=== PATIENT | female | born 1940 | race Caucasian/White ===

== ENCOUNTER 2019-10-16 07:45 | Inpatient (IN) | payer MEDICARE, BC ==
--- NOTE | 2019-10-16 08:03 | EDM.PDOC ---
ED HPI GENERAL MEDICAL PROBLEM - General Chief Complaint: Gastrointestinal Problem Stated Complaint: NAUSEA,VOMITING Time Seen by Provider: 10/16/19 07:58 Source of Information: Reports: Patient History Limitations: Reports: No Limitations - History of Present Illness INITIAL COMMENTS - FREE TEXT/NARRATIVE: 79-year-old female who had a hysterectomy and [facility] [place] on 2019 and he was discharged on 10/14/2019. She had by report an uneventful surgery with no problems but has been having fairly significant nausea all in the postoperative period. She was having nausea when she was discharged on Thursday and this is something that she has had following all of her previous surgeries and she reports that the nausea does is not being kept under control with the Zofran that she has been taking every 4 hours. She also had some constipation issues around her surgery and was given medication to help with this and has had diarrhea for the past 2-3 days with 6-7 loose stools yesterday. She has had some dry heaving and small amounts of emesis but mostly with just profound nausea. She has been taking some liquids but decreased amounts and she has not been eating. She tells me that she feels bad all over but she really has minimal pain in her abdomen that is diffuse and soreness that she would rated as mild. She has had no chest pains or arm or neck pain. She did have some low O2 saturations postoperatively and had workup which included a CT of her chest which showed no evidence of PE but she was discharged on oxygen at 1-2 L/m via nasal cannula. No fevers or chills. No dysuria. No cough. She does feel somewhat weak and is somewhat dizzy when standing. She is on Lasix adaily for peripheral edema and also usually on Zaroxolyn but has not been on Zaroxolyn for the past 3 days. There are no other associated signs or symptoms. There are no other modifying factors. 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(s) (Zofran) post op Pain Score (Numeric/FACES): 4 - Related Data Allergies Allergy/AdvReac Type Severity Reaction Status Date / Time cephalexin [From Keflex] Allergy Hives Verified 10/16/19 07:54 Home Meds: Home Meds Acetaminophen [Tylenol Arthritis] 650 mg PO Q8H PRN 10/16/19 [History] Amoxicillin 500 mg PO DAILY PRN 10/16/19 [History] Cholecalciferol (Vitamin D3) [Vitamin D3] 2,000 unit PO DAILY 10/16/19 [History] Enoxaparin [Lovenox] 40 mg SQ BID 10/16/19 [History] Furosemide 60 mg PO BID 10/16/19 [History] Multivit-Min/Iron/Folic/Lutein [Centrum Silver Women Tablet] 1 tab PO DAILY [History] Ondansetron [Ondansetron ODT] 4 mg PO Q4H PRN 10/16/19 [History] Potassium Chloride [Klor-Con M20] 60 meq PO BID 10/16/19 [History] Propylene Glycol/PEG 400/Pf [Systane 0.3-0.4% Eye Drops] 1 each OP Q4H PRN 10/16 [History] Simvastatin 40 mg PO BEDTIME 10/16/19 [History] Tapentadol [Nucynta] 50 mg PO Q12HR PRN 10/16/19 [History] allopurinoL [Zyloprim] 300 mg PO DAILY 10/16/19 [History] metFORMIN [Glucophage] 500 mg PO BIDMEALS 10/16/19 [History] metOLazone [Metolazone] 2.5 mg PO MOWEFR 10/16/19 [History] polyethylene glycoL 3350 [MiraLAX] 17 gm PO DAILY 10/16/19 [History] Past Medical History Cardiovascular History: Reports: High Cholesterol 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 Breast lumpectomy for breast cancer) Endocrine Surgical History: Reports: Thyroidectomy Musculoskeletal Surgical History: Reports: Knee Replacement (Bilateral total knee replacements) Social & Family History - Tobacco Use Smoking Status *Q: Unknown Ever Smoked (Nonsmoker) - Alcohol Use Alcohol Use History: No - Living Situation & Occupation Occupation: Retired Social History Comment: She is here with her daughter. ED ROS GENERAL - Review of Systems Review Of Systems: See Below Constitutional: Reports: Malaise, Weakness HEENT: Reports: Other (Dry mouth) Respiratory: Reports: No Symptoms (However, she is on supplemental oxygen secondary to intermittent low O2 saturations in the postoperative period) Cardiovascular: Reports: No Symptoms GI/Abdominal: Reports: Abdominal Pain (Mild), Diarrhea, Nausea, Vomiting (Dry heaving) : Reports: No Symptoms Musculoskeletal: Reports: Other (Bilateral leg swelling which is chronic.) Skin: Reports: No Symptoms Neurological: Reports: Dizziness, Weakness Hematologic/Lymphatic: Reports: No Symptoms Immunologic: Reports: No Symptoms ED EXAM, GENERAL - Physical Exam Exam: See Below Exam Limited By: No Limitations General Appearance: Alert, Moderate Distress (Appears uncomfortable. No respiratory distress. Nontoxic appearing.), Obese Eye Exam: Bilateral Eye: EOMI, Normal Inspection, PERRL Ears: Hearing Grossly Normal Ear Exam: Bilateral Ear: Auricle Normal Nose: Normal Inspection, Normal Mucosa, No Blood Throat/Mouth: Normal Voice, No Airway Compromise, Other (Driving his membranes) Head: Atraumatic, Normocephalic Neck: Normal Inspection, Supple, Non-Tender, Full Range of Motion Respiratory/Chest: No Respiratory Distress, Lungs Clear, Normal Breath Sounds, No Accessory Muscle Use, Chest Non-Tender Cardiovascular: Normal Peripheral Pulses, Regular Rate, Rhythm, No Murmur Peripheral Pulses: 2+: Radial (L), Radial (R) GI/Abdominal: Normal Bowel Sounds, Soft, No Mass, Tender (Mildly tender diffusely but no rebound or guarding.) Back Exam: Normal Inspection Extremities: Non-Tender, Normal Capillary Refill, Pedal Edema Neurological: Alert, Oriented, CN II-XII Intact, Normal Cognition, No Motor/ Sensory Deficits Skin Exam: Warm, Dry, Intact, Normal Color, No Rash EKG INTERPRETATION EKG Date: 10/16/19 Time: 09:27 Rhythm: NSR Rate (Beats/Min): 86 [place]: LAD-Left [place] Deviation P-Wave: Present QRS: Wide ST-T: Other (LVH with repolarization abnormality) QT: Prolonged (QTc) Comparison: NA - No Prior EKG Course - Vital Signs Last Recorded V/S: Last Vital Signs Temp 37.0 C 10/16/19 07:51 Pulse 84 10/16/19 09:45 Resp 16 10/16/19 09:45 BP 148/43 H 10/16/19 09:45 Pulse Ox 93 L 10/16/19 09:45 - Orders/Labs/Meds Orders: Active Orders 24 hr Category Date Time Status EKG Documentation Completion [RC] ASDIRECTED Care 10/16/19 08:20 Active CBC WITH AUTO DIFF [HEME] Stat Lab 10/16/19 08:37 Received CULTURE URINE [RM] Stat Lab 10/16/19 08:44 Received OCCULT BLOOD SCREEN [OP] Stat Lab 10/16/19 10:12 Ordered Pantoprazole [ProTONIX IV] Med 10/16/19 10:21 Once 80 mg IVPUSH .BOLUS ONE Sodium Chloride 0.9% [Normal Saline] 1,000 ml Med 10/16/19 08:30 Active IV ASDIRECTED Sodium Chloride 0.9% [Saline Flush] Med 10/16/19 08:17 Active 10 ml FLUSH ASDIRECTED PRN Peripheral IV Insertion Adult [OM.PC] Routine Oth 10/16/19 08:17 Ordered EKG 12 Lead [EK] Routine Ther 10/16/19 08:17 Ordered Medication Orders Sodium Chloride (Normal Saline) 1,000 mls @ 125 mls/hr IV ASDIRECTED GABBY Sodium Chloride (Saline Flush) 10 ml FLUSH ASDIRECTED PRN PRN Reason: Keep Vein Open Last Admin: 10/16/19 08:50 Dose: 10 ml Labs: Laboratory Tests 10/16/19 10/16/19 10/16/19 Range/Units 08:37 08:37 08:40 Sodium 143 (135-145) mmol/L Potassium 3.6 (3.5-5.3) mmol/L Chloride 102 (100-110) mmol/L Carbon Dioxide 35 H (21-32) mmol/L BUN 19 H (7-18) mg/dL Creatinine 0.9 (0.55-1.02) mg/dL Est Cr Clr Drug Dosing TNP Estimated GFR (MDRD) > 60 (>60) BUN/Creatinine Ratio 21.1 H (9-20) Glucose 151 H (80-116) mg/dL Calcium 8.9 (8.6-10.2) mg/dL Magnesium 1.2 L* (1.8-2.5) mg/dL Total Bilirubin 1.3 (0.1-1.3) mg/dL AST 26 H (5-25) IU/L ALT 19 (12-36) U/L Alkaline Phosphatase 84 (56-112) IU/L Troponin I 20.5 (4.0-60.3) pg/mL Total Protein 6.5 (6.0-8.0) g/dL Albumin 2.8 L (3.2-4.6) g/dL Globulin 3.7 g/dL Albumin/Globulin Ratio 0.8 Urine Color Yellow (YELLOW) Urine Appearance Clear (CLEAR) Urine pH 5.0 (5.0-6.5) Ur Specific [place] 1.010 (1.010-1.025) Urine Protein Negative (NEGATIVE) mg/dL Urine Glucose (UA) Normal (NORMAL) mg/dL Urine Ketones Negative (NEGATIVE) mg/dL Urine Occult Blood Negative (NEGATIVE) Urine Nitrite Negative (NEGATIVE) Urine Bilirubin Negative (NEGATIVE) Urine Urobilinogen Normal (NEGATIVE) mg/dL Ur Leukocyte Esterase Negative (NEGATIVE) Urine RBC 0-5 (0-5) Urine WBC 0-5 (0-5) Ur Squamous Epith Cells Many H (NS,R,O) Urine Bacteria Few H (NS) Meds: Medications Generic Name Dose Route Start Last Admin Trade Name Freq PRN Reason Stop Dose Admin Sodium Chloride 1,000 mls @ 125 mls/hr 10/16/19 08:30 Normal Saline IV ASDIRECTED GABBY Sodium Chloride 10 ml 10/16/19 08:17 10/16/19 08:50 Saline Flush FLUSH 10 ml ASDIRECTED PRN Administration Keep Vein Open Discontinued Medications Generic Name Dose Route Start Last Admin Trade Name Freq PRN Reason Stop Dose Admin Sodium Chloride 500 mls @ 999 mls/hr 10/16/19 08:21 10/16/19 09:20 Normal Saline IV 10/16/19 08:51 Infused .BOLUS ONE Infusion Magnesium Sulfate 2 gm/ Premix 50 mls @ 150 mls/hr 10/16/19 09:08 10/16/19 09 :22 IV 10/16/19 09:27 150 mls/hr ONETIME ONE Administration Magnesium Sulfate Confirm 10/16/19 09:12 10/16/19 09:29 Magnesium Sulfate In Water Premix Administered 10/16/19 09:13 Not Given Dose 50 mls @ as directed .ROUTE .STK-MED ONE Metoclopramide HCl 10 mg 10/16/19 08:21 10/16/19 08:53 Reglan IVPUSH 10/16/19 08:22 10 mg ONETIME ONE Administration Ondansetron HCl 4 mg 10/16/19 08:21 10/16/19 08:50 Zofran IVPUSH 10/16/19 08:22 4 mg ONETIME ONE Administration - Re-Assessments/Exams Free Text/Narrative Re-Assessment/Exam: 10/16/19 10:10: Patient is resting more comfortably. Nausea is decreased but still has some nausea. Her hemoglobin was 8 and her hematocrit was 21. Daughter reports that the patient's hemoglobin was 12 prior to surgery and 9 post surgery. I did do a rectal exam at this point and I sent for Hemoccult testing. I will, in addition, give the patient Protonix 80 mg IV. The patient has protracted nausea, vomiting and diarrhea with dehydration and with anemia. She also has hypomagnesemia. She will need admission for IV fluids, electrolyte correction, control of nausea/vomiting/diarrhea and for further assessment of this anemia with possible need for blood transfusion. This plan of care could not be accomplished at home or in any other setting at this point. She will need a greater then 2 midnight hospital stay to accomplish this plan of care. I have preliminarily discussed the patient's case with Dr. Yost and he has agreed to admit the patient. The patient and her family are in agreement with plans for admission. Departure - Departure Time of Disposition: 10:30 Disposition: Admitted As Inpatient 65 Condition: Fair (Stable) Clinical Impression: Nausea vomiting and diarrhea, Dehydration, moderate, Hypomagnesemia Anemia Qualifiers: Anemia type: unspecified type Qualified Code(s): D64.9 - Anemia, unspecified - Discharge Information Referrals: Lg Duenas MD [Primary Care Provider] - Forms: ED Department Discharge Sepsis Event Note - Evaluation Sepsis Screening Result: No Definite Risk - Focused Exam Vital Signs: Vital Signs Temp Pulse Resp BP Pulse Ox 10/16/19 09:45 84 16 148/43 H 93 L 10/16/19 07:51 37.0 C 84 16 111/27 L 94 L Date Exam was Performed: 10/16/19 Time Exam was Performed: 10:22 - My Orders Last 24 Hours: My Active Orders 10/16/19 08:17 Sodium Chloride 0.9% [Saline Flush] 10 ml FLUSH ASDIRECTED PRN Peripheral IV Insertion Adult [OM.PC] Routine EKG 12 Lead [EK] Routine 10/16/19 08:20 EKG Documentation Completion [RC] ASDIRECTED 10/16/19 08:30 Sodium Chloride 0.9% [Normal Saline] 1,000 ml IV ASDIRECTED 10/16/19 08:37 CBC WITH AUTO DIFF [HEME] Stat 10/16/19 08:44 CULTURE URINE [RM] Stat 10/16/19 10:12 OCCULT BLOOD SCREEN [OP] Stat 10/16/19 10:21 Pantoprazole [ProTONIX IV] 80 mg IVPUSH .BOLUS ONE - Assessment/Plan Last 24 Hours: My Active Orders 10/16/19 08:17 Sodium Chloride 0.9% [Saline Flush] 10 ml FLUSH ASDIRECTED PRN Peripheral IV Insertion Adult [OM.PC] Routine EKG 12 Lead [EK] Routine 10/16/19 08:20 EKG Documentation Completion [RC] ASDIRECTED 10/16/19 08:30 Sodium Chloride 0.9% [Normal Saline] 1,000 ml IV ASDIRECTED 10/16/19 08:37 CBC WITH AUTO DIFF [HEME] Stat 10/16/19 08:44 CULTURE URINE [RM] Stat 10/16/19 10:12 OCCULT BLOOD SCREEN [OP] Stat 10/16/19 10:21 Pantoprazole [ProTONIX IV] 80 mg IVPUSH .BOLUS ONE
[2019-10-16] MEDS ORDERED: Ondansetron 4 MG/2 ML SDV IVPUSH ONE (08:21)
[2019-10-16] MEDS ORDERED: Metoclopramide 10 MG/2 ML SDV IVPUSH ONE (08:21)
[2019-10-16] MEDS ORDERED: Sodium Chloride 0.9% 500 ML IV ONE (08:21)
[2019-10-16] MEDS ORDERED: Sodium Chloride 0.9% 1,000 ML IV SCH (08:30)
[2019-10-16] MEDS: Sodium Chloride 0.9% 10 ML Syringe FLUSH PRN (08:50)
[2019-10-16] MEDS ORDERED: Magnesium Sulfate/Water 2 GM in Premix Bag 1 BAG IV ONE (09:08)
[2019-10-16] MEDS ORDERED: Magnesium Sulfate/Water 50 ML ONE (09:12)
[2019-10-16] MEDS ORDERED: Pantoprazole 40 MG Vial IVPUSH ONE (10:21)
[2019-10-16] MEDS ORDERED: hydrOXYzine HCl 50 MG/ML SDV IM ONE (11:52)
[2019-10-16] MEDS ORDERED: Alum Hydroxide/Mag Hydroxide 15 ML, Lidocaine 2% 15 ML PO ONE ×2 (12:08)
--- NOTE | 2019-10-16 17:18 | PCM.HP.2 ---
H&P History of Present Illness - General Date of Service: 10/16/19 Admit Problem/Dx: Admission Diagnosis/Problem Admission Diagnosis/Problem Vomiting and diarrhea Source of Information: Patient History Limitations: Reports: No Limitations - History of Present Illness Initial Comments - Free Text/Narative: Tali is an 79-year-old female brought in because of intractable nausea vomiting postoperatively. She had the hysterectomy in 10/11/2019 and has had this struggle with nausea/vomiting and is not due to depending down. She denies any abdominal pain but has also had some loose stools associated with it. No fever chills no chest pain or shortness of breath. She did have postoperative anemia with hemoglobin down to 9 before she was discharged. She is previously healthy with exception of obesity, lymphedema that is well controlled. She further has type 2 diabetes, mild chronic kidney disease and hyperlipidemia stable post op Pain Score (Numeric/FACES): 4 - Related Data Allergies/Adverse Reactions: Allergies Allergy/AdvReac Type Severity Reaction Status Date / Time cephalexin [From Keflex] Allergy Hives Verified 10/16/19 12:54 oxycodone [From Tylox] Allergy Other Verified 10/16/19 12:54 Home Medications: Home Meds Acetaminophen [Tylenol Arthritis] 650 mg PO Q8H PRN 10/16/19 [History] Amoxicillin 500 mg PO DAILY PRN 10/16/19 [History] Cholecalciferol (Vitamin D3) [Vitamin D3] 2,000 unit PO DAILY 10/16/19 [History] Enoxaparin [Lovenox] 40 mg SQ BID 10/16/19 [History] Furosemide 60 mg PO BID 10/16/19 [History] Multivit-Min/Iron/Folic/Lutein [Centrum Silver Women Tablet] 1 tab PO DAILY [History] Ondansetron [Ondansetron ODT] 4 mg PO Q4H PRN 10/16/19 [History] Potassium Chloride [Klor-Con M20] 60 meq PO BID 10/16/19 [History] Propylene Glycol/PEG 400/Pf [Systane 0.3-0.4% Eye Drops] 1 each OP Q4H PRN 10/16 [History] Simvastatin 40 mg PO BEDTIME 10/16/19 [History] Tapentadol [Nucynta] 50 mg PO Q12HR PRN 10/16/19 [History] allopurinoL [Zyloprim] 300 mg PO DAILY 10/16/19 [History] metFORMIN [Glucophage] 500 mg PO BIDMEALS 10/16/19 [History] metOLazone [Metolazone] 2.5 mg PO MOWEFR 10/16/19 [History] polyethylene glycoL 3350 [MiraLAX] 17 gm PO DAILY 10/16/19 [History] Past Medical History Cardiovascular History: Reports: High Cholesterol 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 Musculoskeletal History: Reports: Gout, Other (See Below) Other Musculoskeletal History: peripheral edema Endocrine/Metabolic History: Reports: Diabetes, Type II, Hypothyroidism Oncologic (Cancer) History: Reports: Breast, Colon, Uterine - Past Surgical History HEENT Surgical History: Reports: Tonsillectomy GI Surgical History: Reports: Colon, Colonoscopy Female Surgical History: Reports: Hysterectomy, Other (See Below) Endocrine Surgical History: Reports: Thyroidectomy Musculoskeletal Surgical History: Reports: Knee Replacement Social & Family History - Tobacco Use Smoking Status *Q: Never Smoker Second Hand Smoke Exposure: No - Caffeine Use Caffeine Use: Reports: Coffee, Soda - Recreational Drug Use Recreational Drug Use: No - Living Situation & Occupation Occupation: Retired H&P Review of Systems - Review of Systems: Review Of Systems: Comprehensive ROS is negative, except as noted in HPI. Exam - Exam Exam: See Below - Vital Signs Vital Signs: Last Vital Signs Temp 97.7 F 10/16/19 10:50 Pulse 81 10/16/19 10:50 Resp 18 10/16/19 10:50 BP 109/50 L 10/16/19 10:50 Pulse Ox 96 10/16/19 10:50 Weight: 137.03 kg - Exam Quality Assessment: Supplemental Oxygen General: Alert, Oriented HEENT: PERRLA Neck: Supple, Trachea Midline, 2 Lungs: Clear to Auscultation Cardiovascular: Regular Rate, Regular Rhythm GI/Abdominal Exam: Normal Bowel Sounds, Soft, Non-Tender, No Organomegaly, No Distention, No Abnormal Bruit, No Mass, Pelvis Stable (Female) Exam: Deferred Rectal (Female) Exam: Deferred Back Exam: Normal Inspection, Full Range of Motion, NT Extremities: Pedal Edema Skin: Warm, Dry, Intact Neurological: Cranial Nerves Intact, Reflexes Equal Bilateral Neuro Extensive - Mental Status: Alert, Oriented x3, Normal Mood/Affect, Normal Cognition Neuro Extensive - Motor, Sensory, Reflexes: CN II-XII Intact, Normal Gait, Normal Reflexes Psychiatric: Alert, Normal Affect, Normal Mood - Patient Data Lab Results Last 24 hrs: Laboratory Results - last 24 hr 10/16/19 10/16/19 10/16/19 Range/Units 08:37 08:37 08:37 WBC 12.4 H (4.5-12.0) X10-3/uL RBC 2.37 L (3.23-5.20) x10(6)uL Hgb 7.6 L (11.5-15.5) g/dL Hct 22.8 L (30.0-51.3) % MCV 96.2 H (80-96) fL MCH 32.1 (27.7-33.6) pg MCHC 33.3 (32.2-35.4) g/dL RDW 15.4 (11.5-15.5) % Plt Count 254 (125-369) X10(3)uL MPV 11.7 H (7.4-10.4) fL Neut % (Auto) 81.3 (46-82) % Lymph % (Auto) 9.3 L (13-37) % [place] % (Auto) 6.4 (4-12) % Eos % (Auto) 1 (1.0-5.0) % Baso % (Auto) 0 (0-2) % Neut # (Auto) 10.1 H (1.6-8.3) # Lymph # (Auto) 1.2 (0.6-5.0) # [place] # (Auto) 0.8 (0.0-1.3) # Eos # (Auto) 0.2 (0.0-0.8) # Baso # (Auto) 0.0 (0.0-0.2) # Sodium 143 (135-145) mmol/L Potassium 3.6 (3.5-5.3) mmol/L Chloride 102 (100-110) mmol/L Carbon Dioxide 35 H (21-32) mmol/L BUN 19 H (7-18) mg/dL Creatinine 0.9 (0.55-1.02) mg/dL Est Cr Clr Drug Dosing TNP Estimated GFR (MDRD) > 60 (>60) BUN/Creatinine Ratio 21.1 H (9-20) Glucose 151 H (80-116) mg/dL Calcium 8.9 (8.6-10.2) mg/dL Magnesium 1.2 L* (1.8-2.5) mg/dL Total Bilirubin 1.3 (0.1-1.3) mg/dL AST 26 H (5-25) IU/L ALT 19 (12-36) U/L Alkaline Phosphatase 84 (56-112) IU/L Troponin I 20.5 (4.0-60.3) pg/mL Total Protein 6.5 (6.0-8.0) g/dL Albumin 2.8 L (3.2-4.6) g/dL Globulin 3.7 g/dL Albumin/Globulin Ratio 0.8 Urine Color (YELLOW) Urine Appearance (CLEAR) Urine pH (5.0-6.5) Ur Specific [place] (1.010-1.025) Urine Protein (NEGATIVE) mg/dL Urine Glucose (UA) (NORMAL) mg/dL Urine Ketones (NEGATIVE) mg/dL Urine Occult Blood (NEGATIVE) Urine Nitrite (NEGATIVE) Urine Bilirubin (NEGATIVE) Urine Urobilinogen (NEGATIVE) mg/dL Ur Leukocyte Esterase (NEGATIVE) Urine RBC (0-5) Urine WBC (0-5) Ur Squamous Epith Cells (NS,R,O) Urine Bacteria (NS) 10/16/19 Range/Units 08:40 WBC (4.5-12.0) X10-3/uL RBC (3.23-5.20) x10(6)uL Hgb (11.5-15.5) g/dL Hct (30.0-51.3) % MCV (80-96) fL MCH (27.7-33.6) pg MCHC (32.2-35.4) g/dL RDW (11.5-15.5) % Plt Count (125-369) X10(3)uL MPV (7.4-10.4) fL Neut % (Auto) (46-82) % Lymph % (Auto) (13-37) % [place] % (Auto) (4-12) % Eos % (Auto) (1.0-5.0) % Baso % (Auto) (0-2) % Neut # (Auto) (1.6-8.3) # Lymph # (Auto) (0.6-5.0) # [place] # (Auto) (0.0-1.3) # Eos # (Auto) (0.0-0.8) # Baso # (Auto) (0.0-0.2) # Sodium (135-145) mmol/L Potassium (3.5-5.3) mmol/L Chloride (100-110) mmol/L Carbon Dioxide (21-32) mmol/L BUN (7-18) mg/dL Creatinine (0.55-1.02) mg/dL Est Cr Clr Drug Dosing Estimated GFR (MDRD) (>60) BUN/Creatinine Ratio (9-20) Glucose (80-116) mg/dL Calcium (8.6-10.2) mg/dL Magnesium (1.8-2.5) mg/dL Total Bilirubin (0.1-1.3) mg/dL AST (5-25) IU/L ALT (12-36) U/L Alkaline Phosphatase (56-112) IU/L Troponin I (4.0-60.3) pg/mL Total Protein (6.0-8.0) g/dL Albumin (3.2-4.6) g/dL Globulin g/dL Albumin/Globulin Ratio Urine Color Yellow (YELLOW) Urine Appearance Clear (CLEAR) Urine pH 5.0 (5.0-6.5) Ur Specific [place] 1.010 (1.010-1.025) Urine Protein Negative (NEGATIVE) mg/dL Urine Glucose (UA) Normal (NORMAL) mg/dL Urine Ketones Negative (NEGATIVE) mg/dL Urine Occult Blood Negative (NEGATIVE) Urine Nitrite Negative (NEGATIVE) Urine Bilirubin Negative (NEGATIVE) Urine Urobilinogen Normal (NEGATIVE) mg/dL Ur Leukocyte Esterase Negative (NEGATIVE) Urine RBC 0-5 (0-5) Urine WBC 0-5 (0-5) Ur Squamous Epith Cells Many H (NS,R,O) Urine Bacteria Few H (NS) Result Diagrams: 10/16/19 08:37 10/16/19 08:37 Ar Results Last 24 hrs: Microbiology 10/16/19 10:12 Occult Blood - Final Stool / Feces Sepsis Event Note - Evaluation Sepsis Screening Result: No Definite Risk - Focused Exam Vital Signs: Vital Signs Temp Pulse Resp BP Pulse Ox 10/16/19 10:50 97.7 F 81 18 109/50 L 96 10/16/19 10:40 82 16 139/36 L 94 L 10/16/19 09:45 84 16 148/43 H 93 L 10/16/19 07:51 98.6 F 84 16 111/27 L 94 L Date Exam was Performed: 10/16/19 Time Exam was Performed: 17:14 - Problem List (1) Anemia SNOMED Code(s): 583423058 ICD Code: D64.9 - ANEMIA, UNSPECIFIED Status: Acute Current Visit: Yes Qualifiers: Anemia type: unspecified type Qualified Code(s): D64.9 - Anemia, unspecified (2) Postoperative state SNOMED Code(s): 97290606 ICD Code: Z98.890 - OTHER SPECIFIED POSTPROCEDURAL STATES Status: Acute Current Visit: Yes (3) Diabetes type 2, controlled SNOMED Code(s): 28747059, 573661333 ICD Code: E11.9 - TYPE 2 DIABETES MELLITUS WITHOUT COMPLICATIONS Status: Acute Current Visit: Yes (4) HLD (hyperlipidemia) SNOMED Code(s): 27263947 ICD Code: E78.5 - HYPERLIPIDEMIA, UNSPECIFIED Status: Acute Current Visit : Yes (5) Obesity SNOMED Code(s): 741195343, 012121847 ICD Code: E66.9 - OBESITY, UNSPECIFIED Status: Acute Current Visit: Yes (6) Dehydration, moderate SNOMED Code(s): 8165215638927 ICD Code: E86.0 - DEHYDRATION Status: Acute Current Visit: Yes (7) Hypomagnesemia SNOMED Code(s): 659521527 ICD Code: E83.42 - HYPOMAGNESEMIA Status: Acute Current Visit: Yes (8) Nausea vomiting and diarrhea SNOMED Code(s): 8627935 ICD Code: R11.2 - NAUSEA WITH VOMITING, UNSPECIFIED; R19.7 - DIARRHEA, UNSPECIFIED Status: Acute Current Visit: Yes Problem List Initiated/Reviewed/Updated: Yes Orders Last 24hrs: Active Orders 24 hr Category Date Time Status Admission Status [Patient Status] [ADT] Routine ADT 10/16/19 10:23 Active Cardiac Monitoring [RC] .As Directed Care 10/16/19 10:23 Active CULTURE URINE [RM] Stat Lab 10/16/19 08:44 Received Sodium Chloride 0.9% [Normal Saline] 1,000 ml Med 10/16/19 08:30 Active IV ASDIRECTED Sodium Chloride 0.9% [Saline Flush] Med 10/16/19 08:17 Active 10 ml FLUSH ASDIRECTED PRN Peripheral IV Insertion Adult [OM.PC] Routine Oth 10/16/19 08:17 Ordered EKG 12 Lead [EK] Routine Ther 10/16/19 08:17 Ordered EKG 12 Lead [EK] Routine Ther 10/16/19 12:07 Ordered Medication Orders Sodium Chloride (Normal Saline) 1,000 mls @ 125 mls/hr IV ASDIRECTED GABBY Last Admin: 10/16/19 13:46 Dose: 125 mls/hr Sodium Chloride (Saline Flush) 10 ml FLUSH ASDIRECTED PRN PRN Reason: Keep Vein Open Last Admin: 10/16/19 08:50 Dose: 10 ml Assessment/Plan Comment:: Admit for Transfusion,and IV fluid replacement. Use Vistaril PRN.Consult PT/OT
[2019-10-16] MEDS ORDERED: Furosemide 20 MG/2 ML VIAL IVPUSH ONE (17:19)
[2019-10-16] MEDS ORDERED: TAPENTADOL 50 MG PO PRN (17:20)
[2019-10-16] MEDS ORDERED: hydrOXYzine HCl 50 MG/ML SDV IM PRN (17:20)
[2019-10-16] MEDS ORDERED: Sodium Chloride 0.9% 250 ML IV SCH (17:30)
[2019-10-16] MEDS: Potassium Chloride 20 MEQ Tab.ER PO SCH (21:35)
[2019-10-16] MEDS: Enoxaparin 40 MG/0.4 ML Syringe SUBCUT SCH (21:35)
[2019-10-17] MEDS ORDERED: Furosemide 20 MG/2 ML VIAL ONE (01:43)
[2019-10-17] MEDS: Sodium Chloride 0.9% 10 ML Syringe FLUSH PRN (02:04)
[2019-10-17] MEDS: Multivitamin Tab PO SCH (08:38)
[2019-10-17] MEDS: Furosemide 20 MG Tab PO SCH ×2 (08:38→13:57)
[2019-10-17] MEDS: Metolazone 2.5 MG Tab PO SCH (08:38)
[2019-10-17] MEDS: Enoxaparin 40 MG/0.4 ML Syringe SUBCUT SCH ×2 (08:38→20:28)
[2019-10-17] MEDS: Potassium Chloride 20 MEQ Tab.ER PO SCH ×2 (08:39→20:29)
[2019-10-17] MEDS: Allopurinol 300 MG Tab PO SCH (08:39)
--- NOTE | 2019-10-17 08:44 | PCM.PN ---
- General Info Date of Service: 10/17/19 Subjective Update: Still feels weak, but appetite is improved and her nausea and vomiting has also improved. Functional Status: Reports: Pain Controlled, Tolerating Diet - Review of Systems General: Reports: Weakness HEENT: Reports: No Symptoms Pulmonary: Reports: No Symptoms Cardiovascular: Reports: No Symptoms Gastrointestinal: Reports: No Symptoms - Patient Data Vitals - Most Recent: Last Vital Signs Temp 98.3 F 10/17/19 01:30 Pulse 84 10/17/19 01:30 Resp 17 10/17/19 01:30 BP 103/45 L 10/17/19 01:30 Pulse Ox 94 L 10/17/19 00:00 Weight - Most Recent: 137.03 kg I&O - Last 24 Hours: Intake & Output 10/16/19 10/17/19 10/17/19 22:59 06:59 14:59 Intake Total 1131 510 Balance 1131 510 Lab Results Last 24 Hours: Laboratory Results - last 24 hr 10/16/19 10/16/19 10/16/19 Range/Units 08:36 08:37 08:37 WBC 12.4 H (4.5-12.0) X10-3/uL RBC 2.37 L (3.23-5.20) x10(6)uL Hgb 7.6 L (11.5-15.5) g/dL Hct 22.8 L (30.0-51.3) % MCV 96.2 H (80-96) fL MCH 32.1 (27.7-33.6) pg MCHC 33.3 (32.2-35.4) g/dL RDW 15.4 (11.5-15.5) % Plt Count 254 (125-369) X10(3)uL MPV 11.7 H (7.4-10.4) fL Neut % (Auto) 81.3 (46-82) % Lymph % (Auto) 9.3 L (13-37) % Terrell % (Auto) 6.4 (4-12) % Eos % (Auto) 1 (1.0-5.0) % Baso % (Auto) 0 (0-2) % Neut # (Auto) 10.1 H (1.6-8.3) # Lymph # (Auto) 1.2 (0.6-5.0) # Terrell # (Auto) 0.8 (0.0-1.3) # Eos # (Auto) 0.2 (0.0-0.8) # Baso # (Auto) 0.0 (0.0-0.2) # Sodium 143 (135-145) mmol/L Potassium 3.6 (3.5-5.3) mmol/L Chloride 102 (100-110) mmol/L Carbon Dioxide 35 H (21-32) mmol/L BUN 19 H (7-18) mg/dL Creatinine 0.9 (0.55-1.02) mg/dL Est Cr Clr Drug Dosing TNP Estimated GFR (MDRD) > 60 (>60) BUN/Creatinine Ratio 21.1 H (9-20) Glucose 151 H (80-116) mg/dL Calcium 8.9 (8.6-10.2) mg/dL Magnesium 1.2 L* (1.8-2.5) mg/dL Total Bilirubin 1.3 (0.1-1.3) mg/dL AST 26 H (5-25) IU/L ALT 19 (12-36) U/L Alkaline Phosphatase 84 (56-112) IU/L Troponin I (4.0-60.3) pg/mL Total Protein 6.5 (6.0-8.0) g/dL Albumin 2.8 L (3.2-4.6) g/dL Globulin 3.7 g/dL Albumin/Globulin Ratio 0.8 Urine Color (YELLOW) Urine Appearance (CLEAR) Urine pH (5.0-6.5) Ur Specific [place] (1.010-1.025) Urine Protein (NEGATIVE) mg/dL Urine Glucose (UA) (NORMAL) mg/dL Urine Ketones (NEGATIVE) mg/dL Urine Occult Blood (NEGATIVE) Urine Nitrite (NEGATIVE) Urine Bilirubin (NEGATIVE) Urine Urobilinogen (NEGATIVE) mg/dL Ur Leukocyte Esterase (NEGATIVE) Urine RBC (0-5) Urine WBC (0-5) Ur Squamous Epith Cells (NS,R,O) Urine Bacteria (NS) Blood Type O POSITIVE Gel Antibody Screen Negative Crossmatch See Detail 10/16/19 10/16/19 10/17/19 Range/Units 08:37 08:40 06:50 WBC (4.5-12.0) X10-3/uL RBC (3.23-5.20) x10(6)uL Hgb (11.5-15.5) g/dL Hct (30.0-51.3) % MCV (80-96) fL MCH (27.7-33.6) pg MCHC (32.2-35.4) g/dL RDW (11.5-15.5) % Plt Count (125-369) X10(3)uL MPV (7.4-10.4) fL Neut % (Auto) (46-82) % Lymph % (Auto) (13-37) % Terrell % (Auto) (4-12) % Eos % (Auto) (1.0-5.0) % Baso % (Auto) (0-2) % Neut # (Auto) (1.6-8.3) # Lymph # (Auto) (0.6-5.0) # Terrell # (Auto) (0.0-1.3) # Eos # (Auto) (0.0-0.8) # Baso # (Auto) (0.0-0.2) # Sodium 143 (135-145) mmol/L Potassium 3.5 (3.5-5.3) mmol/L Chloride 104 (100-110) mmol/L Carbon Dioxide 33 H (21-32) mmol/L BUN 16 (7-18) mg/dL Creatinine 0.8 (0.55-1.02) mg/dL Est Cr Clr Drug Dosing 52.50 Estimated GFR (MDRD) > 60 (>60) BUN/Creatinine Ratio 20.0 (9-20) Glucose 119 H (80-116) mg/dL Calcium 8.8 (8.6-10.2) mg/dL Magnesium (1.8-2.5) mg/dL Total Bilirubin (0.1-1.3) mg/dL AST (5-25) IU/L ALT (12-36) U/L Alkaline Phosphatase (56-112) IU/L Troponin I 20.5 (4.0-60.3) pg/mL Total Protein (6.0-8.0) g/dL Albumin (3.2-4.6) g/dL Globulin g/dL Albumin/Globulin Ratio Urine Color Yellow (YELLOW) Urine Appearance Clear (CLEAR) Urine pH 5.0 (5.0-6.5) Ur Specific [place] 1.010 (1.010-1.025) Urine Protein Negative (NEGATIVE) mg/dL Urine Glucose (UA) Normal (NORMAL) mg/dL Urine Ketones Negative (NEGATIVE) mg/dL Urine Occult Blood Negative (NEGATIVE) Urine Nitrite Negative (NEGATIVE) Urine Bilirubin Negative (NEGATIVE) Urine Urobilinogen Normal (NEGATIVE) mg/dL Ur Leukocyte Esterase Negative (NEGATIVE) Urine RBC 0-5 (0-5) Urine WBC 0-5 (0-5) Ur Squamous Epith Cells Many H (NS,R,O) Urine Bacteria Few H (NS) Blood Type Gel Antibody Screen Crossmatch Ar Results Last 24 Hours: Microbiology 10/16/19 08:44 Urine Culture - Preliminary Urine, Clean Catch 10/16/19 10:12 Occult Blood - Final Stool / Feces Med Orders - Current: Current Medications Acetaminophen (Tylenol Arthritis Pain) 650 mg PO Q8H PRN PRN Reason: Pain Allopurinol (Zyloprim) 300 mg PO DAILY [facility] Last Admin: 10/17/19 08:39 Dose: 300 mg Enoxaparin Sodium (Lovenox) 40 mg SUBCUT BID [facility] Last Admin: 10/17/19 08:38 Dose: 40 mg Furosemide (Lasix) 60 mg PO BIDDIURETIC [facility] Last Admin: 10/17/19 08:38 Dose: 60 mg Hydroxyzine HCl (Vistaril) 50 mg IM Q6H PRN PRN Reason: Nausea Sodium Chloride (Normal Saline) 250 mls @ 100 mls/hr IV ASDIRECTED [facility] Last Admin: 10/16/19 23:00 Dose: 100 mls/hr Metformin HCl (Glucophage) 500 mg PO BIDMEALS [facility] Metolazone (Zaroxolyn) 2.5 mg PO [id number]@[id number] [facility] Last Admin: 10/17/19 08:38 Dose: 2.5 mg Multivitamins/Minerals/Vitamin C (Tab-A-Deb) 1 tab PO DAILY [facility] Last Admin: 10/17/19 08:38 Dose: 1 tab Non-Formulary Medication (Propylene Glycol/Peg 400/Pf [Systane 0.3-0.4% Eye Drop ]) 1 each OP Q4H PRN PRN Reason: Dry Eyes Non-Formulary Medication (Tapentadol [Nucynta]) 50 mg PO Q12HR PRN PRN Reason: Pain Non-Formulary Medication (Cholecalciferol (Vitamin D3) [Vitamin D3]) 2,000 unit PO DAILY [facility] Potassium Chloride (Klor-Con M20) 60 meq PO BID [facility] Last Admin: 10/17/19 08:39 Dose: 60 meq Sodium Chloride (Saline Flush) 10 ml FLUSH ASDIRECTED PRN PRN Reason: Keep Vein Open Last Admin: 10/17/19 02:04 Dose: 10 ml Discontinued Medications Al Hydroxide/Mg Hydroxide 15 (ml/ Lidocaine HCl 15 ml) 0 ml PO ONETIME ONE Stop: 10/16/19 12:09 Last Admin: 10/16/19 12:18 Dose: 30 ml Furosemide (Lasix) 20 mg IVPUSH ONETIME ONE Stop: 10/16/19 17:20 Last Admin: 10/17/19 01:58 Dose: 20 mg Furosemide (Lasix) Confirm Administered Dose 20 mg .ROUTE .STK-MED ONE Stop: 10/17/19 01:44 Last Admin: 10/17/19 04:46 Dose: Not Given Hydroxyzine HCl (Vistaril) 100 mg IM ONETIME ONE Stop: 10/16/19 11:53 Last Admin: 10/16/19 12:13 Dose: 100 mg Sodium Chloride (Normal Saline) 500 mls @ 999 mls/hr IV .BOLUS ONE Stop: 10/16/19 08:51 Last Infusion: 10/16/19 09:20 Dose: Infused Sodium Chloride (Normal Saline) 1,000 mls @ 125 mls/hr IV ASDIRECTED [facility] Last Admin: 10/16/19 13:46 Dose: 125 mls/hr Magnesium Sulfate 2 gm/ Premix 50 mls @ 150 mls/hr IV ONETIME ONE Stop: 10/16/19 09:27 Last Admin: 10/16/19 09:22 Dose: 150 mls/hr Magnesium Sulfate (Magnesium Sulfate In Water Premix) Confirm Administered Dose 50 mls @ as directed .ROUTE .STK-MED ONE Stop: 10/16/19 09:13 Last Admin: 10/16/19 09:29 Dose: Not Given Metoclopramide HCl (Reglan) 10 mg IVPUSH ONETIME ONE Stop: 10/16/19 08:22 Last Admin: 10/16/19 08:53 Dose: 10 mg Ondansetron HCl (Zofran) 4 mg IVPUSH ONETIME ONE Stop: 10/16/19 08:22 Last Admin: 10/16/19 08:50 Dose: 4 mg Pantoprazole Sodium (Protonix Iv) 80 mg IVPUSH .BOLUS ONE Stop: 10/16/19 10:22 Last Admin: 10/16/19 11:15 Dose: 80 mg - Exam Quality Assessment: Supplemental Oxygen General: Alert, Oriented, Cooperative HEENT: Pupils Equal Neck: Supple Lungs: Decreased Breath Sounds, Rales Cardiovascular: Regular Rate Sepsis Event Note - Evaluation Sepsis Screening Result: No Definite Risk - Focused Exam Vital Signs: Vital Signs Temp Temp Pulse Resp BP Pulse Ox 10/17/19 01:30 98.3 F 84 17 103/45 L 10/17/19 00:00 97.7 F 70 18 116/56 L 94 L 10/16/19 23:21 98.5 F 80 16 118/52 L 96 10/16/19 23:07 98.6 F 80 16 123/56 L 97 Date Exam was Performed: 10/17/19 Time Exam was Performed: 08:42 - Problem List & Annotations (1) Nausea vomiting and diarrhea SNOMED Code(s): 9336354 Code(s): R11.2 - NAUSEA WITH VOMITING, UNSPECIFIED; R19.7 - DIARRHEA, UNSPECIFIED Status: Acute Current Visit: Yes (2) Anemia SNOMED Code(s): 358452096 Code(s): D64.9 - ANEMIA, UNSPECIFIED Status: Acute Current Visit: Yes Qualifiers: Anemia type: unspecified type Qualified Code(s): D64.9 - Anemia, unspecified (3) Postoperative state SNOMED Code(s): 42179103 Code(s): Z98.890 - OTHER SPECIFIED POSTPROCEDURAL STATES Status: Acute Current Visit: Yes (4) Diabetes type 2, controlled SNOMED Code(s): 19777428, 508700565 Code(s): E11.9 - TYPE 2 DIABETES MELLITUS WITHOUT COMPLICATIONS Status: Acute Current Visit: Yes (5) HLD (hyperlipidemia) SNOMED Code(s): 48915599 Code(s): E78.5 - HYPERLIPIDEMIA, UNSPECIFIED Status: Acute Current Visit : Yes (6) Obesity SNOMED Code(s): 543550655, 642853830 Code(s): E66.9 - OBESITY, UNSPECIFIED Status: Acute Current Visit: Yes (7) Dehydration, moderate SNOMED Code(s): 2110627142786 Code(s): E86.0 - DEHYDRATION Status: Acute Current Visit: Yes (8) Hypomagnesemia SNOMED Code(s): 295447904 Code(s): E83.42 - HYPOMAGNESEMIA Status: Acute Current Visit: Yes - Problem List Review Problem List Initiated/Reviewed/Updated: Yes - My Orders Last 24 Hours: My Active Orders 10/16/19 12:07 EKG 12 Lead [EK] Routine 10/16/19 17:19 Transfuse Red Blood Cells [COMM] Urgent 10/16/19 17:20 Acetaminophen [Tylenol Arthritis Pain] 650 mg PO Q8H PRN Propylene Glycol/PEG 400/Pf [Systane 0.3-0.4% Eye Drop] 1 each OP Q4H PRN Tapentadol [Nucynta] 50 mg PO Q12HR PRN hydrOXYzine HCL [Vistaril] 50 mg IM Q6H PRN 10/16/19 17:30 Sodium Chloride 0.9% [Normal Saline] 250 ml IV ASDIRECTED 10/16/19 19:31 Code Status [Resuscitation Status] Routine 10/16/19 21:00 Enoxaparin [Lovenox] 40 mg SUBCUT BID Potassium Chloride [Klor-Con M20] 60 meq PO BID 10/17/19 06:50 CBC WITH AUTO DIFF [HEME] Routine 10/17/19 08:00 metOLazone [Zaroxolyn] 2.5 mg PO MoWeFr@0730 10/17/19 08:40 Blood Glucose Check, Bedside [RC] TIDMEALS 10/17/19 08:41 CXR [Chest 2V] [CR] Routine 10/17/19 09:00 Cholecalciferol (Vitamin D3) [Vitamin D3] 2,000 unit PO DAILY Furosemide [Lasix] 60 mg PO BIDDIURETIC Multivitamins [Tab-A-Deb] 1 tab PO DAILY allopurinoL [Zyloprim] 300 mg PO DAILY 10/17/19 18:00 metFORMIN [Glucophage] 500 mg PO BIDMEALS 02/17/20 Breakfast Consistent Carbohydrate Diet [DIET] 10/18/19 05:11 CBC WITH AUTO DIFF [HEME] AM COMPREHENSIVE METABOLIC PN,CMP [CHEM] AM - Plan Plan:: There is some improvement. Will repeat CBC in AM,CXR today. Restart Metformin. Check glucose with meals. PT/OT/RT
[2019-10-17] MEDS ORDERED: traMADol 50 MG Tab PO PRN (09:38)
[2019-10-17] MEDS ORDERED: PEG 400/Propylene Glycol Ophth Soln 15 ML Bottle EYEBOTH PRN (10:15)
[2019-10-17] MEDS: Cholecalciferol (Vitamin D3) 25 MCG Tab PO SCH (11:03)
[2019-10-17] MEDS: metFORMIN 500 MG Tab PO SCH (17:17)
[2019-10-17] MEDS: Acetaminophen 650 MG Tab.ER PO PRN (20:27)
[2019-10-18] MEDS: Furosemide 20 MG Tab PO SCH ×2 (08:36→14:33)
[2019-10-18] MEDS: metFORMIN 500 MG Tab PO SCH (08:36)
[2019-10-18] MEDS: Potassium Chloride 20 MEQ Tab.ER PO SCH ×2 (08:37→20:36)
[2019-10-18] MEDS: Enoxaparin 40 MG/0.4 ML Syringe SUBCUT SCH ×2 (08:38→20:36)
[2019-10-18] MEDS: Multivitamin Tab PO SCH (08:38)
[2019-10-18] MEDS: Allopurinol 300 MG Tab PO SCH (08:39)
[2019-10-18] MEDS: Cholecalciferol (Vitamin D3) 25 MCG Tab PO SCH (08:39)
[2019-10-18] MEDS ORDERED: Sodium Chloride 0.9% 250 ML IV SCH (09:15)
[2019-10-18] MEDS ORDERED: Promethazine 25 MG/ML SDV IM ONE (09:18)
--- NOTE | 2019-10-18 09:21 | PCM.PN ---
- General Info Date of Service: 10/18/19 Subjective Update: Tali complains of nausea,and weakness this morning. No SOB. Hgb still at 7.6 despite 1 unit of blood. Functional Status: Reports: Pain Controlled - Review of Systems General: Reports: Weakness HEENT: Reports: No Symptoms Pulmonary: Reports: No Symptoms Cardiovascular: Reports: No Symptoms Gastrointestinal: Reports: Nausea. Denies: Constipation, Diarrhea Genitourinary: Reports: No Symptoms Musculoskeletal: Reports: No Symptoms - Patient Data Vitals - Most Recent: Last Vital Signs Temp 98 F 10/18/19 08:00 Pulse 73 10/18/19 08:00 Resp 18 10/18/19 08:00 BP 98/51 L 10/18/19 08:00 Pulse Ox 94 L 10/18/19 08:00 Weight - Most Recent: 136.305 kg Lab Results Last 24 Hours: Laboratory Results - last 24 hr 10/16/19 10/17/19 10/17/19 Range/Units 08:36 06:50 11:33 WBC 9.8 (4.5-12.0) X10-3/uL RBC 2.43 L (3.23-5.20) x10(6)uL Hgb 7.6 L (11.5-15.5) g/dL Hct 23.9 L (30.0-51.3) % MCV 98.4 H (80-96) fL MCH 31.3 (27.7-33.6) pg MCHC 31.8 L (32.2-35.4) g/dL RDW 16.3 H (11.5-15.5) % Plt Count 267 (125-369) X10(3)uL MPV 10.8 H (7.4-10.4) fL Add Manual Diff Yes Neutrophils % (Manual) 74 (46-82) % Band Neutrophils % 6 (0-6) % Lymphocytes % (Manual) 10 L (13-37) % Monocytes % (Manual) 7 (4-12) % Eosinophils % (Manual) 3 (0-5) % Nucleated RBCs 1 H (0-0) /100WBC Differential Comment See note Polychromasia Few Poikilocytosis Rare Anisocytosis Moderate H Macrocytosis Rare Sodium (135-145) mmol/L Potassium (3.5-5.3) mmol/L Chloride (100-110) mmol/L Carbon Dioxide (21-32) mmol/L BUN (7-18) mg/dL Creatinine (0.55-1.02) mg/dL Est Cr Clr Drug Dosing mL/min Estimated GFR (MDRD) (>60) BUN/Creatinine Ratio (9-20) Glucose (80-116) mg/dL POC Glucose 128 H (80-116) mg/dL Calcium (8.6-10.2) mg/dL Total Bilirubin (0.1-1.3) mg/dL AST (5-25) IU/L ALT (12-36) U/L Alkaline Phosphatase (56-112) IU/L Total Protein (6.0-8.0) g/dL Albumin (3.2-4.6) g/dL Globulin g/dL Albumin/Globulin Ratio Crossmatch See Detail 10/17/19 10/18/19 Range/Units 17:10 06:40 WBC (4.5-12.0) X10-3/uL RBC (3.23-5.20) x10(6)uL Hgb (11.5-15.5) g/dL Hct (30.0-51.3) % MCV (80-96) fL MCH (27.7-33.6) pg MCHC (32.2-35.4) g/dL RDW (11.5-15.5) % Plt Count (125-369) X10(3)uL MPV (7.4-10.4) fL Add Manual Diff Neutrophils % (Manual) (46-82) % Band Neutrophils % (0-6) % Lymphocytes % (Manual) (13-37) % Monocytes % (Manual) (4-12) % Eosinophils % (Manual) (0-5) % Nucleated RBCs (0-0) /100WBC Differential Comment Polychromasia Poikilocytosis Anisocytosis Macrocytosis Sodium 144 (135-145) mmol/L Potassium 3.2 L (3.5-5.3) mmol/L Chloride 100 (100-110) mmol/L Carbon Dioxide 36 H (21-32) mmol/L BUN 16 (7-18) mg/dL Creatinine 0.8 (0.55-1.02) mg/dL Est Cr Clr Drug Dosing 52.50 mL/min Estimated GFR (MDRD) > 60 (>60) BUN/Creatinine Ratio 20.0 (9-20) Glucose 107 (80-116) mg/dL POC Glucose 136 H (80-116) mg/dL Calcium 8.3 L (8.6-10.2) mg/dL Total Bilirubin 1.5 H (0.1-1.3) mg/dL AST 28 H (5-25) IU/L ALT 17 D (12-36) U/L Alkaline Phosphatase 73 (56-112) IU/L Total Protein 5.8 L (6.0-8.0) g/dL Albumin 2.5 L (3.2-4.6) g/dL Globulin 3.3 g/dL Albumin/Globulin Ratio 0.8 Crossmatch Ar Results Last 24 Hours: Microbiology 10/16/19 08:44 Urine Culture - Final Urine, Clean Catch Med Orders - Current: Current Medications Acetaminophen (Tylenol Arthritis Pain) 650 mg PO Q8H PRN PRN Reason: Pain Last Admin: 10/17/19 20:27 Dose: 650 mg Allopurinol (Zyloprim) 300 mg PO DAILY [facility] Last Admin: 10/18/19 08:39 Dose: 300 mg Cholecalciferol (Vitamin D3) 50 mcg PO DAILY [facility] Last Admin: 10/18/19 08:39 Dose: 50 mcg Enoxaparin Sodium (Lovenox) 40 mg SUBCUT BID [facility] Last Admin: 10/18/19 08:38 Dose: 40 mg Furosemide (Lasix) 60 mg PO BIDDIURETIC [facility] Last Admin: 10/18/19 08:36 Dose: 60 mg Glipizide (Glucotrol Xl) 5 mg PO DAILY [facility] Hydroxyzine HCl (Vistaril) 50 mg IM Q6H PRN PRN Reason: Nausea Sodium Chloride (Normal Saline) 250 mls @ 100 mls/hr IV ASDIRECTED [facility] Last Admin: 10/16/19 23:00 Dose: 100 mls/hr Sodium Chloride (Normal Saline) 250 mls @ 100 mls/hr IV ASDIRECTED [facility] Metolazone (Zaroxolyn) 2.5 mg PO MoWeFr@[id number] [facility] Last Admin: 10/17/19 08:38 Dose: 2.5 mg Multivitamins/Minerals/Vitamin C (Tab-A-Deb) 1 tab PO DAILY [facility] Last Admin: 10/18/19 08:38 Dose: 1 tab Potassium Chloride (Klor-Con M20) 60 meq PO BID [facility] Last Admin: 10/18/19 08:37 Dose: 60 meq Propylene Glycol (Systane Lubricant) 0 ml EYEBOTH Q4H PRN PRN Reason: DRY EYES Sodium Chloride (Saline Flush) 10 ml FLUSH ASDIRECTED PRN PRN Reason: Keep Vein Open Last Admin: 10/17/19 02:04 Dose: 10 ml Tramadol HCl (Ultram) 50 mg PO Q4H PRN PRN Reason: MODERATE PAIN Discontinued Medications Al Hydroxide/Mg Hydroxide 15 (ml/ Lidocaine HCl 15 ml) 0 ml PO ONETIME ONE Stop: 10/16/19 12:09 Last Admin: 10/16/19 12:18 Dose: 30 ml Furosemide (Lasix) 20 mg IVPUSH ONETIME ONE Stop: 10/16/19 17:20 Last Admin: 10/17/19 01:58 Dose: 20 mg Furosemide (Lasix) Confirm Administered Dose 20 mg .ROUTE .STK-MED ONE Stop: 10/17/19 01:44 Last Admin: 10/17/19 04:46 Dose: Not Given Hydroxyzine HCl (Vistaril) 100 mg IM ONETIME ONE Stop: 10/16/19 11:53 Last Admin: 10/16/19 12:13 Dose: 100 mg Sodium Chloride (Normal Saline) 500 mls @ 999 mls/hr IV .BOLUS ONE Stop: 10/16/19 08:51 Last Infusion: 10/16/19 09:20 Dose: Infused Sodium Chloride (Normal Saline) 1,000 mls @ 125 mls/hr IV ASDIRECTED [facility] Last Admin: 10/16/19 13:46 Dose: 125 mls/hr Magnesium Sulfate 2 gm/ Premix 50 mls @ 150 mls/hr IV ONETIME ONE Stop: 10/16/19 09:27 Last Admin: 10/16/19 09:22 Dose: 150 mls/hr Magnesium Sulfate (Magnesium Sulfate In Water Premix) Confirm Administered Dose 50 mls @ as directed .ROUTE .STK-MED ONE Stop: 10/16/19 09:13 Last Admin: 10/16/19 09:29 Dose: Not Given [facility] Last Admin: 10/18/19 08:36 Dose: 500 mg Metoclopramide HCl (Reglan) 10 mg IVPUSH ONETIME ONE Stop: 10/16/19 08:22 Last Admin: 10/16/19 08:53 Dose: 10 mg Non-Formulary Medication (Tapentadol [Nucynta]) 50 mg PO Q12HR PRN PRN Reason: Pain Ondansetron HCl (Zofran) 4 mg IVPUSH ONETIME ONE Stop: 10/16/19 08:22 Last Admin: 10/16/19 08:50 Dose: 4 mg Pantoprazole Sodium (Protonix Iv) 80 mg IVPUSH .BOLUS ONE Stop: 10/16/19 10:22 Last Admin: 10/16/19 11:15 Dose: 80 mg - Exam General: Alert, Oriented Neck: Supple Lungs: Clear to Auscultation Cardiovascular: Regular Rate Sepsis Event Note - Evaluation Sepsis Screening Result: No Definite Risk - Focused Exam Vital Signs: Vital Signs Temp Pulse Resp BP Pulse Ox Pulse Ox 10/18/19 08:00 98 F 73 18 98/51 L 94 L 10/18/19 02:00 98.3 F 84 20 104/50 L 92 L 92 L Date Exam was Performed: 10/18/19 Time Exam was Performed: 09:18 - Problem List & Annotations (1) Nausea vomiting and diarrhea SNOMED Code(s): 9279637 Code(s): R11.2 - NAUSEA WITH VOMITING, UNSPECIFIED; R19.7 - DIARRHEA, UNSPECIFIED Status: Acute Current Visit: Yes (2) Anemia SNOMED Code(s): 673962265 Code(s): D64.9 - ANEMIA, UNSPECIFIED Status: Acute Current Visit: Yes Qualifiers: Anemia type: unspecified type Qualified Code(s): D64.9 - Anemia, unspecified (3) Postoperative state SNOMED Code(s): 97507564 Code(s): Z98.890 - OTHER SPECIFIED POSTPROCEDURAL STATES Status: Acute Current Visit: Yes (4) Diabetes type 2, controlled SNOMED Code(s): 17814317, 090791283 Code(s): E11.9 - TYPE 2 DIABETES MELLITUS WITHOUT COMPLICATIONS Status: Acute Current Visit: Yes (5) HLD (hyperlipidemia) SNOMED Code(s): 83786274 Code(s): E78.5 - HYPERLIPIDEMIA, UNSPECIFIED Status: Acute Current Visit : Yes (6) Obesity SNOMED Code(s): 341866178, 744425262 Code(s): E66.9 - OBESITY, UNSPECIFIED Status: Acute Current Visit: Yes (7) Dehydration, moderate SNOMED Code(s): 5698302434000 Code(s): E86.0 - DEHYDRATION Status: Acute Current Visit: Yes (8) Hypomagnesemia SNOMED Code(s): 820439419 Code(s): E83.42 - HYPOMAGNESEMIA Status: Acute Current Visit: Yes - Problem List Review Problem List Initiated/Reviewed/Updated: Yes - My Orders Last 24 Hours: My Active Orders 10/17/19 08:40 Blood Glucose Check, Bedside [RC] TIDMEALS 10/17/19 08:41 CXR [Chest 2V] [CR] Routine 10/17/19 09:00 Cholecalciferol (Vitamin D3) [Vitamin D3] 50 mcg PO DAILY Furosemide [Lasix] 60 mg PO BIDDIURETIC Multivitamins [Tab-A-Deb] 1 tab PO DAILY allopurinoL [Zyloprim] 300 mg PO DAILY 10/17/19 09:38 traMADol [Ultram] 50 mg PO Q4H PRN 10/17/19 10:15 PEG 400/Propylene Glycol [Systane Lubricant] 0 ml EYEBOTH Q4H PRN 10/18/19 06:40 CBC WITH AUTO DIFF [HEME] AM 10/18/19 09:15 Sodium Chloride 0.9% [Normal Saline] 250 ml IV ASDIRECTED Transfuse PRBC [Transfuse Red Blood Cells] [COMM] Urgent 10/18/19 09:18 Promethazine [Phenergan] 25 mg IM ONETIME ONE 10/19/19 05:11 BASIC METABOLIC PANEL,BMP [CHEM] AM MAGNESIUM [CHEM] AM 10/19/19 09:00 glipiZIDE [Glucotrol XL] 5 mg PO DAILY - Plan Plan:: I will stop metformin because this can contribute to nausea. In place I will start glipizide. I've also ordered one more unit of PRBCs, and promethazine 25 1 dose for nausea.Vistaril PRN. Continue physical therapy and the rest of her current prescriptions.
[2019-10-18] MEDS: glipiZIDE 5 MG Tab.ER PO SCH (10:27)
[2019-10-18] MEDS: Pantoprazole 40 MG Tab.CR PO SCH (10:27)
[2019-10-18] MEDS: Acetaminophen 650 MG Tab.ER PO PRN (23:02)
[2019-10-19] MEDS: Pantoprazole 40 MG Tab.CR PO SCH (06:17)
--- NOTE | 2019-10-19 08:52 | PCM.PN ---
- General Info Date of Service: 10/19/19 Subjective Update: Tali complains of NO nausea or weakness this morning. No SOB. Hgb still pending. Functional Status: Reports: Pain Controlled - Review of Systems General: Reports: Weakness HEENT: Reports: No Symptoms Pulmonary: Reports: No Symptoms Cardiovascular: Reports: No Symptoms Gastrointestinal: Reports: No Symptoms Genitourinary: Reports: No Symptoms - Patient Data Vitals - Most Recent: Last Vital Signs Temp 98 F 10/18/19 23:18 Pulse 79 10/18/19 23:18 Resp 18 10/18/19 23:18 BP 112/52 L 10/18/19 23:18 Pulse Ox 94 L 10/18/19 23:18 Weight - Most Recent: 136.305 kg I&O - Last 24 Hours: Intake & Output 10/18/19 10/19/19 10/19/19 22:59 06:59 14:59 Intake Total 404 Balance 404 Lab Results Last 24 Hours: Laboratory Results - last 24 hr 10/16/19 10/18/19 10/18/19 Range/Units 08:36 06:40 12:12 WBC 8.5 (4.5-12.0) X10-3/uL RBC 2.45 L (3.23-5.20) x10(6)uL Hgb 7.5 L (11.5-15.5) g/dL Hct 23.4 L (30.0-51.3) % MCV 95.5 (80-96) fL MCH 30.6 (27.7-33.6) pg MCHC 32.1 L (32.2-35.4) g/dL RDW 15.9 H (11.5-15.5) % Plt Count 254 (125-369) X10(3)uL MPV 10.9 H (7.4-10.4) fL Neut % (Auto) 72.3 (46-82) % Lymph % (Auto) 12.6 L (13-37) % [place] % (Auto) 6.5 (4-12) % Eos % (Auto) 6 H (1.0-5.0) % Baso % (Auto) 0 (0-2) % Neut # (Auto) 6.1 (1.6-8.3) # Lymph # (Auto) 1.1 (0.6-5.0) # [place] # (Auto) 0.6 (0.0-1.3) # Eos # (Auto) 0.5 (0.0-0.8) # Baso # (Auto) 0.0 (0.0-0.2) # Sodium (135-145) mmol/L Potassium (3.5-5.3) mmol/L Chloride (100-110) mmol/L Carbon Dioxide (21-32) mmol/L BUN (7-18) mg/dL Creatinine (0.55-1.02) mg/dL Est Cr Clr Drug Dosing mL/min Estimated GFR (MDRD) (>60) BUN/Creatinine Ratio (9-20) Glucose (80-116) mg/dL POC Glucose 118 H (80-116) mg/dL Calcium (8.6-10.2) mg/dL Magnesium (1.8-2.5) mg/dL Urine Color (YELLOW) Urine Appearance (CLEAR) Urine pH (5.0-6.5) Ur Specific [place] (1.010-1.025) Urine Protein (NEGATIVE) mg/dL Urine Glucose (UA) (NORMAL) mg/dL Urine Ketones (NEGATIVE) mg/dL Urine Occult Blood (NEGATIVE) Urine Nitrite (NEGATIVE) Urine Bilirubin (NEGATIVE) Urine Urobilinogen (NEGATIVE) mg/dL Ur Leukocyte Esterase (NEGATIVE) Urine RBC (0-5) Urine WBC (0-5) Ur Squamous Epith Cells (NS,R,O) Urine Bacteria (NS) Blood Type O POSITIVE Gel Antibody Screen Negative Crossmatch See Detail 10/18/19 10/18/19 10/19/19 Range/Units 15:50 17:00 06:40 WBC (4.5-12.0) X10-3/uL RBC (3.23-5.20) x10(6)uL Hgb (11.5-15.5) g/dL Hct (30.0-51.3) % MCV (80-96) fL MCH (27.7-33.6) pg MCHC (32.2-35.4) g/dL RDW (11.5-15.5) % Plt Count (125-369) X10(3)uL MPV (7.4-10.4) fL Neut % (Auto) (46-82) % Lymph % (Auto) (13-37) % [place] % (Auto) (4-12) % Eos % (Auto) (1.0-5.0) % Baso % (Auto) (0-2) % Neut # (Auto) (1.6-8.3) # Lymph # (Auto) (0.6-5.0) # [place] # (Auto) (0.0-1.3) # Eos # (Auto) (0.0-0.8) # Baso # (Auto) (0.0-0.2) # Sodium 142 (135-145) mmol/L Potassium 3.1 L (3.5-5.3) mmol/L Chloride 100 (100-110) mmol/L Carbon Dioxide 36 H (21-32) mmol/L BUN 17 (7-18) mg/dL Creatinine 0.9 (0.55-1.02) mg/dL Est Cr Clr Drug Dosing 46.67 mL/min Estimated GFR (MDRD) > 60 (>60) BUN/Creatinine Ratio 18.9 (9-20) Glucose 91 (80-116) mg/dL POC Glucose 97 (80-116) mg/dL Calcium 8.7 (8.6-10.2) mg/dL Magnesium 1.0 L* (1.8-2.5) mg/dL Urine Color Yellow (YELLOW) Urine Appearance Clear (CLEAR) Urine pH 6.5 (5.0-6.5) Ur Specific [place] 1.000 L (1.010-1.025) Urine Protein Negative (NEGATIVE) mg/dL Urine Glucose (UA) Normal (NORMAL) mg/dL Urine Ketones Negative (NEGATIVE) mg/dL Urine Occult Blood Negative (NEGATIVE) Urine Nitrite Negative (NEGATIVE) Urine Bilirubin Negative (NEGATIVE) Urine Urobilinogen Normal (NEGATIVE) mg/dL Ur Leukocyte Esterase Negative (NEGATIVE) Urine RBC 0-5 (0-5) Urine WBC 0-5 (0-5) Ur Squamous Epith Cells Few H (NS,R,O) Urine Bacteria Few H (NS) Blood Type Gel Antibody Screen Crossmatch Ar Results Last 24 Hours: Microbiology 10/16/19 08:44 Urine Culture - Final Urine, Clean Catch Med Orders - Current: Current Medications Acetaminophen (Tylenol Arthritis Pain) 650 mg PO Q8H PRN PRN Reason: Pain Last Admin: 10/18/19 23:02 Dose: 650 mg Allopurinol (Zyloprim) 300 mg PO DAILY [facility] Last Admin: 10/18/19 08:39 Dose: 300 mg Cholecalciferol (Vitamin D3) 50 mcg PO DAILY [facility] Last Admin: 10/18/19 08:39 Dose: 50 mcg Enoxaparin Sodium (Lovenox) 40 mg SUBCUT BID [facility] Last Admin: 10/18/19 20:36 Dose: 40 mg Ferrous Sulfate (Ferrous Sulfate) 325 mg PO DAILY [facility] Furosemide (Lasix) 60 mg PO BIDDIURETIC [facility] Last Admin: 10/18/19 14:33 Dose: Not Given Glipizide (Glucotrol Xl) 5 mg PO DAILY [facility] Last Admin: 10/18/19 10:27 Dose: 5 mg Hydroxyzine HCl (Vistaril) 50 mg IM Q6H PRN PRN Reason: Nausea Last Admin: 10/18/19 12:45 Dose: 50 mg Sodium Chloride (Normal Saline) 250 mls @ 100 mls/hr IV ASDIRECTED [facility] Last Admin: 10/16/19 23:00 Dose: 100 mls/hr Sodium Chloride (Normal Saline) 250 mls @ 100 mls/hr IV ASDIRECTED [facility] Magnesium Oxide (Magnesium Oxide) 400 mg PO TID [facility] Metolazone (Zaroxolyn) 2.5 mg PO MoWeFr@0730 [facility] Last Admin: 10/17/19 08:38 Dose: 2.5 mg Multivitamins/Minerals/Vitamin C (Tab-A-Deb) 1 tab PO DAILY [facility] Last Admin: 10/18/19 08:38 Dose: 1 tab Pantoprazole Sodium (Protonix) 40 mg PO DAILY@0600 [facility] Last Admin: 10/19/19 06:17 Dose: 40 mg Potassium Chloride (Klor-Con M20) 40 meq PO TID [facility] Propylene Glycol (Systane Lubricant) 0 ml EYEBOTH Q4H PRN PRN Reason: DRY EYES Sodium Chloride (Saline Flush) 10 ml FLUSH ASDIRECTED PRN PRN Reason: Keep Vein Open Last Admin: 10/17/19 02:04 Dose: 10 ml Tramadol HCl (Ultram) 50 mg PO Q4H PRN PRN Reason: MODERATE PAIN Discontinued Medications Al Hydroxide/Mg Hydroxide 15 (ml/ Lidocaine HCl 15 ml) 0 ml PO ONETIME ONE Stop: 10/16/19 12:09 Last Admin: 10/16/19 12:18 Dose: 30 ml Furosemide (Lasix) 20 mg IVPUSH ONETIME ONE Stop: 10/16/19 17:20 Last Admin: 10/17/19 01:58 Dose: 20 mg Furosemide (Lasix) Confirm Administered Dose 20 mg .ROUTE .STK-MED ONE Stop: 10/17/19 01:44 Last Admin: 10/17/19 04:46 Dose: Not Given Hydroxyzine HCl (Vistaril) 100 mg IM ONETIME ONE Stop: 10/16/19 11:53 Last Admin: 10/16/19 12:13 Dose: 100 mg Sodium Chloride (Normal Saline) 500 mls @ 999 mls/hr IV .BOLUS ONE Stop: 10/16/19 08:51 Last Infusion: 10/16/19 09:20 Dose: Infused Sodium Chloride (Normal Saline) 1,000 mls @ 125 [facility] Last Admin: 10/16/19 13:46 Dose: 125 mls/hr Magnesium Sulfate 2 gm/ Premix 50 mls @ 150 mls/hr IV ONETIME ONE Stop: 10/16/19 09:27 Last Admin: 10/16/19 09:22 Dose: 150 mls/hr Magnesium Sulfate (Magnesium Sulfate In Water Premix) Confirm Administered Dose 50 mls @ as directed .ROUTE .STK-MED ONE Stop: 10/16/19 09:13 Last Admin: 10/16/19 09:29 Dose: Not Given [facility] Last Admin: 10/18/19 08:36 Dose: 500 mg Metoclopramide HCl (Reglan) 10 mg IVPUSH ONETIME ONE Stop: 10/16/19 08:22 Last Admin: 10/16/19 08:53 Dose: 10 mg Non-Formulary Medication (Tapentadol [Nucynta]) 50 mg PO Q12HR PRN PRN Reason: Pain Ondansetron HCl (Zofran) 4 mg IVPUSH ONETIME ONE Stop: 10/16/19 08:22 Last Admin: 10/16/19 08:50 Dose: 4 mg Pantoprazole Sodium (Protonix Iv) 80 mg IVPUSH .BOLUS ONE Stop: 10/16/19 10:22 Last Admin: 10/16/19 11:15 Dose: 80 mg Potassium Chloride (Klor-Con M20) 60 meq PO BID [facility] Last Admin: 10/18/19 20:36 Dose: 60 meq Promethazine HCl (Phenergan) 25 mg IM ONETIME ONE Stop: 10/18/19 09:19 Last Admin: 10/18/19 10:26 Dose: 25 mg - Exam General: Alert, Oriented Neck: Supple Lungs: Clear to Auscultation Cardiovascular: Regular Rate Sepsis Event Note - Evaluation Sepsis Screening Result: No Definite Risk - Focused Exam Vital Signs: Vital Signs Temp Pulse Resp BP Pulse Ox 10/18/19 23:18 98 F 79 18 112/52 L 94 L Date Exam was Performed: 10/19/19 Time Exam was Performed: 08:49 - Problem List & Annotations (1) Nausea vomiting and diarrhea SNOMED Code(s): 8049664 Code(s): R11.2 - NAUSEA WITH VOMITING, UNSPECIFIED; R19.7 - DIARRHEA, UNSPECIFIED Status: Acute Current Visit: Yes (2) Anemia SNOMED Code(s): 549923381 Code(s): D64.9 - ANEMIA, UNSPECIFIED Status: Acute Current Visit: Yes Qualifiers: Anemia type: unspecified type Qualified Code(s): D64.9 - Anemia, unspecified (3) Postoperative state SNOMED Code(s): 10029148 Code(s): Z98.890 - OTHER SPECIFIED POSTPROCEDURAL STATES Status: Acute Current Visit: Yes (4) Diabetes type 2, controlled SNOMED Code(s): 56158228, 738785838 Code(s): E11.9 - TYPE 2 DIABETES MELLITUS WITHOUT COMPLICATIONS Status: Acute Current Visit: Yes (5) HLD (hyperlipidemia) SNOMED Code(s): 56798156 Code(s): E78.5 - HYPERLIPIDEMIA, UNSPECIFIED Status: Acute Current Visit : Yes (6) Obesity SNOMED Code(s): 125460482, 351399383 Code(s): E66.9 - OBESITY, UNSPECIFIED Status: Acute Current Visit: Yes (7) Dehydration, moderate SNOMED Code(s): 5742638777491 Code(s): E86.0 - DEHYDRATION Status: Acute Current Visit: Yes (8) Hypomagnesemia SNOMED Code(s): 867046867 Code(s): E83.42 - HYPOMAGNESEMIA Status: Acute Current Visit: Yes (9) Occult blood in stools SNOMED Code(s): 56908704 Code(s): R19.5 - OTHER FECAL ABNORMALITIES Status: Acute Current Visit: Yes (10) Hypokalemia SNOMED Code(s): 89089563 Code(s): E87.6 - HYPOKALEMIA Status: Acute Current Visit: Yes - Problem List Review Problem List Initiated/Reviewed/Updated: Yes - My Orders Last 24 Hours: My Active Orders 10/18/19 09:15 Sodium Chloride 0.9% [Normal Saline] 250 ml IV ASDIRECTED Transfuse PRBC [Transfuse Red Blood Cells] [COMM] Urgent 10/18/19 10:00 Pantoprazole [ProTONIX] 40 mg PO DAILY@0600 glipiZIDE [Glucotrol XL] 5 mg PO DAILY 10/19/19 07:39 CBC WITH AUTO DIFF [HEME] Stat 10/19/19 09:00 Ferrous Sulfate 325 mg PO DAILY Magnesium Oxide 400 mg PO TID Potassium Chloride [Klor-Con M20] 40 meq PO TID 10/20/19 05:11 BASIC METABOLIC PANEL,BMP [CHEM] AM CBC WITH AUTO DIFF [HEME] AM - Plan Plan:: I am still waiting for the hemoglobin from this morning. But she has improved clinically. The POSITIVE STOOLS ARE LIKELY DUE TO IRON SUPPLEMENTATION HOWEVER WE'LL KEEP AN EYE,POSSIBLY REPEAT AT a later STAGE. I will will replace magnesium, and increase the potassium supplementation to 40 mg 3 times a day, perhaps to qid if potassium is low tomorrow.
[2019-10-19] MEDS: Metolazone 2.5 MG Tab PO SCH (09:05)
[2019-10-19] MEDS: Ferrous Sulfate 325 MG Tab PO SCH (09:08)
[2019-10-19] MEDS: glipiZIDE 5 MG Tab.ER PO SCH (09:09)
[2019-10-19] MEDS: Potassium Chloride 20 MEQ Tab.ER PO SCH ×3 (09:10→20:04)
[2019-10-19] MEDS: Enoxaparin 40 MG/0.4 ML Syringe SUBCUT SCH ×2 (09:10→20:04)
[2019-10-19] MEDS: Magnesium Oxide 400 MG Tab PO SCH ×3 (09:10→20:05)
[2019-10-19] MEDS: Multivitamin Tab PO SCH (09:10)
[2019-10-19] MEDS: Allopurinol 300 MG Tab PO SCH (09:11)
[2019-10-19] MEDS: Cholecalciferol (Vitamin D3) 25 MCG Tab PO SCH (09:11)
[2019-10-19] MEDS: Furosemide 20 MG Tab PO SCH ×2 (10:17→13:54)
[2019-10-19] MEDS: Acetaminophen 650 MG Tab.ER PO PRN (22:51)
[2019-10-20] MEDS: Pantoprazole 40 MG Tab.CR PO SCH (06:18)
[2019-10-20] MEDS: Ferrous Sulfate 325 MG Tab PO SCH (08:38)
[2019-10-20] MEDS: Furosemide 20 MG Tab PO SCH (08:38)
[2019-10-20] MEDS: Potassium Chloride 20 MEQ Tab.ER PO SCH (08:39)
[2019-10-20] MEDS: Enoxaparin 40 MG/0.4 ML Syringe SUBCUT SCH (08:39)
[2019-10-20] MEDS: glipiZIDE 5 MG Tab.ER PO SCH (08:39)
[2019-10-20] MEDS: Multivitamin Tab PO SCH (08:40)
[2019-10-20] MEDS: Magnesium Oxide 400 MG Tab PO SCH (08:40)
[2019-10-20] MEDS: Cholecalciferol (Vitamin D3) 25 MCG Tab PO SCH (08:41)
[2019-10-20] MEDS: Allopurinol 300 MG Tab PO SCH (08:41)
--- NOTE | 2019-10-20 12:35 | DISCH ---
DISCHARGE DATE: 10/20/2019 REASON FOR VISIT: 1. Nausea and vomiting. 2. Anemia. 3. Shortness of breath. 4. Status post laparoscopic uterine surgery. 5. Obesity. 6. Hypertension. 7. Type 2 diabetes. BRIEF HISTORY: An 79-year-old female who had a laparoscopic surgery in [place] on the and was home for 2 days, but came in because of intractable nausea, vomiting, and weakness. Hemoglobin was 7.6 on admission and magnesium was also found to be low. IV fluids were given initially. Two units of blood was also given during the hospital stay. Hemoglobin came up to 9.1. I did during the hospital stay stop metformin because of nausea and vomiting. She feels ready to go home today. She will go home on her usual prescriptions that she was taking prior to admission. I added magnesium 400 mg t.i.d. She has a followup appointment on Thursday, the 24 of October, with Dr. Duenas. She will continue home health with physical therapy, occupational therapy, and nursing care. I spent more than 35 minutes in the discharge of the patient. /[id number] SABAS/DILCIA
== END 2019-10-20 10:10 | disposition home health service (06) | DRG 812 ==
LOC: FB.ED 07:45 → FB.MS 10:23
PROVIDERS: ADMIT Family Medicine; ATTEND Family Medicine
PROC: 30233N1 Transfusion of Nonautologous Red Blood Cells into Peripheral Vein, Percutaneous Approach (ICD-10-PCS; principal; 2019-10-18)
DX: D64.9 Anemia, unspecified (principal); Z68.42 Body mass index [BMI] 45.0-49.9, adult; R11.2 Nausea with vomiting, unspecified; E66.9 Obesity, unspecified; E11.9 Type 2 diabetes mellitus without complications; I10 Essential (primary) hypertension; Z79.01 Long term (current) use of anticoagulants; E78.5 Hyperlipidemia, unspecified; E86.0 Dehydration; E83.42 Hypomagnesemia; M10.9 Gout, unspecified; R19.7 Diarrhea, unspecified; E87.6 Hypokalemia; Z85.038 Personal history of other malignant neoplasm of large intestine; R19.5 Other fecal abnormalities; Z90.49 Acquired absence of other specified parts of digestive tract; E78.00 Pure hypercholesterolemia, unspecified; E89.89 Other postprocedural endocrine and metabolic complications and disorders; E89.0 Postprocedural hypothyroidism; Z96.653 Presence of artificial knee joint, bilateral; Z96.659 Presence of unspecified artificial knee joint; Z85.42 Personal history of malignant neoplasm of other parts of uterus; Z98.890 Other specified postprocedural states; Z85.3 Personal history of malignant neoplasm of breast; Z90.710 Acquired absence of both cervix and uterus; Z79.84 Long term (current) use of oral hypoglycemic drugs; Z79.899 Other long term (current) drug therapy; Z88.1 Allergy status to other antibiotic agents; Z88.0 Allergy status to penicillin
CPT/HCPCS: 36415; 36430; 71046; 80048; 80053; 81001; 82270; 82962; 83735; 84484; 85025; 86850; 86900; 86901; 86920; 86922; 87086; 93005; 93010; 99284; A9270-GY; C9113; J1650; J1940; J2405; J2550; J2765; J3410; J3475; J7030; J7040; J7050; P9016

== ENCOUNTER 2020-07-29 12:56 | Emergency (ER) | payer MEDICARE, BC ==
[2020-07-29] MEDS ORDERED: LORazepam 0.5 MG Tab PO ONE (12:57)
--- NOTE | 2020-07-29 13:25 | EDM.PDOC ---
ED HPI GENERAL MEDICAL PROBLEM - General Chief Complaint: General Stated Complaint: WEAKNESS Time Seen by Provider: 07/29/20 13:20 Source of Information: Reports: Patient History Limitations: Reports: No Limitations - History of Present Illness INITIAL COMMENTS - FREE TEXT/NARRATIVE: 80-year-old female with Covid 19 infection was admitted to this hospital from 07/20 through 07/25/2020 for severe weakness, hypoxia and dehydration. She improved and was no longer requiring oxygen upon discharge and has reported that she has not really been sleeping well since she has been home. She states that she will go to sleep and then wake up feeling short of breath she is very anxious about this. She states for the past 4 nights she has really not been able to get any rest. She was seen at the walk-in clinic yesterday and was felt to have a urinary tract infection and was placed on antibiotics for this. She denies any fever. She has had no nausea or vomiting. And her diarrhea has cleared up as well. She has been able to get around the house okay and she has had no more weak spells or near syncopal episodes. She currently denies any pain at present. She rates her pain as a 0/10 but she does look quite anxious and tells me "I can't just go through another night like that where I can't sleep". She still reports that she feels weak. Her fever has been resolved since before her discharge from the hospital. She still has a mild cough. There are no other associated signs or symptoms. There are no other modifying factors. Onset: Other (4 nights ago) Duration: Constant Location: Reports: Other (No pain.) Quality: Reports: Other (Not applicable) Improves with: Reports: None Worsens with: Reports: None Context: Reports: Other Associated Symptoms: Reports: Cough, Shortness of Breath, Weakness Treatments BEAUTY ADVISOR: Reports: Other Medication(s) (Bactrim DS) - Related Data Allergies Allergy/AdvReac Type Severity Reaction Status Date / Time cephalexin [From Keflex] Allergy Hives Verified 07/29/20 13:09 oxycodone [From Tylox] Allergy Other Verified 07/29/20 13:09 Home Meds: Home Meds Cholecalciferol (Vitamin D3) [Vitamin D3] 2,000 unit PO DAILY 10/16/19 [History] Multivit-Min/Iron/Folic/Lutein [Centrum Silver Women Tablet] 1 tab PO DAILY 10/16/19 [History] Potassium Chloride [Klor-Con M20] 60 meq PO BID 10/16/19 [History] Propylene Glycol/PEG 400/Pf [Systane 0.3-0.4% Eye Drop] 1 each OP Q4H PRN 10/16/19 [History] Simvastatin 40 mg PO BEDTIME 10/16/19 [History] allopurinoL [Zyloprim] 300 mg PO DAILY 10/16/19 [History] metFORMIN [Glucophage] 500 mg PO BIDMEALS 10/16/19 [History] metOLazone [Metolazone] 2.5 mg PO MOWEFR 10/16/19 [History] polyethylene glycoL 3350 [MiraLAX] 17 gm PO DAILY PRN 10/16/19 [History] Ferrous Sulfate 325 mg PO DAILY 10/17/19 [History] Acetaminophen [Tylenol Arthritis] 650 mg PO BID PRN 07/23/20 [History] Furosemide 80 mg PO DAILY 07/23/20 [History] Acetaminophen [Tylenol Arthritis Pain] 650 mg PO BID tab.er 07/25/20 [Rx] Acetaminophen [Tylenol] 650 mg PO Q4H PRN tablet 07/25/20 [Rx] LORazepam [Ativan] 1 mg PO BEDTIME PRN #4 tab 07/29/20 [Rx] Magnesium Oxide 400 mg PO BID 5 Days #10 tablet 07/29/20 [Rx] Past Medical History Cardiovascular History: Reports: High Cholesterol Genitourinary History: Reports: Urinary Incontinence 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: Musculoskeletal History: Reports: Arthritis, Gout, Other (See Below) Other Musculoskeletal History: Lymphedema Neurological History: Reports: Neuropathy, Diabetic, Neuropathy, Peripheral Endocrine/Metabolic History: Reports: Diabetes, Type II, Hypothyroidism, Obesity/BMI 30+ Hematologic History: Reports: Blood Transfusion(s), Iron Deficiency Oncologic (Cancer) History: Reports: Breast, Colon, Uterine - Infectious Disease History Infectious Disease History: Reports: Chicken Pox, Measles, Mumps - Past Surgical History HEENT Surgical History: Reports: Tonsillectomy Other HEENT Surgeries/Procedures: bilat cataract GI Surgical History: Reports: Colon, Colonoscopy Female Surgical History: Reports: Hysterectomy Other Female Surgeries/Procedures: ovarian cyst Endocrine Surgical History: Reports: Thyroidectomy Musculoskeletal Surgical History: Reports: Knee Replacement Other Musculoskeletal Surgeries/Procedures:: bilat knee replacement Oncologic Surgical History: Reports: Other (See Below) Other Oncologic Surgeries/Procedures: colon resection, bilat mastectomy Social & Family History - Tobacco Use Tobacco Use Status *Q: Unknown Ever Used Tobacco (Nonsmoker) - Caffeine Use Caffeine Use: Reports: Soda - Alcohol Use Alcohol Use History: No - Living Situation & Occupation Living situation: Reports: Occupation: Retired ED ROS GENERAL - Review of Systems Review Of Systems: See Below Constitutional: Reports: Malaise, Weakness, Fatigue HEENT: Reports: No Symptoms Respiratory: Reports: Shortness of Breath, Cough Cardiovascular: Reports: No Symptoms Endocrine: Reports: Fatigue GI/Abdominal: Reports: No Symptoms : Reports: No Symptoms (She is however on Bactrim DS for UTI) Musculoskeletal: Reports: No Symptoms Skin: Reports: No Symptoms Neurological: Reports: No Symptoms Psychiatric: Reports: Anxiety Hematologic/Lymphatic: Reports: No Symptoms Immunologic: Reports: No Symptoms ED EXAM, GENERAL - Physical Exam Exam: See Below Exam Limited By: No Limitations General Appearance: Alert, WD/WN, No Apparent Distress (No respiratory distress. No increased work of breathing.), Anxious Eye Exam: Bilateral Eye: EOMI, Normal Inspection, PERRL Ears: Normal External Exam, Hearing Grossly Normal Ear Exam: Bilateral Ear: Auricle Normal Nose: Normal Inspection, Normal Mucosa, No Blood Throat/Mouth: Normal Inspection, Normal Oropharynx, Normal Voice, No Airway Compromise Head: Atraumatic, Normocephalic Neck: Normal Inspection, Supple, Non-Tender, Full Range of Motion Respiratory/Chest: No Respiratory Distress, No Accessory Muscle Use, Chest Non- Tender, Rhonchi (Scattered rhonchi.) Cardiovascular: Normal Peripheral Pulses, Regular Rate, Rhythm, No Murmur Peripheral Pulses: 2+: Radial (L), Radial (R) GI/Abdominal: Normal Bowel Sounds, Soft, Non-Tender Back Exam: Normal Inspection Extremities: Normal Range of Motion, Normal Capillary Refill, Pedal Edema (Bilateral lower extremity lymphedema) Neurological: Alert, Oriented, CN II-XII Intact, Normal Cognition, No Motor/Sensory Deficits Psychiatric: Anxious Skin Exam: Warm, Dry, Intact, Normal Color, No Rash Course - Vital Signs Last Recorded V/S: Last Vital Signs Temp 36.9 C 07/29/20 13:00 Pulse 105 H 07/29/20 13:00 Resp 17 07/29/20 13:00 BP 120/77 07/29/20 13:00 Pulse Ox 94 L 07/29/20 13:00 - Orders/Labs/Meds Labs: Laboratory Tests 07/29/20 07/29/20 Range/Units 14:00 14:00 WBC 4.1 (3.0-10.3) x10-3/uL RBC 3.49 L (3.60-5.20) x10(6)uL Hgb 12.9 (11.4-15.5) g/dL Hct 34.5 (34.2-48.2) % MCV 98.8 (76.7-100.5) fL MCH 36.9 H (23.9-33.9) pg MCHC 37.4 H (31.9-34.8) g/dL RDW 15.2 (12.3-16.5) % Plt Count 220 (151-488) x10(3)uL MPV 10.0 (7.1-12.4) fL Neut % (Auto) 71.8 (30.8-76.2) % Lymph % (Auto) 12.1 L (18.4-52.1) % [place] % (Auto) 9.6 (4.4-15.7) % Eos % (Auto) 5.6 (0.6-8.1) % Baso % (Auto) 0.9 (0.2-1.5) % Neut # (Auto) 2.9 (1.5-6.3) x10-3/uL Lymph # (Auto) 0.5 L (1.0-4.4) x10-3/uL [place] # (Auto) 0.4 (0.3-1.0) x10-3/uL Eos # (Auto) 0.2 (0.0-0.8) x10-3/uL Baso # (Auto) 0.0 (0.0-0.1) x10-3/uL Sodium 141 (135-145) mmol/L Potassium 3.9 (3.5-5.3) mmol/L Chloride 102 (100-110) mmol/L Carbon Dioxide 28 (21-32) mmol/L BUN 13 (7-18) mg/dL Creatinine 1.0 (0.55-1.02) mg/dL Est Cr Clr Drug Dosing TNP Estimated GFR (MDRD) 53 L (>60) BUN/Creatinine Ratio 13.0 (9-20) Glucose 116 (80-116) mg/dL Calcium 9.0 (8.6-10.2) mg/dL Magnesium 1.4 L (1.8-2.5) mg/dL Total Bilirubin 0.8 (0.1-1.3) mg/dL AST 26 H D (5-25) IU/L ALT 31 (12-36) U/L Alkaline Phosphatase 86 (56-112) IU/L Total Protein 7.3 (6.0-8.0) g/dL Albumin 2.9 L (3.2-4.6) g/dL Globulin 4.4 g/dL Albumin/Globulin Ratio 0.7 Meds: Medications Discontinued Medications Generic Name Dose Route Start Last Admin Trade Name Freq PRN Reason Stop Dose Admin Lorazepam 0.5 mg 07/29/20 13:38 07/29/20 13:52 Ativan PO 07/29/20 13:39 0.5 mg ONETIME ONE Administration Lorazepam 0.5 mg 07/29/20 14:48 07/29/20 14:57 Ativan PO 07/29/20 14:49 0.5 mg ONETIME ONE Administration Magnesium Oxide 800 mg 07/29/20 14:43 07/29/20 14:58 Magnesium Oxide PO 07/29/20 14:44 800 mg ONETIME ONE Administration - Re-Assessments/Exams Free Text/Narrative Re-Assessment/Exam: 07/29/20 15:15: The patient has been able to sleep some. She has remained vitally stable with normal O2 saturations. Her magnesium was a little low and I have given her additional magnesium here in the emergency department. The remainder of her lab tests were reassuringly normal. I will plan on discharging the patient with Ativan 1 mg to be taken on an as-needed basis for sleep and I am also going to place her on magnesium oxide 400 mg twice daily for the next 5 days. She is to continue self cares and symptomatic treatment at home. Departure - Departure Time of Disposition: 15:30 Disposition: Home, Self-Care 01 Condition: Good (Stable) Clinical Impression: Anxiety, Hypomagnesemia, COVID-19 virus infection Insomnia Qualifiers: Insomnia type: adjustment Qualified Code(s): F51.02 - Adjustment insomnia - Discharge Information Prescriptions: LORazepam [Ativan] 1 mg PO BEDTIME PRN #4 tab PRN Reason: insomonia Magnesium Oxide 400 mg PO BID 5 Days #10 tablet Instructions: Lorazepam tablets, Hypomagnesemia, Insomnia Referrals: PCP,None [Primary Care Provider] - Forms: ED Department Discharge Additional Instructions: Your exam was reassuring. Your O2 saturations remained greater than 93-94% throughout your emergency department stay. Your blood tests were all reassuring except for a mildly low magnesium level. I am going to give you a prescription for magnesium to take for the next 5 days to replace this. I am also going to give you a prescription for Ativan that you can take on an as-needed basis for sleep at night. Continue to drink plenty of fluids. Continue to get rest. Continue to self quarantine. Back to the emergency department for unrelenting vomiting, severe weakness or any other concerning sign or symptom. Sepsis Event Note (ED) - Evaluation Sepsis Screening Result: No Definite Risk - Focused Exam Vital Signs: Vital Signs Temp Pulse Resp BP Pulse Ox 07/29/20 13:00 36.9 C 105 H 17 120/77 94 L
[2020-07-29] MEDS: LORazepam 0.5 MG Tab PO ONE ×2 (13:52→14:57)
[2020-07-29] MEDS: Magnesium Oxide 400 MG Tab PO ONE (14:58)
== END 2020-07-29 16:00 | disposition home or self-care (01) ==
LOC: FB.ED 12:56
DX: U07.1 COVID-19 (principal); F51.02 Adjustment insomnia; F41.9 Anxiety disorder, unspecified; E83.42 Hypomagnesemia; E78.00 Pure hypercholesterolemia, unspecified; M10.9 Gout, unspecified; E11.42 Type 2 diabetes mellitus with diabetic polyneuropathy; E03.9 Hypothyroidism, unspecified; E66.9 Obesity, unspecified; Z68.42 Body mass index [BMI] 45.0-49.9, adult; Z88.1 Allergy status to other antibiotic agents; Z88.5 Allergy status to narcotic agent; Z79.899 Other long term (current) drug therapy; Z79.84 Long term (current) use of oral hypoglycemic drugs
CPT/HCPCS: 36415; 80053; 83735; 85025; 99284; A9270

== ENCOUNTER 2020-12-19 20:08 | Emergency (ER) | payer MEDICARE, BC ==
[2020-12-19] MEDS ORDERED: Acetaminophen/HYDROcodone 325-5 MG Tab PO ONE (20:09)
[2020-12-19] MEDS ORDERED: HYDROmorphone 2 MG/ML SDV IM ONE (20:49)
[2020-12-19] MEDS ORDERED: hydrOXYzine HCl 50 MG/ML SDV IM ONE (20:50)
--- NOTE | 2020-12-19 20:58 | EDM.PDOC ---
ED HPI GENERAL MEDICAL PROBLEM - General Chief Complaint: Back Pain or Injury Time Seen by Provider: 12/19/20 20:55 Source of Information: Reports: Patient History Limitations: Reports: No Limitations - History of Present Illness INITIAL COMMENTS - FREE TEXT/NARRATIVE: 80 yo female with acute back pain for 2 weeks. I saw her in the clinic setting and ordered an ambulatory CT lumbar spine. According to Radiology,it shows degenerative changes. Her pain is not controlled by Celebrex. It is associated with leg pain. Lower Back Pain Score (Numeric/FACES): 10 - Related Data Allergies Allergy/AdvReac Type Severity Reaction Status Date / Time cephalexin [From Keflex] Allergy Hives Verified 12/20/20 10:02 oxycodone [From Tylox] Allergy Shortness Verified 12/20/20 10:02 of Breath Home Meds: Home Meds Cholecalciferol (Vitamin D3) [Vitamin D3] 2,000 unit PO DAILY 10/16/19 [History] Multivit-Min/Iron/Folic/Lutein [Centrum Silver Women Tablet] 1 tab PO DAILY 10/16/19 [History] Potassium Chloride [Klor-Con M20] 60 meq PO TID 10/16/19 [History] Propylene Glycol/PEG 400/Pf [Systane 0.3-0.4% Eye Drop] 1 each OP Q4H PRN 10/16/19 [History] Simvastatin 40 mg PO DAILY 10/16/19 [History] allopurinoL [Zyloprim] 300 mg PO DAILY 10/16/19 [History] metFORMIN [Glucophage] 500 mg PO BIDMEALS 10/16/19 [History] metOLazone [Metolazone] 2.5 mg PO MOWEFR 10/16/19 [History] polyethylene glycoL 3350 [MiraLAX] 17 gm PO DAILY PRN 10/16/19 [History] Ferrous Sulfate 325 mg PO DAILY 10/17/19 [History] Acetaminophen [Tylenol Arthritis] 650 mg PO BID PRN 07/23/20 [History] Furosemide 80 mg PO DAILY 07/23/20 [History] Acetaminophen [Tylenol Arthritis Pain] 650 mg PO BID tab.er 07/25/20 [Rx] LORazepam [Ativan] 1 mg PO BEDTIME PRN #4 tab 07/29/20 [Rx] Magnesium Oxide 400 mg PO BID 5 Days #10 tablet 07/29/20 [Rx] Acetaminophen [Tylenol] 650 mg PO Q8HR PRN 12/20/20 [History] Amoxicillin 500 mg PO ASDIRECTED 12/20/20 [History] Aspirin [Halfprin] 81 mg PO BEDTIME 12/20/20 [History] Celecoxib [CeleBREX] 200 mg PO BID 12/20/20 [History] Cholecalciferol (Vitamin D3) [Vitamin D3] 2,000 unit PO DAILY 12/20/20 [History] Nystatin [Nystatin Crm] 1 applic TOP TID 12/20/20 [History] metFORMIN [Glucophage] 500 mg PO BID 12/20/20 [History] Past Medical History Cardiovascular History: Reports: High Cholesterol Genitourinary History: Reports: Urinary Incontinence 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 Neurological History: Reports: Neuropathy, Diabetic, Neuropathy, Peripheral Endocrine/Metabolic History: Reports: Diabetes, Type II, Hypothyroidism, Obesity/BMI 30+ Hematologic History: Reports: Blood Transfusion(s), Iron Deficiency Oncologic (Cancer) History: Reports: Breast, Colon, Uterine - Infectious Disease History Infectious Disease History: Reports: Chicken Pox, Measles, Mumps, Shingles - Past Surgical History HEENT Surgical History: Reports: Tonsillectomy Other HEENT Surgeries/Procedures: bilat cataract GI Surgical History: Reports: Colon, Colonoscopy Female Surgical History: Reports: Hysterectomy Other Female Surgeries/Procedures: ovarian cyst Endocrine Surgical History: Reports: Thyroidectomy Musculoskeletal Surgical History: Reports: Knee Replacement Other Musculoskeletal Surgeries/Procedures:: bilat knee replacement Oncologic Surgical History: Reports: Other (See Below) Other Oncologic Surgeries/Procedures: colon resection, bilat mastectomy Social & Family History - Family History Family Medical History: No Pertinent Family History - Tobacco Use Tobacco Use Status *Q: Unknown Ever Used Tobacco - Caffeine Use Caffeine Use: Reports: Coffee, Soda - Recreational Drug Use Recreational Drug Use: No - Living Situation & Occupation Living situation: Reports: Occupation: Retired ED ROS GENERAL - Review of Systems Review Of Systems: Comprehensive ROS is negative, except as noted in HPI. ED EXAM,LOWER BACK PAIN/INJURY - Physical Exam Exam: See Below Exam Limited By: No Limitations General Appearance: Alert, WD/WN Respiratory/Chest: No Respiratory Distress Extremities: Normal Inspection Neurological: Alert Course - Vital Signs Last Recorded V/S: Last Vital Signs Temp 98.2 F 12/19/20 20:19 Pulse 72 12/19/20 20:19 Resp 16 12/19/20 20:19 BP 153/70 H 12/19/20 20:19 Pulse Ox 99 12/19/20 20:19 - Orders/Labs/Meds Meds: Medications Discontinued Medications Generic Name Dose Route Start Last Admin Trade Name Izzy PRN Reason Stop Dose Admin Hydromorphone HCl 1 mg 12/19/20 20:49 12/19/20 20:57 Hydromorphone 2 Mg/Ml Sdv IM 12/19/20 20:50 1 mg ONETIME ONE Administration Hydroxyzine HCl 50 mg 12/19/20 20:50 12/19/20 20:56 Hydroxyzine Hcl 50 Mg/Ml Sdv IM 12/19/20 20:51 50 mg ONETIME ONE Administration Departure - Departure Time of Disposition: 11:07 Disposition: Home, Self-Care 01 Condition: Good Clinical Impression: Acute low back pain Qualifiers: Back pain laterality: right Sciatica presence: without sciatica Qualified Code(s): M54.5 - Low back pain - Discharge Information Instructions: Acute Back Pain, Adult Referrals: Lg Duenas MD [Primary Care Provider] - Forms: ED Department Discharge Additional Instructions: Read instructions on Acute Back Pain. Continue with physical therapy. See primary care provider as needed if pain continues or worsens. Call clinic for more pain medications if needed. Sepsis Event Note (ED) - Evaluation Sepsis Screening Result: No Definite Risk - Problem List & Annotations (1) Acute low back pain SNOMED Code(s): 391099310 Code(s): M54.5 - LOW BACK PAIN Status: Acute Qualifiers: Back pain laterality: right Sciatica presence: without sciatica Qualified Code(s): M54.5 - Low back pain - Problem List Review Problem List Initiated/Reviewed/Updated: Yes - Assessment/Plan Plan: Dilaudid 1 mg IM and Vistaril 50 mg IM. Take Home [place] for pain. Outpatient PT
== END 2020-12-19 22:13 | disposition home or self-care (01) ==
LOC: FB.ED 20:08
DX: M54.5 Low back pain (principal); E78.00 Pure hypercholesterolemia, unspecified; E11.40 Type 2 diabetes mellitus with diabetic neuropathy, unspecified; E03.9 Hypothyroidism, unspecified; E66.9 Obesity, unspecified; Z79.82 Long term (current) use of aspirin; Z79.84 Long term (current) use of oral hypoglycemic drugs; Z68.42 Body mass index [BMI] 45.0-49.9, adult
CPT/HCPCS: 96372; 99283; A9270; J1170; J3410

== ENCOUNTER 2020-12-20 09:55 | Observation (INO) | payer MEDICARE, BC ==
[2020-12-20] MEDS ORDERED: Cyclobenzaprine 10 MG Tab PO STA (10:14)
[2020-12-20] MEDS ORDERED: predniSONE 20 MG Tab PO STA (11:36)
[2020-12-20] MEDS ORDERED: traMADol 50 MG Tab PO STA (11:36)
[2020-12-20] MEDS ORDERED: HYDROmorphone 2 MG/ML SDV IVPUSH ONE (12:37)
--- NOTE | 2020-12-20 13:52 | EDM.PDOC ---
ED HPI GENERAL MEDICAL PROBLEM - General Chief Complaint: Back Pain or Injury Stated Complaint: BACK PAIN Time Seen by Provider: 12/20/20 10:10 Source of Information: Reports: Patient History Limitations: Reports: No Limitations - History of Present Illness INITIAL COMMENTS - FREE TEXT/NARRATIVE: Patient presented to the ED from [facility] due to severe low back pain. The pain started 2 weeks ago and is progressively getting worse. The pain is sharp,10/10 at worse, radiating to the RLE. She fell on her buttock while she was having an US on December 10.. There is no associated fever, chills, bowel incontinence but has urine incontinence which is old. She was seen at [facility] per Dr Yost and started on Celebrex which didn't help. Yesterday she was seen in the ED and was given 1 mg of Dilaudid I.M and was discharged back to [facility] with percocet. She took the percocet last nigh and this morning but pain didn't improve and can't walk or move because of the pain. Lower Back Pain Score (Numeric/FACES): 5 - Related Data Allergies Allergy/AdvReac Type Severity Reaction Status Date / Time cephalexin [From Keflex] Allergy Hives Verified 12/20/20 10:02 oxycodone [From Tylox] Allergy Shortness Verified 12/20/20 10:02 of Breath Home Meds: Home Meds Multivit-Min/Iron/Folic/Lutein [Centrum Silver Women Tablet] 1 tab PO DAILY 10/16/19 [History] Potassium Chloride [Klor-Con M20] 60 meq PO BID 10/16/19 [History] Simvastatin 40 mg PO BEDTIME 10/16/19 [History] allopurinoL [Zyloprim] 300 mg PO DAILY 10/16/19 [History] metOLazone [Metolazone] 2.5 mg PO MOWEFR 10/16/19 [History] polyethylene glycoL 3350 [MiraLAX] 17 gm PO DAILY PRN 10/16/19 [History] Ferrous Sulfate 325 mg PO DAILY 10/17/19 [History] Furosemide 80 mg PO DAILY 07/23/20 [History] Acetaminophen [Tylenol Arthritis] 1,300 mg PO Q8H PRN 12/20/20 [History] Amoxicillin 1,000 mg PO ASDIRECTED PRN 12/20/20 [History] Aspirin [Halfprin] 81 mg PO BEDTIME 12/20/20 [History] Celecoxib [CeleBREX] 200 mg PO BID 12/20/20 [History] Cholecalciferol (Vitamin D3) [Vitamin D3] 2,000 unit PO DAILY 12/20/20 [History] Nystatin [Nystatin Crm] 1 applic TOP TID PRN 12/20/20 [History] PEG 400/Propylene Glycol [Systane Lubricant] 1 drop EYEBOTH Q4H PRN 12/20/20 [History] metFORMIN [Glucophage] 500 mg PO BIDMEALS 12/20/20 [History] Past Medical History Cardiovascular History: Reports: High Cholesterol Genitourinary History: Reports: Urinary Incontinence 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 Neurological History: Reports: Neuropathy, Diabetic, Neuropathy, Peripheral Endocrine/Metabolic History: Reports: Diabetes, Type II, Hypothyroidism, Obesity/BMI 30+ Hematologic History: Reports: Blood Transfusion(s), Iron Deficiency Oncologic (Cancer) History: Reports: Breast, Colon, Uterine - Infectious Disease History Infectious Disease History: Reports: Chicken Pox, Measles, Mumps, Shingles - Past Surgical History HEENT Surgical History: Reports: Tonsillectomy Other HEENT Surgeries/Procedures: bilat cataract GI Surgical History: Reports: Colon, Colonoscopy Female Surgical History: Reports: Hysterectomy Other Female Surgeries/Procedures: ovarian cyst Endocrine Surgical History: Reports: Thyroidectomy Musculoskeletal Surgical History: Reports: Knee Replacement Other Musculoskeletal Surgeries/Procedures:: bilat knee replacement Oncologic Surgical History: Reports: Other (See Below) Other Oncologic Surgeries/Procedures: colon resection, bilat mastectomy Social & Family History - Family History Family Medical History: No Pertinent Family History - Tobacco Use Tobacco Use Status *Q: Never Tobacco User Second Hand Smoke Exposure: No - Caffeine Use Caffeine Use: Reports: Coffee, Soda Caffeine Use Comment: 2 cups of each per day - Recreational Drug Use Recreational Drug Use: No - Living Situation & Occupation Living situation: Reports: Occupation: Retired ED ROS GENERAL - Review of Systems Review Of Systems: See Below Constitutional: Reports: No Symptoms HEENT: Reports: No Symptoms Respiratory: Reports: No Symptoms Cardiovascular: Reports: No Symptoms Endocrine: Reports: No Symptoms GI/Abdominal: Reports: No Symptoms : Reports: No Symptoms Musculoskeletal: Reports: Back Pain, Muscle Stiffness Skin: Reports: No Symptoms Neurological: Reports: No Symptoms Psychiatric: Reports: No Symptoms ED EXAM,LOWER BACK PAIN/INJURY - Physical Exam Exam: See Below Exam Limited By: No Limitations General Appearance: Alert, No Apparent Distress Eye Exam: Bilateral Eye: PERRL Ears: Normal External Exam, Normal Canal Nose: Normal Inspection, Normal Mucosa, No Blood Throat/Mouth: Normal Inspection, Normal Lips, Normal Teeth Head: Atraumatic, Normocephalic Neck: Normal Inspection, Supple, Non-Tender, Full Range of Motion Respiratory/Chest: No Respiratory Distress, Lungs Clear, Normal Breath Sounds Cardiovascular: Normal Peripheral Pulses, Regular Rate, Rhythm, No Edema, No Gallop GI/Abdominal: Normal Bowel Sounds, Soft, Non-Tender, No Organomegaly Back Exam: Normal Inspection, Decreased Range of Motion, Muscle Spasm, Vertebral Tenderness Course - Vital Signs Text/Narrative:: Labs-see result Toradol 30 mg IM x1 Flexeril 10 mg PO x1 Prednisone 20 mg PO x1 Tramadol 100 mg PO x1 Dilaudid 1 mg IV x1 Neurosurgery consult was done with Dr Arceo who recommended conservative management for now. Code Status: Full Code Covid Test-Neg Last Recorded V/S: Last Vital Signs Temp 36.8 C 12/20/20 15:27 Pulse 72 12/20/20 15:27 Resp 16 12/20/20 15:27 BP 131/67 12/20/20 15:27 Pulse Ox 93 L 12/20/20 15:30 - Orders/Labs/Meds Orders: Medication Orders Acetaminophen (Acetaminophen 650 Mg Tab.Er) 650 mg PO Q8H [facility] Last Admin: 12/20/20 17:20 Dose: 650 mg Documented by: AISHA Hydrocodone Bitart/Acetaminophen (Acetaminophen/Hydrocodone 325-5 Mg Tab) 1 tab PO Q6H PRN PRN Reason: SEVERE PAIN Allopurinol (Allopurinol 300 Mg Tab *Ptom) 300 mg PO DAILY [facility] Aspirin (Aspirin 81 Mg Tab.Ec *Ptom) 81 mg PO BEDTIME [facility] Dextrose/Water (50% Dextrose In Water 50 Ml Syringe) 50 ml IVPUSH ASDIRECTED PRN PRN Reason: Hypoglycemia Enoxaparin Sodium (Enoxaparin 40 Mg/0.4 Ml Syringe) 40 mg SUBCUT Q24H [facility] Last Admin: 12/20/20 17:32 Dose: 40 mg Documented by: AISHA Ferrous Sulfate (Ferrous Sulfate 325 Mg Tab *Ptom) 325 mg PO DAILY [facility] Furosemide (Furosemide 80 Mg Tab *Ptom) 80 mg PO DAILY [facility] Glucagon (Glucagon,Human Recombinant 1 Mg Vial) 1 mg IM ASDIRECTED PRN PRN Reason: Hypoglycemia Promethazine HCl 12.5 mg/ (Sodium Chloride) 50.5 mls @ 200 mls/hr IV Q6H PRN PRN Reason: Nausea/Vomiting Ketorolac Tromethamine (Ketorolac 15 Mg/Ml Sdv) 15 mg IVPUSH Q6H [facility] Last Admin: 12/20/20 17:21 Dose: 15 mg Documented by: AISHA Metformin HCl (Metformin 500 Mg Tab *Ptom) 500 mg PO BIDMEALS [facility] Last Admin: 12/20/20 17:36 Dose: 500 mg Documented by: AISHA Metolazone (Metolazone 2.5 Mg Tab) 2.5 mg PO MOWEFR [facility] Morphine Sulfate (Morphine 2 Mg/Ml Syringe) 2 mg IVPUSH Q2H PRN PRN Reason: Pain (severe 7-10) Multivitamins/Minerals/Vitamin C (Multivitamin Tab *Ptom) 1 tab PO DAILY [facility] (Cholecalciferol ( Vitamin D3) [Vitamin D3] 2,000 Unit Cap) *Ptom 2,000 unit PO DAILY [facility] Ondansetron HCl (Ondansetron 4 Mg Tab.Dis) 4 mg PO Q6H PRN PRN Reason: nausea, able to take PO Potassium Chloride (Potassium Chloride 20 Meq Tab.Er *Ptom) 60 meq PO BID [facility] Senna/Docusate Sodium (Docusate Sodium/Sennosides 50-8.6 Mg Tab) 1 tab PO BID [facility] Simvastatin (Simvastatin 40 Mg Tab *Ptom) 40 mg PO BEDTIME [facility] Sodium Chloride (Sodium Chloride 0.9% 10 Ml Syringe) 10 ml FLUSH ASDIRECTED PRN PRN Reason: saline lock flush as needed Last Admin: 12/20/20 17:23 Dose: 10 ml Documented by: AISHA Labs: Laboratory Tests 12/20/20 12/20/20 12/20/20 Range/Units 13:30 14:00 14:00 WBC 7.1 (3.0-10.3) x10-3/uL RBC 3.10 L (3.60-5.20) x10(6)uL Hgb 11.3 L (11.4-15.5) g/dL Hct 31.1 L (34.2-48.2) % MCV 100.6 H (76.7-100.5) fL MCH 36.4 H (23.9-33.9) pg MCHC 36.2 H (31.9-34.8) g/dL RDW 14.5 (12.3-16.5) % Plt Count 228 (151-488) x10(3)uL MPV 9.5 (7.1-12.4) fL Neut % (Auto) 79.0 H (30.8-76.2) % Lymph % (Auto) 11.1 L (18.4-52.1) % [place] % (Auto) 5.5 (4.4-15.7) % Eos % (Auto) 3.7 (0.6-8.1) % Baso % (Auto) 0.7 (0.2-1.5) % Neut # (Auto) 5.6 (1.5-6.3) x10-3/uL Lymph # (Auto) 0.8 L (1.0-4.4) x10-3/uL [place] # (Auto) 0.4 (0.3-1.0) x10-3/uL Eos # (Auto) 0.3 (0.0-0.8) x10-3/uL Baso # (Auto) 0.1 (0.0-0.1) x10-3/uL Sodium 143 (135-145) mmol/L Potassium 3.8 (3.5-5.3) mmol/L Chloride 104 (100-110) mmol/L Carbon Dioxide 32 (21-32) mmol/L BUN 21 H (7-18) mg/dL Creatinine 0.8 (0.55-1.02) mg/dL Est Cr Clr Drug Dosing 51.63 mL/min Estimated GFR (MDRD) > 60 (>60) BUN/Creatinine Ratio 26.3 H (9-20) Glucose 106 (80-116) mg/dL Calcium 9.3 (8.6-10.2) mg/dL Total Bilirubin 0.4 (0.1-1.3) mg/dL AST 26 H (5-25) IU/L ALT 20 D (12-36) U/L Alkaline Phosphatase 114 H (56-112) IU/L Total Protein 7.3 (6.0-8.0) g/dL Albumin 3.2 (3.2-4.6) g/dL Globulin 4.1 g/dL Albumin/Globulin Ratio 0.8 Urine Color (YELLOW) Urine Appearance (CLEAR) Urine pH (5.0-6.5) Ur Specific [place] (1.010-1.025) Urine Protein (NEGATIVE) mg/dL Urine Glucose (UA) (NORMAL) mg/dL Urine Ketones (NEGATIVE) mg/dL Urine Occult Blood (NEGATIVE) Urine Nitrite (NEGATIVE) Urine Bilirubin (NEGATIVE) Urine Urobilinogen (NEGATIVE) mg/dL Ur Leukocyte Esterase (NEGATIVE) Urine RBC (0-5) Urine WBC (0-5) Ur Squamous Epith Cells (NS,R,O) Urine Bacteria (NS) SARS-CoV-2 RNA (LAXMI) Negative (NEGATIVE) 12/20/20 Range/Units 14:10 WBC (3.0-10.3) x10-3/uL RBC (3.60-5.20) x10(6)uL Hgb (11.4-15.5) g/dL Hct (34.2-48.2) % MCV (76.7-100.5) fL MCH (23.9-33.9) pg MCHC (31.9-34.8) g/dL RDW (12.3-16.5) % Plt Count (151-488) x10(3)uL MPV (7.1-12.4) fL Neut % (Auto) (30.8-76.2) % Lymph % (Auto) (18.4-52.1) % [place] % (Auto) (4.4-15.7) % Eos % (Auto) (0.6-8.1) % Baso % (Auto) (0.2-1.5) % Neut # (Auto) (1.5-6.3) x10-3/uL Lymph # (Auto) (1.0-4.4) x10-3/uL [place] # (Auto) (0.3-1.0) x10-3/uL Eos # (Auto) (0.0-0.8) x10-3/uL Baso # (Auto) (0.0-0.1) x10-3/uL Sodium (135-145) mmol/L Potassium (3.5-5.3) mmol/L Chloride (100-110) mmol/L Carbon Dioxide (21-32) mmol/L BUN (7-18) mg/dL Creatinine (0.55-1.02) mg/dL Est Cr Clr Drug Dosing mL/min Estimated GFR (MDRD) (>60) BUN/Creatinine Ratio (9-20) Glucose (80-116) mg/dL Calcium (8.6-10.2) mg/dL Total Bilirubin (0.1-1.3) mg/dL AST (5-25) IU/L ALT (12-36) U/L Alkaline Phosphatase (56-112) IU/L Total Protein (6.0-8.0) g/dL Albumin (3.2-4.6) g/dL Globulin g/dL Albumin/Globulin Ratio Urine Color Yellow (YELLOW) Urine Appearance Clear (CLEAR) Urine pH 6.5 (5.0-6.5) Ur Specific [place] 1.010 (1.010-1.025) Urine Protein Negative (NEGATIVE) mg/dL Urine Glucose (UA) Normal (NORMAL) mg/dL Urine Ketones Negative (NEGATIVE) mg/dL Urine Occult Blood Negative (NEGATIVE) Urine Nitrite Negative (NEGATIVE) Urine Bilirubin Negative (NEGATIVE) Urine Urobilinogen Normal (NEGATIVE) mg/dL Ur Leukocyte Esterase Negative (NEGATIVE) Urine RBC Not seen (0-5) Urine WBC 0-5 (0-5) Ur Squamous Epith Cells Rare (NS,R,O) Urine Bacteria Rare H (NS) SARS-CoV-2 RNA (LAXMI) (NEGATIVE) Meds: Medications Generic Name Dose Route Start Last Admin Trade Name Freq PRN Reason Stop Dose Admin Acetaminophen 650 mg 12/20/20 16:00 12/20/20 17:20 Acetaminophen 650 Mg Tab.Er PO 650 mg Q8H [facility] Administration Hydrocodone Bitart/Acetaminophen 1 tab 12/20/20 16:15 Acetaminophen/Hydrocodone 325-5 Mg Tab PO Q6H PRN SEVERE PAIN Allopurinol 300 mg 12/21/20 09:00 Allopurinol 300 Mg Tab *Ptom PO DAILY [facility] Aspirin 81 mg 12/20/20 21:00 Aspirin 81 Mg Tab.Ec *Ptom PO BEDTIME [facility] Dextrose/Water 50 ml 12/20/20 15:38 50% Dextrose In Water 50 Ml Syringe IVPUSH ASDIRECTED PRN Hypoglycemia Enoxaparin Sodium 40 mg 12/20/20 18:00 12/20/20 17:32 Enoxaparin 40 Mg/0.4 Ml Syringe SUBCUT 40 mg Q24H [facility] Administration Ferrous Sulfate 325 mg 12/21/20 09:00 Ferrous Sulfate 325 Mg Tab *Ptom PO DAILY [facility] Furosemide 80 mg 12/21/20 09:00 Furosemide 80 Mg Tab *Ptom PO DAILY [facility] Glucagon 1 mg 12/20/20 15:38 Glucagon,Human Recombinant 1 Mg Vial IM ASDIRECTED PRN Hypoglycemia Promethazine HCl 12.5 mg/ 50.5 mls @ 200 mls/hr 12/20/20 15:30 Sodium Chloride IV Q6H PRN Nausea/Vomiting Ketorolac Tromethamine 15 mg 12/20/20 17:00 12/20/20 17:21 Ketorolac 15 Mg/Ml Sdv IVPUSH 15 mg Q6H [facility] Administration Metformin HCl 500 mg 12/20/20 18:00 12/20/20 17:36 Metformin 500 Mg Tab *Ptom PO 500 mg BIDMEALS [facility] Administration Metolazone 2.5 mg 12/21/20 08:00 Metolazone 2.5 Mg Tab PO MOWEFR [facility] Morphine Sulfate 2 mg 12/20/20 15:36 Morphine 2 Mg/Ml Syringe IVPUSH Q2H PRN Pain (severe 7-10) Multivitamins/Minerals/Vitamin C 1 tab 12/21/20 09:00 Multivitamin Tab *Ptom PO DAILY [facility] (Cholecalciferol ( 2,000 unit 12/21/20 09:00 Vitamin D3) [Vitamin PO D3] 2,000 Unit Cap) DAILY [facility] *Ptom Ondansetron HCl 4 mg 12/20/20 15:30 Ondansetron 4 Mg Tab.Dis PO Q6H PRN nausea, able to take PO Potassium Chloride 60 meq 12/20/20 21:00 Potassium Chloride 20 Meq Tab.Er *Ptom PO BID [facility] Senna/Docusate Sodium 1 tab 12/20/20 21:00 Docusate Sodium/Sennosides 50-8.6 Mg Tab PO BID [facility] Simvastatin 40 mg 12/20/20 21:00 Simvastatin 40 Mg Tab *Ptom PO BEDTIME [facility] Sodium Chloride 10 ml 12/20/20 17:13 12/20/20 17:23 Sodium Chloride 0.9% 10 Ml Syringe FLUSH 10 ml ASDIRECTED PRN Administration saline lock flush as needed Discontinued Medications Generic Name Dose Route Start Last Admin Trade Name Freq PRN Reason Stop Dose Admin Cyclobenzaprine HCl 10 mg 12/20/20 10:14 12/20/20 10:21 Cyclobenzaprine 10 Mg Tab PO 12/20/20 10:15 10 mg NOW STA Administration Hydromorphone HCl 1 mg 12/20/20 12:37 12/20/20 13:00 Hydromorphone 2 Mg/Ml Sdv IVPUSH 12/20/20 12:38 1 mg ONETIME ONE Administration Ketorolac Tromethamine 15 mg 12/20/20 16:20 Ketorolac 15 Mg/Ml Sdv IVPUSH Q6H PRN Pain (moderate 4-6) Prednisone 20 mg 12/20/20 11:36 12/20/20 11:40 Prednisone 20 Mg Tab PO 12/20/20 11:37 20 mg NOW STA Administration Tramadol HCl 100 mg 12/20/20 11:36 12/20/20 11:40 Tramadol 50 Mg Tab PO 12/20/20 11:37 100 mg NOW STA Administration Departure - Departure Time of Disposition: 13:00 Disposition: Refer to Observation Condition: Good Clinical Impression: Low back pain, Spinal stenosis, DDD (degenerative disc disease), Bulging disc - Discharge Information Sepsis Event Note (ED) - Evaluation Sepsis Screening Result: No Definite Risk - Focused Exam Vital Signs: Vital Signs Temp Pulse Pulse Resp BP Pulse Ox 12/20/20 14:30 36.6 C 66 93 18 134/66 12/20/20 10:00 36.9 C 70 18 149/70 H 95
[2020-12-20] MEDS ORDERED: Ondansetron 4 MG Tab.DIS PO PRN (15:30)
[2020-12-20] MEDS ORDERED: Promethazine 12.5 MG in Sodium Chloride 0.9% 50 ML IV PRN (15:30)
[2020-12-20] MEDS ORDERED: Morphine 2 MG/ML SYRINGE IVPUSH PRN (15:36)
[2020-12-20] MEDS ORDERED: oxyCODONE 5 MG Tab PO PRN (15:36)
[2020-12-20] MEDS ORDERED: 50% Dextrose in Water 50 ML Syringe IVPUSH PRN (15:38)
[2020-12-20] MEDS ORDERED: Glucagon,Human Recombinant 1 MG Vial IM PRN (15:38)
[2020-12-20] MEDS ORDERED: Acetaminophen/HYDROcodone 325-5 MG Tab PO PRN (16:15)
[2020-12-20] MEDS ORDERED: Ketorolac 15 MG/ML SDV IVPUSH PRN (16:20)
--- NOTE | 2020-12-20 16:28 | PCM.HP.2 ---
H&P History of Present Illness - General Date of Service: 12/20/20 Admit Problem/Dx: Admission Diagnosis/Problem Admission Diagnosis/Problem Low back pain Source of Information: Patient, Provider - History of Present Illness Initial Comments - Free Text/Narative: Tali presented to ER yesterday for worsening low back pain, had CT lumbar spine showed degenerative disk disease, herniated bulging disk at L5-S1, moderate spinal stenosis. She was given Dilaudid 1 mg x 1 and Hydroxyzine 50 mg x 1 and sent home with Hydrocodone-APAP as needed for pain. She fell after getting ultrasound on 12/10, had been changing back into her street clothes, states not sure if she slipped on something or what happened, landing on her buttocks. [facility] called for assistance to get her back up, she was not evalua mariama in ER at the time. She states the pain got worse a week after the fall which was , started Celebrex 200 mg bid by her primary doctor. She presented again to ER today for intractable back pain, has not taken her medications this morning. She did not take Celebrex last night or this morning. In ER received Cyclobenzaprine 10 mg x 1, Tramadol 100 mg x 1, Prednisone 40 mg x 1, pain still severe then received Dilaudid 1 mg x [address] Anderson spoke with Neurosurgery in regards to herniated disk, would not do any interventions at this time. So will admit for observation for pain control. Denies any nausea or vomiting, states that pain was so bad that staff at [facility] got her to ER, states didn't attempt any oral medications at home. She states she has urine incontinence but denies bowel incontinence. Urine incontinence is worse since her fall. She also has neuropathy in her feet since chemotherapy for colon cancer(1992). Denies any fever, chills, shortness of breath, chest pain, constipation, diarrhea, dysuria, frequency. She does have urgency, states this is chronic. History of DM, breast cancer, uterine cancer(2019) s/p total hysterectomy(2019). Rash under her pannus, usually uses Nystatin. Lower Back Pain Score (Numeric/FACES): 4 - Related Data Allergies/Adverse Reactions: Allergies Allergy/AdvReac Type Severity Reaction Status Date / Time cephalexin [From Keflex] Allergy Hives Verified 12/20/20 10:02 oxycodone [From Tylox] Allergy Shortness Verified 12/20/20 10:02 of Breath Home Medications: Home Meds Multivit-Min/Iron/Folic/Lutein [Centrum Silver Women Tablet] 1 tab PO DAILY 10/16/19 [History] Potassium Chloride [Klor-Con M20] 60 meq PO BID 10/16/19 [History] Simvastatin 40 mg PO BEDTIME 10/16/19 [History] allopurinoL [Zyloprim] 300 mg PO DAILY 10/16/19 [History] metOLazone [Metolazone] 2.5 mg PO MOWEFR 10/16/19 [History] polyethylene glycoL 3350 [MiraLAX] 17 gm PO DAILY PRN 10/16/19 [History] Ferrous Sulfate 325 mg PO DAILY 10/17/19 [History] Furosemide 80 mg PO DAILY 07/23/20 [History] Acetaminophen [Tylenol Arthritis] 1,300 mg PO Q8H PRN 12/20/20 [History] Amoxicillin 1,000 mg PO ASDIRECTED PRN 12/20/20 [History] Aspirin [Halfprin] 81 mg PO BEDTIME 12/20/20 [History] Celecoxib [CeleBREX] 200 mg PO BID 12/20/20 [History] Cholecalciferol (Vitamin D3) [Vitamin D3] 2,000 unit PO DAILY 12/20/20 [History] Nystatin [Nystatin Crm] 1 applic TOP TID PRN 12/20/20 [History] PEG 400/Propylene Glycol [Systane Lubricant] 1 drop EYEBOTH Q4H PRN 12/20/20 [History] metFORMIN [Glucophage] 500 mg PO BIDMEALS 12/20/20 [History] Past Medical History Cardiovascular History: Reports: Heart Murmur, High Cholesterol, Other (See Below) Other Cardiovascular History: cardiolyte stress test positive but angiogram that followed was negative. Genitourinary History: Reports: Urinary Incontinence [employer]ING [employer] History: Reports: Dysfunctional Uterine Bleeding, Other OB/BYN History: Musculoskeletal History: Reports: Arthritis, Fracture, Gout, Other (See Below) Other Musculoskeletal History: Lymphedema, back compression fracture. Neurological History: Reports: Neuropathy, Diabetic, Neuropathy, Peripheral Endocrine/Metabolic History: Reports: Diabetes, Type II, Hypothyroidism, Obesity/BMI 30+ Hematologic History: Reports: Blood Transfusion(s), Iron Deficiency Oncologic (Cancer) History: Reports: Breast, Colon, Uterine - Infectious Disease History Infectious Disease History: Reports: Chicken Pox, Measles, Mumps, Shingles - Past Surgical History HEENT Surgical History: Reports: Eye Surgery, Tonsillectomy Other HEENT Surgeries/Procedures: bilat cataract, thyroidectomy. Sees best with left eye. Other Cardiovascular Surgeries/Procedures: angiogram OK 10-15yrs ago GI Surgical History: Reports: Colon, Colonoscopy Female Surgical History: Reports: Hysterectomy Other Female Surgeries/Procedures: ovarian cyst Endocrine Surgical History: Reports: Thyroidectomy Musculoskeletal Surgical History: Reports: Knee Replacement Other Musculoskeletal Surgeries/Procedures:: bilat knee replacement Oncologic Surgical History: Reports: Other (See Below) Other Oncologic Surgeries/Procedures: colon resection, bilat mastectomy, hysterectomy for uterine cancer Social & Family History - Family History Family Medical History: No Pertinent Family History - Tobacco Use Tobacco Use Status *Q: Never Tobacco User Second Hand Smoke Exposure: No - Caffeine Use Caffeine Use: Reports: Coffee, Soda Caffeine Use Comment: 2 cups of each per day - Recreational Drug Use Recreational Drug Use: No - Living Situation & Occupation Living situation: Reports: Occupation: Retired H&P Review of Systems - Review of Systems: Review Of Systems: Comprehensive ROS is negative, except as noted in HPI. Exam - Exam Exam: See Below - Vital Signs Vital Signs: Last Vital Signs Temp 98 F 12/20/20 14:30 Pulse 72 12/20/20 15:27 Resp 16 12/20/20 15:27 BP 131/67 12/20/20 15:27 Pulse Ox 92 L 12/20/20 15:27 Weight: 284 lb - Exam General: Alert, Oriented, Cooperative. No: Mild Distress HEENT: PERRLA, Conjunctiva Clear, EOMI, Hearing Intact, Mucosa Moist & [place] Neck: Trachea Midline Lungs: Clear to Auscultation, Normal Respiratory Effort Cardiovascular: Regular Rate, Regular Rhythm GI/Abdominal Exam: Normal Bowel Sounds, Soft, Non-Tender, No Distention Extremities: No Pedal Edema Peripheral Pulses: 2+: Radial (L), Radial (R) Skin: Rash (erythematous macular rash under pannus-midline to left hip, consistent with candidasis) Neurological: Normal Speech, Other (moves all extremities). No: Sensation Intact (decreased in both feet & calves, states it is not new) Psychiatric: Normal Affect, Normal Mood - Patient Data Lab Results Last 24 hrs: Laboratory Results - last 24 hr 12/20/20 12/20/20 12/20/20 Range/Units 13:30 14:00 14:00 WBC 7.1 (3.0-10.3) x10-3/uL RBC 3.10 L (3.60-5.20) x10(6)uL Hgb 11.3 L (11.4-15.5) g/dL Hct 31.1 L (34.2-48.2) % MCV 100.6 H (76.7-100.5) fL MCH 36.4 H (23.9-33.9) pg MCHC 36.2 H (31.9-34.8) g/dL RDW 14.5 (12.3-16.5) % Plt Count 228 (151-488) x10(3)uL MPV 9.5 (7.1-12.4) fL Neut % (Auto) 79.0 H (30.8-76.2) % Lymph % (Auto) 11.1 L (18.4-52.1) % Sharkey % (Auto) 5.5 (4.4-15.7) % Eos % (Auto) 3.7 (0.6-8.1) % Baso % (Auto) 0.7 (0.2-1.5) % Neut # (Auto) 5.6 (1.5-6.3) x10-3/uL Lymph # (Auto) 0.8 L (1.0-4.4) x10-3/uL Sharkey # (Auto) 0.4 (0.3-1.0) x10-3/uL Eos # (Auto) 0.3 (0.0-0.8) x10-3/uL Baso # (Auto) 0.1 (0.0-0.1) x10-3/uL Sodium 143 (135-145) mmol/L Potassium 3.8 (3.5-5.3) mmol/L Chloride 104 (100-110) mmol/L Carbon Dioxide 32 (21-32) mmol/L BUN 21 H (7-18) mg/dL Creatinine 0.8 (0.55-1.02) mg/dL Est Cr Clr Drug Dosing 51.63 mL/min Estimated GFR (MDRD) > 60 (>60) BUN/Creatinine Ratio 26.3 H (9-20) Glucose 106 (80-116) mg/dL Calcium 9.3 (8.6-10.2) mg/dL Total Bilirubin 0.4 (0.1-1.3) mg/dL AST 26 H (5-25) IU/L ALT 20 D (12-36) U/L Alkaline Phosphatase 114 H (56-112) IU/L Total Protein 7.3 (6.0-8.0) g/dL Albumin 3.2 (3.2-4.6) g/dL Globulin 4.1 g/dL Albumin/Globulin Ratio 0.8 Urine Color (YELLOW) Urine Appearance (CLEAR) Urine pH (5.0-6.5) Ur Specific [place] (1.010-1.025) Urine Protein (NEGATIVE) mg/dL Urine Glucose (UA) (NORMAL) mg/dL Urine Ketones (NEGATIVE) mg/dL Urine Occult Blood (NEGATIVE) Urine Nitrite (NEGATIVE) Urine Bilirubin (NEGATIVE) Urine Urobilinogen (NEGATIVE) mg/dL Ur Leukocyte Esterase (NEGATIVE) Urine RBC (0-5) Urine WBC (0-5) Ur Squamous Epith Cells (NS,R,O) Urine Bacteria (NS) SARS-CoV-2 RNA (LAXMI) Negative (NEGATIVE) 12/20/20 Range/Units 14:10 WBC (3.0-10.3) x10-3/uL RBC (3.60-5.20) x10(6)uL Hgb (11.4-15.5) g/dL Hct (34.2-48.2) % MCV (76.7-100.5) fL MCH (23.9-33.9) pg MCHC (31.9-34.8) g/dL RDW (12.3-16.5) % Plt Count (151-488) x10(3)uL MPV (7.1-12.4) fL Neut % (Auto) (30.8-76.2) % Lymph % (Auto) (18.4-52.1) % Sharkey % (Auto) (4.4-15.7) % Eos % (Auto) (0.6-8.1) % Baso % (Auto) (0.2-1.5) % Neut # (Auto) (1.5-6.3) x10-3/uL Lymph # (Auto) (1.0-4.4) x10-3/uL Sharkey # (Auto) (0.3-1.0) x10-3/uL Eos # (Auto) (0.0-0.8) x10-3/uL Baso # (Auto) (0.0-0.1) x10-3/uL Sodium (135-145) mmol/L Potassium (3.5-5.3) mmol/L Chloride (100-110) mmol/L Carbon Dioxide (21-32) mmol/L BUN (7-18) mg/dL Creatinine (0.55-1.02) mg/dL Est Cr Clr Drug Dosing mL/min Estimated GFR (MDRD) (>60) BUN/Creatinine Ratio (9-20) Glucose (80-116) mg/dL Calcium (8.6-10.2) mg/dL Total Bilirubin (0.1-1.3) mg/dL AST (5-25) IU/L ALT (12-36) U/L Alkaline Phosphatase (56-112) IU/L Total Protein (6.0-8.0) g/dL Albumin (3.2-4.6) g/dL Globulin g/dL Albumin/Globulin Ratio Urine Color Yellow (YELLOW) Urine Appearance Clear (CLEAR) Urine pH 6.5 (5.0-6.5) Ur Specific [place] 1.010 (1.010-1.025) Urine Protein Negative (NEGATIVE) mg/dL Urine Glucose (UA) Normal (NORMAL) mg/dL Urine Ketones Negative (NEGATIVE) mg/dL Urine Occult Blood Negative (NEGATIVE) Urine Nitrite Negative (NEGATIVE) Urine Bilirubin Negative (NEGATIVE) Urine Urobilinogen Normal (NEGATIVE) mg/dL Ur Leukocyte Esterase Negative (NEGATIVE) Urine RBC Not seen (0-5) Urine WBC 0-5 (0-5) Ur Squamous Epith Cells Rare (NS,R,O) Urine Bacteria Rare H (NS) SARS-CoV-2 RNA (LAXMI) (NEGATIVE) Result Diagrams: 12/20/20 14:00 12/20/20 14:00 Sepsis Event Note - Evaluation Sepsis Screening Result: No Definite Risk - Focused Exam Vital Signs: Vital Signs Temp Pulse Pulse Resp BP BP Pulse Ox 12/20/20 15:27 72 16 131/67 92 L 12/20/20 14:30 98 F 66 93 18 134/66 12/20/20 10:00 98.4 F 70 18 149/70 H 95 *Q Meaningful Use (ADM) - VTE *Q VTE Mechanical Contraindications *Q: At Risk for Falls - VTE Risk Assess *Q Each Risk Factor Represents 1 Point: Obesity ( BMI > 25 kg/m2) Total Score 1 Point Risk Factors: 1 Each Risk Factor Represents 2 Points: None Total Score 2 Point Risk Factors: 0 Each Risk Factor Represents 3 Points: Age 75 Years or Greater Total Score 3 Point Risk Factors: 3 Each Risk Factor Represents 5 Points: None Total Score 5 Point Risk Factors: 0 Venous Thromboembolism Risk Factor Score *Q: 4 - Problem List (1) Acute low back pain SNOMED Code(s): 972933284 ICD Code: M54.5 - LOW BACK PAIN Status: Acute Current Visit: No Onset Date: ~12/10/20 Qualifiers: Back pain laterality: right Sciatica presence: without sciatica Qualified Code(s): M54.5 - Low back pain (2) Fall SNOMED Code(s): 7060988, 104815932 ICD Code: W19.XXXA - UNSPECIFIED FALL, INITIAL ENCOUNTER Status: Acute Current Visit: Yes Onset Date: ~12/10/20 (3) Bulging disc SNOMED Code(s): 87920799 ICD Code: [id number] - Status: Acute Current Visit: Yes Problem Details: L5/S1 (4) Spinal stenosis SNOMED Code(s): 36158616 ICD Code: M48.00 - SPINAL STENOSIS, SITE UNSPECIFIED Status: Chronic Current Visit: Yes (5) History of colon cancer SNOMED Code(s): 723491192 ICD Code: Z85.038 - PERSONAL HISTORY OF MALIGNANT NEOPLASM OF LARGE INTESTINE Status: Acute Current Visit: Yes (6) Peripheral neuropathy due to chemotherapy SNOMED Code(s): 893780312 ICD Code: G62.0 - DRUG-INDUCED POLYNEUROPATHY; T45.1X5A - ADVERSE EFFECT OF ANTINEOPLASTIC AND IMMUNOSUP DRUGS, INIT Status: Chronic Current Visit: Yes (7) History of breast cancer SNOMED Code(s): 677156043 ICD Code: Z85.3 - PERSONAL HISTORY OF MALIGNANT NEOPLASM OF BREAST Status: Chronic Current Visit: Yes (8) DDD (degenerative disc disease) SNOMED Code(s): 43297894 ICD Code: DQA1466 - Status: Chronic Current Visit: Yes (9) History of uterine cancer SNOMED Code(s): 843145936 ICD Code: Z85.42 - PERSONAL HISTORY OF MALIGNANT NEOPLASM OF OTH PRT UTERUS Status: Chronic Current Visit: Yes (10) Diabetes type 2, controlled SNOMED Code(s): 56023953, 632547078 ICD Code: E11.9 - TYPE 2 DIABETES MELLITUS WITHOUT COMPLICATIONS Status: Chronic Current Visit: No (11) HLD (hyperlipidemia) SNOMED Code(s): 87486282 ICD Code: E78.5 - HYPERLIPIDEMIA, UNSPECIFIED Status: Chronic Current Visit: No (12) Obesity SNOMED Code(s): 845795724, 297830452 ICD Code: E66.9 - OBESITY, UNSPECIFIED Status: Chronic Current Visit: No Qualifiers: Body mass index: BMI 45.0-49.9 Problem List Initiated/Reviewed/Updated: Yes Orders Last 24hrs: Active Orders 24 hr Category Date Time Status Patient Status [ADT] Routine ADT 12/20/20 15:30 Active Blood Glucose Check, Bedside [RC] WITHMEALSANDBED Care 12/20/20 15:30 Active Oxygen Therapy [RC] PRN Care 12/20/20 15:30 Active Up With Assistance [RC] ASDIRECTED Care 12/20/20 15:30 Active Up to Chair [RC] ASDIRECTED Care 12/20/20 15:30 Active VTE/DVT Education [RC] Per Unit Routine Care 12/20/20 15:30 Active Vital Signs [RC] Q4H Care 12/20/20 15:30 Active OT Evaluation and Treatment [CONS] Routine Cons 12/20/20 15:30 Active PT Evaluation and Treatment [CONS] Routine Cons 12/20/20 15:30 Active Consistent Carbohydrate Diet [DIET] Diet 12/20/20 Dinner Active BASIC METABOLIC PANEL,BMP [CHEM] Routine Lab 12/21/20 06:00 Ordered Acetaminophen [Tylenol Arthritis Pain] Med 12/20/20 15:45 Ordered 1,300 mg PO Q8H Acetaminophen/HYDROcodone [[place] 325-5 MG] Med 12/20/20 16:15 Active 1 tab PO Q6H PRN Aspirin [Halfprin] Med 12/20/20 21:00 Ordered 81 mg PO BEDTIME Cholecalciferol (Vitamin D3) [Vitamin D3] Med 12/21/20 09:00 Ordered 2,000 unit PO DAILY Dextrose 50% in Water Med 12/20/20 15:38 Ordered 50 ml IVPUSH ASDIRECTED PRN Docusate Sodium/Sennosides [Senna Plus] Med 12/20/20 21:00 Ordered 1 tab PO BID Ferrous Sulfate Med 12/21/20 09:00 Ordered 325 mg PO DAILY Furosemide [Lasix] Med 12/21/20 09:00 Ordered 80 mg PO DAILY Glucagon,Human Recombinant [GlucaGen] Med 12/20/20 15:38 Ordered 1 mg IM ASDIRECTED PRN Insulin Lispro [HumaLOG] Med 12/20/20 18:00 Ordered See Protocol SUBCUT TIDMEALS Ketorolac [Toradol] Med 12/20/20 15:30 Ordered 15 mg IVPUSH Q6H PRN Morphine Med 12/20/20 15:36 Ordered 2 mg IVPUSH Q2H PRN Multivit-Min/Iron/Folic/Lutein [Centrum Silver Women Med 12/21/20 09:00 Ordered Tablet] 1 tab PO DAILY Ondansetron [Zofran ODT] Med 12/20/20 15:30 Ordered 4 mg PO Q6H PRN Potassium Chloride [Klor-Con M20] Med 12/20/20 21:00 Ordered 60 meq PO BID Promethazine [Phenergan] 12.5 mg Med 12/20/20 15:30 Ordered Sodium Chloride 0.9% [Normal Saline] 50 ml IV Q6H Simvastatin [Zocor] Med 12/20/20 21:00 Ordered 40 mg PO BEDTIME allopurinoL [Zyloprim] Med 12/21/20 09:00 Ordered 300 mg PO DAILY metFORMIN [Glucophage] Med 12/20/20 18:00 Ordered 500 mg PO BIDMEALS metOLazone [Zaroxolyn] Med 12/21/20 15:33 Ordered 2.5 mg PO MOWEFR polyethylene glycoL 3350 [MiraLAX] Med 12/21/20 09:00 Ordered 17 gm PO DAILY Antiembolic Hose [OM.PC] Per Unit Routine Oth 12/20/20 15:31 Ordered Code Status [Resuscitation Status] Routine Resus Stat 12/20/20 16:12 Ordered Medication Orders Acetaminophen (Acetaminophen 650 Mg Tab.Er) 650 mg PO Q8H GABBY Hydrocodone Bitart/Acetaminophen (Acetaminophen/Hydrocodone 325-5 Mg Tab) 1 tab PO Q6H PRN PRN Reason: SEVERE PAIN Allopurinol (Allopurinol 300 Mg Tab) 300 mg PO DAILY [facility] Aspirin (Aspirin 81 Mg Tab.Ec) 81 mg PO BEDTIME [facility] Dextrose/Water (50% Dextrose In Water 50 Ml Syringe) 50 ml IVPUSH ASDIRECTED PRN PRN Reason: Hypoglycemia Ferrous Sulfate (Ferrous Sulfate 325 Mg Tab) 325 mg PO DAILY [facility] Furosemide (Furosemide 80 Mg Tab) 80 mg PO DAILY [facility] Glucagon (Glucagon,Human Recombinant 1 Mg Vial) 1 mg IM ASDIRECTED PRN PRN Reason: Hypoglycemia Promethazine HCl 12.5 mg/ (Sodium Chloride) 50.5 mls @ 200 mls/hr IV Q6H PRN PRN Reason: Nausea/Vomiting Insulin Human Lispro (Insulin Lispro 100 Unit/Ml 3 Ml Kwikpen) 0 unit SUBCUT TIDMEALS [facility]; Protocol Ketorolac Tromethamine (Ketorolac 30 Mg/Ml Sdv) 15 mg IVPUSH Q6H PRN PRN Reason: Pain (moderate 4-6) Metformin HCl (Metformin 500 Mg Tab) 500 mg PO BIDMEALS [facility] Metolazone (Metolazone 2.5 Mg Tab) 2.5 mg PO MOWEFR [facility] Morphine Sulfate (Morphine 2 Mg/Ml Syringe) 2 mg IVPUSH Q2H PRN PRN Reason: Pain (severe 7-10) Non-Formulary Medication (Cholecalciferol (Vitamin D3) [Vitamin D3]) 2,000 unit PO DAILY [facility] Non-Formulary Medication (Multivit-Min/Iron/Folic/Lutein [Centrum Silver Women Tablet]) 1 tab PO DAILY [facility] Ondansetron HCl (Ondansetron 4 Mg Tab.Dis) 4 mg PO Q6H PRN PRN Reason: nausea, able to take PO Polyethylene Glycol (Polyethylene Glycol 3350 Powder 17 Gm Packet) 17 gm PO DAILY [facility] Potassium Chloride (Potassium Chloride 20 Meq Tab.Er) 60 meq PO BID [facility] Senna/Docusate Sodium (Docusate Sodium/Sennosides 50-8.6 Mg Tab) 1 tab PO BID [facility] Simvastatin (Simvastatin 40 Mg Tab) 40 mg PO BEDTIME [facility] Assessment/Plan Comment:: 1. Admit for observation for intractable lumbar back pain, herniated disk L5/S1, Spinal stenosis, moderate. 2. Pain control: Tylenol arthritis 1 tab every 8 hours scheduled, Toradol 15 mg IV q6h scheduled, Hydrocodone/APAP 5/325 mg po q6h as needed, Morphine 2 mg IV q2h as needed. Hold Celebrex. PT/OT evaluate & treat. May need set up for SHERON injection with her primary as anesthesia does NOT do them here. 3. DM: continue home dose of Metformin 500 mg bid, received Prednisone 40 mg x 1 in ER, will do accuchecks qidac&hs to monitor. If needed will start Humalog sliding scale. 4. Diet: Consistent carb diet. 5. Activity: up to chair tid, up with assistance. Uses front wheel walker when out shopping. 6. DVT prophylaxis: TEDs BLE. 7. CODE STATUS: FULL. 8. Discharge planning: anticipate 24-48 hours to get pain controlled, and on oral medications will discharge back to [facility], lives there with her . Her has home health through [facility] and she would want to have same home health nurse if possible. - Mortality Measure Prognosis:: Good
[2020-12-20] MEDS: Acetaminophen 650 MG Tab.ER PO SCH ×2 (17:20→23:01)
[2020-12-20] MEDS: Ketorolac 15 MG/ML SDV IVPUSH SCH ×2 (17:21→22:11)
[2020-12-20] MEDS: Sodium Chloride 0.9% 10 ML Syringe FLUSH PRN ×2 (17:23→22:12)
[2020-12-20] MEDS: metFORMIN 500 MG Tab *PTOM PO SCH (17:36)
[2020-12-20] MEDS ORDERED: Insulin Lispro 100 Unit/ML 3 ML KwikPen SUBCUT SCH (18:00)
[2020-12-20] MEDS ORDERED: Enoxaparin 40 MG/0.4 ML Syringe SUBCUT SCH (18:00)
[2020-12-20] MEDS: Potassium Chloride 20 MEQ Tab.ER *PTOM PO SCH (20:22)
[2020-12-20] MEDS ORDERED: Simvastatin 40 MG Tab *PTOM PO SCH (21:00)
[2020-12-20] MEDS ORDERED: Aspirin 81 MG Tab.EC *PTOM PO SCH (21:00)
[2020-12-21] MEDS: Ketorolac 15 MG/ML SDV IVPUSH SCH ×2 (05:04→10:55)
[2020-12-21] MEDS: Sodium Chloride 0.9% 10 ML Syringe FLUSH PRN ×2 (05:07→10:55)
[2020-12-21] MEDS ORDERED: Metolazone 2.5 MG Tab PO SCH (08:00)
[2020-12-21] MEDS: Acetaminophen 650 MG Tab.ER PO SCH (08:30)
[2020-12-21] MEDS: Potassium Chloride 20 MEQ Tab.ER *PTOM PO SCH (08:30)
[2020-12-21] MEDS: metFORMIN 500 MG Tab *PTOM PO SCH (08:30)
[2020-12-21] MEDS ORDERED: Furosemide 80 MG Tab *PTOM PO SCH (09:00)
[2020-12-21] MEDS ORDERED: Allopurinol 300 MG Tab *PTOM PO SCH (09:00)
[2020-12-21] MEDS ORDERED: CHOLECALCIFEROL 2000 UNIT PO SCH (09:00)
[2020-12-21] MEDS ORDERED: Ferrous Sulfate 325 MG Tab *PTOM PO SCH (09:00)
[2020-12-21] MEDS ORDERED: Multivitamin Tab *PTOM PO SCH (09:00)
[2020-12-21] MEDS ORDERED: Polyethylene Glycol 3350 Powder 17 GM Packet PO SCH (09:00)
--- NOTE | 2020-12-21 15:28 | PCM.DCSUM1 ---
Discharge Summary - Hospital Course HPI Initial Comments: Tali presented to ER yesterday for worsening low back pain, had CT lumbar spine showed degenerative disk disease, herniated bulging disk at L5-S1, moderate spinal stenosis. She was given Dilaudid 1 mg x 1 and Hydroxyzine 50 mg x 1 and sent home with Hydrocodone-APAP as needed for pain. She fell after getting ultrasound on 12/10, had been changing back into her street clothes, states not sure if she slipped on something or what happened, landing on her b uttocks. [employer] called for assistance to get her back up, she was not evaluated in ER at the time. She states the pain got worse a week after the fall which was , started Celebrex 200 mg bid by her primary doctor. She presented again to ER today for intractable back pain, has not taken her medications this morning. She did not take Celebrex last night or this morning. In ER received Cyclobenzaprine 10 mg x 1, Tramadol 100 mg x 1, Prednisone 40 mg x 1, pain still severe then received Dilaudid 1 mg x [address] Anderson spoke with Neurosurgery in regards to herniated disk, would not do any interventions at this time. So will admit for observation for pain control. Denies any nausea or vomiting, states that pain was so bad that staff at [facility] got her to ER, states didn't attempt any oral medications at home. She states she has urine incontinence but denies bowel incontinence. Urine incontinence is worse since her fall. She also has neuropathy in her feet since chemotherapy for colon cancer(1992). Denies any fever, chills, shortness of breath, chest pain, constipation, diarrhea, dysuria, frequency. She does have urgency, states this is chronic. History of DM, breast cancer, uterine cancer(2019) s/p total hysterectomy(2019). Rash under her pannus, usually uses Nystatin. Diagnosis: Stroke: No - Discharge Data Discharge Date: 12/21/20 ([facility]) Discharge Disposition: Home, W Home Health Agency 06 Preliminary Cause of *Q: Multi System Organ Failure Condition: Good - Referral to Home Health Date of Face to Face Encounter: 12/21/20 Reason for Homebound Status: [facility] Primary Care Physician: Lg Duenas MD Skilled Need: PT/OT - Discharge Diagnosis/Problem(s) (1) Acute low back pain SNOMED Code(s): 844954462 ICD Code: M54.5 - LOW BACK PAIN Status: Acute Onset Date: ~12/10/20 Qualifiers: Back pain laterality: right Sciatica presence: without sciatica Qualified Code(s): M54.5 - Low back pain (2) Fall SNOMED Code(s): 9445797, 793471290 ICD Code: W19.XXXA - UNSPECIFIED FALL, INITIAL ENCOUNTER Status: Acute Onset Date: ~12/10/20 (3) Bulging disc SNOMED Code(s): 26932828 ICD Code: [id number] - Status: Acute Problem Details: L5/S1 (4) Spinal stenosis SNOMED Code(s): 03766315 ICD Code: M48.00 - SPINAL STENOSIS, SITE UNSPECIFIED Status: Chronic (5) History of colon cancer SNOMED Code(s): 732486911 ICD Code: Z85.038 - PERSONAL HISTORY OF MALIGNANT NEOPLASM OF LARGE INTESTINE Status: Acute (6) Peripheral neuropathy due to chemotherapy SNOMED Code(s): 032562692 ICD Code: G62.0 - DRUG-INDUCED POLYNEUROPATHY; T45.1X5A - ADVERSE EFFECT OF ANTINEOPLASTIC AND IMMUNOSUP DRUGS, INIT Status: Chronic (7) History of breast cancer SNOMED Code(s): 354612350 ICD Code: Z85.3 - PERSONAL HISTORY OF MALIGNANT NEOPLASM OF BREAST Status: Chronic (8) DDD (degenerative disc disease) SNOMED Code(s): 49717446 ICD Code: UCG8302 - Status: Chronic (9) History of uterine cancer SNOMED Code(s): 523149784 ICD Code: Z85.42 - PERSONAL HISTORY OF MALIGNANT NEOPLASM OF OTH PRT UTERUS Status: Chronic (10) Diabetes type 2, controlled SNOMED Code(s): 43985284, 318893547 ICD Code: E11.9 - TYPE 2 DIABETES MELLITUS WITHOUT COMPLICATIONS Status: Chronic (11) HLD (hyperlipidemia) SNOMED Code(s): 02944119 ICD Code: E78.5 - HYPERLIPIDEMIA, UNSPECIFIED Status: Chronic (12) Obesity SNOMED Code(s): 976920958, 861920481 ICD Code: E66.9 - OBESITY, UNSPECIFIED Status: Chronic Qualifiers: Body mass index: BMI 45.0-49.9 - Patient Summary/Data Consults: Consultations 12/20/20 15:30 OT Evaluation and Treatment [CONS] Routine Please Evaluate and Treat. OT Reason for Consult: ADL's This query below is only for informational purposes and is not editable. Admission Diagnosis/Problem: Low back pain PT Evaluation and Treatment [CONS] Routine Please Evaluate and Treat. PT Reason for Consult: Ambulation This query below is only for informational purposes and is not editable. Admission Diagnosis/Problem: Low back pain Hospital Course: Tali received Dilaudid 1 mg in ER before arriving to the floor, Scheduled Tylenol ER 650 q8h and Toradol 15 mg IV q6h, with Morphine & Hydrocodone/APAP as needed for severe/breakthrough pain. She did not require any narcotics. States her pain is tolerable, had worsening with PT/OT assessment but was still controlled. Stated Ibuprofen works better than the Celebrex so will discontinue on discharge and have her take Ibuprofen 200 mg every 4 hours scheduled as outpatient for two weeks then change to as needed. 3 day script for hydrocodone/apap 5/325 mg sent for breakthrough pain. If she is not requiring Hydrocodone she could increase her Tylenol arthritis back to 2 tablets q8h for the next 2 weeks then change to as needed. Follow up with Dr Yost on ThursdayDecember 24 for referral to neurosurgery/pain management for SHERON injection. Home health referral made for PT/OT. - Patient Instructions Diet: Diabetic Diet Activity: As Tolerated Driving: Do Not Drive Showering/Bathing: May Shower Notify Provider of: Fever, Increased Pain Other/Special Instructions: Follow up with Dr Yost on ThursdayDecember 24 to get set up for low back steroid injection. - Discharge Plan *PRESCRIPTION DRUG MONITORING PROGRAM REVIEWED*: Not Applicable *COPY OF PRESCRIPTION DRUG MONITORING REPORT IN PATIENT TYRONE: Not Applicable Prescriptions/Med Rec: Ibuprofen 200 mg PO Q4H 14 Days #84 tablet Acetaminophen/HYDROcodone [Mullen 325-5 MG] 1 tab PO Q6H PRN 3 Days #12 tablet PRN Reason: SEVERE PAIN Home Medications: Home Meds Multivit-Min/Iron/Folic/Lutein [Centrum Silver Women Tablet] 1 tab PO DAILY 10/16/19 [History] Potassium Chloride [Klor-Con M20] 60 meq PO BID 10/16/19 [History] Simvastatin 40 mg PO BEDTIME 10/16/19 [History] allopurinoL [Zyloprim] 300 mg PO DAILY 10/16/19 [History] metOLazone [Metolazone] 2.5 mg PO MOWEFR 10/16/19 [History] polyethylene glycoL 3350 [MiraLAX] 17 gm PO DAILY PRN 10/16/19 [History] Ferrous Sulfate 325 mg PO DAILY 10/17/19 [History] Furosemide 80 mg PO DAILY 07/23/20 [History] Amoxicillin 1,000 mg PO ASDIRECTED PRN 12/20/20 [History] Aspirin [Halfprin] 81 mg PO BEDTIME 12/20/20 [History] Cholecalciferol (Vitamin D3) [Vitamin D3] 2,000 unit PO DAILY 12/20/20 [History] Nystatin [Nystatin Crm] 1 applic TOP TID PRN 12/20/20 [History] PEG 400/Propylene Glycol [Systane Lubricant] 1 drop EYEBOTH Q4H PRN 12/20/20 [History] metFORMIN [Glucophage] 500 mg PO BIDMEALS 12/20/20 [History] Acetaminophen [Tylenol Arthritis Pain] 650 mg PO Q8H #0 tab.er 12/21/20 [Rx] Acetaminophen/HYDROcodone [Mullen 325-5 MG] 1 tab PO Q6H PRN 3 Days #12 tablet 12/21/20 [Rx] Ibuprofen 200 mg PO Q4H 14 Days #84 tablet 12/21/20 [Rx] Oxygen Therapy Mode: Room Air Forms: ED Department Discharge Referrals: Eugene Yost MD [ED Physician] - - Discharge Summary/Plan Comment DC Time >30 min.: No - General Info Date of Service: 12/21/20 Subjective Update: Tali states her pain is tolerable, she has not required any hydrocodone or Dilaudid since admission to floor, last dose of Dilaudid was yesterday in the ER. Had bowel movement, soft & formed today. Denies any other complaints. States she had SHERON injection in her neck for bulging disc in 2008, helped, has not had to have another injection or surgery for it. She would be interested in getting SHERON for her lumbar spine. Functional Status: Reports: Pain Controlled, Tolerating Diet, Ambulating, Urinating - Patient Data Vitals - Most Recent: Last Vital Signs Temp 97.9 F 12/21/20 07:25 Pulse 61 12/21/20 07:25 Resp 93 H 12/21/20 07:25 BP 120/64 12/21/20 07:25 Pulse Ox 94 L 12/21/20 04:00 Weight - Most Recent: 280 lb 4.8 oz Lab Results - Last 24 hrs: Laboratory Results - last 24 hr 12/20/20 12/20/20 12/21/20 Range/Units 17:35 20:19 06:05 Sodium 142 (135-145) mmol/L Potassium 4.5 (3.5-5.3) mmol/L Chloride 105 (100-110) mmol/L Carbon Dioxide 31 (21-32) mmol/L BUN 31 H D (7-18) mg/dL Creatinine 1.0 (0.55-1.02) mg/dL Est Cr Clr Drug Dosing 41.30 mL/min Estimated GFR (MDRD) 53 L (>60) BUN/Creatinine Ratio 31.0 H (9-20) Glucose 123 H (80-116) mg/dL POC Glucose 179 H 175 H (80-116) mg/dL Calcium 8.9 (8.6-10.2) mg/dL 12/21/20 Range/Units 11:01 Sodium (135-145) mmol/L Potassium (3.5-5.3) mmol/L Chloride (100-110) mmol/L Carbon Dioxide (21-32) mmol/L BUN (7-18) mg/dL Creatinine (0.55-1.02) mg/dL Est Cr Clr Drug Dosing mL/min Estimated GFR (MDRD) (>60) BUN/Creatinine Ratio (9-20) Glucose (80-116) mg/dL POC Glucose 99 (80-116) mg/dL Calcium (8.6-10.2) mg/dL Med Orders - Current: Current Medications Discontinued Medications Acetaminophen (Acetaminophen 650 Mg Tab.Er) 650 mg PO Q8H [facility] Last Admin: 12/21/20 08:30 Dose: 650 mg Documented by: Hydrocodone Bitart/Acetaminophen (Acetaminophen/Hydrocodone 325-5 Mg Tab) 1 tab PO Q6H PRN PRN Reason: SEVERE PAIN Allopurinol (Allopurinol 300 Mg Tab *Ptom) 300 mg PO DAILY [facility] Last Admin: 12/21/20 08:30 Dose: 300 mg Documented by: Aspirin (Aspirin 81 Mg Tab.Ec *Ptom) 81 mg PO BEDTIME [facility] Last Admin: 12/20/20 20:21 Dose: 81 mg Documented by: Cyclobenzaprine HCl (Cyclobenzaprine 10 Mg Tab) 10 mg PO NOW STA Stop: 12/20/20 10:15 Last Admin: 12/20/20 10:21 Dose: 10 mg Documented by: Dextrose/Water (50% Dextrose In Water 50 Ml Syringe) 50 ml IVPUSH ASDIRECTED PRN PRN Reason: Hypoglycemia Enoxaparin Sodium (Enoxaparin 40 Mg/0.4 Ml Syringe) 40 mg SUBCUT Q24H [facility] Last Admin: 12/20/20 17:32 Dose: 40 mg Documented by: Ferrous Sulfate (Ferrous Sulfate 325 Mg Tab *Ptom) 325 mg PO DAILY [facility] Last Admin: 12/21/20 08:30 Dose: 325 mg Documented by: Furosemide (Furosemide 80 Mg Tab *Ptom) 80 mg PO DAILY [facility] Last Admin: 12/21/20 08:30 Dose: 80 mg Documented by: Glucagon (Glucagon,Human Recombinant 1 Mg Vial) 1 mg IM ASDIRECTED PRN PRN Reason: Hypoglycemia Hydromorphone HCl (Hydromorphone 2 Mg/Ml Sdv) 1 mg IVPUSH ONETIME ONE Stop: 12/20/20 12:38 Last Admin: 12/20/20 13:00 Dose: 1 mg Documented by: Promethazine HCl 12.5 mg/ (Sodium Chloride) 50.5 mls @ 200 mls/hr IV Q6H PRN PRN Reason: Nausea/Vomiting Ketorolac Tromethamine (Ketorolac 15 Mg/Ml Sdv) 15 mg IVPUSH Q6H PRN PRN Reason: Pain (moderate 4-6) Ketorolac Tromethamine (Ketorolac 15 Mg/Ml Sdv) 15 mg IVPUSH Q6H [facility] Last Admin: 12/21/20 10:55 Dose: 15 mg Documented by: Metformin HCl (Metformin 500 Mg Tab *Ptom) 500 mg PO BIDMEALS [facility] Last Admin: 12/21/20 08:30 Dose: 500 mg Documented by: Metolazone (Metolazone 2.5 Mg Tab) 2.5 mg PO MOWEFR [facility] Last Admin: 12/21/20 08:30 Dose: 2.5 mg Documented by: Morphine Sulfate (Morphine 2 Mg/Ml Syringe) 2 mg IVPUSH Q2H PRN PRN Reason: Pain (severe 7-10) Multivitamins/Minerals/Vitamin C (Multivitamin Tab *Ptom) 1 tab PO DAILY [facility] Last Admin: 12/21/20 08:30 Dose: 1 tab Documented by: (Cholecalciferol ( Vitamin D3) [Vitamin D3] 2,000 Unit Cap) *Ptom 2,000 unit PO DAILY [facility] Last Admin: 12/21/20 08:30 Dose: 2,000 unit Documented by: Ondansetron HCl (Ondansetron 4 Mg Tab.Dis) 4 mg PO Q6H PRN PRN Reason: nausea, able to take PO Potassium Chloride (Potassium Chloride 20 Meq Tab.Er *Ptom) 60 meq PO BID [facility] Last Admin: 12/21/20 08:30 Dose: 60 meq Documented by: Prednisone (Prednisone 20 Mg Tab) 20 mg PO NOW STA Stop: 12/20/20 11:37 Last Admin: 12/20/20 11:40 Dose: 20 mg Documented by: Senna/Docusate Sodium (Docusate Sodium/Sennosides 50-8.6 Mg Tab) 1 tab PO BID [facility] Last Admin: 12/21/20 08:30 Dose: 1 tab Documented by: Simvastatin (Simvastatin 40 Mg Tab *Ptom) 40 mg PO BEDTIME [facility] Last Admin: 12/20/20 20:22 Dose: 40 mg Documented by: Sodium Chloride (Sodium Chloride 0.9% 10 Ml Syringe) 10 ml FLUSH ASDIRECTED PRN PRN Reason: saline lock flush as needed Last Admin: 12/21/20 10:55 Dose: 10 ml Documented by: Tramadol HCl (Tramadol 50 Mg Tab) 100 mg PO NOW STA Stop: 12/20/20 11:37 Last Admin: 12/20/20 11:40 Dose: 100 mg Documented by: - Exam General: Reports: Alert, Oriented, Cooperative, No Acute Distress Lungs: Reports: Clear to Auscultation, Normal Respiratory Effort Cardiovascular: Reports: Regular Rate, Regular Rhythm GI/Abdominal Exam: Normal Bowel Sounds, Soft, Non-Tender, No Distention Extremities: No Pedal Edema, Leg Pain, Other (Bench test: Negative, bilateral) *Q Meaningful Use (DIS) - VTE *Q VTE Mechanical Contraindications *Q: At Risk for Falls
== END 2020-12-21 13:45 | disposition home health service (06) ==
LOC: FB.ED 09:55 → UNDOADMOB 15:14 → FB.MS 15:14
PROVIDERS: ADMIT Family Medicine; ATTEND Family Medicine
DX: M54.5 Low back pain (principal); M51.37 Other intervertebral disc degeneration, lumbosacral region; M48.061 Spinal stenosis, lumbar region without neurogenic claudication; N39.0 Urinary tract infection, site not specified; E11.40 Type 2 diabetes mellitus with diabetic neuropathy, unspecified; E78.5 Hyperlipidemia, unspecified; G62.0 Drug-induced polyneuropathy; T45.1X5A Adverse effect of antineoplastic and immunosuppressive drugs, initial encounter; E78.00 Pure hypercholesterolemia, unspecified; E03.9 Hypothyroidism, unspecified; E66.9 Obesity, unspecified; Z68.42 Body mass index [BMI] 45.0-49.9, adult; Z20.822 Contact with and (suspected) exposure to COVID-19; Z85.3 Personal history of malignant neoplasm of breast; Z85.42 Personal history of malignant neoplasm of other parts of uterus; Z85.038 Personal history of other malignant neoplasm of large intestine; W19.XXXA Unspecified fall, initial encounter; Z88.8 Allergy status to other drugs, medicaments and biological substances; Z79.82 Long term (current) use of aspirin; Z79.84 Long term (current) use of oral hypoglycemic drugs; Z79.899 Other long term (current) drug therapy
CPT/HCPCS: 36415; 80048; 80053; 81001; 82947; 85025; 94760; 96372; 96374; 96375; 96376; 97110-GP; 97162-GP; 97165-GO; 99285-25; A9270-GY; G0378; J1170; J1650; J1885; J7512; U0002

== ENCOUNTER 2020-12-24 22:52 | Observation (INO) | payer MEDICARE, BC ==
[2020-12-24] MEDS ORDERED: HYDROmorphone 2 MG/ML SDV IVPUSH STA (23:11)
[2020-12-24] MEDS ORDERED: tiZANidine 4 MG Tab PO STA (23:11)
[2020-12-24] MEDS ORDERED: Ketorolac 30 MG/ML SDV IVPUSH ONE (23:11)
[2020-12-25] MEDS ORDERED: Magnesium Hydroxide 400 MG/5 ML Susp 30 ML Cup PO PRN (01:08)
[2020-12-25] MEDS ORDERED: HYDROmorphone 2 MG/ML SDV IVPUSH PRN (01:18)
[2020-12-25] MEDS ORDERED: tiZANidine 4 MG Tab PO PRN (01:18)
[2020-12-25] MEDS ORDERED: Acetaminophen/HYDROcodone 325-5 MG Tab PO PRN (01:19)
[2020-12-25] MEDS ORDERED: Non-Formulary Medication 1 Each (Amoxicillin [Amoxicillin] 500 MG Capsule) PO PRN (01:19)
--- NOTE | 2020-12-25 01:36 | EDM.PDOC ---
ED HPI GENERAL MEDICAL PROBLEM - General Chief Complaint: Back Pain or Injury Stated Complaint: BACK PAIN Time Seen by Provider: 12/24/20 23:00 Source of Information: Reports: Patient History Limitations: Reports: No Limitations - History of Present Illness INITIAL COMMENTS - FREE TEXT/NARRATIVE: Patient is an 80 yo WF fro [employer] who presented to the ED because of severe low back pain. The pain is over the lumbar area 06/09 and is ot able to get up from bed. She was bed bound since she was discharged on 12/21/20 with [facility]. Today she called Dr Yost who prescribed her oral dilaudid. lowback Pain Score (Numeric/FACES): 10 - Related Data Allergies Allergy/AdvReac Type Severity Reaction Status Date / Time cephalexin [From Keflex] Allergy Hives Verified 12/25/20 03:39 oxycodone [From Tylox] Allergy Shortness Verified 12/25/20 03:39 of Breath Home Meds: Home Meds Multivit-Min/Iron/Folic/Lutein [Centrum Silver Women Tablet] 1 tab PO DAILY 10/16/19 [History] Potassium Chloride [Klor-Con M20] 60 meq PO BID 10/16/19 [History] Simvastatin 40 mg PO BEDTIME 10/16/19 [History] allopurinoL [Zyloprim] 300 mg PO DAILY 10/16/19 [History] metOLazone [Metolazone] 2.5 mg PO MOWEFR 10/16/19 [History] polyethylene glycoL 3350 [MiraLAX] 17 gm PO DAILY PRN 10/16/19 [History] Ferrous Sulfate 325 mg PO DAILY 10/17/19 [History] Furosemide 80 mg PO DAILY 07/23/20 [History] Amoxicillin 1,000 mg PO ASDIRECTED PRN 12/20/20 [History] Aspirin [Halfprin] 81 mg PO BEDTIME 12/20/20 [History] Cholecalciferol (Vitamin D3) [Vitamin D3] 2,000 unit PO DAILY 12/20/20 [History] Nystatin [Nystatin Crm] 1 applic TOP TID PRN 12/20/20 [History] PEG 400/Propylene Glycol [Systane Lubricant] 1 drop EYEBOTH Q4H PRN 12/20/20 [History] metFORMIN [Glucophage] 500 mg PO BIDMEALS 12/20/20 [History] Acetaminophen [Tylenol Arthritis Pain] 650 mg PO Q8H #0 tab.er 12/21/20 [Rx] Acetaminophen/HYDROcodone [[facility] 325-5 MG] 1 tab PO Q6H PRN 3 Days #12 tablet 12/21/20 [Rx] Ibuprofen 200 mg PO Q4H 14 Days #84 tablet 12/21/20 [Rx] Past Medical History Cardiovascular History: Reports: Heart Murmur, High Cholesterol, Other (See Below) Other Cardiovascular History: cardiolyte stress test positive but angiogram that followed was negative. Genitourinary History: Reports: Urinary Incontinence COMPOSITION PROFESSOR History: Reports: Dysfunctional Uterine Bleeding, Other COMPOSITION PROFESSOR History: Musculoskeletal History: Reports: Arthritis, Fracture, Gout, Other (See Below) Other Musculoskeletal History: Lymphedema, back compression fracture. Neurological History: Reports: Neuropathy, Diabetic, Neuropathy, Peripheral Endocrine/Metabolic History: Reports: Diabetes, Type II, Hypothyroidism, Obesity/BMI 30+ Hematologic History: Reports: Blood Transfusion(s), Iron Deficiency Oncologic (Cancer) History: Reports: Breast, Colon, Uterine - Infectious Disease History Infectious Disease History: Reports: Chicken Pox, Measles, Mumps, Shingles - Past Surgical History HEENT Surgical History: Reports: Eye Surgery, Tonsillectomy Other HEENT Surgeries/Procedures: bilat cataract, thyroidectomy. Sees best with left eye. Other Cardiovascular Surgeries/Procedures: angiogram [place] 10-15yrs ago GI Surgical History: Reports: Colon, Colonoscopy Female Surgical History: Reports: Hysterectomy Other Female Surgeries/Procedures: ovarian cyst Endocrine Surgical History: Reports: Thyroidectomy Musculoskeletal Surgical History: Reports: Knee Replacement Other Musculoskeletal Surgeries/Procedures:: bilat knee replacement Oncologic Surgical History: Reports: Other (See Below) Other Oncologic Surgeries/Procedures: colon resection, bilat mastectomy, hysterectomy for uterine cancer Social & Family History - Family History Family Medical History: No Pertinent Family History - Caffeine Use Caffeine Use: Reports: Coffee, Soda Caffeine Use Comment: 2 cups of each per day - Living Situation & Occupation Living situation: Reports: Occupation: Retired ED ROS GENERAL - Review of Systems Review Of Systems: See Below Constitutional: Reports: No Symptoms HEENT: Reports: No Symptoms Respiratory: Reports: No Symptoms Cardiovascular: Reports: No Symptoms Endocrine: Reports: No Symptoms GI/Abdominal: Reports: No Symptoms : Reports: No Symptoms Musculoskeletal: Reports: Back Pain, Muscle Stiffness Skin: Reports: No Symptoms Neurological: Reports: No Symptoms Psychiatric: Reports: No Symptoms ED EXAM,LOWER BACK PAIN/INJURY - Physical Exam Exam: See Below Exam Limited By: No Limitations General Appearance: Alert, No Apparent Distress Ears: Normal External Exam, Normal Canal Nose: Normal Inspection, Normal Mucosa Throat/Mouth: Normal Inspection Head: Atraumatic, Normocephalic Neck: Normal Inspection, Supple, Non-Tender, Full Range of Motion Respiratory/Chest: No Respiratory Distress, Lungs Clear, Normal Breath Sounds, No Accessory Muscle Use Cardiovascular: Normal Peripheral Pulses, Regular Rate, Rhythm, No Edema, No Gallop, No JVD, No Murmur, No Rub GI/Abdominal: Normal Bowel Sounds, Soft, Non-Tender Back Exam: Normal Inspection, Muscle Spasm, Vertebral Tenderness Extremities: Normal Inspection, Normal Range of Motion Neurological: Alert Course - Vital Signs Text/Narrative:: Toradol 15 mg IV Dialudid 2 mg IV x1 Tizanidine 4 mg po x1 Last Recorded V/S: Last Vital Signs Temp 36.6 C 12/25/20 07:00 Pulse 71 12/25/20 07:00 Resp 18 12/25/20 07:00 BP 114/60 12/25/20 07:00 Pulse Ox 93 L 12/25/20 07:00 - Orders/Labs/Meds Orders: Medication Orders Acetaminophen (Acetaminophen 650 Mg Tab.Er) 650 mg PO Q8H [facility] Last Admin: 12/25/20 02:51 Dose: Not Given Documented by: MERCEDES Hydrocodone Bitart/Acetaminophen (Acetaminophen/Hydrocodone 325-5 Mg Tab) 1 tab PO Q6H PRN PRN Reason: SEVERE PAIN Allopurinol (Allopurinol 300 Mg Tab) 300 mg PO DAILY [facility] Aspirin (Aspirin 81 Mg Tab.Ec) 81 mg PO BEDTIME [facility] Bisacodyl (Bisacodyl 5 Mg Tab) 5 mg PO DAILY PRN PRN Reason: Constipation Enoxaparin Sodium (Enoxaparin 40 Mg/0.4 Ml Syringe) 40 mg SUBCUT Q24H [facility] Ferrous Sulfate (Ferrous Sulfate 325 Mg Tab) 325 mg PO DAILY [facility] Furosemide (Furosemide 80 Mg Tab) 80 mg PO DAILY [facility] Hydromorphone HCl (Hydromorphone 2 Mg/Ml Sdv) 2 mg IVPUSH Q4H PRN PRN Reason: Pain Last Admin: 12/25/20 02:13 Dose: 2 mg Documented by: MERCEDES Ketorolac Tromethamine (Ketorolac 30 Mg/Ml Sdv) 15 mg IVPUSH Q6H PRN PRN Reason: Pain (moderate 4-6) Stop: 12/30/20 07:43 Magnesium Hydroxide (Magnesium Hydroxide 400 Mg/5 Ml Susp 30 Ml Cup) 30 ml PO BID PRN PRN Reason: Constipation Metformin HCl (Metformin 500 Mg Tab) 500 mg PO BIDMEALS [facility] Metolazone (Metolazone 2.5 Mg Tab) 2.5 mg PO MOWEFR [facility] Non-Formulary Medication (Cholecalciferol (Vitamin D3) [Vitamin D3]) 2,000 unit PO DAILY [facility] Non-Formulary Medication (Multivit-Min/Iron/Folic/Lutein [Centrum Silver Women Tablet]) 1 tab PO DAILY [facility] Polyethylene Glycol (Polyethylene Glycol 3350 Powder 17 Gm Packet) 17 gm PO DAILY [facility] Senna/Docusate Sodium (Docusate Sodium/Sennosides 50-8.6 Mg Tab) 1 tab PO BID [facility] Tizanidine HCl (Tizanidine 4 Mg Tab) 4 mg PO Q6H PRN PRN Reason: Spasms Meds: Medications Generic Name Dose Route Start Last Admin Trade Name Freq PRN Reason Stop Dose Admin Acetaminophen 650 mg 12/25/20 01:30 12/25/20 02:51 Acetaminophen 650 Mg Tab.Er PO Not Given Q8H [facility] Hydrocodone Bitart/Acetaminophen 1 tab 12/25/20 01:19 Acetaminophen/Hydrocodone 325-5 Mg Tab PO Q6H PRN SEVERE PAIN Allopurinol 300 mg 12/25/20 09:00 Allopurinol 300 Mg Tab PO DAILY [facility] Aspirin 81 mg 12/25/20 21:00 Aspirin 81 Mg Tab.Ec PO BEDTIME [facility] Bisacodyl 5 mg 12/25/20 07:50 Bisacodyl 5 Mg Tab PO DAILY PRN Constipation Enoxaparin Sodium 40 mg 12/25/20 09:00 Enoxaparin 40 Mg/0.4 Ml Syringe SUBCUT Q24H [facility] Ferrous Sulfate 325 mg 12/25/20 09:00 Ferrous Sulfate 325 Mg Tab PO DAILY [facility] Furosemide 80 mg 12/25/20 09:00 Furosemide 80 Mg Tab PO DAILY [facility] Hydromorphone HCl 2 mg 12/25/20 01:18 12/25/20 02:13 Hydromorphone 2 Mg/Ml Sdv IVPUSH 2 mg Q4H PRN Administration Pain Ketorolac Tromethamine 15 mg 12/25/20 07:43 Ketorolac 30 Mg/Ml Sdv IVPUSH 12/30/20 07:43 Q6H PRN Pain (moderate 4-6) Magnesium Hydroxide 30 ml 12/25/20 01:08 Magnesium Hydroxide 400 Mg/5 Ml Susp 30 Ml Cup PO BID PRN Constipation Metformin HCl 500 mg 12/25/20 08:00 Metformin 500 Mg Tab PO BIDMEALS [facility] Metolazone 2.5 mg 12/26/20 01:19 Metolazone 2.5 Mg Tab PO MOWEFR [facility] Non-Formulary Medication 2,000 unit 12/25/20 09:00 Cholecalciferol (Vitamin D3) [Vitamin D3] PO DAILY [facility] Non-Formulary Medication 1 tab 12/25/20 09:00 Multivit-Min/Iron/Folic/Lutein [Centrum Silver Women Tablet] PO DAILY [facility] Polyethylene Glycol 17 gm 12/25/20 01:30 Polyethylene Glycol 3350 Powder 17 Gm Packet PO DAILY [facility] Senna/Docusate Sodium 1 tab 12/25/20 09:00 Docusate Sodium/Sennosides 50-8.6 Mg Tab PO BID [facility] Tizanidine HCl 4 mg 12/25/20 01:18 Tizanidine 4 Mg Tab PO Q6H PRN Spasms Discontinued Medications Generic Name Dose Route Start Last Admin Trade Name Freq PRN Reason Stop Dose Admin Enoxaparin Sodium 40 mg 12/25/20 04:00 12/25/20 06:28 Enoxaparin 40 Mg/0.4 Ml Syringe SUBCUT Not Given Q24H [facility] Hydromorphone HCl 1 mg 12/24/20 23:11 12/24/20 23:40 Hydromorphone 2 Mg/Ml Sdv IVPUSH 12/24/20 23:12 1 mg NOW STA Administration Ibuprofen 200 mg 12/25/20 01:30 12/25/20 02:11 Ibuprofen 200 Mg Tab PO Not Given Q4H [facility] Ketorolac Tromethamine 15 mg 12/24/20 23:11 12/24/20 23:41 Ketorolac 30 Mg/Ml Sdv IVPUSH 12/24/20 23:12 15 mg ONETIME ONE Administration Non-Formulary Medication 1,000 mg 12/25/20 01:19 Amoxicillin [Amoxicillin] PO ASDIRECTED PRN DENTAL APPT Senna/Docusate Sodium 2 tab 12/25/20 01:08 Docusate Sodium/Sennosides 50-8.6 Mg Tab PO DAILY PRN Constipation Tizanidine HCl 4 mg 12/24/20 23:11 12/25/20 00:18 Tizanidine 4 Mg Tab PO 12/24/20 23:12 4 mg NOW STA Administration Departure - Departure Time of Disposition: 00:30 Disposition: Refer to Observation Condition: Good Clinical Impression: Low back pain, DDD (degenerative disc disease), Spinal stenosis - Discharge Information Sepsis Event Note (ED) - Focused Exam Vital Signs: Vital Signs Temp Pulse Resp BP Pulse Ox 12/25/20 00:00 62 16 132/79 95 12/24/20 22:57 36.6 C 85 18 162/67 H 94 L
[2020-12-25] MEDS: Ibuprofen 200 MG Tab PO SCH ×2 (02:11→13:39)
[2020-12-25] MEDS: Acetaminophen 650 MG Tab.ER PO SCH ×2 (02:51→13:39)
[2020-12-25] MEDS ORDERED: Enoxaparin 40 MG/0.4 ML Syringe SUBCUT SCH ×2 (04:00→09:00)
[2020-12-25] MEDS ORDERED: Ketorolac 30 MG/ML SDV IVPUSH PRN (07:43)
[2020-12-25] MEDS ORDERED: Bisacodyl 5 MG Tab PO PRN (07:50)
[2020-12-25] MEDS ORDERED: Diazepam 5 MG Tab PO ONE (08:58)
[2020-12-25] MEDS ORDERED: CHOLECALCIFEROL 2000 UNIT PO SCH (09:00)
[2020-12-25] MEDS ORDERED: Acetaminophen 650 MG Tab.ER PO SCH (10:00)
[2020-12-25] MEDS ORDERED: MULTIVITAMIN WITH MINERALS PO SCH (10:30)
[2020-12-25] MEDS ORDERED: Furosemide 80 MG Tab *PTOM PO SCH (10:30)
[2020-12-25] MEDS ORDERED: Polyethylene Glycol 3350 Powder 17 GM Packet PO SCH (10:30)
[2020-12-25] MEDS ORDERED: Allopurinol 300 MG Tab *PTOM PO SCH (10:30)
[2020-12-25] MEDS ORDERED: metFORMIN 500 MG Tab *PTOM PO SCH (10:30)
[2020-12-25] MEDS ORDERED: Dexamethasone 4 MG Tab PO ONE (13:30)
--- NOTE | 2020-12-25 14:00 | PCM.HP.2 ---
H&P History of Present Illness - General Date of Service: 12/25/20 Admit Problem/Dx: Admission Diagnosis/Problem Admission Diagnosis/Problem Low back pain Source of Information: Patient, EMS Notes Reviewed, Old Records - History of Present Illness Initial Comments - Free Text/Narative: Tali presented last night with worsening back pain with radicular pain down both legs not present on discharge from observation on Thursday 12/21. She had been taking her medications over the weekend and had progressive worsening of pain, difficult to sit in chair or toilet. Radiates to her calves but not to her toes. Denies any night sweats, fevers or chills. Has had intentional weight loss over the past year was over 300 lbs last year. Positive history of breast cancer, had lumpectomy, colon cancer and uterine cancer 2020. She had history of cervical herniated disc, responded to SHERON in 2008, did not require surgery. Treated with only on SHERON injection. Denies any bowel or bladder incontinence. She had sustained fall on 12/10, did not have pain at the time, declined evaluation that day. Saw Dr Yost the following Thursday, started on Celebrex and continued her Tylenol ER, Hydrocodone/APAP, pain worsened, seen in ER on 12/[address] showed degenerative changes of lumbar spine & spinal st enosis, no fractures noted. Discharged home with pain medications. Returned to ER on 12/20 admitted for observation for pain control: received Dilaudid in ER but did not require any Morphine or Hydrocodone during hospitalization. Pain controlled with IV Toradol & Tylenol. Received Prednisone 40 mg in ER. Discharged home on 12/21 with home health with PT/OT services. Tylenol & Ibuprofen scheduled with Hydrocodone/APAP as needed. Pain worsened over the weekend, patient was taking her medications. Followed up with Dr Yost yesterday, prescribed Dilaudid script sent, picked up. Presented to ER last night around 1 am due to intractable pain. lowback Pain Score (Numeric/FACES): 0 - Related Data Allergies/Adverse Reactions: Allergies Allergy/AdvReac Type Severity Reaction Status Date / Time cephalexin [From Keflex] Allergy Hives Verified 12/25/20 03:39 oxycodone [From Tylox] Allergy Shortness Verified 12/25/20 03:39 of Breath Home Medications: Home Meds Multivit-Min/Iron/Folic/Lutein [Centrum Silver Women Tablet] 1 tab PO DAILY 10/16/19 [History] Potassium Chloride [Klor-Con M20] 60 meq PO BID 10/16/19 [History] Simvastatin 40 mg PO BEDTIME 10/16/19 [History] allopurinoL [Zyloprim] 300 mg PO DAILY 10/16/19 [History] metOLazone [Metolazone] 2.5 mg PO MOWEFR 10/16/19 [History] polyethylene glycoL 3350 [MiraLAX] 17 gm PO DAILY PRN 10/16/19 [History] Ferrous Sulfate 325 mg PO DAILY 10/17/19 [History] Furosemide 80 mg PO DAILY 07/23/20 [History] Amoxicillin 1,000 mg PO ASDIRECTED PRN 12/20/20 [History] Aspirin [Halfprin] 81 mg PO BEDTIME 12/20/20 [History] Cholecalciferol (Vitamin D3) [Vitamin D3] 2,000 unit PO DAILY 12/20/20 [History] Nystatin [Nystatin Crm] 1 applic TOP TID PRN 12/20/20 [History] PEG 400/Propylene Glycol [Systane Lubricant] 1 drop EYEBOTH Q4H PRN 12/20/20 [History] metFORMIN [Glucophage] 500 mg PO BIDMEALS 12/20/20 [History] Acetaminophen [Tylenol Arthritis Pain] 650 mg PO Q8H #0 tab.er 12/21/20 [Rx] Acetaminophen/HYDROcodone [[place] 325-5 MG] 1 tab PO Q6H PRN 3 Days #12 tablet 12/21/20 [Rx] Ibuprofen 200 mg PO Q4H 14 Days #84 tablet 12/21/20 [Rx] Past Medical History Cardiovascular History: Reports: Heart Murmur, High Cholesterol, Other (See Below) Other Cardiovascular History: cardiolyte stress test positive but angiogram that followed was negative. Genitourinary History: Reports: Urinary Incontinence [employer]ENTICE History: Reports: Dysfunctional Uterine Bleeding, Other OB/BYN History: Musculoskeletal History: Reports: Arthritis, Fracture, Gout, Other (See Below) Other Musculoskeletal History: Lymphedema, back compression fracture. Neurological History: Reports: Neuropathy, Diabetic, Neuropathy, Peripheral Endocrine/Metabolic History: Reports: Diabetes, Type II, Hypothyroidism, Obesity/BMI 30+ Hematologic History: Reports: Blood Transfusion(s), Iron Deficiency Oncologic (Cancer) History: Reports: Breast, Colon, Uterine - Infectious Disease History Infectious Disease History: Reports: Chicken Pox, Measles, Mumps, Shingles - Past Surgical History HEENT Surgical History: Reports: Eye Surgery, Tonsillectomy Other HEENT Surgeries/Procedures: bilat cataract, thyroidectomy. Sees best with left eye. Other Cardiovascular Surgeries/Procedures: angiogram [place] 10-15yrs ago GI Surgical History: Reports: Colon, Colonoscopy Female Surgical History: Reports: Hysterectomy Other Female Surgeries/Procedures: ovarian cyst Endocrine Surgical History: Reports: Thyroidectomy Musculoskeletal Surgical History: Reports: Knee Replacement Other Musculoskeletal Surgeries/Procedures:: bilat knee replacement Oncologic Surgical History: Reports: Other (See Below) Other Oncologic Surgeries/Procedures: colon resection, bilat mastectomy, hysterectomy for uterine cancer Social & Family History - Family History Family Medical History: No Pertinent Family History - Tobacco Use Tobacco Use Status *Q: Never Tobacco User Second Hand Smoke Exposure: No - Caffeine Use Caffeine Use: Reports: Coffee, Soda Caffeine Use Comment: 2 cups of each per day - Recreational Drug Use Recreational Drug Use: No - Living Situation & Occupation Living situation: Reports: Occupation: Retired H&P Review of Systems - Review of Systems: Review Of Systems: See Below General: Reports: Weight Loss. Denies: Fever, Chills, Night Sweats HEENT: Reports: No Symptoms Pulmonary: Reports: No Symptoms Cardiovascular: Reports: No Symptoms Gastrointestinal: Reports: No Symptoms Genitourinary: Denies: Dysuria, Frequency, Urgency, Incontinence, Retention Musculoskeletal: Reports: Back Pain, Leg Pain (radiates down both legs) Skin: Reports: No Symptoms Psychiatric: Reports: No Symptoms Neurological: Reports: No Symptoms Hematologic/Lymphatic: Reports: No Symptoms Exam - Exam Exam: See Below - Vital Signs Vital Signs: Last Vital Signs Temp 97.7 F 12/25/20 11:00 Pulse 71 12/25/20 11:00 Resp 18 12/25/20 11:00 BP 111/48 L 12/25/20 11:00 Pulse Ox 96 12/25/20 11:00 Weight: 283 lb - Exam General: Alert, Oriented, Cooperative, Mild Distress HEENT: PERRLA, Conjunctiva Clear, EOMI, Hearing Intact, Mucosa Moist & [place] Neck: Trachea Midline Lungs: Clear to Auscultation, Normal Respiratory Effort Cardiovascular: Regular Rate, Regular Rhythm GI/Abdominal Exam: Normal Bowel Sounds, Soft, Non-Tender, Distended (obese) (Female) Exam: Deferred Rectal (Female) Exam: Deferred Back Exam: Normal Inspection Extremities: No Pedal Edema, Leg Pain (Straight leg positive on right, negative on left) Peripheral Pulses: 2+: Radial (L), Radial (R) Skin: Warm, Dry, Intact Neurological: Cranial Nerves Intact, Normal Speech, Normal Tone, Sensation Intact - Patient Data Lab Results Last 24 hrs: Laboratory Results - last 24 hr 12/25/20 12/25/20 12/25/20 Range/Units 01:22 06:20 06:20 WBC 5.5 (3.0-10.3) x10-3/uL RBC 3.19 L (3.60-5.20) x10(6)uL Hgb 11.2 L (11.4-15.5) g/dL Hct 31.6 L (34.2-48.2) % MCV 99.0 (76.7-100.5) fL MCH 35.1 H (23.9-33.9) pg MCHC 35.4 H (31.9-34.8) g/dL RDW 15.0 (12.3-16.5) % Plt Count 252 (151-488) x10(3)uL MPV 9.3 (7.1-12.4) fL Neut % (Auto) 68.8 (30.8-76.2) % Lymph % (Auto) 15.8 L (18.4-52.1) % [place] % (Auto) 8.5 (4.4-15.7) % Eos % (Auto) 5.6 (0.6-8.1) % Baso % (Auto) 1.3 (0.2-1.5) % Neut # (Auto) 3.8 (1.5-6.3) x10-3/uL Lymph # (Auto) 0.9 L (1.0-4.4) x10-3/uL [place] # (Auto) 0.5 (0.3-1.0) x10-3/uL Eos # (Auto) 0.3 (0.0-0.8) x10-3/uL Baso # (Auto) 0.1 (0.0-0.1) x10-3/uL Sodium 142 (135-145) mmol/L Potassium 4.2 (3.5-5.3) mmol/L Chloride 103 (100-110) mmol/L Carbon Dioxide 33 H (21-32) mmol/L BUN 16 D (7-18) mg/dL Creatinine 0.9 (0.55-1.02) mg/dL Est Cr Clr Drug Dosing 45.89 mL/min Estimated GFR (MDRD) > 60 (>60) BUN/Creatinine Ratio 17.8 (9-20) Glucose 120 H (80-116) mg/dL Calcium 8.8 (8.6-10.2) mg/dL SARS-CoV-2 RNA (LAXMI) Negative (NEGATIVE) Result Diagrams: 12/25/20 06:20 12/25/20 06:20 Imaging Impressions Last 24 hrs: MRI Lumbar without contrast: Aggressive appearing lesion involving the S1 & S2 segments with ventral epidural soft tissue component causing sever canal & right subarticular recess stenosis. Differential includes metastatic disease & primary neoplasm such as sarcoma. Hematology oncology consultation recommended. Sepsis Event Note - Evaluation Sepsis Screening Result: No Definite Risk - Focused Exam Vital Signs: Vital Signs Temp Pulse Resp BP Pulse Ox 12/25/20 11:00 97.7 F 71 18 111/48 L 96 12/25/20 07:00 97.9 F 71 18 114/60 93 L 12/25/20 03:00 97.8 F 71 17 106/53 L 94 L 12/25/20 02:35 68 15 87/44 L 95 *Q Meaningful Use (ADM) - VTE *Q VTE Mechanical Contraindications *Q: At Risk for Falls - VTE Risk Assess *Q Each Risk Factor Represents 1 Point: Obesity ( BMI > 25 kg/m2) Total Score 1 Point Risk Factors: 1 Each Risk Factor Represents 2 Points: Malignancy (present or previous) Total Score 2 Point Risk Factors: 2 Each Risk Factor Represents 3 Points: Age 75 Years or Greater Total Score 3 Point Risk Factors: 3 Each Risk Factor Represents 5 Points: None Total Score 5 Point Risk Factors: 0 Venous Thromboembolism Risk Factor Score *Q: 6 - Problem List (1) Pathological fracture of sacral vertebra SNOMED Code(s): 23717306484056014 ICD Code: M84.48XA - PATHOLOGICAL FRACTURE, OTHER SITE, INIT ENCNTR FOR FRACTURE Status: Acute Current Visit: Yes Problem Details: MRI Lumbar without contrast: Aggressive appearing lesion involving the S1 & S2 segments with ventral epidural soft tissue component causing sever canal & right subarticular recess stenosis. Differential includes metastatic disease & primary neoplasm such as sarcoma. Hematology oncology consultation recommended. (2) Sacral lesion SNOMED Code(s): 62172408 ICD Code: M53.3 - SACROCOCCYGEAL DISORDERS, NOT ELSEWHERE CLASSIFIED Status: Acute Current Visit: Yes (3) Spinal stenosis SNOMED Code(s): 63898211 ICD Code: M48.00 - SPINAL STENOSIS, SITE UNSPECIFIED Status: Chronic Current Visit: Yes (4) Acute low back pain SNOMED Code(s): 368151323 ICD Code: M54.5 - LOW BACK PAIN Status: Acute Current Visit: No Onset Date: ~12/10/20 Qualifiers: Back pain laterality: right Sciatica presence: without sciatica Qualified Code(s): M54.5 - Low back pain (5) History of breast cancer SNOMED Code(s): 736073445 ICD Code: Z85.3 - PERSONAL HISTORY OF MALIGNANT NEOPLASM OF BREAST Status: Chronic Current Visit: No (6) History of colon cancer SNOMED Code(s): 003577682 ICD Code: Z85.038 - PERSONAL HISTORY OF MALIGNANT NEOPLASM OF LARGE INTESTINE Status: Acute Current Visit: No (7) HLD (hyperlipidemia) SNOMED Code(s): 15681170 ICD Code: E78.5 - HYPERLIPIDEMIA, UNSPECIFIED Status: Chronic Current Visit: No (8) History of uterine cancer SNOMED Code(s): 368981144 ICD Code: Z85.42 - PERSONAL HISTORY OF MALIGNANT NEOPLASM OF OTH PRT UTERUS Status: Chronic Current Visit: No (9) Diabetes type 2, controlled SNOMED Code(s): 13865622, 262166144 ICD Code: E11.9 - TYPE 2 DIABETES MELLITUS WITHOUT COMPLICATIONS Status: Chronic Current Visit: No (10) Obesity SNOMED Code(s): 582418680, 365746264 ICD Code: E66.9 - OBESITY, UNSPECIFIED Status: Chronic Current Visit: No Qualifiers: Body mass index: BMI 45.0-49.9 (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 SNOMED Code(s): 548835607 ICD Code: G62.0 - DRUG-INDUCED POLYNEUROPATHY; T45.1X5A - ADVERSE EFFECT OF ANTINEOPLASTIC AND IMMUNOSUP DRUGS, INIT Status: Chronic Current Visit: No Problem List Initiated/Reviewed/Updated: Yes Orders Last 24hrs: Active Orders 24 hr Category Date Time Status Patient Status [ADT] Routine ADT 12/25/20 01:08 Active Antiembolic Devices [RC] .Routine Care 12/25/20 01:09 Active Oxygen Therapy [RC] PRN Care 12/25/20 01:12 Active Pulse Oximetry [RC] PRN Care 12/25/20 01:08 Active Up With Assistance [RC] ASDIRECTED Care 12/25/20 01:08 Active VTE/DVT Education [RC] Click to Edit Care 12/25/20 01:09 Active Vital Signs [RC] Q4H Care 12/25/20 01:08 Active OT Evaluation and Treatment [CONS] Routine Cons 12/25/20 07:45 Active PT Evaluation and Treatment [CONS] Routine Cons 12/25/20 07:44 Active Heart Healthy Diet [DIET] Diet 12/25/20 Breakfast Ordered Lumbar Spine Comp wo Cont [MR] Routine Exams 12/25/20 08:59 Taken Acetaminophen [Tylenol Arthritis Pain] Med 12/25/20 10:00 Active 650 mg PO Q8H Acetaminophen/HYDROcodone [[place] 325-5 MG] Med 12/25/20 01:19 Active 1 tab PO Q6H PRN Aspirin [Halfprin] Med 12/25/20 21:00 Active 81 mg PO BEDTIME Cholecalciferol (Vitamin D3) [Vitamin D3] Med 12/25/20 09:00 Active 2,000 unit PO DAILY Docusate Sodium/Sennosides [Senna Plus] Med 12/25/20 09:00 Active 1 tab PO BID Enoxaparin [Lovenox] Med 12/25/20 09:00 Active 40 mg SUBCUT Q24H Ferrous Sulfate Med 12/25/20 10:30 Active 325 mg PO DAILY Furosemide [Lasix] Med 12/25/20 10:30 Active 80 mg PO DAILY HYDROmorphone [Dilaudid] Med 12/25/20 01:18 Active 2 mg IVPUSH Q4H PRN Ketorolac [Toradol] Med 12/25/20 07:43 Active 15 mg IVPUSH Q6H PRN Magnesium Hydroxide [Milk of Magnesia] Med 12/25/20 01:08 Active 30 ml PO BID PRN Multivitamins w-Iron/Ca/FA/Min [Thera M Plus] Med 12/25/20 10:30 Active 1 tab PO DAILY allopurinoL [Zyloprim] Med 12/25/20 10:30 Active 300 mg PO DAILY bisacodyL [Dulcolax] Med 12/25/20 07:50 Active 5 mg PO DAILY PRN metFORMIN [Glucophage] Med 12/25/20 10:30 Active 500 mg PO BIDMEALS metOLazone [Zaroxolyn] Med 12/26/20 08:00 Active 2.5 mg PO MoWeFr@0800 polyethylene glycoL 3350 [MiraLAX] Med 12/25/20 10:30 Active 17 gm PO DAILY tiZANidine [Zanaflex] Med 12/25/20 01:18 Active 4 mg PO Q6H PRN DVT/VTE Prophylaxis Reflex [OM.PC] Per Unit Routine Oth 12/25/20 01:08 Ordered Sequential Compression Device [OM.PC] Stat Oth 12/25/20 01:08 Ordered Resuscitation Status Routine Resus Stat 12/25/20 01:08 Ordered Medication Orders Acetaminophen (Acetaminophen 650 Mg Tab.Er) 650 mg PO Q8H [facility] Last Admin: 12/25/20 13:32 Dose: 650 mg Documented by: ANDRES Hydrocodone Bitart/Acetaminophen (Acetaminophen/Hydrocodone 325-5 Mg Tab) 1 tab PO Q6H PRN PRN Reason: MODERATE PAIN Last Admin: 12/25/20 10:40 Dose: 1 tab Documented by: NKECHI Allopurinol (Allopurinol 300 Mg Tab *Ptom) 300 mg PO DAILY [facility] Last Admin: 12/25/20 13:34 Dose: 300 mg Documented by: ANDRES Aspirin (Aspirin 81 Mg Tab.Ec *Ptom) 81 mg PO BEDTIME [facility] Bisacodyl (Bisacodyl 5 Mg Tab) 5 mg PO DAILY PRN PRN Reason: Constipation Enoxaparin Sodium (Enoxaparin 40 Mg/0.4 Ml Syringe) 40 mg SUBCUT Q24H [facility] Last Admin: 12/25/20 09:05 Dose: 40 mg Documented by: ANDRES Ferrous Sulfate (Ferrous Sulfate 325 Mg Tab *Ptom) 325 mg PO DAILY [facility] Last Admin: 12/25/20 13:32 Dose: 325 mg Documented by: ANDRES Furosemide (Furosemide 80 Mg Tab *Ptom) 80 mg PO DAILY [facility] Last Admin: 12/25/20 13:33 Dose: 80 mg Documented by: ANDRES Hydromorphone HCl (Hydromorphone 2 Mg/Ml Sdv) 2 mg IVPUSH Q4H PRN PRN Reason: SEVERE Pain Last Admin: 12/25/20 02:13 Dose: 2 mg Documented by: MERCEDES Ketorolac Tromethamine (Ketorolac 30 Mg/Ml Sdv) 15 mg IVPUSH Q6H PRN PRN Reason: Pain (moderate 4-6) Stop: 12/30/20 07:43 Magnesium Hydroxide (Magnesium Hydroxide 400 Mg/5 Ml Susp 30 Ml Cup) 30 ml PO BID PRN PRN Reason: Constipation Metformin HCl (Metformin 500 Mg Tab *Ptom) 500 mg PO BIDMEALS [facility] Last Admin: 12/25/20 13:36 Dose: 500 mg Documented by: ANDRES Metolazone (Metolazone 2.5 Mg Tab *Ptom) 2.5 mg PO MoWeFr@0800 [facility] Multivitamins/Minerals (Multivitamin With Minerals *Ptom) 1 tab PO DAILY [facility] Last Admin: 12/25/20 13:33 Dose: 1 tab Documented by: ANDRES (Cholecalciferol ( Vitamin D3) [Vitamin D3] 2,000 Unit Cap) *Ptom 2,000 unit PO DAILY [facility] Last Admin: 12/25/20 13:30 Dose: 2,000 unit Documented by: ANDRES Polyethylene Glycol (Polyethylene Glycol 3350 Powder 17 Gm Packet) 17 gm PO DAILY [facility] Last Admin: 12/25/20 13:33 Dose: 17 gm Documented by: ANDRES Senna/Docusate Sodium (Docusate Sodium/Sennosides 50-8.6 Mg Tab) 1 tab PO BID [facility] Last Admin: 12/25/20 13:31 Dose: 1 tab Documented by: ANDRES Tizanidine HCl (Tizanidine 4 Mg Tab) 4 mg PO Q6H PRN PRN Reason: Spasms Assessment/Plan Comment:: 1. Admitted for observation for intractable back pain, progressively worsening. 2. Acute low back pain: MRI lumbar spine ordered today premedicated with Valium 5 mg 1 hour prior to procedure. Toradol 15 mg IV q6h, Tylenol and Dilaudid IV 2 mg as needed severe pain, Hydrocodone/APAP 5/325 mg po q4h as needed moderate pain. MiraLax, Senna, Dulcolax for bowel regiment. 3. DM: Continue Metformin 500 mg bid. 4. Diet: Heart Healthy Diet. 5. Activity: up with assistance. 6. DVT prophylaxis: Lovenox daily 7. CODE STATUS: FULL. 8. This note also serves as DISCHARGE SUMMARY. MRI lumbar spine without contrast showed: Aggressive appearing lesion involving the S1 & S2 segments with ventral epidural soft tissue component causing sever canal & right subarticular recess stenosis. Differential includes metastatic disease & primary neoplasm such as sarcoma. Hematology oncology consultation recommended. Spoke with her oncologist: Dr Miranda at [place], he accepted Tali as direct admission to [facility]. Dexamethasone 4 mg x 1 given. Will give pain medication prior to transport. Will go by ground ambulance. COVID negative 12/25 0122. Tali is in agreement with transfer for higher level of care: heme/onco services. - Mortality Measure Prognosis:: Poor
[2020-12-25] MEDS ORDERED: Aspirin 81 MG Tab.EC *PTOM PO SCH (21:00)
[2020-12-26] MEDS ORDERED: Metolazone 2.5 MG Tab *PTOM PO SCH (08:00)
== END 2020-12-25 15:00 ==
LOC: FB.ED 22:52 → FB.MS 12-25 01:08
PROVIDERS: ADMIT Emergency Medicine; ATTEND Family Medicine
DX: M53.3 Sacrococcygeal disorders, not elsewhere classified (principal); M48.00 Spinal stenosis, site unspecified; E78.5 Hyperlipidemia, unspecified; E11.9 Type 2 diabetes mellitus without complications; E66.9 Obesity, unspecified; G62.0 Drug-induced polyneuropathy; Z20.822 Contact with and (suspected) exposure to COVID-19; Z98.890 Other specified postprocedural states; Z85.038 Personal history of other malignant neoplasm of large intestine; Z85.42 Personal history of malignant neoplasm of other parts of uterus; Z68.42 Body mass index [BMI] 45.0-49.9, adult; T45.1X5A Adverse effect of antineoplastic and immunosuppressive drugs, initial encounter; Z79.84 Long term (current) use of oral hypoglycemic drugs; Z79.899 Other long term (current) drug therapy
CPT/HCPCS: 36415; 72148; 80048; 85025; 96372; 96374; 96375; 96376; 99284; 99285-25; A9270-GY; G0378; J1170; J1650; J1885; J8540; U0002

== ENCOUNTER 2021-01-08 08:09 | Inpatient (IN) | payer MEDICARE, BC ==
[2021-01-08] MEDS ORDERED: Nystatin Crm 30 GM Tube TOP PRN (16:13)
[2021-01-08] MEDS ORDERED: traZODone 50 MG Tab PO PRN (16:13)
[2021-01-08] MEDS ORDERED: Polyethylene Glycol 3350 Powder 17 GM Packet PO PRN (16:13)
[2021-01-08] MEDS ORDERED: PEG 400/Propylene Glycol Ophth Soln 15 ML Bottle EYEBOTH PRN (16:13)
[2021-01-08] MEDS ORDERED: Acetaminophen 650 MG Tab.ER PO PRN (16:13)
[2021-01-08] MEDS ORDERED: Naloxone 0.4 MG/ML SDV IV PRN (16:45)
[2021-01-08] MEDS: metFORMIN 500 MG Tab PO SCH (17:59)
[2021-01-08] MEDS: Potassium Chloride 20 MEQ Packet PO SCH ×2 (17:59→21:20)
[2021-01-08] MEDS: Megestrol Susp 40 MG/ML ML (240 ML Bottle) PO SCH ×2 (17:59→21:21)
[2021-01-08] MEDS: Insulin Lispro 100 Unit/ML 3 ML KwikPen SUBCUT SCH (18:00)
--- NOTE | 2021-01-08 18:19 | PCM.HP.2 ---
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, pain, bilateral lower extremity weakness Onset of Symptoms: Reports: Gradual Left Hip Pain Score (Numeric/FACES): 3 - Related Data Allergies/Adverse Reactions: Allergies Allergy/AdvReac Type Severity Reaction Status Date / Time cephalexin [From Keflex] Allergy Hives Verified 01/08/21 16:06 oxycodone [From Tylox] Allergy Shortness Verified 01/08/21 16:06 of Breath Home Medications: Home Meds Multivit-Min/Iron/Folic/Lutein [Centrum Silver Women Tablet] 1 tab PO DAILY 10/16/19 [History] Simvastatin 40 mg PO BEDTIME 10/16/19 [History] allopurinoL [Zyloprim] 300 mg PO DAILY 10/16/19 [History] metOLazone [Metolazone] 2.5 mg PO MOWEFR@0800 10/16/19 [History] polyethylene glycoL 3350 [MiraLAX] 17 gm PO DAILY PRN 10/16/19 [History] Ferrous Sulfate 325 mg PO DAILY 10/17/19 [History] Furosemide 80 mg PO DAILY 07/23/20 [History] Aspirin [Halfprin] 81 mg PO BEDTIME 12/20/20 [History] Cholecalciferol (Vitamin D3) [Vitamin D3] 2,000 unit PO DAILY 12/20/20 [History] Nystatin [Nystatin Crm] 1 applic TOP TID PRN 12/20/20 [History] PEG 400/Propylene Glycol [Systane Lubricant] 1 drop EYEBOTH Q4H PRN 12/20/20 [History] metFORMIN [Glucophage] 500 mg PO BIDMEALS 12/20/20 [History] Enoxaparin [Lovenox] 40 mg SUBCUT Q24H syringe 12/25/20 [Rx] Acetaminophen [Tylenol Arthritis Pain] 650 mg PO Q8H PRN 01/08/21 [History] Celecoxib [CeleBREX] 200 mg PO BID 01/08/21 [History] HYDROmorphone [Dilaudid] 2 mg PO TID PRN 01/08/21 [History] Insulin Aspart [NovoLOG] 2 - 8 unit SQ WITHMEALSANDBED 01/08/21 [History] Magnesium Chloride [Mag Delay] 64 mg PO DAILY 01/08/21 [History] Megestrol [Megace] 80 mg PO QID 01/08/21 [History] Naloxone HCl [Narcan] 4 mg NS ASDIRECTED 01/08/21 [History] Potassium Chloride 40 meq PO QID 01/08/21 [History] fentaNYL [Fentanyl] 25 mcg TD Q72H 01/08/21 [History] traZODone 50 mg PO BEDTIME PRN 01/08/21 [History] Past Medical History Cardiovascular History: Reports: Heart Murmur, High Cholesterol, Other (See Below) Other Cardiovascular History: cardiolyte stress test positive but angiogram that followed was negative. 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 Neurological History: Reports: Neuropathy, Diabetic, Neuropathy, Peripheral Endocrine/Metabolic History: Reports: Diabetes, Type II, Hypothyroidism, O besity/BMI 30+ Hematologic History: Reports: Blood Transfusion(s), Iron Deficiency Oncologic (Cancer) History: Reports: Breast, Colon, Uterine - Infectious Disease History Infectious Disease History: Reports: Chicken Pox, Measles, Mumps, Shingles - Past Surgical History HEENT Surgical History: Reports: Eye Surgery, Tonsillectomy Other HEENT Surgeries/Procedures: bilat cataract, thyroidectomy. Sees best with left eye. Other Cardiovascular Surgeries/Procedures: angiogram [place] 10-15yrs ago GI Surgical History: Reports: Colon, Colonoscopy Female Surgical History: Reports: Hysterectomy Other Female Surgeries/Procedures: ovarian cyst Endocrine Surgical History: Reports: Thyroidectomy Musculoskeletal Surgical History: Reports: Knee Replacement Other Musculoskeletal Surgeries/Procedures:: bilat knee replacement Oncologic Surgical History: Reports: Other (See Below) Other Oncologic Surgeries/Procedures: colon resection, bilat mastectomy, hysterectomy for uterine cancer Social & Family History - Family History Family Medical History: No Pertinent Family History - Tobacco Use Tobacco Use Status *Q: Never Tobacco User Second Hand Smoke Exposure: No - Caffeine Use Caffeine Use: Reports: Coffee, Soda Caffeine Use Comment: 2 cups of each per day - Recreational Drug Use Recreational Drug Use: No - Living Situation & Occupation Living situation: Reports: Occupation: Retired H&P Review of Systems - Review of Systems: Review Of Systems: See Below General: Reports: Malaise, Weakness, Fatigue HEENT: Reports: No Symptoms Pulmonary: Reports: No Symptoms Cardiovascular: Reports: No Symptoms Gastrointestinal: Reports: No Symptoms Genitourinary: Reports: No Symptoms Musculoskeletal: Reports: Back Pain, Leg Pain Skin: Reports: No Symptoms Psychiatric: Reports: No Symptoms Neurological: Reports: No Symptoms Hematologic/Lymphatic: Reports: No Symptoms Immunologic: Reports: No Symptoms Exam - Exam Exam: See Below - Vital Signs Weight: 121.835 kg - Exam Quality Assessment: Supplemental Oxygen, DVT Prophylaxis, Skin Breakdown General: Alert, Oriented, Cooperative HEENT: EOMI Lungs: Crackles Cardiovascular: Regular Rate, Regular Rhythm GI/Abdominal Exam: Normal Bowel Sounds Back Exam: Vertebral Tenderness Extremities: Pedal Edema Peripheral Pulses: 2+: Radial (L), Radial (R) Skin: Warm, Dry, Intact Neuro Extensive - Mental Status: Alert, Oriented x3, Normal Mood/Affect Neuro Extensive - Motor, Sensory, Reflexes: Abnormal Gait Psychiatric: Alert, Normal Affect, Normal Mood - Patient Data Lab Results Last 24 hrs: Laboratory Results - last 24 hr 01/08/21 Range/Units 17:31 POC Glucose 132 H (80-116) mg/dL Sepsis Event Note - Evaluation Sepsis Screening Result: No Definite Risk - Problem List (1) Weakness SNOMED Code(s): 60085927 ICD Code: R53.1 - WEAKNESS Status: Acute Current Visit: Yes (2) Constipation due to opioid therapy SNOMED Code(s): 134253298738343 ICD Code: K59.03 - DRUG INDUCED CONSTIPATION; T40.2X5A - ADVERSE EFFECT OF OTHER OPIOIDS, INITIAL ENCOUNTER Status: Acute Current Visit: Yes (3) Palliative care encounter SNOMED Code(s): 263087081, 087538201 ICD Code: Z51.5 - ENCOUNTER FOR PALLIATIVE CARE Status: Acute Current Visit: Yes (4) Acute low back pain SNOMED Code(s): 458844193 ICD Code: M54.5 - LOW BACK PAIN Status: Acute Current Visit: No Onset Date: ~12/10/20 Qualifiers: Back pain laterality: right Sciatica presence: without sciatica Qualified Code(s): M54.5 - Low back pain (5) History of colon cancer SNOMED Code(s): 042292728 ICD Code: Z85.038 - PERSONAL HISTORY OF MALIGNANT NEOPLASM OF LARGE INTESTINE Status: Chronic Current Visit: No (6) Pathological fracture of sacral vertebra SNOMED Code(s): 39540728295680802 ICD Code: M84.48XA - PATHOLOGICAL FRACTURE, OTHER SITE, INIT ENCNTR FOR FRACTURE Status: Acute Current Visit: No Problem Details: MRI Lumbar without contrast: Aggressive appearing lesion involving the S1 & S2 segments with ventral epidural soft tissue component causing sever canal & right subarticular recess stenosis. Differential includes metastatic disease & primary neoplasm such as sarcoma. Hematology oncology consultation recommended. (7) Diabetes type 2, controlled SNOMED Code(s): 49432043, 259990258 ICD Code: E11.9 - TYPE 2 DIABETES MELLITUS WITHOUT COMPLICATIONS Status: Chronic Current Visit: No (8) History of breast cancer SNOMED Code(s): 445212969 ICD Code: Z85.3 - PERSONAL HISTORY OF MALIGNANT NEOPLASM OF BREAST Status: Chronic Current Visit: No (9) History of uterine cancer SNOMED Code(s): 876589733 ICD Code: Z85.42 - PERSONAL HISTORY OF MALIGNANT NEOPLASM OF OTH PRT UTERUS Status: Chronic Current Visit: No (10) Obesity SNOMED Code(s): 493498376, 024670583 ICD Code: E66.9 - OBESITY, UNSPECIFIED Status: Chronic Current Visit: No Qualifiers: Body mass index: BMI 45.0-49.9 (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 SNOMED Code(s): 632554735 ICD Code: G62.0 - DRUG-INDUCED POLYNEUROPATHY; T45.1X5A - ADVERSE EFFECT OF ANTINEOPLASTIC AND IMMUNOSUP DRUGS, INIT Status: Chronic Current Visit: No (12) Gout SNOMED Code(s): 56240664 ICD Code: M10.9 - GOUT, UNSPECIFIED Status: Acute Current Visit: Yes Problem List Initiated/Reviewed/Updated: Yes Orders Last 24hrs: Active Orders 24 hr Category Date Time Status Patient Status [ADT] Routine ADT 01/08/21 16:04 Active Accu Check [Blood Glucose Check, Bedside] [] TIDMEALS Care 01/08/21 17:43 Active Daily Weight [Height and Weight] [] DAILY Care 01/09/21 06:00 Active Pulse Oximetry [] PRN Care 01/08/21 16:04 Active VTE/DVT Education [] Click to Edit Care 01/08/21 16:09 Active Vital Signs [] DAILY Care 01/08/21 16:04 Active Regular Diet [DIET] Diet 01/08/21 Dinner Active Acetaminophen [Tylenol Arthritis Pain] Med 01/08/21 16:13 Active 650 mg PO Q8H PRN Aspirin [Halfprin] Med 01/08/21 21:00 Active 81 mg PO BEDTIME Celecoxib [CeleBREX] Med 01/08/21 21:00 Active 200 mg PO BID Cholecalciferol (Vitamin D3) [Vitamin D3] Med 01/09/21 09:00 Active 50 mcg PO DAILY Enoxaparin [Lovenox] Med 01/08/21 21:00 Active 40 mg SUBCUT Q24H Ferrous Sulfate Med 01/09/21 09:00 Active 325 mg PO DAILY Furosemide [Lasix] Med 01/09/21 09:00 Active 80 mg PO DAILY HYDROmorphone [Dilaudid] Med 01/08/21 16:13 Active 2 mg PO TID PRN Insulin Lispro [HumaLOG] Med 01/08/21 18:00 Active 2 - 8 unit SUBCUT TIDMEALS Magnesium Chloride [Mag-64] Med 01/09/21 09:00 Active 64 mg PO DAILY Megestrol [Megace 40 MG/ML Susp] Med 01/08/21 17:00 Active 80 mg PO QID Multivitamins w-Iron/Ca/FA/Min [Thera M Plus] Med 01/09/21 09:00 Active 1 tab PO DAILY Naloxone [Narcan] Med 01/08/21 16:45 Active 0.4 mg IV ASDIRECTED PRN Nystatin [Nystatin Crm] Med 01/08/21 16:13 Active 0 gm TOP TID PRN PEG 400/Propylene Glycol [Systane Lubricant] Med 01/08/21 16:13 Active 0 ml EYEBOTH Q4H PRN Potassium Chloride [Klor-Con] Med 01/08/21 17:00 Active 40 meq PO QID Simvastatin [Zocor] Med 01/08/21 21:00 Active 40 mg PO BEDTIME allopurinoL [Zyloprim] Med 01/09/21 09:00 Active 300 mg PO DAILY fentaNYL [Duragesic] Med 01/09/21 17:00 Active 25 mcg TRDERM Q72H metFORMIN [Glucophage] Med 01/08/21 18:00 Active 500 mg PO BIDMEALS metOLazone [Zaroxolyn] Med 01/09/21 08:00 Active 2.5 mg PO MOWEFR@0800 polyethylene glycoL 3350 [MiraLAX] Med 01/08/21 16:13 Active 17 gm PO DAILY PRN traZODone Med 01/08/21 16:13 Active 50 mg PO BEDTIME PRN DVT/VTE Prophylaxis Reflex [OM.PC] Per Unit Routine Oth 01/08/21 16:04 Ordered Resuscitation Status Routine Resus Stat 01/08/21 16:04 Ordered Medication Orders Acetaminophen (Acetaminophen 650 Mg Tab.Er) 650 mg PO Q8H PRN PRN Reason: Pain (mild 1-3) Allopurinol (Allopurinol 300 Mg Tab) 300 mg PO DAILY [facility] Aspirin (Aspirin 81 Mg Tab.Ec) 81 mg PO BEDTIME GABBY Celecoxib (Celecoxib 200 Mg Cap) 200 mg PO BID [facility] Cholecalciferol (Cholecalciferol (Vitamin D3) 25 Mcg Tab) 50 mcg PO DAILY [facility] Enoxaparin Sodium (Enoxaparin 40 Mg/0.4 Ml Syringe) 40 mg SUBCUT Q24H [facility] Fentanyl (Fentanyl 25 Mcg/Hr Transdermal Patch) 25 mcg TRDERM Q72H [facility] Ferrous Sulfate (Ferrous Sulfate 325 Mg Tab) 325 mg PO DAILY [facility] Furosemide (Furosemide 80 Mg Tab) 80 mg PO DAILY [facility] Hydromorphone HCl (Hydromorphone 2 Mg Tab) 2 mg PO TID PRN PRN Reason: Pain (severe 7-10) Insulin Human Lispro (Insulin Lispro 100 Unit/Ml 3 Ml Kwikpen) 2 - 8 unit SUBCUT TIDMEALS [facility]; Protocol Last Admin: 01/08/21 18:00 Dose: Not Given Documented by: AISHA Magnesium Chloride (Magnesium Chloride 64 Mg Tab.Er) 64 mg PO DAILY [facility] Megestrol Acetate (Megestrol Susp 40 Mg/Ml Ml (240 Ml Bottle)) 80 mg PO QID [facility] Last Admin: 01/08/21 17:59 Dose: 80 mg Documented by: AISHA Metformin HCl (Metformin 500 Mg Tab) 500 mg PO BIDMEALS [facility] Last Admin: 01/08/21 17:59 Dose: 500 mg Documented by: AISHA Metolazone (Metolazone 2.5 Mg Tab) 2.5 mg PO MOWEFR@0800 [facility] Multivitamins/Minerals (Multivitamins With Iron/Calcium/Folic Acid/Minerals Tab) 1 tab PO DAILY [facility] Naloxone HCl (Naloxone 0.4 Mg/Ml Sdv) 0.4 mg IV ASDIRECTED PRN PRN Reason: RESPIRATORY DEPRESSION Nystatin (Nystatin Crm 30 Gm Tube) 0 gm TOP TID PRN PRN Reason: Rash Polyethylene Glycol (Polyethylene Glycol 3350 Powder 17 Gm Packet) 17 gm PO DAILY PRN PRN Reason: Constipation Potassium Chloride (Potassium Chloride 20 Meq Packet) 40 meq PO QID [facility] Last Admin: 01/08/21 17:59 Dose: 40 meq Documented by: AISHA Propylene Glycol (Peg 400/Propylene Glycol Ophth Soln 15 Ml Bottle) 0 ml EYEBOTH Q4H PRN PRN Reason: Dry Eyes Simvastatin (Simvastatin 40 Mg Tab) 40 mg PO BEDTIME [facility]AB[facility] Trazodone HCl (Trazodone 50 Mg Tab) 50 mg PO BEDTIME PRN PRN Reason: Insomnia Assessment/Plan Comment:: Patient has acute history of pathologic fracture of the sacrum secondary to metastatic cancer. Patient will be admitted for occupational physical therapy until she regains enough strength to be able to go home. She will start chemotherapy in approximately 1 month. Patient elected for regular diet. She states that her oncologist encourages her to eat. Sliding scale insulin. Continue medical treatment as above for other chronic conditions Enoxaparin 40 mg subcu for DVT prophylaxis
[2021-01-08] MEDS: Celecoxib 200 MG Cap PO SCH (21:20)
[2021-01-08] MEDS: Aspirin 81 MG Tab.EC PO SCH (21:20)
[2021-01-08] MEDS: Enoxaparin 40 MG/0.4 ML Syringe SUBCUT SCH (21:21)
[2021-01-08] MEDS: Simvastatin 40 MG Tab PO SCH (21:22)
[2021-01-08] MEDS: HYDROmorphone 2 MG Tab PO PRN (21:22)
[2021-01-09] MEDS: HYDROmorphone 2 MG Tab PO PRN ×3 (07:02→22:03)
[2021-01-09] MEDS: metFORMIN 500 MG Tab PO SCH ×2 (09:34→17:33)
[2021-01-09] MEDS: Metolazone 2.5 MG Tab PO SCH (09:35)
[2021-01-09] MEDS: Potassium Chloride 20 MEQ Packet PO SCH ×4 (09:35→20:29)
[2021-01-09] MEDS: Insulin Lispro 100 Unit/ML 3 ML KwikPen SUBCUT SCH ×3 (09:35→17:34)
[2021-01-09] MEDS: Ferrous Sulfate 325 MG Tab PO SCH (09:35)
[2021-01-09] MEDS: Megestrol Susp 40 MG/ML ML (240 ML Bottle) PO SCH ×4 (09:36→20:30)
[2021-01-09] MEDS: Cholecalciferol (Vitamin D3) 25 MCG Tab PO SCH (09:36)
[2021-01-09] MEDS: Magnesium Chloride 64 MG Tab.ER PO SCH (09:36)
[2021-01-09] MEDS: Multivitamins with Iron/Calcium/Folic Acid/Minerals Tab PO SCH (09:36)
[2021-01-09] MEDS: Allopurinol 300 MG Tab PO SCH (09:37)
[2021-01-09] MEDS: Celecoxib 200 MG Cap PO SCH ×2 (09:38→20:29)
[2021-01-09] MEDS: Furosemide 80 MG Tab PO SCH (10:16)
--- OUTSIDE RECORDS SUMMARY | 2021-01-09 16:11 | XMSREPORT ---
:1940 Author Organization [facility] and [facility] s Address [address] [place] [address] [address] [place] [address] Care Team Providers Name Role Phone Montserrat Duenas MD Primary Care Provider Montserrat Duenas MD Attributed Provider Giacomo Gayle MD Unavailable MD Yary Unavailable Quentin Henderson MD Unavailable MD Krystle Unavailable Reason for Referral FCC Prior Auth (Routine) Status Reason Specialty Diagnoses / Referred By Referred To Procedures Contact Contact Authorized Continuity of Diagnoses Controlled type 2 diabetes mellitus without complication, without long-term current use of insulin (HCC) Lymphedema of both lower extremities 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) Intractable pain Guille Miranda Class 3 severe o besity due to excess calories with serious comorbidity and body mass index (BMI) of 45.0 to 49.9 in adult (HCC) Bone metastasis (HCC) MD Trina Procedures PETCT SKULL TO THIGH [address] [place] [address] Reason for Visit Reason Comments Auth/Cert Status Reason Specialty Diagnoses / Procedures Referred By C ontact Referred To Contact Encounter Details Date Type Department Care Team Description 12/25/2020 - Hospital Encounter [facility] [place], Intrac table pain 01/08/2021 Center Iam Nunez MD [address] [place] [address] MARIN, ISAÍAS [phone] [id number] [phone] Allergies Active Allergy Reactions Severity Noted Date Comments Cephalexin Hives (High), Rash High 02/02/2012 Oxycodone-Acetaminophen Wheezing/Bronchospasm (High) High 0 02/02/2012 documented as of this encounter (statuses as of 01/08/2021) Medications Medication Sig Dispensed Refills Start End Status Date Date polyethylene glycol Take 1 capful by 0 Active (MIRALAX) powder mouth 1 time a day as needed for constipation acetaminophen (TYLENOL Take 650 mg by 0 Active ARTHRITIS) 650 mg CR mouth Every 8 tablet hours as needed for mild pain or other (Specify) (headache) aspirin 81 mg enteric Take 81 mg by 0 Active coated tablet mouth every night at bedtime Multiple Take 1 tablet by 0 Act bryan Vitamins-Minerals mouth 1 time a (CENTRUM SILVER day in the 50+WOMEN) TABS morning vitamin D3, Take 2,000 Units 0 A ctive cholecalciferol, 2000 by mouth 1 time unit capsule a day in the morning polyethyl glycol-propyl Place 1 drop 0 Active glycol (SYSTANE) into both eyes 0.4-0.3 % SOLN Every 4 hours as needed for dry eyes Accu-Chek Softclix USE TO TEST 100 each 3 Active lancetsIndications: BLOOD SUGAR ONCE 020 Controlled type 2 DAILY DX E11.9 diabetes mellitus without complication, with long-term current use of insulin ([facility]) nystatin (NILSTAT) Apply topically 60 g 0 Active creamIndications: Nevus 3 times a day as 020 needed for rash Accu-Chek Radha Plus USE TO TEST 100 each 11 Active test stripIndications: BLOOD SUGAR ONCE 020 Controlled type 2 DAILY E11.9 diabetes mellitus without complication, with long-term current use of insulin ([facility]) simvastatin (ZOCOR) 40 Take 1 tablet 90 tablet 3 Active mg tabletIndications: (40 mg) by mouth 021 Pure 1 time per day hypercholesterolemia metOLazone (ZAROXOLYN) TAKE 1 TABLET BY 39 tablet 1 Active 2.5 mg MOUTH ON 021 tabletIndications: MONDAYS, Wednesdays, AND FRIDAYS metFORMIN (GLUCOPHAGE) TAKE 1 TABLET BY 180 tablet 1 Active 500 MG MOUTH TWICE A 021 tabletIndications: DAY WITH MEALS Controlled type 2 diabetes mellitus without complication, with long-term current use of insulin ([facility]) furosemide (LASIX) 80 Take 1 tablet 90 tablet 0 Active mg tabletIndications: (80 mg) by mouth 021 Controlled type 2 1 time per day diabetes mellitus without complication, with long-term current use of insulin ([facility]) ferrous sulfate (65 MG Take 1 tablet 30 tablet 0 Active FE PER 325 MG TABLET) (325 mg) by 021 325 mg mouth 1 time a tabletIndications: day in the Chronic kidney disease, morning stage III (moderate) ([facility]) allopurinol (ZYLOPRIM) TAKE 1 TABLET BY 90 tablet 2 Active 300 mg MOUTH ONCE DAILY tabletIndications: Pure hypercholesterolemia celecoxib (CELEBREX) Take 1 capsule 60 capsule 12 2 / Active 200 mg (200 mg) by 2021 capsuleIndications: mouth 2 times a Chronic radicular low day back pain HYDROmorphone Take 1 tablet (2 15 tablet 0 2 01/11/ Active (DILAUDID) 2 mg mg) by mouth 3 2020 tabletIndications: times a day as Spinal stenosis of needed for lumbar region with severe pain for neurogenic claudication up to 3 days enoxaparin (LOVENOX) 40 Inject 40 mg 0 Active mg syringe (100 mg/mL) subcutaneously 021 subcutaneous injection Every 24 hours solutionIndications: Controlled type 2 diabetes mellitus without complication, without long-term current use of insulin ([facility]), Lymphedema of both lower extremities, Endometrial cancer ([facility]), Metastasis to spinal column ([facility]), Intractable pain, Class 3 severe obesity due to excess calories with serious comorbidity and body mass index (BMI) of 45.0 to 49.9 in adult ([facility]) traZODone (DESYREL) 50 Take 1 tablet 0 01/08/2 / Active mg tabletIndications: (50 mg) by mouth 2 Controlled type 2 at bedtime as diabetes mellitus needed for other without complication, (Specify) without long-term (insomnia) current use of insulin (HCC), Lymphedema of both lower extremities, Endometrial cancer (HCC), 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), Intractable pain, Class 3 severe obesity due to excess calories with serious comorbidity and body mass index (BMI) of 45.0 to 49.9 in adult ([facility]) dextrose 4-6 GM-MG CHEW Take 4 tablets 0 2 0 01/08/ chewable (16 g) by mouth 021 2020 tabletIndications: 1 time for 1 Controlled type 2 dose diabetes mellitus without complication, without long-term current use of insulin ([facility]), Lymphedema of both lower extremities, Endometrial cancer (HCC), 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), Intractable pain, Class 3 severe obesity due to excess calories with serious comorbidity and body mass index (BMI) of 45.0 to 49.9 in adult ([facility]) megestrol acetate Take 2 mL (80 0 Active (MEGACE) 40 mg/mL oral mg) by mouth suspensionIndications: times a day Controlled type 2 diabetes mellitus without complication, without long-term current use of insulin ([facility]), Lymphedema of both lower extremities, Endometrial cancer (HCC), 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), Intractable pain, Class 3 severe obesity due to excess calories with serious comorbidity and body mass index (BMI) of 45.0 to 49.9 in adult ([facility]) magnesium chloride Take 1 tablet 0 Active (MAG64) 64 mg enteric (64 mg) by mouth 021 coated 1 time per day tabletIndications: Controlled type 2 diabetes mellitus without complication, without long-term current use of insulin ([facility]), Lymphedema of both lower extremities, Endometrial cancer (HCC), 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), Intractable pain, Class 3 severe obesity due to excess calories with serious comorbidity and body mass index (BMI) of 45.0 to 49.9 in adult ([facility]) potassium chloride Take 2 packets 90 packet 3 Active (K-MARIAJOSE) 20 MEQ (40 mEq) by 021 packetIndications: mouth 4 times a Controlled type 2 day Dissolve in diabetes mellitus 4 to 8 ounces of without complication, water or juice. without long-term current use of insulin ([facility]), Lymphedema of both lower extremities, Endometrial cancer (HCC), 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), Intractable pain, Class 3 severe obesity due to excess calories with serious comorbidity and body mass index (BMI) of 45.0 to 49.9 in adult ([facility]) fentaNYL (DURAGESIC) 25 Apply 1 patch to 10 patch 0 Active mcg/hr the skin Every patchIndications: 72 hours Remove Controlled type 2 old patch prior diabetes mellitus to placing new without complication, patch. Rotate without long-term sites where current use of insulin patches are ([facility]), Lymphedema of placed. both lower extremities, Endometrial cancer (HCC), Metastasis to spinal column ([facility]), Intractable pain, Class 3 severe obesity due to excess calories with serious comorbidity and body mass index (BMI) of 45.0 to 49.9 in adult ([facility]) nalOXone (NARCAN) 4 [place] 1 spray (4 0.2 mL 0 01/08/2 / Active MG/0.1ML nasal mg) into one 2021 sprayIndications: nostril 1 time; Controlled type 2 may repeat in diabetes mellitus opposite nostril without complication, in 2 to 3 without long-term minutes if current use of insulin person does not ([facility]), Lymphedema of respond. both lower extremities, Endometrial cancer (HCC), Metastasis to spinal column ([facility]), Intractable pain, Class 3 severe obesity due to excess calories with serious comorbidity and body mass index (BMI) of 45.0 to 49.9 in adult ([facility]) insulin aspart Inject 2-8 Units 0 Active (NOVOLOG) SQ correction subcutaneously 3 021 scale times a day (Adult)Indications: Premeal Blood Controlled type 2 Glucose = diabetes mellitus Insulin Dose without complication, 150-199 2 units without long-term 200-249 3 units current use of insulin 250-299 5 units ([facility]), Lymphedema of 300-349 7 units both lower extremities, Over 349 8 units Endometrial cancer (HCC), Metastasis to spinal column ([facility]), Intractable pain, Class 3 severe obesity due to excess calories with serious comorbidity and body mass index (BMI) of 45.0 to 49.9 in adult ([facility]) amoxicillin (AMOXIL) Take 1,000 mg by 0 / Discontinued 500 mg capsule mouth 1 time a 2020 (Stop Taking day as needed at Dis charge) for other (Specify) (1 hour prior to dental appointment) potassium chloride TAKE 2 TABLETS 540 tablet 1 09/03/2 05/11 / Discontinued (KLOR-CON M20) 20 MEQ BY MOUTH THREE (Stop Taking CR tabletIndications: TIMES DAILY --DO at Discharge) Chronic kidney disease, NOT CRUSH-- stage III (moderate) ([facility]) HYDROmorphone Take 1 tablet (2 15 tablet 0 Discontinued (DILAUDID) 2 mg mg) by mouth 2020 tabletIndications: times a day as Spinal stenosis of needed for lumbar region with severe pain for neurogenic claudication up to 3 days HYDROmorphone Administer 0.5 0 D iscontinued (DILAUDID) 0.5 mg/0.5 mL (0.5 mg) 2020 (Stop Taking mL SOLN injection intravenously at Discharge) solution (conc: 0.5 Every hour as mg/0.5mL)Indications: needed for Controlled type 2 moderate pain diabetes mellitus without complication, without long-term current use of insulin ([facility]), Lymphedema of both lower extremities, Endometrial cancer (HCC), Metastasis to spinal column ([facility]), Intractable pain, Class 3 severe obesity due to excess calories with serious comorbidity and body mass index (BMI) of 45.0 to 49.9 in adult ([facility]) insulin aspart Inject 2-8 Units 0 (NOVOLOG) SQ correction subcutaneously 2020 scale times a day (Adult)Indications: Controlled type 2 diabetes mellitus without complication, without long-term current use of insulin ([facility]), Lymphedema of both lower extremities, Endometrial cancer (HCC), 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), Intractable pain, Class 3 severe obesity due to excess calories with serious comorbidity and body mass index (BMI) of 45.0 to 49.9 in adult ([facility]) sodium chloride 0.9% Administer 10 mL 0 Discontinued SOLNIndications: intravenously 2 2020 (Stop Taking Controlled type 2 times a day and at Discharge) diabetes mellitus as needed without complication, without long-term current use of insulin ([facility]), Lymphedema of both lower extremities, Endometrial cancer (HCC), 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), Intractable pain, Class 3 severe obesity due to excess calories with serious comorbidity and body mass index (BMI) of 45.0 to 49.9 in adult ([facility]) enoxaparin (LOVENOX) 40 Inject 40 mg 0 01/08/2 / Discontinued mg syringe (100 mg/mL) subcutaneously 2020 (Stop Taking subcutaneous injection time per day at Discharge) solutionIndications: Order duration: Controlled type 2 90 days. diabetes mellitus Indication:proph without complication, ylactic measure without long-term for in-patient. current use of insulin (HCC), Lymphedema of both lower extremities, 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), Intractable pain, Class 3 severe obesity due to excess calories with serious comorbidity and body mass index (BMI) of 45.0 to 49.9 in adult (HCC), Bone metastasis (HCC) documented as of this encounter (statuses as of 01/08/2021) Active Problems Problem Noted Date Bone metastasis 12/25/2020 Metastasis to spinal column 12/25/2020 Intractable pain 12/25/2020 Endometrial cancer 10/21/2019 Cancer Staging: Clinical: Unsigned Pathologic: FIGO Stage IA - Signed by Be kimi, Lizzy Saavedra MD on 10/25/2019 Endometrial hyperplasia 10/12/2019 Complex atypical endometrial hyperplasia 09/26/2019 Overview: Squamous cell carcinoma in situ 10/15/2017 Meningioma 08/03/2017 Pseudophakia 06/12/2017 Macrocytosis 11/18/2016 Posterior vitreous detachment 11/12/2016 Blepharitis of upper and lower eyelids of both eyes Hyperopia 11/12/2016 Presbyopia - Both 11/12/2016 Osteopenia 11/11/2015 Fatigue 11/08/2015 Full thickness macular hole 09/14/2015 Seborrheic keratoses 07/18/2014 Overview: right forehead x 2 Lymphedema of lower extremity 05/18/2014 Breast cancer of upper-inner quadrant of left female b reast 04/23/2014 Edema leg 02/22/2014 Abnormal CXR 11/03/2013 Sialadenitis 06/21/2013 S/P total knee arthroplasty 12/17/2012 Arthritis of knee 11/10/2012 Gout 10/13/2011 Hereditary and idiopathic peripheral neuropathy 2011 Swelling, mass, or lump in head and neck 05/22/2011 Anatomical narrow angle borderline glaucoma 04/23/2011 Overview: PI both eyes Chronic kidney disease, stage III (moderate) 1 Malignant neoplasm of female breast 06/24/2005 Goiter 10/23/2004 Obesity 10/23/2004 Pure hypercholesterolemia 10/23/2004 Primary localized osteoarthrosis, lower leg 10/23/2004 Malignant neoplasm of colon 10/23/2004 Malignant neoplasm of skin Fluid overload Controlled type 2 diabetes mellitus without complicati on documented as of this encounter (statuses as of 01/08/2021) Resolved Problems Problem Noted Date Resolved Date Chills (without fever) 09/12/2009 06/04/2015 Urinary tract infection, site not specified 09/12/2009 06/04/2015 Hypopotassemia 11/13/2008 06/04/2015 Other malaise and fatigue 10/31/2008 06/04/2015 Osteoporosis 04/21/2006 02/14/2016 Senile cataract 06/12/2017 documented as of this encounter (statuses as of 01/08/2021) Immunizations Name Administration Dates Next Due FLU VACCINE HIGH DOSE 65YR+(Fluzone) 06/07/2020, 06/15/2019, 06/03/2018, 06/24/2017, 06/16/2016, 07/05/2015, 05/18/2014, 06/08/2013, 07/06/2012, 07/29/2011 Influenza Vaccine 06/26/2010, 05/17/2009, 06/16/2007, 06/23/2006, 07/09/2005 Moderna COVID-19 Vaccine 10/11/2020, 09/13/2020 Pneumococcal Conj PCV13 07/05/2015 Pneumococcal Polysaccharide PPSV23 07/16/2007 TDAP 02/18/2016 Zoster Recombinant (Shingrix) 08/11/2020, 06/07/2020, 2018 documented as of this encounter Social History Tobacco Use Types Packs/Day Years Used Date Never Smoker Smokeless Tobacco: Never Used Alcohol Use Drinks/Week oz/Week Comments No Rare Sex Assigned at Date Recorded Female 01/25/2019 7:48 PM CDT documented as of this encounter Last Filed Vital Signs Vital Sign Reading Time Taken Comments Blood Pressure 115/61 01/08/2021 8:37 AM CDT Pulse 70 01/08/2021 8:37 AM CDT Temperature 36.8 C (98.2 F) 01/08/2021 8:37 AM CDT Respiratory Rate 18 01/08/2021 8:37 AM CDT Oxygen Saturation 97% 01/08/2021 8:37 AM CDT Inhaled Oxygen Concentration - - Weight 121.6 kg (268 lb) 01/08/2021 2:00 AM CDT Height 167.6 cm (5' 6") 12/25/2020 4:42 PM CDT Body Mass Index 43.26 12/25/2020 4:42 PM CDT documented in this encounter Functional Status Functional Status Response Date of Assessment Is the person deaf or does he/she have serious difficulty No 10/05/2019 hearing? Is this person blind or does he/she have difficulty No 10/05/2019 seeing even when wearing glasses? Do you have difficulty with walking, balance, climbing No 12/26/2020 stairs, or had a fall in the last 3 months? Does the patient have difficulty dressing or bathing? No 10/05/2019 Because of a physical, mental, or emotional condition; No 10/05/2019 does this person have difficulty doing errands alone such as visiting a doctor's office or shopping? Cognitive Status Response Date of Assessment Because of a physical, mental, or emotional condition; No 10/05/2019 does this person have serious difficulty concentrating, remembering, or making decisions? documented as of this encounter Discharge Summaries Not on filedocumented in this encounter Discharge Instructions Vale Jo RN - [facility] to draw labs on February [address] Miranda at [phone] orders faxed to [facility] and in packet. PET Scan will be on February 04, 2021 at 11:00 am. documented in this encounter Medications at Time of Discharge Medication Sig Dispensed Refills Start Date End Date HYDROmorphone (DILAUDID) 2 Take 1 tablet (2 mg) 15 tablet 0 01/08/2021 mg tabletIndications: by mouth 3 times a 1 Spinal stenosis of lumbar day as needed for region with neurogenic severe pain for up claudication to 3 days enoxaparin (LOVENOX) 40 mg Inject 40 mg 0 021 syringe (100 mg/mL) subcutaneously Every subcutaneous injection 24 hours solutionIndications: Controlled type 2 diabetes mellitus without complication, without long-term current use of insulin (HCC), Lymphedema of both lower extremities, Endometrial cancer (HCC), 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), Intractable pain, Class 3 severe obesity due to excess calories with serious comorbidity and body mass index (BMI) of 45.0 to 49.9 in adult ([facility]) traZODone (DESYREL) 50 mg Take 1 tablet (50 0 07/2021 tabletIndications: mg) by mouth at 2 Controlled type 2 diabetes bedtime as needed mellitus without for other (Specify) complication, without (insomnia) long-term current use of insulin ([facility]), Lymphedema of both lower extremities, Endometrial cancer (HCC), 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), Intractable pain, Class 3 severe obesity due to excess calories with serious comorbidity and body mass index (BMI) of 45.0 to 49.9 in adult ([facility]) dextrose 4-6 GM-MG CHEW Take 4 tablets (16 0 12/29 chewable g) by mouth 1 time 1 tabletIndications: for 1 dose Controlled type 2 diabetes mellitus without complication, without long-term current use of insulin ([facility]), Lymphedema of both lower extremities, Endometrial cancer (HCC), 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), Intractable pain, Class 3 severe obesity due to excess calories with serious comorbidity and body mass index (BMI) of 45.0 to 49.9 in adult ([facility]) megestrol acetate (MEGACE) Take 2 mL (80 mg) by 0 01/08/2021 40 mg/mL oral mouth 4 times a day suspensionIndications: Controlled type 2 diabetes mellitus without complication, without long-term current use of insulin ([facility]), Lymphedema of both lower extremities, Endometrial cancer (HCC), 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), Intractable pain, Class 3 severe obesity due to excess calories with serious comorbidity and body mass index (BMI) of 45.0 to 49.9 in adult ([facility]) magnesium chloride (MAG64) Take 1 tablet (64 0 64 mg enteric coated mg) by mouth 1 time tabletIndications: per day Controlled type 2 diabetes mellitus without complication, without long-term current use of insulin ([facility]), Lymphedema of both lower extremities, Endometrial cancer (HCC), 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), Intractable pain, Class 3 severe obesity due to excess calories with serious comorbidity and body mass index (BMI) of 45.0 to 49.9 in adult ([facility]) potassium chloride (K-MARIAJOSE) Take 2 packets (40 90 packet 3 0 01/08/2021 20 MEQ packetIndications: mEq) by mouth 4 Controlled type 2 diabetes times a day Dissolve mellitus without in 4 to 8 ounces of complication, without water or juice. long-term current use of insulin ([facility]), Lymphedema of both lower extremities, Endometrial cancer ([facility]), Metastasis to spinal column ([facility]), Intractable pain, Class 3 severe obesity due to excess calories with serious comorbidity and body mass index (BMI) of 45.0 to 49.9 in adult ([facility]) fentaNYL (DURAGESIC) 25 Apply 1 patch to the 10 patch 0 mcg/hr patchIndications: skin Every 72 hours Controlled type 2 diabetes Remove old patch mellitus without prior to placing new complication, without patch. Rotate sites long-term current use of where patches are insulin ([facility]), Lymphedema placed. of both lower extremities, Endometrial cancer ([facility]), Metastasis to spinal column ([facility]), Intractable pain, Class 3 severe obesity due to excess calories with serious comorbidity and body mass index (BMI) of 45.0 to 49.9 in adult ([facility]) insulin aspart (NOVOLOG) Inject 2-8 Units 0 01/08 SQ correction scale subcutaneously 3 (Adult)Indications: times a day Premeal Controlled type 2 diabetes Blood Glucose = mellitus without Insulin Dose 150-199 complication, without 2 units 200-249 3 long-term current use of units 250-299 5 insulin ([facility]), Lymphedema units 300-349 7 of both lower extremities, units Over 349 8 Endometrial cancer ([facility]), units Metastasis to spinal column ([facility]), Intractable pain, Class 3 severe obesity due to excess calories with serious comorbidity and body mass index (BMI) of 45.0 to 49.9 in adult ([facility]) celecoxib (CELEBREX) 200 Take 1 capsule (200 60 capsule 12 mg capsuleIndications: mg) by mouth 2 times 2 Chronic radicular low back a day pain allopurinol (ZYLOPRIM) 300 TAKE 1 TABLET BY 90 tablet 2 05/2021 mg tabletIndications: Pure MOUTH ONCE DAILY hypercholesterolemia simvastatin (ZOCOR) 40 mg Take 1 tablet (40 90 tablet 3 11/2020 tabletIndications: Pure mg) by mouth 1 time hypercholesterolemia per day metOLazone (ZAROXOLYN) 2.5 TAKE 1 TABLET BY 39 tablet 1 11/2020 mg tabletIndications: MOUTH ON MONDAYS, Edema wednesdays, AND FRIDAYS metFORMIN (GLUCOPHAGE) 500 TAKE 1 TABLET BY 180 tablet 1 11/2020 MG tabletIndications: MOUTH TWICE A DAY Controlled type 2 diabetes WITH MEALS mellitus without complication, with long-term current use of insulin ([facility]) furosemide (LASIX) 80 mg Take 1 tablet (80 90 tablet 0 11/2020 tabletIndications: mg) by mouth 1 time Controlled type 2 diabetes per day mellitus without complication, with long-term current use of insulin ([facility]) ferrous sulfate (65 MG FE Take 1 tablet (325 30 tablet 0 PER 325 MG TABLET) 325 mg mg) by mouth 1 time tabletIndications: Chronic a day in the morning kidney disease, stage III (moderate) ([facility]) nystatin (NILSTAT) Apply topically 3 60 g 0 04/02/2020 creamIndications: Nevus times a day as needed for rash acetaminophen (TYLENOL Take 650 mg by mouth 0 ARTHRITIS) 650 mg CR Every 8 hours as tablet needed for mild pain or other (Specify) (headache) aspirin 81 mg enteric Take 81 mg by mouth 0 coated tablet every night at bedtime Multiple Vitamins-Minerals Take 1 tablet by 0 (CENTRUM SILVER 50+WOMEN) mouth 1 time a day TABS in the morning vitamin D3, Take 2,000 Units by 0 cholecalciferol, 2000 unit mouth 1 time a day capsule in the morning polyethyl glycol-propyl Place 1 drop into 0 glycol (SYSTANE) 0.4-0.3 % both eyes Every 4 SOLN hours as needed for dry eyes polyethylene glycol Take 1 capful by 0 (MIRALAX) powder mouth 1 time a day as needed for constipation nalOXone (NARCAN) 4 [place] 1 spray (4 mg) 0.2 mL 0 2020 MG/0.1ML nasal into one nostril 1 2 sprayIndications: time; may repeat in Controlled type 2 diabetes opposite nostril in mellitus without 2 to 3 minutes if complication, without person does not long-term current use of respond. insulin ([facility]), Lymphedema of both lower extremities, Endometrial cancer (HCC), 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), Intractable pain, Class 3 severe obesity due to excess calories with serious comorbidity and body mass index (BMI) of 45.0 to 49.9 in adult (HCC) Accu-Chek Radha Plus test USE TO TEST BLOOD 100 each 11 11/2019 stripIndications: SUGAR ONCE DAILY Controlled type 2 diabetes E11.9 mellitus without complication, with long-term current use of insulin (HCC) Accu-Chek Softclix USE TO TEST BLOOD 100 each 3 03/16/2020 lancetsIndications: SUGAR ONCE DAILY DX Controlled type 2 diabetes E11.9 mellitus without complication, with long-term current use of insulin (HCC) documented as of this encounter Progress Notes Trina Miranda MD - 01/07/2021 6:53 PM CDT Hematology/Oncology Daily Progress Note Tali Fink is a 81yr old female admitted on 12/25/2020. 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 * Plan: Last RT fraction on 01/08/21. Transfer to a swing bed at [facility] in [place] on 01/08/21. Continue Fentanyl patch 25 mcg/h and oral Dilaudid for breakthrough pain. Continue Megace 80 mg PO qid. PET scan in 3 weeks. See me in 4 weeks to initiate chemo or immuno if a candidate. HPI / History / ROS HPI Mrs. Fink is an 80-year-old white female patient who I have been following for 3 types of cancer. She initially had colon cancer over 20 years ago, then breast cancer, then cancer of the endometrium. So far, all of her cancers have been detected at an early stage and she never had any recurrent cancer. Since about 12/01/2020, she started having pain, initially in the right lower extremity, then left lower extremity and eventually severe lower back pain to the point that ambulation became difficult. She had x-rays and CT scans, which were unrevealing. She then had an MRI scan on 12/25/2020 showing alarge lytic lesion at S1 and S2. She was admitted for pain control. Her exam today was unchanged. She is overweight. Chest is clear. Heart sounds were irregular. Her lab work today shows a white count of 6200, hemoglobin 12, platelet count 319,000. Differential count is normal. Chemistries, glucose 124, potassium 3.2 (it was replaced by oral potassium), creatinine 0.77, magnesium 1.7 (replaced by oral magnesium). Serum protein electrophoresis is pending, CA-125 was 21, CA 15-3 was 18.6, CA 19-9 was 13, CEA was 2.7. B12 level 826, IgA 436, IgG 918, IgM 35. I did request a biopsy of the sacral mass. Dr. Bustillo from interventional radiology wanted to obtain a CT scan of the chest, abdomen and pelvis before proceeding to make sure that she did not have another lesion which would be easier to biopsy. The CT scan of the chest, abdomen and pelvis did not show any other lesions. In view of that, on 12/26/2020, the patient had a CT-guided needle aspiration of the sacral mass by Dr. Bustillo. The patient needs to stay in the hospital for IV pain medication. She cannot ambulate. On 12/27/20 she was seen by Dr Dalton. He'll do the simulation on 12/28/20. He also thinks that we should wait till the biopsy result is available to initiate treatment. On 12/27/20 I saw Mrs Fink in her hospital room. She was lying in bed. She did sit in the chairfor about 1 and 1/2 h. She continued to have severe pain when up. She did work with OT and PT. They felt that she should go to a TCU on discharge before going back home. I tended to agree. I do not hink that she would be able to come back and forth from [place] where she lives for a her daily RT. Veronica also need good pain control with oral medications before going. She continued to eat well. For now we'll continue with the IV pain medications. I think she should be kept till a final diagnosis isavailable so we can design her treatment. Probably try to switch her to oral analgesics next week. Since she is building fluids, she agreed to resume her diuretics. She gained 3 kg in 1 day. She noticed more LE edema. Her lab work showed a mild anemia at 11.3 g/dL; BUN 23 mg/dL.Albumin 3.4 g/dL. Othervalues were Nl.She was continued on oral potassium and mag replacement. I did D/C the IV fluids which I ordered for the CT scan. I re-ordered her diuretics.(Lasix 80 mg PO daily and Metolazone 2.5 mg 3days a week). On 12/28/20 Mrs Fink was seen in her hospital room. Her daughter was on speaker phone. She appeared quite comfortable. She seemed to have achieved adequate pain control with her current regimen. She had a BM. The urine was collected with a female collecting system. She did work with OT and PT. Her appetite remained good. She did notice some decreased in the feet edema and had an excellent diuresis with the oral Lasix and Metolazone. Her exam was basically unchanged except for a decrease in her LE edema. Her lab work showed a WBC of 7.3 with an ANC of 4.3; Hgb 11.2 g/dL; Plt 283,000. Glucose 121 mg/dL; albumin 3.3 g/dL. Other chemistries were WNL. I did review her case with the pathologist. Nereida we know that it is an adenocarcinoma that is ER + and NC +. We need to differentiate between breast cancer and endometrial cancer. Further special stains have been ordered and should be back by Thursday. I explained to her the importance to know the difference since her systemic therapy would be different. She seemed to understand. I did answer multiple questions and told her that we'll make final plans on Thursday when the final path report will be available. RT will start ИРИНА. I am not prescribing steroids due to her DM. If neuro deficits become a problem she might benefit from a short course of dexamethasone. Her path report came back on 12/31/20 and reads: FINAL DIAGNOSIS A. BONE, SACRAL MASS, NEEDLE CORE BIOPSY: - Metastatic adenocarcinoma, favor gynecologic primary, see comment. at 1053 DIAGNOSIS COMMENT Properly controlled PAX8, estrogen receptor, and progesterone receptor are positive, and CK7 is focally positive. Stains for GATA3, CDX2, CK20, and P63 are negative, making a breast, colon, or squamouscell primary less likely. This is favored to represent a gynecologic metastasis, given the patient'srecent endometrioid adenocarcinoma. Clinical correlation is recommended. On 12/31/20 Mrs Fink was seen in her hospital room. She remained comfortable. No pain when in bed but getting up was quite painful. She was comfortable with the current pain meds. Her exam was unchanged. Her LE edema remained under control with the oral diuretics. Her mag was low at 1.7 mg/dL and replaced IV. Her CBC was unremarkable. Glucose was 141 mg/dL. CO2: 32 mEq/L. Mag 1.7 mg/dL. Other values were WNL. I did hope that RT would start soon. Unfortunately the Pt was told that RT would start 01/09/21. I'll have to check with Dr Dalton. For now, we can start her on Megestrol acetate 80 mg PO qid. Ultimately, I would like to give her 6 cycles of Carboplatin/Taxol. I also would like to check her tumor for mutations. Perhaps she would be a candidate for immunotherapy. On 01/01/21 Mrs Fnik was seen in her hospital room. She was feeling quite well. Her pain was well controlled. She continued to eat well. She had her 1st RT today. She was told that she would receive a total of 6 treatments. She seems to tolerate Megace quite well. She did work with OT and PT. Her exam was unchanged. Still having LE lymphedema. Her lab work showed a WBC of 8.4 with an ANC of 5.8; Hgb 12.9 g/dL and Plt 286,000. Glucose 138 mg/dL; potassium 2.7 mEq/L. CO2: 31 mEq/L. BUN 29 mg/dL; other values were Nl. I did review her treatment plan. Continue Megace,perhaps indefinitely pending side-effects. About 1 month post RT initiate chemo with Taxol/Carboplatin. Send the tumor to [facility] for genomics. If she is a candidate for immunotherapy,I would go that route. I also recommended genetic counseling in view of a heavy family history of cancers. On 01/03/21 Mrs Fink was seen in her hospital room. She continued to feel well. Good appetite. Pain control excellent when in bad. Still has severe pain when she sits or stands. Walking remains quite difficult. The RT is going well. She tolerates the Megace well. Her exam was unchanged. Some LE edema. Otherwise stable. Her lab work showed a WBC of 8.2 with an ANC of 6.0. Hgb 12.9 g/dL; Plt 289,000. Glucose 134 mg/dL; potassium 3.1 mEq/L; CO2: 30 mEq/L. BUN 37 mg/dL;other values were WNL. We talked about her transfer to a swing bed in [facility]. The plan is to discharge her on 01/08/21. She'll continue to take Megace 80 mg qid. I am awaiting genomics on her tumor. When available, I'll decide which would be the best for her. If nothing targetable, I would give her 6 cycles of Taxol/Carbo. Probably give her 3 weeks rest after RT is completed. On 01/04/21 I saw Mrs Fink in her hospital room. She was very happy. She noticed a great improvement in the lower back pain. She was able to walk half the hallway. Her exam was unchanged. Her lab work showed a WBC of 6.6 with an ANC of 4.8; Hgb 12.6 g/dL; Plt 277,000. Glucose 117 mg/dL; potassium 3.1 mEq/L.BUN 34 mg/dL. Alk phos 169 U/L. The plan was to continue the same pain meds. Continue RT. Continue OT and PT. Transfer to [place] swing bed on 01/08/21. On 01/07/21 I saw Mrs Fink in her hspital room. She continued to improve. Less pain. Doing wellwith Fentanyl patch 25 mcg/h and oral Dilaudid. She will receive her last RT fraction on 01/08/21. Then the plan is to transfer her to a swing bed at [facility] in [place]. Her exam was unchanged. Her feet remained somewhat edematous, but unchanged. Her exam was unchanged. Her WBC was 6.3with an ANC of 4.3; Hgb 11.7 g/dL; Plt 267,000. Glucose 134 mg/dL;BUN 26 mg/dL; creatinine 0.73 mg/dL. Albumin 3.4 g/dL. She will continue Megace 80 mg PO bid to control the growth of her cancer till we can start chemotherapy. Review of Systems Constitutional: Positive for fatigue. Negative for appetite change, chills, diaphoresis, fever and unexpected weight change. HENT: Negative. Eyes: Negative. Respiratory: Negative. Cardiovascular: Positive for leg swelling. Negative for chest pain and palpitations. Gastrointestinal: Negative. Endocrine: Negative. Genitourinary: Negative. Musculoskeletal: Positive for back pain (Her back pain has significantly improved.). Skin: Negative. Neurological: Positive for extremity weakness. Hematological: Negative. Psychiatric/Behavioral: Negative. Physical / Results Current Vital Signs Temp: 97.9 F (36.6 C) BP: 130/58 Weight: 122 kg (269 lb) SpO2: 97 % Resp: 18 Pulse: 68 Current BMI (>50 = increased risk): (!) 45.89 O2 Device: Room Air O2 Flow Rate (L/min): 2 l/min Pain Ratin Maximum Temperatures (last 24 hours) Temperature Maximum Max Temp 97.9 F (36.6 C) Intake and Output: 01/06 0700 - 01/07 0659 In: - Out: 1550 [Urine:1550] Physical Exam Constitutional: General: She is not in acute distress. Appearance: She is obese. She is not ill-appearing, toxic-appearing or diaphoretic. HENT: Head: Normocephalic. Nose: Nose normal. Mouth/Throat: Mouth: Mucous membranes are moist. Pharynx: Oropharynx is clear. No oropharyngeal exudate. Eyes: General: No scleral icterus. Conjunctiva/sclera: Conjunctivae normal. Pupils: Pupils are equal, round, and reactive to light. Neck: Musculoskeletal: Normal range of motion. Cardiovascular: Rate and Rhythm: Normal rate and regular rhythm. Heart sounds: No murmur. Pulmonary: Effort: Pulmonary effort is normal. Breath sounds: Normal breath sounds. Abdominal: General: Abdomen is flat. Bowel sounds are normal. Palpations: Abdomen is soft. Musculoskeletal: Normal range of motion. General: Swelling present. Right lower leg: Edema present. Left lower leg: Edema present. Lymphadenopathy: Cervical: No cervical adenopathy. Skin: General: Skin is warm and dry. Coloration: Skin is not pale. Findings: No erythema. Neurological: General: No focal deficit present. Mental Status: She is alert. Psychiatric: Mood and Affect: Mood normal. Results for TALI FINK ( ) as of 01/07/2021 18:59 Ref. Range 01/07/2021 05:56 WBC Latest Ref Range: 4.0 - 11.0 K/uL 6.3 RBC Latest Ref Range: 3.80 - 5.30 M/uL 3.28 (L) Hemoglobin Latest Ref Range: 11.5 - 15.8 g/dL 11.7 Hematocrit Latest Ref Range: 35.0 - 45.0 % 32.9 (L) MCV Latest Ref Range: 80.0 - 98.0 fL 100.3 (H) MCH Latest Ref Range: 25.5 - 34.0 pg 35.7 (H) MCHC Latest Ref Range: 31.5 - 36.5 g/dL 35.6 RDW-CV Latest Ref Range: 11.5 - 15.5 % 17.3 (H) RDW-SD Latest Ref Range: 35.5 - 50.0 fl 47.1 Platelet Count Latest Ref Range: 140 - 400 K/uL 267 MPV Latest Ref Range: 8.5 - 12.0 fL 10.8 Seg Neut Absolute Latest Ref Range: 1.8 - 8.0 K/uL 4.3 Lymphocytes Absolute Latest Ref Range: 0.8 - 4.1 K/uL 0.9 Monocytes Absolute Latest Ref Range: 0.0 - 1.0 K/uL 0.4 Eosinophils Absolute Latest Ref Range: 0.0 - 0.7 K/uL 0.7 Basophil Absolute Latest Ref Range: 0.0 - 0.2 K/uL 0.0 Immature Granulocyte Absolute Latest Ref Range: 0.00 - 0.06 K/uL 0.01 Neutrophils Percent Latest Units: % 67.2 Neutrophils Abs. (Segs and Bands) Latest Units: /uL 4,300 Lymphocytes Percent Latest Units: % 14.2 Monocytes Percent Latest Units: % 6.3 Immature Granulocyte Percent Latest Units: % 0.2 Eosinophils Percent Latest Units: % 11.5 Basophil Percent Latest Units: % 0.6 Nucleated RBC Latest Units: /100 WBC's 0 Glucose Latest Ref Range: 70 - 100 mg/dL 134 (H) Sodium Latest Ref Range: 135 - 145 meq/L 139 Potassium Latest Ref Range: 3.5 - 5.3 meq/L 3.9 Chloride Latest Ref Range: 99 - 110 meq/L 104 CO2 Latest Ref Range: 20 - 29 meq/L 27 Anion Gap with K Latest Ref Range: 6 - 20 meq/L 12 BUN Latest Ref Range: 6 - 22 mg/dL 26 (H) Creatinine Latest Ref Range: 0.60 - 1.10 mg/dL 0.73 BUN/Creatinine Ratio Latest Ref Range: 10.0 - 25.0 35.6 (H) Calcium Latest Ref Range: 8.5 - 10.5 mg/dL 9.4 Corrected Calcium Latest Ref Range: 8.5 - 10.5 mg/dL 9.9 Phosphorus Latest Ref Range: 2.5 - 4.5 mg/dL 2.9 Magnesium Latest Ref Range: 1.8 - 2.4 mg/dL 1.9 Albumin Latest Ref Range: 3.5 - 5.0 g/dL 3.4 (L) eGFR Latest Ref Range: >=60 mL/min/1.73m2 >90 eGFR Non- Latest Ref Range: >=60 mL/min/1.73m2 76 Hernan Ferrari MD - 2021 10:39 AM CDT HEMATOLOGY ONCOLOGY INPATIENT PROGRESS NOTE 2021 NAME: Tali Fink is a 80yr old female admitted to hospital 12/25/2020 4:07 PM Interval History 80 y/o female with biopsy proven metastatic endometrial cancer involving sacrum now undergoing XRT along with institution of Megace Rx. More comfortable today; No fevers; some edema. Potassium improved. Medications Current Facility-Administered Medications Medication Dose Route Frequency Provider Last Rate Last Admin potassium chloride (K-MARIAJOSE) packet 40 mEq 40 mEq Oral 4 times a day Trina Miranda MD 40 mEq at 01/06/21 0826 fentaNYL patch (DURAGESIC) 25 mcg/hr 25 mcg Transdermal Every 72 hours Trina Miranda MD 25 mcg at 01/03/21 1824 HYDROmorphone (DILAUDID) tablet 2 mg 2 mg Oral Every 4 hours prn Trina Miranda MD 2 mg at01/06/21 0254 nalOXone (NARCAN) injection solution (vial) 0.4 mg 0.4 mg Injection Every 2 minutes prn Tirna Miranda MD nalOXone (NARCAN) injection solution (vial) 0.2 mg 0.2 mg Injection Every 2 minutes prn Trina Miranda MD megestrol acetate (MEGACE) oral suspension (40 mg/mL) 80 mg 80 mg Oral 4 times a day Trina Miranda MD 80 mg at 01/06/21825 polyethylene glycol (MIRALAX) packet 1 packet 1 packet Oral Daily Darrin Archibald MD 1 packet at 01/06/21825 enoxaparin (LOVENOX) subcutaneous injection solution 40 mg 40 mg Subcutaneous Every 24 hours Trina Miranda MD 40 mg at 01/05/212235 furosemide (LASIX) tablet 80 mg 80 mg Oral Daily Trina Miranda MD 80 mg at 01/06/21825 metOLazone (ZAROXOLYN) tablet 2.5 mg 2.5 mg Oral 1 time a day Thu Trina Miranda MD 2.5 mg at 01/04/21804 magnesium chloride (MAG64) 64 mg enteric coated tablet 64 mg 64 mg Oral Daily Trina Miranda MD 64 mg at 01/06/21825 acetaminophen (TYLENOL) tablet 1,000 mg 1,000 mg Oral Every 6 hours prn Marco Bustillo MD allopurinol (ZYLOPRIM) tablet 300 mg 300 mg Oral daily Trina Miranda MD 300 mg at 01/06/21824 aspirin enteric coated tablet 81 mg 81 mg Oral at bedtime Trina Miranda MD 81 mg at 01/05/212234 celecoxib (celeBREX) capsule 200 mg 200 mg Oral 2 times a day Trina Miranda MD 200 mg at 01/06/21824 ferrous sulfate (65 mg FE per 325 mg tablet) tablet 325 mg 325 mg Oral Every morning Trina Miranda MD 325 mg at 01/06/21824 nystatin (NILSTAT) cream Apply externally 3 times a day prn Trina Miranda MD Given at 12/25/202122 polyethyl glycol-propyl glycol (SYSTANE) ophthalmic solution 1 drop 1 drop Both eyes Every 4 hours prn Trina Miranda MD simvastatin (ZOCOR) tablet 40 mg 40 mg Oral at bedtime Trina Miranda MD 40 mg at vitamin D3 (cholecalciferol) tablet 2,000 Units 2,000 Units Oral Every morning Trina Miranda MD 2,000 Units at 01/06/21 0826 acetaminophen (TYLENOL) tablet 650 mg 650 mg Oral Every 4 hours prn Trina Miranda MD 650 mg at 12/27/20 2227 senna-docusate sodium (SENOKOT-S;PERICOLACE) tablet 1 tablet 1 tablet Oral 2 times a day prn Trina Miranda MD bisacodyl (DULCOLAX) suppository 10 mg 10 mg Rectal 1 time a day prn Trina Miranda MD ondansetron (ZOFRAN) injection solution 4 mg 4 mg IV Every 4 hours prn Trina Miranda MD prochlorperazine (COMPAZINE) 10 mg/2 mL injection solution 5 mg 5 mg IV Every 6 hours prn Trina Miranda MD sodium chloride 0.9% flush (adult) 10 mL 10 mL IV 2 times a day and prn Trina Miranda MD 10 mL at 01/06/21 0829 HYDROmorphone (DILAUDID) injection solution (conc: 0.5 mg/0.5mL) 0.5 mg 0.5 mg IV Every 1 hour prn Trina Miranda MD 0.5 mg at 01/03/21 0805 HYDROmorphone (DILAUDID) injection solution (conc: 1 mg/mL) 1 mg 1 mg IV Every 1 hour prn Trina Miranda MD 1 mg at 01/03/21 1340 traZODone (DESYREL) tablet 50 mg 50 mg Oral Bedtime prn Trina Miranda MD 50 mg at 12/31/20 2333 multivitamin therapeutic with minerals (THERA-M) tablet 1 tablet 1 tablet Oral Daily Trina Miranda MD 1 tablet at 01/06/21 0826 dextrose 50% IV solution 50 mL 25 g IV PRN per parameter Trina Miranda MD glucagon for injection 1 mg vial 1 mg 1 mg Intramuscular PRN per parameter Trina Miranda MD dextrose chewable tablet 16 g 4 tablet Oral PRN per parameter Trina Miranda MD Or carbohydrate 15 g 15 g Oral PRN per parameter Trina Miranda MD insulin aspart (NovoLOG) SQ correction scale (Adult) 2-8 Units Subcutaneous 3 times a day Trina Miranda MD 2 Units at 01/05/21 1719 fentaNYL patch: VERIFY THAT PATCH IS IN PLACE 1 patch 1 patch Transdermal 2 times a day Trina Miranda MD Allergies Allergies Allergen Reactions Keflex [Cephalexin] Hives (High) and Rash Tylox [Oxycodone-Acetaminophen] Wheezing/Bronchospasm (High) ROS: 12 system ROS obtained. Pertinent positives as noted in HPI above. Physical Exam: Current Vital Signs Temp: 97.7 F (36.5 C) BP: 94/56 Pulse: 77 O2 Device: Room Air O2 Flow Rate (L/min): 2 l/min Resp: 18 Pain Ratin (out of 10) Weight: 120 kg (264 lb 9.6 oz) SpO2: 96 % Maximum Temperatures (last 24 hours) Temperature Maximum Max Temp 98.4 F (36.9 C) Wt Readings from Last 3 Encounters: 01/06/21 120 kg (264 lb 9.6 oz) 12/17/20 129.1 kg (284 lb 9.6 oz) 10/30/20 127.6 kg (281 lb 6.4 oz) General Appearance: Comfortable, alert, in no obvious distress, in bed. Respiratory: Effort normal. Lungs clear to auscultation. No rales, rhonchi, or wheezes. No dullnessto percussion. Cardiovascular: Heart of regular rate and rhythm. No murmurs or extra heart sounds. Abdomen: Soft, non tender, non distended. No hepatomegaly, no splenomegaly, no shifting dullness to percussion Extremities: Edema noted Psych: Judgement and insight intact. Oriented to time, place, and person. Mood and affect appropriate. Labs/Imaging Lab Results Component Value Date WBC 6.7 2021 NUCRBC 0 2021 RBC 3.24 (L) 2021 HEMOGLOBIN 11.7 2021 HEMATOCRIT 32.3 (L) 2021 MCV 99.7 (H) 2021 MCH 36.1 (H) 2021 MCHC 36.2 2021 RDW 14.1 06/22/2013 PLTCOUNT 278 2021 NEUTROPCT 71.0 2021 LYMPHSPCT 13.5 2021 MONOSPCT 6.3 2021 EOSPCT 8.7 2021 BASOPHILPCT 0.4 2021 Lab Results Component Value Date GLUCOSE 128 (H) 2021 BUN 31 (H) 2021 CREATSERUM 0.78 2021 BCRATIO 39.7 (H) 2021 NA 138 2021 POTASSIUM 3.5 2021 CL 103 2021 CO2 26 2021 CA 9.3 2021 PROTEINTOTAL 7.3 01/04/2021 ALBUMIN 3.4 (L) 2021 ALKPHOS 169 (H) 01/04/2021 AST 18 01/04/2021 ALT 11 01/04/2021 BILITOTAL 0.6 01/04/2021 I have reviewed the laboratory studies myself. 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 Meningioma (HCC) Pseudophakia Macrocytosis Posterior vitreous detachment Blepharitis of upper and lower eyelids of both eyes Hyperopia Presbyopia - Both Osteopenia Fatigue Full thickness macular hole Seborrheic keratoses right forehead x 2 Lymphedema of lower extremity 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) Edema leg Abnormal CXR Sialadenitis S/P total knee arthroplasty Arthritis of knee Gout Hereditary and idiopathic peripheral neuropathy Swelling, mass, or lump in head and neck 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 Miranda Several questions posed and answered to the patient's satisfaction regarding test results and their meaning, prognosis, and outcomes. Hernan Antonio MD Total time of service / Floor Time: 25 minutes Time spent with patient and counseling/coordination of care: 15 minutes Hernan anderson MD - 01/05/2021 10:13 AM CDT HEMATOLOGY ONCOLOGY INPATIENT PROGRESS NOTE 01/05/2021 NAME: Tali Fink is a 80yr old female admitted to hospital 12/25/2020 4:07 PM Interval History 80 y/o female with biopsy proven metastatic endometrial cancer involving sacrum now undergoing XRT along with institution of Megace Rx. More comfortable today; No fevers; some edema. Medications Current Facility-Administered Medications Medication Dose Route Frequency Provider Last Rate Last Admin potassium chloride (K-MARIAJOSE) packet 40 mEq 40 mEq Oral 4 times a day Trina Miranda MD 40 mEq at 01/05/21 0800 fentaNYL patch (DURAGESIC) 25 mcg/hr 25 mcg Transdermal Every 72 hours Trina Miranda MD 25 mcg at 01/03/21 1824 HYDROmorphone (DILAUDID) tablet 2 mg 2 mg Oral Every 4 hours prn Trina Miranda MD 2 mg at01/05/21 0931 nalOXone (NARCAN) injection solution (vial) 0.4 mg 0.4 mg Injection Every 2 minutes prn Trina Miranda MD nalOXone (NARCAN) injection solution (vial) 0.2 mg 0.2 mg Injection Every 2 minutes prn Trina Miranda MD megestrol acetate (MEGACE) oral suspension (40 mg/mL) 80 mg 80 mg Oral 4 times a day Trina Miranda MD 80 mg at 01/05/21 08 polyethylene glycol (MIRALAX) packet 1 packet 1 packet Oral Daily Darrin Archibald MD 1 packet at 01/05/21799 enoxaparin (LOVENOX) subcutaneous injection solution 40 mg 40 mg Subcutaneous Every 24 hours Trina Miranda MD 40 mg at 01/04/212042 furosemide (LASIX) tablet 80 mg 80 mg Oral Daily Trina Mirnada MD 80 mg at 01/05/21 0800 metOLazone (ZAROXOLYN) tablet 2.5 mg 2.5 mg Oral 1 time a day Thu Trina Miranda MD 2.5 mg at 01/04/21 0805 magnesium chloride (MAG64) 64 mg enteric coated tablet 64 mg 64 mg Oral Daily Trina Miranda MD 64 mg at 01/05/21758 acetaminophen (TYLENOL) tablet 1,000 mg 1,000 mg Oral Every 6 hours prn Marco Bustillo MD allopurinol (ZYLOPRIM) tablet 300 mg 300 mg Oral daily Trina Miranda MD 300 mg at 01/05/21758 aspirin enteric coated tablet 81 mg 81 mg Oral at bedtime Trina Miranda MD 81 mg at 01/04/212042 celecoxib (celeBREX) capsule 200 mg 200 mg Oral 2 times a day Trina Miranda MD 200 mg at 01/05/21758 ferrous sulfate (65 mg FE per 325 mg tablet) tablet 325 mg 325 mg Oral Every morning Trina Miranda MD 325 mg at 01/05/21758 nystatin (NILSTAT) cream Apply externally 3 times a day prn Trina Miranda MD Given at 12/25/202122 polyethyl glycol-propyl glycol (SYSTANE) ophthalmic solution 1 drop 1 drop Both eyes Every 4 hours prn Trina Miranda MD simvastatin (ZOCOR) tablet 40 mg 40 mg Oral at bedtime Trina Miranda MD 40 mg at vitamin D3 (cholecalciferol) tablet 2,000 Units 2,000 Units Oral Every morning Trina Miranda MD 2,000 Units at 01/05/21758 acetaminophen (TYLENOL) tablet 650 mg 650 mg Oral Every 4 hours prn Trina Miranda MD 650 mg at 12/27/20 2227 senna-docusate sodium (SENOKOT-S;PERICOLACE) tablet 1 tablet 1 tablet Oral 2 times a day prn Trina Miranda MD bisacodyl (DULCOLAX) suppository 10 mg 10 mg Rectal 1 time a day prn Trina Miranda MD ondansetron (ZOFRAN) injection solution 4 mg 4 mg IV Every 4 hours prn Trina Miranda MD prochlorperazine (COMPAZINE) 10 mg/2 mL injection solution 5 mg 5 mg IV Every 6 hours prn Trina Miranda MD sodium chloride 0.9% flush (adult) 10 mL 10 mL IV 2 times a day and prn Trina Miranda MD 10 mL at 01/05/21 0939 HYDROmorphone (DILAUDID) injection solution (conc: 0.5 mg/0.5mL) 0.5 mg 0.5 mg IV Every 1 hour prn Trina Miranda MD 0.5 mg at 01/03/21 0805 HYDROmorphone (DILAUDID) injection solution (conc: 1 mg/mL) 1 mg 1 mg IV Every 1 hour prn Trina Miranda MD 1 mg at 01/03/21 1340 traZODone (DESYREL) tablet 50 mg 50 mg Oral Bedtime prn Trina Miranda MD 50 mg at 12/31/20 2333 multivitamin therapeutic with minerals (THERA-M) tablet 1 tablet 1 tablet Oral Daily Trina Miranda MD 1 tablet at 01/05/21 0759 dextrose 50% IV solution 50 mL 25 g IV PRN per parameter Trina Miranda MD glucagon for injection 1 mg vial 1 mg 1 mg Intramuscular PRN per parameter Trina Miranda MD dextrose chewable tablet 16 g 4 tablet Oral PRN per parameter Trina Miranda MD Or carbohydrate 15 g 15 g Oral PRN per parameter Trina Miranda MD insulin aspart (NovoLOG) SQ correction scale (Adult) 2-8 Units Subcutaneous 3 times a day Trina Miranda MD 2 Units at 01/04/21 1658 fentaNYL patch: VERIFY THAT PATCH IS IN PLACE 1 patch 1 patch Transdermal 2 times a day Trina Miranda MD Allergies Allergies Allergen Reactions Keflex [Cephalexin] Hives (High) and Rash Tylox [Oxycodone-Acetaminophen] Wheezing/Bronchospasm (High) ROS: 12 system ROS obtained. Pertinent positives as noted in HPI above. Physical Exam: Current Vital Signs Temp: 97.7 F (36.5 C) BP: 103/56 Pulse: 63 O2 Device: Room Air O2 Flow Rate (L/min): 2 l/min Resp: 16 Pain Ratin (out of 10) Weight: 124.4 kg (274 lb 4.8 oz) SpO2: 96 % Maximum Temperatures (last 24 hours) Temperature Maximum Max Temp 98 F (36.7 C) Wt Readings from Last 3 Encounters: 01/05/21 124.4 kg (274 lb 4.8 oz) 12/17/20 129.1 kg (284 lb 9.6 oz) 10/30/20 127.6 kg (281 lb 6.4 oz) General Appearance: Comfortable, alert, in no obvious distress, in bed. Respiratory: Effort normal. Lungs clear to auscultation. No rales, rhonchi, or wheezes. No dullnessto percussion. Cardiovascular: Heart of regular rate and rhythm. No murmurs or extra heart sounds. Abdomen: Soft, non tender, non distended. No hepatomegaly, no splenomegaly, no shifting dullness to percussion Extremities: Edema noted Psych: Judgement and insight intact. Oriented to time, place, and person. Mood and affect appropriate. Labs/Imaging Lab Results Component Value Date WBC 7.0 01/05/2021 NUCRBC 0 01/05/2021 RBC 3.99 01/05/2021 HEMOGLOBIN 12.3 01/05/2021 HEMATOCRIT 37.3 01/05/2021 MCV 93.5 01/05/2021 MCH 30.8 01/05/2021 MCHC 33.0 01/05/2021 RDW 14.1 06/22/2013 PLTCOUNT 248 01/05/2021 NEUTROPCT 73.0 01/05/2021 LYMPHSPCT 13.8 01/05/2021 MONOSPCT 8.0 01/05/2021 EOSPCT 4.9 01/05/2021 BASOPHILPCT 0.3 01/05/2021 Lab Results Component Value Date GLUCOSE 135 (H) 01/05/2021 BUN 36 (H) 01/05/2021 CREATSERUM 0.79 01/05/2021 BCRATIO 45.6 (H) 01/05/2021 NA 139 01/05/2021 POTASSIUM 3.4 (L) 01/05/2021 CL 104 01/05/2021 CO2 25 01/05/2021 CA 9.5 01/05/2021 PROTEINTOTAL 7.3 01/04/2021 ALBUMIN 3.5 01/05/2021 ALKPHOS 169 (H) 01/04/2021 AST 18 01/04/2021 ALT 11 01/04/2021 BILITOTAL 0.6 01/04/2021 I have reviewed the laboratory studies myself. 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 Meningioma (HCC) Pseudophakia Macrocytosis Posterior vitreous detachment Blepharitis of upper and lower eyelids of both eyes Hyperopia Presbyopia - Both Osteopenia Fatigue Full thickness macular hole Seborrheic keratoses right forehead x 2 Lymphedema of lower extremity 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) Edema leg Abnormal CXR Sialadenitis S/P total knee arthroplasty Arthritis of knee Gout Hereditary and idiopathic peripheral neuropathy Swelling, mass, or lump in head and neck 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 Hernan Antonio MD Total time of service / Floor Time: 25 minutes Time spent with patient and counseling/coordination of care: 15 minutes Trina Rosado MD - 01/04/2021 6:55 PM CDT Hematology/Oncology Daily Progress Note Tali Fink is a 80yr old female admitted on 12/25/2020. 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 * Plan: Continue current pain meds. Continue RT. Continue OT and PT. Estimated Discharge Date: 01/08/21 HPI / History / ROS HPI Mrs. Fink is an 80-year-old white female patient who I have been following for 3 types of cancer. She initially had colon cancer over 20 years ago, then breast cancer, then cancer of the endometrium. So far, all of her cancers have been detected at an early stage and she never had any recurrent cancer. Since about 12/01/2020, she started having pain, initially in the right lower extremity, then left lower extremity and eventually severe lower back pain to the point that ambulation became difficult. She had x-rays and CT scans, which were unrevealing. She then had an MRI scan on 12/25/2020 showing alarge lytic lesion at S1 and S2. She was admitted for pain control. Her exam today was unchanged. She is overweight. Chest is clear. Heart sounds were irregular. Her lab work today shows a white count of 6200, hemoglobin 12, platelet count 319,000. Differential count is normal. Chemistries, glucose 124, potassium 3.2 (it was replaced by oral potassium), creatinine 0.77, magnesium 1.7 (replaced by oral magnesium). Serum protein electrophoresis is pending, CA-125 was 21, CA 15-3 was 18.6, CA 19-9 was 13, CEA was 2.7. B12 level 826, IgA 436, IgG 918, IgM 35. I did request a biopsy of the sacral mass. Dr. Bustillo from interventional radiology wanted to obtain a CT scan of the chest, abdomen and pelvis before proceeding to make sure that she did not have another lesion which would be easier to biopsy. The CT scan of the chest, abdomen and pelvis did not show any other lesions. In view of that, on 12/26/2020, the patient had a CT-guided needle aspiration of the sacral mass by Dr. Bustillo. The patient needs to stay in the hospital for IV pain medication. She cannot ambulate. On 12/27/20 she was seen by Dr Dalton. He'll do the simulation on 12/28/20. He also thinks that we should wait till the biopsy result is available to initiate treatment. On 12/27/20 I saw Mrs Fink in her hospital room. She was lying in bed. She did sit in the chairfor about 1 and 1/2 h. She continued to have severe pain when up. She did work with OT and PT. They felt that she should go to a TCU on discharge before going back home. I tended to agree. I do not hink that she would be able to come back and forth from [place] where she lives for a her daily RT. Veronica also need good pain control with oral medications before going. She continued to eat well. For now we'll continue with the IV pain medications. I think she should be kept till a final diagnosis isavailable so we can design her treatment. Probably try to switch her to oral analgesics next week. Since she is building fluids, she agreed to resume her diuretics. She gained 3 kg in 1 day. She noticed more LE edema. Her lab work showed a mild anemia at 11.3 g/dL; BUN 23 mg/dL.Albumin 3.4 g/dL. Othervalues were Nl.She was continued on oral potassium and mag replacement. I did D/C the IV fluids which I ordered for the CT scan. I re-ordered her diuretics.(Lasix 80 mg PO daily and Metolazone 2.5 mg 3days a week). On 12/28/20 Mrs Fink was seen in her hospital room. Her daughter was on speaker phone. She appeared quite comfortable. She seemed to have achieved adequate pain control with her current regimen. She had a BM. The urine was collected with a female collecting system. She did work with OT and PT. Her appetite remained good. She did notice some decreased in the feet edema and had an excellent diuresis with the oral Lasix and Metolazone. Her exam was basically unchanged except for a decrease in her LE edema. Her lab work showed a WBC of 7.3 with an ANC of 4.3; Hgb 11.2 g/dL; Plt 283,000. Glucose 121 mg/dL; albumin 3.3 g/dL. Other chemistries were WNL. I did review her case with the pathologist. Nereida we know that it is an adenocarcinoma that is ER + and NC +. We need to differentiate between breast cancer and endometrial cancer. Further special stains have been ordered and should be back by Thursday. I explained to her the importance to know the difference since her systemic therapy would be different. She seemed to understand. I did answer multiple questions and told her that we'll make final plans on Thursday when the final path report will be available. RT will start ИРИНА. I am not prescribing steroids due to her DM. If neuro deficits become a problem she might benefit from a short course of dexamethasone. Her path report came back on 12/31/20 and reads: FINAL DIAGNOSIS A. BONE, SACRAL MASS, NEEDLE CORE BIOPSY: - Metastatic adenocarcinoma, favor gynecologic primary, see comment. at 1053 DIAGNOSIS COMMENT Properly controlled PAX8, estrogen receptor, and progesterone receptor are positive, and CK7 is focally positive. Stains for GATA3, CDX2, CK20, and P63 are negative, making a breast, colon, or squamouscell primary less likely. This is favored to represent a gynecologic metastasis, given the patient'srecent endometrioid adenocarcinoma. Clinical correlation is recommended. On 12/31/20 Mrs Fink was seen in her hospital room. She remained comfortable. No pain when in bed but getting up was quite painful. She was comfortable with the current pain meds. Her exam was unchanged. Her LE edema remained under control with the oral diuretics. Her mag was low at 1.7 mg/dL and replaced IV. Her CBC was unremarkable. Glucose was 141 mg/dL. CO2: 32 mEq/L. Mag 1.7 mg/dL. Other values were WNL. I did hope that RT would start soon. Unfortunately the Pt was told that RT would start 01/09/21. I'll have to check with Dr Dalton. For now, we can start her on Megestrol acetate 80 mg PO qid. Ultimately, I would like to give her 6 cycles of Carboplatin/Taxol. I also would like to check her tumor for mutations. Perhaps she would be a candidate for immunotherapy. On 01/01/21 Mrs Fink was seen in her hospital room. She was feeling quite well. Her pain was well controlled. She continued to eat well. She had her 1st RT today. She was told that she would receive a total of 6 treatments. She seems to tolerate Megace quite well. She did work with OT and PT. Her exam was unchanged. Still having LE lymphedema. Her lab work showed a WBC of 8.4 with an ANC of 5.8; Hgb 12.9 g/dL and Plt 286,000. Glucose 138 mg/dL; potassium 2.7 mEq/L. CO2: 31 mEq/L. BUN 29 mg/dL; other values were Nl. I did review her treatment plan. Continue Megace,perhaps indefinitely pending side-effects. About 1 month post RT initiate chemo with Taxol/Carboplatin. Send the tumor to [facility] for genomics. If she is a candidate for immunotherapy,I would go that route. I also recommended genetic counseling in view of a heavy family history of cancers. On 01/03/21 Mrs Fink was seen in her hospital room. She continued to feel well. Good appetite. Pain control excellent when in bad. Still has severe pain when she sits or stands. Walking remains quite difficult. The RT is going well. She tolerates the Megace well. Her exam was unchanged. Some LE edema. Otherwise stable. Her lab work showed a WBC of 8.2 with an ANC of 6.0. Hgb 12.9 g/dL; Plt 289,000. Glucose 134 mg/dL; potassium 3.1 mEq/L; CO2: 30 mEq/L. BUN 37 mg/dL;other values were WNL. We talked about her transfer to a swing bed in [facility]. The plan is to discharge her on 01/08/21. She'll continue to take Megace 80 mg qid. I am awaiting genomics on her tumor. When available, I'll decide which would be the best for her. If nothing targetable, I would give her 6 cycles of Taxol/Carbo. Probably give her 3 weeks rest after RT is completed. On 01/04/21 I saw Mrs Fink in her hospital room. She was very happy. She noticed a great improvement in the lower back pain. She was able to walk half the hallway. Her exam was unchanged. Her lab work showed a WBC of 6.6 with an ANC of 4.8; Hgb 12.6 g/dL; Plt 277,000. Glucose 117 mg/dL; potassium 3.1 mEq/L.BUN 34 mg/dL. Alk phos 169 U/L. The plan was to continue the same pain meds. Continue RT. Continue OT and PT. Transfer to [facility] on 01/08/21. Review of Systems Constitutional: Positive for fatigue. Negative for appetite change, chills, diaphoresis, fever and unexpected weight change. HENT: Negative. Eyes: Negative. Respiratory: Negative. Cardiovascular: Positive for leg swelling. Negative for chest pain and palpitations. Gastrointestinal: Negative. Endocrine: Negative. Genitourinary: Negative. Musculoskeletal: Positive for back pain (Her back pain is improving.). Negative for myalgias. Skin: Negative. Neurological: Positive for extremity weakness. Hematological: Negative. Psychiatric/Behavioral: Negative. Physical / Results Current Vital Signs Temp: 98 F (36.7 C) BP: 122/63 Weight: 122 kg (268 lb 15.4 oz) SpO2: 96 % Resp: 18 Pulse: 78 Current BMI (>50 = increased risk): (!) 45.89 O2 Device: Room Air O2 Flow Rate (L/min): 2 l/min Pain Ratin Maximum Temperatures (last 24 hours) Temperature Maximum Max Temp 98 F (36.7 C) Intake and Output: 01/03 0700 - 01/04 0659 In: 1080 [Oral:1080] Out: 1100 [Urine:1100] Physical Exam Constitutional: General: She is not in acute distress. Appearance: She is obese. She is not ill-appearing, toxic-appearing or diaphoretic. HENT: Head: Normocephalic. Nose: Nose normal. Mouth/Throat: Mouth: Mucous membranes are moist. Pharynx: Oropharynx is clear. No oropharyngeal exudate. Eyes: General: No scleral icterus. Conjunctiva/sclera: Conjunctivae normal. Pupils: Pupils are equal, round, and reactive to light. Neck: Musculoskeletal: Normal range of motion. Cardiovascular: Rate and Rhythm: Normal rate and regular rhythm. Heart sounds: No murmur. Pulmonary: Effort: Pulmonary effort is normal. No respiratory distress. Breath sounds: Normal breath sounds. No stridor. No wheezing, rhonchi or rales. Chest: Chest wall: No tenderness. Abdominal: General: Abdomen is flat. Bowel sounds are normal. Palpations: Abdomen is soft. Musculoskeletal: Normal range of motion. General: Swelling present. Right lower leg: Edema present. Left lower leg: Edema present. Skin: General: Skin is warm and dry. Coloration: Skin is not jaundiced or pale. Neurological: General: No focal deficit present. Mental Status: She is alert. Psychiatric: Mood and Affect: Mood normal. Results for TALI FINK ( ) as of 01/04/2021 19:15 Ref. Range 01/04/2021 07:49 WBC Latest Ref Range: 4.0 - 11.0 K/uL 6.6 RBC Latest Ref Range: 3.80 - 5.30 M/uL 3.76 (L) Hemoglobin Latest Ref Range: 11.5 - 15.8 g/dL 12.6 Hematocrit Latest Ref Range: 35.0 - 45.0 % 36.5 MCV Latest Ref Range: 80.0 - 98.0 fL 97.1 MCH Latest Ref Range: 25.5 - 34.0 pg 33.5 MCHC Latest Ref Range: 31.5 - 36.5 g/dL 34.5 RDW-CV Latest Ref Range: 11.5 - 15.5 % 16.1 (H) RDW-SD Latest Ref Range: 35.5 - 50.0 fl 47.4 Platelet Count Latest Ref Range: 140 - 400 K/uL 277 MPV Latest Ref Range: 8.5 - 12.0 fL 11.0 Seg Neut Absolute Latest Ref Range: 1.8 - 8.0 K/uL 4.8 Lymphocytes Absolute Latest Ref Range: 0.8 - 4.1 K/uL 1.0 Monocytes Absolute Latest Ref Range: 0.0 - 1.0 K/uL 0.5 Eosinophils Absolute Latest Ref Range: 0.0 - 0.7 K/uL 0.3 Basophil Absolute Latest Ref Range: 0.0 - 0.2 K/uL 0.0 Immature Granulocyte Absolute Latest Ref Range: 0.00 - 0.06 K/uL 0.01 Neutrophils Percent Latest Units: % 72.5 Neutrophils Abs. (Segs and Bands) Latest Units: /uL 4,800 Lymphocytes Percent Latest Units: % 14.4 Monocytes Percent Latest Units: % 7.9 Immature Granulocyte Percent Latest Units: % 0.2 Eosinophils Percent Latest Units: % 4.5 Basophil Percent Latest Units: % 0.5 Nucleated RBC Latest Units: /100 WBC's 0 Glucose Latest Ref Range: 70 - 100 mg/dL 117 (H) Sodium Latest Ref Range: 135 - 145 meq/L 141 Potassium Latest Ref Range: 3.5 - 5.3 meq/L 3.1 (L) Chloride Latest Ref Range: 99 - 110 meq/L 101 CO2 Latest Ref Range: 20 - 29 meq/L 30 (H) Anion Gap with K Latest Ref Range: 6 - 20 meq/L 13 BUN Latest Ref Range: 6 - 22 mg/dL 34 (H) Creatinine Latest Ref Range: 0.60 - 1.10 mg/dL 0.88 BUN/Creatinine Ratio Latest Ref Range: 10.0 - 25.0 38.6 (H) Calcium Latest Ref Range: 8.5 - 10.5 mg/dL 9.9 Corrected Calcium Latest Ref Range: 8.5 - 10.5 mg/dL 10.2 Phosphorus Latest Ref Range: 2.5 - 4.5 mg/dL 3.3 Magnesium Latest Ref Range: 1.8 - 2.4 mg/dL 2.0 Bilirubin Total Latest Ref Range: 0.2 - 1.2 mg/dL 0.6 Bilirubin Direct Latest Ref Range: 0.0 - 0.4 mg/dL 0.3 Bilirubin Indirect Latest Ref Range: 0.0 - 0.8 mg/dL 0.3 Alkaline Phosphatase Latest Ref Range: 30 - 150 U/L 169 (H) ALT - SGPT Latest Ref Range: 0 - 55 U/L 11 AST - SGOT Latest Ref Range: 0 - 35 U/L 18 Protein Total Latest Ref Range: 6.0 - 8.2 g/dL 7.3 Albumin Latest Ref Range: 3.5 - 5.0 g/dL 3.6 eGFR Latest Ref Range: >=60 mL/min/1.73m2 75 eGFR Non- Latest Ref Range: >=60 mL/min/1.73m2 62 Trina Miranda MD - 01/03/2021 7:51 PM CDT Hematology/Oncology Daily Progress Note Tali Fink is a 80yr old female admitted on 12/25/2020. 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 * Plan: Increase Fentanyl to 25 mcg/h. Try oral Dilaudid for break-through pain. Contiue OT and PT. Transfer to [facility] bed in [place] on 01/08/21after her last RT. Continue Megace 80 mg PO qid. Increase the potassium supplements. HPI / History / ROS HPI Mrs. Fink is an 80-year-old white female patient who I have been following for 3 types of cancer. She initially had colon cancer over 20 years ago, then breast cancer, then cancer of the endometrium. So far, all of her cancers have been detected at an early stage and she never had any recurrent cancer. Since about 12/01/2020, she started having pain, initially in the right lower extremity, then left lower extremity and eventually severe lower back pain to the point that ambulation became difficult. She had x-rays and CT scans, which were unrevealing. She then had an MRI scan on 12/25/2020 showing alarge lytic lesion at S1 and S2. She was admitted for pain control. Her exam today was unchanged. She is overweight. Chest is clear. Heart sounds were irregular. Her lab work today shows a white count of 6200, hemoglobin 12, platelet count 319,000. Differential count is normal. Chemistries, glucose 124, potassium 3.2 (it was replaced by oral potassium), creatinine 0.77, magnesium 1.7 (replaced by oral magnesium). Serum protein electrophoresis is pending, CA-125 was 21, CA 15-3 was 18.6, CA 19-9 was 13, CEA was 2.7. B12 level 826, IgA 436, IgG 918, IgM 35. I did request a biopsy of the sacral mass. Dr. Bustillo from interventional radiology wanted to obtain a CT scan of the chest, abdomen and pelvis before proceeding to make sure that she did not have another lesion which would be easier to biopsy. The CT scan of the chest, abdomen and pelvis did not show any other lesions. In view of that, on 12/26/2020, the patient had a CT-guided needle aspiration of the sacral mass by Dr. Bustillo. The patient needs to stay in the hospital for IV pain medication. She cannot ambulate. On 12/27/20 she was seen by Dr Dalton. He'll do the simulation on 12/28/20. He also thinks that we should wait till the biopsy result is available to initiate treatment. On 12/27/20 I saw Mrs Fink in her hospital room. She was lying in bed. She did sit in the chairfor about 1 and 1/2 h. She continued to have severe pain when up. She did work with OT and PT. They felt that she should go to a TCU on discharge before going back home. I tended to agree. I do not hink that she would be able to come back and forth from [place] where she lives for a her daily RT. Veronica also need good pain control with oral medications before going. She continued to eat well. For now we'll continue with the IV pain medications. I think she should be kept till a final diagnosis isavailable so we can design her treatment. Probably try to switch her to oral analgesics next week. Since she is building fluids, she agreed to resume her diuretics. She gained 3 kg in 1 day. She noticed more LE edema. Her lab work showed a mild anemia at 11.3 g/dL; BUN 23 mg/dL.Albumin 3.4 g/dL. Othervalues were Nl.She was continued on oral potassium and mag replacement. I did D/C the IV fluids which I ordered for the CT scan. I re-ordered her diuretics.(Lasix 80 mg PO daily and Metolazone 2.5 mg 3days a week). On 12/28/20 Mrs Fink was seen in her hospital room. Her daughter was on speaker phone. She appeared quite comfortable. She seemed to have achieved adequate pain control with her current regimen. She had a BM. The urine was collected with a female collecting system. She did work with OT and PT. Her appetite remained good. She did notice some decreased in the feet edema and had an excellent diuresis with the oral Lasix and Metolazone. Her exam was basically unchanged except for a decrease in her LE edema. Her lab work showed a WBC of 7.3 with an ANC of 4.3; Hgb 11.2 g/dL; Plt 283,000. Glucose 121 mg/dL; albumin 3.3 g/dL. Other chemistries were WNL. I did review her case with the pathologist. Nirurosa maria we know that it is an adenocarcinoma that is ER + and NC +. We need to differentiate between breast cancer and endometrial cancer. Further special stains have been ordered and should be back by Thursday. I explained to her the importance to know the difference since her systemic therapy would be different. She seemed to understand. I did answer multiple questions and told her that we'll make final plans on Thursday when the final path report will be available. RT will start ИРИНА. I am not prescribing steroids due to her DM. If neuro deficits become a problem she might benefit from a short course of dexamethasone. Her path report came back on 12/31/20 and reads: FINAL DIAGNOSIS A. BONE, SACRAL MASS, NEEDLE CORE BIOPSY: - Metastatic adenocarcinoma, favor gynecologic primary, see comment. at 1053 DIAGNOSIS COMMENT Properly controlled PAX8, estrogen receptor, and progesterone receptor are positive, and CK7 is focally positive. Stains for GATA3, CDX2, CK20, and P63 are negative, making a breast, colon, or squamouscell primary less likely. This is favored to represent a gynecologic metastasis, given the patient'srecent endometrioid adenocarcinoma. Clinical correlation is recommended. On 12/31/20 Mrs Fink was seen in her hospital room. She remained comfortable. No pain when in bed but getting up was quite painful. She was comfortable with the current pain meds. Her exam was unchanged. Her LE edema remained under control with the oral diuretics. Her mag was low at 1.7 mg/dL and replaced IV. Her CBC was unremarkable. Glucose was 141 mg/dL. CO2: 32 mEq/L. Mag 1.7 mg/dL. Other values were WNL. I did hope that RT would start soon. Unfortunately the Pt was told that RT would start 01/09/21. I'll have to check with Dr Dalton. For now, we can start her on Megestrol acetate 80 mg PO qid. Ultimately, I would like to give her 6 cycles of Carboplatin/Taxol. I also would like to check her tumor for mutations. Perhaps she would be a candidate for immunotherapy. On 01/01/21 Mrs Fink was seen in her hospital room. She was feeling quite well. Her pain was well controlled. She continued to eat well. She had her 1st RT today. She was told that she would receive a total of 6 treatments. She seems to tolerate Megace quite well. She did work with OT and PT. Her exam was unchanged. Still having LE lymphedema. Her lab work showed a WBC of 8.4 with an ANC of 5.8; Hgb 12.9 g/dL and Plt 286,000. Glucose 138 mg/dL; potassium 2.7 mEq/L. CO2: 31 mEq/L. BUN 29 mg/dL; other values were Nl. I did review her treatment plan. Continue Megace,perhaps indefinitely pending side-effects. About 1 month post RT initiate chemo with Taxol/Carboplatin. Send the tumor to [facility] for genomics. If she is a candidate for immunotherapy,I would go that route. I also recommended genetic counseling in view of a heavy family history of cancers. On 01/03/21 Mrs Fink was seen in her hospital room. She continued to feel well. Good appetite. Pain control excellent when in bad. Still has severe pain when she sits or stands. Walking remains quite difficult. The RT is going well. She tolerates the Megace well. Her exam was unchanged. Some LE edema. Otherwise stable. Her lab work showed a WBC of 8.2 with an ANC of 6.0. Hgb 12.9 g/dL; Plt 289,000. Glucose 134 mg/dL; potassium 3.1 mEq/L; CO2: 30 mEq/L. BUN 37 mg/dL;other values were WNL. We talked about her transfer to a swing bed in [facility]. The plan is to discharge her on 01/08/21. She'll continue to take Megace 80 mg qid. I am awaiting genomics on her tumor. When available, I'll decide which would be the best for her. If nothing targetable, I would give her 4 cycles of Taxol/Carbo. Probably give her 3 weeks rest after RT is completed. Review of Systems Constitutional: Positive for fatigue. Negative for appetite change, chills, diaphoresis, fever and unexpected weight change. HENT: Negative. Eyes: Negative. Respiratory: Negative. Cardiovascular: Positive for leg swelling. Negative for chest pain and palpitations. Gastrointestinal: Negative. Endocrine: Negative. Genitourinary: Negative. Musculoskeletal: Positive for back pain and gait problem. Skin: Negative. Neurological: Positive for extremity weakness and gait problem. Hematological: Negative. Psychiatric/Behavioral: Negative. Physical / Results Current Vital Signs Temp: 97.4 F (36.3 C) BP: 122/27 Weight: 120 kg (264 lb 8.8 oz) SpO2: 98 % Resp: 20 Pulse: 77 Current BMI (>50 = increased risk): (!) 45.89 O2 Device: Room Air O2 Flow Rate (L/min): 2 l/min Pain Ratin Maximum Temperatures (last 24 hours) Temperature Maximum Max Temp 97.9 F (36.6 C) Intake and Output: 01/02 0700 - 01/03 0659 In: 929 [Oral:480] Out: 1175 [Urine:1175] Physical Exam Constitutional: General: She is not in acute distress. Appearance: She is obese. She is not ill-appearing, toxic-appearing or diaphoretic. HENT: Head: Normocephalic. Nose: Nose normal. Mouth/Throat: Mouth: Mucous membranes are moist. Pharynx: Oropharynx is clear. No oropharyngeal exudate. Eyes: General: No scleral icterus. Conjunctiva/sclera: Conjunctivae normal. Pupils: Pupils are equal, round, and reactive to light. Neck: Musculoskeletal: Normal range of motion. Cardiovascular: Rate and Rhythm: Normal rate and regular rhythm. Heart sounds: No murmur. Pulmonary: Effort: Pulmonary effort is normal. Breath sounds: Normal breath sounds. Abdominal: General: Abdomen is flat. Bowel sounds are normal. Palpations: Abdomen is soft. Musculoskeletal: Normal range of motion. General: Swelling present. Right lower leg: Edema present. Left lower leg: Edema present. Skin: General: Skin is warm and dry. Coloration: Skin is not jaundiced. Findings: No bruising, erythema or rash. Neurological: General: No focal deficit present. Mental Status: She is alert. Psychiatric: Mood and Affect: Mood normal. Results for TALI FINK ( ) as of 01/04/2021 07:33 Ref. Range 01/03/2021 06:27 WBC Latest Ref Range: 4.0 - 11.0 K/uL 8.2 RBC Latest Ref Range: 3.80 - 5.30 M/uL 3.75 (L) Hemoglobin Latest Ref Range: 11.5 - 15.8 g/dL 12.9 Hematocrit Latest Ref Range: 35.0 - 45.0 % 36.9 MCV Latest Ref Range: 80.0 - 98.0 fL 98.4 (H) MCH Latest Ref Range: 25.5 - 34.0 pg 34.4 (H) MCHC Latest Ref Range: 31.5 - 36.5 g/dL 35.0 RDW-CV Latest Ref Range: 11.5 - 15.5 % 16.2 (H) RDW-SD Latest Ref Range: 35.5 - 50.0 fl 47.7 Platelet Count Latest Ref Range: 140 - 400 K/uL 289 MPV Latest Ref Range: 8.5 - 12.0 fL 11.1 Seg Neut Absolute Latest Ref Range: 1.8 - 8.0 K/uL 6.0 Lymphocytes Absolute Latest Ref Range: 0.8 - 4.1 K/uL 1.2 Monocytes Absolute Latest Ref Range: 0.0 - 1.0 K/uL 0.7 Eosinophils Absolute Latest Ref Range: 0.0 - 0.7 K/uL 0.3 Basophil Absolute Latest Ref Range: 0.0 - 0.2 K/uL 0.0 Immature Granulocyte Absolute Latest Ref Range: 0.00 - 0.06 K/uL 0.01 Neutrophils Percent Latest Units: % 73.1 Neutrophils Abs. (Segs and Bands) Latest Units: /uL 6,000 Lymphocytes Percent Latest Units: % 14.0 Monocytes Percent Latest Units: % 8.3 Immature Granulocyte Percent Latest Units: % 0.1 Eosinophils Percent Latest Units: % 4.1 Basophil Percent Latest Units: % 0.4 Nucleated RBC Latest Units: /100 WBC's 0 Glucose Latest Ref Range: 70 - 100 mg/dL 134 (H) Sodium Latest Ref Range: 135 - 145 meq/L 139 Potassium Latest Ref Range: 3.5 - 5.3 meq/L 3.1 (L) Chloride Latest Ref Range: 99 - 110 meq/L 99 CO2 Latest Ref Range: 20 - 29 meq/L 30 (H) Anion Gap with K Latest Ref Range: 6 - 20 meq/L 13 BUN Latest Ref Range: 6 - 22 mg/dL 37 (H) Creatinine Latest Ref Range: 0.60 - 1.10 mg/dL 0.92 BUN/Creatinine Ratio Latest Ref Range: 10.0 - 25.0 40.2 (H) Calcium Latest Ref Range: 8.5 - 10.5 mg/dL 9.8 Corrected Calcium Latest Ref Range: 8.5 - 10.5 mg/dL 10.0 Phosphorus Latest Ref Range: 2.5 - 4.5 mg/dL 4.3 Magnesium Latest Ref Range: 1.8 - 2.4 mg/dL 2.1 Albumin Latest Ref Range: 3.5 - 5.0 g/dL 3.7 eGFR Latest Ref Range: >=60 mL/min/1.73m2 71 eGFR Non- Latest Ref Range: >=60 mL/min/1.73m2 59 (L) Hernan Ferrari MD - 01/02/2021 9:28 PM CDT HEMATOLOGY ONCOLOGY INPATIENT PROGRESS NOTE 01/02/2021 NAME: Tali Fink is a 80yr old female admitted to hospital 12/25/2020 4:07 PM Interval History 80 y/o female with biopsy proven metastatic endometrial cancer involving sacrum now undergoing XRT along with institution of Megace Rx. More comfortable; playing cards with relatives. No fevers; some edema. Medications Current Facility-Administered Medications Medication Dose Route Frequency Provider Last Rate Last Admin potassium chloride (K-MARIAJOSE) packet 40 mEq 40 mEq Oral 3 times a day with meals Trina Miranda MD 40 mEq at 01/02/21 1804 megestrol acetate (MEGACE) oral suspension (40 mg/mL) 80 mg 80 mg Oral 4 times a day Trina Miranda MD 80 mg at 01/02/212104 polyethylene glycol (MIRALAX) packet 1 packet 1 packet Oral Daily Darrin Archibald MD 1 packet at 12/31/20 0841 enoxaparin (LOVENOX) subcutaneous injection solution 40 mg 40 mg Subcutaneous Every 24 hours Trina Miranda MD 40 mg at 01/02/21 210 furosemide (LASIX) tablet 80 mg 80 mg Oral Daily Trina Miranda MD 80 mg at 01/02/21 1222 metOLazone (ZAROXOLYN) tablet 2.5 mg 2.5 mg Oral 1 time a day Thu Trina Miranda MD 2.5 mg at 01/02/21 1027 magnesium chloride (MAG64) 64 mg enteric coated tablet 64 mg 64 mg Oral Daily Trina Miranda MD 64 mg at 01/02/21 1026 acetaminophen (TYLENOL) tablet 1,000 mg 1,000 mg Oral Every 6 hours prn Marco Bustillo MD allopurinol (ZYLOPRIM) tablet 300 mg 300 mg Oral daily Trina Miranda MD 300 mg at 01/02/21 122 aspirin enteric coated tablet 81 mg 81 mg Oral at bedtime Trina Miranda MD 81 mg at 01/02/212104 celecoxib (celeBREX) capsule 200 mg 200 mg Oral 2 times a day Trina Miranda MD 200 mg at 01/02/21 1027 ferrous sulfate (65 mg FE per 325 mg tablet) tablet 325 mg 325 mg Oral Every morning Trina Miranda MD 325 mg at 01/02/21 1223 nystatin (NILSTAT) cream Apply externally 3 times a day prn Trina Miranda MD Given at 12/25/202122 polyethyl glycol-propyl glycol (SYSTANE) ophthalmic solution 1 drop 1 drop Both eyes Every 4 hours prn Trina Miranda MD simvastatin (ZOCOR) tablet 40 mg 40 mg Oral at bedtime Trina Miranda MD 40 mg at 105 vitamin D3 (cholecalciferol) tablet 2,000 Units 2,000 Units Oral Every morning Trina Miranda MD 2,000 Units at 01/02/21 1027 acetaminophen (TYLENOL) tablet 650 mg 650 mg Oral Every 4 hours prn Trina Miranda MD 650 mg at 12/27/20 2227 senna-docusate sodium (SENOKOT-S;PERICOLACE) tablet 1 tablet 1 tablet Oral 2 times a day prn Trina Miranda MD bisacodyl (DULCOLAX) suppository 10 mg 10 mg Rectal 1 time a day prn Trina Miranda MD ondansetron (ZOFRAN) injection solution 4 mg 4 mg IV Every 4 hours prn Trina Miranda MD prochlorperazine (COMPAZINE) 10 mg/2 mL injection solution 5 mg 5 mg IV Every 6 hours prn Trina Miranda MD sodium chloride 0.9% flush (adult) 10 mL 10 mL IV 2 times a day and prn Trina Miranda MD 10 mL at 12/31/202103 HYDROmorphone (DILAUDID) injection solution (conc: 0.5 mg/0.5mL) 0.5 mg 0.5 mg IV Every 1 hour prn Trina Miranda MD 0.5 mg at 01/02/21 210 HYDROmorphone (DILAUDID) injection solution (conc: 1 mg/mL) 1 mg 1 mg IV Every 1 hour prn Trina Miranda MD 1 mg at 12/30/20 0843 traZODone (DESYREL) tablet 50 mg 50 mg Oral Bedtime prn Trina Miranda MD 50 mg at 12/31/20 2333 multivitamin therapeutic with minerals (THERA-M) tablet 1 tablet 1 tablet Oral Daily Trina Miranda MD 1 tablet at 01/02/21 1026 dextrose 50% IV solution 50 mL 25 g IV PRN per parameter Trina Miranda MD glucagon for injection 1 mg vial 1 mg 1 mg Intramuscular PRN per parameter Trina Miranda MD dextrose chewable tablet 16 g 4 tablet Oral PRN per parameter Trina Miranda MD Or carbohydrate 15 g 15 g Oral PRN per parameter Trina Miranda MD insulin aspart (NovoLOG) SQ correction scale (Adult) 2-8 Units Subcutaneous 3 times a day Trina Miranda MD 2 Units at 01/01/21 1117 fentaNYL patch: VERIFY THAT PATCH IS IN PLACE 1 patch 1 patch Transdermal 2 times a day Trina Miranda MD fentaNYL patch (DURAGESIC) 12 mcg/hr 12 mcg Transdermal Every 72 hours Trina Miranda MD 12 mcg at 12/31/20 8403 Allergies Allergies Allergen Reactions Keflex [Cephalexin] Hives (High) and Rash Tylox [Oxycodone-Acetaminophen] Wheezing/Bronchospasm (High) ROS: 12 system ROS obtained. Pertinent positives as noted in HPI above. Physical Exam: Current Vital Signs Temp: 97.5 F (36.4 C) BP: 107/81 Pulse: 78 O2 Device: Room Air O2 Flow Rate (L/min): 2 l/min Resp: 16 Pain Ratin (out of 10) Weight: 120.2 kg (265 lb) SpO2: 92 % Maximum Temperatures (last 24 hours) Temperature Maximum Max Temp 97.5 F (36.4 C) Wt Readings from Last 3 Encounters: 01/02/21 120.2 kg (265 lb) 12/17/20 129.1 kg (284 lb 9.6 oz) 10/30/20 127.6 kg (281 lb 6.4 oz) General Appearance: Comfortable, alert, in no obvious distress, in bed. Respiratory: Effort normal. Lungs clear to auscultation. No rales, rhonchi, or wheezes. No dullnessto percussion. Cardiovascular: Heart of regular rate and rhythm. No murmurs or extra heart sounds. Abdomen: Soft, non tender, non distended. No hepatomegaly, no splenomegaly, no shifting dullness to percussion Extremities: Edema noted Psych: Judgement and insight intact. Oriented to time, place, and person. Mood and affect appropriate. Labs/Imaging Lab Results Component Value Date WBC 8.5 01/02/2021 NUCRBC 0 01/02/2021 RBC 3.88 01/02/2021 HEMOGLOBIN 13.2 01/02/2021 HEMATOCRIT 38.7 01/02/2021 MCV 99.7 (H) 01/02/2021 MCH 34.0 01/02/2021 MCHC 34.1 01/02/2021 RDW 14.1 06/22/2013 PLTCOUNT 272 01/02/2021 NEUTROPCT 71.6 01/02/2021 LYMPHSPCT 16.2 01/02/2021 MONOSPCT 7.3 01/02/2021 EOSPCT 4.2 01/02/2021 BASOPHILPCT 0.5 01/02/2021 Lab Results Component Value Date GLUCOSE 204 (H) 01/02/2021 BUN 36 (H) 01/02/2021 CREATSERUM 0.93 01/02/2021 BCRATIO 38.7 (H) 01/02/2021 NA 139 01/02/2021 POTASSIUM 3.7 01/02/2021 CL 99 01/02/2021 CO2 31 (H) 01/02/2021 CA 10.1 01/02/2021 PROTEINTOTAL 6.5 12/26/2020 ALBUMIN 3.7 01/02/2021 ALKPHOS 133 12/25/2020 AST 21 12/25/2020 ALT 14 12/25/2020 BILITOTAL 0.5 12/25/2020 I have reviewed the laboratory studies myself. 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 Meningioma (HCC) Pseudophakia Macrocytosis Posterior vitreous detachment Blepharitis of upper and lower eyelids of both eyes Hyperopia Presbyopia - Both Osteopenia Fatigue Full thickness macular hole Seborrheic keratoses right forehead x 2 Lymphedema of lower extremity 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) Edema leg Abnormal CXR Sialadenitis S/P total knee arthroplasty Arthritis of knee Gout Hereditary and idiopathic peripheral neuropathy Swelling, mass, or lump in head and neck 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 Hernan Antonio MD Total time of service / Floor Time: 25 minutes Time spent with patient and counseling/coordination of care: 15 minutes LLETGTrina ramsay MD - 01/01/2021 7:31 PM CDT Hematology/Oncology Daily Progress Note Tali Fink is a 80yr old female admitted on 12/25/2020. 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 * Plan: Continue Megace 80 mg PO qid. Continue RT. Transfer to a TCU,probably when RT is completed. HPI / History / ROS HPI Mrs. Fink is an 80-year-old white female patient who I have been following for 3 types of cancer. She initially had colon cancer over 20 years ago, then breast cancer, then cancer of the endometrium. So far, all of her cancers have been detected at an early stage and she never had any recurrent cancer. Since about 12/01/2020, she started having pain, initially in the right lower extremity, then left lower extremity and eventually severe lower back pain to the point that ambulation became difficult. She had x-rays and CT scans, which were unrevealing. She then had an MRI scan on 12/25/2020 showing alarge lytic lesion at S1 and S2. She was admitted for pain control. Her exam today was unchanged. She is overweight. Chest is clear. Heart sounds were irregular. Her lab work today shows a white count of 6200, hemoglobin 12, platelet count 319,000. Differential count is normal. Chemistries, glucose 124, potassium 3.2 (it was replaced by oral potassium), creatinine 0.77, magnesium 1.7 (replaced by oral magnesium). Serum protein electrophoresis is pending, CA-125 was 21, CA 15-3 was 18.6, CA 19-9 was 13, CEA was 2.7. B12 level 826, IgA 436, IgG 918, IgM 35. I did request a biopsy of the sacral mass. Dr. Bustillo from interventional radiology wanted to obtain a CT scan of the chest, abdomen and pelvis before proceeding to make sure that she did not have another lesion which would be easier to biopsy. The CT scan of the chest, abdomen and pelvis did not show any other lesions. In view of that, on 12/26/2020, the patient had a CT-guided needle aspiration of the sacral mass by Dr. Bustillo. The patient needs to stay in the hospital for IV pain medication. She cannot ambulate. On 12/27/20 she was seen by Dr Dalton. He'll do the simulation on 12/28/20. He also thinks that we should wait till the biopsy result is available to initiate treatment. On 12/27/20 I saw Mrs Fink in her hospital room. She was lying in bed. She did sit in the chairfor about 1 and 1/2 h. She continued to have severe pain when up. She did work with OT and PT. They felt that she should go to a TCU on discharge before going back home. I tended to agree. I do not hink that she would be able to come back and forth from [place] where she lives for a her daily RT. Veronica also need good pain control with oral medications before going. She continued to eat well. For now we'll continue with the IV pain medications. I think she should be kept till a final diagnosis isavailable so we can design her treatment. Probably try to switch her to oral analgesics next week. Since she is building fluids, she agreed to resume her diuretics. She gained 3 kg in 1 day. She noticed more LE edema. Her lab work showed a mild anemia at 11.3 g/dL; BUN 23 mg/dL.Albumin 3.4 g/dL. Othervalues were Nl.She was continued on oral potassium and mag replacement. I did D/C the IV fluids which I ordered for the CT scan. I re-ordered her diuretics.(Lasix 80 mg PO daily and Metolazone 2.5 mg 3days a week). On 12/28/20 Mrs Fink was seen in her hospital room. Her daughter was on speaker phone. She appeared quite comfortable. She seemed to have achieved adequate pain control with her current regimen. She had a BM. The urine was collected with a female collecting system. She did work with OT and PT. Her appetite remained good. She did notice some decreased in the feet edema and had an excellent diuresis with the oral Lasix and Metolazone. Her exam was basically unchanged except for a decrease in her LE edema. Her lab work showed a WBC of 7.3 with an ANC of 4.3; Hgb 11.2 g/dL; Plt 283,000. Glucose 121 mg/dL; albumin 3.3 g/dL. Other chemistries were WNL. I did review her case with the pathologist. Nereida we know that it is an adenocarcinoma that is ER + and NC +. We need to differentiate between breast cancer and endometrial cancer. Further special stains have been ordered and should be back by Thursday. I explained to her the importance to know the difference since her systemic therapy would be different. She seemed to understand. I did answer multiple questions and told her that we'll make final plans on Thursday when the final path report will be available. RT will start ИРИНА. I am not prescribing steroids due to her DM. If neuro deficits become a problem she might benefit from a short course of dexamethasone. Her path report came back on 12/31/20 and reads: FINAL DIAGNOSIS A. BONE, SACRAL MASS, NEEDLE CORE BIOPSY: - Metastatic adenocarcinoma, favor gynecologic primary, see comment. at 1053 DIAGNOSIS COMMENT Properly controlled PAX8, estrogen receptor, and progesterone receptor are positive, and CK7 is focally positive. Stains for GATA3, CDX2, CK20, and P63 are negative, making a breast, colon, or squamouscell primary less likely. This is favored to represent a gynecologic metastasis, given the patient'srecent endometrioid adenocarcinoma. Clinical correlation is recommended. On 12/31/20 Mrs Fink was seen in her hospital room. She remained comfortable. No pain when in bed but getting up was quite painful. She was comfortable with the current pain meds. Her exam was unchanged. Her LE edema remained under control with the oral diuretics. Her mag was low at 1.7 mg/dL and replaced IV. Her CBC was unremarkable. Glucose was 141 mg/dL. CO2: 32 mEq/L. Mag 1.7 mg/dL. Other values were WNL. I did hope that RT would start soon. Unfortunately the Pt was told that RT would start 01/09/21. I'll have to check with Dr Dalton. For now, we can start her on Megestrol acetate 80 mg PO qid. Ultimately, I would like to give her 6 cycles of Carboplatin/Taxol. I also would like to check her tumor for mutations. Perhaps she would be a candidate for immunotherapy. On 01/01/21 Mrs Fink was seen in her hospital room. She was feeling quite well. Her pain was well controlled. She continued to eat well. She had her 1st RT today. She was told that she would receive a total of 6 treatments. She seems to tolerate Megace quite well. She did work with OT and PT. Her exam was unchanged. Still having LE lymphedema. Her lab work showed a WBC of 8.4 with an ANC of 5.8; Hgb 12.9 g/dL and Plt 286,000. Glucose 138 mg/dL; potassium 2.7 mEq/L. CO2: 31 mEq/L. BUN 29 mg/dL; other values were Nl. I did review her treatment plan. Continue Megace,perhaps indefinitely pending side-effects. About 1 month post RT initiate chemo with Taxol/Carboplatin. Send the tumor to [facility] for genomics. If she is a candidate for immunotherapy,I would go that route. I also recommended genetic counseling in view of a heavy family history of cancers. Review of Systems Constitutional: Positive for fatigue. Negative for appetite change, chills, diaphoresis, fever and unexpected weight change. HENT: Positive for hearing loss. Negative for mouth sores, sore throat and trouble swallowing. Eyes: Negative. Respiratory: Negative. Cardiovascular: Negative. Gastrointestinal: Negative. Endocrine: Negative. Genitourinary: Negative. Musculoskeletal: Positive for back pain and gait problem. Skin: Negative. Neurological: Positive for extremity weakness and gait problem. Hematological: Negative. Psychiatric/Behavioral: Negative. Physical / Results Current Vital Signs Temp: 97.8 F (36.6 C) BP: 127/70 Weight: 123.6 kg (272 lb 7.8 oz) SpO2: 94 % Resp: 18 Pulse: 84 Current BMI (>50 = increased risk): (!) 45.89 O2 Device: Room Air O2 Flow Rate (L/min): 2 l/min Pain Ratin Maximum Temperatures (last 24 hours) Temperature Maximum Max Temp 97.9 F (36.6 C) Intake and Output: 12/31 0700 - 01/01 0659 In: 360 [Oral:360] Out: 2600 [Urine:2600] Physical Exam Constitutional: General: She is not in acute distress. Appearance: She is obese. She is not ill-appearing, toxic-appearing or diaphoretic. HENT: Head: Normocephalic. Nose: Nose normal. Mouth/Throat: Mouth: Mucous membranes are moist. Pharynx: Oropharynx is clear. No oropharyngeal exudate. Eyes: General: No scleral icterus. Conjunctiva/sclera: Conjunctivae normal. Pupils: Pupils are equal, round, and reactive to light. Neck: Musculoskeletal: Normal range of motion. Cardiovascular: Rate and Rhythm: Normal rate and regular rhythm. Heart sounds: No murmur. Pulmonary: Effort: Pulmonary effort is normal. Breath sounds: Normal breath sounds. Abdominal: General: Abdomen is flat. Bowel sounds are normal. Palpations: Abdomen is soft. Musculoskeletal: Normal range of motion. General: Swelling present. Right lower leg: Edema present. Left lower leg: Edema present. Skin: General: Skin is warm and dry. Coloration: Skin is not jaundiced or pale. Neurological: General: No focal deficit present. Mental Status: She is alert. Psychiatric: Mood and Affect: Mood normal. Results for TALI FINK ( ) as of 01/01/2021 19:36 Ref. Range 01/01/2021 07:12 WBC Latest Ref Range: 4.0 - 11.0 K/uL 8.4 RBC Latest Ref Range: 3.80 - 5.30 M/uL 4.04 Hemoglobin Latest Ref Range: 11.5 - 15.8 g/dL 12.9 Hematocrit Latest Ref Range: 35.0 - 45.0 % 39.7 MCV Latest Ref Range: 80.0 - 98.0 fL 98.3 (H) MCH Latest Ref Range: 25.5 - 34.0 pg 31.9 MCHC Latest Ref Range: 31.5 - 36.5 g/dL 32.5 RDW-CV Latest Ref Range: 11.5 - 15.5 % 14.8 RDW-SD Latest Ref Range: 35.5 - 50.0 fl 48.8 Platelet Count Latest Ref Range: 140 - 400 K/uL 286 MPV Latest Ref Range: 8.5 - 12.0 fL 11.2 Seg Neut Absolute Latest Ref Range: 1.8 - 8.0 K/uL 5.8 Lymphocytes Absolute Latest Ref Range: 0.8 - 4.1 K/uL 1.4 Monocytes Absolute Latest Ref Range: 0.0 - 1.0 K/uL 0.6 Eosinophils Absolute Latest Ref Range: 0.0 - 0.7 K/uL 0.5 Basophil Absolute Latest Ref Range: 0.0 - 0.2 K/uL 0.0 Immature Granulocyte Absolute Latest Ref Range: 0.00 - 0.06 K/uL 0.01 Neutrophils Percent Latest Units: % 69.1 Neutrophils Abs. (Segs and Bands) Latest Units: /uL 5,800 Lymphocytes Percent Latest Units: % 16.6 Monocytes Percent Latest Units: % 7.4 Immature Granulocyte Percent Latest Units: % 0.1 Eosinophils Percent Latest Units: % 6.3 Basophil Percent Latest Units: % 0.5 Nucleated RBC Latest Units: /100 WBC's 0 Glucose Latest Ref Range: 70 - 100 mg/dL 138 (H) Sodium Latest Ref Range: 135 - 145 meq/L 139 Potassium Latest Ref Range: 3.5 - 5.3 meq/L 2.7 (L) Chloride Latest Ref Range: 99 - 110 meq/L 98 (L) CO2 Latest Ref Range: 20 - 29 meq/L 31 (H) Anion Gap with K Latest Ref Range: 6 - 20 meq/L 13 BUN Latest Ref Range: 6 - 22 mg/dL 29 (H) Creatinine Latest Ref Range: 0.60 - 1.10 mg/dL 0.84 BUN/Creatinine Ratio Latest Ref Range: 10.0 - 25.0 34.5 (H) Calcium Latest Ref Range: 8.5 - 10.5 mg/dL 10.2 Corrected Calcium Latest Ref Range: 8.5 - 10.5 mg/dL 10.4 Phosphorus Latest Ref Range: 2.5 - 4.5 mg/dL 3.3 Magnesium Latest Ref Range: 1.8 - 2.4 mg/dL 2.0 Albumin Latest Ref Range: 3.5 - 5.0 g/dL 3.7 eGFR Latest Ref Range: >=60 mL/min/1.73m2 79 eGFR Non- Latest Ref Range: >=60 mL/min/1.73m2 65 Trina Miranda MD - 12/31/2020 7:10 PM CDT Hematology/Oncology Daily Progress Note Tali Fink is a 80yr old female admitted on 12/25/2020. 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 * Plan: Megestrol acetate 80 mg PO qid. RT ИРИНА. Add Zometa after RT. Consider Taxol/Carboplatin. Replace magnesium IV. HPI / History / ROS HPI Mrs. Fink is an 80-year-old white female patient who I have been following for 3 types of cancer. She initially had colon cancer over 20 years ago, then breast cancer, then cancer of the endometrium. So far, all of her cancers have been detected at an early stage and she never had any recurrent cancer. Since about 12/01/2020, she started having pain, initially in the right lower extremity, then left lower extremity and eventually severe lower back pain to the point that ambulation became difficult. She had x-rays and CT scans, which were unrevealing. She then had an MRI scan on 12/25/2020 showing alarge lytic lesion at S1 and S2. She was admitted for pain control. Her exam today was unchanged. She is overweight. Chest is clear. Heart sounds were irregular. Her lab work today shows a white count of 6200, hemoglobin 12, platelet count 319,000. Differential count is normal. Chemistries, glucose 124, potassium 3.2 (it was replaced by oral potassium), creatinine 0.77, magnesium 1.7 (replaced by oral magnesium). Serum protein electrophoresis is pending, CA-125 was 21, CA 15-3 was 18.6, CA 19-9 was 13, CEA was 2.7. B12 level 826, IgA 436, IgG 918, IgM 35. I did request a biopsy of the sacral mass. Dr. Bustillo from interventional radiology wanted to obtain a CT scan of the chest, abdomen and pelvis before proceeding to make sure that she did not have another lesion which would be easier to biopsy. The CT scan of the chest, abdomen and pelvis did not show any other lesions. In view of that, on 12/26/2020, the patient had a CT-guided needle aspiration of the sacral mass by Dr. Bustillo. The patient needs to stay in the hospital for IV pain medication. She cannot ambulate. On 12/27/20 she was seen by Dr Dalton. He'll do the simulation on 12/28/20. He also thinks that we should wait till the biopsy result is available to initiate treatment. On 12/27/20 I saw Mrs Fink in her hospital room. She was lying in bed. She did sit in the chairfor about 1 and 1/2 h. She continued to have severe pain when up. She did work with OT and PT. They felt that she should go to a TCU on discharge before going back home. I tended to agree. I do not hink that she would be able to come back and forth from [place] where she lives for a her daily RT. Veronica also need good pain control with oral medications before going. She continued to eat well. For now we'll continue with the IV pain medications. I think she should be kept till a final diagnosis isavailable so we can design her treatment. Probably try to switch her to oral analgesics next week. Since she is building fluids, she agreed to resume her diuretics. She gained 3 kg in 1 day. She noticed more LE edema. Her lab work showed a mild anemia at 11.3 g/dL; BUN 23 mg/dL.Albumin 3.4 g/dL. Othervalues were Nl.She was continued on oral potassium and mag replacement. I did D/C the IV fluids which I ordered for the CT scan. I re-ordered her diuretics.(Lasix 80 mg PO daily and Metolazone 2.5 mg 3days a week). On 12/28/20 Mrs Fink was seen in her hospital room. Her daughter was on speaker phone. She appeared quite comfortable. She seemed to have achieved adequate pain control with her current regimen. She had a BM. The urine was collected with a female collecting system. She did work with OT and PT. Her appetite remained good. She did notice some decreased in the feet edema and had an excellent diuresis with the oral Lasix and Metolazone. Her exam was basically unchanged except for a decrease in her LE edema. Her lab work showed a WBC of 7.3 with an ANC of 4.3; Hgb 11.2 g/dL; Plt 283,000. Glucose 121 mg/dL; albumin 3.3 g/dL. Other chemistries were WNL. I did review her case with the pathologist. Nereida we know that it is an adenocarcinoma that is ER + and NC +. We need to differentiate between breast cancer and endometrial cancer. Further special stains have been ordered and should be back by Thursday. I explained to her the importance to know the difference since her systemic therapy would be different. She seemed to understand. I did answer multiple questions and told her that we'll make final plans on Thursday when the final path report will be available. RT will start ИРИНА. I am not prescribing steroids due to her DM. If neuro deficits become a problem she might benefit from a short course of dexamethasone. Her path report came back on 12/31/20 and reads: FINAL DIAGNOSIS A. BONE, SACRAL MASS, NEEDLE CORE BIOPSY: - Metastatic adenocarcinoma, favor gynecologic primary, see comment. at 1053 DIAGNOSIS COMMENT Properly controlled PAX8, estrogen receptor, and progesterone receptor are positive, and CK7 is focally positive. Stains for GATA3, CDX2, CK20, and P63 are negative, making a breast, colon, or squamouscell primary less likely. This is favored to represent a gynecologic metastasis, given the patient'srecent endometrioid adenocarcinoma. Clinical correlation is recommended. On 12/31/20 Mrs Fink was seen in her hospital room. She remained comfortable. No pain when in bed but getting up was quite painful. She was comfortable with the current pain meds. Her exam was unchanged. Her LE edema remained under control with the oral diuretics. Her mag was low at 1.7 mg/dL and replaced IV. Her CBC was unremarkable. Glucose was 141 mg/dL. CO2: 32 mEq/L. Mag 1.7 mg/dL. Other values were WNL. I did hope that RT would start soon. Unfortunately the Pt was told that RT would start 01/09/21. I'll have to check with Dr Dalton. For now, we can start her on Megestrol acetate 80 mg PO qid. Ultimately, I would like to give her 6 cycles of Carboplatin/Taxol. I also would like to check her tumor for mutations. Perhaps she would be a candidate for immunotherapy. Review of Systems Constitutional: Positive for fatigue. Negative for appetite change, chills, diaphoresis, fever and unexpected weight change. HENT: Negative. Eyes: Negative. Respiratory: Negative. Cardiovascular: Positive for leg swelling. Negative for chest pain and palpitations. Gastrointestinal: Negative. Endocrine: Negative. Genitourinary: Negative. Musculoskeletal: Positive for back pain. Skin: Negative. Neurological: Positive for extremity weakness. Hematological: Negative. Psychiatric/Behavioral: Negative. Physical / Results Current Vital Signs Temp: 97.9 F (36.6 C) BP: 120/58 Weight: 123.6 kg (272 lb 7.8 oz) SpO2: 92 % Resp: 18 Pulse: 79 Current BMI (>50 = increased risk): (!) 45.89 O2 Device: Room Air O2 Flow Rate (L/min): 2 l/min Pain Ratin Maximum Temperatures (last 24 hours) Temperature Maximum Max Temp 97.9 F (36.6 C) Intake and Output: 12/30 0700 - 12/31 0659 In: - Out: 450 [Urine:450] Physical Exam Constitutional: General: She is not in acute distress. Appearance: She is obese. She is not ill-appearing, toxic-appearing or diaphoretic. HENT: Head: Normocephalic. Nose: Nose normal. Mouth/Throat: Mouth: Mucous membranes are moist. Pharynx: Oropharynx is clear. No oropharyngeal exudate. Eyes: General: No scleral icterus. Conjunctiva/sclera: Conjunctivae normal. Pupils: Pupils are equal, round, and reactive to light. Neck: Musculoskeletal: Normal range of motion. Cardiovascular: Rate and Rhythm: Normal rate and regular rhythm. Heart sounds: No murmur. Pulmonary: Effort: Pulmonary effort is normal. Breath sounds: Normal breath sounds. Abdominal: General: Abdomen is flat. Bowel sounds are normal. Palpations: Abdomen is soft. Musculoskeletal: Normal range of motion. General: Swelling present. Right lower leg: Edema present. Left lower leg: Edema present. Skin: General: Skin is warm and dry. Coloration: Skin is pale. Skin is not jaundiced. Findings: No lesion or rash. Neurological: General: No focal deficit present. Mental Status: She is alert. Psychiatric: Mood and Affect: Mood normal. Results for TALI FINK ( ) as of 12/31/2020 19:16 Ref. Range 12/31/2020 05:02 WBC Latest Ref Range: 4.0 - 11.0 K/uL 7.9 RBC Latest Ref Range: 3.80 - 5.30 M/uL 3.47 (L) Hemoglobin Latest Ref Range: 11.5 - 15.8 g/dL 12.7 Hematocrit Latest Ref Range: 35.0 - 45.0 % 35.6 MCV Latest Ref Range: 80.0 - 98.0 fL 102.6 (H) MCH Latest Ref Range: 25.5 - 34.0 pg 36.6 (H) MCHC Latest Ref Range: 31.5 - 36.5 g/dL 35.7 RDW-CV Latest Ref Range: 11.5 - 15.5 % 17.2 (H) RDW-SD Latest Ref Range: 35.5 - 50.0 fl 51.1 (H) Platelet Count Latest Ref Range: 140 - 400 K/uL 286 MPV Latest Ref Range: 8.5 - 12.0 fL 11.2 Seg Neut Absolute Latest Ref Range: 1.8 - 8.0 K/uL 5.4 Lymphocytes Absolute Latest Ref Range: 0.8 - 4.1 K/uL 1.4 Monocytes Absolute Latest Ref Range: 0.0 - 1.0 K/uL 0.7 Eosinophils Absolute Latest Ref Range: 0.0 - 0.7 K/uL 0.4 Basophil Absolute Latest Ref Range: 0.0 - 0.2 K/uL 0.1 Immature Granulocyte Absolute Latest Ref Range: 0.00 - 0.06 K/uL 0.02 Neutrophils Percent Latest Units: % 68.1 Neutrophils Abs. (Segs and Bands) Latest Units: /uL 5,400 Lymphocytes Percent Latest Units: % 17.6 Monocytes Percent Latest Units: % 8.2 Immature Granulocyte Percent Latest Units: % 0.3 Eosinophils Percent Latest Units: % 5.2 Basophil Percent Latest Units: % 0.6 Nucleated RBC Latest Units: /100 WBC's 0 Glucose Latest Ref Range: 70 - 100 mg/dL 141 (H) Sodium Latest Ref Range: 135 - 145 meq/L 141 Potassium Latest Ref Range: 3.5 - 5.3 meq/L 3.8 Chloride Latest Ref Range: 99 - 110 meq/L 99 CO2 Latest Ref Range: 20 - 29 meq/L 32 (H) Anion Gap with K Latest Ref Range: 6 - 20 meq/L 14 BUN Latest Ref Range: 6 - 22 mg/dL 24 (H) Creatinine Latest Ref Range: 0.60 - 1.10 mg/dL 0.82 BUN/Creatinine Ratio Latest Ref Range: 10.0 - 25.0 29.3 (H) Calcium Latest Ref Range: 8.5 - 10.5 mg/dL 10.1 Corrected Calcium Latest Ref Range: 8.5 - 10.5 mg/dL 10.3 Phosphorus Latest Ref Range: 2.5 - 4.5 mg/dL 3.6 Magnesium Latest Ref Range: 1.8 - 2.4 mg/dL 1.7 (L) Albumin Latest Ref Range: 3.5 - 5.0 g/dL 3.7 eGFR Latest Ref Range: >=60 mL/min/1.73m2 81 eGFR Non- Latest Ref Range: >=60 mL/min/1.73m2 67 Darrin Luong MD - 12/30/2020 9:02 AM CDTNAME: Taliadan [place] Aleks : 1940 AGE: 80yr ADMISSION DATE: 12/25/2020. 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 * Tali's pain is currently well controlled with the fentanyl patch and the as needed IV Dilaudid. She used a total of 2 mg IV Dilaudid yesterday. Per Dr Miranda will wait until next week to start transitioning off IV pain medication once her radiation treatment has started. She had one bowel movement yesterday. We'll continue with daily MiraLAX to prevent constipation while on the narcotics. Continue her home diuretics with Lasix 80 mg daily and metolazone 2.5 mg 3 days a week. We'll monitor her weight daily. Potassium low today at 3.2. Magnesium normal at 1.8. We'll increase her potassium supplement to 40mEq twice a day. Continue magnesium supplement at current dose. Check labs daily due to her diuretics. Correction scale insulin as needed for her glucose. She only required 2 units of insulin yesterday. HPI / History / ROS INTERVAL HISTORY Tali Fink reports feeling about the same as yesterday other than not sleeping well overnight. She did have one good bowel movement yesterday. Pain continues to be well controlled as long she is in bed with infrequent doses of IV Dilantin. She did get up out of the bed once into the chair and this was very painful. Continues to drink well without any nausea or vomiting. Physical / Results PHYSICAL EXAM Current Vital Signs BP 113/51 Pulse 72 Temp 97.6 F (36.4 C) Resp 18 Ht 1.676 m (5' 6") Wt 123.5 kg (272 lb 4.8 oz) SpO2 95% BMI 43.95 kg/m2 Body mass index is 43.95 kg/m. Body surface area is 2.4 meters squared. General: 80yr old female in no acute distress, answering questions appropriately Psych: Appropriate mood and affect Eyes: Sclera anicteric Mouth: No oral lesions or thrush appreciated CV: RRR, no murmurs/rubs/gallops appreciated Respiratory: Clear to auscultation bilaterally, breathing comfortably GI: abdomen soft, non-tender, non-distended Extremities: Significant lymphedema in lower extremity bilaterally LABS/IMAGING I have personally reviewed the pertinent laboratory studies A total of 20 minutes was spent with the patient and on the floor today, greater than 50% of which was spent in medical decision making, counseling, and coordination of care. Signed by: Darrin Archibald MD 12/30/2020 9:02 AM CDT [facility] Darrin lovelace MD - 12/29/2020 8:37 AM CDTNAME: Tali Fink : 1940 AGE: 80yr ADMISSION DATE: 12/25/2020. 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 * Tali's pain is currently well controlled with the fentanyl patch and as needed IV Dilaudid 0.5 mgto 1 mg. She used 3.5 mg total yesterday. Per Dr Miranda will wait until next week to start transitioning off IV pain medication once her radiation has started. No BM yesterday, she reports taking MiraLAX daily at home. I will order for daily MiraLAX. If no bowel movement by later today I instructed her nurse to give her Senokot as well. Her home diuretics were restarted yesterday with good diuresis, not -3.7 L. We'll continue her homediuretics of Lasix 80 mg daily and metolazone 2.5 mg 3 days a week. We'll monitor her weight and ins and outs daily. Potassium normal 3.5. Magnesium normal 1.8. Will continue potassium supplement 20 mEq twice a day and continue magnesium supplement. Check labs daily due to diuresis. Glucose has remained well controlled between 88 and 143 without needing any insulin. HPI / History / ROS INTERVAL HISTORY Tali Fink reports overall feeling the same as yesterday. Her pain is well-controlled with the as needed IV hydromorphone. She used a total of 3.5 mg over past 24 hours. No bowel movement yesterday. She had 1 bowel movement 2 days ago. Typically she has a bowel movement daily or every other day. She uses MiraLAX once daily at home. She has not received anything for her bowels yet here in the hospital. Her home diuretics restarted yesterday and she diuresed well. She is eatingwell. No nausea or vomiting. She was only able to get up to the chair once yesterday as it was quite painful getting in and out of the bed. Physical / Results PHYSICAL EXAM Current Vital Signs BP 111/59 Pulse 71 Temp 97.7 F (36.5 C) Resp 18 Ht 1.676 m (5' 6") Wt 125 kg (275 lb 9.2 oz) SpO2 92% BMI 44.48 kg/m2 Body mass index is 44.48 kg/m. Body surface area is 2.41 meters squared. General: 80yr old female lying in bed in no acute distress, answering questions appropriately Psych: Appropriate mood and affect Eyes: Sclera anicteric Mouth: No oral lesions or thrush appreciated CV: RRR, no murmurs/rubs/gallops appreciated Respiratory: Clear to auscultation bilaterally, breathing comfortably on room air GI: abdomen soft, non-tender, non-distended Extremities: Significant lymphedema in bilateral lower extremities LABS/IMAGING I have personally reviewed the pertinent laboratory studies. A total of 29 minutes was spent with the patient and on the floor today, greater than 50% of which was spent in medical decision making, counseling, and coordination of care. Signed by: Darrin Archibald MD 12/29/2020 8:37 AM CDT [facility] Trina Rosado MD - 12/28/2020 5:04 PM CDT Hematology/Oncology Daily Progress Note Tali Fink is a 80yr old female admitted on 12/25/2020. 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 * Plan: Start RT ИРИНА. Find a local TCU during RT. Systemic treatment will depend on the nature of the cancer. HPI / History / ROS HPI Mrs. Fink is an 80-year-old white female patient who I have been following for 3 types of cancer. She initially had colon cancer over 20 years ago, then breast cancer, then cancer of the endometrium. So far, all of her cancers have been detected at an early stage and she never had any recurrent cancer. Since about 12/01/2020, she started having pain, initially in the right lower extremity, then left lower extremity and eventually severe lower back pain to the point that ambulation became difficult. She had x-rays and CT scans, which were unrevealing. She then had an MRI scan on 12/25/2020 showing alarge lytic lesion at S1 and S2. She was admitted for pain control. Her exam today was unchanged. She is overweight. Chest is clear. Heart sounds were irregular. Her lab work today shows a white count of 6200, hemoglobin 12, platelet count 319,000. Differential count is normal. Chemistries, glucose 124, potassium 3.2 (it was replaced by oral potassium), creatinine 0.77, magnesium 1.7 (replaced by oral magnesium). Serum protein electrophoresis is pending, CA-125 was 21, CA 15-3 was 18.6, CA 19-9 was 13, CEA was 2.7. B12 level 826, IgA 436, IgG 918, IgM 35. I did request a biopsy of the sacral mass. Dr. Bustillo from interventional radiology wanted to obtain a CT scan of the chest, abdomen and pelvis before proceeding to make sure that she did not have another lesion which would be easier to biopsy. The CT scan of the chest, abdomen and pelvis did not show any other lesions. In view of that, on 12/26/2020, the patient had a CT-guided needle aspiration of the sacral mass by Dr. Bustillo. The patient needs to stay in the hospital for IV pain medication. She cannot ambulate. On 12/27/20 she was seen by Dr Dalton. He'll do the simulation on 12/28/20. He also thinks that we should wait till the biopsy result is available to initiate treatment. On 12/27/20 I saw Mrs Fink in her hospital room. She was lying in bed. She did sit in the chairfor about 1 and 1/2 h. She continued to have severe pain when up. She did work with OT and PT. They felt that she should go to a TCU on discharge before going back home. I tended to agree. I do not hink that she would be able to come back and forth from [place] where she lives for a her daily RT. Veronica also need good pain control with oral medications before going. She continued to eat well. For now we'll continue with the IV pain medications. I think she should be kept till a final diagnosis isavailable so we can design her treatment. Probably try to switch her to oral analgesics next week. Since she is building fluids, she agreed to resume her diuretics. She gained 3 kg in 1 day. She noticed more LE edema. Her lab work showed a mild anemia at 11.3 g/dL; BUN 23 mg/dL.Albumin 3.4 g/dL. Othervalues were Nl.She was continued on oral potassium and mag replacement. I did D/C the IV fluids which I ordered for the CT scan. I re-ordered her diuretics.(Lasix 80 mg PO daily and Metolazone 2.5 mg 3days a week). On 12/28/20 Mrs Fink was seen in her hospital room. Her daughter was on speaker phone. She appeared quite comfortable. She seemed to have achieved adequate pain control with her current regimen. She had a BM. The urine was collected with a female collecting system. She did work with OT and PT. Her appetite remained good. She did notice some decreased in the feet edema and had an excellent diuresis with the oral Lasix and Metolazone. Her exam was basically unchanged except for a decrease in her LE edema. Her lab work showed a WBC of 7.3 with an ANC of 4.3; Hgb 11.2 g/dL; Plt 283,000. Glucose 121 mg/dL; albumin 3.3 g/dL. Other chemistries were WNL. I did review her case with the pathologist. Nereida we know that it is an adenocarcinoma that is ER + and NC +. We need to differentiate between breast cancer and endometrial cancer. Further special stains have been ordered and should be back by Thursday. I explained to her the importance to know the difference since her systemic therapy would be different. She seemed to understand. I did answer multiple questions and told her that we'll make final plans on Thursday when the final path report will be available. RT will start ИРИНА. I am not prescribing steroids due to her DM. If neuro deficits become a problem she might benefit from a short course of dexamethasone. Her prognosis is guarded at this time. All will depend on the nature of the malignancy affecting her sacrum. Review of Systems Constitutional: Positive for fatigue and unexpected weight change. Negative for chills, diaphoresis and fever. HENT: Negative. Eyes: Negative. Respiratory: Negative. Cardiovascular: Positive for leg swelling. Negative for chest pain and palpitations. Gastrointestinal: Negative. Endocrine: Negative. Genitourinary: Negative. Musculoskeletal: Positive for back pain and gait problem. Negative for arthralgias and neck pain. Skin: Negative. Neurological: Positive for extremity weakness and gait problem. Hematological: Negative. Psychiatric/Behavioral: Negative. Physical / Results Current Vital Signs Temp: 97.1 F (36.2 C) BP: 122/63 Weight: 127.3 kg (280 lb 11.2 oz) SpO2: 94 % Resp: 18 Pulse: 67 Current BMI (>50 = increased risk): (!) 45.89 O2 Device: Room Air O2 Flow Rate (L/min): 2 l/min Pain Ratin Maximum Temperatures (last 24 hours) Temperature Maximum Max Temp 97.1 F (36.2 C) Intake and Output: 12/27 0700 - 12/28 0659 In: 1772 [Oral:1280] Out: 600 [Urine:600] Physical Exam Constitutional: General: She is not in acute distress. Appearance: She is obese. She is not ill-appearing, toxic-appearing or diaphoretic. HENT: Head: Normocephalic. Nose: Nose normal. Mouth/Throat: Mouth: Mucous membranes are moist. Pharynx: Oropharynx is clear. No oropharyngeal exudate. Eyes: General: No scleral icterus. Conjunctiva/sclera: Conjunctivae normal. Pupils: Pupils are equal, round, and reactive to light. Neck: Musculoskeletal: Normal range of motion. No neck rigidity. Cardiovascular: Rate and Rhythm: Normal rate and regular rhythm. Heart sounds: No murmur. Pulmonary: Effort: Pulmonary effort is normal. Breath sounds: Normal breath sounds. Abdominal: General: Abdomen is flat. Bowel sounds are normal. Palpations: Abdomen is soft. Musculoskeletal: Normal range of motion. General: Swelling present. Right lower leg: Edema present. Left lower leg: Edema present. Skin: General: Skin is warm and dry. Coloration: Skin is pale. Skin is not jaundiced. Findings: No bruising, erythema or rash. Neurological: General: No focal deficit present. Mental Status: She is alert. Psychiatric: Mood and Affect: Mood normal. Results for TALI FINK ( ) as of 12/29/2020 08:14 Ref. Range 12/28/2020 05:47 WBC Latest Ref Range: 4.0 - 11.0 K/uL 7.3 RBC Latest Ref Range: 3.80 - 5.30 M/uL 3.46 (L) Hemoglobin Latest Ref Range: 11.5 - 15.8 g/dL 11.2 (L) Hematocrit Latest Ref Range: 35.0 - 45.0 % 34.4 (L) MCV Latest Ref Range: 80.0 - 98.0 fL 99.4 (H) MCH Latest Ref Range: 25.5 - 34.0 pg 32.4 MCHC Latest Ref Range: 31.5 - 36.5 g/dL 32.6 RDW-CV Latest Ref Range: 11.5 - 15.5 % 14.8 RDW-SD Latest Ref Range: 35.5 - 50.0 fl 50.2 (H) Platelet Count Latest Ref Range: 140 - 400 K/uL 283 MPV Latest Ref Range: 8.5 - 12.0 fL 10.6 Seg Neut Absolute Latest Ref Range: 1.8 - 8.0 K/uL 4.3 Lymphocytes Absolute Latest Ref Range: 0.8 - 4.1 K/uL 1.7 Monocytes Absolute Latest Ref Range: 0.0 - 1.0 K/uL 0.7 Eosinophils Absolute Latest Ref Range: 0.0 - 0.7 K/uL 0.5 Basophil Absolute Latest Ref Range: 0.0 - 0.2 K/uL 0.1 Immature Granulocyte Absolute Latest Ref Range: 0.00 - 0.06 K/uL 0.01 Neutrophils Percent Latest Units: % 58.9 Neutrophils Abs. (Segs and Bands) Latest Units: /uL 4,300 Lymphocytes Percent Latest Units: % 23.0 Monocytes Percent Latest Units: % 9.5 Immature Granulocyte Percent Latest Units: % 0.1 Eosinophils Percent Latest Units: % 7.3 Basophil Percent Latest Units: % 1.2 Nucleated RBC Latest Units: /100 WBC's 0 Glucose Latest Ref Range: 70 - 100 mg/dL 121 (H) Sodium Latest Ref Range: 135 - 145 meq/L 140 Potassium Latest Ref Range: 3.5 - 5.3 meq/L 3.9 Chloride Latest Ref Range: 99 - 110 meq/L 108 CO2 Latest Ref Range: 20 - 29 meq/L 27 Anion Gap with K Latest Ref Range: 6 - 20 meq/L 9 BUN Latest Ref Range: 6 - 22 mg/dL 21 Creatinine Latest Ref Range: 0.60 - 1.10 mg/dL 0.72 BUN/Creatinine Ratio Latest Ref Range: 10.0 - 25.0 29.2 (H) Calcium Latest Ref Range: 8.5 - 10.5 mg/dL 9.3 Corrected Calcium Latest Ref Range: 8.5 - 10.5 mg/dL 9.9 Phosphorus Latest Ref Range: 2.5 - 4.5 mg/dL 3.8 Magnesium Latest Ref Range: 1.8 - 2.4 mg/dL 2.0 Albumin Latest Ref Range: 3.5 - 5.0 g/dL 3.3 (L) eGFR Latest Ref Range: >=60 mL/min/1.73m2 >90 eGFR Non- Latest Ref Range: >=60 mL/min/1.73m2 78 I spent a total of 45 minutes on the patient's care today including preparing for the visit, the visit, documentation, and follow-up care. This does not include any procedure time. Trina Miranda MD - 12/27/2020 7:05 PM CDT Hematology/Oncology Daily Progress Note Tali Fink is a 80yr old female admitted on 12/25/2020. 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 * Plan: OT and PT. Await biopsy result to initiate treatment. May need to go to a TCU in [place] during RT. HPI / History / ROS HPI Mrs. Fink is an 80-year-old white female patient who I have been following for 3 types of cancer. She initially had colon cancer over 20 years ago, then breast cancer, then cancer of the endometrium. So far, all of her cancers have been detected at an early stage and she never had any recurrent cancer. Since about 12/01/2020, she started having pain, initially in the right lower extremity, then left lower extremity and eventually severe lower back pain to the point that ambulation became difficult. She had x-rays and CT scans, which were unrevealing. She then had an MRI scan on 12/25/2020 showing a large lytic lesion at S1 and S2. She was admitted for pain control. Her exam today was unchanged. She is overweight. Chest is clear. Heart sounds were irregular. Her lab work today shows a white count of 6200, hemoglobin 12, platelet count 319,000. Differential count is normal. Chemistries, glucose 124, potassium 3.2 (it was replaced by oral potassium), creatinine 0.77, magnesium 1.7 (replaced by oral magnesium). Serum protein electrophoresis is pending, CA-125 was 21, CA 15-3 was 18.6, CA 19-9 was 13, CEA was 2.7. B12 level 826, IgA 436, IgG 918, IgM 35. I did request a biopsy of the sacral mass. Dr. Bustillo from interventional radiology wanted to obtain a CT scan of the chest, abdomen and pelvis before proceeding to make sure that she did not have another lesion which would be easier to biopsy. The CT scan of the chest, abdomen and pelvis did not show any other lesions. In view of that, on 12/26/2020, the patient had a CT-guided needle aspiration of the sacral mass by Dr. Bustillo. The patient needs to stay in the hospital for IV pain medication. She cannot ambulate. On 12/27/20 she was seen by Dr Dalton. He'll do the simulation on 12/28/20. He also thinks that we should wait till the biopsy result is available to initiate treatment. On 12/27/20 I saw Mrs Fink in her hospital room. She was lying in bed. She did sit in the chairfor about 1 and 1/2 h. She continued to have severe pain when up. She did work with OT and PT. They felt that she should go to a TCU on discharge before going back home. I tended to agree. I do not hink that she would be able to come back and forth from [place] where she lives for a her daily RT. Veronica also need good pain control with oral medications before going. She continued to eat well. For now we'll continue with the IV pain medications. I think she should be kept till a final diagnosis isavailable so we can design her treatment. Probably try to switch her to oral analgesics next week. Since she is building fluids, she agreed to resume her diuretics. She gained 3 kg in 1 day. She noticed more LE edema. Her lab work showed a mild anemia at 11.3 g/dL; BUN 23 mg/dL.Albumin 3.4 g/dL. Othervalues were Nl.She was continued on oral potassium and mag replacement. I did D/C the IV fluids which I ordered for the CT scan. I re-ordered her diuretics.(Lasix 80 mg PO daily and Metolazone 2.5 mg 3days a week). Her prognosis is guarded at this time. All will depend on the nature of the malignancy affecting her sacrum. Review of Systems Constitutional: Positive for fatigue. Negative for appetite change, chills, diaphoresis, fever and unexpected weight change. HENT: Negative. Eyes: Negative. Respiratory: Negative. Cardiovascular: Positive for leg swelling. Negative for chest pain and palpitations. Gastrointestinal: Negative. Endocrine: Negative. Genitourinary: Negative. Musculoskeletal: Positive for back pain. Skin: Negative. Neurological: Positive for extremity weakness. Hematological: Negative. Psychiatric/Behavioral: Negative. Physical / Results Current Vital Signs Temp: 97.9 F (36.6 C) BP: 104/51 Weight: 127.3 kg (280 lb 11.2 oz) SpO2: 93 % Resp: 18 Pulse: 73 Current BMI (>50 = increased risk): (!) 45.89 O2 Device: Room Air O2 Flow Rate (L/min): 2 l/min Pain Ratin Maximum Temperatures (last 24 hours) Temperature Maximum Max Temp 98 F (36.7 C) Intake and Output: 12/26 0700 - 12/27 0659 In: 919 Out: 800 [Urine:800] Physical Exam Constitutional: General: She is not in acute distress. Appearance: She is obese. She is not ill-appearing, toxic-appearing or diaphoretic. HENT: Head: Normocephalic. Nose: Nose normal. Mouth/Throat: Mouth: Mucous membranes are moist. Pharynx: Oropharynx is clear. No oropharyngeal exudate. Eyes: General: No scleral icterus. Conjunctiva/sclera: Conjunctivae normal. Pupils: Pupils are equal, round, and reactive to light. Neck: Musculoskeletal: Normal range of motion. Cardiovascular: Rate and Rhythm: Normal rate and regular rhythm. Heart sounds: No murmur. Pulmonary: Effort: Pulmonary effort is normal. Breath sounds: Normal breath sounds. Abdominal: General: Abdomen is flat. Bowel sounds are normal. Palpations: Abdomen is soft. Musculoskeletal: Normal range of motion. General: Swelling present. Right lower leg: Edema present. Left lower leg: Edema present. Skin: General: Skin is warm. Coloration: Skin is pale. Skin is not jaundiced. Findings: No bruising, erythema, lesion or rash. Neurological: General: No focal deficit present. Mental Status: She is alert. Psychiatric: Mood and Affect: Mood normal. Results for TALI FINK ( ) as of 12/28/2020 07:58 Ref. Range 12/27/2020 07:38 WBC Latest Ref Range: 4.0 - 11.0 K/uL 6.4 RBC Latest Ref Range: 3.80 - 5.30 M/uL 3.55 (L) Hemoglobin Latest Ref Range: 11.5 - 15.8 g/dL 11.3 (L) Hematocrit Latest Ref Range: 35.0 - 45.0 % 35.1 MCV Latest Ref Range: 80.0 - 98.0 fL 98.9 (H) MCH Latest Ref Range: 25.5 - 34.0 pg 31.8 MCHC Latest Ref Range: 31.5 - 36.5 g/dL 32.2 RDW-CV Latest Ref Range: 11.5 - 15.5 % 15.6 (H) RDW-SD Latest Ref Range: 35.5 - 50.0 fl 49.8 Platelet Count Latest Ref Range: 140 - 400 K/uL 299 MPV Latest Ref Range: 8.5 - 12.0 fL 10.7 Seg Neut Absolute Latest Ref Range: 1.8 - 8.0 K/uL 4.1 Lymphocytes Absolute Latest Ref Range: 0.8 - 4.1 K/uL 1.3 Monocytes Absolute Latest Ref Range: 0.0 - 1.0 K/uL 0.6 Eosinophils Absolute Latest Ref Range: 0.0 - 0.7 K/uL 0.3 Basophil Absolute Latest Ref Range: 0.0 - 0.2 K/uL 0.1 Immature Granulocyte Absolute Latest Ref Range: 0.00 - 0.06 K/uL 0.02 Neutrophils Percent Latest Units: % 64.0 Neutrophils Abs. (Segs and Bands) Latest Units: /uL 4,100 Lymphocytes Percent Latest Units: % 20.9 Monocytes Percent Latest Units: % 8.8 Immature Granulocyte Percent Latest Units: % 0.3 Eosinophils Percent Latest Units: % 5.2 Basophil Percent Latest Units: % 0.8 Nucleated RBC Latest Units: /100 WBC's 0 Glucose Latest Ref Range: 70 - 100 mg/dL 96 Sodium Latest Ref Range: 135 - 145 meq/L 141 Potassium Latest Ref Range: 3.5 - 5.3 meq/L 3.7 Chloride Latest Ref Range: 99 - 110 meq/L 106 CO2 Latest Ref Range: 20 - 29 meq/L 26 Anion Gap with K Latest Ref Range: 6 - 20 meq/L 13 BUN Latest Ref Range: 6 - 22 mg/dL 23 (H) Creatinine Latest Ref Range: 0.60 - 1.10 mg/dL 0.83 BUN/Creatinine Ratio Latest Ref Range: 10.0 - 25.0 27.7 (H) Calcium Latest Ref Range: 8.5 - 10.5 mg/dL 9.2 Corrected Calcium Latest Ref Range: 8.5 - 10.5 mg/dL 9.7 Phosphorus Latest Ref Range: 2.5 - 4.5 mg/dL 3.6 Magnesium Latest Ref Range: 1.8 - 2.4 mg/dL 1.8 Albumin Latest Ref Range: 3.5 - 5.0 g/dL 3.4 (L) eGFR Latest Ref Range: >=60 mL/min/1.73m2 80 eGFR Non- Latest Ref Range: >=60 mL/min/1.73m2 66 Trina Miranda MD - 12/26/2020 6:09 PM CDT Hematology/Oncology Daily Progress Note Tali Fink is a 80yr old female admitted on 12/25/2020. 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 * Plan: Await result of the biopsy. Continue IV pain meds. HPI / History / ROS HPI Mrs. Fink is an 80-year-old white female patient who I have been following for 3 types of cancer. She initially had colon cancer over 20 years ago, then breast cancer, then cancer of the endometrium. So far, all of her cancers have been detected at an early stage and she never had any recurrent cancer. Since about 12/01/2020, she started having pain, initially in the right lower extremity, then left lower extremity and eventually severe lower back pain to the point that ambulation became difficult. She had x-rays and CT scans, which were unrevealing. She then had an MRI scan on 12/25/2020 showing a large lytic lesion at S1 and S2. She was admitted for pain control. Her exam today was unchanged. She is overweight. Chest is clear. Heart sounds were irregular. Her lab work today shows a white count of 6200, hemoglobin 12, platelet count 319,000. Differential count is normal. Chemistries, glucose 124, potassium 3.2 (it was replaced by oral potassium), creatinine 0.77, magnesium 1.7 (replaced by oral magnesium). Serum protein electrophoresis is pending, CA-125 was 21, CA 15-3 was 18.6, CA 19-9 was 13, CEA was 2.7. B12 level 826, IgA 436, IgG 918, IgM 35. I did request a biopsy of the sacral mass. Dr. Bustillo from interventional radiology wanted to obtain a CT scan of the chest, abdomen and pelvis before proceeding to make sure that she did not have another lesion which would be easier to biopsy. The CT scan of the chest, abdomen and pelvis did not show any other lesions. In view of that, on 12/26/2020, the patient had a CT-guided needle aspiration of the sacral mass by Dr. Bustillo. The patient needs to stay in the hospital for IV pain medication. She cannot ambulate. Her prognosis is guarded at this time. All will depend on the nature of the malignancy affecting her sacrum. 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 Negative for appetite change, chills, diaphoresis, fever and unexpected weight change. HENT: Negative. Eyes: Negative. Respiratory: Negative. Cardiovascular: Negative. Gastrointestinal: Negative. Endocrine: Negative. Genitourinary: Positive for bladder incontinence and difficulty urinating. Musculoskeletal: Positive for back pain and gait problem. Skin: Negative. Neurological: Positive for extremity weakness and gait problem. Hematological: Negative. Psychiatric/Behavioral: Negative. Physical / Results Current Vital Signs Temp: 98.3 F (36.8 C) BP: 139/62 Weight: 124.3 kg (274 lb) SpO2: 92 % Resp: 20 Pulse: 67 Current BMI (>50 = increased risk): (!) 45.89 O2 Device: Room Air O2 Flow Rate (L/min): 2 l/min Pain Ratin Maximum Temperatures (last 24 hours) Temperature Maximum Max Temp 98.3 F (36.8 C) Intake and Output: 12/25 0700 - 12/26 0659 In: - Out: 300 [Urine:300] Physical Exam Constitutional: Appearance: She is obese. She is not toxic-appearing or diaphoretic. HENT: Head: Normocephalic and atraumatic. Nose: Nose normal. Mouth/Throat: Mouth: Mucous membranes are moist. Pharynx: Oropharynx is clear. No oropharyngeal exudate. Eyes: General: No scleral icterus. Conjunctiva/sclera: Conjunctivae normal. Pupils: Pupils are equal, round, and reactive to light. Neck: Musculoskeletal: Normal range of motion. Cardiovascular: Rate and Rhythm: Normal rate and regular rhythm. Heart sounds: No murmur. Pulmonary: Effort: Pulmonary effort is normal. No respiratory distress. Breath sounds: No stridor. No wheezing, rhonchi or rales. Chest: Chest wall: No tenderness. Abdominal: General: Abdomen is flat. Bowel sounds are normal. Palpations: Abdomen is soft. Musculoskeletal: Normal range of motion. General: No swelling or tenderness. Skin: General: Skin is warm and dry. Neurological: General: No focal deficit present. Mental Status: She is alert. Psychiatric: Mood and Affect: Mood normal. Results for TALI FINK ( ) as of 12/26/2020 18:12 Ref. Range 12/26/2020 07:11 WBC Latest Ref Range: 4.0 - 11.0 K/uL 6.2 RBC Latest Ref Range: 3.80 - 5.30 M/uL 3.30 (L) Hemoglobin Latest Ref Range: 11.5 - 15.8 g/dL 12.0 Hematocrit Latest Ref Range: 35.0 - 45.0 % 34.0 (L) MCV Latest Ref Range: 80.0 - 98.0 fL 103.0 (H) MCH Latest Ref Range: 25.5 - 34.0 pg 36.4 (H) MCHC Latest Ref Range: 31.5 - 36.5 g/dL 35.3 RDW-CV Latest Ref Range: 11.5 - 15.5 % 17.9 (H) RDW-SD Latest Ref Range: 35.5 - 50.0 fl 49.0 Platelet Count Latest Ref Range: 140 - 400 K/uL 319 MPV Latest Ref Range: 8.5 - 12.0 fL 10.8 Seg Neut Absolute Latest Ref Range: 1.8 - 8.0 K/uL 4.8 Lymphocytes Absolute Latest Ref Range: 0.8 - 4.1 K/uL 0.9 Monocytes Absolute Latest Ref Range: 0.0 - 1.0 K/uL 0.4 Eosinophils Absolute Latest Ref Range: 0.0 - 0.7 K/uL 0.0 Basophil Absolute Latest Ref Range: 0.0 - 0.2 K/uL 0.0 Immature Granulocyte Absolute Latest Ref Range: 0.00 - 0.06 K/uL 0.02 Neutrophils Percent Latest Units: % 77.5 Neutrophils Abs. (Segs and Bands) Latest Units: /uL 4,800 Lymphocytes Percent Latest Units: % 15.2 Monocytes Percent Latest Units: % 6.6 Immature Granulocyte Percent Latest Units: % 0.3 Eosinophils Percent Latest Units: % 0.2 Basophil Percent Latest Units: % 0.2 Nucleated RBC Latest Units: /100 WBC's 0 Glucose Latest Ref Range: 70 - 100 mg/dL 124 (H) Sodium Latest Ref Range: 135 - 145 meq/L 141 Potassium Latest Ref Range: 3.5 - 5.3 meq/L 3.2 (L) Chloride Latest Ref Range: 99 - 110 meq/L 101 CO2 Latest Ref Range: 20 - 29 meq/L 29 Anion Gap with K Latest Ref Range: 6 - 20 meq/L 14 BUN Latest Ref Range: 6 - 22 mg/dL 20 Creatinine Latest Ref Range: 0.60 - 1.10 mg/dL 0.77 BUN/Creatinine Ratio Latest Ref Range: 10.0 - 25.0 26.0 (H) Calcium Latest Ref Range: 8.5 - 10.5 mg/dL 9.8 Corrected Calcium Latest Ref Range: 8.5 - 10.5 mg/dL 10.1 Phosphorus Latest Ref Range: 2.5 - 4.5 mg/dL 3.9 Magnesium Latest Ref Range: 1.8 - 2.4 mg/dL 1.7 (L) Protein Total Latest Ref Range: 6.0 - 8.2 g/dL 6.5 Albumin Latest Ref Range: 3.5 - 5.0 g/dL 3.6 eGFR Latest Ref Range: >=60 mL/min/1.73m2 87 eGFR Non- Latest Ref Range: >=60 mL/min/1.73m2 72 PROTEIN SERUM ELECTROPHORESIS, REFLEX TO IMMUNOFIX Unknown Rpt LAB ONLY - ELECTROPHORESIS, SERUM REFLEX IMMUNOFIX Unknown Rpt LAB ONLY - TOTAL PROTEIN EPP Unknown Rpt CA 125 . Latest Ref Range: 0 - 35 U/mL 21 CA 15-3 Latest Ref Range: 0.0 - 31.0 U/mL 18.6 CA 19-9 Latest Ref Range: 0 - 37 U/mL 13 CEA Latest Ref Range: 0.0 - 3.0 ng/mL 2.7 Vitamin B12 Latest Ref Range: 200-1,000 pg/mL 826 IgA Latest Ref Range: 70 - 400 mg/dL 436 (H) IgG Latest Ref Range: 700-1,600 mg/dL 938 IgM Latest Ref Range: 40 - 230 mg/dL 35 (L) EXAM: CT ABDOMEN PELVIS WITH CONTRAST, CT CHEST WITH CONTRAST INDICATION:Cancer of unknown primary, staging, Metastatic cancer. COMPARISON(S): MRI from 12/25/2020. TECHNIQUE: Axial ct imaging was performed through the chest, abdomen and pelvis following IV contrast. Sagittal and coronal reformats were performed. FINDINGS: CHEST: Postsurgical changes with axillary clips and clips along the posterior left breast. Cardiac size is stable. No pericardial fluid. No pleural fluid. No evidence for any enlarged thoracic adenopathy. Tracheobronchial tree is patent. Overall heterogeneous appearance of the thyroid gland with multiple hypodense nodules on the left. Relative atrophy of the right thyroid lobe relative to the left. Evaluation under lung windows reveals some scattered scarring. There are some mild basilar atelectasis. Lungs are otherwise clear. No evidence for any suspicious nodules or masses. Stable 4 mm right upper lobe posterior located nodule image 15 severe degenerative change of the left glenohumeral joint. Healing anterior lateral right fifth rib fracture. ABDOMEN: Liver stable appearance including a hypodense/cystic lesion within the right hepatic lobe, image 121. Gallbladder surgically absent. Slight intrahepatic ductal prominence stable. Spleen, pancreas and adrenal glands are within normal limits. Kidneys enhance symmetrically. Bilateral renal cysts noted. No hydronephrotic changes or perinephric fluid. No dilated small bowel loops. Small hiatal hernia. No evidence for any enlarged abdominal or retroperitoneal lymph nodes. Fat-containing periumbilical hernia. PELVIS: Urinary bladder is unremarkable. Uterus is surgically absent. There is moderate presacral stranding noted. No evidence for any abnormal pelvic adenopathy. No colonic wall thickening. Recent imaging of the lumbar spine has identified destructive osseous changes involving S1 and S2 with posterior soft tissue. This is best appreciated sagittal imaging on today's exam with destructive changes. There is a fracture through the superior endplate of S1 which appears new compared to the recent CT. Fracture through the left sacral ala is also new from the recent CT but was present on the MRI. No additional suspicious or destructive osseous changes confirmed on today's exam. IMPRESSION: 1. Redemonstrated destructive osseous changes involving S1 and S2 with some soft tissue extending posteriorly into the spinal canal. New fracture line is evident through the superior aspect of S1 extending to th and there is a redemonstrated left-sided sacral ala fracture. 2. No evidence for any additional confirmed osseous abnormality or destructive change. Marked degenerative changes throughout the thoracic and lumbar spine with heterogeneous osseous appearance. 3. Overall stable CT examination of the chest including postsurgical changes from left-sided lumpectomy with multiple surgical clips including axillary clips. 4. Stable right upper lobe pulmonary nodule. Scattered scarring noted. No additional/enlarging nodules or evidence for any adenopathy. 5. Stable CT examination of the abdomen/pelvis otherwise. Note that the uterus is surgically absent. documented in this encounter H&P Notes Marco Bustillo MD - 12/26/2020 4:32 PM CDTH&P Update ASA Class: ASA-2: Patient with mild systemic disease Airway Assessment Classification: II Exam Resp - CTA CV - RRR no murmur Neuro -A&Ox3 Sedation Plan: Moderate Sedation PART I: COMPLETED BY PHYSICIAN PRIOR TO PROCEDURE H&P Updates and Indication for Care/Procedure: I have examined the patient, reviewed the H&P and no changes to the patient's condition. I have explained the risks, including risk of COVID-19 exposure, benefits, indications, and alternatives for the procedure, answered questions and obtained the appropriate consent to proceed. Code Status discussed with the patient and/or family and they desire code level 1 for procedure. 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 Radiation therapy consultation, hopefully on 12/26/20. UA. Tumor markers. PET scan on discharge. HPI / History / ROS HPI Mrs. Fink is an 80 year-old white female patient who had a routine mammogram on June 04, 2005. This showed a new 1-cm lump at 3 o'clock in the left breast. 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 Estrogen receptor was 4+ positive and progesterone receptor was 4+ positive. A decision was made to do a lumpectomy. This was performed by on 06/24/05.The pathology showed:Breast, left, lumpectomy: - Tumor Type: Infiltrating ductal carcinoma. - Tumor Grade [place]: Moderately differentiated. a. Nuclear Grade: 3, b. Mitotic Grade: 1, c. Tubular Grade: 2. d. Total [place] Score: 6 (of 9). - Tumor Size: 1.8 cm. - In-situ Component: There is adjacent high-grade ductal carcinoma, cribriform, solid, and comedo types, with focal intraductal microcalcifications. - Surgical Margins: the inferior surgical margin is the closest margin; it is less than 0.1 cm from ductal carcinoma in situ and from invasive carcinoma. The remaining margins are greater than 1 cm from tumor. - Microcalcifications: None identified. - Angiolymphatic Invasion: None identified. - Other Findings: There is previous biopsy site adjacent to the tumor. The skin shows no intraepithelial involvement and no dermal angiolymphatic involvement. ER:+ NC:+ HER-2/iggy:Not amplified by FISH (Done at the [facility]). commented on the close margin.Since this is the margin at the pectoralis muscle there is no way to improve the margin. In view of the invasive nature of the cancer,she had a sentinel LN biopsy on 06/30/05.It was benign. She had a seroma that needed to be drained a few times.No other problems. The Pt.wants maximum therapy for her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 HYSTERECTOMY ROBOTIC N/A 10/11/2019 Procedure: DaVinci assisted total laparoscopic hysterectomy;; Surgeon: Lizzy Henderson MD LAP NODE DISSECTION ROBOTIC Bilateral 10/11/2019 Procedure: bilateral pelvic sentinel lymph node excision, cystoscopy;; Surgeon: Lizzy Henderson MD LAP SALPINGOOPHORECTOMY ROBOT Bilateral 10/11/2019 Procedure: bilateral salpingo oophorectomy, extensive lysis of adhesions;; Surgeon: Lizzy Henderson MD OVARIAN CYSTECTOMY UNILAT BILAT 1972 PARTIAL THYROID LOBECTOMY UNILAT WWO ISTHMUSECTOMY 20120108 RADIATION THER TRMT PLAN Left 2005 TOTAL KNEE 11/30/2012 LEFT TOTAL KNEE ARTHROPLASTY ; Surgeon: Benito Restrepo MD TOTAL KNEE Right 2004 UPPER ENDOSCOPY 12/29/2014 Procedure: UPPER ENDOSCOPY;; Surgeon: Omkar Verdin MD YAG LASER LPI YAG OU DR ESPINOZA Family History Problem Relation Age of Onset Heart Attack Father Alcohol Abuse Father Stomach Cancer Mother Cataracts Sister Breast Cancer Sister Breast Cancer Sister 70 Cataracts Sister Lung Cancer Brother Dementia Brother Lung Cancer Half brother Breast Cancer Niece 63 Heart Attack Brother Breast Cancer Niece Breast Cancer Niece Breast Cancer Niece Glaucoma Neg Hx Macular Degeneration Neg Hx Blindness Neg Hx Amblyopia Neg Hx Social History Socioeconomic History Marital status: Spouse name: Not on file Number of children: 3 Years of education: 16 Highest education level: Not on file 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 HENT: Negative. Eyes: Negative. Respiratory: Negative. Cardiovascular: Negative. Gastrointestinal: Positive for constipation. Negative for nausea and vomiting. Endocrine: Negative. Genitourinary: Positive for frequency. Musculoskeletal: Positive for back pain. Skin: Negative. Neurological: Positive for extremity weakness and numbness. Hematological: Negative. Psychiatric/Behavioral: Negative. Physical / Results Current Vital Signs Temp: 98.3 F (36.8 C) BP: 141/61 Weight: 128.9 kg (284 lb 3.2 oz) SpO2: 91 % Resp: 18 Pulse: 70 Current BMI (>50 = increased risk): (!) 45.89 O2 Device: Room Air Pain Ratin Physical Exam Constitutional: General: She is not in acute distress. Appearance: She is obese. She is not ill-appearing, toxic-appearing or diaphoretic. HENT: Head: Normocephalic. Nose: Nose normal. Mouth/Throat: Mouth: Mucous membranes are moist. Pharynx: Oropharynx is clear. No oropharyngeal exudate. Eyes: General: No scleral icterus. Conjunctiva/sclera: Conjunctivae normal. Pupils: Pupils are equal, round, and reactive to light. Neck: Musculoskeletal: Normal range of motion. Cardiovascular: Rate and Rhythm: Normal rate and regular rhythm. Heart sounds: No murmur. Pulmonary: Effort: Pulmonary effort is normal. Breath sounds: Normal breath sounds. Abdominal: General: Abdomen is flat. Bowel sounds are normal. Palpations: Abdomen is soft. Musculoskeletal: Normal range of motion. General: No swelling or tenderness. Right lower leg: No edema. Left lower leg: No edema. Skin: General: Skin is warm and dry. Coloration: Skin is not jaundiced or pale. Neurological: General: No focal deficit present. Mental Status: She is alert and oriented to person, place, and time. Cranial Nerves: No cranial nerve deficit. Motor: Weakness present. Gait: Gait abnormal. Psychiatric: Mood and Affect: Mood normal. Results for TALI FINK ( ) as of 12/25/2020 19:34 Ref. Range 12/25/2020 18:31 WBC Latest Ref Range: 4.0 - 11.0 K/uL 9.4 RBC Latest Ref Range: 3.80 - 5.30 M/uL 3.38 (L) Hemoglobin Latest Ref Range: 11.5 - 15.8 g/dL 12.3 Hematocrit Latest Ref Range: 35.0 - 45.0 % 34.4 (L) MCV Latest Ref Range: 80.0 - 98.0 fL 101.8 (H) MCH Latest Ref Range: 25.5 - 34.0 pg 36.4 (H) MCHC Latest Ref Range: 31.5 - 36.5 g/dL 35.8 RDW-CV Latest Ref Range: 11.5 - 15.5 % 17.5 (H) RDW-SD Latest Ref Range: 35.5 - 50.0 fl 48.7 Platelet Count Latest Ref Range: 140 - 400 K/uL 278 MPV Latest Ref Range: 8.5 - 12.0 fL 10.6 Seg Neut Absolute Latest Ref Range: 1.8 - 8.0 K/uL 8.5 (H) Lymphocytes Absolute Latest Ref Range: 0.8 - 4.1 K/uL 0.7 (L) Monocytes Absolute Latest Ref Range: 0.0 - 1.0 K/uL 0.1 Eosinophils Absolute Latest Ref Range: 0.0 - 0.7 K/uL 0.0 Basophil Absolute Latest Ref Range: 0.0 - 0.2 K/uL 0.0 Immature Granulocyte Absolute Latest Ref Range: 0.00 - 0.06 K/uL 0.05 Neutrophils Percent Latest Units: % 90.3 Neutrophils Abs. (Segs and Bands) Latest Units: /uL 8,500 Lymphocytes Percent Latest Units: % 7.4 Monocytes Percent Latest Units: % 1.3 Immature Granulocyte Percent Latest Units: % 0.5 Eosinophils Percent Latest Units: % 0.3 Basophil Percent Latest Units: % 0.2 Nucleated RBC Latest Units: /100 WBC's 0 Glucose Latest Ref Range: 70 - 100 mg/dL 155 (H) Sodium Latest Ref Range: 135 - 145 meq/L 140 Potassium Latest Ref Range: 3.5 - 5.3 meq/L 4.0 Chloride Latest Ref Range: 99 - 110 meq/L 102 CO2 Latest Ref Range: 20 - 29 meq/L 26 Anion Gap with K Latest Ref Range: 6 - 20 meq/L 16 BUN Latest Ref Range: 6 - 22 mg/dL 19 Creatinine Latest Ref Range: 0.60 - 1.10 mg/dL 0.82 BUN/Creatinine Ratio Latest Ref Range: 10.0 - 25.0 23.2 Calcium Latest Ref Range: 8.5 - 10.5 mg/dL 10.2 Corrected Calcium Latest Ref Range: 8.5 - 10.5 mg/dL 10.4 Magnesium Latest Ref Range: 1.8 - 2.4 mg/dL 1.9 Bilirubin Total Latest Ref Range: 0.2 - 1.2 mg/dL 0.5 Alkaline Phosphatase Latest Ref Range: 30 - 150 U/L 133 ALT - SGPT Latest Ref Range: 0 - 55 U/L 14 AST - SGOT Latest Ref Range: 0 - 35 U/L 21 Protein Total Latest Ref Range: 6.0 - 8.2 g/dL 7.6 Albumin Latest Ref Range: 3.5 - 5.0 g/dL 3.8 Uric Acid Latest Ref Range: 2.5 - 6.2 mg/dL 4.5 eGFR Latest Ref Range: >=60 mL/min/1.73m2 81 eGFR Non- Latest Ref Range: >=60 mL/min/1.73m2 67 EXAM: MRI SPINE LUMBAR WITHOUT CONTRAST INDICATION: ICD-10 M51.26 Lumbar herniated disc ICD-10 M54.16 Pain, radicular, lumbar HERNIATED DISC TECHNIQUE: MRI of the lumbar spine performed without contrast. COMPARISON(S): None Available FINDINGS: Numbering assumes 5 lumbar type vertebral bodies. Conus terminates at a normal level. No evidence ofarachnoiditis or abnormal cord signal. There is an aggressive lesion seen involving the S1 and S2 segments with a ventral epidural soft tissue component contributing to severe right subarticular recess stenosis and spinal canal stenosis at this level. There is likely a superimposed nondisplaced right sacral alar fracture. Moderate foraminal narrowing on the right and left at L5-S1. Neural foramen are otherwise patent. No canal stenosis atthe remaining levels. IMPRESSION: Aggressive appearing lesion involving the S1 and S2 segments with ventral epidural soft tissue component causing severe canal and right subarticular recess stenosis. Differential includes metastatic disease and primary neoplasm such as sarcoma. Hematology oncology consultation recommended. Superimposed nondisplaced right sacral alar fracture. 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 She does have a lytic mass involving the upper sacrum. This undoubtedly is causing the pain that she is nowexperiencing. She has had a biopsy of this site and the results are pending at the time of dictation. We did discuss a palliative course of radiotherapy to this site in the sacrum with the goal of pain relief as well as neurological improvement. The process of radiotherapy, goals, risks and side effects were reviewed with her. These include but are not limited to the risk of skin irritation, muscle soreness and nausea. She appears to understand, is willing to proceed. We will schedule her for treatment planning. May hold beginning her radiotherapy until we have a final pathology back. All questions are answered. She wishes to proceed. Thanks for allowing us to see this pleasant lady. Receipt: [id number] Trans ID: [id number] INVESTMENT OFFICER INVESTMENT OFFICER Reason for Consult Lytic mass at S1-2 causing pain HPI / History / ROS HPI ECOG STATUS: 3 DIAGNOSIS: Suspected carcinoma involving the upper sacrum, causing pain and weakness. CHIEF COMPLAINT: Pain in low back. PRESENT HISTORY: This is an 80-year-old female who I have seen in the past for adenocarcinoma of the breast. She was treated with a lumpectomy and postoperative radiotherapy to the left breast in 2004. She did well post treatment. She did present with vaginal bleeding in 08/2019. She had a robotica lly assisted hysterectomy in 10/2019. Tumor was noted to be a Stage IA, and she was offered observation. Postop she again did well; however, about 2 months ago, she began to note some pain in her low back. This initially was intermittent, but then became progressively worse. CT scan and later an MRI scan of the lumbosacral area does show a mass at the S1-S2 vertebral bodies, with compression of the cauda equina. She had a biopsy of this mass on 12/26/2020. Pathology is pending at the time of dictation. At the time of exam today, she continues to complain of some pain in the posterior low pelvis. Thisis better with rest and somewhat worse with sitting up. She does note some mild weakness of both lower extremities. She reports she still has good control of her urine and bowels. She notes no nausea or vomiting. Her weight and appetite have been relatively stable. She notes no new lumps or masses anywhere. She notes no headaches, vision changes, or difficulty swallowing or speaking. She stillcan wiggle her toes on both legs. Receipt: [id number] Trans ID: [id number] INVESTMENT OFFICER INVESTMENT OFFICER History Patient Active Problem List Diagnosis Goiter Obesity Pure hypercholesterolemia Primary localized osteoarthrosis, lower leg Malignant neoplasm of colon (HCC) Malignant neoplasm of skin Fluid overload Malignant neoplasm of female breast (HCC) Controlled type 2 diabetes mellitus without complication (HCC) Chronic kidney disease, stage III (moderate) (HCC) Anatomical narrow angle borderline glaucoma Swelling, mass, or lump in head and neck Gout Hereditary and idiopathic peripheral neuropathy Arthritis of knee S/P total knee arthroplasty Sialadenitis Abnormal CXR Edema leg 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) Lymphedema of lower extremity Seborrheic keratoses Full thickness macular hole Fatigue Osteopenia Posterior vitreous detachment Blepharitis of upper and lower eyelids of both eyes Hyperopia Presbyopia - Both Macrocytosis Pseudophakia Meningioma (HCC) 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 Endometrial hyperplasia Endometrial cancer (HCC) Bone metastasis (HCC) 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) Intractable pain Current Facility-Administered Medications Medication Dose Route Frequency potassium chloride (K-MARIAJOSE) packet 40 mEq 40 mEq Oral 2 times a day with meals polyethylene glycol (MIRALAX) packet 1 packet 1 packet Oral Daily enoxaparin (LOVENOX) subcutaneous injection solution 40 mg 40 mg Subcutaneous Every 24 hours furosemide (LASIX) tablet 80 mg 80 mg Oral Daily metOLazone (ZAROXOLYN) tablet 2.5 mg 2.5 mg Oral 1 time a day Thu magnesium chloride (MAG64) 64 mg enteric coated tablet 64 mg 64 mg Oral Daily acetaminophen (TYLENOL) tablet 1,000 mg 1,000 mg Oral Every 6 hours prn allopurinol (ZYLOPRIM) tablet 300 mg 300 mg Oral daily aspirin enteric coated tablet 81 mg 81 mg Oral at bedtime celecoxib (celeBREX) capsule 200 mg 200 mg Oral 2 times a day ferrous sulfate (65 mg FE per 325 mg tablet) tablet 325 mg 325 mg Oral Every morning nystatin (NILSTAT) cream Apply externally 3 times a day prn polyethyl glycol-propyl glycol (SYSTANE) ophthalmic solution 1 drop 1 drop Both eyes Every 4 hours prn simvastatin (ZOCOR) tablet 40 mg 40 mg Oral at bedtime vitamin D3 (cholecalciferol) tablet 2,000 Units 2,000 Units Oral Every morning acetaminophen (TYLENOL) tablet 650 mg 650 mg Oral Every 4 hours prn senna-docusate sodium (SENOKOT-S;PERICOLACE) tablet 1 tablet 1 tablet Oral 2 times a day prn bisacodyl (DULCOLAX) suppository 10 mg 10 mg Rectal 1 time a day prn ondansetron (ZOFRAN) injection solution 4 mg 4 mg IV Every 4 hours prn prochlorperazine (COMPAZINE) 10 mg/2 mL injection solution 5 mg 5 mg IV Every 6 hours prn sodium chloride 0.9% flush (adult) 10 mL 10 mL IV 2 times a day and prn HYDROmorphone (DILAUDID) injection solution (conc: 0.5 mg/0.5mL) 0.5 mg 0.5 mg IV Every 1 hour prn HYDROmorphone (DILAUDID) injection solution (conc: 1 mg/mL) 1 mg 1 mg IV Every 1 hour prn traZODone (DESYREL) tablet 50 mg 50 mg Oral Bedtime prn multivitamin therapeutic with minerals (THERA-M) tablet 1 tablet 1 tablet Oral Daily dextrose 50% IV solution 50 mL 25 g IV PRN per parameter glucagon for injection 1 mg vial 1 mg 1 mg Intramuscular PRN per parameter dextrose chewable tablet 16 g 4 tablet Oral PRN per parameter Or carbohydrate 15 g 15 g Oral PRN per parameter insulin aspart (NovoLOG) SQ correction scale (Adult) 2-8 Units Subcutaneous 3 times a day fentaNYL patch: VERIFY THAT PATCH IS IN PLACE 1 patch 1 patch Transdermal 2 times a day fentaNYL patch (DURAGESIC) 12 mcg/hr 12 mcg Transdermal Every 72 hours Allergies Allergen Reactions Keflex [Cephalexin] Hives (High) and Rash Tylox [Oxycodone-Acetaminophen] Wheezing/Bronchospasm (High) Past Medical History: Diagnosis Date Arthralgia Breast cancer (HCC) Cataract Colon cancer (HCC) Diabetes mellitus (HCC) Fluid overload Goiter Gout Hypercholesterolemia Hypopotassemia Kidney disease CKD stage III Lymphedema Malaise and fatigue Meningioma (HCC) 08/03/2017 Obesity Osteoarthrosis Osteoporosis Peripheral neuropathy Vitreous degeneration Past Surgical History: Procedure Laterality Date BREAST LUMPECTOMY Left 2004 malignant BX EXC LYMPH NODE(S) SUPERL 20120108 CATARACT EXTRACTION Left 05/14/2017 Dr Jefferson, left eye CATARACT EXTRACTION Right 06/03/2017 Dr Jefferson, right eye CHEMOTHERAPY UNSPECIFIED Left 2005 CHOLECYSTECTOMY 1992 COLECTOMY PARTIAL WANASTOMOSIS 1992 COLONOSCOPY 12/29/2014 Procedure: COLONOSCOPY;; Surgeon: Omkar Verdin MD COLONOSCOPY 06/06/2015 Procedure: COLONOSCOPY;; Surgeon: Omkar Verdin MD COLONOSCOPY N/A 07/08/2018 Procedure: COLONOSCOPY;; Surgeon: Obi Santizo MD COLONOSCPY FLEXIBLE PROXIMAL TO SPLENIC FLEXURE DX WWO SPECIMENS COLO 20120108 CORE NEEDLE BIOPSY Left 2004 malignant EXC BENIGN SKN LESN WMARG NO SKIN TAG SCLP NCK HND FT GEN LESLEE 0.5CM < [id number] LAP HYSTERECTOMY ROBOTIC N/A 10/11/2019 Procedure: DaVinci assisted total laparoscopic hysterectomy;; Surgeon: Lizzy Henderson MD LAP NODE DISSECTION ROBOTIC Bilateral 10/11/2019 Procedure: bilateral pelvic sentinel lymph node excision, cystoscopy;; Surgeon: Lizzy Henderson MD LAP SALPINGOOPHORECTOMY ROBOT Bilateral 10/11/2019 Procedure: bilateral salpingo oophorectomy, extensive lysis of adhesions;; Surgeon: Lizzy Henderson MD OVARIAN CYSTECTOMY UNILAT BILAT 1972 PARTIAL THYROID LOBECTOMY UNILAT WWO ISTHMUSECTOMY 20120108 RADIATION THER TRMT PLAN Left 2006 TOTAL KNEE 11/30/2012 LEFT TOTAL KNEE ARTHROPLASTY ; Surgeon: Benito Restrepo MD TOTAL KNEE Right 2005 UPPER ENDOSCOPY 12/29/2014 Procedure: UPPER ENDOSCOPY;; Surgeon: Omkar Verdin MD YAG LASER LPI YAG OU DR ESPINOZA Family History Problem Relation Age of Onset Heart Attack Father Alcohol Abuse Father Stomach Cancer Mother Cataracts Sister Breast Cancer Sister Breast Cancer Sister 70 Cataracts Sister Lung Cancer Brother Dementia Brother Lung Cancer Half brother Breast Cancer Niece 63 Heart Attack Brother Breast Cancer Niece Breast Cancer Niece Breast Cancer Niece Glaucoma Neg Hx Macular Degeneration Neg Hx Blindness Neg Hx Amblyopia Neg Hx Social History Socioeconomic History Marital status: Spouse name: Not on file Number of children: 3 Years of education: 16 Highest education level: Not on file Occupational 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 Negative for appetite change and unexpected weight change. Eyes: Negative for visual disturbance. Respiratory: Negative for cough and shortness of breath. Cardiovascular: Positive for leg swelling. Gastrointestinal: Negative for abdominal pain, blood in stool, constipation and rectal pain. Genitourinary: Negative for difficulty urinating. Musculoskeletal: Positive for back pain. Skin: Negative. Neurological: Positive for weakness (BLE). Negative for numbness and headaches. Physical / Results Current Vital Signs Temp: 97.7 F (36.5 C) BP: 122/53 Weight: 123.5 kg (272 lb 4.8 oz) SpO2: 93 % Resp: 18 Pulse: 80 Current BMI (>50 = increased risk): (!) 45.89 O2 Device: Room Air O2 Flow Rate (L/min): 2 l/min Pain Ratin Physical Exam Constitutional: General: She is not in acute distress. Appearance: She is obese. She is not ill-appearing. HENT: Head: Normocephalic. Eyes: Extraocular Movements: Extraocular movements intact. Pupils: Pupils are equal, round, and reactive to light. Abdominal: Palpations: Abdomen is soft. Tenderness: There is no abdominal tenderness. Musculoskeletal: Right ankle: She exhibits swelling (3+). Left ankle: She exhibits swelling (3+). Lymphadenopathy: Upper Body: Right upper body: No supraclavicular adenopathy. Left upper body: No supraclavicular adenopathy. Neurological: Mental Status: She is alert and oriented to person, place, and time. Sensory: Sensation is intact. Comments: Can wiggle toes both feet. Can raise legs bilaterally off bed. Psychiatric: Mood and Affect: Mood normal. Behavior: Behavior normal. Behavior is cooperative. documented in this encounter Miscellaneous Notes Clinical Team - Vale Peguero RN - 01/08/2021 11:45 AM CDTPatient discharging to swing bed today. Dr. Miranda notified regarding needing interagency discharge orders, and discharge meds needing update. Per Dr. Miranda, okay to remove duplicate lovenox, IVdilaudid-as pt has not been requiring in the last couple of days. novolog insulin scale added. He will place interagency orders. ccupational Therapy - Flower Mercado OTR/Joellen - 01/08/2021 9:28 AM CDTAttempted to see pt for OT however she was busy with another discipline. Nursing reports pt has radiation at 10:20 AM and then plan is to dc to swingbed today. OT will continue to follow acutely if ptremains hospitalized. EBRTO Rubin OTR/L Pager [phone] ase Mgmt - Loki Doresy LSW - 01/08/2021 9:23 AM CDTCASE MANAGEMENT / SOCIAL SERVICE FINAL TRANSITION PLAN TRANSITION DATE: 01/08/21 TRANSITION TIME: 1330 INTENDED PAYER SOURCE FOR AGENCY: Medicare TRANSITION DESTINATION: Swing Bed - [facility] [address] DOES ACCEPTING FACILITY REQUIRE COVID TESTING BEFORE DISCHARGE: Needs one negative test within 24-48 hours TRANSITION TRANSPORTATION: Family Car TRANSPORTATION PAYMENT: Not applicable TRANSITION CHOICES OFFERED: Assisted Facility Swing Bed Transitional Care DOES THE PATIENT HAVE A PRIMARY CARE PHYSICIAN? Yes Lg Duenas MD PATIENT / SUBSTITUTE DECISION MAKER GOAL UPON TRANSITION: First Choice: Swing Bed RESOURCE(S) PROVIDED: Discharge Planning DOES PATIENT HAVE CLOTHING TO WEAR AT DISCHARGE? Yes ANTICIPATED MODE OF TRANSPORT TO AND FROM FOLLOW UP APPOINTMENTS: Family Car VERIFIED CORRECT PHARMACY IS ENTERED FOR DISCHARGE: No METHOD OF PRESCRIBING MEDICATIONS: Reconcile medications as Patient Transfer ("65 button") TRANSITION ROUNDING COMPLETED WITH THE FOLLOWING: Patient / family Boat Deckhand Attending MD Bedside segmental paver installer RN COMMENTS / PATIENT AND FAMILY RESPONSE TO PLAN: CM met with patient at bedside. Patient informed of discharge updates. Patient's family will providetransportation upon discharge. Family and patient plan to leave for swing bed at 1330. [facility] ([facility]: [phone]). Isela informed of discharge updates. Patient will need interagency orders and reconcile medications. Patient had no questions or concerns regarding discharge planning. There were no further case management needs on this date. SPECIAL TRANSITION DAY INSTRUCTIONS TO NURSE / MD: [facility] [id number]: [phone] Fx: [phone] CURRENT READMISSION RISK SCORE / HANDOFF: Predictive Risk Score Risk of Unplanned Readmission: 22.1 Handoff given: Jackie endocrinologist ([id number]) Oncology [facility] Nursing Staff ([id number]) CASE MANAGEMENT REFERRAL EDUCATION Patient in need of the following services: Transitional Care / Assisted Facility / Swing Bed Discussion of this need and/or printed listing of available agencies has been provided to patient/substitute decision maker. Opportunities have been given for questions to be asked and answered. Patient/Substitute decision maker agency preferences for services (list in order of preference): 1. [facility] Referrals Made: Other: Profiled on [employer] to [place], [place] area Medicare Comparison Information: Medicare guidelines require referring agencies to provide information regarding agency quality ratings. [facility] may assist with questions about facilities but cannot make recommendations. Patients and their families/decision makers are able to compare ratings of facilities at the following website: h ttps://www.medicare.gov/hlihp-ydxa-wumdkherx/kfjy-ljnvgba-pldaftc-[facility] r-providers or you may call 1-800-MEDICARE Acceptance/Placement: [facility] shares necessary clinical information with potential agencies to allow them to screen patients for safe admission to their facilities. This information is shared via secure communication. Acceptance by a post-acute facility is dependent on many factors including space, care needs, staffing, and insurance coverage. Financial disclosure: Verification of ownership of any agency/facility is available in the above Medicare website. [facility] is affiliated with [facility]-owned home care, hospice, andskilled nursing facilities, including agencies with [facility] in the name and [facility]. Additional agencies may not have [facility] in their name. Medicare guidelines require [facility] to provide a written list of options for your desired care. Youwill be provided a copy if desired. A copy of this document will be given to patient/substitute decision maker as confirmation of conversation regarding referrals and placement options. SIGNED: SUSU Coleman Pt Sitter PH. [phone] are Planning - Eli Fernandez RN - 01/07/2021 10:50 PM CDT Problem: ACUTE PAIN Goal: CLIENT SATISFACTION: PAIN MANAGEMENT Description: DEFINITION: Extent of positive perception of nursing care to relieve pain. 1=Not at all satisfied, 2=Somewhat satisfied, 3=Moderately satisfied, 4=Very satisfied, 5=Completely satisfied. Outcome: NOC Rating 3 Flowsheets (Taken 01/07/2021 3141) Plan of care reviewed with: Patient Patient specific goal for the day: Pt will inform nursing if having increase in pain Patient specific goal for the stay: Pain managed with PO medications Achieve goal for stay: By discharge Patient Progress: Pt reports very little pain t/o shift. Reports her pain has decreased substantially. Has PRN medications available, see MAR. Has been ambulating without difficulty. Will continue to monitor. hysical Therapy - Inga Muro, PT - 01/07/2021 4:16 PM CDT Physical Therapy Acute Inpatient Treatment Note ASSESSMENT/RECOMMENDATIONS Patient able to ambulate greater distance today, reporting pain is better controlled this afternoon than previously. She demonstrates mild shortness of breath, min unsteadiness, and decreased endurance. Patient will benefit from low intensity rehab upon discharge. 6-Clicks Basic Mobility Score: 19 Activity Prescription with Nursing: With assist of 1 and 4WW, walk in piedra 3 times per day. At a minimum, up to chair for all meals or 3 times per day. Encourage patient to perform personal cares at sink when able. Encourage walking to bathroom rather than use commode or bedpan. Anticipated D/C Service needs: Low intensity setting SUBJECTIVE Patient reports mild pain in L hip/pelvis, moderate with resisted exercises. Agreeable to PT. OBJECTIVE Bed Mobility: Modified independent with use of bed rail and HOB raised Transfers: Sit to/from stand with CGA and cues for hand positioning Gait: Patient ambulated 200' x 2 with CGA to SBA and 4WW; step-to to step- through pattern, slower pace, mild path deviations. Heavier use of UEs on 4WW with increased distance, and with LE fatigue. Reported mild shortness of breath (SpO2 97%), min L hip discomfort. Therapeutic Exercises: Seated LAQ, ankle DF/PF, hip abd/add (with resistance on R), gluteal sets all x 15 actively; attempted hip flexion karissa with limited range, requiring trunk extension - tolerating3-4 reps each d/t discomfort and weakness Other: Patient returned to supine with HOB partially elevated, call light, phone, and water in reach. Education: POC, progression of mobility, increasing endurance as tolerated Response to Activity: Modified Aubree RPE: 6 Vitals: O2 brst01-61% on RA after activity Interdisciplinary Communication: Spoke with interdisciplinary team members regarding patient plan ofcare. PLAN Continue plan of care. Today's Treatment: Gait Trainin minutes Therapeutic Exercise: 11 minutes Therapeutic Activity: 19 minutes TOTAL TIMED CODES: 30 minutes TREATMENT TOTAL TIME: 30 minutes Inga Muro PT, DPT Pager #: [phone] ase Mgmt - Loki Dorsey, COIN ROLLING MACHINE OPERATOR - 01/07/2021 4:04 PM CDTCASE MANAGEMENT / SOCIAL SERVICE TRANSITION PLAN - PROGRESS NOTE PLAN: Awaiting Medical Doctor Recommendations for Transition Will Continue to Follow for Support and Progression Towards Final Transition Plan BARRIERS TO TRANSITION: Medical barriers: Medical Stability DOES ACCEPTING FACILITY REQUIRE COVID TESTING BEFORE DISCHARGE: Needs one negative test within 24-48 hours COMMENTS / PATIENT AND FAMILY RESPONSE TO PLAN: CM reviewed patient's electronic medical records and received updates from checker loader. CM met with patient at bedside. [facility] and due to no bed availability. [facility] declined patient due to treatment needs. [facility] a bed in a shared room. Patient declined [facility] bed offer. [facility] is considering patient. However, patient would like to be in [place] at this time. [facility] is able to offer patient a bed Thursday, 01/07. Patient accepted bed offer. Patient shared her daughter will provide transportation upon discharge. Patient will need to be to swingbed by 1500; Patient informed. [facility] CM completed [place] [facility] [employer] Screening. The confirmation number is [id number]. CM [place] fax screening [place] [facility]. Patient had no further questions or concerns regarding discharge planning. CM will continue to inform patient with discharge updates. There were no further case management needs on this date. CM will continue to follow. IS PATIENT'S ADMISSION ASSOCIATED WITH TIA, ISCHEMIC, OR HEMORRHAGIC STROKE?: No PATIENT / SUBSTITUTE DECISION MAKER GOAL UPON TRANSITION: First Choice: Swing Bed ANTICIPATED NEEDS UPON TRANSITION: Assisted Facility Swing Bed Transitional Care RESOURCE(S) PROVIDED: Discharge Planning ANTICIPATED MODE OF TRANSPORT UPON TRANSITION: Family Car ANTICIPATED MODE OF TRANSPORT TO AND FROM FOLLOW UP APPOINTMENTS: Family Car Other: Accepting Facility VERIFIED CORRECT PHARMACY IS ENTERED FOR DISCHARGE: No - Pending final destination TRANSITION ROUNDING COMPLETED WITH THE FOLLOWING: Patient / family Boat Deckhand Attending 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 [phone] are Planning - Nataly Muse RN - 01/07/2021 1:49 PM CDT Problem: ACUTE PAIN Goal: CLIENT SATISFACTION: PAIN MANAGEMENT Description: DEFINITION: Extent of positive perception of nursing care to relieve pain. 1=Not at all satisfied, 2=Somewhat satisfied, 3=Moderately satisfied, 4=Very satisfied, 5=Completely satisfied. Outcome: NOC Rating 4 Flowsheets (Taken 01/07/2021 9669) Patient specific goal for the day: Pt will request PRN meds as needed Patient specific goal for the stay: Pain managed with PO medications Patient Progress: Pt reports minimal pain t/o the shift, requests PO dialudid prior to xrt, tolerated well. Ambulating in room with miminal discomfort. Problem: SPIRITUAL DISTRESS Goal: SPIRITUAL HEALTH Description: DEFINITION: Connectedness with self, others, higher power, all life, nature, and the universe that transcends and empowers the self. 1=Severely compromised, 2= Substantially compromised, 3=Moderately compromised, 4=Mildly compromised, 5=Not compromised. Outcome: NOC Rating 4 Problem: RISK FOR FALLS Goal: FALL PREVENTION BEHAVIOR Description: DEFINITION: Personal or family customer care assistant actions to minimize risk factors that might precipitate falls in the personal environment. 1=Never demonstrated, 2=Rarely demonstrated, 3=Sometimes demonstrated, 4=Often demonstrated, 5=Consistently demonstrated. Outcome: NOC Rating 4 Flowsheets (Taken 01/07/2021 4577) Patient specific goal for the day: Pt will call appropriately Patient specific goal for the stay: No falls during the hospital stay Achieve goal for stay: By discharge Patient Progress: Pt uses call light appropriately, does not attempt to get oob without assistance, up with 1 and a walker. Family at bedside. are Planning - Kimberlee Obregon RN - 01/07/2021 6:36 AM CDT Problem: ACUTE PAIN Goal: CLIENT SATISFACTION: PAIN MANAGEMENT Description: DEFINITION: Extent of positive perception of nursing care to relieve pain. 1=Not at all satisfied, 2=Somewhat satisfied, 3=Moderately satisfied, 4=Very satisfied, 5=Completely satisfied. Outcome: NOC Rating 3 Flowsheets (Taken 01/07/2021 0796) Plan of care reviewed with: Patient Patient specific goal for the day: Have tolerable pain levels Patient specific goal for the stay: Pain managed with PO medications Achieve goal for stay: By discharge Patient Progress: Pain rated 0/10 upon reassessment after PRN dilaudid given by previous shift. No complaints of pain overnight, pt slept comfortably. VSS on RA. Will continue to monitor. are Planning - Soha Kim RN - 2021 3:55 PM CDT Problem: ACUTE PAIN Goal: CLIENT SATISFACTION: PAIN MANAGEMENT Description: DEFINITION: Extent of positive perception of nursing care to relieve pain. 1=Not at all satisfied, 2=Somewhat satisfied, 3=Moderately satisfied, 4=Very satisfied, 5=Completely satisfied. Outcome: NOC Rating 4 Flowsheets (Taken 2021 7152) Patient specific goal for the day: Patient will notify nurse if having pain of 5/10 or higher Patient Progress: Patient pain has been well controlled today. Patient has a Fentanyl patch applied to her upper left arm. Patient has PRN pain medications available if needed. Patient will continue arianna monitored. linical Team - Verónica Waterman RN - 2021 5:28 AM CDTPain has been controlled exhibited by pt declining pain meds offered with a pain rating of zero. Patient did request one dose of pain meds prior to ambulating to bathroom. 1 tab dilaudid 2mg given as requested. Fentanyl patch remains in place on left upper arm. Remains alert and oriented x 4, on roomair- saturations 97-98% Able to ambulate with 1 assist and walker and gait belt for short distance to the bathroom. Continent of bowel, external cath changed this am after taking pt to bathroom. Skin in perineum red, cleansed x 3 thru the night. Randi Parra - Verónica Waterman RN - 2021 4:03 AM CDT Problem: ACUTE PAIN Goal: CLIENT SATISFACTION: PAIN MANAGEMENT Description: DEFINITION: Extent of positive perception of nursing care to relieve pain. 1=Not at all satisfied, 2=Somewhat satisfied, 3=Moderately satisfied, 4=Very satisfied, 5=Completely satisfied. Outcome: NOC Rating 3 Flowsheets (Taken 2021 0400) Initial Score: 3 Target Score: 5 Plan of care reviewed with: Patient Patient specific goal for the day: Patient will notify nurse if having pain of 5/10 or higher Patient specific goal for the stay: Patient's pain will be managed with PO medications. Achieve goal for stay: By discharge Patient Progress: Patient reported pain of 5/10 once this shift and was given oral PRN pain medications. Patient reported relief of pain after medications were administered. Patient will continue to bemonitored. Problem: RISK FOR FALLS Goal: FALL PREVENTION BEHAVIOR Description: DEFINITION: Personal or family customer care assistant actions to minimize risk factors that might precipitate falls in the personal environment. 1=Never demonstrated, 2=Rarely demonstrated, 3=Sometimes demonstrated, 4=Often demonstrated, 5=Consistently demonstrated. Outcome: NOC Rating 3 Flowsheets (Taken 2021 0400) Target Score: 5 Plan of care reviewed with: Patient Patient specific goal for the day: Prevent falls Patient specific goal for the stay: No falls during the hospital stay Achieve goal for stay: By discharge Patient Progress: Patient used hher call light appropriately., fall precautions in placed, will monitor. Randi Parra - Soha Kim RN - 01/05/2021 4:46 PM CDT Problem: ACUTE PAIN Goal: CLIENT SATISFACTION: PAIN MANAGEMENT Description: DEFINITION: Extent of positive perception of nursing care to relieve pain. 1=Not at all satisfied, 2=Somewhat satisfied, 3=Moderately satisfied, 4=Very satisfied, 5=Completely satisfied. Outcome: NOC Rating 4 Flowsheets (Taken 01/05/2021 1644) Patient specific goal for the day: Patient will notify nurse if having pain of 5/10 or higher Patient Progress: Patient reported pain of 5/10 once this shift and was given oral PRN pain medications. Patient reported relief of pain after medications were administered. Patient will continue to bemonitored. are Fidel - Celestina Maharaj RN - 01/05/2021 3:42 AM CDT Problem: RISK FOR FALLS Goal: FALL PREVENTION BEHAVIOR Description: DEFINITION: Personal or family customer care assistant actions to minimize risk factors that might precipitate falls in the personal environment. 1=Never demonstrated, 2=Rarely demonstrated, 3=Sometimes demonstrated, 4=Often demonstrated, 5=Consistently demonstrated. Flowsheets (Taken 01/05/2021 2280) Patient specific goal for the day: Prevent falls Patient specific goal for the stay: No falls during the hospital stay Patient Progress: Patient used hher call light appropriately., fall precautions in placed, will monitor. are Planning - Soha Kim RN - 01/04/2021 6:21 PM CDT Problem: ACUTE PAIN Goal: CLIENT SATISFACTION: PAIN MANAGEMENT Description: DEFINITION: Extent of positive perception of nursing care to relieve pain. 1=Not at all satisfied, 2=Somewhat satisfied, 3=Moderately satisfied, 4=Very satisfied, 5=Completely satisfied. Outcome: NOC Rating 4 Flowsheets (Taken 01/04/2021 5493) Patient specific goal for the day: Patient will notify nursing staff of increased pain of 5/10 or greater Patient Progress: Patient's pain has been minimal most of this shift. Patient did have one report ofpain of 7/10 and was given PRN pain medication. Patient reported relief of pain to 2/10 after the medication was given. Remainder of the shift, the patient reported 0/10 pain. ase Ama - Loki Dorsey LSW - 01/04/2021 1:55 PM CDTCASE MANAGEMENT / SOCIAL SERVICE TRANSITION PLAN - PROGRESS NOTE PLAN: Awaiting Medical Doctor Recommendations for Transition Will Continue to Follow for Support and Progression Towards Final Transition Plan BARRIERS TO TRANSITION: Medical barriers: Medical Stability DOES ACCEPTING FACILITY REQUIRE COVID TESTING BEFORE DISCHARGE: Needs one negative test within 24-48 hours COMMENTS / PATIENT AND FAMILY RESPONSE TO PLAN: CM reviewed patient's electronic medical records and received updates from checker loader. CM met with patient at bedside. Patient continues to be profiled through [facility]. Patient was declined by [facility] at [facility] and due to no bed availability. [facility] declined patient due to treatment needs. [facility] patient a bed in a shared room. [facility] declined [facility] offer. [facility] is able to offer patient a bed Thursday or Thursday of next week. Patient will just need to be finished with radiation treatment prior to acceptance. Patient would like to go [facility] upon discharge. Patient had no further questions or concerns regarding discharge planning. CM will continue to inform patient with discharge updates. There were no further case management needs on this date. CM will continue to follow. IS PATIENT'S ADMISSION ASSOCIATED WITH TIA, ISCHEMIC, OR HEMORRHAGIC STROKE?: No PATIENT / SUBSTITUTE DECISION MAKER GOAL UPON TRANSITION: First Choice: Swing Bed ANTICIPATED NEEDS UPON TRANSITION: Assisted Facility Swing Bed Transitional Care RESOURCE(S) PROVIDED: Placement Profile ANTICIPATED MODE OF TRANSPORT UPON TRANSITION: Family Car Other: To be determined ANTICIPATED MODE OF TRANSPORT TO AND FROM FOLLOW UP APPOINTMENTS: Family Car Other: Accepting Facility VERIFIED CORRECT PHARMACY IS ENTERED FOR DISCHARGE: No - Pending final destination TRANSITION ROUNDING COMPLETED WITH THE FOLLOWING: Patient / family 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 [phone] hysical Therapy - Aziza Smith PT - 01/04/2021 1:10 PM CDT PHYSICAL THERAPY Acute Care Treatment Note RECOMMENDATIONS Assessment: Patient made good progress towards goals today, but Patient continues to present with weakness and decreased functional mobility compared to baseline. Patient continues to benefit from acute care PT and will therefere plan to continue 5x/wk. At this time, recommend ongoing PT in skilled setting upon medical stability. Will update as appropriate. 6-Clicks Basic Mobility Score: 18 Daily activity prescription: With assist of 1, walk in room and progressively increase to out in thehall 3 times per day. At a minimum, up to chair for all meals or 3 times per day. Encourage patient to perform personal cares at sink when able. Encourage walking to bathroom rather than use commode or bedpan. Anticipated D/C Service needs: Low intensity setting Anticipated Assistive Device needs: 4-WW SUBJECTIVE Patient agreeable to therapy session. Pain: At rest: Patient reports pain ( 0-10 scale) 02 With activity: Patient reports pain ( 0-10 scale) 5 OBJECTIVE Precautions: WBAT, fall risk, pressure ulcer risk Observation: resting in bed upon arrival of PT. Bed alarm on Gait belt donned for all out of bed activity Functional Mobility: Bed mobility: stand-by assistance Supine to Sit: modified independent with use of bed rail Sit to Supine: minimal assistance to get legs back into bed Sit to/from Stand: minimal assistance/Contact guard assist and up to 4-wheeled walker Stand Pivot: minimal assistance/Contact guard assist with 4-wheeled walker Gait: Ambulated 100 feet x 2 with minimal assistance/Contact guard assist and with use of 4-wheeled walker -- took 1 minute seated rest break between bouts. Gait is slow but steady -- patient reports increase in pain during ambulation. Stair Negotiation: Not tested Therapeutic Exercises: Patient performed 15 reps of bilateral LE exercises: seated marching, resisted hip abduction/adduction, resisted knee flexion/extension, ankle pumps Other: Patient resting in bed at end of session. Bedside table, call light, and phone in reach. Bed alarm on Patient Education: Patient was educated on POC today through explanation and demonstration. They accepted teaching and verbalized understanding and demonstrated understanding. Goals: ongoing PLAN Continue plan of care. Today's Treatment:: Gait Trainin minutes Therapeutic Exercise: 10 minutes Therapeutic Activity: 0 minutes TOTAL TIMED CODES: 25 minutes TREATMENT TOTAL TIME: 25 minutes Aziza Smith PT Alpha pager: [phone] are Planning - Les Turner CHAPLAIN - 01/04/2021 11:34 AM CDTChaplain contacted patient to inquire if they would like to receive communion. Patient stated they would like to receive and gave permission to contact [place]. Patient received communion on 01/04/21. Patient stated they would like to receive each day of this admission. 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 Pt has been ordering, consuming po and tolerating well. Plan to continue to monitor po intake adequacy during admission. If provider feels pt is at increased nutrition risk, please send Inpatient Dietitian consult. Anahi Nguyen RD, LRD Alpha Pager # [phone] Ext # [phone] are Planning - Eli Reza RN - 01/04/2021 1:07 AM CDT Problem: ACUTE PAIN Goal: CLIENT SATISFACTION: PAIN MANAGEMENT Description: DEFINITION: Extent of positive perception of nursing care to relieve pain. 1=Not at all satisfied, 2=Somewhat satisfied, 3=Moderately satisfied, 4=Very satisfied, 5=Completely satisfied. Outcome: NOC Rating 3 Flowsheets (Taken 01/04/2021 0104) Initial Score: 3 Target Score: 5 Plan of care reviewed with: Patient Patient specific goal for the day: Patient will notify nursing staff of increased pain needing intervention. Patient specific goal for the stay: Patient's pain will be managed with PO medications. Patient Progress: Pt is recieved PRN PO dilaudid see MAR Pt c/o pain to L and R LE see pain assessment. Pt states pain is well controled. Pt also was repositioned frequently. ccupational Therapy - Priyanka Carrizales OTR/L - 01/03/2021 4:28 PM CDTAttempted to see Pt x2 this date; however, Pt was busy with another discipline on both attempts. Will follow up tomorrow as able/appropriate per POC. AYDEE Turner Alpha Pager: [phone] are Planning - Karoline Richmond RN - 01/03/2021 4:20 PM CDT Problem: ACUTE PAIN Goal: CLIENT SATISFACTION: PAIN MANAGEMENT Description: DEFINITION: Extent of positive perception of nursing care to relieve pain. 1=Not at all satisfied, 2=Somewhat satisfied, 3=Moderately satisfied, 4=Very satisfied, 5=Completely satisfied. Outcome: NOC Rating 3 Flowsheets (Taken 01/03/2021 1613) Plan of care reviewed with: Patient Patient specific goal for the day: Patient will notify nursing staff of increased pain needing intervention. Patient specific goal for the stay: Patient's pain will be managed with PO medications. Achieve goal for stay: By discharge Patient Progress: Patient rated pain 4-7/10 so far this shift to her left leg. Right away this morning patient recieved prn IV dilaudid 0.5 - (see MAR). Upon reassessment patient stated relief and appeared to be resting in bed comfortably. This afternoon patient rated pain 7/10 and recieved IV dilaudid 1 mg- (see MAR). Upon reassessment patient rated her pain a 3 and stated the pain med helped a lot.Patient up in wheelchair and being pushed in the hallway by family. Will continue to monitor. ase Mgmt - Loki Dorsey LSW - 01/03/2021 3:28 PM CDTCASE MANAGEMENT / SOCIAL SERVICE TRANSITION PLAN - PROGRESS NOTE PLAN: Awaiting Medical Doctor Recommendations for Transition Will Continue to Follow for Support and Progression Towards Final Transition Plan BARRIERS TO TRANSITION: Awaiting Placement: Assisted/Swing Bed/TCU Medical barriers: Medical Stability DOES ACCEPTING FACILITY REQUIRE COVID TESTING BEFORE DISCHARGE: Needs one negative test within 24-48 hours COMMENTS / PATIENT AND FAMILY RESPONSE TO PLAN: CM reviewed patient's electronic medical records and received updates from checker loader. CM met with patient and daughters at bedside. Patient felt comfortable discussing discharge planning with daughterspresent. Patient continues to be profiled through [facility]. Patient was declined by [facility] at [facility] and due to no bed availability. [facility] declined patient due to treatment needs. [facility] offered [facility] a bed in a shared room. [facility] declined [facility] bed offer. [facility] is considering patient at this time. [facility] felt confident theywould be able to offer patient a bed once completed with radiation treatment. Patient would like to go to [facility] upon discharge. Patient had no further questions or concerns regarding discharge planning. CM will continue to inform patient with discharge updates. There were no further case management needs on this date. CM will continue to follow. IS PATIENT'S ADMISSION ASSOCIATED WITH TIA, ISCHEMIC, OR HEMORRHAGIC STROKE?: No PATIENT / SUBSTITUTE DECISION MAKER GOAL UPON TRANSITION: First Choice: Swing Bed ANTICIPATED NEEDS UPON TRANSITION: Assisted Facility Swing Bed Transitional Care RESOURCE(S) PROVIDED: Placement Profile ANTICIPATED MODE OF TRANSPORT UPON TRANSITION: Family Car Other: To be determined ANTICIPATED MODE OF TRANSPORT TO AND FROM FOLLOW UP APPOINTMENTS: Family Car Other: Accepting Facility VERIFIED CORRECT PHARMACY IS ENTERED FOR DISCHARGE: No - Pending final destination TRANSITION ROUNDING COMPLETED WITH THE FOLLOWING: Patient / family 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 [phone] are Planning - Cami Cazares RN - 01/03/2021 1:42 AM CDT Problem: ACUTE PAIN Goal: CLIENT SATISFACTION: PAIN MANAGEMENT Description: DEFINITION: Extent of positive perception of nursing care to relieve pain. 1=Not at all satisfied, 2=Somewhat satisfied, 3=Moderately satisfied, 4=Very satisfied, 5=Completely satisfied. Flowsheets (Taken 01/03/2021 0138) Initial Score: 3 Target Score: 5 Plan of care reviewed with: Patient Patient specific goal for the day: Pt will rate pain a 4/10 or less. Pain will be managed with PRN PO and IV medications. Pt will use call light appropriately to notify nursing staffing of increased pain. Patient specific goal for the stay: Pt's pain will be managed with PO medicaitons. Achieve goal for stay: By discharge Patient Progress: Pt is rating pain 5-7/10. Complaining of bilateral leg pain. PRN medications givenper MAR with relief. Problem: RISK FOR FALLS Goal: FALL PREVENTION BEHAVIOR Description: DEFINITION: Personal or family customer care assistant actions to minimize risk factors that might precipitate falls in the personal environment. 1=Never demonstrated, 2=Rarely demonstrated, 3=Sometimes demonstrated, 4=Often demonstrated, 5=Consistently demonstrated. Flowsheets (Taken 01/03/2021 0138) Initial Score: 4 Target Score: 5 Plan of care reviewed with: Patient Patient specific goal for the day: Pt will remain free from injuries and falls during this shift. Patient specific goal for the stay: Pt will remain free from injuries and falls throughout this hospital stay. Achieve goal for stay: By discharge Patient Progress: Pt remained free from injury and falls during the shift. Pt used call light appropriately to express needs. [place] fall precautions in place. Pt is tolerating Q2H turns. A&Ox4,RA, VSS. are Planning - Eli Fernandez RN - 01/02/2021 6:41 PM CDT Problem: ACUTE PAIN Goal: CLIENT SATISFACTION: PAIN MANAGEMENT Description: DEFINITION: Extent of positive perception of nursing care to relieve pain. 1=Not at all satisfied, 2=Somewhat satisfied, 3=Moderately satisfied, 4=Very satisfied, 5=Completely satisfied. Outcome: NOC Rating 3 Flowsheets (Taken 01/02/2021 1840) Plan of care reviewed with: Patient Patient specific goal for the day: Patient will notify nursing staff of any increased pain Patient specific goal for the stay: Pt will have pain controlled with PO medications Achieve goal for stay: By discharge Patient Progress: Pt continues to have c/o pain. PRN meciations available, see MAR. Will continue to monitor. ase Mgmt - Loki Dorsey LSW - 01/02/2021 4:24 PM CDTCASE MANAGEMENT / SOCIAL SERVICE TRANSITION PLAN - PROGRESS NOTE PLAN: Awaiting Medical Doctor Recommendations for Transition Will Continue to Follow for Support and Progression Towards Final Transition Plan BARRIERS TO TRANSITION: Awaiting Placement: Assisted/Swing Bed/TCU Medical barriers: Medical Stability DOES ACCEPTING FACILITY REQUIRE COVID TESTING BEFORE DISCHARGE: Other: To be determined COMMENTS / PATIENT AND FAMILY RESPONSE TO PLAN: CM reviewed patient's electronic medical records and received updates from checker loader. CM met with patient and daughters at bedside. Patient felt comfortable discussing discharge planning with daughterspresent. Patient [facility] to be [facility] through [facility]. [facility] and due to no bed availability. [facility] declined patient due to treatment needs. [facility] swingbed is considering patient at this time. [facility] offered patient a bed in a shared room. CM did inform patient with updates. Patient shared she needed some time to consider options. Patientis considering swingbed as chemo plan will be on hold for a month. CM will follow up with patient regarding final decision tomorrow. Patient had no further questions or concerns regarding discharge planning. CM will continue to inform patient with discharge updates. There were no further case management needs on this date. CM will continue to follow. IS PATIENT'S ADMISSION ASSOCIATED WITH TIA, ISCHEMIC, OR HEMORRHAGIC STROKE?: No PATIENT / SUBSTITUTE DECISION MAKER GOAL UPON TRANSITION: First Choice: Assisted Facility Swing Bed Transitional Care ANTICIPATED NEEDS UPON TRANSITION: Assisted Facility Swing Bed Transitional Care RESOURCE(S) PROVIDED: Placement Profile ANTICIPATED MODE OF TRANSPORT UPON TRANSITION: Family Car Other: To be determined ANTICIPATED MODE OF TRANSPORT TO AND FROM FOLLOW UP APPOINTMENTS: Family Car Other: Accepting Facility VERIFIED CORRECT PHARMACY IS ENTERED FOR DISCHARGE: No - Pending final destination TRANSITION ROUNDING COMPLETED WITH THE FOLLOWING: Patient / family 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 [phone] ccupational Therapy - Priyanka Carrizales OTR/L - 01/02/2021 3:33 PM CDT Occupational Therapy Acute Care Progress Note Impression/Recommendations Recommending that pt would benefit from a low intensity setting for continued therapy upon medicallystable d/c. Pt requires assist of 1 and to complete ADLs and previously assist of 1 using a 4WW with transfers due to decreased strength/endurance, continued pain, and decreased functional mobility.OOB activity not completed this date due to fatigue following radiation. Pt was agreeable to ADLs and UE ROM in supine. OT will follow acutely to address UE strengthening/coordination, functional mobility/transfers, functional endurance, cognition, AE needs, and to provide education as needed to maximizeindependence and safety with ADL/IADL performance. OT will update recommendations as able/appropriate. Objective Cognition: Pt presents alert/oriented x 4 this date. UE: Challenged patient to complete BUE exercises in all joints of motion while supine in bed to increase strength/endurance required to maximize independence with ADLs/IADLs. Patient demonstrated understanding by completing 15 reps x 1 set in all available planes of motion using a 1# weight. No weightused for LUE shoulder motions due to hx of of injury. Pt denies pain/discomfort with motions. SBA needed to track repetitions and pace self. Oxygen Level: On RA, VSS ADLs: Feeding: Independent with items within reach seated up in bed Dressing: Min A to gabbie/doff gown supine in bed due to IV placement Toileting: Max A to complete kee cares supine in bed following urine incontinence (Pt assisting by rolling R<>L) Transfers: Bed: Min/Mod A x1 to roll R<>L Patient positioned comfortably in bed with call light in reach and bed alarm activated. Education provided on use of call light and need for assist from staff prior to getting up to reduce fall risk/increase safety. Patient verbalized understanding. Pain: 6/10 Location: B LE Education Education/Training provided: Role of OT, plan of care, ADLs, UE ROM Safety, D/C recs Learners: Patient Readiness: Acceptance Method of Training: Verbal education, demonstration Response: Verbalized/demonstrated understanding, will benefit from continued reinfocement Adaptive Equipment Recommendations Adaptive Equipment Recommended: To further assess Plan to obtain adaptive equipment: To further assess. Goals Patient/Family Stated Goal for Session: None stated, agreeable to OT Short Term Goals: Patient will tolerate 15-30 minutes U/E exercise to further increase independence with ADL/IADLs (ongoing) Patient will complete grooming task safely standing at the sink withSBA using adaptive equipment as needed. (ongoing) Patient will complete LB dressing safely withSBAusing adaptive equipment as needed. (ongoing) Patient will complete toileting safely withSBAusing adaptive equipment as needed. Patient will complete functional transfers safely withSBA using adaptive equipment as needed. (ongoing) Patient will further participate with cognitive assessment to increase safety with functional tasks. Patient will have AE in place to increase safety with ADLs by discharge. (ongoing) Patient making progress towards goals. Charges Treatment/Minutes: Today's Evaluation/Treatment Self care/home management: 10 minutes Therapeutic exercise: 15 minutes Total Treatment Time: 25 minutes Treatment Session 12/03 Weekly Assessment/Plan (): Continue OT POC Therapist [facility] Pager Number [phone] Physical Therapy - Aziza Smith, PT - 01/02/2021 1:00 PM CDT PHYSICAL THERAPY Acute Care Treatment Note RECOMMENDATIONS Assessment: Patient is progressing towards goals, but Patient continues to present with weakness anddecreased functional mobility compared to baseline. Patient continues to benefit from acute care PTand will therefere plan to continue 5x/wk. At this time, recommend ongoing PT in skilled setting upon medical stability. Will update as appropriate. 6-Clicks Basic Mobility Score: 16 Daily activity prescription: With assist of 1, walk in room and progressively increase to out in thehall 3 times per day. At a minimum, up to chair for all meals or 3 times per day. Encourage patient to perform personal cares at sink when able. Encourage walking to bathroom rather than use commode or bedpan. Anticipated D/C Service needs: Low intensity setting Anticipated Assistive Device needs: 4-WW SUBJECTIVE Patient agreeable to therapy session. Pain: At rest: Patient reports pain ( 0-10 scale) 3 With activity: Patient reports pain ( 0-10 scale) 8 OBJECTIVE Precautions: WBAT, fall risk, pressure ulcer risk Observation: resting in bed upon arrival of PT. Bed alarm on Gait belt donned for all out of bed activity Functional Mobility: Bed mobility: Contact guard assist Supine to Sit: Contact guard assist -- with use of bed rail Sit to Supine: minimal assistance to get legs back into bed Sit to/from Stand: minimal assistance and up to 4-wheeled walker Stand Pivot: minimal assistance with 4-wheeled walker Gait: Ambulated 30 feet x 2 with minimal assistance and with use of 4-wheeled walker -- took 1 minute seated rest break between bouts. Gait is very slow and labored -- patient reports significant increase in pain during ambulation. Stair Negotiation: Not tested Therapeutic Exercises: Patient performed 15 reps of bilateral LE exercises: seated marching, resisted hip abduction/adduction, resisted knee flexion/extension, ankle pumps Other: Patient had some incontinence of urine on her second walk so assisted patient with getting cleaned up after walking and before getting back to bed. New socks provided. Patient resting in bed at end of session. Bedside table, call light, and phone in reach. Bed alarm on Patient Education: Patient was educated on POC today through explanation and demonstration. They accepted teaching and verbalized understanding and demonstrated understanding. Goals: ongoing PLAN Continue plan of care. Today's Treatment:: Gait Trainin minutes Therapeutic Exercise: 10 minutes Therapeutic Activity: 30 minutes TOTAL TIMED CODES: 40 minutes TREATMENT TOTAL TIME: 40 minutes Aziza Smith PT [facility] pager: [phone] are Planning - Shannan Morelos RN - 01/02/2021 4:12 AM CDT Problem: ACUTE PAIN Goal: CLIENT SATISFACTION: PAIN MANAGEMENT Description: DEFINITION: Extent of positive perception of nursing care to relieve pain. 1=Not at all satisfied, 2=Somewhat satisfied, 3=Moderately satisfied, 4=Very satisfied, 5=Completely satisfied. Outcome: NOC Rating 3 Flowsheets (Taken 01/02/2021 2742) Plan of care reviewed with: Patient Patient specific goal for the day: Patient will notify nursing staff of any increased pain Patient specific goal for the stay: Patient will have pain at a score of 4/10 or less. Achieve goal for stay: By discharge Patient Progress: Patient c/o pain this shift. PRN IV Dilaudid given x2 (See MAR). Will continue tomonitor are Planning - Nikki Covarrubias RN - 01/01/2021 6:10 PM CDT Problem: ACUTE PAIN Goal: CLIENT SATISFACTION: PAIN MANAGEMENT Description: DEFINITION: Extent of positive perception of nursing care to relieve pain. 1=Not at all satisfied, 2=Somewhat satisfied, 3=Moderately satisfied, 4=Very satisfied, 5=Completely satisfied. Outcome: NOC Rating 3 Flowsheets (Taken 01/01/2021 1809) Plan of care reviewed with: Patient Patient specific goal for the day: Patient will notify nursing staff of any increased pain Patient Progress: Patient c/o pain 04/09 this shift. PRN IV Dilaudid given x2 (See MAR). Had first radiation treatment today. Will continue to monitor ase Mgmt - Loki Dorsey LSW - 01/01/2021 3:53 PM CDTCASE MANAGEMENT / SOCIAL SERVICE TRANSITION PLAN - PROGRESS NOTE PLAN: Awaiting Medical Doctor Recommendations for Transition Will Continue to Follow for Support and Progression Towards Final Transition Plan BARRIERS TO TRANSITION: Awaiting Placement: Assisted/Swing Bed/TCU Medical barriers: Medical Stability DOES ACCEPTING FACILITY REQUIRE COVID TESTING BEFORE DISCHARGE: Other: To be determined COMMENTS / PATIENT AND FAMILY RESPONSE TO PLAN: CM reviewed patient's electronic medical records and received updates from checker loader. CM met with patient at bedside. CM and patient discussed discharge planning. Patient continues to be profiled through [facility]. [facility]/ is considering patient at this time. [facility] and due to no bed availability. [facility] declined patient due to treatment needs. [facility] is considering patient pending nurse evaluation. Updated notes sent to profiled SNFs. Patient did share her first pick would be [facility]. CM contacted [facility]isc[facility], via phone (ph: [phone]). There was no response; voicemail left. Awaiting response from further profiled SNFs. Patient had no further questions or concerns regarding discharge planning. CM will continue to inform patient with discharge updates. There were no further case management needs on this date. CM will continue to follow. IS PATIENT'S ADMISSION ASSOCIATED WITH TIA, ISCHEMIC, OR HEMORRHAGIC STROKE?: No PATIENT / SUBSTITUTE DECISION MAKER GOAL UPON TRANSITION: First Choice: Assisted Facility Transitional Care ANTICIPATED NEEDS UPON TRANSITION: Assisted Facility Transitional Care RESOURCE(S) PROVIDED: Placement Profile ANTICIPATED MODE OF TRANSPORT UPON TRANSITION: Family Car Other: To be determined ANTICIPATED MODE OF TRANSPORT TO AND FROM FOLLOW UP APPOINTMENTS: Family Car Other: Accepting Facility VERIFIED CORRECT PHARMACY IS ENTERED FOR DISCHARGE: No - Pending final destination TRANSITION ROUNDING COMPLETED WITH THE FOLLOWING: Patient / family 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 [phone] ccupational Therapy - Priyanka Carrizales OTR/Joellen - 01/01/2021 3:39 PM CDT Occupational Therapy Acute Care Progress Note Impression/Recommendations Recommending that pt would benefit from a low intensity setting for continued therapy upon medicallystable d/c. Pt requires assist of 1 and to complete ADLs/ transfers with FWW due to decreased strength/endurance, continued pain, and decreased functional mobility.OT will follow acutely to address UE strengthening/coordination, functional mobility/transfers, functional endurance, cognition, AE needs, and to provide education as needed to maximize independence and safety with ADL/IADL performance. OT will update recommendations as able/appropriate. Objective Cognition: Pt presents alert/oriented x 4 this date. Oxygen Level: On RA, VSS ADLs: Feeding: Independent with items within reach Grooming: SBA/Set-up to wash face/hands and comb hair seated at sink on 4WW Dressing: Total A to gabbie/doff socks supine in bed, Min A to doff robe seated EOB Toileting: Max A to complete kee cares supine in bed (Pt assisting by rolling R<>L) Transfers: Bed: Min A supine<>sit, Min A sit<>stand with 4WW 4WW: Min A sit<>stand from 4WW seat with brakes locked and use of sink Ambulated bed<>sink with CGA/Min A x1 and 4WW. Gait belt and gripper socks donned in patient'sroom to increase patient safety and decrease fall risk. Patient positioned comfortably in bed with call light in reach and bed alarm activated. Education provided on use of call light and need for assist from staff prior to getting up to reduce fall risk/increase safety. Patient verbalized understanding. Pain: 6/10 Location: B LE Education Education/Training provided: Role of OT, plan of care, ADLs, Transfers, Safety, D/C recs Learners: Patient Readiness: Acceptance Method of Training: Verbal education, demonstration Response: Verbalized/demonstrated understanding, will benefit from continued reinfocement Adaptive Equipment Recommendations Adaptive Equipment Recommended: To further assess Plan to obtain adaptive equipment: To further assess. Goals Patient/Family Stated Goal for Session: None stated, agreeable to OT Short Term Goals: Patient will tolerate 15-30 minutes U/E exercise to further increase independence with ADL/IADLs (ongoing) Patient will complete grooming task safely standing at the sink withSBA using adaptive equipment as needed. (ongoing) Patient will complete LB dressing safely withSBAusing adaptive equipment as needed. (ongoing) Patient will complete toileting safely withSBAusing adaptive equipment as needed. Patient will complete functional transfers safely withSBA using adaptive equipment as needed. (ongoing) Patient will further participate with cognitive assessment to increase safety with functional tasks. Patient will have AE in place to increase safety with ADLs by discharge. (ongoing) Patient making progress towards goals. 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 Nutrition screening revealed no difficulty eating or significant unintentional weight loss prior to admission. Past medical history noted and is not currently placing pt atincreased nutrition risk. Height: 167.6 cm (5' 6") Weight: 123.6 kg (272 lb 7.8 oz) BMI: Body mass index is 43.98 kg/m. Nutrition (From admission, onward) Start Ordered 12/26/20 1725 Diet per attending physician ONCE 12/26/20 1720 12/26/20 1720 Diet - Diabetic Now Question: Modified Diets Answer: Diabetic 12/26/20 1719 Plan to monitor po intake adequacy during admission. If provider feels pt has nutritional concerns,please send Inpatient Dietitian consult with indication for referral. Anahi Nguyen RD, LRD [facility] Pager # [phone] Ext # [phone] are Planning - Benito Saavedra RN - 01/01/2021 4:48 AM CDTPatient comfortable this shift. Megace started. Patient did not request any pain medication this shift. Will continue with plan of care. Problem: ACUTE PAIN Goal: CLIENT SATISFACTION: PAIN MANAGEMENT Description: DEFINITION: Extent of positive perception of nursing care to relieve pain. 1=Not at all satisfied, 2=Somewhat satisfied, 3=Moderately satisfied, 4=Very satisfied, 5=Completely satisfied. Flowsheets (Taken 01/01/2021 9964) Target Score: 5 Plan of care reviewed with: Patient Patient specific goal for the day: Patient will notify nursing staff of any increased pain Patient specific goal for the stay: Patient will have pain at a score of 4/10 or less. Achieve goal for stay: By discharge Patient Progress: No PRN medication needed. are Fidel - Nikki Covarrubias RN - 12/31/2020 6:18 PM CDT Problem: ACUTE PAIN Goal: CLIENT SATISFACTION: PAIN MANAGEMENT Description: DEFINITION: Extent of positive perception of nursing care to relieve pain. 1=Not at all satisfied, 2=Somewhat satisfied, 3=Moderately satisfied, 4=Very satisfied, 5=Completely satisfied. Outcome: NOC Rating 3 Flowsheets (Taken 12/31/20201816) Plan of care reviewed with: Patient Patient specific goal for the day: Patient will notify nursing staff of any increased pain Patient Progress: Patient c/o pain this shift, PRN IV Dilaudid given x2(See MAR). Patient states relief on reassessment. Will continue to monitor ase Mgmt - Willian, TRACY Manjarrez - 12/31/2020 5:00 PM CDTCASE MANAGEMENT / SOCIAL SERVICE TRANSITION PLAN - PROGRESS NOTE PLAN: Awaiting Medical Doctor Recommendations for Transition Will Continue to Follow for Support and Progression Towards Final Transition Plan BARRIERS TO TRANSITION: Awaiting Placement: Assisted/Swing Bed/TCU Medical barriers: Medical Stability DOES ACCEPTING FACILITY REQUIRE COVID TESTING BEFORE DISCHARGE: Other: To be determined COMMENTS / PATIENT AND FAMILY RESPONSE TO PLAN: CM reviewed patient's electronic medical records and received updates from checker loader. Patient continues to be profiled through [facility]. Patient is profiled to [facility], along with area. Patient prefers area as closer for possible treatments. Updates notes sent to profiled SNFs. [facility] and [facility] SNF[facility] are both considering patient at this time. Patient was declined by Janie at [facility] and due to no bed availability. [facility] is considering patient pending nurse evaluation. Awaiting response from further profiled SNFs. Patient had no further questions or concerns regarding discharge planning. CM will continue to inform patient with discharge updates. There were no further case management needs on this date. CM will continue to follow. IS PATIENT'S ADMISSION ASSOCIATED WITH TIA, ISCHEMIC, OR HEMORRHAGIC STROKE?: No PATIENT / SUBSTITUTE DECISION MAKER GOAL UPON TRANSITION: First Choice: Assisted Facility Transitional Care ANTICIPATED NEEDS UPON TRANSITION: Assisted Facility Transitional Care RESOURCE(S) PROVIDED: Placement Profile ANTICIPATED MODE OF TRANSPORT UPON TRANSITION: Family Car Other: To be determined ANTICIPATED MODE OF TRANSPORT TO AND FROM FOLLOW UP APPOINTMENTS: Family Car Other: Accepting Facility VERIFIED CORRECT PHARMACY IS ENTERED FOR DISCHARGE: No - Pending final destination TRANSITION ROUNDING COMPLETED WITH THE FOLLOWING: Patient / family 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 [phone] Occupational Therapy - Priyanka Carrizales, CAILINR/Joellen - 12/31/2020 4:47 PM CDT Occupational Therapy Acute Care Progress Note Impression/Recommendations Recommending that pt would benefit from a low intensity setting for continued therapy upon medicallystable d/c. Pt previously required assist of 1 and to complete ADLs/ transfers with FWW. Pt limitedby pain in B LE and general deconditioning. OOB activity not completed secondary to pain/fatigue. Tolerated BUE AROM in supine. OT will follow acutely to address UE strengthening/coordination, functional mobility/transfers, functional endurance, cognition, AE needs, and to provide education as needed to maximize independence and safety with ADL/IADL performance. OT will update recommendations as able/ appropriate. Objective Cognition: Pt presents alert/oriented x 4 this date. U/E: Challenged patient to complete BUE exercises in all joints of motion while supine in bed to increase strength/endurance required to maximize independence with ADLs/IADLs. Patient demonstrated understanding by completing 15 reps x 1 set in all available planes of motion with a 1# weight. SBA to track repetitions. Pt denies pain with motions. No weight used for L shoulder due to hx of shoulder injury. Oxygen Level: On RA, VSS ADLs/Transfers: Pt declined OOB activity due to fatigue/pain. Patient positioned comfortably in bed with call light in reach and bed alarm activated. Education provided on use of call light and need for assist from staff prior to getting up to reduce fall risk/increase safety. Patient verbalized understanding. Pain: 7/10 Location: B LE Education Education/Training provided: Role of OT, plan of care, UE ROM Learners: Patient Readiness: Acceptance Method of Training: Verbal education, demonstration Response: Verbalized/demonstrated understanding, will benefit from continued reinfocement Adaptive Equipment Recommendations Adaptive Equipment Recommended: To further assess Plan to obtain adaptive equipment: To further assess. Goals Patient/Family Stated Goal for Session: None stated, pt agreeable to session. RN (Benito) ok'd session. Short Term Goals: Patient will tolerate 15-30 minutes U/E exercise to further increase independence with ADL/IADLs (ongoing) Patient will complete grooming task safely standing at the sink withSBA using adaptive equipment as needed. (ongoing) Patient will complete LB dressing safely withSBAusing adaptive equipment as needed. (ongoing) Patient will complete toileting safely withSBAusing adaptive equipment as needed. Patient will complete functional transfers safely withSBA using adaptive equipment as needed. (ongoing) Patient will further participate with cognitive assessment to increase safety with functional tasks. Patient will have AE in place to increase safety with ADLs by discharge. (ongoing) Patient making slow progress towards goals. Charges Treatment/Minutes: Today's Evaluation/Treatment Therapeutic exercise: 11 minutes Total Treatment Time: 11 minutes Treatment Session 10/05 Weekly Assessment/Plan (): Continue OT POC Therapist Alpha Pager Number [phone] Physical Therapy - Aziza Smith PT - 12/31/2020 1:51 PM CDT PHYSICAL THERAPY Acute Care Treatment Note RECOMMENDATIONS Assessment: Patient is progressing towards goals, but Patient continues to present with weakness anddecreased functional mobility compared to baseline. Patient continues to benefit from acute care PTand will therefere plan to continue 5x/wk. At this time, recommend ongoing PT in skilled setting upon medical stability. Will update as appropriate. 6-Clicks Basic Mobility Score: 16 Daily activity prescription: With assist of 1, walk in room and progressively increase to out in thehall 3 times per day. At a minimum, up to chair for all meals or 3 times per day. Encourage patient to perform personal cares at sink when able. Encourage walking to bathroom rather than use commode or bedpan. Anticipated D/C Service needs: Low intensity setting Anticipated Assistive Device needs: 4-WW SUBJECTIVE Patient agreeable to therapy session. Pain: At rest: Patient reports pain ( 0-10 scale) 3 With activity: Patient reports pain ( 0-10 scale) 8 OBJECTIVE Precautions: WBAT, fall risk, pressure ulcer risk Observation: resting in bed upon arrival of PT. Bed alarm on Gait belt donned for all out of bed activity Vitals: 12/31/20 0843 BP: Pulse: Resp: Temp: SpO2: 94% Lab Results Component Value Date HEMOGLOBIN 12.7 12/31/2020 Functional Mobility: Bed mobility: minimal assistance Supine to Sit: minimal assistance to get legs off of bed - patient able to pull self to sitting Sit to Supine: minimal assistance to get legs back into bed Sit to/from Stand: minimal assistance and up to 4-wheeled walker Stand Pivot: minimal assistance with 4-wheeled walker Gait: Ambulated 25 feet x 2 with minimal assistance and with use of 4-wheeled walker -- took 1 minute seated rest break between bouts. Stair Negotiation: Not tested Therapeutic Exercises: B LE AROM's x 15 reps with demo cues. Other: Patient resting in bed at end of session. Bedside table, call light, and phone in reach. Bed alarm on Patient Education: Patient was educated on POC today through explanation and demonstration. They accepted teaching and verbalized understanding and demonstrated understanding. Goals: ongoing PLAN Continue plan of care. Today's Treatment:: Gait Trainin minutes Therapeutic Exercise: 0 minutes Therapeutic Activity: 23 minutes TOTAL TIMED CODES: 23 minutes TREATMENT TOTAL TIME: 23 minutes Aziza Smith PT Alpha pager: [phone] are Planning - Graeme Arora CHAPLAIN - 12/31/2020 10:38 AM CDTThe pt receive [employer] [facility]. linical Team - Otto Mckeon CHAPLAIN - 12/31/2020 10:18 AM CDT Patient was screened by spiritual care services . Patient received communion and anointing from industrial eng the same day. are Planning - Jean Ruffin RN - 12/31/2020 6:12 AM CDT Problem: ACUTE PAIN Goal: CLIENT SATISFACTION: PAIN MANAGEMENT Description: DEFINITION: Extent of positive perception of nursing care to relieve pain. 1=Not at all satisfied, 2=Somewhat satisfied, 3=Moderately satisfied, 4=Very satisfied, 5=Completely satisfied. Outcome: NOC Rating 4 Flowsheets (Taken 12/31/2020 0611) Target Score: 5 Plan of care reviewed with: Patient Patient specific goal for the day: Patient will report increased pain to RN. Patient specific goal for the stay: Patient will have pain at a score of 4/10 or less. Achieve goal for stay: By discharge Patient Progress: Patient reported pain at in the evening, PRN medication given as ordered, see MAR.Patient states she will let RN know of increased pain. are Planning - Naz Lindsay RN - 12/30/2020 7:00 PM CDT Problem: ACUTE PAIN Goal: CLIENT SATISFACTION: PAIN MANAGEMENT Description: DEFINITION: Extent of positive perception of nursing care to relieve pain. 1=Not at all satisfied, 2=Somewhat satisfied, 3=Moderately satisfied, 4=Very satisfied, 5=Completely satisfied. Flowsheets (Taken 12/30/2020 8266) Plan of care reviewed with: Patient Patient specific goal for the day: Patient will report increased pain to RN. Patient specific goal for the stay: Patient will have pain at a score of 4/10 or less. Achieve goal for stay: By discharge Patient Progress: Pt reports pain in R leg 4/10. PRN IV dilaudid given x1 with reported relief (see MAR). Will cont to monitor are Fidel - Priyanka Rahman RN - 12/30/2020 2:59 PM CDT Problem: ACUTE PAIN Goal: CLIENT SATISFACTION: PAIN MANAGEMENT Description: DEFINITION: Extent of positive perception of nursing care to relieve pain. 1=Not at all satisfied, 2=Somewhat satisfied, 3=Moderately satisfied, 4=Very satisfied, 5=Completely satisfied. Flowsheets (Taken 12/30/2020 4241) Plan of care reviewed with: Patient Patient specific goal for the day: Patient will report increased pain to RN. Achieve goal for stay: By discharge Patient Progress: pt at rest denies pain. pt report pain with increased movement or repositioning inbed to leg. prn pain meds given x1 per shift with releif. are Planning - Padma Todd RN - 12/29/2020 5:48 PM CDT Problem: ACUTE PAIN Goal: CLIENT SATISFACTION: PAIN MANAGEMENT Description: DEFINITION: Extent of positive perception of nursing care to relieve pain. 1=Not at all satisfied, 2=Somewhat satisfied, 3=Moderately satisfied, 4=Very satisfied, 5=Completely satisfied. Flowsheets (Taken 12/29/2020 1370) Initial Score: 2 Target Score: 4 Plan of care reviewed with: Patient Patient specific goal for the day: Patient will report increased pain to RN. Patient specific goal for the stay: Patient will have pain at a score of 4/10 or less. Achieve goal for stay: By discharge Patient Progress: Patient rating pain low on the pain scale at this time. Medication given see mar. Pain management is in place and educated to patient nursing will continue to monitor. are Planning - Nataly Muse RN - 12/29/2020 3:30 PM CDT Problem: ACUTE PAIN Goal: CLIENT SATISFACTION: PAIN MANAGEMENT Description: DEFINITION: Extent of positive perception of nursing care to relieve pain. 1=Not at all satisfied, 2=Somewhat satisfied, 3=Moderately satisfied, 4=Very satisfied, 5=Completely satisfied. Flowsheets (Taken 12/29/2020 1751) Plan of care reviewed with: Patient Patient specific goal for the day: Patient will report increased pain to RN. Patient specific goal for the stay: Patient will have pain at a score of 4/10 or less. Patient Progress: Pain well managed this shift. Discussed PRN medication options to keep pain <4/10, IV dilaudid 0.5 mg administered x1 with good relief. Repositioning as needed for comfort. are Planning - Jean Ruffin RN - 12/29/2020 3:40 AM CDT Problem: ACUTE PAIN Goal: CLIENT SATISFACTION: PAIN MANAGEMENT Description: DEFINITION: Extent of positive perception of nursing care to relieve pain. 1=Not at all satisfied, 2=Somewhat satisfied, 3=Moderately satisfied, 4=Very satisfied, 5=Completely satisfied. Outcome: NOC Rating 4 Flowsheets (Taken 12/29/2020 0338) Target Score: 5 Plan of care reviewed with: Patient Patient specific goal for the day: Patient will report increased pain to RN. Patient specific goal for the stay: Patient will have pain at a score of 4/10 or less. Achieve goal for stay: By discharge Patient Progress: Patient c/o increased pain unmanaged by Fentanyl patch. Patient given PRN medications based on pain score (see MAR). Patient states she will let RN know of increased pain. are Planning - Benito Saavedra RN - 12/28/2020 8:24 PM CDTPatient comfortable this shift. Pain medication given before and after therapy session. Excellent urine output with external cath. Will continue with plan of care. Problem: ACUTE PAIN Goal: CLIENT SATISFACTION: PAIN MANAGEMENT Description: DEFINITION: Extent of positive perception of nursing care to relieve pain. 1=Not at all satisfied, 2=Somewhat satisfied, 3=Moderately satisfied, 4=Very satisfied, 5=Completely satisfied. Flowsheets (Taken 12/28/20202022) Target Score: 4 Plan of care reviewed with: Patient Patient specific goal for the day: Patient will report pain needing intervention to nursing staff. Patient specific goal for the stay: Patient will have pain controlled by oral medications. Achieve goal for stay: By discharge Patient Progress: PRN pain med given twice. Occupational Therapy - Priscilla Miles OTR/Joellen - 12/28/2020 2:59 PM CDT Occupational Therapy Acute Care Progress Note Impression/Recommendations Recommending that pt would benefit from a low intensity setting for continued therapy upon medicallystable d/c. Pt presents functioning below reported baseline, requires assist of 1 and to complete ADLs this date. Completes transfers with fww and assist of 1 during prior session. Pt currently limited by pain in B LE and general deconditioning. OT will follow acutely to address UE strengthening/coordination, functional mobility/transfers, functional endurance, cognition, AE needs, and to provide education as needed to maximize independence and safety with ADL/IADL performance. OT will update recommendations as able/appropriate. Objective Cognition: Pt presents alert/oriented x 4 this date U/E: WFL for session activities Oxygen Level: On RA, VSS ADLs: Feeding: Independent with items within reach Grooming: Set-up to wash face and comb hair this date Dressing: Not observed this date Toileting: Not observed this date, has external catheter Transfers: Comments: Pt reports just completed transfer to chair prior to start of session, declines further transfers this date To end session, pt resting comfortably in bedside chair with call light, phone, and tray table within reach lucas alarm activated. Pt educated to use call light to notify nurse of need for assistance or request of OOB activity, pt verbalized understanding. Pain: 12/08 Location: [facility] Education Education/Training provided: Role of OT, plan of care, ADLs Learners: Patient Readiness: Acceptance Method of Training: Verbal education, demonstration Response: Verbalized/demonstrated understanding, will benefit from continued reinfocement Adaptive Equipment Recommendations Adaptive Equipment Recommended: To further assess Plan to obtain adaptive equipment: To further assess. Goals Patient/Family Stated Goal for Session: None stated, pt agreeable to session. RN (Benito) ok'd session. Short Term Goals: Patient will tolerate 15-30 minutes U/E exercise to further increase independence with ADL/IADLs Patient will complete grooming task safely standing at the sink withSBA using adaptive equipment as needed. (ongoing) Patient will complete LB dressing safely withSBAusing adaptive equipment as needed. (ongoing) Patient will complete toileting safely withSBAusing adaptive equipment as needed. Patient will complete functional transfers safely withSBA using adaptive equipment as needed. (ongoing) Patient will further participate with cognitive assessment to increase safety with functional tasks. Patient will have AE in place to increase safety with ADLs by discharge. (ongoing) Patient making slow progress towards goals. Charges Treatment/Minutes: Today's Evaluation/Treatment Self care/home management: 13 minutes Total Treatment Time: 13 minutes Treatment Session 09/04 Weekly Assessment/Plan (): Continue OT POC Therapist Alpha Pager Number [phone] Physical Therapy - Angus Alberto, PT - 12/28/2020 2:54 PM CDT Physical Therapy Acute Inpatient Treatment Note ASSESSMENT/RECOMMENDATIONS Patient presents with decreased strength and functional mobility compared to baseline. Currently thepatient requires minimal assistance for transfers and ambulation with use of 4 wheeled walker (At Baseline - patient is independent with mobility with a 4-wheeled walker and lives with her in an assisted living facility). Patient will benefit from continued PT during his/her hospital stay. Plan to see patient 5x/wk. Based on current function, anticipate patient will need ongoing PT in a skilled setting upon medical stability. Will update as appropriate. 6-Clicks Basic Mobility Score: 16 Activity Prescription with Nursing: With assist of one, walk in room and progressively increase to out in the [place] 3 times per day. At a minimum, up to chair for all meals or 3 times per day. Encourage patient to perform personal cares at sink when able. Encourage walking to bathroom rather than use commode or bedpan. Anticipated D/C Service needs: Low intensity setting SUBJECTIVE 8-9/10 pain in her low back with ambulation. OBJECTIVE Bed Mobility: Supine to sit with minimal assistance of one Transfers: Sit to/from stand with minimal assistance of one in B4WW Gait: Patient ambulated 12 feet with B4WW and minimal assistance of one. Therapeutic Exercises: B LE AROM's x 15 reps with demo cues. Other: Patient seated in the chair after PT session with LE's elevated, call button in reach and tray table in front of patient. Education: PT provided demonstration, verbal and tactile cues with LE ROM/ strengthening exercises,bed mobility, transfers and ambulation with B4WW. Patient demonstrated understanding of the education provided during participation with activities this visit. Interdisciplinary Communication: Spoke with interdisciplinary team members regarding patient plan ofcare. PLAN Continue plan of care. Today's Treatment: Gait Trainin minutes Therapeutic Exercise: 12 minutes Therapeutic Activity: 13 minutes TOTAL TIMED CODES: 25 minutes TREATMENT TOTAL TIME: 25 minutes Angus Alberto PT Alpha Pager [phone] ase Mgmt - Loki Dorsey LSW - 12/28/2020 1:51 PM CDTCASE MANAGEMENT / SOCIAL SERVICE TRANSITION PLAN - PROGRESS NOTE PLAN: Awaiting Medical Doctor Recommendations for Transition Will Continue to Follow for Support and Progression Towards Final Transition Plan BARRIERS TO TRANSITION: Awaiting Placement: Assisted/Swing Bed/TCU Medical barriers: Medical Stability DOES ACCEPTING FACILITY REQUIRE COVID TESTING BEFORE DISCHARGE: Other: To be determined COMMENTS / PATIENT AND FAMILY RESPONSE TO PLAN: CM reviewed patient's electronic medical records and received updates from checker loader. CM met with patient and family member at bedside. Patient felt comfortable discussing discharge planning with family member present. CM and patient discussed discharge planning. Patient continues to be profiled through [employer]. [facility] and [facility] SNF[facility] are both considering patient at this time. Patient shared that she would like to be closer to the area for treatment purposes. CM profiled patient to area SNFs per request. Patient was declined by Jan[facility] at [facility] due to no bed availability. [facility] is considering patient pending nurse evaluation. Patient had no further questions or concerns regarding discharge planning. CM will continue to inform patient with discharge updates. There were no further case management needs on this date. CM will continue to follow. IS PATIENT'S ADMISSION ASSOCIATED WITH TIA, ISCHEMIC, OR HEMORRHAGIC STROKE?: No PATIENT / SUBSTITUTE DECISION MAKER GOAL UPON TRANSITION: First Choice: Assisted Facility Transitional Care ANTICIPATED NEEDS UPON TRANSITION: Assisted Facility Transitional Care RESOURCE(S) PROVIDED: Placement Profile ANTICIPATED MODE OF TRANSPORT UPON TRANSITION: Family Car Other: To be determined ANTICIPATED MODE OF TRANSPORT TO AND FROM FOLLOW UP APPOINTMENTS: Family Car Other: Accepting Facility VERIFIED CORRECT PHARMACY IS ENTERED FOR DISCHARGE: No - Pending final destination TRANSITION ROUNDING COMPLETED WITH THE FOLLOWING: Patient / family 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 [phone] are Planning - Nidhi Higgins RN - 12/28/2020 3:07 AM CDT Problem: ACUTE PAIN Goal: CLIENT SATISFACTION: PAIN MANAGEMENT Description: DEFINITION: Extent of positive perception of nursing care to relieve pain. 1=Not at all satisfied, 2=Somewhat satisfied, 3=Moderately satisfied, 4=Very satisfied, 5=Completely satisfied. Outcome: NOC Rating 2 Flowsheets (Taken 12/28/2020 0305) Patient specific goal for the day: Patient will report pain needing intervention to nursing staff. Patient Progress: Patient reports pain this shift. Mild pain to R leg - given tylenol. Pt rested fora couple hours after administration, but woke up to aching pain in the same spot - IV dilaudid given- see MAR. Pt repositioned as well, appears to be comfortable. ase Ama - Loki Dorsey LSW - 12/27/2020 2:08 PM CDTCASE MANAGEMENT / SOCIAL SERVICE TRANSITION PLAN - PROGRESS NOTE PLAN: Awaiting Medical Doctor Recommendations for Transition Will Continue to Follow for Support and Progression Towards Final Transition Plan BARRIERS TO TRANSITION: Awaiting Placement: Assisted/Swing Bed/TCU Medical barriers: Medical Stability DOES ACCEPTING FACILITY REQUIRE COVID TESTING BEFORE DISCHARGE: Other: To be determined COMMENTS / PATIENT AND FAMILY RESPONSE TO PLAN: CM reviewed patient's electronic medical records and received updates from checker loader. CM met with patient at bedside. CM and patient discussed discharge planning. Patient has been working with PT/OT; recommendations are low intensity setting. Patient agrees she does not feel safe to return home. Patient agreeable with placement. CM profile patient to [facility] SNFs through [facility]. Patient had no further questions or concerns regarding discharge planning. CM provided active listening skills and support. There were no further case management needs on this date. CM will inform patient with discharge updates. CM will continue to follow. IS PATIENT'S ADMISSION ASSOCIATED WITH TIA, ISCHEMIC, OR HEMORRHAGIC STROKE?: No PATIENT / SUBSTITUTE DECISION MAKER GOAL UPON TRANSITION: First Choice: Assisted Facility Transitional Care ANTICIPATED NEEDS UPON TRANSITION: Assisted Facility Transitional Care RESOURCE(S) PROVIDED: Placement Profile ANTICIPATED MODE OF TRANSPORT UPON TRANSITION: Family Car Other: To be determined ANTICIPATED MODE OF TRANSPORT TO AND FROM FOLLOW UP APPOINTMENTS: Family Car Other: Accepting Facility VERIFIED CORRECT PHARMACY IS ENTERED FOR DISCHARGE: No - Pending final destination TRANSITION ROUNDING COMPLETED WITH THE FOLLOWING: Patient / family 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 [phone] are Planning - Irlanda Serra RN - 12/27/2020 1:30 PM CDT Problem: ACUTE PAIN Goal: CLIENT SATISFACTION: PAIN MANAGEMENT Description: DEFINITION: Extent of positive perception of nursing care to relieve pain. 1=Not at all satisfied, 2=Somewhat satisfied, 3=Moderately satisfied, 4=Very satisfied, 5=Completely satisfied. Outcome: NOC Rating 3 Flowsheets (Taken 12/27/2020 0721) Patient specific goal for the day: Patient will report pain needing intervention to nursing staff. Patient specific goal for the stay: Patient will have pain controlled by oral medications. Achieve goal for stay: By discharge Patient Progress: Patient reports pain being 1-2/10 while laying in bed but increased pain with ambulation. Pt recieved 1mg of IV dilaudid prior to PT/OT working with pt and ambulation. Pt reported having much more ability to move without pain due to premedication. Will continue to monitor. hysical Therapy - Aziza Smith, PT - 12/27/2020 1:01 PM CDT PHYSICAL THERAPY ACUTE CARE INITIAL EVALUATION RECOMMENDATIONS Assessment: Patient presents with decreased strength and functional mobility compared to baseline. Currently requires minimal assistance/Contact guard assist for transfers and ambulation with use of Front-wheeled walker (At Baseline - patient is independent with mobility with use of 4-wheeled walkerand lives with her in an assisted living facility). Patient will benefit from continued PT during his/her hospital stay. Plan to see patient 5x/wk. Based on current function, anticipate patient will need ongoing PT in a skilled setting upon medical stability. Will update as appropriate. 6-Clicks Basic Mobility Score: 16 Daily activity prescription: With assist of 1, walk in room and progressively increase to out in thehall 3 times per day. At a minimum, up to chair for all meals or 3 times per day. Encourage patient to perform personal cares at sink when able. Encourage walking to bathroom rather than use commode or bedpan. Anticipated D/C Service needs: Low intensity setting Anticipated Assistive Device needs: FWW and 4-WW Diagnosis: No diagnosis found. Prescription: Eval and Treat Admit Date: 12/25/2020 Pertinent Medical / Surgical History: Patient has a past medical history of Arthralgia, Breast cancer (HCC), Cataract, Colon cancer (HCC), Diabetes mellitus (HCC), Fluid overload, Goiter, Gout, Hypercholesterolemia, Hypopotassemia, Kidneydisease, Lymphedema, Malaise and fatigue, Meningioma (HCC) (08/03/2017), Obesity, Osteoarthrosis, Oste oporosis, Peripheral neuropathy, and Vitreous degeneration. She also has no past medical history of Amblyopia, Asthma, Diabetic retinopathy (HCC), Hypertension, Macular degeneration, Retinal detachment, Strabismus, or Uveitis. Patient has a past surgical history that includes colectomy partial wanastomosis; cholecystectomy; ovarian cystectomy unilat bilat (1971); partial thyroid lobectomy unilat wwo isthmusectomy; bx exc lymph node(s) superl; colonoscpy flexible proximal to splenic flexure dx wwo specimens colo; exc benignskn lesn wmarg no skin tag sclp nck hnd ft gen leslee 0.5cm <; total knee (11/30/2012); yag laser (LPIYAG OU ); colonoscopy (12/29/2014); upper endoscopy (12/29/2014); colonoscopy (06/06/2015); core needle biopsy (Left, 2004); cataract extraction (Left, 05/14/2017); cataract extraction (Right, 06/03/2017); c olonoscopy (N/A, 07/08/2018); total knee (Right, 2004); lap hysterectomy robotic (N/A, 10/11/2019); lap salpingoophorectomy robot (Bilateral, 10/11/2019); lap node dissection robotic (Bilateral, 10/11/2019); breast lumpectomy (Left, 2005); radiation ther trmt plan (Left, 2006); and chemotherapy unspecified (Left, 2006). 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 Current Living Situation: Patient Lives: With spouse, in Assisted living -- Patient has been the primary caregiver for her Steps: no steps to enter Occupation: retired Functional Level Prior to Admit: Activity of Daily Living: independent - 1 meal is provided at the AL, cleaning service 1x/wk is provided, laundry service is provided Mobility: Independent, 4-WW History of falls: Yes (December 10) Home O2: No Driving: Yes Mobility Equipment Available: 4-WW Patient's Concerns: None OBJECTIVE Patient seen at bedside. Patient presents with IV Cognition: Alert and orientated x4 Direction Following: intact Pain: At rest: Patient reports pain ( 0-10 scale) 1-2 With activity; Patient reports pain ( 0-10 scale) 8 Posture: WFL Observation: resting in bed upon arrival of PT at bedside. Strength/ROM: Within Functional Limits Except As Indicated Right Left ROM WFL WFL Strength Weakness noted (greater than left) - difficult to move leg in bed needs assistance to get leg off of bed when performing supine to sit Weakness noted, but able to move leg through full motion while in bed UE screen: Refer to Occupational Therapy report for upper extremity range of motion and strength. Sensation: diminished Tone: Normal Coordination: intact Functional Mobility: Bed mobility: Supine to Sit: minimal assistance/Contact guard assist - needed a small amount of assist to move right leg off the edge of bed Sit to Supine: not assessed Transfers: Sit to/from Stand:minimal assistance/Contact guard assist and up to Front- wheeled walker Stand Pivot:contact guard assistance with Front-wheeled walker Balance: Sitting Balance: Static - good Dynamic - good Standing Balance: Static - fair Dynamic - fair Gait: 15 feet, minimal assistance/Contact guard assist using FWW Gait Quality gait slow - increase in pain noted with mobility - patient is used to using a 4-wheeledwalker - brought to room for trial at next session. Stair Negotiation: Not tested Education: Patient was educated on POC today through explanation and demonstration. They accepted teaching and verbalized understanding and demonstrated understanding.. Interdisciplinary Communication: Notified nurse of recommendation . ASSESSMENT SUMMARY/RECOMMENDATIONS Factors affecting function: Physical Impairments: right lower extremity weakness, left lower extremity weakness, sensation/proprioception, pain and fatigue Functional Limitations: bed mobility, transfers, standing balance, gait, functional endurance and at fall risk Goals: Patient/Family Goals: Get stronger, go home Related Clinical Goals: to be achieved by discharge. Bed Mobility: Patient will transfer sit to/from supine with independently. Patient will roll and/or reposition in bed with independently. Transfers: Patient will transfer from sit to stand with independently and equipment as needed to allow for safe household mobility. Ambulation: Patient will be able to ambulate at least 50 feet over even terrain using least restrictive assistive device independently to allow for safe functional mobility in the home. PLAN PT Frequency of therapy recommended: Daily M-F PT Plan of Care: balance training bed mobility training education equipment gait training home exercise instruction postural training therapeutic activity therapeutic exercise transfer training Evaluation, goals, and plan discussed with patient Today's Treatment: Evaluation = completed Gait Training = 0 minutes Therapeutic Exercise = 0 minutes Therapeutic Activity = 15 minutes TOTAL TIME-CODED MINUTES = 15 minutes TOTAL TREATMENT TIME: 35 minutes Treatment provided: Eval and therapeutic activity of transfers and short distance ambulation. Physical Therapist: Aziza Smith PT Alpha Pager: [phone] Occupational Therapy - Priscilla Miles OTR/Joellen - 12/27/2020 11:03 AM CDT Occupational Therapy Acute Care Evaluation Impression/Recommendations Recommending that pt would benefit from a low intensity setting for continued therapy upon medicallystable d/c. Pt presents functioning below reported baseline, requires assist of 1 and fww to complete ADLs/functional transfers this date. Pt currently limited by pain in B LE and general deconditioning. OT will follow acutely to address UE strengthening/coordination, functional mobility/transfers, functional endurance, cognition, AE needs, and to provide education as needed to maximize independence and safety with ADL/IADL performance. OT will update recommendations as able/appropriate. Admitting Diagnosis: Intractable Pain History of Present Illness: Refer to H&P for details Past Medical History: Past Medical History: Diagnosis Date Arthralgia Breast cancer (HCC) Cataract Colon cancer (HCC) Diabetes mellitus (HCC) Fluid overload Goiter Gout Hypercholesterolemia Hypopotassemia Kidney disease CKD stage III Lymphedema Malaise and fatigue Meningioma (HCC) 08/03/2017 Obesity Osteoarthrosis Osteoporosis Peripheral neuropathy Vitreous degeneration Activity Level: Activity as tolerated per MD Precautions: Pu, falls, alarms Infection Control: standard Patient History Social/Home Environment: Patient lives: lives in an assisted living facility, with spouse House: apartment Home Environment: Bed/Bath on main: Yes Bath Setup: Walk-In Shower with curtain Employment: retired Prior Level of Function Independent with: dressing, bathing, medication management, cooking, driving and money management Assistance needed with: cleaning and laundry Comments: Pt reports independence with functional mobility at baseline with 4ww. States receives 1meal per day from [facility] facility and that [facility] provides cleaning and laundry services. Pt reports her is 10 years older than she is, he receives services, and pt assists him as needed. 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 Reports one recent fall on 12/10/20. Adaptive Equipment Available: shower chair, grab bars tub/shower and 4 wheeled walker Present for Eval: Pt, PT Objective Activities of Daily Living: Feeding: To further assess Grooming: Set-up to comb hair from supine position in bed Upper Extremity Dressing: To further assess Lower Extremity Dressing: Total A to don socks this date Bathing: To further assess Toileting: To further assess, has external cath Homemaking: Receives assistance with 1 meal per day and cleaning/laundry at baseline Transfers: Bed: SBA for supine>sit EOB Chair: CGA with fww Toilet: To further assess Tub/Shower: To further assess Comments: Pt ambulates from EOB>approx 10' in room>bedside chair this date, reports high pain levels in B LE with ambulation, no LOB noted however. All out of bed activity completed with gait belt, non-skid footwear, and fww. To end session, pt resting comfortably in bedside chair with call light, phone, and tray table within reach lucas alarm activated. Pt educated to use call light to notify nurse of need for assistance or request of OOB activity, pt verbalized understanding. Pain: Pain at rest: 2/10 Pain during activity: 8/10 Location: B LE Upper Extremity Function: Range of Motion: Right:within functional limits Left: Shoulder flexion to approx 90 degrees otherwise WFL Strength: Right: within functional limits Left: within functional limits Endurance: limited Oxygen Level: On RA, VSS Coordination: intact Sensation: impaired, reports neuropathy mainly in feet but mildly in hands as well Edema: yes, B LE Dominant Hand: left Comments: Strength equal bilaterally Orientation: Cognition: alert Attention: intact Following Directions: intact Safety Awareness: intact Impulsivity: No impulsivity noted this date Comments: Pt presents alert/oriented x 4 this date, pleasant and conversational. Follows both simple and complex instructions well throughout session. Visual/Perception: Glasses: Yes Comments: Reports decreased visual acuity as of recently Education Education/Training provided: Role of OT, plan of care, ADLs, functional transfers, call light education, safety, discharge recommendations Learners: Patient Readiness: Acceptance Method of Training: Verbal education, demonstration Response: Verbalized/demonstrated understanding, will benefit from continued reinforcement Adaptive Equipment Recommendations Adaptive Equipment Recommended: To further assess Plan to obtain adaptive equipment: To further assess. Assessment/Plan Assessment: Patient demonstrates decreased physical conditioning, decreased independence with ADL/IADL tasks and decreased independence with functional mobility Patient showing a decrease in ADL/transfer performance and will benefit from continued OT. Plan: Patient to be seen 3-5 times a week to work toward goals Treatment plan will consist of Thursday thru Thursday sessions Goals Patient/Family Stated Goal for Session: None stated, pt agreeable to session. RN (Irlanda) ok'd session. Short Term Goals: Patient will tolerate 15-30 minutes U/E exercise to further increase independence with ADL/IADLs Patient will complete grooming task safely standing at the sink with SBA using adaptive equipment asneeded. Patient will complete LB dressing safely with SBA using adaptive equipment as needed. Patient will complete toileting safely with SBA using adaptive equipment as needed. Patient will complete functional transfers safely with SBA using adaptive equipment as needed. Patient will further participate with cognitive assessment to increase safety with functional tasks. Patient will have AE in place to increase safety with ADLs by discharge. Treatment Provided Evaluation complete, please see above for additional treatment provided Charges Treatment/Minutes: Today's Evaluation/Treatment Evaluation Total for time-based codes: 0 minutes Total treatment time: 37 minutes Evaluation Complexity PMH/Comorbidities that affect Occupational Performance: See PMH Occupational Profile/Medical and Therapy History: LOW - Brief history relating to presenting problem Patient Assessment: LOW - 1-3 performance deficits relating to physical, cognitive, psychosocial limitations/restrictions Clinical Decision Making: LOW - Low complexity, limited amount of treatment options, no assessment modification, no comorbidities Evaluation Complexity: Low Therapist Alpha Pager Number: [phone] LLETCruba Parra - Nidhi Higgins RN - 12/27/2020 3:21 AM CDT Problem: ACUTE PAIN Goal: CLIENT SATISFACTION: PAIN MANAGEMENT Description: DEFINITION: Extent of positive perception of nursing care to relieve pain. 1=Not at all satisfied, 2=Somewhat satisfied, 3=Moderately satisfied, 4=Very satisfied, 5=Completely satisfied. Outcome: NOC Rating 3 Flowsheets (Taken 12/27/2020 4929) Patient specific goal for the day: Patient will report pain needing intervention to nursing staff Patient Progress: Patient denies pain this shift, states that her pain subsided after IV dilaudid given previously. No tenderness to biopsy site. Will continue to reposition for comfort. are Planning - Dionne Frey RN - 12/26/2020 6:46 PM CDT Problem: ACUTE PAIN Goal: CLIENT SATISFACTION: PAIN MANAGEMENT Description: DEFINITION: Extent of positive perception of nursing care to relieve pain. 1=Not at all satisfied, 2=Somewhat satisfied, 3=Moderately satisfied, 4=Very satisfied, 5=Completely satisfied. Outcome: NOC Rating 3 Flowsheets (Taken 12/26/2020 2680) Plan of care reviewed with: Patient Patient specific goal for the day: Patient will report increased pain to staff Patient specific goal for the stay: Patient will have pain controlled by oral medications Achieve goal for stay: By discharge Patient Progress: Patient reported pain to her R leg, rating it a 6/10. IV dilaudid and po tylenol given during shift (see MAR). Sacral biopsy done today, patient is not reporting any pain at site. will continue to monitor. linical Team - Tamar Monaco RN - 12/26/2020 5:15 PM CDTPatient transferred to inpatient unit for continued care post biopsy in IR. Patient is alert and orie nted x 4. Glasses with patient at bedside. Family at bedside. Bedside report given to, RUTH Truong. Dressing to right buttock is assessed and is clean, dry, and intact. See flow sheets for further details. perative Note - Marco Bustillo MD - 12/26/2020 4:56 PM CDTPost Procedure Note Type of Anesthesia: Local and Moderate Sedation Pre-op Diagnosis: sacral lesion Post-op Diagnosis: Same Procedure: biopsy sacral lesion Procedure Findings: cores and aspirate obtained Physician: Marco Bustillo Judge: N/A EBL: none Specimens: core specimens and aspirate Drains: None Complications: None Sedation: The procedure was performed using moderate conscious sedation. The patient was monitored utilizing continuous pulse oximetry, continuous telemetry/bedside cardiac monitoring and intermittent blood pressure measurements throughout the procedure without notable aberration in vitals. Please seethe patient's procedure log for further information. Physician start time: 1648 Physician stop time: 1655 Physical Therapy - Aziza Smith PT - 12/26/2020 4:05 PM CDTPT consult received. Spoke to nurse who reported that patient was soon to be going to IR - will planto hold until tomorrow. Aziza Smith PT Alpha pager: [phone] ase Mgmt - Loki Dorsey LSW - 12/26/2020 1:45 PM CDTCASE MANAGEMENT / SOCIAL SERVICE TRANSITION PLAN - INITIAL ASSESSMENT TRANSITION PLAN: Awaiting Medical Doctor Recommendations for Transition Will Continue to Follow for Support and Progression Towards Final Transition Plan BARRIERS TO TRANSITION: Medical barriers: Medical Stability COMMENTS / PATIENT AND FAMILY RESPONSE TO PLAN: CM reviewed patient's electronic medical records and received updates from checker loader. CM met with patient and daughters, Teresa, at bedside. CM introduced self and explained case management role to patient and daughters. Patient felt comfortable discussing discharge planning with daughters present. Patient shared that she resides at [facility] with , Viral. Patient uses a cane and 4WW for gait assistance. Patient reports being independent in ADLs and manages own medications. Patient receives a noon meal through [facility]. Patient provides vehicle transportation for self and . CM contacted [facility], Lizeth, regarding discharge planning (ph: [phone]). There wasno response; voicemail left. CM will continue attempt to touch-base. Patient receives HH - PT/OT through [facility]. CM contacted [facility] regarding discharge planning (ph: [phone]). CM faxed patient's H&P, labs, and med list upon request (fx: [phone]). [facility] will need orders upon discharge. Patient and daughters had no questions or concerns regarding discharge planning at this time. There were no further case management needs on this date. CM will continue to follow. ADMISSION DX: sacral lesion; severe back pain PATIENT STATUS: Inpatient RELEASE OF INFORMATION: Yes -- verbal for: Discharge Planning SOURCES OF INFORMATION (See demographics for contact information): Home Health Medical Record Patient Assisted Living Facility CURRENT LIVING SITUATION / LEVEL OF ASSISTANCE: Lives in Facility - Name: [facility] Contact: Lizeth Fax: Pharmacy: [facility] [id number] [place] [address] [address] COMMUNITY SERVICES: Home Health [facility] Fx: [phone] HEALTHCARE DIRECTIVE: Yes-On File and reviewed POWER OF POULTRY KILLER: None FINANCIAL CONCERNS: No Concerns PRIMARY CARE PHYSICIAN: Yes Lg Duenas MD : No IS PATIENT'S ADMISSION ASSOCIATED WITH TIA, ISCHEMIC, OR HEMORRHAGIC STROKE?: No LANGUAGE / COMMUNICATION BARRIERS: No PATIENT / SUBSTITUTE DECISION MAKER GOAL UPON TRANSITION: First Choice: Home Health: Occupational Therapy and Physical Therapy Home: Family/Friend Support ANTICIPATED NEEDS, TRANSITION CHOICES OFFERED: Other: To be determined RESOURCE(S) PROVIDED: nothing needed at this time DOES PATIENT HAVE CLOTHING TO WEAR AT DISCHARGE? Yes ANTICIPATED MODE OF TRANSPORT UPON DISCHARGE: Family Car Other: To be determined VERIFIED CORRECT PHARMACY IS ENTERED FOR DISCHARGE: Yes - Pharmacy: [facility] [id number] [place] [phone] CURRENT READMISSION RISK SCORE Predictive Risk Score Risk of Unplanned Readmission: 12.4 Please refer to readmission risk assessment flowsheet for further details. SIGNED: SUSU Coleman Pt Sitter PH. [phone] are Planning - Graeme Arora CHAPLAIN - 12/26/2020 11:50 AM CDTWhile inquiring as to whether Tali, a 80 year old female, would like to receive communion, Tali began to open up about her medical struggles and to speak about her family. She spoke of her familyand her saida as being sources of strength for her. The assembler engine was not able to be present to Tali for a sufficient amount of time due to his need to complete the time sensitive [employer] list. Tali expressed that she desired a member ofthe spiritual care team follow up with her at a later time. The assembler engine assessed that Tali relied on her saida and family for support. A member of the spiritual care team will attempt to follow up with Tali at a later time. The spiritual care team is available PRN. Please page #[phone] for additional support. ccupational Therapy - Shaylee Fernandez OTR/Joellen - 12/26/2020 10:11 AM CDT OT referral received, chart reviewed and spoke with RN who indicated patient to have CT this morning, so will hold and re-check later in day or 12/27 as able/appropriate Isela Fernandez OTR/L Alpha pager [phone] linical Team - Simon Patrick, STUDENT - 12/26/2020 9:52 AM Shalini Circulation Supervisor Graeme contacted patient to inquire if they would like to receive communion. Patient stated they would like to receive and gave permission for assembler engine to contact [place] office. Patient received spiritual communion on 12/26/2020. Patient stated that [facility] are Planning - Henny Fernando RN - 12/25/2020 10:41 PM CDT Problem: ACUTE PAIN Goal: CLIENT SATISFACTION: PAIN MANAGEMENT Description: DEFINITION: Extent of positive perception of nursing care to relieve pain. 1=Not at all satisfied, 2=Somewhat satisfied, 3=Moderately satisfied, 4=Very satisfied, 5=Completely satisfied. Outcome: NOC Rating 3 Flowsheets (Taken 12/25/2020 9972) Plan of care reviewed with: Patient Patient specific goal for the day: Patient will report increased pain to staff Patient specific goal for the stay: Patient will have pain controlled by oral medications Achieve goal for stay: By discharge are Planning - Dnaae Sebastian RN - 12/25/2020 5:45 PM CDT Problem: ACUTE PAIN Goal: CLIENT SATISFACTION: PAIN MANAGEMENT Description: DEFINITION: Extent of positive perception of nursing care to relieve pain. 1=Not at all satisfied, 2=Somewhat satisfied, 3=Moderately satisfied, 4=Very satisfied, 5=Completely satisfied. Flowsheets (Taken 12/25/2020 9513) Initial Score: 2 Target Score: 4 Plan of care reviewed with: Patient Patient specific goal for the day: Patient will report increased pain to staff Patient specific goal for the stay: Patient will have pain controlled by oral medications Achieve goal for stay: By discharge Patient Progress: Patient admitted from [place] for back pain. Admitted to room 732 and oriented to room and call light. Patient reported pain when moving but no pain while at rest. PRN pain medication available. Will continue to monitor. linical Team - Danae Sebastian RN - 12/25/2020 5:31 PM CDT Upon Admission to , skin assessment completed with Laci Evans RN Upon skin assessment including pressure points findings include: excoriation under abd fold, scattered bruising, redness around perineum Plan/Intervention: Encourage turns and repositioning,decrease moisture in abd fold and perineum Arrived at accompanied by EMS. Admitted for pain in back. Currently complains of pain. Settled in room 732 and oriented to call light, bed/tv control. Refer to Patient Admission Education. notified of patients arrival. documented in this encounter Plan of Treatment Date Type Specialty Care Team Description 02/04/2021 Appointment Radiology Trina Miranda MD [address] [place], [place] [id number] 02/04/2021 Appointment Radiology Trina Miranda MD [address] [place] [address] [phone] 02/11/2021 Office Visit Oncology Trina Miranda MD [address] [place] [address] [phone] 03/06/2021 Orders Only Laboratory 03/06/2021 Office Visit Family Practice Lg Duenas MD [address] [place], [place] [address] [phone] 05/09/2021 Office Visit Internal Medicine Tonja Rea PA-C [address] [place], [place] [id number] Name Type Priority Associated Diagnoses Order S chedule COMPLETE BLOOD COUNT WITH Lab Routine Ea rly AM draw for labs DIFFERENTIAL until discontin ued starting 2020, 14 completed MAGNESIUM Lab Routine Early AM draw f or labs until discontin ued starting 2020, 14 completed RENAL FUNCTION PANEL Lab Routine Early A M draw for labs until discontin ued starting 2020, 14 completed COMPLETE BLOOD COUNT WITH Lab Routine Controlled type 2 Expected: 02/05/2021, DIFFERENTIAL diabetes mellitus Expires: 0 02/08/2022 without complication, without long-term current use of insulin (HCC) Lymphedema of both lower extremitie s 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) Intractable pain Class 3 severe obesity due to excess calories with serious comorbidity and body mass index (BMI) of 45.0 to 49.9 in adult (HCC) Bone metastasis (HCC) COMPREHENSIVE METABOLIC Lab Routine Controlled type 2 Expected: 02/05/2021, PANEL diabetes mellitus Expires: 0 02/08/2022 without complication, without long-term current use of insulin (HCC) Lymphedema of both lower extremitie s 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) Intractable pain Class 3 severe obesity due to excess calories with serious comorbidity and body mass index (BMI) of 45.0 to 49.9 in adult (HCC) Bone metastasis (HCC) LDH TOTAL Lab Routine Controlled type 2 Expected: 02/05/2021, diabetes mellitus Expires: 0 02/08/2022 without complication, without long-term current use of insulin (HCC) Lymphedema of both lower extremitie s 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) Intractable pain Class 3 severe obesity due to excess calories with serious comorbidity and body mass index (BMI) of 45.0 to 49.9 in adult (HCC) Bone metastasis (HCC) MAGNESIUM Lab Routine Controlled type 2 Expected: 02/05/2021, diabetes mellitus Expires: 0 02/08/2022 without complication, without long-term current use of insulin (HCC) Lymphedema of both lower extremitie s 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) Intractable pain Class 3 severe obesity due to excess calories with serious comorbidity and body mass index (BMI) of 45.0 to 49.9 in adult (HCC) Bone metastasis (HCC) PETCT SKULL TO THIGH FDG PETCT Routine Controlled type 2 Expected: 01/08/2021 diabetes mellitus (Approxima te), Expires: without complication, 2021 without long-term current use of insulin (HCC) Lymphedema of both lower extremitie s 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) Intractable pain Class 3 severe obesity due to excess calories with serious comorbidity and body mass index (BMI) of 45.0 to 49.9 in adult (HCC) Bone metastasis (HCC) documented as of this encounter Implants Implanted Type Area Network Professional Device Shelf Model / Identifier Expiration Serial / Date Lot Cmnt Simplex P W Tobramyacin N [id number] Bx10/Ea - Sn/A Ortho L eft: JOSE 01/30/2014 [id number] / Implanted: Qty: 1 on 11/30/2012 by Benito Aquino MD at [facility] Other KNEE N/A / [id number] Knee Fem Ps Cmnt Depu 4 N Ea - Sn/A Total Jt Left: [employer] 06/01/2022 / Implanted: Qty: 1 on 11/30/2012 by Benito Aquino MD at [facility] Knee KNEE N/A / [id number] Knee Tib Base Mod Depu 4 N [id number] Ea - Sn/A Total Jt Left: [employer] 09/01/202240-000 / Implanted: Qty: 1 on 11/30/2012 by Benito Aquino MD at [facility] Knee KNEE N/A / [id number] Knee Ptla Dome 3peg Depu 35mm N [id number] Ea - Sn/A Total Jt Left: [employer] 09/01/2017 [id number] / Implanted: Qty: 1 on 11/30/2012 by Benito Aquino MD at [facility] Knee KNEE N/A / [id number] Knee Insrt Stbl Depu 4 10mm N [id number] Ea - Sn/A Total Jt Left: [employer] 05/02/2017 [id number] / Implanted: Qty: 1 on 11/30/2012 by Benito Aquino MD at [facility] Knee KNEE N/A / [id number] documented as of this encounter Procedures Procedure Name Priority Date/Time Associated Comments Diagnosis GLUCOSE BY METER, POCT Routine 01/08/2021 12:10 R esults for this PM CDT procedure are i n the results section. LAB ONLY-COMPLETE BLOOD Routine 01/08/2021 5:10 Results for this COUNT WITH DIFFERENTIAL AM CDT proc edure are in the results section. LAB ONLY-COMPLETE BLOOD Routine 01/08/2021 5:10 Results for this COUNT WITH DIFFERENTIAL AM CDT proc edure are in the results section. GLUCOSE BY METER, POCT Routine 01/08/2021 5:09 R esults for this AM CDT procedure are i n the results section. MAGNESIUM Routine 01/08/2021 5:09 Results for this AM CDT procedure are i n the results section. RENAL FUNCTION PANEL Routine 01/08/2021 5:09 Res ults for this AM CDT procedure are i n the results section. GLUCOSE BY METER, POCT Routine 01/07/2021 8:54 R esults for this PM CDT procedure are i n the results section. SARS-COV-2, INFLUENZA STAT 01/07/2021 6:03 Re sults for this A+B, AND/OR RSV NUCLEIC PM CDT proc edure are in ACID TESTING PANEL the resul ts section. GLUCOSE BY METER, POCT Routine 01/07/2021 5:34 R esults for this PM CDT procedure are i n the results section. GLUCOSE BY METER, POCT Routine 01/07/2021 12:25 R esults for this PM CDT procedure are i n the results section. GLUCOSE BY METER, POCT Routine 01/07/2021 6:16 R esults for this AM CDT procedure are i n the results section. LAB ONLY-COMPLETE BLOOD Routine 01/07/2021 5:56 Results for this COUNT WITH DIFFERENTIAL AM CDT proc edure are in the results section. MAGNESIUM Routine 01/07/2021 5:56 Results for this AM CDT procedure are i n the results section. RENAL FUNCTION PANEL Routine 01/07/2021 5:56 Res ults for this AM CDT procedure are i n the results section. LAB ONLY-COMPLETE BLOOD Routine 01/07/2021 5:56 Results for this COUNT WITH DIFFERENTIAL AM CDT proc edure are in the results section. GLUCOSE BY METER, POCT Routine 2021 9:13 R esults for this PM CDT procedure are i n the results section. GLUCOSE BY METER, POCT Routine 2021 5:07 R esults for this PM CDT procedure are i n the results section. GLUCOSE BY METER, POCT Routine 2021 11:26 R esults for this AM CDT procedure are i n the results section. LAB ONLY-COMPLETE BLOOD Routine 2021 6:32 Results for this COUNT WITH DIFFERENTIAL AM CDT proc edure are in the results section. MAGNESIUM Routine 2021 6:32 Results for this AM CDT procedure are i n the results section. RENAL FUNCTION PANEL Routine 2021 6:32 Res ults for this AM CDT procedure are i n the results section. LAB ONLY-COMPLETE BLOOD Routine 2021 6:32 Results for this COUNT WITH DIFFERENTIAL AM CDT proc edure are in the results section. GLUCOSE BY METER, POCT Routine 2021 4:35 R esults for this AM CDT procedure are i n the results section. GLUCOSE BY METER, POCT Routine 01/05/2021 9:40 R esults for this PM CDT procedure are i n the results section. GLUCOSE BY METER, POCT Routine 01/05/2021 5:10 R esults for this PM CDT procedure are i n the results section. GLUCOSE BY METER, POCT Routine 01/05/2021 11:47 R esults for this AM CDT procedure are i n the results section. LAB ONLY-COMPLETE BLOOD Routine 01/05/2021 6:22 Results for this COUNT WITH DIFFERENTIAL AM CDT proc edure are in the results section. MAGNESIUM Routine 01/05/2021 6:22 Results for this AM CDT procedure are i n the results section. RENAL FUNCTION PANEL Routine 01/05/2021 6:22 Res ults for this AM CDT procedure are i n the results section. LAB ONLY-COMPLETE BLOOD Routine 01/05/2021 6:22 Results for this COUNT WITH DIFFERENTIAL AM CDT proc edure are in the results section. GLUCOSE BY METER, POCT Routine 01/05/2021 5:08 R esults for this AM CDT procedure are i n the results section. GLUCOSE BY METER, POCT Routine 01/04/2021 9:41 R esults for this PM CDT procedure are i n the results section. GLUCOSE BY METER, POCT Routine 01/04/2021 8:40 R esults for this PM CDT procedure are i n the results section. GLUCOSE BY METER, POCT Routine 01/04/2021 5:44 R esults for this PM CDT procedure are i n the results section. GLUCOSE BY METER, POCT Routine 01/04/2021 4:49 R esults for this PM CDT procedure are i n the results section. GLUCOSE BY METER, POCT Routine 01/04/2021 11:32 R esults for this AM CDT procedure are i n the results section. LAB ONLY-COMPLETE BLOOD Routine 01/04/2021 7:49 Results for this COUNT WITH DIFFERENTIAL AM CDT proc edure are in the results section. HEPATIC FUNCTION PANEL Routine 01/04/2021 7:49 R esults for this AM CDT procedure are i n the results section. MAGNESIUM Routine 01/04/2021 7:49 Results for this AM CDT procedure are i n the results section. RENAL FUNCTION PANEL Routine 01/04/2021 7:49 Res ults for this AM CDT procedure are i n the results section. LAB ONLY-COMPLETE BLOOD Routine 01/04/2021 7:49 Results for this COUNT WITH DIFFERENTIAL AM CDT proc edure are in the results section. GLUCOSE BY METER, POCT Routine 01/04/2021 5:21 R esults for this AM CDT procedure are i n the results section. GLUCOSE BY METER, POCT Routine 01/03/2021 9:00 R esults for this PM CDT procedure are i n the results section. GLUCOSE BY METER, POCT Routine 01/03/2021 5:27 R esults for this PM CDT procedure are i n the results section. GLUCOSE BY METER, POCT Routine 01/03/2021 11:43 R esults for this AM CDT procedure are i n the results section. LAB ONLY-COMPLETE BLOOD Routine 01/03/2021 6:27 Results for this COUNT WITH DIFFERENTIAL AM CDT proc edure are in the results section. MAGNESIUM Routine 01/03/2021 6:27 Results for this AM CDT procedure are i n the results section. RENAL FUNCTION PANEL Routine 01/03/2021 6:27 Res ults for this AM CDT procedure are i n the results section. LAB ONLY-COMPLETE BLOOD Routine 01/03/2021 6:27 Results for this COUNT WITH DIFFERENTIAL AM CDT proc edure are in the results section. GLUCOSE BY METER, POCT Routine 01/03/2021 5:09 R esults for this AM CDT procedure are i n the results section. GLUCOSE BY METER, POCT Routine 01/02/2021 8:51 R esults for this PM CDT procedure are i n the results section. GLUCOSE BY METER, POCT Routine 01/02/2021 5:09 R esults for this PM CDT procedure are i n the results section. GLUCOSE BY METER, POCT Routine 01/02/2021 11:23 R esults for this AM CDT procedure are i n the results section. LAB ONLY-COMPLETE BLOOD Routine 01/02/2021 6:00 Results for this COUNT WITH DIFFERENTIAL AM CDT proc edure are in the results section. MAGNESIUM Routine 01/02/2021 6:00 Results for this AM CDT procedure are i n the results section. RENAL FUNCTION PANEL Routine 01/02/2021 6:00 Res ults for this AM CDT procedure are i n the results section. LAB ONLY-COMPLETE BLOOD Routine 01/02/2021 6:00 Results for this COUNT WITH DIFFERENTIAL AM CDT proc edure are in the results section. GLUCOSE BY METER, POCT Routine 01/02/2021 5:45 R esults for this AM CDT procedure are i n the results section. GLUCOSE BY METER, POCT Routine 01/01/2021 9:18 R esults for this PM CDT procedure are i n the results section. GLUCOSE BY METER, POCT Routine 01/01/2021 5:00 R esults for this PM CDT procedure are i n the results section. GLUCOSE BY METER, POCT Routine 01/01/2021 11:06 R esults for this AM CDT procedure are i n the results section. LAB ONLY-COMPLETE BLOOD Routine 01/01/2021 7:12 Results for this COUNT WITH DIFFERENTIAL AM CDT proc edure are in the results section. MAGNESIUM Routine 01/01/2021 7:12 Results for this AM CDT procedure are i n the results section. RENAL FUNCTION PANEL Routine 01/01/2021 7:12 Res ults for this AM CDT procedure are i n the results section. LAB ONLY-COMPLETE BLOOD Routine 01/01/2021 7:12 Results for this COUNT WITH DIFFERENTIAL AM CDT proc edure are in the results section. GLUCOSE BY METER, POCT Routine 01/01/2021 6:08 R esults for this AM CDT procedure are i n the results section. GLUCOSE BY METER, POCT Routine 12/31/2020 9:13 R esults for this PM CDT procedure are i n the results section. GLUCOSE BY METER, POCT Routine 12/31/2020 5:14 R esults for this PM CDT procedure are i n the results section. GLUCOSE BY METER, POCT Routine 12/31/2020 11:49 R esults for this AM CDT procedure are i n the results section. GLUCOSE BY METER, POCT Routine 12/31/2020 5:21 R esults for this AM CDT procedure are i n the results section. LAB ONLY-COMPLETE BLOOD Routine 12/31/2020 5:02 Results for this COUNT WITH DIFFERENTIAL AM CDT proc edure are in the results section. MAGNESIUM Routine 12/31/2020 5:02 Results for this AM CDT procedure are i n the results section. RENAL FUNCTION PANEL Routine 12/31/2020 5:02 Res ults for this AM CDT procedure are i n the results section. LAB ONLY-COMPLETE BLOOD Routine 12/31/2020 5:02 Results for this COUNT WITH DIFFERENTIAL AM CDT proc edure are in the results section. GLUCOSE BY METER, POCT Routine 12/30/2020 8:45 R esults for this PM CDT procedure are i n the results section. GLUCOSE BY METER, POCT Routine 12/30/2020 5:18 R esults for this PM CDT procedure are i n the results section. GLUCOSE BY METER, POCT Routine 12/30/2020 11:48 R esults for this AM CDT procedure are i n the results section. LAB ONLY-COMPLETE BLOOD Routine 12/30/2020 6:30 Results for this COUNT WITH DIFFERENTIAL AM CDT proc edure are in the results section. MAGNESIUM Routine 12/30/2020 6:30 Results for this AM CDT procedure are i n the results section. RENAL FUNCTION PANEL Routine 12/30/2020 6:30 Res ults for this AM CDT procedure are i n the results section. LAB ONLY-COMPLETE BLOOD Routine 12/30/2020 6:30 Results for this COUNT WITH DIFFERENTIAL AM CDT proc edure are in the results section. GLUCOSE BY METER, POCT Routine 12/30/2020 5:13 R esults for this AM CDT procedure are i n the results section. GLUCOSE BY METER, POCT Routine 12/29/2020 8:57 R esults for this PM CDT procedure are i n the results section. GLUCOSE BY METER, POCT Routine 12/29/2020 5:20 R esults for this PM CDT procedure are i n the results section. GLUCOSE BY METER, POCT Routine 12/29/2020 11:17 R esults for this AM CDT procedure are i n the results section. LAB ONLY-COMPLETE BLOOD Routine 12/29/2020 6:56 Results for this COUNT WITH DIFFERENTIAL AM CDT proc edure are in the results section. MAGNESIUM Routine 12/29/2020 6:56 Results for this AM CDT procedure are i n the results section. RENAL FUNCTION PANEL Routine 12/29/2020 6:56 Res ults for this AM CDT procedure are i n the results section. LAB ONLY-COMPLETE BLOOD Routine 12/29/2020 6:56 Results for this COUNT WITH DIFFERENTIAL AM CDT proc edure are in the results section. GLUCOSE BY METER, POCT Routine 12/29/2020 5:12 R esults for this AM CDT procedure are i n the results section. GLUCOSE BY METER, POCT Routine 12/28/2020 9:13 R esults for this PM CDT procedure are i n the results section. GLUCOSE BY METER, POCT Routine 12/28/2020 5:23 R esults for this PM CDT procedure are i n the results section. GLUCOSE BY METER, POCT Routine 12/28/2020 11:42 R esults for this AM CDT procedure are i n the results section. LAB ONLY-COMPLETE BLOOD Routine 12/28/2020 5:47 Results for this COUNT WITH DIFFERENTIAL AM CDT proc edure are in the results section. MAGNESIUM Routine 12/28/2020 5:47 Results for this AM CDT procedure are i n the results section. RENAL FUNCTION PANEL Routine 12/28/2020 5:47 Res ults for this AM CDT procedure are i n the results section. LAB ONLY-COMPLETE BLOOD Routine 12/28/2020 5:47 Results for this COUNT WITH DIFFERENTIAL AM CDT proc edure are in the results section. GLUCOSE BY METER, POCT Routine 12/28/2020 5:23 R esults for this AM CDT procedure are i n the results section. GLUCOSE BY METER, POCT Routine 12/27/2020 8:36 R esults for this PM CDT procedure are i n the results section. GLUCOSE BY METER, POCT Routine 12/27/2020 5:25 R esults for this PM CDT procedure are i n the results section. GLUCOSE BY METER, POCT Routine 12/27/2020 11:22 R esults for this AM CDT procedure are i n the results section. LAB ONLY-COMPLETE BLOOD Routine 12/27/2020 7:38 Results for this COUNT WITH DIFFERENTIAL AM CDT proc edure are in the results section. MAGNESIUM Routine 12/27/2020 7:38 Results for this AM CDT procedure are i n the results section. RENAL FUNCTION PANEL Routine 12/27/2020 7:38 Res ults for this AM CDT procedure are i n the results section. LAB ONLY-COMPLETE BLOOD Routine 12/27/2020 7:38 Results for this COUNT WITH DIFFERENTIAL AM CDT proc edure are in the results section. GLUCOSE BY METER, POCT Routine 12/27/2020 5:50 R esults for this AM CDT procedure are i n the results section. GLUCOSE BY METER, POCT Routine 12/26/2020 9:16 R esults for this PM CDT procedure are i n the results section. GLUCOSE BY METER, POCT Routine 12/26/2020 5:43 R esults for this PM CDT procedure are i n the results section. TISSUE EXAM Routine 12/26/2020 4:56 Results for this PM CDT procedure are i n the results section. IR BIOPSY OR ASPIRATION Routine 12/26/2020 4:56 Results for this PM CDT procedure are i n the results section. PROTIME/INR STAT 12/26/2020 2:25 Results for this PM CDT procedure are i n the results section. GLUCOSE BY METER, POCT Routine 12/26/2020 12:35 R esults for this PM CDT procedure are i n the results section. CT ABDOMEN PELVIS WITH Routine 12/26/2020 12:08 R esults for this CONTRAST PM CDT procedure are i n the results section. CT CHEST WITH CONTRAST Routine 12/26/2020 12:06 R esults for this PM CDT procedure are i n the results section. LAB ONLY-COMPLETE BLOOD Routine 12/26/2020 7:11 Results for this COUNT WITH DIFFERENTIAL AM CDT proc edure are in the results section. LAB ONLY - Routine 12/26/2020 7:11 Results for this ELECTROPHORESIS, SERUM AM CDT proce dure are in REFLEX IMMUNOFIX the results section. LAB ONLY - Routine 12/26/2020 7:11 Results for this ELECTROPHORESIS, SERUM AM CDT proce dure are in REFLEX IMMUNOFIX the results section. LAB ONLY - TOTAL PROTEIN Routine 12/26/2020 7:11 Results for this EPP AM CDT procedure are i n the results section. IMMUNOGLOBULINS - IGA, Routine 12/26/2020 7:11 R esults for this IGG, IGM AM CDT procedure are i n the results section. CA 125 Routine 12/26/2020 7:11 Results for this AM CDT procedure are i n the results section. VITAMIN B12 Routine 12/26/2020 7:11 Results for this AM CDT procedure are i n the results section. CARCINOEMBRYONIC ANTIGEN Routine 12/26/2020 7:11 Results for this AM CDT procedure are i n the results section. MAGNESIUM Routine 12/26/2020 7:11 Results for this AM CDT procedure are i n the results section. RENAL FUNCTION PANEL Routine 12/26/2020 7:11 Res ults for this AM CDT procedure are i n the results section. CA 19-9 Routine 12/26/2020 7:11 Results for this AM CDT procedure are i n the results section. CA 15-3 Routine 12/26/2020 7:11 Results for this AM CDT procedure are i n the results section. LAB ONLY-COMPLETE BLOOD Routine 12/26/2020 7:11 Results for this COUNT WITH DIFFERENTIAL AM CDT proc edure are in the results section. GLUCOSE BY METER, POCT Routine 12/26/2020 5:31 R esults for this AM CDT procedure are i n the results section. GLUCOSE BY METER, POCT Routine 12/25/2020 9:37 R esults for this PM CDT procedure are i n the results section. LAB ONLY-URINE Routine 12/25/2020 9:29 Results f or this MICROSCOPIC REFLEX PM CDT procedure are in the results section. URINE DIP, REFLEX TO Routine 12/25/2020 9:29 Res ults for this MICROSCOPIC, REFLEX TO PM CDT proce dure are in CULTURE the results section. LAB ONLY-COMPLETE BLOOD ИРИНА 12/25/2020 6:31 Results for this COUNT WITH DIFFERENTIAL PM CDT proc edure are in the results section. GLYCATED HEMOGLOBIN ИРИНА 12/25/2020 6:31 Resu lts for this PM CDT procedure are i n the results section. URIC ACID Routine 12/25/2020 6:31 Results for this PM CDT procedure are i n the results section. MAGNESIUM ИРИНА 12/25/2020 6:31 Results for this PM CDT procedure are i n the results section. COMPREHENSIVE METABOLIC ИРИНА 12/25/2020 6:31 Results for this PANEL PM CDT procedure are i n the results section. LAB ONLY-COMPLETE BLOOD [facility] 12/25/2020 6:31 Results for this COUNT WITH DIFFERENTIAL PM CDT proc edure are in the results section. GLUCOSE BY METER, POCT Routine 12/25/2020 6:30 R esults for this PM CDT procedure are i n the results section. documented in this encounter Results GLUCOSE BY METER, POCT (01/08/2021 12:10 PM CDT) Pathologist [facility] Glucose POC 126 (H) 70 - 99 mg/dL [facility] Specimen Blood - Blood specimen (specimen) Performing Organization Address City/State/Zipcode Phone Number [address] [address] LAB ONLY-COMPLETE BLOOD COUNT WITH DIFFERENTIAL (01/08/2021 5:10 AM CDT) Pathologist [facility] WBC 6.4 4.0 - 11.0 K/uL [facility] RBC 3.40 (L) 3.80 - 5.30 [facility] M/uL CLINIC Hemoglobin 11.4 (L) 11.5 - 15.8 [facility] g/dL [facility] Hematocrit 33.0 (L) 35.0 - 45.0 % [facility] MCV 97.1 80.0 - 98.[address] [facility] MCH 33.5 25.5 - 34.[address] [facility] MCHC 34.5 31.5 - 36.5 [facility] g/dL [facility] RDW-CV 14.9 11.5 - 15.5 % [facility] RDW-SD 46.9 35.5 - 50.0 [facility] Platelet Count 279 140 - 400 K/uL [facility] MPV 11.2 8.5 - 12.0 [facility] Seg Neut Absolute 4.1 1.8 - 8.0 K/uL [facility] Lymphocytes Absolute 0.9 0.8 - 4.1 K/uL [facility] Monocytes Absolute 0.4 0.0 - 1.0 K/uL [facility] Eosinophils Absolute 0.9 (H) 0.0 - 0.7 K/uL [facility] Basophil Absolute 0.0 0.0 - 0.2 K/uL [facility] Immature Granulocyte 0.01 0.00 - 0.06 [facility] Absolute K/uL CLINIC Neutrophils Abs. 4,100 /uL [facility] (Segs and Bands) [facility] Neutrophils Percent 63.9 % [facility] Lymphocytes Percent 14.2 % [facility] Monocytes Percent 6.8 % [facility] Immature Granulocyte 0.2 % [facility] Percent CLINIC Eosinophils Percent 14.3 % [facility] Basophil Percent 0.6 % [facility] Nucleated RBC 0 /[address] [facility] Specimen Blood - Blood specimen (specimen) Performing Organization Address City/[facility] Phone Number [address] [address] [phone] GLUCOSE BY METER, POCT (01/08/2021 5:09 AM CDT) Pathologist [facility] Glucose POC 137 (H) 70 - 99 mg/dL [facility] Specimen Blood - Blood specimen (specimen) Performing Organization Address City/[facility] Phone Number [address] [address] [phone] RENAL FUNCTION PANEL (01/08/2021 5:09 AM CDT) Pathologist [facility] Glucose 147 (H) 70 - 100 mg/dL [facility] BUN 25 (H) 6 - 22 mg/dL [facility] Creatinine 0.75 0.60 - 1.10 [facility] mg/dL CLINIC BUN/Creatinine Ratio 33.3 (H) 10.0 - 25.[address] [facility] Sodium 139 135 - 145 meq/L [facility] Potassium 3.6 3.5 - 5.3 meq/L [facility] Chloride 103 99 - 110 meq/L [facility] CO2 27 20 - 29 meq/L [facility] Anion Gap with K 13 6 - 20 meq/L [facility] Calcium 9.4 8.5 - 10.5 [facility] mg/dL CLINIC Phosphorus 3.3 2.5 - 4.5 mg/dL [facility] Albumin 3.5 3.5 - 5.0 g/dL [facility] Corrected Calcium 9.8 8.5 - 10.5 [facility] mg/dL [facility] Age [address] [facility] eGFR Non- 74 >=60 [facility] [place] mL/min/1.73m2 [facility] eGFR 90 >=60 [facility] mL/min/1.73m2 CLINIC Specimen Blood - Blood specimen (specimen) Performing Organization Address [facility] Phone Number [address] [address] MAGNESIUM (01/08/2021 5:09 AM CDT) Pathologist [facility] Magnesium 1.9 1.8 - 2.4 mg/dL [facility] Specimen Blood - Blood specimen (specimen) Performing Organization Address [facility] Phone Number [address] [address] [phone] GLUCOSE BY METER, POCT (01/07/2021 8:54 PM CDT) Pathologist [facility] Glucose POC 174 (H) 70 - 99 mg/dL [facility] Specimen Blood - Blood specimen (specimen) Performing Organization Address [facility] Phone Number [address] [address] SARS-COV-2, INFLUENZA A+B, AND/OR RSV NUCLEIC ACID TESTING PANEL (01/07/2021 6:03 PM CDT) Pathologist [facility] SARS-CoV-2 Not Detected Not Detected [facility] Specimen Respiratory - Nasopharyngeal swab (speci men) Narrative Performed At Please read entire report. Results for Influenza A and B or [facility] RSV may also be available depending on which viruses y our provider selected for testing. Your Covid-19 test is negative: 1)Avoiding close contact is s till recommended. 2)Cover your coughs and snee zes. 3)Wash your hands often with soap and wate r for at least 20 seconds or use an alcohol-based sex crimes detective containing over 60% alcohol. Avoid touch ing your face. 4)Avoid sharing personal household items, including dishes, cups, utensils, towels, clothing, or bedding. These items should be cleaned thoroughly with soap and water after use. Clean all "high touch" surfaces i n your home daily. 5) Monitor your symptoms. Contact your provider if you are feeling worse. If you have shortness of breath or difficulty breathing, call [phone]. This assay is for in vitro diagnostic use under FDA Em ergency Use Authorization only. Optimal performance of this test requires appropriate specimen collection, storage, and transp ort to the test site. Detection of SARS-CoV-2 RNA may be affected by sample collection methods, patient factors (eg, presence of symptoms), and/or stage of infection. False-negative results may arise from degradation of v iral RNA during shipping/storage. Results should be interpreted by a trained professiona l in conjunction with the patient s history and clinical signs and symptoms, and epidemiological risk factors. Negative (Not Detected) results do not preclude infect ion with the SARS-CoV-2 virus and should not be the sole b asis of patient treatment/management or public health decision . Follow up testing should be performed according to the current CDC recommendations. This test was performed by polymerase chain reaction ( PCR) on the GeneXpert instrument. Performing Organization Address City/[facility]/Zipcode Phone Number [address] [address] GLUCOSE BY METER, POCT (01/07/2021 5:34 PM CDT) [facility] Glucose POC 208 (H) 70 - 99 mg/dL [facility] Specimen Blood - Blood specimen (specimen) Performing Organization Address [facility]/Zipcode Phone Number [address] [phone] GLUCOSE BY METER, POCT (01/07/2021 12:25 PM CDT) Pathologist [facility] Glucose POC 105 (H) 70 - 99 mg/dL [facility] Specimen Blood - Blood specimen (specimen) Performing Organization Address City/[facility]/Zipcode Phone Number [facility] [address] [place] [address] GLUCOSE BY METER, POCT (01/07/2021 6:16 AM CDT) Pathologist [facility] Glucose POC 138 (H) 70 - 99 mg/dL [facility] Specimen Blood - Blood specimen (specimen) Performing Organization Address City/[facility] Phone Number [address] [address] [phone] LAB ONLY-COMPLETE BLOOD COUNT WITH DIFFERENTIAL (01/07/2021 5:56 AM CDT) WBC 6.3 4.0 - 11.0 K/uL [facility] RBC 3.28 (L) 3.80 - 5.30 [facility] M/uL CLINIC Hemoglobin 11.7 11.5 - 15.8 [facility] g/dL [facility] Hematocrit 32.9 (L) 35.0 - 45.0 % [facility] MCV 100.3 (H) 80.0 - 98.[address] [facility] MCH 35.7 (H) 25.5 - 34.[address] [facility] MCHC 35.6 31.5 - 36.5 [facility] g/dL [facility] RDW-CV 17.3 (H) 11.5 - 15.5 % [facility] RDW-SD 47.1 35.5 - 50.[address] [facility] Platelet Count 267 140 - 400 K/uL [facility] MPV 10.8 8.5 - 12.[address] [facility] Seg Neut Absolute 4.3 1.8 - 8.0 K/uL [facility] Lymphocytes Absolute 0.9 0.8 - 4.1 K/uL [facility] Monocytes Absolute 0.4 0.0 - 1.0 K/uL [facility] Eosinophils Absolute 0.7 0.0 - 0.7 K/uL [facility] Basophil Absolute 0.0 0.0 - 0.2 K/uL [facility] Immature Granulocyte 0.01 0.00 - 0.06 [facility] Absolute K/uL [facility] Neutrophils Abs. 4,300 /uL [facility] (Segs and Bands) [facility] Neutrophils Percent 67.2 % [facility] Lymphocytes Percent 14.2 % [facility] Monocytes Percent 6.3 % [facility] Immature Granulocyte 0.2 % [facility] Percent CLINIC Eosinophils Percent 11.5 % [facility] Basophil Percent 0.6 % [facility] Nucleated RBC 0 /[address] [facility] Specimen Blood - Blood specimen (specimen) Performing Organization Address City/[facility] Phone Number [address] [phone] RENAL FUNCTION PANEL (01/07/2021 5:56 AM CDT) [facility]ologist [facility] Glucose 134 (H) 70 - 100 mg/dL [facility] BUN 26 (H) 6 - 22 mg/dL [facility] Creatinine 0.73 0.60 - 1.10 [facility] mg/dL [facility] BUN/Creatinine Ratio 35.6 (H) 10.0 - 25.[address] [facility] Sodium 139 135 - 145 meq/L [facility] Potassium 3.9 3.5 - 5.3 meq/L [facility] Chloride 104 99 - 110 meq/L [facility] CO2 27 20 - 29 meq/L [facility] Anion Gap with K 12 6 - 20 meq/L [facility] Calcium 9.4 8.5 - 10.5 [facility] mg/dL [facility] Phosphorus 2.9 2.5 - 4.5 mg/dL [facility] Albumin 3.4 (L) 3.5 - 5.0 g/dL [facility] Corrected Calcium 9.9 8.5 - 10.5 [facility] mg/dL [facility] Age [address] [facility] eGFR Non- 76 >=60 [facility] [place] mL/min/1.73m2 [facility] eGFR >90 >=60 [facility] mL/min/1.73m2 CLINIC Specimen Blood - Blood specimen (specimen) Performing Organization Address City/[facility] Phone Number [address] [phone] MAGNESIUM (01/07/2021 5:56 AM CDT) Pathologist Sig [facility] Magnesium 1.9 1.8 - 2.4 mg/dL [facility] Specimen Blood - Blood specimen (specimen) Performing Organization Address [facility] Phone Number [address] [address] GLUCOSE BY METER, POCT (2021 9:13 PM CDT) Pathologist Sig nature Glucose POC 229 (H) 70 - 99 mg/dL [facility] Specimen Blood - Blood specimen (specimen) Performing Organization Address [facility] Phone Number [address] [address] GLUCOSE BY METER, POCT (2021 5:07 PM CDT) Pathologist Sig nature Glucose POC 198 (H) 70 - 99 mg/dL [facility] Specimen Blood - Blood specimen (specimen) Performing Organization Address [facility] Phone Number [address] [address] [phone] GLUCOSE BY METER, POCT (2021 11:26 AM CDT) Pathologist Sig nature Glucose POC 129 (H) 70 - 99 mg/dL [facility] Specimen Blood - Blood specimen (specimen) Performing Organization Address [facility] Number [address] [address] LAB ONLY-COMPLETE BLOOD COUNT WITH DIFFERENTIAL (2021 6:32 AM CDT) Pathologist Sig [facility] WBC 6.7 4.0 - 11.0 K/uL [facility] RBC 3.24 (L) 3.80 - 5.30 [facility] M/uL CLINIC Hemoglobin 11.7 11.5 - 15.8 [facility] g/dL [facility] Hematocrit 32.3 (L) 35.0 - 45.0 % [facility] MCV 99.7 (H) 80.0 - 98.[address] [facility] MCH 36.1 (H) 25.5 - 34.[address] [facility] MCHC 36.2 31.5 - 36.5 [facility] g/dL [facility] RDW-CV 16.6 (H) 11.5 - 15.5 % [facility] RDW-SD 47.2 35.5 - 50.[address] [facility] Platelet Count 278 140 - 400 K/uL [facility] MPV 11.3 8.5 - 12.[address] [facility] Seg Neut Absolute 4.7 1.8 - 8.0 K/uL [facility] Lymphocytes Absolute 0.9 0.8 - 4.1 K/uL [facility] Monocytes Absolute 0.4 0.0 - 1.0 K/uL [facility] Eosinophils Absolute 0.6 0.0 - 0.7 K/uL [facility] Basophil Absolute 0.0 0.0 - 0.2 K/uL [facility] Immature Granulocyte 0.01 0.00 - 0.06 [facility] Absolute K/uL [facility] Neutrophils Abs. 4,700 /uL [facility] (Segs and Bands) [facility] Neutrophils Percent 71.0 % [facility] Lymphocytes Percent 13.5 % [facility] Monocytes Percent 6.3 % [facility] Immature Granulocyte 0.1 % [facility] Percent CLINIC Eosinophils Percent 8.7 % [facility] Basophil Percent 0.4 % [facility] Nucleated RBC 0 /[address] [facility] Specimen Blood - Blood specimen (specimen) Performing Organization Address City/State/Zipcode Phone Number [address] [address] [phone] RENAL FUNCTION PANEL (2021 6:32 AM CDT) Pathologist Sig nature Glucose 128 (H) 70 - 100 mg/dL [facility] BUN 31 (H) 6 - 22 mg/dL [facility] Creatinine 0.78 0.60 - 1.10 [facility] mg/dL [facility] BUN/Creatinine Ratio 39.7 (H) 10.0 - 25.[address] [facility] Sodium 138 135 - 145 meq/L [facility] Potassium 3.5 3.5 - 5.3 meq/L [facility] Chloride 103 99 - 110 meq/L [facility] CO2 26 20 - 29 meq/L [facility] Anion Gap with K 13 6 - 20 meq/L [facility] Calcium 9.3 8.5 - 10.5 [facility] mg/dL CLINIC Phosphorus 3.1 2.5 - 4.5 mg/dL [facility] Albumin 3.4 (L) 3.5 - 5.0 g/dL [facility] Corrected Calcium 9.8 8.5 - 10.5 [facility] mg/dL [facility] Age [address] [facility] eGFR Non- 71 >=60 [facility] [place] mL/min/1.73m2 [facility] eGFR 86 >=60 [facility] mL/min/1.73m2 CLINIC Specimen Blood - Blood specimen (specimen) Performing Organization Address [facility] Phone Number [address] [address] MAGNESIUM (2021 6:32 AM CDT) Pathologist Sig nature Magnesium 2.0 1.8 - 2.4 mg/dL [facility] Specimen Blood - Blood specimen (specimen) Performing Organization Address [facility] Phone Number [address] [address] GLUCOSE BY METER, POCT (2021 4:35 AM CDT) Pathologist Sig nature Glucose POC 140 (H) 70 - 99 mg/dL [facility] Specimen Blood - Blood specimen (specimen) Performing Organization Address [facility] Phone Number [address] [address] GLUCOSE BY METER, POCT (01/05/2021 9:40 PM CDT) Pathologist Sig nature Glucose POC 166 (H) 70 - 99 mg/dL [facility] Specimen Blood - Blood specimen (specimen) Performing Organization Address [facility] Phone Number [address] [address] GLUCOSE BY METER, POCT (01/05/2021 5:10 PM CDT) Pathologist Sig nature Glucose POC 160 (H) 70 - 99 mg/dL [facility] Specimen Blood - Blood specimen (specimen) Performing Organization Address City/[facility]/Zipcode Phone Number [facility] [address] [place] [address] GLUCOSE BY METER, POCT (01/05/2021 11:47 AM CDT) Pathologist Sig [facility] Glucose POC 138 (H) 70 - 99 mg/dL [facility] Specimen Blood - Blood specimen (specimen) Performing Organization Address City/[facility] Phone Number [facility] [address] [place] [address] LAB ONLY-COMPLETE BLOOD COUNT WITH DIFFERENTIAL (01/05/2021 6:22 AM CDT) Pathologist [facility] WBC 7.0 4.0 - 11.0 K/uL [facility] RBC 3.99 3.80 - 5.30 M/uL [facility] Hemoglobin 12.3 11.5 - 15.8 g/dL [facility] Hematocrit 37.3 35.0 - 45.0 % [facility] MCV 93.5 80.0 - 98.[address] [facility] MCH 30.8 25.5 - 34.[address] [facility] MCHC 33.0 31.5 - 36.5 g/dL [facility] RDW-CV 14.1 11.5 - 15.5 % [facility] RDW-SD 46.6 35.5 - 50.0 [facility] Platelet Count 248 140 - 400 K/uL [facility] MPV 11.5 8.5 - 12.0 [facility] Seg Neut Absolute 5.1 1.8 - 8.0 K/uL [facility] Lymphocytes Absolute 1.0 0.8 - 4.1 K/uL [facility] Monocytes Absolute 0.6 0.0 - 1.0 K/uL [facility] Eosinophils Absolute 0.3 0.0 - 0.7 K/uL [facility] Basophil Absolute 0.0 0.0 - 0.2 K/uL [facility] Immature Granulocyte 0.00 0.00 - 0.06 K/uL [facility] Absolute CLINIC Neutrophils Abs. (Segs 5,100 /uL [facility] and Bands) [facility] Neutrophils Percent 73.0 % [facility] Lymphocytes Percent 13.8 % [facility] Monocytes Percent 8.0 % [facility] Immature Granulocyte 0.0 % [facility] Percent CLINIC Eosinophils Percent 4.9 % [facility] Basophil Percent 0.3 % [facility] Nucleated RBC 0 /[address] [facility] Specimen Blood - Blood specimen (specimen) Performing Organization Address [facility] Phone Number [address] [address] RENAL FUNCTION PANEL (01/05/2021 6:22 AM CDT) Pathologist Sig nature Glucose 135 (H) 70 - 100 mg/dL [facility] BUN 36 (H) 6 - 22 mg/dL [facility] Creatinine 0.79 0.60 - 1.10 [facility] mg/dL [facility] BUN/Creatinine Ratio 45.6 (H) 10.0 - 25.[address] [facility] Sodium 139 135 - 145 meq/L [facility] Potassium 3.4 (L) 3.5 - 5.3 meq/L [facility] Chloride 104 99 - 110 meq/L [facility] CO2 25 20 - 29 meq/L [facility] Anion Gap with K 13 6 - 20 meq/L [facility] Calcium 9.5 8.5 - 10.5 [facility] mg/dL [facility] Phosphorus 3.3 2.5 - 4.5 mg/dL [facility] Albumin 3.5 3.5 - 5.0 g/dL [facility] Corrected Calcium 9.9 8.5 - 10.5 [facility] mg/dL [facility] Age [address] [facility] eGFR Non- 70 >=60 [facility] [place] mL/min/1.73m2 [facility] eGFR 85 >=60 [facility] mL/min/1.73m2 [facility] Specimen Blood - Blood specimen (specimen) Performing Organization Address [facility] Phone Number [address] [address] MAGNESIUM (01/05/2021 6:22 AM CDT) Pathologist Sig nature Magnesium 2.0 1.8 - 2.4 mg/dL [facility] Specimen Blood - Blood specimen (specimen) Performing Organization Address [facility] Phone Number [address] [phone] GLUCOSE BY METER, POCT (01/05/2021 5:08 AM CDT) Pathologist Sig nature Glucose POC 134 (H) 70 - 99 mg/dL [facility] Specimen Blood - Blood specimen (specimen) Performing Organization Address [facility] Phone Number [address] [address] GLUCOSE BY METER, POCT (01/04/2021 9:41 PM CDT) Pathologist Sig nature Glucose POC 217 (H) 70 - 99 mg/dL [facility] Specimen Blood - Blood specimen (specimen) Performing Organization Address [facility] Phone Number [address] [address] GLUCOSE BY METER, POCT (01/04/2021 8:40 PM CDT) Pathologist Sig nature Glucose POC 240 (H) 70 - 99 mg/dL [facility] Specimen Blood - Blood specimen (specimen) Performing Organization Address [facility] Number [address] [phone] GLUCOSE BY METER, POCT (01/04/2021 5:44 PM CDT) Pathologist Sig nature Glucose POC 120 (H) 70 - 99 mg/dL [facility] Specimen Blood - Blood specimen (specimen) Performing Organization Address [facility] Phone Number [address] [address] GLUCOSE BY METER, POCT (01/04/2021 4:49 PM CDT) Pathologist Sig nature Glucose POC 154 (H) 70 - 99 mg/dL [facility] Specimen Blood - Blood specimen (specimen) Performing Organization Address [facility] Phone Number [address] [place] [phone] GLUCOSE BY METER, POCT (01/04/2021 11:32 AM CDT) Pathologist Sig [facility] Glucose POC 167 (H) 70 - 99 mg/dL [facility] Specimen Blood - Blood specimen (specimen) Performing Organization Address [facility] Phone Number [address] [address] [phone] HEPATIC FUNCTION PANEL (01/04/2021 7:49 AM CDT) Pathologist Sig [facility] Alkaline Phosphatase 169 (H) 30 - 150 U/L [facility] AST - SGOT 18 0 - 35 U/L [facility] ALT - SGPT 11 0 - 55 U/L [facility] Bilirubin Total 0.6 0.2 - 1.2 mg/dL [facility] Bilirubin Indirect 0.3 0.0 - 0.8 mg/dL [facility] Bilirubin Direct 0.3 0.0 - 0.4 mg/dL [facility] Albumin 3.6 3.5 - 5.0 g/dL [facility] Protein Total 7.3 6.0 - 8.2 g/dL [facility] Specimen Blood - Blood specimen (specimen) Performing Organization Address [facility] Phone Number [address] [address] [phone] LAB ONLY-COMPLETE BLOOD COUNT WITH DIFFERENTIAL (01/04/2021 7:49 AM CDT) Pathologist Sig [facility] WBC 6.6 4.0 - 11.0 K/uL [facility] RBC 3.76 (L) 3.80 - 5.30 [facility] M/uL CLINIC Hemoglobin 12.6 11.5 - 15.8 [facility] g/dL [facility] Hematocrit 36.5 35.0 - 45.0 % [facility] MCV 97.1 80.0 - 98.[address] [facility] MCH 33.5 25.5 - 34.[address] [facility] MCHC 34.5 31.5 - 36.5 [facility] g/dL [facility] RDW-CV 16.1 (H) 11.5 - 15.5 % [facility] RDW-SD 47.4 35.5 - 50.[address] [facility] Platelet Count 277 140 - 400 K/uL [facility] MPV 11.0 8.5 - 12.[address] [facility] Seg Neut Absolute 4.8 1.8 - 8.0 K/uL [facility] Lymphocytes Absolute 1.0 0.8 - 4.1 K/uL [facility] Monocytes Absolute 0.5 0.0 - 1.0 K/uL [facility] Eosinophils Absolute 0.3 0.0 - 0.7 K/uL [facility] Basophil Absolute 0.0 0.0 - 0.2 K/uL [facility] Immature Granulocyte 0.01 0.00 - 0.06 [facility] Absolute K/uL [facility] Neutrophils Abs. 4,800 /uL [facility] (Segs and Bands) [facility] Neutrophils Percent 72.5 % [facility] Lymphocytes Percent 14.4 % [facility] Monocytes Percent 7.9 % [facility] Immature Granulocyte 0.2 % [facility] Percent CLINIC Eosinophils Percent 4.5 % [facility] Basophil Percent 0.5 % [facility] Nucleated RBC 0 /[address] [facility] Specimen Blood - Blood specimen (specimen) Performing Organization Address City/State/[place] [address] [phone] RENAL FUNCTION PANEL (01/04/2021 7:49 AM CDT) [facility] Glucose 117 (H) 70 - 100 mg/dL [facility] BUN 34 (H) 6 - 22 mg/dL [facility] Creatinine 0.88 0.60 - 1.10 [facility] mg/dL [facility] BUN/Creatinine Ratio 38.6 (H) 10.0 - 25.[address] [facility] Sodium 141 135 - 145 meq/L [facility] Potassium 3.1 (L) 3.5 - 5.3 meq/L [facility] Chloride 101 99 - 110 meq/L [facility] CO2 30 (H) 20 - 29 meq/L [facility] Anion Gap with K 13 6 - 20 meq/L [facility] Calcium 9.9 8.5 - 10.5 [facility] mg/dL CLINIC Phosphorus 3.3 2.5 - 4.5 mg/dL [facility] Albumin 3.6 3.5 - 5.0 g/dL [facility] Corrected Calcium 10.2 8.5 - 10.5 [facility] mg/dL [facility]IC Age [address] [facility] eGFR Non- 62 >=60 [facility] [place] mL/min/1.73m2 [facility]INIC eGFR 75 >=60 [facility] mL/min/1.73m2 [facility] Specimen Blood - Blood specimen (specimen) Performing Organization Address [facility] Phone Number [address] [address] [phone] MAGNESIUM (01/04/2021 7:49 AM CDT) Pathologist Sig nature Magnesium 2.0 1.8 - 2.4 mg/dL [facility] Specimen Blood - Blood specimen (specimen) Performing Organization Address [facility] Number [address] [address] GLUCOSE BY METER, POCT (01/04/2021 5:21 AM CDT) Pathologist Sig nature Glucose POC 131 (H) 70 - 99 mg/dL [facility] Specimen Blood - Blood specimen (specimen) Performing Organization Address [facility] Phone Number [address] [address] GLUCOSE BY METER, POCT (01/03/2021 9:00 PM CDT) Pathologist Sig nature Glucose POC 185 (H) 70 - 99 mg/dL [facility] Specimen Blood - Blood specimen (specimen) Performing Organization Address [facility] Phone Number [address] [address] [phone] GLUCOSE BY METER, POCT (01/03/2021 5:27 PM CDT) Pathologist Sig nature Glucose POC 125 (H) 70 - 99 mg/dL [facility] Specimen Blood - Blood specimen (specimen) Performing Organization Address [facility] Phone Number [address] [address] [phone] GLUCOSE BY METER, POCT (01/03/2021 11:43 AM CDT) Pathologist Sig nature Glucose POC 165 (H) 70 - 99 mg/dL [facility] Specimen Blood - Blood specimen (specimen) Performing Organization Address City/State/Zipcode Phone Number [facility] [address] [place] [address] [phone] LAB ONLY-COMPLETE BLOOD COUNT WITH DIFFERENTIAL (01/03/2021 6:27 AM CDT) Pathologist Sig nature WBC 8.2 4.0 - 11.0 K/uL [facility] RBC 3.75 (L) 3.80 - 5.30 [facility] M/uL CLINIC Hemoglobin 12.9 11.5 - 15.8 [facility] g/dL [facility] Hematocrit 36.9 35.0 - 45.0 % [facility] MCV 98.4 (H) 80.0 - 98.[address] [facility] MCH 34.4 (H) 25.5 - 34.[address] [facility] MCHC 35.0 31.5 - 36.5 [facility] g/dL [facility] RDW-CV 16.2 (H) 11.5 - 15.5 % [facility] RDW-SD 47.7 35.5 - 50.[address] [facility] Platelet Count 289 140 - 400 K/uL [facility] MPV 11.1 8.5 - 12.[address] [facility] Seg Neut Absolute 6.0 1.8 - 8.0 K/uL [facility] Lymphocytes Absolute 1.2 0.8 - 4.1 K/uL [facility] Monocytes Absolute 0.7 0.0 - 1.0 K/uL [facility] [facility] Eosinophils Absolute 0.3 0.0 - 0.7 K/uL [facility] Basophil Absolute 0.0 0.0 - 0.2 K/uL [facility] Immature Granulocyte 0.01 0.00 - 0.06 [facility] Absolute K/uL CLINIC Neutrophils Abs. 6,000 /uL [facility] (Segs and Bands) [facility] Neutrophils Percent 73.1 % [facility] Lymphocytes Percent 14.0 % [facility] Monocytes Percent 8.3 % [facility] Immature Granulocyte 0.1 % [facility] Percent CLINIC Eosinophils Percent 4.1 % [facility] Basophil Percent 0.4 % [facility] Nucleated RBC 0 /[address] [facility] Specimen Blood - Blood specimen (specimen) Performing Organization Address [facility] Phone Number [address] [address] [phone] RENAL FUNCTION PANEL (01/03/2021 6:27 AM CDT) Pathologist Sig nature Glucose 134 (H) 70 - 100 mg/dL [facility] BUN 37 (H) 6 - 22 mg/dL [facility] Creatinine 0.92 0.60 - 1.10 [facility] mg/dL [facility] BUN/Creatinine Ratio 40.2 (H) 10.0 - 25.[address] [facility] Sodium 139 135 - 145 meq/L [facility] Potassium 3.1 (L) 3.5 - 5.3 meq/L [facility] Chloride 99 99 - 110 meq/L [facility] CO2 30 (H) 20 - 29 meq/L [facility] Anion Gap with K 13 6 - 20 meq/L [facility] Calcium 9.8 8.5 - 10.5 [facility] mg/dL [facility] Phosphorus 4.3 2.5 - 4.5 mg/dL [facility] Albumin 3.7 3.5 - 5.0 g/dL [facility] Corrected Calcium 10.0 8.5 - 10.5 [facility] mg/dL [facility] Age [address] [facility] eGFR Non- 59 (L) >=60 [facility] [place] mL/min/1.73m2 [facility] eGFR 71 >=60 [facility] mL/min/1.73m2 [facility] Specimen Blood - Blood specimen (specimen) Performing Organization Address [facility] Phone Number [address] [address] MAGNESIUM (01/03/2021 6:27 AM CDT) Pathologist Sig nature Magnesium 2.1 1.8 - 2.4 mg/dL [facility] Specimen Blood - Blood specimen (specimen) Performing Organization Address [facility] Phone Number [address] [address] [phone] GLUCOSE BY METER, POCT (01/03/2021 5:09 AM CDT) Pathologist Sig nature Glucose POC 139 (H) 70 - 99 mg/dL [facility] Specimen Blood - Blood specimen (specimen) Performing Organization Address [facility] Phone Number [address] [address] GLUCOSE BY METER, POCT (01/02/2021 8:51 PM CDT) Pathologist Sig nature Glucose POC 204 (H) 70 - 99 mg/dL [facility] Specimen Blood - Blood specimen (specimen) Performing Organization Address [facility] Phone Number [address] [address] GLUCOSE BY METER, POCT (01/02/2021 5:09 PM CDT) Pathologist Sig nature Glucose POC 132 (H) 70 - 99 mg/dL [facility] Specimen Blood - Blood specimen (specimen) Performing Organization Address [facility] Phone Number [address] [address] GLUCOSE BY METER, POCT (01/02/2021 11:23 AM CDT) Pathologist Sig nature Glucose POC 115 (H) 70 - 99 mg/dL [facility] Specimen Blood - Blood specimen (specimen) Performing Organization Address [facility] Phone Number [address] [address] [phone] LAB ONLY-COMPLETE BLOOD COUNT WITH DIFFERENTIAL (01/02/2021 6:00 AM CDT) Pathologist Sig nature WBC 8.5 4.0 - 11.0 K/uL [facility] RBC 3.88 3.80 - 5.30 [facility] M/uL [facility] Hemoglobin 13.2 11.5 - 15.8 [facility] g/dL [facility] Hematocrit 38.7 35.0 - 45.0 % [facility] MCV 99.7 (H) 80.0 - 98.[address] [facility] MCH 34.0 25.5 - 34.[address] [facility] MCHC 34.1 31.5 - 36.5 [facility] g/dL [facility] RDW-CV 16.6 (H) 11.5 - 15.5 % [facility] RDW-SD 48.6 35.5 - 50.[address] [facility] Platelet Count 272 140 - 400 K/uL [facility] MPV 11.1 8.5 - 12.[address] [facility] Seg Neut Absolute 6.1 1.8 - 8.0 K/uL [facility] Lymphocytes Absolute 1.4 0.8 - 4.1 K/uL [facility] Monocytes Absolute 0.6 0.0 - 1.0 K/uL [facility] Eosinophils Absolute 0.4 0.0 - 0.7 K/uL [facility] Basophil Absolute 0.0 0.0 - 0.2 K/uL [facility] Immature Granulocyte 0.02 0.00 - 0.06 [facility] Absolute K/uL [facility] Neutrophils Abs. 6,100 /uL [facility] (Segs and Bands) [facility] Neutrophils Percent 71.6 % [facility] Lymphocytes Percent 16.2 % [facility] Monocytes Percent 7.3 % [facility] Immature Granulocyte 0.2 % [facility] Percent CLINIC Eosinophils Percent 4.2 % [facility] Basophil Percent 0.5 % [facility] Nucleated RBC 0 /[address] [facility] Specimen Blood - Blood specimen (specimen) Performing Organization Address City/State/Zipcode Phone Number [address] [address] RENAL FUNCTION PANEL (01/02/2021 6:00 AM CDT) Pathologist Sig nature Glucose 144 (H) 70 - 100 mg/dL [facility] BUN 36 (H) 6 - 22 mg/dL [facility] Creatinine 0.93 0.60 - 1.10 [facility] mg/dL [facility] BUN/Creatinine Ratio 38.7 (H) 10.0 - 25.[address] [facility] Sodium 139 135 - 145 meq/L [facility] Potassium 3.7 3.5 - 5.3 meq/L [facility] Chloride 99 99 - 110 meq/L [facility] CO2 31 (H) 20 - 29 meq/L [facility] Anion Gap with K 13 6 - 20 meq/L [facility] Calcium 10.1 8.5 - 10.5 [facility] mg/dL CLINIC Phosphorus 4.2 2.5 - 4.5 mg/dL [facility] Albumin 3.7 3.5 - 5.0 g/dL [facility] Corrected Calcium 10.3 8.5 - 10.5 [facility] mg/dL [facility] Age [address] [facility] eGFR Non- 58 (L) >=60 [facility] [place] mL/min/1.73m2 [facility] eGFR 70 >=60 [facility] mL/min/1.73m2 [facility]INIC Specimen Blood - Blood specimen (specimen) Performing Organization Address [facility] Phone Number [address] [address] [phone] MAGNESIUM (01/02/2021 6:00 AM CDT) Pathologist Sig nature Magnesium 2.1 1.8 - 2.4 mg/dL [facility] Specimen Blood - Blood specimen (specimen) Performing Organization Address [facility] Phone Number [address] [address] GLUCOSE BY METER, POCT (01/02/2021 5:45 AM CDT) Pathologist Sig nature Glucose POC 138 (H) 70 - 99 mg/dL [facility] Specimen Blood - Blood specimen (specimen) Performing Organization Address [facility] Phone Number [address] [phone] GLUCOSE BY METER, POCT (01/01/2021 9:18 PM CDT) Pathologist Sig nature Glucose POC 200 (H) 70 - 99 mg/dL [facility] Specimen Blood - Blood specimen (specimen) Performing Organization Address [facility] Phone Number [address] [address] GLUCOSE BY METER, POCT (01/01/2021 5:00 PM CDT) Pathologist Sig nature Glucose POC 134 (H) 70 - 99 mg/dL [facility] Specimen Blood - Blood specimen (specimen) Performing Organization Address City/[facility]/Zipcode Phone Number [facility] [address] [place] [address] [phone] GLUCOSE BY METER, POCT (01/01/2021 11:06 AM CDT) Pathologist Sig [facility] Glucose POC 160 (H) 70 - 99 mg/dL [facility] Specimen Blood - Blood specimen (specimen) Performing Organization Address City/[facility] Phone Number [facility] [address] [place] [address] [phone] LAB ONLY-COMPLETE BLOOD COUNT WITH DIFFERENTIAL (01/01/2021 7:12 AM CDT) Pathologist [facility] WBC 8.4 4.0 - 11.0 K/uL [facility] RBC 4.04 3.80 - 5.30 [facility] M/uL CLINIC Hemoglobin 12.9 11.5 - 15.8 [facility] g/dL CLINIC Hematocrit 39.7 35.0 - 45.0 % [facility] MCV 98.3 (H) 80.0 - 98.[address] [facility] MCH 31.9 25.5 - 34.[address] [facility] MCHC 32.5 31.5 - 36.5 [facility] g/dL [facility] RDW-CV 14.8 11.5 - 15.5 % [facility] RDW-SD 48.8 35.5 - 50.0 [facility] Platelet Count 286 140 - 400 K/uL [facility] MPV 11.2 8.5 - 12.[address] [facility] Seg Neut Absolute 5.8 1.8 - 8.0 K/uL [facility] Lymphocytes Absolute 1.4 0.8 - 4.1 K/uL [facility] Monocytes Absolute 0.6 0.0 - 1.0 K/uL [facility] Eosinophils Absolute 0.5 0.0 - 0.7 K/uL [facility] Basophil Absolute 0.0 0.0 - 0.2 K/uL [facility] Immature Granulocyte 0.01 0.00 - 0.06 [facility] Absolute K/uL CLINIC Neutrophils Abs. 5,800 /uL [facility] (Segs and Bands) [facility] Neutrophils Percent 69.1 % [facility] Lymphocytes Percent 16.6 % [facility] Monocytes Percent 7.4 % [facility] Immature Granulocyte 0.1 % [facility] Percent CLINIC Eosinophils Percent 6.3 % [facility] Basophil Percent 0.5 % [facility] Nucleated RBC 0 /[address] [facility] Specimen Blood - Blood specimen (specimen) Performing Organization Address City/[facility] Phone Number [address] [address] RENAL FUNCTION PANEL (01/01/2021 7:12 AM CDT) Pathologist Sig [facility] Glucose 138 (H) 70 - 100 mg/dL [facility] BUN 29 (H) 6 - 22 mg/dL [facility] Creatinine 0.84 0.60 - 1.10 [facility] mg/dL [facility] BUN/Creatinine Ratio 34.5 (H) 10.0 - 25.[address] [facility] Sodium 139 135 - 145 meq/L [facility] Potassium 2.7 (L) 3.5 - 5.3 meq/L [facility] Chloride 98 (L) 99 - 110 meq/L [facility] CO2 31 (H) 20 - 29 meq/L [facility] Anion Gap with K 13 6 - 20 meq/L [facility] Calcium 10.2 8.5 - 10.5 [facility] mg/dL [facility] Phosphorus 3.3 2.5 - 4.5 mg/dL [facility] Albumin 3.7 3.5 - 5.0 g/dL [facility] Corrected Calcium 10.4 8.5 - 10.5 [facility] mg/dL [facility] Age [address] [facility] eGFR Non- 65 >=60 [facility] [place] mL/min/1.73m2 [facility] eGFR 79 >=60 [facility] mL/min/1.73m2 [facility] Specimen Blood - Blood specimen (specimen) Performing Organization Address [facility] Phone Number [address] [address] MAGNESIUM (01/01/2021 7:12 AM CDT) Pathologist Sig nature Magnesium 2.0 1.8 - 2.4 mg/dL [facility] Specimen Blood - Blood specimen (specimen) Performing Organization Address [facility] Phone Number [address] [address] GLUCOSE BY METER, POCT (01/01/2021 6:08 AM CDT) Pathologist Sig nature Glucose POC 158 (H) 70 - 99 mg/dL [facility] Specimen Blood - Blood specimen (specimen) Performing Organization Address [facility] Phone Number [address] [address] GLUCOSE BY METER, POCT (12/31/2020 9:13 PM CDT) Pathologist Sig nature Glucose POC 169 (H) 70 - 99 mg/dL [facility] Specimen Blood - Blood specimen (specimen) Performing Organization Address [facility] Phone Number [address] [address] GLUCOSE BY METER, POCT (12/31/2020 5:14 PM CDT) Pathologist Sig nature Glucose POC 161 (H) 70 - 99 mg/dL [facility] Specimen Blood - Blood specimen (specimen) Performing Organization Address [facility] Phone Number [address] [address] GLUCOSE BY METER, POCT (12/31/2020 11:49 AM CDT) Pathologist Sig nature Glucose POC 159 (H) 70 - 99 mg/dL [facility] Specimen Blood - Blood specimen (specimen) Performing Organization Address [facility] Phone Number [address] [address] GLUCOSE BY METER, POCT (12/31/2020 5:21 AM CDT) Pathologist Sig nature Glucose POC 147 (H) 70 - 99 mg/dL [facility] Specimen Blood - Blood specimen (specimen) Performing Organization Address [facility] Phone Number [address] [address] LAB ONLY-COMPLETE BLOOD COUNT WITH DIFFERENTIAL (12/31/2020 5:02 AM CDT) WBC 7.9 4.0 - 11.0 K/uL [facility] RBC 3.47 (L) 3.80 - 5.30 [facility] M/uL CLINIC Hemoglobin 12.7 11.5 - 15.8 [facility] g/dL [facility] Hematocrit 35.6 35.0 - 45.0 % [facility] MCV 102.6 (H) 80.0 - 98.[address] [facility] MCH 36.6 (H) 25.5 - 34.[address] [facility] MCHC 35.7 31.5 - 36.5 [facility] g/dL [facility] RDW-CV 17.2 (H) 11.5 - 15.5 % [facility] RDW-SD 51.1 (H) 35.5 - 50.[address] [facility] Platelet Count 286 140 - 400 K/uL [facility] MPV 11.2 8.5 - 12.[address] [facility] Seg Neut Absolute 5.4 1.8 - 8.0 K/uL [facility] Lymphocytes Absolute 1.4 0.8 - 4.1 K/uL [facility] Monocytes Absolute 0.7 0.0 - 1.0 K/uL [facility] Eosinophils Absolute 0.4 0.0 - 0.7 K/uL [facility] Basophil Absolute 0.1 0.0 - 0.2 K/uL [facility] Immature Granulocyte 0.02 0.00 - 0.06 [facility] Absolute K/uL CLINIC Neutrophils Abs. 5,400 /uL [facility] (Segs and Bands) [facility] Neutrophils Percent 68.1 % [facility] Lymphocytes Percent 17.6 % [facility] Monocytes Percent 8.2 % [facility] Immature Granulocyte 0.3 % [facility] Percent CLINIC Eosinophils Percent 5.2 % [facility] Basophil Percent 0.6 % [facility] Nucleated RBC 0 /[address] [facility] Specimen Blood - Blood specimen (specimen) Performing Organization Address City/State/Zipcode Phone Number [address] [address] RENAL FUNCTION PANEL (12/31/2020 5:02 AM CDT) Pathologist Sig nature Glucose 141 (H) 70 - 100 mg/dL [facility] BUN 24 (H) 6 - 22 mg/dL [facility] Creatinine 0.82 0.60 - 1.10 [facility] mg/dL [facility] BUN/Creatinine Ratio 29.3 (H) 10.0 - 25.[address] [facility] Sodium 141 135 - 145 meq/L [facility] Potassium 3.8 3.5 - 5.3 meq/L [facility] Chloride 99 99 - 110 meq/L [facility] CO2 32 (H) 20 - 29 meq/L [facility] Anion Gap with K 14 6 - 20 meq/L [facility] Calcium 10.1 8.5 - 10.5 [facility] mg/dL CLINIC Phosphorus 3.6 2.5 - 4.5 mg/dL [facility] Albumin 3.7 3.5 - 5.0 g/dL [facility] Corrected Calcium 10.3 8.5 - 10.5 [facility] mg/dL [facility] Age [address] [facility] eGFR Non- 67 >=60 [facility] [place] mL/min/1.73m2 [facility]INIC eGFR 81 >=60 [facility] mL/min/1.73m2 [facility] Specimen Blood - Blood specimen (specimen) Performing Organization Address [facility] Phone Number [address] [address] [phone] MAGNESIUM (12/31/2020 5:02 AM CDT) Pathologist Sig nature Magnesium 1.7 (L) 1.8 - 2.4 mg/dL [facility] Specimen Blood - Blood specimen (specimen) Performing Organization Address [facility] Phone Number [address] [address] [phone] GLUCOSE BY METER, POCT (12/30/2020 8:45 PM CDT) Pathologist Sig nature Glucose POC 157 (H) 70 - 99 mg/dL [facility] Specimen Blood - Blood specimen (specimen) Performing Organization Address City/State/Zipcode Phone Number [address] [address] [phone] GLUCOSE BY METER, POCT (12/30/2020 5:18 PM CDT) Pathologist Sig nature Glucose POC 112 (H) 70 - 99 mg/dL [facility] Specimen Blood - Blood specimen (specimen) Performing Organization Address [facility] Phone Number [address] [address] GLUCOSE BY METER, POCT (12/30/2020 11:48 AM CDT) Pathologist Sig nature Glucose POC 144 (H) 70 - 99 mg/dL [facility] Specimen Blood - Blood specimen (specimen) Performing Organization Address [facility] Phone Number [address] [address] LAB ONLY-COMPLETE BLOOD COUNT WITH DIFFERENTIAL (12/30/2020 6:30 AM CDT) WBC 8.9 4.0 - 11.0 K/uL [facility] RBC 3.45 (L) 3.80 - 5.30 [facility] M/uL CLINIC Hemoglobin 12.4 11.5 - 15.8 [facility] g/dL [facility] Hematocrit 35.3 35.0 - 45.0 % [facility] MCV 102.3 (H) 80.0 - 98.[address] [facility] MCH 35.9 (H) 25.5 - 34.[address] [facility] MCHC 35.1 31.5 - 36.5 [facility] g/dL [facility] RDW-CV 18.0 (H) 11.5 - 15.5 % [facility] RDW-SD 50.2 (H) 35.5 - 50.[address] [facility] Platelet Count 262 140 - 400 K/uL [facility] MPV 10.9 8.5 - 12.[address] [facility] Seg Neut Absolute 6.6 1.8 - 8.0 K/uL [facility] Lymphocytes Absolute 1.2 0.8 - 4.1 K/uL [facility] Monocytes Absolute 0.7 0.0 - 1.0 K/uL [facility] Eosinophils Absolute 0.4 0.0 - 0.7 K/uL [facility] Basophil Absolute 0.0 0.0 - 0.2 K/uL [facility] Immature Granulocyte 0.02 0.00 - 0.06 [facility] Absolute K/uL [facility] Neutrophils Abs. 6,600 /uL [facility] (Segs and Bands) [facility] Neutrophils Percent 73.5 % [facility] Lymphocytes Percent 13.7 % [facility] Monocytes Percent 8.0 % [facility] Immature Granulocyte 0.2 % [facility] Percent CLINIC Eosinophils Percent 4.2 % [facility] Basophil Percent 0.4 % [facility] Nucleated RBC 0 /[address] [facility] Specimen Blood - Blood specimen (specimen) Performing Organization Address City/State/Zipcode Phone Number [facility] [address] [place] [address] RENAL FUNCTION PANEL (12/30/2020 6:30 AM CDT) Pathologist Sig nature Glucose 140 (H) 70 - 100 mg/dL [facility] BUN 22 6 - 22 mg/dL [facility] Creatinine 0.81 0.60 - 1.10 [facility] mg/dL [facility] BUN/Creatinine Ratio 27.2 (H) 10.0 - 25.[address] [facility] Sodium 135 135 - 145 meq/L [facility] Potassium 3.1 (L) 3.5 - 5.3 meq/L [facility] Chloride 97 (L) 99 - 110 meq/L [facility] CO2 30 (H) 20 - 29 meq/L [facility] Anion Gap with K 11 6 - 20 meq/L [facility] Calcium 9.8 8.5 - 10.5 [facility] mg/dL [facility] Phosphorus 3.8 2.5 - 4.5 mg/dL [facility] [facility] Albumin 3.5 3.5 - 5.0 g/dL [facility] Corrected Calcium 10.2 8.5 - 10.5 [facility] mg/dL [facility] Age [address] [facility] eGFR Non- 68 >=60 [facility] [place] mL/min/1.73m2 [facility] eGFR 82 >=60 [facility] mL/min/1.73m2 [facility] Specimen Blood - Blood specimen (specimen) Performing Organization Address [facility] Phone Number [address] [address] MAGNESIUM (12/30/2020 6:30 AM CDT) Pathologist Sig nature Magnesium 1.8 1.8 - 2.4 mg/dL [facility] Specimen Blood - Blood specimen (specimen) Performing Organization Address [facility] Number [address] [address] GLUCOSE BY METER, POCT (12/30/2020 5:13 AM CDT) Pathologist Sig nature Glucose POC 130 (H) 70 - 99 mg/dL [facility] Specimen Blood - Blood specimen (specimen) Performing Organization Address [facility] Number [address] [address] GLUCOSE BY METER, POCT (12/29/2020 8:57 PM CDT) Pathologist Sig nature Glucose POC 171 (H) 70 - 99 mg/dL [facility] Specimen Blood - Blood specimen (specimen) Performing Organization Address [facility] Number [address] [address] GLUCOSE BY METER, POCT (12/29/2020 5:20 PM CDT) Pathologist Sig nature Glucose POC 150 (H) 70 - 99 mg/dL [facility] Specimen Blood - Blood specimen (specimen) Performing Organization Address [facility] Number [address] [address] GLUCOSE BY METER, POCT (12/29/2020 11:17 AM CDT) Pathologist Sig nature Glucose POC 145 (H) 70 - 99 mg/dL [facility] Specimen Blood - Blood specimen (specimen) Performing Organization Address [facility] Phone Number [address] [address] [phone] LAB ONLY-COMPLETE BLOOD COUNT WITH DIFFERENTIAL (12/29/2020 6:56 AM CDT) Pathologist Sig nature WBC 6.9 4.0 - 11.0 K/uL [facility] RBC 3.88 3.80 - 5.30 [facility] M/uL CLINIC Hemoglobin 11.8 11.5 - 15.8 [facility] g/dL [facility] Hematocrit 37.9 35.0 - 45.0 % [facility] MCV 97.7 80.0 - 98.[address] [facility] MCH 30.4 25.5 - 34.[address] [facility] MCHC 31.1 (L) 31.5 - 36.5 [facility] g/dL [facility] RDW-CV 14.5 11.5 - 15.5 % [facility] RDW-SD 50.6 (H) 35.5 - 50.[address] [facility] Platelet Count 273 140 - 400 K/uL [facility] MPV 10.9 8.5 - 12.[address] [facility] Seg Neut Absolute 4.8 1.8 - 8.0 K/uL [facility] Lymphocytes Absolute 1.1 0.8 - 4.1 K/uL [facility] Monocytes Absolute 0.6 0.0 - 1.0 K/uL [facility] Eosinophils Absolute 0.4 0.0 - 0.7 K/uL [facility] Basophil Absolute 0.1 0.0 - 0.2 K/uL [facility] Immature Granulocyte 0.01 0.00 - 0.06 [facility] Absolute K/uL CLINIC Neutrophils Abs. 4,800 /uL [facility] (Segs and Bands) [facility] Neutrophils Percent 69.7 % [facility] Lymphocytes Percent 15.7 % [facility] Monocytes Percent 8.2 % [facility] Immature Granulocyte 0.1 % [facility] Percent CLINIC Eosinophils Percent 5.6 % [facility] Basophil Percent 0.7 % [facility] Nucleated RBC 0 /[address] [facility] Specimen Blood - Blood specimen (specimen) Performing Organization Address City/State/Zipcode Phone Number [address] [address] RENAL FUNCTION PANEL (12/29/2020 6:56 AM CDT) Pathologist Sig [facility] Glucose 125 (H) 70 - 100 mg/dL [facility] BUN 21 6 - 22 mg/dL [facility] Creatinine 0.75 0.60 - 1.10 [facility] mg/dL [facility] BUN/Creatinine Ratio 28.0 (H) 10.0 - 25.[address] [facility] Sodium 141 135 - 145 meq/L [facility] Potassium 3.5 3.5 - 5.3 meq/L [facility] Chloride 103 99 - 110 meq/L [facility] CO2 30 (H) 20 - 29 meq/L [facility] Anion Gap with K 12 6 - 20 meq/L [facility] Calcium 9.5 8.5 - 10.5 [facility] mg/dL [facility] Phosphorus 3.6 2.5 - 4.5 mg/dL [facility] Albumin 3.4 (L) 3.5 - 5.0 g/dL [facility] Corrected Calcium 10.0 8.5 - 10.5 [facility] mg/dL [facility] Age [address] [facility] eGFR Non- 74 >=60 [facility] [place] mL/min/1.73m2 [facility] eGFR 90 >=60 [facility] mL/min/1.73m2 [facility] Specimen Blood - Blood specimen (specimen) Performing Organization Address [facility] Phone Number [address] [address] MAGNESIUM (12/29/2020 6:56 AM CDT) Pathologist Sig [facility] Magnesium 1.8 1.8 - 2.4 mg/dL [facility] Specimen Blood - Blood specimen (specimen) Performing Organization Address [facility] Phone Number [address] [address] GLUCOSE BY METER, POCT (12/29/2020 5:12 AM CDT) Pathologist Sig [facility] Glucose POC 132 (H) 70 - 99 mg/dL [facility] Specimen Blood - Blood specimen (specimen) Performing Organization Address [facility] Phone Number [address] [address] [phone] GLUCOSE BY METER, POCT (12/28/2020 9:13 PM CDT) Pathologist Sig nature Glucose POC 123 (H) 70 - 99 mg/dL [facility] Specimen Blood - Blood specimen (specimen) Performing Organization Address [facility] Phone Number [address] [address] [phone] GLUCOSE BY METER, POCT (12/28/2020 5:23 PM CDT) Pathologist Sig nature Glucose POC 88 70 - 99 mg/dL [facility] Specimen Blood - Blood specimen (specimen) Performing Organization Address [facility] Phone Number [address] [address] GLUCOSE BY METER, POCT (12/28/2020 11:42 AM CDT) Pathologist Sig nature Glucose POC 143 (H) 70 - 99 mg/dL [facility] Specimen Blood - Blood specimen (specimen) Performing Organization Address [facility] Phone Number [address] [address] LAB ONLY-COMPLETE BLOOD COUNT WITH DIFFERENTIAL (12/28/2020 5:47 AM CDT) Pathologist Sig [facility] WBC 7.3 4.0 - 11.0 K/uL [facility] RBC 3.46 (L) 3.80 - 5.30 [facility] M/uL CLINIC Hemoglobin 11.2 (L) 11.5 - 15.8 [facility] g/dL [facility] Hematocrit 34.4 (L) 35.0 - 45.0 % [facility] MCV 99.4 (H) 80.0 - 98.[address] [facility] MCH 32.4 25.5 - 34.[address] [facility] MCHC 32.6 31.5 - 36.5 [facility] g/dL [facility] RDW-CV 14.8 11.5 - 15.5 % [facility] RDW-SD 50.2 (H) 35.5 - 50.[address] [facility] Platelet Count 283 140 - 400 K/uL [facility] MPV 10.6 8.5 - 12.[address] [facility] Seg Neut Absolute 4.3 1.8 - 8.0 K/uL [facility] Lymphocytes Absolute 1.7 0.8 - 4.1 K/uL [facility] Monocytes Absolute 0.7 0.0 - 1.0 K/uL [facility] Eosinophils Absolute 0.5 0.0 - 0.7 K/uL [facility] Basophil Absolute 0.1 0.0 - 0.2 K/uL [facility] Immature Granulocyte 0.01 0.00 - 0.06 [facility] Absolute K/uL CLINIC Neutrophils Abs. 4,300 /uL [facility] (Segs and Bands) [facility] Neutrophils Percent 58.9 % [facility] Lymphocytes Percent 23.0 % [facility] Monocytes Percent 9.5 % [facility] Immature Granulocyte 0.1 % [facility] Percent CLINIC Eosinophils Percent 7.3 % [facility] Basophil Percent 1.2 % [facility] Nucleated RBC 0 /[address] [facility] Specimen Blood - Blood specimen (specimen) Performing Organization Address City/State/Zipcode Phone Number [address] [address] [phone] RENAL FUNCTION PANEL (12/28/2020 5:47 AM CDT) Pathologist Sig nature Glucose 121 (H) 70 - 100 mg/dL [facility] BUN 21 6 - 22 mg/dL [facility] Creatinine 0.72 0.60 - 1.10 [facility] mg/dL [facility] BUN/Creatinine Ratio 29.2 (H) 10.0 - 25.[address] [facility] Sodium 140 135 - 145 meq/L [facility] Potassium 3.9 3.5 - 5.3 meq/L [facility] Chloride 108 99 - 110 meq/L [facility] CO2 27 20 - 29 meq/L [facility] Anion Gap with K 9 6 - 20 meq/L [facility] Calcium 9.3 8.5 - 10.5 [facility] mg/dL [facility] Phosphorus 3.8 2.5 - 4.5 mg/dL [facility] Albumin 3.3 (L) 3.5 - 5.0 g/dL [facility] Corrected Calcium 9.9 8.5 - 10.5 [facility] mg/dL CLINIC Age [address] [facility] eGFR Non- 78 >=60 [facility] [place] mL/min/1.73m2 [facility]INIC eGFR >90 >=60 [facility] mL/min/1.73m2 [facility] Specimen Blood - Blood specimen (specimen) Performing Organization Address [facility] Phone Number [address] [address] MAGNESIUM (12/28/2020 5:47 AM CDT) Pathologist Sig nature Magnesium 2.0 1.8 - 2.4 mg/dL [facility] Specimen Blood - Blood specimen (specimen) Performing Organization Address [facility] Number [address] [address] [phone] GLUCOSE BY METER, POCT (12/28/2020 5:23 AM CDT) Pathologist Sig nature Glucose POC 121 (H) 70 - 99 mg/dL [facility] Specimen Blood - Blood specimen (specimen) Performing Organization Address [facility] Phone Number [address] [address] GLUCOSE BY METER, POCT (12/27/2020 8:36 PM CDT) Pathologist Sig nature Glucose POC 153 (H) 70 - 99 mg/dL [facility] Specimen Blood - Blood specimen (specimen) Performing Organization Address [facility] Phone Number [address] [address] [phone] GLUCOSE BY METER, POCT (12/27/2020 5:25 PM CDT) Pathologist Sig nature Glucose POC 137 (H) 70 - 99 mg/dL [facility] Specimen Blood - Blood specimen (specimen) Performing Organization Address [facility] Phone Number [address] [address] [phone] GLUCOSE BY METER, POCT (12/27/2020 11:22 AM CDT) Pathologist Sig nature Glucose POC 140 (H) 70 - 99 mg/dL [facility] Specimen Blood - Blood specimen (specimen) Performing Organization Address City/State/Zipcode Phone Number [facility] [address] [place] [address] LAB ONLY-COMPLETE BLOOD COUNT WITH DIFFERENTIAL (12/27/2020 7:38 AM CDT) Pathologist [facility] nature WBC 6.4 4.0 - 11.0 K/uL [facility] RBC 3.55 (L) 3.80 - 5.30 [facility] M/uL CLINIC Hemoglobin 11.3 (L) 11.5 - 15.8 [facility] g/dL [facility] Hematocrit 35.1 35.0 - 45.0 % [facility] MCV 98.9 (H) 80.0 - 98.[address] [facility] MCH 31.8 25.5 - 34.[address] [facility] MCHC 32.2 31.5 - 36.5 [facility] g/dL [facility] RDW-CV 15.6 (H) 11.5 - 15.5 % [facility] RDW-SD 49.8 35.5 - 50.[address] [facility] Platelet Count 299 140 - 400 K/uL [facility] MPV 10.7 8.5 - 12.[address] [facility] Seg Neut Absolute 4.1 1.8 - 8.0 K/uL [facility] Lymphocytes Absolute 1.3 0.8 - 4.1 K/uL [facility] Monocytes Absolute 0.6 0.0 - 1.0 K/uL [facility] Eosinophils Absolute 0.3 0.0 - 0.7 K/uL [facility] Basophil Absolute 0.1 0.0 - 0.2 K/uL [facility] Immature Granulocyte 0.02 0.00 - 0.06 [facility] Absolute K/uL CLINIC Neutrophils Abs. 4,100 /uL [facility] (Segs and Bands) [facility] Neutrophils Percent 64.0 % [facility] Lymphocytes Percent 20.9 % [facility] Monocytes Percent 8.8 % [facility] Immature Granulocyte 0.3 % [facility] Percent CLINIC Eosinophils Percent 5.2 % [facility] Basophil Percent 0.8 % [facility] Nucleated RBC 0 /[address] [facility] Specimen Blood - Blood specimen (specimen) Performing Organization Address [facility] Phone Number [address] [address] [phone] RENAL FUNCTION PANEL (12/27/2020 7:38 AM CDT) Pathologist Sig nature Glucose 96 70 - 100 mg/dL [facility] BUN 23 (H) 6 - 22 mg/dL [facility] Creatinine 0.83 0.60 - 1.10 [facility] mg/dL [facility] BUN/Creatinine Ratio 27.7 (H) 10.0 - 25.[address] [facility] Sodium 141 135 - 145 meq/L [facility] Potassium 3.7 3.5 - 5.3 meq/L [facility] Chloride 106 99 - 110 meq/L [facility] CO2 26 20 - 29 meq/L [facility] Anion Gap with K 13 6 - 20 meq/L [facility] Calcium 9.2 8.5 - 10.5 [facility] mg/dL CLINIC Phosphorus 3.6 2.5 - 4.5 mg/dL [facility] Albumin 3.4 (L) 3.5 - 5.0 g/dL [facility] Corrected Calcium 9.7 8.5 - 10.5 [facility] mg/dL [facility] Age [address] [facility] eGFR Non- 66 >=60 [facility] [place] mL/min/1.73m2 [facility] eGFR 80 >=60 [facility] mL/min/1.73m2 CLINIC Specimen Blood - Blood specimen (specimen) Performing Organization Address [facility] Phone Number [address] [address] MAGNESIUM (12/27/2020 7:38 AM CDT) Pathologist Sig nature Magnesium 1.8 1.8 - 2.4 mg/dL [facility] Specimen Blood - Blood specimen (specimen) Performing Organization Address [facility] Phone Number [address] [address] GLUCOSE BY METER, POCT (12/27/2020 5:50 AM CDT) Pathologist Sig nature Glucose POC 109 (H) 70 - 99 mg/dL [facility] Specimen Blood - Blood specimen (specimen) Performing Organization Address City/[facility]/Zipcode Phone Number [address] [address] GLUCOSE BY METER, POCT (12/26/2020 9:16 PM CDT) Pathologist Sig nature Glucose POC 122 (H) 70 - 99 mg/dL [facility] Specimen Blood - Blood specimen (specimen) Performing Organization Address City/[facility]/Zipcode Phone Number [address] [address] GLUCOSE BY METER, POCT (12/26/2020 5:43 PM CDT) Pathologist Sig nature Glucose POC 86 70 - 99 mg/dL [facility] Specimen Blood - Blood specimen (specimen) Performing Organization Address [facility] Phone Number [address] [address] [phone] TISSUE EXAM (12/26/2020 4:56 PM CDT) FINAL DIAGNOSIS A. BONE, SACRAL MASS, NEEDLE CORE BIOPSY: DAVID WEAVER Electronically - Metastatic adenocarcinoma, favor gynecologic primary , see comment. [facility] signed by SELENE Dumont DO o n 12/31/2020 at 10: 53 AM DIAGNOSIS COMMENT Properly controlled PAX8, es trogen receptor, and progesterone receptor are positive, and CK7 is focally positive. Stains for GATA3, CDX2, CK20, and P63 are negative, making a breast, colon, or squamous SHAFER SUREKHA cell primary less likely. Th is is favored to represent a gynecologic metastasis, given the patient's recent endometrioid adenocarcinoma. Clinical correlation is recommended. [facility] Intradepartmental consultation was obtained. SL/FSH/AP/HP GROSS DESCRIPTION DAVID Aguero Received in formalin labe led "SACRAL MASS BIOPSY" is a 1.4 x 0.8 x 0.1 cm aggregate of mcrae soft tissue fragments admixed with blood clot. [facility] Specimen submitted entirely as follows (1 block): A1 Entire specimen, bagged MS:sl MICROSCOPIC Microscopic examination DAVID WEAVER DESCRIPTION performed. [facility] Clinical Multiple cancers. Need DAVID WEAVER Information type of cancer in the [facility] sacrum. LABORATORY CASE REPORT Surgical Pathology Report Case: [id number] SA LETICIA WEAVER Authorizing Provider: Trina Ni MD Collected: 12/26/[address] [place] [address] Ordering Location: [facility] 7S Received: 12/26/2020 1708 LABORATORY Pathologist: Asia Dumont DO Specimen: Bone, SACRAL MASS BIOPSY EMBEDDED IMAGES [facility] Specimen Tissue - Specimen from bone (specimen) Performing Organization Address City/State/Zipcode Phone Number [facility] [address] [place] [address] [address] IR BIOPSY OR ASPIRATION (12/26/2020 4:56 PM CDT) Specimen Narrative Performed At [facility] Patient Name: TALI FINK Date of : 1940 Procedure: IR BIOPSY OR ASPIRATION Date of Service: 12/26/2020 Procedure: CT-guided biopsy Primary furnace converter: Marco Bustillo MD Preoperative diagnosis: Sacral mass Postoperative diagnosis: Same Operations: Operation 1. CT-guided biopsy of sacra l lesion. Indications: Patient with lesion in the sacrum concer kaity for metastatic disease. Medications: See chart. Complications: None immediate. Procedure: The attending physician was present for the entire pro cedure. Written informed consent was obtained in a preprocedure confer ence with the patient. The patient was prepped and draped in the usual manner . The patient was positioned in the scanner in the prone position. Ini tial scans were obtained to confirm positioning. The skin was then n umbed using 1% lidocaine. A small incision was made. The guide ne edle was advanced under CT guidance to the margin of the lesion. Using a 18-gauge biopsy gun core specimens were obtained. The specimens were placed in formalin and sent to pathology. The needles were the n removed and a sterile dressing was applied. Findings: Successful biopsy of sacral lesion. Multiple core spec imens were obtained. Following the procedure ther e is no evidence of hematoma . Impression: 1. Successful biopsy of sacral lesion. Finalized by: Marco Bustillo on 12/31/2020 12:41 PM CDT Patient/Procedure Information: [facility] MRN/MARVA: [id number] Order Number: [id number] Accession Number: [id number] Ordering Provider: TRINA MIRANDA Authorizing Provider: TRINA MIRANDA Procedure Note Interface, Radiantres - 12/31/2020 12:43 PM CDT Patient Name: TALI FINK Date of : 1940 Procedure: IR BIOPSY OR ASPIRATION Date of Service: 12/26/2020 Procedure: CT-guided biopsy Primary furnace converter: Marco Bustillo MD Preoperative diagnosis: Sacral mass Postoperative diagnosis: Same Operations: Operation 1. CT-guided biopsy of sacral lesion. Indications: Patient with lesion in the sacrum concer kaity for metastatic disease. Medications: See chart. Complications: None immediate. Procedure: The attending physician was present for the entire procedure. Written informed consent was obtained in a preprocedure conference with the patient. The patient was prepped and draped in th e usual manner. The patient was positioned in the scanner in the prone position. Initial scans were obtained to confirm positioning. The skin was then numbed using 1% lidocaine. A small incision was made. The guide needle was advanced under CT guidance to the margin of the lesion. Using a 18-gauge biopsy gun core specimens were obtained. The specimens were placed in formalin and sent to pathology. The needles were then removed and a sterile dressing was applied. Findings: Successful biopsy of sacral lesion. Mult iple core specimens were obtained. Following the procedure there is no evidence of hematoma . Impression: 1. Successful biopsy of sacral lesion. Finalized by: Marco Bustillo on 12/31/2020 12:41 PM CDT Patient/Procedure Information: [facility] MRN/MARVA: [id number] Order Number: [id number] Accession Number: [id number] Ordering Provider: TRINA MIRANDA Authorizing Provider: TRINA MIRANDA Performing Organization Address City/State/Zipcode Phone Number [id number] PROTIME/INR (12/26/2020 2:25 PM CDT) Pathologist Sig lisette Protime 13.3 12.0 - 14.[address] [facility] INR 1.1 (L) 2.0 - 3.[address] [facility] Specimen Blood - Blood specimen (specimen) Narrative Performed At Normal INR reference range (patients not on oral [facility] anticoagulants) 0.9-1.1. INR Standard Intensity = (2.0 - 3.0) INR Higher Intensity = (2.5 - 3.5) Performing Organization Address City/State/Zipcode Phone Number [facility] [address] [place] [address] GLUCOSE BY METER, POCT (12/26/2020 12:35 PM CDT) Pathologist Ferdinand knox Glucose POC 90 70 - 99 mg/dL [facility] Specimen Blood - Blood specimen (specimen) Performing Organization Address [facility]/Zipcode Phone Number [facility] [address] [place] [address] [phone] CT ABDOMEN PELVIS WITH CONTRAST (12/26/2020 12:08 PM CDT) Specimen Narrative Performed At [facility] Patient Name: TALI FINK Date of : 1940 Procedure: CT ABDOMEN PELVIS WITH CONTR AST Date of Service: 12/26/2020 EXAM: CT ABDOMEN PELVIS WITH CONTRAST, C T CHEST WITH CONTRAST INDICATION:Cancer of unknown primary, st aging, Metastatic cancer. COMPARISON(S): MRI from 12/25/2020. TECHNIQUE: Axial ct imaging was performed through the chest, abdomen and pelvis following IV contrast. Sagittal and coronal ref ormats were performed. FINDINGS: CHEST: Postsurgical changes with axillary clips and clips francisco j ng the posterior left breast. Cardiac size is stable. No pericardial fl uid. No pleural fluid. No evidence for any enlarged thoracic adenopath y. Tracheobronchial tree is patent. Overall heterogeneous appearance of the thyroid gland with multiple hypodense nodules on the l eft. Relative atrophy of the right thyroid lobe relati ve to the left. Evaluation under lung windows reveals some scattered s carring. There are some mild basilar atelectasis. Lungs are otherwise roby ar. No evidence for any suspicious nodules or masses. Stable 4 mm righ t upper lobe posterior located nodule image 15 severe degenerative change of the left glenohumeral joint. Healing anterior lat eral right fifth rib fracture. ABDOMEN: Liver stable appearance including a hypodense/cystic l esion within the right hepatic lobe, image 121. Gallbladder surgically absent. Slight intrahepatic ductal prominence stable. Spleen, pancrea s and adrenal glands are within normal limits. Kidneys enhance symme trically. Bilateral renal cysts noted. No hydronephrotic changes or perinephric fluid. No dilated small bowel loops. Small hiatal willie ia. No evidence for any enlarged abdominal or retroperitoneal lymph no gloria. Fat-containing periumbilical hernia. PELVIS: Urinary bladder is unremarkable. Uterus is surgically absent. There is moderate presacral stranding noted. No evidence for an y abnormal pelvic adenopathy. No colonic wall thickening. Recent imaging of the lumbar spine has identified dest ructive osseous changes involving S1 and S2 with posterior soft tissue . This is best appreciated sagittal imaging on today's exam with dest ructive changes. There is a fracture through the superior endplate of S 1 which appears new compared to the recent CT. Fracture through the le ft sacral ala is also new from the recent CT but was present on the MRI . No additional suspicious or destructive osseous change s confirmed on today's exam. IMPRESSION: 1. Redemonstrated destructive osseous changes involvin g S1 and S2 with some soft tissue extending posteriorly into the spinal canal. New fracture line is evident through the superior aspect o f S1 extending to th and there is a redemonstrated left-si ded sacral ala fracture. 2. No evidence for any additional confirmed osseous ab normality or destructive change. Marked degenerative changes throug hout the thoracic and lumbar spine with heterogeneous osse ous appearance. 3. Overall stable CT examination of the chest includin g postsurgical changes from left-sided lumpectomy with multiple surgi neeraj clips including axillary clips. 4. Stable right upper lobe pulmonary nodule. Scattered scarring noted. No additional/enlarging nodules or evide nce for any adenopathy. 5. Stable CT examination of the abdomen/pelvis otherwi se. Note that the uterus is surgically absent. Finalized by: Chase Hidalgo MD on 021 4:44 PM CDT Patient/Procedure Information: [facility] MRN/MARVA: [id number] Order Number: [id number] Accession Number: [id number] Ordering Provider: TRINA MIRANDA Authorizing Provider: TRINA MIRANDA Procedure Note Interface, Radiantres - 12/26/2020 4:46 PM CDT Patient Name: TALI FINK Date of : 1940 Procedure: CT ABDOMEN PELVIS WITH CONTR AST Date of Service: 12/26/2020 EXAM: CT ABDOMEN PELVIS WITH CONTRAST, C T CHEST WITH CONTRAST INDICATION:Cancer of unknown primary, st aging, Metastatic cancer. COMPARISON(S): MRI from 12/25/2020. TECHNIQUE: Axial ct imaging was performe d through the chest, abdomen and pelvis following IV contrast. Sagittal and coronal reformats were performed. FINDINGS: CHEST: Postsurgical changes with axillary clips and clips along the posterior left breast. Cardiac size is stable. No pericardial fluid. No pleural fluid. No evidence for any enlarged thoracic adenopathy. Tracheobronchial tree is patent. Overall heterogeneous ap pearance of the thyroid gland with multiple hypodense nodules on the left. Relative atrophy of the right thyroid lobe relative to the left. Evaluation under lung windows reveals so me scattered scarring. There are some mild basilar atelectasis. Lungs are otherwise clear. No evidence for any suspicious nodules or masses. Stable 4 mm right upper lobe posterior located nodule image 15 severe degenerat bryan change of the left glenohumeral joint. Healing anterior lateral right fifth rib fracture. ABDOMEN: Liver stable appearance including a hypo dense/cystic lesion within the right hepatic lobe, image 121. Gallbladder surgically absent. Slight intrahepatic ductal prominence stable. Spleen, pancreas and adrenal glands are within normal limits. Kidneys enhanc e symmetrically. Bilateral renal cysts noted. No hydronephrotic changes or perinephric fluid. No dilated small bowel loops. Small hiatal hernia. No evidence for any enlarged abdominal or retroperitoneal lymph nodes . Fat-containing periumbilical hernia. PELVIS: Urinary bladder is unremarkable. Uterus is surgically absent. There is moderate presacral stranding noted. No evidence for any abnormal pelvic adenopathy. No colonic wall thickening. Recent imaging of the lumbar spine has i dentified destructive osseous changes involving S1 and S2 with posterior soft tissue. This is best appreciated sagittal imaging on today's exam with destructive changes. There is a fracture through the superior endplate of S1 which appears new compared to the recent CT. Fracture through the left sacral ala is also new from the recent CT but was present on the MRI. No additional suspicious or destructive osseous change s confirmed on today's exam. IMPRESSION: 1. Redemonstrated destructive osseous ch anges involving S1 and S2 with some soft tissue extending posteriorly into the spinal canal. New fracture line is evident through the superior aspect of S1 extending to th and there is a redemonstrated left-sided sac ral ala fracture. 2. No evidence for any additional confir med osseous abnormality or destructive change. Marked degenerative changes throughout the thoracic and lumbar spine with heterogeneous osseous appearance. 3. Overall stable CT examination of the chest including postsurgical changes from left-sided lumpectomy with multiple surgical clips including axillary clips. 4. Stable right upper lobe pulmonary nod ule. Scattered scarring noted. No additional/enlarging nodules or evidence for any adenopathy. 5. Stable CT examination of the abdomen/ pelvis otherwise. Note that the uterus is surgically absent. Finalized by: Chase Hidalgo MD on 021 4:44 PM CDT Patient/Procedure Information: [facility] MRN/MARVA: [id number] Order Number: [id number] Accession Number: [id number] Ordering Provider: TRINA MIRANDA Authorizing Provider: TRINA MIRANDA Performing Organization Address City/State/Zipcode Phone Number [id number] CT CHEST WITH CONTRAST (12/26/2020 12:06 PM CDT) Specimen Narrative Performed At [facility] Patient Name: TALI FINK Date of : 1940 Procedure: CT CHEST WITH CONTRAST Date of Service: 12/26/2020 EXAM: CT ABDOMEN PELVIS WITH CONTRAST, C T CHEST WITH CONTRAST INDICATION:Cancer of unknown primary, st aging, Metastatic cancer. COMPARISON(S): MRI from 12/25/2020. TECHNIQUE: Axial ct imaging was performed through the chest, abdomen and pelvis following IV contrast. Sagittal and coronal ref ormats were performed. FINDINGS: CHEST: Postsurgical changes with axillary clips and clips francisco j ng the posterior left breast. Cardiac size is stable. No pericardial fl uid. No pleural fluid. No evidence for any enlarged thoracic adenopath y. Tracheobronchial tree is patent. Overall heterogeneous appearance of the thyroid gland with multiple hypodense nodules on the l eft. Relative atrophy of the right thyroid lobe relati ve to the left. Evaluation under lung windows reveals some scattered s carring. There are some mild basilar atelectasis. Lungs are otherwise roby ar. No evidence for any suspicious nodules or masses. Stable 4 mm righ t upper lobe posterior located nodule image 15 severe degenerative change of the left glenohumeral joint. Healing anterior lat eral right fifth rib fracture. ABDOMEN: Liver stable appearance including a hypodense/cystic l esion within the right hepatic lobe, image 121. Gallbladder surgically absent. Slight intrahepatic ductal prominence stable. Spleen, pancrea s and adrenal glands are within normal limits. Kidneys enhance symme trically. Bilateral renal cysts noted. No hydronephrotic changes or perinephric fluid. No dilated small bowel loops. Small hiatal willie ia. No evidence for any enlarged abdominal or retroperitoneal lymph no gloria. Fat-containing periumbilical hernia. PELVIS: Urinary bladder is unremarkable. Uterus is surgically absent. There is moderate presacral stranding noted. No evidence for an y abnormal pelvic adenopathy. No colonic wall thickening. Recent imaging of the lumbar spine has identified dest ructive osseous changes involving S1 and S2 with posterior soft tissue . This is best appreciated sagittal imaging on today's exam with dest ructive changes. There is a fracture through the superior endplate of S 1 which appears new compared to the recent CT. Fracture through the le ft sacral ala is also new from the recent CT but was present on the MRI . No additional suspicious or destructive osseous change s confirmed on today's exam. IMPRESSION: 1. Redemonstrated destructive osseous changes involvin g S1 and S2 with some soft tissue extending posteriorly into the spinal canal. New fracture line is evident through the superior aspect o f S1 extending to th and there is a redemonstrated left-si ded sacral ala fracture. 2. No evidence for any additional confirmed osseous ab normality or destructive change. Marked degenerative changes throug hout the thoracic and lumbar spine with heterogeneous osse ous appearance. 3. Overall stable CT examination of the chest includin g postsurgical changes from left-sided lumpectomy with multiple surgi neeraj clips including axillary clips. 4. Stable right upper lobe pulmonary nodule. Scattered scarring noted. No additional/enlarging nodules or evide nce for any adenopathy. 5. Stable CT examination of the abdomen/pelvis otherwi se. Note that the uterus is surgically absent. Finalized by: Chase Hidalgo MD on 021 4:44 PM CDT Patient/Procedure Information: [facility] MRN/MARVA: [id number] Order Number: [id number] Accession Number: [id number] Ordering Provider: TRINA MIRANDA Authorizing Provider: TRINA MIRANDA Procedure Note Interface, Radiantres - 12/26/2020 4:46 PM CDT Patient Name: TALI FINK Date of : 1940 Procedure: CT CHEST WITH CONTRAST Date of Service: 12/26/2020 EXAM: CT ABDOMEN PELVIS WITH CONTRAST, C T CHEST WITH CONTRAST INDICATION:Cancer of unknown primary, st aging, Metastatic cancer. COMPARISON(S): MRI from 12/25/2020. TECHNIQUE: Axial ct imaging was performe d through the chest, abdomen and pelvis following IV contrast. Sagittal and coronal reformats were performed. FINDINGS: CHEST: Postsurgical changes with axillary clips and clips along the posterior left breast. Cardiac size is stable. No pericardial fluid. No pleural fluid. No evidence for any enlarged thoracic adenopathy. Tracheobronchial tree is patent. Overall heterogeneous ap pearance of the thyroid gland with multiple hypodense nodules on the left. Relative atrophy of the right thyroid lobe relative to the left. Evaluation under lung windows reveals so me scattered scarring. There are some mild basilar atelectasis. Lungs are otherwise clear. No evidence for any suspicious nodules or masses. Stable 4 mm right upper lobe posterior located nodule image 15 severe degenerat bryan change of the left glenohumeral joint. Healing anterior lateral right fifth rib fracture. ABDOMEN: Liver stable appearance including a hypo dense/cystic lesion within the right hepatic lobe, image 121. Gallbladder surgically absent. Slight intrahepatic ductal prominence stable. Spleen, pancreas and adrenal glands are within normal limits. Kidneys enhanc e symmetrically. Bilateral renal cysts noted. No hydronephrotic changes or perinephric fluid. No dilated small bowel loops. Small hiatal hernia. No evidence for any enlarged abdominal or retroperitoneal lymph nodes . Fat-containing periumbilical hernia. PELVIS: Urinary bladder is unremarkable. Uterus is surgically absent. There is moderate presacral stranding noted. No evidence for any abnormal pelvic adenopathy. No colonic wall thickening. Recent imaging of the lumbar spine has i dentified destructive osseous changes involving S1 and S2 with posterior soft tissue. This is best appreciated sagittal imaging on today's exam with destructive changes. There is a fracture through the superior endplate of S1 which appears new compared to the recent CT. Fracture through the left sacral ala is also new from the recent CT but was present on the MRI. No additional suspicious or destructive osseous change s confirmed on today's exam. IMPRESSION: 1. Redemonstrated destructive osseous ch anges involving S1 and S2 with some soft tissue extending posteriorly into the spinal canal. New fracture line is evident through the superior aspect of S1 extending to th and there is a redemonstrated left-sided sac ral ala fracture. 2. No evidence for any additional confir med osseous abnormality or destructive change. Marked degenerative changes throughout the thoracic and lumbar spine with heterogeneous osseous appearance. 3. Overall stable CT examination of the chest including postsurgical changes from left-sided lumpectomy with multiple surgical clips including axillary clips. 4. Stable right upper lobe pulmonary nod ule. Scattered scarring noted. No additional/enlarging nodules or evidence for any adenopathy. 5. Stable CT examination of the abdomen/ pelvis otherwise. Note that the uterus is surgically absent. Finalized by: Chase Hidalgo MD on 021 4:44 PM CDT Patient/Procedure Information: [facility] MRN/MARVA: [id number] Order Number: [id number] Accession Number: [id number] Ordering Provider: TRINA MIRANDA Authorizing Provider: TRINA MIRANDA Performing Organization Address City/State/Zipcode Phone Number [id number] LAB ONLY-COMPLETE BLOOD COUNT WITH DIFFERENTIAL (12/26/2020 7:11 AM CDT) WBC 6.2 4.0 - 11.0 K/uL [facility] RBC 3.30 (L) 3.80 - 5.30 [facility] M/uL CLINIC Hemoglobin 12.0 11.5 - 15.8 [facility] g/dL [facility] Hematocrit 34.0 (L) 35.0 - 45.0 % [facility] MCV 103.0 (H) 80.0 - 98.[address] [facility] MCH 36.4 (H) 25.5 - 34.[address] [facility] MCHC 35.3 31.5 - 36.5 [facility] g/dL CLINIC RDW-CV 17.9 (H) 11.5 - 15.5 % [facility] RDW-SD 49.0 35.5 - 50.[address] [facility] Platelet Count 319 140 - 400 K/uL [facility] MPV 10.8 8.5 - 12.[address] [facility] Seg Neut Absolute 4.8 1.8 - 8.0 K/uL [facility] Lymphocytes Absolute 0.9 0.8 - 4.1 K/uL [facility] Monocytes Absolute 0.4 0.0 - 1.0 K/uL [facility] Eosinophils Absolute 0.0 0.0 - 0.7 K/uL [facility] Basophil Absolute 0.0 0.0 - 0.2 K/uL [facility] Immature Granulocyte 0.02 0.00 - 0.06 [facility] Absolute K/uL CLINIC Neutrophils Abs. 4,800 /uL [facility] (Segs and Bands) [facility] Neutrophils Percent 77.5 % [facility] Lymphocytes Percent 15.2 % [facility] Monocytes Percent 6.6 % [facility] Immature Granulocyte 0.3 % [facility] Percent CLINIC Eosinophils Percent 0.2 % [facility] Basophil Percent 0.2 % [facility] Nucleated RBC 0 /[address] [facility] Specimen Blood - Blood specimen (specimen) Performing Organization Address City/[facility] Phone Number [address] [address] LAB ONLY - TOTAL PROTEIN EPP (12/26/2020 7:11 AM CDT) Pathologist Sig nature Protein Total 6.5 6.0 - 8.2 g/dL [facility] Specimen Blood - Blood specimen (specimen) Performing Organization Address [facility]oca Phone Number [address] [address] LAB ONLY - ELECTROPHORESIS, SERUM REFLEX IMMUNOFIX (12/26/2020 7:11 AM CDT) EPP Serum Comment: No SHAFER SUREKHA Interpretation 1 monoclonal [facility] gammopathy present. EPP Interp By DAVID Sanders M.D. [facility] Albumin SPEP 3.8 3.5 - 5.0 [facility] g/dL CLINIC Alpha 1 Globulin 0.2 0.1 - 0.4 [facility] g/dL [facility] Alpha 2 Globulin 0.9 0.6 - 1.0 [facility] g/dL CLINIC Beta Globulin 1.1 0.7 - 1.2 [facility] g/dL CLINIC Gamma Globulin 0.6 0.6 - 1.4 [facility] g/dL [facility]INIC Specimen Blood - Blood specimen (specimen) Narrative Performed At NOTE: [facility] Albumin fraction: prealbumin, albumin Alpha 1 fraction: Shlqs-1-vsigpoyhvum, alpha-lipoprotein, vdrhp-9-zmpd glycoprotein, qdcvo-0-qxxioduxran, zidmj-1-orqobmnqajjpeqgz, Gc-globin (vitamin D binding protein) Alpha 2 fraction: Kacya-9-pidqfhpyzhrmrbvp, Gc-globin, epiic-0-ffaalbsqtuqqv, haptoglobin, ceruloplasmin, beta-lipoprotein, fibronectin, C1r, C1s, IgA Beta fraction: Transferrin, C3, C4, C5, hemopexin, factor B, anti-thrombin III, IgA, IgG, IgM, IgD, I gE Gamma fraction: IgG, IgM, IgA, IgD, IgE, fibrinogen, C1q, plasminogen, C-reactive protein Performing Organization Address [facility] Phone Number [facility] [address] [place] [address] LAB[address] [address] VITAMIN B12 (12/26/2020 7:11 AM CDT) Pathologist [facility] Vitamin B12 826 200-1,000 pg/mL [facility] Specimen Blood - Blood specimen (specimen) Performing Organization Address [facility] Phone Number [address] [address] IMMUNOGLOBULINS - IGA, IGG, IGM (12/26/2020 7:11 AM CDT) Pathologist [facility] IgA 436 (H) 70 - 400 mg/dL [facility] IgG 938 700-1,600 mg/dL [facility] IgM 35 (L) 40 - 230 mg/dL [facility] Specimen Blood - Blood specimen (specimen) Performing Organization Address [facility] Phone Number [address] [address] [phone] CA-125 (12/26/2020 7:11 AM CDT) Pathologist [facility] CA 125 21 0 - 35 U/mL [facility] Specimen Blood - Blood specimen (specimen) Narrative Performed At CA125 was measured using the Arevalo method. Results [facility] measured using different testing methods cannot be dir ectly compared. Performing Organization Address [facility] Phone Number [address] [address] [phone] CA 19-9 (12/26/2020 7:11 AM CDT) Pathologist Sig nature CA 19-9 13 0 - 37 U/mL [facility] Specimen Blood - Blood specimen (specimen) Narrative Performed At CA19-9 was measured using the Arevalo method. Results [facility] measured using different testing methods cannot be dir ectly compared. Performing Organization Address [facility] Phone Number [address] [address] CA 15-3 (12/26/2020 7:11 AM CDT) Pathologist [facility] CA 15-3 18.6 0.0 - 31.0 U/mL [facility] Specimen Blood - Blood specimen (specimen) Narrative Performed At CA15-3 was measured using the Arevalo method. Results [facility] measured using different testing methods cannot be dir ectly compared. Performing Organization Address [facility] Phone Number [address] [address] [phone] CEA (12/26/2020 7:11 AM CDT) Pathologist [facility] CEA 2.7 0.0 - 3.0 ng/mL [facility] Specimen Blood - Blood specimen (specimen) Narrative Performed At Normal: 0-5 ng/mL Smoker [facility] CEA was measured using the Arevalo method. Results me asured using different testing methods cannot be directly com pared. Performing Organization Address [facility] Phone Number [address] [address] RENAL FUNCTION PANEL (12/26/2020 7:11 AM CDT) Pathologist Sig [facility] Glucose 124 (H) 70 - 100 mg/dL [facility] BUN 20 6 - 22 mg/dL [facility] Creatinine 0.77 0.60 - 1.10 [facility] mg/dL CLINIC BUN/Creatinine Ratio 26.0 (H) 10.0 - 25.[address] [facility] Sodium 141 135 - 145 meq/L [facility] Potassium 3.2 (L) 3.5 - 5.3 meq/L [facility] Chloride 101 99 - 110 meq/L [facility] CO2 29 20 - 29 meq/L [facility] Anion Gap with K 14 6 - 20 meq/L [facility] Calcium 9.8 8.5 - 10.5 [facility] mg/dL CLINIC Phosphorus 3.9 2.5 - 4.5 mg/dL [facility] Albumin 3.6 3.5 - 5.0 g/dL [facility] Corrected Calcium 10.1 8.5 - 10.5 [facility] mg/dL [facility] Age [address] [facility] eGFR Non- 72 >=60 [facility] [place] mL/min/1.73m2 [facility] eGFR 87 >=60 [facility] mL/min/1.73m2 CLINIC Specimen Blood - Blood specimen (specimen) Performing Organization Address [facility] Phone Number [address] [address] MAGNESIUM (12/26/2020 7:11 AM CDT) Pathologist Sig nature Magnesium 1.7 (L) 1.8 - 2.4 mg/dL [facility] Specimen Blood - Blood specimen (specimen) Performing Organization Address [facility] [place] Phone Number [address] [address] [phone] GLUCOSE BY METER, POCT (12/26/2020 5:31 AM CDT) Pathologist Sig nature Glucose POC 138 (H) 70 - 99 mg/dL [facility] Specimen Blood - Blood specimen (specimen) Performing Organization Address [facility] [place] Phone Number [address] [address] [phone] GLUCOSE BY METER, POCT (12/25/2020 9:37 PM CDT) Pathologist Sig nature Glucose POC 199 (H) 70 - 99 mg/dL [facility] Specimen Blood - Blood specimen (specimen) Performing Organization Address [facility] Phone Number [address] [address] [phone] LAB ONLY-URINE MICROSCOPIC REFLEX (12/25/2020 9:29 PM CDT) WBC Urine 0-5 /hpf Negative, 0-5 [facility] /hpf CLINIC RBC Urine 0-2 /hpf Negative, 0-2 [facility] /hpf CLINIC Squamous Few (11-20) /lpf Negative, Occ [facility] Epithelial Cells (0-10) /lpf, Few CLINIC (11-20) /lpf Bacteria Negative Negative [facility] Specimen Urine - Urine specimen obtained by clean catch procedure (specimen) Narrative Performed At Culture not performed - reflex criteria not met. [facility] Culture is only performed when the urine macroscopic c olor is reported as Bright [place], or whentwoor more of th e following criteria are met: Positive Nitrite, Positive Leukocyte Esterase, WBC's > 5 cells/hpf. Performing Organization Address [facility] [place] Phone Number [address] [address] [phone] URINE DIP, REFLEX TO MICROSCOPIC, REFLEX TO CULTURE (12/25/2020 9:29 PM CDT) Color Urine Straw Surekha, Dark [facility] Yellow, Straw, [facility] Yellow, Colorless Clarity Urine Clear Clear [facility] Glucose Urine Negative Negative [facility] Bilirubin Urine Negative Negative [facility] Ketones Urine Negative Negative, 5 [facility] mg/dL, 10 mg/dL [facility] Specific Mason 1.005 1.002 - 1.[address] [facility] Blood Urine Small (1+) (A) Negative [facility] PH Urine 5.0 5.0, 5.5, 6.0, [facility] 6.5, 7.0, 7.5, [facility] 8.0 Protein Urine Negative Negative [facility] Urobilinogen < 2 mg/dL < 2 mg/dL [facility] Nitrite Negative Negative [facility] Leukocyte Esterase Negative Negative [facility] Urine [facility] Specimen Urine - Urine specimen obtained by clean catch procedure (specimen) Narrative Performed At Microscopic Exam Reflexed [facility] Performing Organization Address City/State/Zipcode Phone Number [address] [address] [phone] LAB ONLY-COMPLETE BLOOD COUNT WITH DIFFERENTIAL (12/25/2020 6:31 PM CDT) WBC 9.4 4.0 - 11.0 K/uL [facility] RBC 3.38 (L) 3.80 - 5.30 [facility] M/uL CLINIC Hemoglobin 12.3 11.5 - 15.8 [facility] g/dL [facility] Hematocrit 34.4 (L) 35.0 - 45.0 % [facility] MCV 101.8 (H) 80.0 - 98.[address] [facility] MCH 36.4 (H) 25.5 - 34.[address] [facility] MCHC 35.8 31.5 - 36.5 [facility] g/dL [facility] RDW-CV 17.5 (H) 11.5 - 15.5 % [facility] RDW-SD 48.7 35.5 - 50.[address] [facility] Platelet Count 278 140 - 400 K/uL [facility] MPV 10.6 8.5 - 12.[address] [facility] Seg Neut Absolute 8.5 (H) 1.8 - 8.0 K/uL [facility] Lymphocytes Absolute 0.7 (L) 0.8 - 4.1 K/uL [facility] Monocytes Absolute 0.1 0.0 - 1.0 K/uL [facility] Eosinophils Absolute 0.0 0.0 - 0.7 K/uL [facility] Basophil Absolute 0.0 0.0 - 0.2 K/uL [facility] Immature Granulocyte 0.05 0.00 - 0.06 [facility] Absolute K/uL CLINIC Neutrophils Abs. 8,500 /uL [facility] (Segs and Bands) [facility] Neutrophils Percent 90.3 % [facility] Lymphocytes Percent 7.4 % [facility] Monocytes Percent 1.3 % [facility] Immature Granulocyte 0.5 % [facility] Percent CLINIC Eosinophils Percent 0.3 % [facility] Basophil Percent 0.2 % [facility] Nucleated RBC 0 /[address] [facility] Specimen Blood - Blood specimen (specimen) Performing Organization Address [facility] Phone Number [address] [address] GLYCATED HEMOGLOBIN (12/25/2020 6:31 PM CDT) Pathologist Sig nature Hgb A1C 5.9 (H) <5.7 % [facility] Estimated Average 123 mg/dL [facility] Specimen Blood - Blood specimen (specimen) Narrative Performed At ADA Interpretive Guidelines [facility] When Using HbA1c for Diagnosis Prediabetes 5.7 - 6.4% Diabetes >= 6.5% When Using HbA1c for Monitoring a Person Known to Have Diabetes, < 7% is a reasonable goal for many nonpregna nt adults, < 7.5% should be considered in children and adolescents (<19 years) with type 1 diab etes. ADA Standards of Medical Care in Diabete s - 2019 Performing Organization Address [facility] Phone Number [facility] [address] [place] [phone] URIC ACID (12/25/2020 6:31 PM CDT) Pathologist Sig nature Uric Acid 4.5 2.5 - 6.2 mg/dL [facility] Specimen Blood - Blood specimen (specimen) Performing Organization Address [facility] Phone Number [address] [address] [phone] MAGNESIUM (12/25/2020 6:31 PM CDT) Pathologist Sig nature Magnesium 1.9 1.8 - 2.4 mg/dL [facility] Specimen Blood - Blood specimen (specimen) Performing Organization Address [facility] Phone Number [address] [phone] COMPREHENSIVE METABOLIC PANEL (12/25/2020 6:31 PM CDT) Pathologist Sig nature Glucose 155 (H) 70 - 100 mg/dL [facility] BUN 19 6 - 22 mg/dL [facility] Creatinine 0.82 0.60 - 1.10 [facility] mg/dL [facility] BUN/Creatinine Ratio 23.2 10.0 - 25.[address] [facility] Sodium 140 135 - 145 meq/L [facility] Potassium 4.0 3.5 - 5.3 meq/L [facility] Chloride 102 99 - 110 meq/L [facility] CO2 26 20 - 29 meq/L [facility] Anion Gap with K 16 6 - 20 meq/L [facility] Calcium 10.2 8.5 - 10.5 [facility] mg/dL [facility] Protein Total 7.6 6.0 - 8.2 g/dL [facility] Albumin 3.8 3.5 - 5.0 g/dL [facility] Alkaline Phosphatase 133 30 - 150 U/L [facility] AST - SGOT 21 0 - 35 U/L [facility] ALT - SGPT 14 0 - 55 U/L [facility] Bilirubin Total 0.5 0.2 - 1.2 mg/dL [facility] Corrected Calcium 10.4 8.5 - 10.5 [facility] mg/dL [facility] Age [address] [facility] eGFR Non- 67 >=60 [facility] [place] mL/min/1.73m2 [facility] eGFR 81 >=60 [facility] mL/min/1.73m2 [facility] Specimen Blood - Blood specimen (specimen) Performing Organization Address City/[facility]/Zipcode Phone Number [address] [phone] GLUCOSE BY METER, POCT (12/25/2020 6:30 PM CDT) [facility] Glucose POC 158 (H) 70 - 99 mg/dL [facility] Specimen Blood - Blood specimen (specimen) Performing Organization Address City/[facility] Phone Number [address] [address] documented in this encounter Visit Diagnoses Diagnosis Intractable pain - Primary Other chronic pain Spinal stenosis of lumbar region with ne urogenic claudication Spinal stenosis, lumbar region, with iggy rogenic claudication Controlled type 2 diabetes mellitus with out complication, without long-term current use of insulin (HCC) Lymphedema of both lower extremities Endometrial cancer (HCC) Malignant neoplasm of corpus uteri, exce pt isthmus 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 Class 3 severe obesity due to excess neeraj ories with serious comorbidity and body mass index (BMI) of 45.0 to 49.9 in adult (HC C) Malignant neoplasm of endometrium (HCC) Malignant neoplasm of corpus uteri, exce pt isthmus Bone metastasis (HCC) 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) Lymphedema of lower extremity Other lymphedema Goiter Goiter, unspecified Gout Gout, unspecified Malignant neoplasm of colon (HCC) Malignant neoplasm of colon, unspecified site documented in this encounter Discharge Diagnoses Not on filedocumented in this encounter Administered Medications Medication Order MAR Action Action Date Dose Rate Site acetaminophen (TYLENOL) tablet 1,000 mg 1,000 mg, Oral, Every six hours prn, Starting 12/26 at 1720, Until Discontinued, mild pain, fever > (indica te temp), 100 degrees F or pain scale 3 or less, Post-Procedure (IR), Adult patients: Total dose of acetaminophen from all acetaminophen containing products should not exceed 4 grams (4000 mg) per day. Pediatric Patients 0 - 3 months: Maximu m of 60 mg/kg/24 hours of acetaminophen. Pediatric Patients older than 3 months: Maximum of 75 mg/kg/24 hours of acetaminophen (Never exceeding 4 grams/day). , acetaminophen (TYLENOL) tablet 650 mg Given 01/08/2021 3:01 AM CDT 650 mg 650 mg, Oral, Every four hours prn, Starting Thu12/25/20 at 1749, Until Discontinued, mild pain, fever, pain scale 3 or less, Pain stratification is defined as follows for either analog scale (0-10) or critical care pain observation tool (CPOT, 0-8). a. No pain (0) b. Mild pain level (1-3) c. Moderate pain level (4-6) d. Severe pain level (greater than or equal to 7) Adult patients: Total dose of acetaminophen from all acetaminophen containing products should not exceed 4 grams (4,000 mg) per day. Pediatric Patients 0 - 3 months: Maximum of 60 mg/kg/24 hours of acetaminophen. Pediatric Patients older than 3 months: Maximum of 75 mg/kg/24 hours of acetaminophen (Never exceeding 4 grams/day)., Given 12/27/2020 10:27 PM CDT 650 mg Given 12/27/2020 9:39 AM CDT 650 mg allopurinol (ZYLOPRIM) tablet 300 mg Given 01/08/2021 8:52 AM CDT 300 mg 300 mg, Oral, DAILY, First dose on Thu12/26/20 at 0900, Until Discontinued Given 01/07/2021 8:24 AM CDT 300 mg Given 2021 8:25 AM CDT 300 mg aspirin enteric coated tablet 81 mg Given 01/07/2021 9:34 PM CDT 81 mg 81 mg, Oral, Bedtime, First dose on Thu12/25/20 at 2100, Until Discontinued, Tablet should be swallowed whole and not be divided, crushed or chewed., Given 2021 9:38 PM CDT 81 mg Given 01/05/2021 10:35 PM CDT 81 mg bisacodyl (DULCOLAX) suppository 10 mg 10 mg, Rectal, One time a day prn, Starting Thu 1 at 1749, Until Discontinued, constipation, Use second for constipatio n. If patient cannot take oral medications, use first for constipation., carbohydrate 15 g 15 g, Oral, PRN per parameter, Starting Thu12/25/20 at 1756, Until Discontinued, low blood glucose, Give 15 grams of carb ohydrate if blood glucose is less than 70 mg/dL, patient is responsive and able to take food or oral meds. Recheck blood glucose in 15 minutes. Repeat 1 time and call MD. If recheck is greater than 70 mg/dL and able to take food or oral meds, give 15 gram carbohydrate if meal or snack due in more than an hour. Serve meal or snack if due in less than 1 hour. See hypoglycemia treatment on cardex. S ources of 15 grams carbohydrate: a. 4 oz of fruit juice (Do NOT give orange juice to dialysis p atients due to risk of hyperkalemia) or b. 4 oz of soda pop (NOT diet) or c . 1 tablespoon of honey, celecoxib (celeBREX) capsule 200 mg Given 01/08/2021 8:52 AM CDT 200 mg 200 mg, Oral, Two times a day, First dose on Thu12/25/20 at 2100, Until Discontinued Given 01/07/2021 9:34 PM CDT 200 mg Given 01/07/2021 8:24 AM CDT 200 mg dextrose 50% IV solution 50 mL 50 mL (25 g), IV, PRN per parameter, Starting 12/25 at 1756, Until Discontinued, low blood glucose, 50 mL, Give if blood glucose is less than 70 mg/dL, patient is unresponsive or NPO, a nd has IV access. Recheck blood glucose in 15 minutes and call MD. Repeat dose if r echeck less than 70 mg/dL and call MD. If recheck is greater than 70 mg/dL and abl e to take food or oral meds, give 15 gram carbohydrate if meal or snack due in mor e than an hour. Serve meal or snack if due in less than 1 hour. See hypoglycemia treatment on car dex., dextrose chewable tablet 16 g 16 g (4 tablet), Oral, PRN per parameter, Starting Thu12/25/20 at 1756, Until Discontinued, low blood glucose, Chew before swallowin g. Give 15 gram of carbohydrate if blood glucose is less th an 70 mg/dL, patient is responsive and able to take food or oral meds. Recheck blood glucose in 15 minutes. Repeat 15 gram carbohydrate if recheck is less than 70 mg/dL and call MD. If recheck is greater than 70 mg/dL and able to take food or o ral meds, give 15 gram carbohydrate if meal or snack due in more than an hour. Serve meal or snack if due in less than 1 hour. See hypoglycemia treatment on cardex. (S ources of 15 gram carbohydrate: 4 oz fruit juice or 4 oz soda pop (NOT diet) or 1 t ablespoonful honey or 4 glucose tablets.), enoxaparin (LOVENOX) subcutaneous injection Given 01/07/2021 9:33 PM CDT 40 mg solution 40 mg 40 mg, Subcutaneous, Every twenty four hours, First dose on Kym 12/27/20 at 2100, Until Discontinued, To avoid the loss of drug when using the 30 mg and 40 mg prefilled syringes, do not expel the air bubble from the syringe before the injection. For ADULT patients: Administration should be alternated between the left and right anterolateral and left and right posterolateral abdominal wall. The whole length of the needle should be introduced into a skin fold held between the thumb and forefinger; the skin fold should be held throughout the injection. To minimize bruising, do not rub the injection site after completion of the injection. For PEDIATRIC patients: Administration should be alternated between appropriate sites for patient age/weight (infants/small children = upper thigh; older children/adolescents = left and right anterolateral and left and right posterolateral abdominal wall). During administration to infants/smaller children sometimes the whole length of the needle is not "introduced" during the injection. Administer injection into a skin fold held between the thumb and forefinger; the skin fold should be held throughout the injection. To minimize bruising, do not rub the injection site after completion of the injection., Given 2021 9:39 PM CDT 40 mg Given 01/05/2021 10:36 PM CDT 40 mg Abdo men Right Lower TD fentaNYL patch (DURAGESIC) 25 Applied 2021 5:10 PM CDT 25 m cg Right Arm mcg/hr 25 mcg, Transdermal, Every seventy two hours, First dose on Thu01/03/21 at 1800, Until Discontinued, Administer over 72 Hours Applied 01/03/2021 6:24 PM CDT 25 mcg Arm Left Upper TD fentaNYL patch: VERIFY THAT PATCH IS IN PLACE 1 patch 1 patch, Transdermal, Two times a day, First dose on 12/25/20 at 2100, Until Discontinued, Total dose: 25 mcg/hr (1 patch), ferrous sulfate (65 mg FE per 325 mg tablet) Given 07/2021 8:52 AM CDT 325 mg tablet 325 mg 325 mg, Oral, Every morning, First dose on Thu12/26/20 at 0900, Until Discontinued Given 01/07/2021 8:24 AM CDT 325 mg Given 2021 8:25 AM CDT 325 mg furosemide (LASIX) tablet 80 mg Given 01/08/2021 8:52 AM CDT 80 mg 80 mg, Oral, Daily, First dose on Thu12/28/20 at 0900, Until Discontinued Given 01/07/2021 8:24 AM CDT 80 mg Given 2021 8:26 AM CDT 80 mg glucagon for injection 1 mg vial 1 mg 1 mg, Intramuscular, PRN per parameter, Starting Thu at 1756, Until Discontinued, low blood glucose, Give if blood glucose less than 70 mg/dL, patient is unresponsive or NPO, and has no IV ac cess. Establish IV access. Recheck blood glucose in 15 minutes and call MD. If r echeck is greater than 70 mg/dL and able to take food or oral meds, give 15 gram car bohydrate if meal or snack due in more than an hour. Serve meals or snack if due in less than 1 ho ur. See hypoglycemia treatment on cardex. Reconstitute vial with 1 mL of sterile water for injection for reconstitution for a final concentra tion of 1 mg/mL. Shake vial gently. Use immediately and discard unused portion. Reconstitute with 1 mL of sterile water for injection to yield 1 mg/mL. Shake vial gently. Use immediately and discard unused portion., HYDROmorphone (DILAUDID) injection solution Given 01/2021 8:05 AM CDT 0.5 mg (conc: 0.5 mg/0.5mL) 0.5 mg 0.5 mg, IV, Every one hour prn, Starting Thu12/25/20 at 1754, Until Discontinued, moderate pain, 0.5 mL, for pain Scale 4 to 6 or pain not relieved by medications for Pain Scale 1 - 3, Given 01/02/2021 9:06 PM CDT 0.5 mg Given 01/02/2021 10:58 AM CDT 0.5 mg HYDROmorphone (DILAUDID) injection solution Given 01/03/2021 1: 40 PM CDT 1 mg (conc: 1 mg/mL) 1 mg 1 mg, IV, Every one hour prn, Starting Thu12/25/20 at 1754, Until Discontinued, severe pain, 1 mL, for pain Scale 7 or greater or pain not relieved by medications for Pain Scale 4 to 6, Given 01/03/2021 1:07 AM CDT 1 mg Given 12/30/2020 8:43 AM CDT 1 mg HYDROmorphone (DILAUDID) tablet 2 mg Given 01/08/2021 12:20 PM CDT 2 mg 2 mg, Oral, Every four hours prn, Starting Thu01/03/21 at 1757, Until Discontinued, moderate pain, severe pain, Use first, Given 01/08/2021 8:52 AM CDT 2 mg Given 01/07/2021 9:54 AM CDT 2 mg insulin aspart (NovoLOG) SQ correction Given 01/07/2021 5:47 PM CDT 3 Units scale (Adult) 2-8 Units, Subcutaneous, Three times a day, First dose on Thu12/25/20 at 1800, Until Discontinued, 0.08 mL, Give this dose whether patient is eating or patient is NPO LOW DOSE insulin aspart (NovoLOG) subcutaneous correction scale Premeal Blood Glucose = Insulin Dose 150-199 2 units 200-249 3 units 250-299 5 units 300-349 7 units Over 349 8 units, Given 2021 5:13 PM CDT 2 Units Given 01/05/2021 5:19 PM CDT 2 Units magnesium chloride (MAG64) 64 mg enteric Given 01/08/2021 8:52 AM CDT 64 mg coated tablet 64 mg 64 mg, Oral, Daily, First dose on Thu12/26/20 at 0900, Until Discontinued, Tablet should not be crushed or chewed., Given 01/07/2021 8:24 AM CDT 64 mg Given 2021 8:26 AM CDT 64 mg megestrol acetate (MEGACE) oral suspension Given 01/08/2021 12:1 7 PM CDT 80 mg (40 mg/mL) 80 mg 80 mg, Oral, Four times a day, First dose on Thu12/31/20 at 2100, Until Discontinued, 2 mL, This medication is a high risk hazardous drug. Wear 2 pairs of chemo gloves for administration. If administering oral liquid or sublingual, also wear a chemo gown and face shield if there is a possibility of splashing. If unable to administer dose intact - contact pharmacy or reference policy for other administration options. Dispose of empty packages in the yellow hazardous container. Dispose of unused or partial packages in the black waste container and label must be marked as containing chemotherapy as outlined by the region. , Given 01/08/2021 8:52 AM CDT 80 mg Given 01/07/2021 9:34 PM CDT 80 mg metOLazone (ZAROXOLYN) tablet 2.5 mg Given 01/07/2021 8:25 AM CDT 2.5 mg 2.5 mg, Oral, One time a day Thu, First dose on Thu12/28/20 at 0830, Until Discontinued, If being given with furosemide or bumetanide, give metolazone 30 minutes prior to furosemide or bumetanide., Given 01/04/2021 8:05 AM CDT 2.5 mg Given 01/02/2021 10:27 AM CDT 2.5 mg multivitamin therapeutic with minerals Given 01/08/2021 8:52 AM CDT 1 tablet (THERA-M) tablet 1 tablet 1 tablet, Oral, Daily, First dose on Thu12/26/20 at 0900, Until Discontinued Given 01/07/2021 8:24 AM CDT 1 tablet Given 2021 8:26 AM CDT 1 tablet nalOXone (NARCAN) injection solution (vi al) 0.2 mg 0.2 mg, Injection, Every two minutes prn, Starting Thu01/03/21 at 1758, Until Discontinued, other (Specify), opioid induced respirat ory depression - PARTIAL reversal, 0.5 mL, PARTIAL REVERSAL/RESPI RATORY DEPRESSION If respiratory rate less than 8/minute - call rapid response and administer (un til respiratory rate increases to 10/minute). Give IV (preferred), IM or S UBQ, nalOXone (NARCAN) injection solution (vi al) 0.4 mg 0.4 mg, Injection, Every two minutes prn, Starting Kym 01/03/21 at 1758, Until Discontinued, other (Specify), opioid in duced respiratory arrest - FULL reversal, 1 mL, FULL REVERSAL/RESPIRATORY ARREST If patient is not breathing - call CODE BLUE and administer. Give IV (preferred), IM or SUBQ, nystatin (NILSTAT) cream Given 12/25/2020 9:23 PM CDT Apply externally, Three times a day prn, Starting Thu12/25/20 at 1746, Until Discontinued, other (Specify), Skin rash ondansetron (ZOFRAN) injection solution 4 mg 4 mg, IV, Every four hours prn, Starting Thu12/25/20 at 1749, Until Discontinued, nausea, vomiting, 2 mL, Use FIRST. If ineffective afte r 15 minutes use prochlorperazine (COMPAZINE). If preference is to furt her dilute for IV administration: First draw up patient-sp ecific dose, then dilute to 10 mL with 0.9% sodium chloride., polyethylene glycol (MIRALAX) packet 1 Given 01/08/2021 9:04 AM CDT 1 packet packet 1 packet, Oral, Daily, First dose on Thu12/29/20 at 0900, Until Discontinued, Dissolve in 8 ounces of water, juice, soda, coffee, tea Do NOT give if patient on thickened liquids. Contact provider for alternative if needed. , Given 2021 8:26 AM CDT 1 packet Given 01/05/2021 8:00 AM CDT 1 packet potassium chloride (K-MARIAJOSE) packet 40 mEq Given 01/08/2021 12:17 PM CDT 40 mEq 40 mEq, Oral, Four times a day, First dose (after last modification) on Thu01/04/21 at 0900, Until Discontinued, Mix or dissolve completely in 3 to 8 ounces of cold water, juice or other suitable beverage and drink slowly., Given 01/08/2021 8:41 AM CDT 40 mEq Given 01/07/2021 9:34 PM CDT 40 mEq prochlorperazine (COMPAZINE) 10 mg/2 mL injection solution 5 mg 5 mg, IV, Every six hours prn, Starting Thu12/25/20 at 1749, Until Discontinued, nausea, vomiting, 1 mL, Use SECOND. If ineffective and ondansetron used, call physician for alternative, senna-docusate sodium (SENOKOT-S;PERICOL AMINA) tablet 1 tablet 1 tablet, Oral, Two times a day prn, Starting 12/25 at 1749, Until Discontinued, constipation, Use first fo r constipation unless patient cannot take oral medications, simvastatin (ZOCOR) tablet 40 mg Given 01/07/2021 9:33 PM CDT 40 mg 40 mg, Oral, Bedtime, First dose on Thu12/25/20 at 2100, Until Discontinued Given 2021 9:38 PM CDT 40 mg Given 01/05/2021 10:44 PM CDT 40 mg sodium chloride 0.9% flush (adult) 10 mL Given 01/08/2021 9:04 AM CDT 10 mL 10 mL, IV, Two times a day and prn, First dose on Thu12/25/20 at 2100, Until Discontinued, 10 mL, Flush unused lumens as scheduled and as often as necessary before and after meds. Use a push/pause technique when flushing to create turbulence., Given 01/07/2021 9:36 PM CDT 10 mL Given 01/07/2021 8:25 AM CDT 10 mL traZODone (DESYREL) tablet 50 mg Given 12/31/2020 11:33 PM CDT 50 mg 50 mg, Oral, Bedtime prn, Starting Thu12/25/20 at 1754, Until Discontinued, other (Specify), insomnia Given 12/30/2020 2:25 AM CDT 50 mg Given 12/27/2020 10:28 PM CDT 50 mg vitamin D3 (cholecalciferol) tablet Given 01/08/2021 8:52 AM CD T 2,000 Units 2,000 Units 2,000 Units, Oral, Every morning, First dose on Thu12/26/20 at 0900, Until Discontinued Given 01/07/2021 8:24 AM CDT 2,000 Units Given 2021 8:26 AM CDT 2,000 Units Medication Order MAR Action Action Date Dose Rate Site fentaNYL 100 mcg/2 mL Given 12/26/2020 4:49 PM CDT 50 mcg preservative free injection solution 0-500 mcg 0-500 mcg, IV, One time prn, Starting Thu12/26/20 at 1655, Until Thu12/27/20 at 0054, other (Specify), sedation during IR procedure, 10 mL, Pre-Procedure (IR), procedural area to release, Suggested boluses of 25 mcg. Give under the direction of a provide privileged to perform sedation. Max total cumulative dose of 500 mcg for each procedure. Do not give on the floor., fentaNYL patch (DURAGESIC) Applied 12/31/2020 9:43 PM CDT 12 mcg Arm Right Right 12 mcg/hr Upper TD 12 mcg, Transdermal, Every seventy two hours, First dose on Thu12/25/20 at 2030, Until Discontinued, Administer over 72 Hours Applied 12/28/2020 9:05 PM CDT 12 mcg Left Shoulder TD Applied 12/25/2020 9:15 PM CDT 12 mcg Righ t Arm iohexol (OMNIPAQUE) 350 mg/mL solution 150 Given 12/26/2020 12:01 PM CDT 142 mL mL 150 mL, IV, Now imaging, 1 dose, Starting Thu12/26/20 at 1206, Until Thu12/26/20 at 1201, 150 mL iohexol (OMNIPAQUE) 9 MG/ML oral solution Given 12/26/2020 10:30 AM CDT 100 mL 100 mL 100 mL, Oral, One time, 1 dose, Thu12/26/20 at 1030, 500 mL, Dose #3 = 100 mL 10 minutes prior to scan, iohexol (OMNIPAQUE) 9 MG/ML oral solution Given 12/26/2020 10:09 AM CDT 200 mL 200 mL 200 mL, Oral, Every thirty minutes, 2 doses, First dose on Thu12/26/20 at 0930, Last dose on Thu12/26/20 at 1000, 500 mL, Dose #1 = 200 mL 70 minutes prior to scan Dose #2 = 200 mL 40 minutes prior to scan, Given 12/26/2020 9:39 AM CDT 200 mL magnesium sulfate 2 g/50 mL premixed IV Given 12/31/2020 6:48 P M CDT 2 g solution 2 g, IV, Now, 1 dose, Thu12/31/20 at 1800, 50 mL midazolam (VERSED) injection solution 2 mg Given 12/26/2020 4:43 PM CDT 2 mg 2 mg, IV, One time, 1 dose, Thu12/26/20 at 1645, 2 mL, For Anxiety: Administer in Interventional Radiology. Do not give on the floor., potassium chloride (K-MARIAJOSE) packet 20 mEq Given 12/29/2020 5:35 PM CDT 20 mEq 20 mEq, Oral, Two times a day with meals, First dose on Thu12/26/20 at 0855, Until Discontinued, Mix or dissolve completely in 3 to 8 ounces of cold water, juice or other suitable beverage and drink slowly., Given 12/29/2020 8:31 AM CDT 20 mEq Given 12/28/2020 6:00 PM CDT 20 mEq potassium chloride (K-MARIAJOSE) packet 40 mEq Given 01/01/2021 8:59 AM CDT 40 mEq 40 mEq, Oral, Two times a day with meals, First dose (after last modification) on Thu12/30/20 at 0800, Until Discontinued, Mix or dissolve completely in 3 to 8 ounces of cold water, juice or other suitable beverage and drink slowly., Given 12/31/2020 5:30 PM CDT 40 mEq Given 12/31/2020 7:53 AM CDT 40 mEq potassium chloride (K-MARIAJOSE) packet 40 mEq Given 01/03/2021 5:47 PM CDT 40 mEq 40 mEq, Oral, Three times a day with meals, First dose (after last modification) on Thu01/01/21 at 1130, Until Discontinued, Mix or dissolve completely in 3 to 8 ounces of cold water, juice or other suitable beverage and drink slowly., Given 01/03/2021 12:20 PM CDT 40 mEq Given 01/03/2021 8:04 AM CDT 40 mEq potassium chloride 20 mEq, lidocaine 10 mg Given 01/01/2021 11:17 AM CDT 20 mEq in dextrose 5% 250 mL 20 mEq, IV, One time, 1 dose, Thu01/01/21 at 1100, 250 mL, Infuse at 10 mEq per hour. May increase to 20 mEq per hour if patient is on telemetry., sodium chloride 0.9% IV solution New Bag 12/26/2020 9:21 AM CDT 50 mL/hr IV, at 50 mL/hr, Continuous, Starting 12/26/20 at 0945, Until Kym 12/27/20 at 1820, 1,000 mL documented in this encounter
[2021-01-09] MEDS: fentaNYL 25 MCG/HR Transdermal Patch TRDERM SCH (17:31)
[2021-01-09] MEDS: Aspirin 81 MG Tab.EC PO SCH (20:29)
[2021-01-09] MEDS: Enoxaparin 40 MG/0.4 ML Syringe SUBCUT SCH (20:30)
[2021-01-09] MEDS: Simvastatin 40 MG Tab PO SCH (20:32)
[2021-01-10] MEDS: HYDROmorphone 2 MG Tab PO PRN ×3 (07:27→19:29)
[2021-01-10] MEDS: Insulin Lispro 100 Unit/ML 3 ML KwikPen SUBCUT SCH ×3 (07:34→17:06)
[2021-01-10] MEDS: Furosemide 80 MG Tab PO SCH (08:27)
[2021-01-10] MEDS: Allopurinol 300 MG Tab PO SCH (08:27)
[2021-01-10] MEDS: Celecoxib 200 MG Cap PO SCH ×2 (08:27→21:10)
[2021-01-10] MEDS: Potassium Chloride 20 MEQ Packet PO SCH ×4 (08:27→21:11)
[2021-01-10] MEDS: Magnesium Chloride 64 MG Tab.ER PO SCH (08:27)
[2021-01-10] MEDS: Cholecalciferol (Vitamin D3) 25 MCG Tab PO SCH (08:27)
[2021-01-10] MEDS: Multivitamins with Iron/Calcium/Folic Acid/Minerals Tab PO SCH (08:27)
[2021-01-10] MEDS: Ferrous Sulfate 325 MG Tab PO SCH (08:28)
[2021-01-10] MEDS: Megestrol Susp 40 MG/ML ML (240 ML Bottle) PO SCH ×4 (08:28→21:10)
[2021-01-10] MEDS: metFORMIN 500 MG Tab PO SCH ×2 (08:28→17:05)
[2021-01-10] MEDS: Polyethylene Glycol 3350 Powder 17 GM Packet PO SCH (11:29)
[2021-01-10] MEDS: Gabapentin 300 MG Cap PO SCH (21:10)
[2021-01-10] MEDS: Dexamethasone 4 MG Tab PO SCH (21:10)
[2021-01-10] MEDS: Aspirin 81 MG Tab.EC PO SCH (21:10)
[2021-01-10] MEDS: Enoxaparin 40 MG/0.4 ML Syringe SUBCUT SCH (21:11)
[2021-01-11] MEDS: HYDROmorphone 2 MG Tab PO PRN ×2 (06:53→11:09)
[2021-01-11] MEDS: metFORMIN 500 MG Tab PO SCH ×2 (08:28→17:48)
[2021-01-11] MEDS: Cholecalciferol (Vitamin D3) 25 MCG Tab PO SCH (08:28)
[2021-01-11] MEDS: Celecoxib 200 MG Cap PO SCH ×2 (08:28→20:48)
[2021-01-11] MEDS: Polyethylene Glycol 3350 Powder 17 GM Packet PO SCH (08:28)
[2021-01-11] MEDS: Multivitamins with Iron/Calcium/Folic Acid/Minerals Tab PO SCH (08:28)
[2021-01-11] MEDS: Dexamethasone 4 MG Tab PO SCH ×3 (08:29→20:48)
[2021-01-11] MEDS: Megestrol Susp 40 MG/ML ML (240 ML Bottle) PO SCH ×4 (08:29→20:48)
[2021-01-11] MEDS: Potassium Chloride 20 MEQ Packet PO SCH ×2 (08:29→13:35)
[2021-01-11] MEDS: Ferrous Sulfate 325 MG Tab PO SCH (08:30)
[2021-01-11] MEDS: Magnesium Chloride 64 MG Tab.ER PO SCH (08:30)
[2021-01-11] MEDS ORDERED: Insulin Lispro 100 Unit/ML 3 ML KwikPen SUBCUT ONE (08:32)
[2021-01-11] MEDS: Insulin Lispro 100 Unit/ML 3 ML KwikPen SUBCUT SCH ×3 (08:33→17:48)
--- NOTE | 2021-01-11 09:19 | PCM.PN ---
- General Info Date of Service: 01/11/21 Admission Dx/Problem (Free Text): Patient states her buttocks or her sacral fractures has a lot of pain. When she sitting in certain positions and lying down the pain almost goes away. When she is walking it's like an 8/10. She is currently on a fentanyl patch and taken Dilaudid like 4 times a day on a when necessary basis. She denies any fevers, chills, shortness of breath or cough. - Patient Data Vitals - Most Recent: Last Vital Signs Temp 98.4 F 01/10/21 08:00 Pulse 70 01/10/21 08:00 Resp 18 01/10/21 08:00 BP 127/67 01/10/21 08:00 Pulse Ox 94 L 01/10/21 08:00 Weight - Most Recent: 266 lb Lab Results Last 24 Hours: Laboratory Results - last 24 hr 01/10/21 01/10/21 01/11/21 Range/Units 11:26 17:04 06:13 POC Glucose 135 H 123 H 170 H (80-116) mg/dL Med Orders - Current: Current Medications Acetaminophen (Acetaminophen 650 Mg Tab.Er) 650 mg PO Q8H PRN PRN Reason: Pain (mild 1-3) Allopurinol (Allopurinol 300 Mg Tab) 300 mg PO DAILY [facility] Last Admin: 01/10/21 08:27 Dose: 300 mg Documented by: Aspirin (Aspirin 81 Mg Tab.Ec) 81 mg PO BEDTIME [facility] Last Admin: 01/10/21 21:10 Dose: 81 mg Documented by: Celecoxib (Celecoxib 200 Mg Cap) 200 mg PO BID [facility] Last Admin: 01/11/21 08:28 Dose: 200 mg Documented by: Cholecalciferol (Cholecalciferol (Vitamin D3) 25 Mcg Tab) 50 mcg PO DAILY [facility] Last Admin: 01/11/21 08:28 Dose: 50 mcg Documented by: Dexamethasone (Dexamethasone 4 Mg Tab) 4 mg PO TID [facility] Last Admin: 01/11/21 08:29 Dose: 4 mg Documented by: Enoxaparin Sodium (Enoxaparin 40 Mg/0.4 Ml Syringe) 40 mg SUBCUT Q24H [facility] Last Admin: 01/10/21 21:11 Dose: 40 mg Documented by: Fentanyl (Fentanyl 25 Mcg/Hr Transdermal Patch) 25 mcg TRDERM Q72H [facility] Last Admin: 01/09/21 17:31 Dose: 25 mcg Documented by: Ferrous Sulfate (Ferrous Sulfate 325 Mg Tab) 325 mg PO DAILY [facility] Last Admin: 01/11/21 08:30 Dose: 325 mg Documented by: Furosemide (Furosemide 80 Mg Tab) 80 mg PO DAILY [facility] Last Admin: 01/10/21 08:27 Dose: 80 mg Documented by: Gabapentin (Gabapentin 300 Mg Cap) 300 mg PO BEDTIME [facility] Last Admin: 01/10/21 21:10 Dose: 300 mg Documented by: Hydromorphone HCl (Hydromorphone 2 Mg Tab) 2 mg PO Q4H PRN PRN Reason: Pain (severe 7-10) Last Admin: 01/11/21 06:53 Dose: 2 mg Documented by: Insulin Human Lispro (Insulin Lispro 100 Unit/Ml 3 Ml Kwikpen) 2 - 8 unit SUBCUT TIDMEALS [facility]; Protocol Last Admin: 01/11/21 08:33 Dose: 2 units Documented by: Magnesium Chloride (Magnesium Chloride 64 Mg Tab.Er) 64 mg PO DAILY [facility] Last Admin: 01/11/21 08:30 Dose: 64 mg Documented by: Megestrol Acetate (Megestrol Susp 40 Mg/Ml Ml (240 Ml Bottle)) 80 mg PO QID [facility] Last Admin: 01/11/21 08:29 Dose: 80 mg Documented by: Metformin HCl (Metformin 500 Mg Tab) 500 mg PO BIDMEALS [facility] Last Admin: 01/11/21 08:28 Dose: 500 mg Documented by: Metolazone (Metolazone 2.5 Mg Tab) 2.5 mg PO MOWEFR@0800 [facility] Last Admin: 01/09/21 09:35 Dose: 2.5 mg Documented by: Multivitamins/Minerals (Multivitamins With Iron/Calcium/Folic Acid/Minerals Tab) 1 tab PO DAILY [facility] Last Admin: 01/11/21 08:28 Dose: 1 tab Documented by: Naloxone HCl (Naloxone 0.4 Mg/Ml Sdv) 0.4 mg IV ASDIRECTED PRN PRN Reason: RESPIRATORY DEPRESSION Nystatin (Nystatin Crm 30 Gm Tube) 0 gm TOP TID PRN PRN Reason: Rash Polyethylene Glycol (Polyethylene Glycol 3350 Powder 17 Gm Packet) 17 gm PO DAILY [facility] Last Admin: 01/11/21 08:28 Dose: Not Given Documented by: Potassium Chloride (Potassium Chloride 20 Meq Packet) 40 meq PO QID [facility] Last Admin: 01/11/21 08:29 Dose: 40 meq Documented by: Propylene Glycol (Peg 400/Propylene Glycol Ophth Soln 15 Ml Bottle) 0 ml EYEBOTH Q4H PRN PRN Reason: Dry Eyes Senna/Docusate Sodium (Docusate Sodium/Sennosides 50-8.6 Mg Tab) 1 tab PO DAILY [facility] Last Admin: 01/11/21 08:28 Dose: Not Given Documented by: Trazodone HCl (Trazodone 50 Mg Tab) 50 mg PO BEDTIME PRN PRN Reason: Insomnia Discontinued Medications Hydromorphone HCl (Hydromorphone 2 Mg Tab) 2 mg PO TID PRN PRN Reason: Pain (severe 7-10) Last Admin: 01/10/21 07:27 Dose: 2 mg Documented by: Polyethylene Glycol (Polyethylene Glycol 3350 Powder 17 Gm Packet) 17 gm PO DAILY PRN PRN Reason: Constipation Simvastatin (Simvastatin 40 Mg Tab) 40 mg PO BEDTIME [facility] Last Admin: 01/09/21 20:32 Dose: 40 mg Documented by: - Exam General: Alert, Oriented Neck: Supple Lungs: Clear to Auscultation, Normal Respiratory Effort Cardiovascular: Regular Rate, Regular Rhythm, No Murmurs - Patient Data Lab Results Last 24 hrs: Laboratory Results - last 24 hr 01/10/21 01/10/21 01/11/21 Range/Units 11:26 17:04 06:13 POC Glucose 135 H 123 H 170 H (80-116) mg/dL Sepsis Event Note - Evaluation Sepsis Screening Result: No Definite Risk - Problem List & Annotations (1) Pathological fracture of sacral vertebra SNOMED Code(s): 30901171460693026 Code(s): M84.48XA - PATHOLOGICAL FRACTURE, OTHER SITE, INIT ENCNTR FOR FRACTURE Status: Acute Current Visit: No Annotation/Comment:: MRI Lumbar without contrast: Aggressive appearing lesion involving the S1 & S2 segments with ventral epidural soft tissue component causing sever canal & right subarticular recess stenosis. Differential includes metastatic disease & primary neoplasm such as sarcoma. Hematology oncology consultation recommended. (2) Sacral lesion SNOMED Code(s): 07479346 Code(s): M53.3 - SACROCOCCYGEAL DISORDERS, NOT ELSEWHERE CLASSIFIED Status: Acute Current Visit: No (3) Diabetes type 2, controlled SNOMED Code(s): 58573962, 978843887 Code(s): E11.9 - TYPE 2 DIABETES MELLITUS WITHOUT COMPLICATIONS Status: Chronic Current Visit: No (4) History of breast cancer SNOMED Code(s): 641215261 Code(s): Z85.3 - PERSONAL HISTORY OF MALIGNANT NEOPLASM OF BREAST Status: Chronic Current Visit: No (5) History of colon cancer SNOMED Code(s): 998409361 Code(s): Z85.038 - PERSONAL HISTORY OF MALIGNANT NEOPLASM OF LARGE INTESTINE Status: Chronic Current Visit: No (6) History of uterine cancer SNOMED Code(s): 912925535 Code(s): Z85.42 - PERSONAL HISTORY OF MALIGNANT NEOPLASM OF OTH PRT UTERUS Status: Chronic Current Visit: No (7) Obesity SNOMED Code(s): 632988333, 196429195 Code(s): E66.9 - OBESITY, UNSPECIFIED Status: Chronic Current Visit: No Qualifiers: Body mass index: BMI 45.0-49.9 - Problem List Review Problem List Initiated/Reviewed/Updated: Yes - Plan Plan:: 1. Lidocaine patch to the sacrum to see if that can help him some pain. 2. Is not getting better consider increasing the dose of fentanyl patch. 3. continue current care.
[2021-01-11] MEDS: Metolazone 2.5 MG Tab PO SCH (10:04)
[2021-01-11] MEDS: Allopurinol 300 MG Tab PO SCH (10:05)
[2021-01-11] MEDS: Furosemide 80 MG Tab PO SCH (10:05)
[2021-01-11] MEDS: Lidocaine 4% 1 each Patch TOP SCH (11:10)
[2021-01-11] MEDS: Aspirin 81 MG Tab.EC PO SCH (20:48)
[2021-01-11] MEDS: Enoxaparin 40 MG/0.4 ML Syringe SUBCUT SCH (20:49)
[2021-01-11] MEDS: Gabapentin 300 MG Cap PO SCH (21:00)
[2021-01-12] MEDS: HYDROmorphone 2 MG Tab PO PRN ×4 (02:30→21:13)
[2021-01-12] MEDS: metFORMIN 500 MG Tab PO SCH ×2 (07:58→17:55)
[2021-01-12] MEDS: Dexamethasone 4 MG Tab PO SCH ×3 (07:59→21:09)
[2021-01-12] MEDS: Celecoxib 200 MG Cap PO SCH ×2 (07:59→21:08)
[2021-01-12] MEDS: Ferrous Sulfate 325 MG Tab PO SCH (08:00)
[2021-01-12] MEDS: Potassium Chloride 20 MEQ Packet PO SCH (08:01)
[2021-01-12] MEDS: Furosemide 80 MG Tab PO SCH (08:02)
[2021-01-12] MEDS: Magnesium Chloride 64 MG Tab.ER PO SCH (08:03)
[2021-01-12] MEDS: Megestrol Susp 40 MG/ML ML (240 ML Bottle) PO SCH ×4 (08:03→21:17)
[2021-01-12] MEDS: Multivitamins with Iron/Calcium/Folic Acid/Minerals Tab PO SCH (08:04)
[2021-01-12] MEDS: Polyethylene Glycol 3350 Powder 17 GM Packet PO SCH (08:04)
[2021-01-12] MEDS: Insulin Lispro 100 Unit/ML 3 ML KwikPen SUBCUT SCH ×3 (08:05→17:54)
[2021-01-12] MEDS: Cholecalciferol (Vitamin D3) 25 MCG Tab PO SCH (08:05)
[2021-01-12] MEDS: Allopurinol 300 MG Tab PO SCH (08:05)
[2021-01-12] MEDS: Lidocaine 4% 1 each Patch TOP SCH (08:07)
[2021-01-12] MEDS: fentaNYL 25 MCG/HR Transdermal Patch TRDERM SCH (17:58)
[2021-01-12] MEDS: Aspirin 81 MG Tab.EC PO SCH (21:09)
[2021-01-12] MEDS: Enoxaparin 40 MG/0.4 ML Syringe SUBCUT SCH (21:09)
[2021-01-12] MEDS: Gabapentin 300 MG Cap PO SCH (21:11)
[2021-01-13] MEDS: metFORMIN 500 MG Tab PO SCH ×2 (08:14→17:22)
[2021-01-13] MEDS: Celecoxib 200 MG Cap PO SCH ×2 (08:14→21:19)
[2021-01-13] MEDS: Insulin Lispro 100 Unit/ML 3 ML KwikPen SUBCUT SCH ×3 (08:14→17:22)
[2021-01-13] MEDS: HYDROmorphone 2 MG Tab PO PRN ×3 (08:14→21:25)
[2021-01-13] MEDS: Lidocaine 4% 1 each Patch TOP SCH (08:15)
[2021-01-13] MEDS: Megestrol Susp 40 MG/ML ML (240 ML Bottle) PO SCH ×4 (08:15→21:21)
[2021-01-13] MEDS: Ferrous Sulfate 325 MG Tab PO SCH (08:16)
[2021-01-13] MEDS: Multivitamins with Iron/Calcium/Folic Acid/Minerals Tab PO SCH (08:16)
[2021-01-13] MEDS: Dexamethasone 4 MG Tab PO SCH ×3 (08:16→21:19)
[2021-01-13] MEDS: Polyethylene Glycol 3350 Powder 17 GM Packet PO SCH (08:16)
[2021-01-13] MEDS: Magnesium Chloride 64 MG Tab.ER PO SCH (08:16)
[2021-01-13] MEDS: Cholecalciferol (Vitamin D3) 25 MCG Tab PO SCH (08:16)
--- NOTE | 2021-01-13 08:16 | PCM.PN ---
- General Info Date of Service: 01/13/21 Admission Dx/Problem (Free Text): Patient states the dexamethasone she thinks has helped considerably. She doesn't know if the lidocaine patches helping. Still has the buttocks pain that's better sitting and lying or standing. But it's improved. She has no chest pain, shortness breath or cough. She has a little rash on her legs that she's had since the fall after she had COVID. - Patient Data Vitals - Most Recent: Last Vital Signs Temp 98.0 F 01/12/21 08:50 Pulse 98 01/12/21 08:50 Resp 18 01/12/21 08:50 BP 126/64 01/12/21 08:50 Pulse Ox 99 01/12/21 08:50 Weight - Most Recent: 269 lb 1.6 oz Lab Results Last 24 Hours: Laboratory Results - last 24 hr 01/12/21 01/12/21 01/13/21 Range/Units 11:45 17:26 06:59 POC Glucose 265 H D 201 H 194 H (80-116) mg/dL Med Orders - Current: Current Medications Acetaminophen (Acetaminophen 650 Mg Tab.Er) 650 mg PO Q8H PRN PRN Reason: Pain (mild 1-3) Allopurinol (Allopurinol 300 Mg Tab) 300 mg PO DAILY [facility] Last Admin: 01/12/21 08:05 Dose: 300 mg Documented by: Aspirin (Aspirin 81 Mg Tab.Ec) 81 mg PO BEDTIME [facility] Last Admin: 01/12/21 21:09 Dose: 81 mg Documented by: Celecoxib (Celecoxib 200 Mg Cap) 200 mg PO BID [facility] Last Admin: 01/12/21 21:08 Dose: 200 mg Documented by: Cholecalciferol (Cholecalciferol (Vitamin D3) 25 Mcg Tab) 50 mcg PO DAILY [facility] Last Admin: 01/12/21 08:05 Dose: 50 mcg Documented by: Dexamethasone (Dexamethasone 4 Mg Tab) 4 mg PO TID [facility] Last Admin: 01/12/21 21:09 Dose: 4 mg Documented by: Enoxaparin Sodium (Enoxaparin 40 Mg/0.4 Ml Syringe) 40 mg SUBCUT Q24H [facility] Last Admin: 01/12/21 21:09 Dose: 40 mg Documented by: Fentanyl (Fentanyl 25 Mcg/Hr Transdermal Patch) 25 mcg TRDERM Q72H [facility] Last Admin: 01/12/21 17:58 Dose: 25 mcg Documented by: Ferrous Sulfate (Ferrous Sulfate 325 Mg Tab) 325 mg PO DAILY [facility] Last Admin: 01/12/21 08:00 Dose: 325 mg Documented by: Furosemide (Furosemide 80 Mg Tab) 80 mg PO Q48H [facility] Last Admin: 01/12/21 08:02 Dose: 80 mg Documented by: Gabapentin (Gabapentin 300 Mg Cap) 300 mg PO BEDTIME [facility] Last Admin: 01/12/21 21:11 Dose: 300 mg Documented by: Hydromorphone HCl (Hydromorphone 2 Mg Tab) 2 mg PO Q4H PRN PRN Reason: Pain (severe 7-10) Last Admin: 01/12/21 21:13 Dose: 2 mg Documented by: Insulin Human Lispro (Insulin Lispro 100 Unit/Ml 3 Ml Kwikpen) 2 - 8 unit SUBCUT TIDMEALS [facility]; Protocol Last Admin: 01/12/21 17:54 Dose: 3 units Documented by: Magnesium Chloride (Magnesium Chloride 64 Mg Tab.Er) 64 mg PO DAILY [facility] Last Admin: 01/12/21 08:03 Dose: 64 mg Documented by: Megestrol Acetate (Megestrol Susp 40 Mg/Ml Ml (240 Ml Bottle)) 80 mg PO QID [facility] Last Admin: 01/12/21 21:17 Dose: 80 mg Documented by: Metformin HCl (Metformin 500 Mg Tab) 500 mg PO BIDMEALS [facility] Last Admin: 01/12/21 17:55 Dose: 500 mg Documented by: Metolazone (Metolazone 2.5 Mg Tab) 2.5 mg PO MOWEFR@0800 [facility] Last Admin: 01/11/21 10:04 Dose: Not Given Documented by: Miscellaneous Information (Remove Patch) 1 ea TRDERM BEDTIME [facility] Last Admin: 01/12/21 21:12 Dose: 1 ea Documented by: Multivitamins/Minerals (Multivitamins With Iron/Calcium/Folic Acid/Minerals Tab) 1 tab PO DAILY [facility] Last Admin: 01/12/21 08:04 Dose: 1 tab Documented by: Naloxone HCl (Naloxone 0.4 Mg/Ml Sdv) 0.4 mg IV ASDIRECTED PRN PRN Reason: RESPIRATORY DEPRESSION Nystatin (Nystatin Crm 30 Gm Tube) 0 gm TOP TID PRN PRN Reason: Rash Polyethylene Glycol (Polyethylene Glycol 3350 Powder 17 Gm Packet) 17 gm PO DAILY [facility] Last Admin: 01/12/21 08:04 Dose: Not Given Documented by: Potassium Chloride (Potassium Chloride 20 Meq Packet) 40 meq PO DAILY [facility] Last Admin: 01/12/21 08:01 Dose: 40 meq Documented by: Propylene Glycol (Peg 400/Propylene Glycol Ophth Soln 15 Ml Bottle) 0 ml EYEBOTH Q4H PRN PRN Reason: Dry Eyes Senna/Docusate Sodium (Docusate Sodium/Sennosides 50-8.6 Mg Tab) 1 tab PO DAILY [facility] Last Admin: 01/12/21 08:04 Dose: Not Given Documented by: Trazodone HCl (Trazodone 50 Mg Tab) 50 mg PO BEDTIME PRN PRN Reason: Insomnia Discontinued Medications Furosemide (Furosemide 80 Mg Tab) 80 mg PO DAILY [facility] Last Admin: 01/11/21 10:05 Dose: Not Given Documented by: Hydromorphone HCl (Hydromorphone 2 Mg Tab) 2 mg PO TID PRN PRN Reason: Pain (severe 7-10) Last Admin: 01/10/21 07:27 Dose: 2 mg Documented by: Lidocaine (Lidocaine 4% 1 Each Patch) 1 each TOP Q24H [facility] Last Admin: 01/12/21 08:07 Dose: 1 each Documented by: Polyethylene Glycol (Polyethylene Glycol 3350 Powder 17 Gm Packet) 17 gm PO DAILY PRN PRN Reason: Constipation Potassium Chloride (Potassium Chloride 20 Meq Packet) 40 meq PO QID [facility] Last Admin: 01/11/21 13:35 Dose: 40 meq Documented by: Simvastatin (Simvastatin 40 Mg Tab) 40 mg PO BEDTIME [facility] Last Admin: 01/09/21 20:32 Dose: 40 mg Documented by: - Exam General: Alert, Oriented, Cooperative Lungs: Clear to Auscultation, Normal Respiratory Effort Cardiovascular: Regular Rate, Regular Rhythm, No Murmurs Extremities: No Pedal Edema Skin: Rash (Legs. Other and faint) - Patient Data Lab Results Last 24 hrs: Laboratory Results - last 24 hr 01/12/21 01/12/21 01/13/21 Range/Units 11:45 17:26 06:59 POC Glucose 265 H D 201 H 194 H (80-116) mg/dL Sepsis Event Note - Evaluation Sepsis Screening Result: No Definite Risk - Problem List & Annotations (1) Pathological fracture of sacral vertebra SNOMED Code(s): 90515855153747431 Code(s): M84.48XA - PATHOLOGICAL FRACTURE, OTHER SITE, INIT ENCNTR FOR FRACTURE Status: Acute Current Visit: No Annotation/Comment:: MRI Lumbar without contrast: Aggressive appearing lesion involving the S1 & S2 segments with ventral epidural soft tissue component causing sever canal & right subarticular recess stenosis. Differential includes metastatic disease & primary neoplasm such as sarcoma. Hematology oncology consultation recommended. (2) Sacral lesion SNOMED Code(s): 05165825 Code(s): M53.3 - SACROCOCCYGEAL DISORDERS, NOT ELSEWHERE CLASSIFIED Status: Acute Current Visit: No (3) Diabetes type 2, controlled SNOMED Code(s): 44803561, 975463270 Code(s): E11.9 - TYPE 2 DIABETES MELLITUS WITHOUT COMPLICATIONS Status: Chronic Current Visit: No (4) History of breast cancer SNOMED Code(s): 827476898 Code(s): Z85.3 - PERSONAL HISTORY OF MALIGNANT NEOPLASM OF BREAST Status: Chronic Current Visit: No (5) History of colon cancer SNOMED Code(s): 642645864 Code(s): Z85.038 - PERSONAL HISTORY OF MALIGNANT NEOPLASM OF LARGE INTESTINE Status: Chronic Current Visit: No (6) History of uterine cancer SNOMED Code(s): 628964299 Code(s): Z85.42 - PERSONAL HISTORY OF MALIGNANT NEOPLASM OF OTH PRT UTERUS Status: Chronic Current Visit: No (7) Obesity SNOMED Code(s): 207532272, 365987307 Code(s): E66.9 - OBESITY, UNSPECIFIED Status: Chronic Current Visit: No Qualifiers: Body mass index: BMI 45.0-49.9 (8) Rash SNOMED Code(s): 348750137, 285782422 Code(s): R21 - RASH AND OTHER NONSPECIFIC SKIN ERUPTION Status: Acute Current Visit: Yes - Problem List Review Problem List Initiated/Reviewed/Updated: Yes - My Orders Last 24 Hours: My Active Orders 01/12/21 09:00 Furosemide [Lasix] 80 mg PO Q48H Potassium Chloride [Klor-Con] 40 meq PO DAILY 01/15/21 06:00 BASIC METABOLIC PANEL,BMP [CHEM] Routine - Plan Plan:: 1. DC the lidocaine patch. If the patient notices that it did help will restarted. 2. For the rash is very faint and looks benign. No treatment at this time. 3. Patient has PET scan tomorrow [place].
[2021-01-13] MEDS: Allopurinol 300 MG Tab PO SCH (08:17)
[2021-01-13] MEDS: Potassium Chloride 20 MEQ Packet PO SCH (08:20)
[2021-01-13] MEDS: Enoxaparin 40 MG/0.4 ML Syringe SUBCUT SCH (21:20)
[2021-01-13] MEDS: Aspirin 81 MG Tab.EC PO SCH (21:20)
[2021-01-13] MEDS: Gabapentin 300 MG Cap PO SCH (21:22)
[2021-01-14] MEDS: Celecoxib 200 MG Cap PO SCH ×3 (03:22→20:16)
[2021-01-14] MEDS: HYDROmorphone 2 MG Tab PO PRN ×3 (05:32→20:15)
[2021-01-14] MEDS: Dexamethasone 4 MG Tab PO SCH ×4 (05:32→20:16)
[2021-01-14] MEDS: Insulin Lispro 100 Unit/ML 3 ML KwikPen SUBCUT SCH ×3 (11:01→17:29)
[2021-01-14] MEDS: Megestrol Susp 40 MG/ML ML (240 ML Bottle) PO SCH ×4 (11:01→21:38)
[2021-01-14] MEDS: metFORMIN 500 MG Tab PO SCH ×2 (11:04→17:29)
[2021-01-14] MEDS: Metolazone 2.5 MG Tab PO SCH (11:21)
[2021-01-14] MEDS: Ferrous Sulfate 325 MG Tab PO SCH (11:21)
[2021-01-14] MEDS: Multivitamins with Iron/Calcium/Folic Acid/Minerals Tab PO SCH (11:21)
[2021-01-14] MEDS: Magnesium Chloride 64 MG Tab.ER PO SCH (11:21)
[2021-01-14] MEDS: Furosemide 80 MG Tab PO SCH (11:21)
[2021-01-14] MEDS: Cholecalciferol (Vitamin D3) 25 MCG Tab PO SCH (11:21)
[2021-01-14] MEDS: Allopurinol 300 MG Tab PO SCH (11:22)
[2021-01-14] MEDS: Polyethylene Glycol 3350 Powder 17 GM Packet PO SCH (11:23)
[2021-01-14] MEDS: Potassium Chloride 20 MEQ Packet PO SCH (11:23)
[2021-01-14] MEDS: Aspirin 81 MG Tab.EC PO SCH (20:15)
[2021-01-14] MEDS: Enoxaparin 40 MG/0.4 ML Syringe SUBCUT SCH (20:16)
[2021-01-14] MEDS: Gabapentin 300 MG Cap PO SCH (20:18)
[2021-01-15] MEDS: HYDROmorphone 2 MG Tab PO PRN (04:00)
--- NOTE | 2021-01-15 08:16 | PCM.PN ---
- General Info Date of Service: 01/15/21 Admission Dx/Problem (Free Text): Patient had a PET scan yesterday. She reports that they told her that there is no new lesions only the buttocks and what they saw before. Patient states when she sits and lies down she is doing pretty good but her pain now is about 5-6/[address] She still taking the Dilaudid and she is on 25 g of fentanyl patient wants to go home today on home health and PT. - Patient Data Vitals - Most Recent: Last Vital Signs Temp 98.7 F 01/15/21 08:00 Pulse 72 01/15/21 08:00 Resp 16 01/15/21 08:00 BP 119/74 01/15/21 08:00 Pulse Ox 92 L 01/15/21 08:00 Weight - Most Recent: 268 lb 4.8 oz I&O - Last 24 Hours: Intake & Output 01/14/21 01/15/21 01/15/21 22:59 06:59 14:59 Intake Total 120 Balance 120 Lab Results Last 24 Hours: Laboratory Results - last 24 hr 01/08/21 01/09/21 01/09/21 Range/Units 17:31 07:54 07:54 Sodium (135-145) mmol/L Potassium (3.5-5.3) mmol/L Chloride (100-110) mmol/L Carbon Dioxide (21-32) mmol/L BUN (7-18) mg/dL Creatinine (0.55-1.02) mg/dL Est Cr Clr Drug Dosing mL/min Estimated GFR (MDRD) (>60) BUN/Creatinine Ratio (9-20) Glucose (80-116) mg/dL POC Glucose 132 H 121 H 121 H (80-116) mg/dL Calcium (8.6-10.2) mg/dL 01/09/21 01/09/21 01/09/21 Range/Units 11:33 11:33 17:29 Sodium (135-145) mmol/L Potassium (3.5-5.3) mmol/L Chloride (100-110) mmol/L Carbon Dioxide (21-32) mmol/L BUN (7-18) mg/dL Creatinine (0.55-1.02) mg/dL Est Cr Clr Drug Dosing mL/min Estimated GFR (MDRD) (>60) BUN/Creatinine Ratio (9-20) Glucose (80-116) mg/dL POC Glucose 149 H 149 H 134 H (80-116) mg/dL Calcium (8.6-10.2) mg/dL 01/09/21 01/10/21 01/10/21 Range/Units 17:29 05:46 05:46 Sodium (135-145) mmol/L Potassium (3.5-5.3) mmol/L Chloride (100-110) mmol/L Carbon Dioxide (21-32) mmol/L BUN (7-18) mg/dL Creatinine (0.55-1.02) mg/dL Est Cr Clr Drug Dosing mL/min Estimated GFR (MDRD) (>60) BUN/Creatinine Ratio (9-20) Glucose (80-116) mg/dL POC Glucose 134 H 135 H 135 H (80-116) mg/dL Calcium (8.6-10.2) mg/dL 01/10/21 01/10/21 01/10/21 Range/Units 11:26 11:26 17:04 Sodium (135-145) mmol/L Potassium (3.5-5.3) mmol/L Chloride (100-110) mmol/L Carbon Dioxide (21-32) mmol/L BUN (7-18) mg/dL Creatinine (0.55-1.02) mg/dL Est Cr Clr Drug Dosing mL/min Estimated GFR (MDRD) (>60) BUN/Creatinine Ratio (9-20) Glucose (80-116) mg/dL POC Glucose 135 H 135 H 123 H (80-116) mg/dL Calcium (8.6-10.2) mg/dL 01/10/21 01/11/21 01/11/21 Range/Units 17:04 06:13 06:13 Sodium (135-145) mmol/L Potassium (3.5-5.3) mmol/L Chloride (100-110) mmol/L Carbon Dioxide (21-32) mmol/L BUN (7-18) mg/dL Creatinine (0.55-1.02) mg/dL Est Cr Clr Drug Dosing mL/min Estimated GFR (MDRD) (>60) BUN/Creatinine Ratio (9-20) Glucose (80-116) mg/dL POC Glucose 123 H 170 H 170 H (80-116) mg/dL Calcium (8.6-10.2) mg/dL 01/11/21 01/11/21 01/11/21 Range/Units 11:43 11:43 16:52 Sodium (135-145) mmol/L Potassium (3.5-5.3) mmol/L Chloride (100-110) mmol/L Carbon Dioxide (21-32) mmol/L BUN (7-18) mg/dL Creatinine (0.55-1.02) mg/dL Est Cr Clr Drug Dosing mL/min Estimated GFR (MDRD) (>60) BUN/Creatinine Ratio (9-20) Glucose (80-116) mg/dL POC Glucose 165 H 165 H 181 H (80-116) mg/dL Calcium (8.6-10.2) mg/dL 01/11/21 01/12/21 01/12/21 Range/Units 16:52 07:11 07:11 Sodium (135-145) mmol/L Potassium (3.5-5.3) mmol/L Chloride (100-110) mmol/L Carbon Dioxide (21-32) mmol/L BUN (7-18) mg/dL Creatinine (0.55-1.02) mg/dL Est Cr Clr Drug Dosing mL/min Estimated GFR (MDRD) (>60) BUN/Creatinine Ratio (9-20) Glucose (80-116) mg/dL POC Glucose 181 H 179 H 179 H (80-116) mg/dL Calcium (8.6-10.2) mg/dL 01/12/21 01/12/21 01/12/21 Range/Units 11:45 11:45 17:26 Sodium (135-145) mmol/L Potassium (3.5-5.3) mmol/L Chloride (100-110) mmol/L Carbon Dioxide (21-32) mmol/L BUN (7-18) mg/dL Creatinine (0.55-1.02) mg/dL Est Cr Clr Drug Dosing mL/min Estimated GFR (MDRD) (>60) BUN/Creatinine Ratio (9-20) Glucose (80-116) mg/dL POC Glucose 265 H D 265 H 201 H (80-116) mg/dL Calcium (8.6-10.2) mg/dL 01/12/21 01/13/21 01/13/21 Range/Units 17:26 06:59 06:59 Sodium (135-145) mmol/L Potassium (3.5-5.3) mmol/L Chloride (100-110) mmol/L Carbon Dioxide (21-32) mmol/L BUN (7-18) mg/dL Creatinine (0.55-1.02) mg/dL Est Cr Clr Drug Dosing mL/min Estimated GFR (MDRD) (>60) BUN/Creatinine Ratio (9-20) Glucose (80-116) mg/dL POC Glucose 201 H 194 H 194 H (80-116) mg/dL Calcium (8.6-10.2) mg/dL 01/13/21 01/13/21 01/13/21 Range/Units 11:36 11:36 17:20 Sodium (135-145) mmol/L Potassium (3.5-5.3) mmol/L Chloride (100-110) mmol/L Carbon Dioxide (21-32) mmol/L BUN (7-18) mg/dL Creatinine (0.55-1.02) mg/dL Est Cr Clr Drug Dosing mL/min Estimated GFR (MDRD) (>60) BUN/Creatinine Ratio (9-20) Glucose (80-116) mg/dL POC Glucose 242 H 242 H 234 H (80-116) mg/dL Calcium (8.6-10.2) mg/dL 01/13/21 01/14/21 01/14/21 Range/Units 17:20 05:43 05:43 Sodium (135-145) mmol/L Potassium (3.5-5.3) mmol/L Chloride (100-110) mmol/L Carbon Dioxide (21-32) mmol/L BUN (7-18) mg/dL Creatinine (0.55-1.02) mg/dL Est Cr Clr Drug Dosing mL/min Estimated GFR (MDRD) (>60) BUN/Creatinine Ratio (9-20) Glucose (80-116) mg/dL POC Glucose 234 H 214 H 214 H (80-116) mg/dL Calcium (8.6-10.2) mg/dL 01/14/21 01/14/21 01/15/21 Range/Units 11:28 17:12 06:10 Sodium 139 (135-145) mmol/L Potassium 3.5 (3.5-5.3) mmol/L Chloride 101 (100-110) mmol/L Carbon Dioxide 25 (21-32) mmol/L BUN 49 H D (7-18) mg/dL Creatinine 1.3 H (0.55-1.02) mg/dL Est Cr Clr Drug Dosing 31.23 mL/min Estimated GFR (MDRD) 39 L (>60) BUN/Creatinine Ratio 37.7 H (9-20) Glucose 241 H D (80-116) mg/dL POC Glucose 273 H 280 H (80-116) mg/dL Calcium 8.6 (8.6-10.2) mg/dL 01/15/21 Range/Units 06:20 Sodium (135-145) mmol/L Potassium (3.5-5.3) mmol/L Chloride (100-110) mmol/L Carbon Dioxide (21-32) mmol/L BUN (7-18) mg/dL Creatinine (0.55-1.02) mg/dL Est Cr Clr Drug Dosing mL/min Estimated GFR (MDRD) (>60) BUN/Creatinine Ratio (9-20) Glucose (80-116) mg/dL POC Glucose 236 H (80-116) mg/dL Calcium (8.6-10.2) mg/dL Med Orders - Current: Current Medications Acetaminophen (Acetaminophen 650 Mg Tab.Er) 650 mg PO Q8H PRN PRN Reason: Pain (mild 1-3) Allopurinol (Allopurinol 300 Mg Tab) 300 mg PO DAILY PENDING SALE TO [facility] Last Admin: 01/14/21 11:22 Dose: 300 mg Documented by: Aspirin (Aspirin 81 Mg Tab.Ec) 81 mg PO BEDTIME PENDING SALE TO [facility] Last Admin: 01/14/21 20:15 Dose: 81 mg Documented by: Celecoxib (Celecoxib 200 Mg Cap) 200 mg PO BID PENDING SALE TO [facility] Last Admin: 01/14/21 20:16 Dose: 200 mg Documented by: Cholecalciferol (Cholecalciferol (Vitamin D3) 25 Mcg Tab) 50 mcg PO DAILY PENDING SALE TO [facility] Last Admin: 01/14/21 11:21 Dose: 50 mcg Documented by: Dexamethasone (Dexamethasone 4 Mg Tab) 4 mg PO TID PENDING SALE TO [facility] Last Admin: 01/14/21 20:16 Dose: 4 mg Documented by: Enoxaparin Sodium (Enoxaparin 40 Mg/0.4 Ml Syringe) 40 mg SUBCUT Q24H PENDING SALE TO [facility] Last Admin: 01/14/21 20:16 Dose: 40 mg Documented by: Fentanyl (Fentanyl 25 Mcg/Hr Transdermal Patch) 25 mcg TRDERM Q72H PENDING SALE TO [facility] Last Admin: 01/12/21 17:58 Dose: 25 mcg Documented by: Ferrous Sulfate (Ferrous Sulfate 325 Mg Tab) 325 mg PO DAILY PENDING SALE TO [facility] Last Admin: 01/14/21 11:21 Dose: 325 mg Documented by: Furosemide (Furosemide 80 Mg Tab) 80 mg PO Q48H PENDING SALE TO [facility] Last Admin: 01/14/21 11:21 Dose: 80 mg Documented by: Gabapentin (Gabapentin 300 Mg Cap) 300 mg PO BEDTIME PENDING SALE TO [facility] Last Admin: 01/14/21 20:18 Dose: 300 mg Documented by: Hydromorphone HCl (Hydromorphone 2 Mg Tab) 2 mg PO Q4H PRN PRN Reason: Pain (severe 7-10) Last Admin: 01/15/21 04:00 Dose: 2 mg Documented by: Insulin Human Lispro (Insulin Lispro 100 Unit/Ml 3 Ml Kwikpen) 2 - 8 unit SUBCUT TIDMEALS PENDING SALE TO [facility]; Protocol Last Admin: 01/14/21 17:29 Dose: 5 units Documented by: Magnesium Chloride (Magnesium Chloride 64 Mg Tab.Er) 64 mg PO DAILY PENDING SALE TO [facility] Last Admin: 01/14/21 11:21 Dose: 64 mg Documented by: Megestrol Acetate (Megestrol Susp 40 Mg/Ml Ml (240 Ml Bottle)) 80 mg PO QID PENDING SALE TO [facility] Last Admin: 01/14/21 21:38 Dose: 80 mg Documented by: Metformin HCl (Metformin 500 Mg Tab) 500 mg PO BIDMEALS PENDING SALE TO [facility] Last Admin: 01/14/21 17:29 Dose: 500 mg Documented by: Metolazone (Metolazone 2.5 Mg Tab) 2.5 mg PO MOWEFR@0800 PENDING SALE TO [facility] Last Admin: 01/14/21 11:21 Dose: 2.5 mg Documented by: Multivitamins/Minerals (Multivitamins With Iron/Calcium/Folic Acid/Minerals Tab) 1 tab PO DAILY PENDING SALE TO [facility] Last Admin: 01/14/21 11:21 Dose: 1 tab Documented by: Naloxone HCl (Naloxone 0.4 Mg/Ml Sdv) 0.4 mg IV ASDIRECTED PRN PRN Reason: RESPIRATORY DEPRESSION Nystatin (Nystatin Crm 30 Gm Tube) 0 gm TOP TID PRN PRN Reason: Rash Polyethylene Glycol (Polyethylene Glycol 3350 Powder 17 Gm Packet) 17 gm PO DAILY PENDING SALE TO [facility] Last Admin: 01/14/21 11:23 Dose: 17 gm Documented by: Potassium Chloride (Potassium Chloride 20 Meq Packet) 40 meq PO DAILY PENDING SALE TO [facility] Last Admin: 01/14/21 11:23 Dose: 40 meq Documented by: Propylene Glycol (Peg 400/Propylene Glycol Ophth Soln 15 Ml Bottle) 0 ml EYEBOTH Q4H PRN PRN Reason: Dry Eyes Senna/Docusate Sodium (Docusate Sodium/Sennosides 50-8.6 Mg Tab) 1 tab PO DAILY PENDING SALE TO [facility] Last Admin: 01/14/21 11:21 Dose: 1 tab Documented by: Trazodone HCl (Trazodone 50 Mg Tab) 50 mg PO BEDTIME PRN PRN Reason: Insomnia Discontinued Medications Furosemide (Furosemide 80 Mg Tab) 80 mg PO DAILY PENDING SALE TO [facility] Last Admin: 01/11/21 10:05 Dose: Not Given Documented by: Hydromorphone HCl (Hydromorphone 2 Mg Tab) 2 mg PO TID PRN PRN Reason: Pain (severe 7-10) Last Admin: 01/10/21 07:27 Dose: 2 mg Documented by: Lidocaine (Lidocaine 4% 1 Each Patch) 1 each TOP Q24H PENDING SALE TO [facility] Last Admin: 01/13/21 08:15 Dose: 1 each Documented by: Miscellaneous Information (Remove Patch) 1 ea TRDERM BEDTIME PENDING SALE TO [facility] Last Admin: 01/13/21 21:24 Dose: Not Given Documented by: Polyethylene Glycol (Polyethylene Glycol 3350 Powder 17 Gm Packet) 17 gm PO DAILY PRN PRN Reason: Constipation Potassium Chloride (Potassium Chloride 20 Meq Packet) 40 meq PO QID PENDING SALE TO [facility] Last Admin: 01/11/21 13:35 Dose: 40 meq Documented by: Simvastatin (Simvastatin 40 Mg Tab) 40 mg PO BEDTIME PENDING SALE TO [facility] Last Admin: 01/09/21 20:32 Dose: 40 mg Documented by: - Exam General: Alert, Oriented, Cooperative Lungs: Normal Respiratory Effort - Patient Data Lab Results Last 24 hrs: Laboratory Results - last 24 hr 01/08/21 01/09/21 01/09/21 Range/Units 17:31 07:54 07:54 Sodium (135-145) mmol/L Potassium (3.5-5.3) mmol/L Chloride (100-110) mmol/L Carbon Dioxide (21-32) mmol/L BUN (7-18) mg/dL Creatinine (0.55-1.02) mg/dL Est Cr Clr Drug Dosing mL/min Estimated GFR (MDRD) (>60) BUN/Creatinine Ratio (9-20) Glucose (80-116) mg/dL POC Glucose 132 H 121 H 121 H (80-116) mg/dL Calcium (8.6-10.2) mg/dL 01/09/21 01/09/21 01/09/21 Range/Units 11:33 11:33 17:29 Sodium (135-145) mmol/L Potassium (3.5-5.3) mmol/L Chloride (100-110) mmol/L Carbon Dioxide (21-32) mmol/L BUN (7-18) mg/dL Creatinine (0.55-1.02) mg/dL Est Cr Clr Drug Dosing mL/min Estimated GFR (MDRD) (>60) BUN/Creatinine Ratio (9-20) Glucose (80-116) mg/dL POC Glucose 149 H 149 H 134 H (80-116) mg/dL Calcium (8.6-10.2) mg/dL 01/09/21 01/10/21 01/10/21 Range/Units 17:29 05:46 05:46 Sodium (135-145) mmol/L Potassium (3.5-5.3) mmol/L Chloride (100-110) mmol/L Carbon Dioxide (21-32) mmol/L BUN (7-18) mg/dL Creatinine (0.55-1.02) mg/dL Est Cr Clr Drug Dosing mL/min Estimated GFR (MDRD) (>60) BUN/Creatinine Ratio (9-20) Glucose (80-116) mg/dL POC Glucose 134 H 135 H 135 H (80-116) mg/dL Calcium (8.6-10.2) mg/dL 01/10/21 01/10/21 01/10/21 Range/Units 11:26 11:26 17:04 Sodium (135-145) mmol/L Potassium (3.5-5.3) mmol/L Chloride (100-110) mmol/L Carbon Dioxide (21-32) mmol/L BUN (7-18) mg/dL Creatinine (0.55-1.02) mg/dL Est Cr Clr Drug Dosing mL/min Estimated GFR (MDRD) (>60) BUN/Creatinine Ratio (9-20) Glucose (80-116) mg/dL POC Glucose 135 H 135 H 123 H (80-116) mg/dL Calcium (8.6-10.2) mg/dL 01/10/21 01/11/21 01/11/21 Range/Units 17:04 06:13 06:13 Sodium (135-145) mmol/L Potassium (3.5-5.3) mmol/L Chloride (100-110) mmol/L Carbon Dioxide (21-32) mmol/L BUN (7-18) mg/dL Creatinine (0.55-1.02) mg/dL Est Cr Clr Drug Dosing mL/min Estimated GFR (MDRD) (>60) BUN/Creatinine Ratio (9-20) Glucose (80-116) mg/dL POC Glucose 123 H 170 H 170 H (80-116) mg/dL Calcium (8.6-10.2) mg/dL 01/11/21 01/11/21 01/11/21 Range/Units 11:43 11:43 16:52 Sodium (135-145) mmol/L Potassium (3.5-5.3) mmol/L Chloride (100-110) mmol/L Carbon Dioxide (21-32) mmol/L BUN (7-18) mg/dL Creatinine (0.55-1.02) mg/dL Est Cr Clr Drug Dosing mL/min Estimated GFR (MDRD) (>60) BUN/Creatinine Ratio (9-20) Glucose (80-116) mg/dL POC Glucose 165 H 165 H 181 H (80-116) mg/dL Calcium (8.6-10.2) mg/dL 01/11/21 01/12/21 01/12/21 Range/Units 16:52 07:11 07:11 Sodium (135-145) mmol/L Potassium (3.5-5.3) mmol/L Chloride (100-110) mmol/L Carbon Dioxide (21-32) mmol/L BUN (7-18) mg/dL Creatinine (0.55-1.02) mg/dL Est Cr Clr Drug Dosing mL/min Estimated GFR (MDRD) (>60) BUN/Creatinine Ratio (9-20) Glucose (80-116) mg/dL POC Glucose 181 H 179 H 179 H (80-116) mg/dL Calcium (8.6-10.2) mg/dL 01/12/21 01/12/21 01/12/21 Range/Units 11:45 11:45 17:26 Sodium (135-145) mmol/L Potassium (3.5-5.3) mmol/L Chloride (100-110) mmol/L Carbon Dioxide (21-32) mmol/L BUN (7-18) mg/dL Creatinine (0.55-1.02) mg/dL Est Cr Clr Drug Dosing mL/min Estimated GFR (MDRD) (>60) BUN/Creatinine Ratio (9-20) Glucose (80-116) mg/dL POC Glucose 265 H D 265 H 201 H (80-116) mg/dL Calcium (8.6-10.2) mg/dL 01/12/21 01/13/21 01/13/21 Range/Units 17:26 06:59 06:59 Sodium (135-145) mmol/L Potassium (3.5-5.3) mmol/L Chloride (100-110) mmol/L Carbon Dioxide (21-32) mmol/L BUN (7-18) mg/dL Creatinine (0.55-1.02) mg/dL Est Cr Clr Drug Dosing mL/min Estimated GFR (MDRD) (>60) BUN/Creatinine Ratio (9-20) Glucose (80-116) mg/dL POC Glucose 201 H 194 H 194 H (80-116) mg/dL Calcium (8.6-10.2) mg/dL 01/13/21 01/13/21 01/13/21 Range/Units 11:36 11:36 17:20 Sodium (135-145) mmol/L Potassium (3.5-5.3) mmol/L Chloride (100-110) mmol/L Carbon Dioxide (21-32) mmol/L BUN (7-18) mg/dL Creatinine (0.55-1.02) mg/dL Est Cr Clr Drug Dosing mL/min Estimated GFR (MDRD) (>60) BUN/Creatinine Ratio (9-20) Glucose (80-116) mg/dL POC Glucose 242 H 242 H 234 H (80-116) mg/dL Calcium (8.6-10.2) mg/dL 01/13/21 01/14/21 01/14/21 Range/Units 17:20 05:43 05:43 Sodium (135-145) mmol/L Potassium (3.5-5.3) mmol/L Chloride (100-110) mmol/L Carbon Dioxide (21-32) mmol/L BUN (7-18) mg/dL Creatinine (0.55-1.02) mg/dL Est Cr Clr Drug Dosing mL/min Estimated GFR (MDRD) (>60) BUN/Creatinine Ratio (9-20) Glucose (80-116) mg/dL POC Glucose 234 H 214 H 214 H (80-116) mg/dL Calcium (8.6-10.2) mg/dL 01/14/21 01/14/21 01/15/21 Range/Units 11:28 17:12 06:10 Sodium 139 (135-145) mmol/L Potassium 3.5 (3.5-5.3) mmol/L Chloride 101 (100-110) mmol/L Carbon Dioxide 25 (21-32) mmol/L BUN 49 H D (7-18) mg/dL Creatinine 1.3 H (0.55-1.02) mg/dL Est Cr Clr Drug Dosing 31.23 mL/min Estimated GFR (MDRD) 39 L (>60) BUN/Creatinine Ratio 37.7 H (9-20) Glucose 241 H D (80-116) mg/dL POC Glucose 273 H 280 H (80-116) mg/dL Calcium 8.6 (8.6-10.2) mg/dL 01/15/21 Range/Units 06:20 Sodium (135-145) mmol/L Potassium (3.5-5.3) mmol/L Chloride (100-110) mmol/L Carbon Dioxide (21-32) mmol/L BUN (7-18) mg/dL Creatinine (0.55-1.02) mg/dL Est Cr Clr Drug Dosing mL/min Estimated GFR (MDRD) (>60) BUN/Creatinine Ratio (9-20) Glucose (80-116) mg/dL POC Glucose 236 H (80-116) mg/dL Calcium (8.6-10.2) mg/dL Result Diagrams: 01/15/21 06:10 Sepsis Event Note - Evaluation Sepsis Screening Result: No Definite Risk - Focused Exam Vital Signs: Vital Signs Temp Pulse Resp BP Pulse Ox 01/15/21 08:00 98.7 F 72 16 119/74 92 L - Problem List & Annotations (1) Pathological fracture of sacral vertebra SNOMED Code(s): 77713774980662583 Code(s): M84.48XA - PATHOLOGICAL FRACTURE, OTHER SITE, INIT ENCNTR FOR FRACTURE Status: Acute Current Visit: No Annotation/Comment:: MRI Lumbar w ithout contrast: Aggressive appearing lesion involving the S1 & S2 segments with ventral epidural soft tissue component causing sever canal & right subarticular recess stenosis. Differential includes metastatic disease & primary neoplasm such as sarcoma. Hematology oncology consultation recommended. (2) Sacral lesion SNOMED Code(s): 02997828 Code(s): M53.3 - SACROCOCCYGEAL DISORDERS, NOT ELSEWHERE CLASSIFIED Status: Acute Current Visit: No (3) Diabetes type 2, controlled SNOMED Code(s): 04792182, 090863750 Code(s): E11.9 - TYPE 2 DIABETES MELLITUS WITHOUT COMPLICATIONS Status: Chronic Current Visit: No (4) History of breast cancer SNOMED Code(s): 350107277 Code(s): Z85.3 - PERSONAL HISTORY OF MALIGNANT NEOPLASM OF BREAST Status: Chronic Current Visit: No (5) History of colon cancer SNOMED Code(s): 461533510 Code(s): Z85.038 - PERSONAL HISTORY OF MALIGNANT NEOPLASM OF LARGE INTESTINE Status: Chronic Current Visit: No (6) History of uterine cancer SNOMED Code(s): 459576194 Code(s): Z85.42 - PERSONAL HISTORY OF MALIGNANT NEOPLASM OF OTH PRT UTERUS Status: Chronic Current Visit: No (7) Obesity SNOMED Code(s): 147837310, 159448737 Code(s): E66.9 - OBESITY, UNSPECIFIED Status: Chronic Current Visit: No Qualifiers: Body mass index: BMI 45.0-49.9 (8) Rash SNOMED Code(s): 373784807, 698619779 Code(s): R21 - RASH AND OTHER NONSPECIFIC SKIN ERUPTION Status: Acute Current Visit: Yes - Problem List Review Problem List Initiated/Reviewed/Updated: Yes - Assessment Assessment:: DC to home on PT/OT/home health. Discuss pain medication I'll increase the fentanyl patch and use hydrocodone when necessary. I told the patient if her pain is not controlled she can send me in my chart message and I will adjusted. Otherwise I'll see her back in 1 week. She is my patient. - Plan Plan:: 1. DC the lidocaine patch. If the patient notices that it did help will restarted. 2. For the rash is very faint and looks benign. No treatment at this time. 3. Patient has PET scan tomorrow [facility].
[2021-01-15] MEDS: Celecoxib 200 MG Cap PO SCH (09:09)
[2021-01-15] MEDS: Dexamethasone 4 MG Tab PO SCH ×2 (09:09→13:00)
[2021-01-15] MEDS: metFORMIN 500 MG Tab PO SCH (09:09)
[2021-01-15] MEDS: Potassium Chloride 20 MEQ Packet PO SCH (09:10)
[2021-01-15] MEDS: Ferrous Sulfate 325 MG Tab PO SCH (09:10)
[2021-01-15] MEDS: Magnesium Chloride 64 MG Tab.ER PO SCH (09:11)
[2021-01-15] MEDS: Megestrol Susp 40 MG/ML ML (240 ML Bottle) PO SCH ×2 (09:13→12:57)
[2021-01-15] MEDS: Polyethylene Glycol 3350 Powder 17 GM Packet PO SCH (09:14)
[2021-01-15] MEDS: Multivitamins with Iron/Calcium/Folic Acid/Minerals Tab PO SCH (09:16)
[2021-01-15] MEDS: Cholecalciferol (Vitamin D3) 25 MCG Tab PO SCH (09:16)
[2021-01-15] MEDS: Allopurinol 300 MG Tab PO SCH (09:17)
[2021-01-15] MEDS: Insulin Lispro 100 Unit/ML 3 ML KwikPen SUBCUT SCH ×2 (09:20→11:59)
--- NOTE | 2021-01-16 10:42 | PCM.DCSUM1 ---
Discharge Summary - Hospital Course Free Text/Narrative:: Hospital course-patient had PT/OT. Had immense pain when she stood up. Better when she was sitting and lying. She is on 25 g of fentanyl and taken.wanted every 4 hours. Oncology started dexamethasone and I tried some lidocaine patches.. The dexamethasone really help so I stopped the lidocaine patches. Patient had a PET scan of [place] that only showed the tumor the sacrum. She elected to go home. Patient increased her Charlee patch to 37 g and then night stopped allotted started hydrocodone May 03 one every 6 hours p.m. for pain. 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 Pathologic fracture of the sacrum with a tumor in excruciating pain. 2. Obesity. 3. Diabetes. 4.: CA, breast CA, endometrial CA Primary Care Physician: Lg Duenas MD Skilled Need: 1. PT/OT. 2. Medication management, home safety - Discharge Diagnosis/Problem(s) (1) Pathological fracture of sacral vertebra SNOMED Code(s): 93433951608880484 ICD Code: M84.48XA - PATHOLOGICAL FRACTURE, OTHER SITE, INIT ENCNTR FOR FRACTURE Status: Acute Problem Details: MRI Lumbar without contrast: Aggressive appearing lesion involving the S1 & S2 segments with ventral epidural soft tissue component causing sever canal & right subarticular recess stenosis. Differential includes metastatic disease & primary neoplasm such as sarcoma. Hematology oncology consultation recommended. (2) Sacral lesion SNOMED Code(s): 13697152 ICD Code: M53.3 - SACROCOCCYGEAL DISORDERS, NOT ELSEWHERE CLASSIFIED Status: Acute (3) Diabetes type 2, controlled SNOMED Code(s): 60896086, 626255420 ICD Code: E11.9 - TYPE 2 DIABETES MELLITUS WITHOUT COMPLICATIONS Status: Chronic (4) History of breast cancer SNOMED Code(s): 990502746 ICD Code: Z85.3 - PERSONAL HISTORY OF MALIGNANT NEOPLASM OF BREAST Status: Chronic (5) History of colon cancer SNOMED Code(s): 377536757 ICD Code: Z85.038 - PERSONAL HISTORY OF MALIGNANT NEOPLASM OF LARGE INTESTINE Status: Chronic (6) History of uterine cancer SNOMED Code(s): 357995075 ICD Code: Z85.42 - PERSONAL HISTORY OF MALIGNANT NEOPLASM OF OTH PRT UTERUS Status: Chronic (7) Obesity SNOMED Code(s): 455131706, 774461489 ICD Code: E66.9 - OBESITY, UNSPECIFIED Status: Chronic Qualifiers: Body mass index: BMI 45.0-49.9 (8) Rash SNOMED Code(s): 052707425, 504386683 ICD Code: R21 - RASH AND OTHER NONSPECIFIC SKIN ERUPTION Status: Acute - Patient Summary/Data Consults: Consultations 01/08/21 18:41 OT Evaluation and Treatment [CONS] Routine Please Evaluate and Treat. OT Reason for Consult: Weakness This query below is only for informational purposes and is not editable. Admission Diagnosis/Problem: Rehabilitation therapy PT Evaluation and Treatment [CONS] Routine Please Evaluate and Treat. PT Reason for Consult: Weakness This query below is only for informational purposes and is not editable. Admission Diagnosis/Problem: Rehabilitation therapy - Patient Instructions Diet: Diabetic Diet Activity: As Tolerated Driving: May Drive Today Showering/Bathing: May Shower Notify Provider of: Increased Pain Other/Special Instructions: 1. Recheck with Dr. Duenas in 1 week. 2. recheck with oncology in the middle of January. Patient has appointment. 3. Home health/PT/OT. - Discharge Plan Prescriptions/Med Rec: dexAMETHasone [Dexamethasone] 4 mg PO TID #90 tablet fentaNYL [Duragesic] 1 patch TD Q72H #3 patch fentaNYL [Duragesic] 25 mcg TRDERM Q72H #3 patch Hydrocodone/Acetaminophen [Hydrocodon-Acetaminophn 10-325] 1 each PO Q6H PRN #120 tablet PRN Reason: Pain Home Medications: Home Meds Multivit-Min/Iron/Folic/Lutein [Centrum Silver Women Tablet] 1 tab PO DAILY 10/16/19 [History] Simvastatin 40 mg PO BEDTIME 10/16/19 [History] allopurinoL [Zyloprim] 300 mg PO DAILY 10/16/19 [History] metOLazone [Metolazone] 2.5 mg PO MOWEFR@0800 10/16/19 [History] polyethylene glycoL 3350 [MiraLAX] 17 gm PO DAILY PRN 10/16/19 [History] Ferrous Sulfate 325 mg PO DAILY 10/17/19 [History] Furosemide 80 mg PO DAILY 07/23/20 [History] Aspirin [Halfprin] 81 mg PO BEDTIME 12/20/20 [History] Cholecalciferol (Vitamin D3) [Vitamin D3] 2,000 unit PO DAILY 12/20/20 [History] Nystatin [Nystatin Crm] 1 applic TOP TID PRN 12/20/20 [History] PEG 400/Propylene Glycol [Systane Lubricant] 1 drop EYEBOTH Q4H PRN 12/20/20 [History] metFORMIN [Glucophage] 500 mg PO BIDMEALS 12/20/20 [History] Celecoxib [CeleBREX] 200 mg PO BID 01/08/21 [History] Insulin Aspart [NovoLOG] 2 - 8 unit SQ TIDMEALS 01/08/21 [History] Magnesium Chloride [Mag Delay] 64 mg PO DAILY 01/08/21 [History] Megestrol [Megace 40 MG/ML Susp] 80 mg PO QID 01/08/21 [History] Naloxone HCl [Narcan] 4 mg NS ASDIRECTED 01/08/21 [History] Potassium Chloride 40 meq PO QID 01/08/21 [History] fentaNYL [Fentanyl] 25 mcg TD Q72H 01/08/21 [History] traZODone 50 mg PO BEDTIME PRN 01/08/21 [History] Dextrose [Glucose] 16 gm PO ONETIME PRN 01/09/21 [History] Hydrocodone/Acetaminophen [Hydrocodon-Acetaminophn 10-325] 1 each PO Q6H PRN #120 tablet 01/15/21 [Rx] dexAMETHasone [Dexamethasone] 4 mg PO TID #90 tablet 01/15/21 [Rx] fentaNYL [Duragesic] 1 patch TD Q72H #3 patch 01/15/21 [Rx] fentaNYL [Duragesic] 25 mcg TRDERM Q72H #3 patch 01/15/21 [Rx] Patient Handouts: Acetaminophen; Hydrocodone tablets or capsules, Fentanyl skin patch, Dexamethasone tablets - Discharge Summary/Plan Comment DC Time >30 min.: No - Patient Data Vitals - Most Recent: Last Vital Signs Temp 98.7 F 01/15/21 08:00 Pulse 72 01/15/21 08:00 Resp 16 01/15/21 08:00 BP 119/74 01/15/21 08:00 Pulse Ox 92 L 01/15/21 08:00 Weight - Most Recent: 268 lb 4.8 oz Lab Results - Last 24 hrs: Laboratory Results - last 24 hr 01/15/21 01/15/21 Range/Units 11:24 11:50 POC Glucose 245 H (80-116) mg/dL SARS-CoV-2 RNA (LAXMI) Negative (NEGATIVE) Med Orders - Current: Current Medications Discontinued Medications Acetaminophen (Acetaminophen 650 Mg Tab.Er) 650 mg PO Q8H PRN PRN Reason: Pain (mild 1-3) Allopurinol (Allopurinol 300 Mg Tab) 300 mg PO DAILY [facility] Last Admin: 01/15/21 09:17 Dose: 300 mg Documented by: Aspirin (Aspirin 81 Mg Tab.Ec) 81 mg PO BEDTIME [facility] Last Admin: 01/14/21 20:15 Dose: 81 mg Documented by: Celecoxib (Celecoxib 200 Mg Cap) 200 mg PO BID [facility] Last Admin: 01/15/21 09:09 Dose: 200 mg Documented by: Cholecalciferol (Cholecalciferol (Vitamin D3) 25 Mcg Tab) 50 mcg PO DAILY [facility] Last Admin: 01/15/21 09:16 Dose: 50 mcg Documented by: Dexamethasone (Dexamethasone 4 Mg Tab) 4 mg PO TID [facility] Last Admin: 01/15/21 13:00 Dose: 4 mg Documented by: Enoxaparin Sodium (Enoxaparin 40 Mg/0.4 Ml Syringe) 40 mg SUBCUT Q24H [facility] Last Admin: 01/14/21 20:16 Dose: 40 mg Documented by: Fentanyl (Fentanyl 25 Mcg/Hr Transdermal Patch) 25 mcg TRDERM Q72H [facility] Last Admin: 01/12/21 17:58 Dose: 25 mcg Documented by: Ferrous Sulfate (Ferrous Sulfate 325 Mg Tab) 325 mg PO DAILY [facility] Last Admin: 01/15/21 09:10 Dose: 325 mg Documented by: Furosemide (Furosemide 80 Mg Tab) 80 mg PO DAILY [facility] Last Admin: 01/11/21 10:05 Dose: Not Given Documented by: Furosemide (Furosemide 80 Mg Tab) 80 mg PO Q48H [facility] Last Admin: 01/14/21 11:21 Dose: 80 mg Documented by: Gabapentin (Gabapentin 300 Mg Cap) 300 mg PO BEDTIME [facility] Last Admin: 01/14/21 20:18 Dose: 300 mg Documented by: Hydromorphone HCl (Hydromorphone 2 Mg Tab) 2 mg PO TID PRN PRN Reason: Pain (severe 7-10) Last Admin: 01/10/21 07:27 Dose: 2 mg Documented by: Hydromorphone HCl (Hydromorphone 2 Mg Tab) 2 mg PO Q4H PRN PRN Reason: Pain (severe 7-10) Last Admin: 01/15/21 04:00 Dose: 2 mg Documented by: Insulin Human Lispro (Insulin Lispro 100 Unit/Ml 3 Ml Kwikpen) 2 - 8 unit SUBCUT TIDMEALS [facility]; Protocol Last Admin: 01/15/21 11:59 Dose: 3 units Documented by: Insulin Human Lispro (Insulin Lispro 100 Unit/Ml 3 Ml Kwikpen) 300 unit SUBCUT .STK-MED ONE Stop: 01/11/21 08:33 Lidocaine (Lidocaine 4% 1 Each Patch) 1 each TOP Q24H [facility] Last Admin: 01/13/21 08:15 Dose: 1 each Documented by: Magnesium Chloride (Magnesium Chloride 64 Mg Tab.Er) 64 mg PO DAILY [facility] Last Admin: 01/15/21 09:11 Dose: 64 mg Documented by: Megestrol Acetate (Megestrol Susp 40 Mg/Ml Ml (240 Ml Bottle)) 80 mg PO QID [facility] Last Admin: 01/15/21 12:57 Dose: 80 mg Documented by: Metformin HCl (Metformin 500 Mg Tab) 500 mg PO BIDMEALS [facility] Last Admin: 01/15/21 09:09 Dose: 500 mg Documented by: Metolazone (Metolazone 2.5 Mg Tab) 2.5 mg PO MOWEFR@0800 [facility] Last Admin: 01/14/21 11:21 Dose: 2.5 mg Documented by: Miscellaneous Information (Remove Patch) 1 ea TRDERM BEDTIME [facility] Last Admin: 01/13/21 21:24 Dose: Not Given Documented by: Multivitamins/Minerals (Multivitamins With Iron/Calcium/Folic Acid/Minerals Tab) 1 tab PO DAILY [facility] Last Admin: 01/15/21 09:16 Dose: 1 tab Documented by: Naloxone HCl (Naloxone 0.4 Mg/Ml Sdv) 0.4 mg IV ASDIRECTED PRN PRN Reason: RESPIRATORY DEPRESSION Nystatin (Nystatin Crm 30 Gm Tube) 0 gm TOP TID PRN PRN Reason: Rash Polyethylene Glycol (Polyethylene Glycol 3350 Powder 17 Gm Packet) 17 gm PO DAILY PRN PRN Reason: Constipation Polyethylene Glycol (Polyethylene Glycol 3350 Powder 17 Gm Packet) 17 gm PO DAILY [facility] Last Admin: 01/15/21 09:14 Dose: 17 gm Documented by: Potassium Chloride (Potassium Chloride 20 Meq Packet) 40 meq PO QID [facility] Last Admin: 01/11/21 13:35 Dose: 40 meq Documented by: Potassium Chloride (Potassium Chloride 20 Meq Packet) 40 meq PO DAILY [facility] Last Admin: 01/15/21 09:10 Dose: 40 meq Documented by: Propylene Glycol (Peg 400/Propylene Glycol Ophth Soln 15 Ml Bottle) 0 ml EYEBOTH Q4H PRN PRN Reason: Dry Eyes Senna/Docusate Sodium (Docusate Sodium/Sennosides 50-8.6 Mg Tab) 1 tab PO DAILY [facility] Last Admin: 01/15/21 09:16 Dose: Not Given Documented by: Simvastatin (Simvastatin 40 Mg Tab) 40 mg PO BEDTIME [facility] Last Admin: 01/09/21 20:32 Dose: 40 mg Documented by: Trazodone HCl (Trazodone 50 Mg Tab) 50 mg PO BEDTIME PRN PRN Reason: Insomnia
== END 2021-01-15 13:50 | disposition home health service (06) | DRG 948 ==
LOC: FB.MS 14:37
PROVIDERS: ADMIT Student in an Organized Health Care Education/Training Program; ATTEND Family Medicine
DX: R53.1 Weakness (principal); M84.48XA Pathological fracture, other site, initial encounter for fracture; Z68.42 Body mass index [BMI] 45.0-49.9, adult; M53.3 Sacrococcygeal disorders, not elsewhere classified; E66.9 Obesity, unspecified; R21 Rash and other nonspecific skin eruption; Z20.822 Contact with and (suspected) exposure to COVID-19; E78.00 Pure hypercholesterolemia, unspecified; R32 Unspecified urinary incontinence; M19.90 Unspecified osteoarthritis, unspecified site; E11.42 Type 2 diabetes mellitus with diabetic polyneuropathy; E03.9 Hypothyroidism, unspecified; Z96.653 Presence of artificial knee joint, bilateral; K59.03 Drug induced constipation; T40.2X5A Adverse effect of other opioids, initial encounter; M54.5 Low back pain; G62.0 Drug-induced polyneuropathy; T45.1X5A Adverse effect of antineoplastic and immunosuppressive drugs, initial encounter; M10.9 Gout, unspecified; Z85.3 Personal history of malignant neoplasm of breast; Z85.038 Personal history of other malignant neoplasm of large intestine; Z85.42 Personal history of malignant neoplasm of other parts of uterus; Z88.1 Allergy status to other antibiotic agents; Z88.5 Allergy status to narcotic agent; Z79.82 Long term (current) use of aspirin; Z79.4 Long term (current) use of insulin; Z90.710 Acquired absence of both cervix and uterus
CPT/HCPCS: 36415; 80048; 82947; 97110-GO; 97116-GP; 97161-GP; 97165-GO; 97530-GO; 97530-GP; 97535-GO; A9270-GY; J1650; J1815; J8540; U0002

== ENCOUNTER 2021-01-23 21:29 | Observation (INO) | payer MEDICARE, BC ==
[2021-01-23] MEDS ORDERED: Ketorolac 30 MG/ML SDV IVPUSH PRN (21:38)
[2021-01-23] MEDS ORDERED: HYDROmorphone 2 MG/ML SDV IVPUSH PRN (21:38)
--- NOTE | 2021-01-23 21:47 | EDM.PDOC ---
ED HPI GENERAL MEDICAL PROBLEM - General Time Seen by Provider: 01/23/21 21:42 Source of Information: Reports: Patient, Family History Limitations: Reports: No Limitations - History of Present Illness INITIAL COMMENTS - FREE TEXT/NARRATIVE: 81 yo female with nausea ,feeling poorly for the last 2-3 days. She was recently discharged from Swing Bed,having spent 1 week for rehab,after a 10 day stay in [place] with Metastatic uterine cancer to the sacrum. The pain is uncontrolled ,worse on the left leg.She also has DM 2. - Related Data Allergies Allergy/AdvReac Type Severity Reaction Status Date / Time cephalexin [From Keflex] Allergy Hives Verified 01/08/21 16:06 oxycodone [From Tylox] Allergy Shortness Verified 01/08/21 16:06 of Breath Home Meds: Home Meds Multivit-Min/Iron/Folic/Lutein [Centrum Silver Women Tablet] 1 tab PO DAILY 10/16/19 [History] Simvastatin 40 mg PO BEDTIME 10/16/19 [History] allopurinoL [Zyloprim] 300 mg PO DAILY 10/16/19 [History] metOLazone [Metolazone] 2.5 mg PO MOWEFR@0800 10/16/19 [History] polyethylene glycoL 3350 [MiraLAX] 17 gm PO DAILY PRN 10/16/19 [History] Ferrous Sulfate 325 mg PO DAILY 10/17/19 [History] Furosemide 80 mg PO DAILY 07/23/20 [History] Aspirin [Halfprin] 81 mg PO BEDTIME 12/20/20 [History] Cholecalciferol (Vitamin D3) [Vitamin D3] 2,000 unit PO DAILY 12/20/20 [History] Nystatin [Nystatin Crm] 1 applic TOP TID PRN 12/20/20 [History] PEG 400/Propylene Glycol [Systane Lubricant] 1 drop EYEBOTH Q4H PRN 12/20/20 [History] metFORMIN [Glucophage] 500 mg PO BIDMEALS 12/20/20 [History] Celecoxib [CeleBREX] 200 mg PO BID 01/08/21 [History] Insulin Aspart [NovoLOG] 2 - 8 unit SQ TIDMEALS 01/08/21 [History] Magnesium Chloride [Mag Delay] 64 mg PO DAILY 01/08/21 [History] Megestrol [Megace 40 MG/ML Susp] 80 mg PO QID 01/08/21 [History] Naloxone HCl [Narcan] 4 mg NS ASDIRECTED 01/08/21 [History] Potassium Chloride 40 meq PO QID 01/08/21 [History] fentaNYL [Fentanyl] 25 mcg TD Q72H 01/08/21 [History] traZODone 50 mg PO BEDTIME PRN 01/08/21 [History] Dextrose [Glucose] 16 gm PO ONETIME PRN 01/09/21 [History] Hydrocodone/Acetaminophen [Hydrocodon-Acetaminophn 10-325] 1 each PO Q6H PRN #120 tablet 01/15/21 [Rx] dexAMETHasone [Dexamethasone] 4 mg PO TID #90 tablet 01/15/21 [Rx] fentaNYL [Duragesic] 1 patch TD Q72H #3 patch 01/15/21 [Rx] fentaNYL [Duragesic] 25 mcg TRDERM Q72H #3 patch 01/15/21 [Rx] Past Medical History Cardiovascular History: Reports: Heart Murmur, High Cholesterol, Other (See Below) Other Cardiovascular History: cardiolyte stress test positive but angiogram that followed was negative. Gastrointestinal History: Reports: Other (See Below) Other Gastrointestinal History: Colon Ca with mets to spinal column Genitourinary History: Reports: Urinary Incontinence HAND BRIM IRONER History: Reports: Dysfunctional Uterine Bleeding, Other HAND BRIM IRONER History: Musculoskeletal History: Reports: Arthritis, Fracture, Gout, Other (See Below) Other Musculoskeletal History: Lymphedema, back compression fracture. Neurological History: Reports: Neuropathy, Diabetic, Neuropathy, Peripheral Endocrine/Metabolic History: Reports: Diabetes, Type II, Hypothyroidism, Obesity/BMI 30+ Hematologic History: Reports: Blood Transfusion(s), Iron Deficiency Oncologic (Cancer) History: Reports: Breast, Colon, Uterine - Infectious Disease History Infectious Disease History: Reports: Chicken Pox, Measles, Mumps, Shingles - Past Surgical History HEENT Surgical History: Reports: Eye Surgery, Tonsillectomy Other HEENT Surgeries/Procedures: bilat cataract, thyroidectomy. Sees best with left eye. Other Cardiovascular Surgeries/Procedures: angiogram [place] 10-15yrs ago GI Surgical History: Reports: Colon, Colonoscopy Female Surgical History: Reports: Hysterectomy Other Female Surgeries/Procedures: ovarian cyst Endocrine Surgical History: Reports: Thyroidectomy Musculoskeletal Surgical History: Reports: Knee Replacement Other Musculoskeletal Surgeries/Procedures:: bilat knee replacement Oncologic Surgical History: Reports: Other (See Below) Other Oncologic Surgeries/Procedures: colon resection, bilat mastectomy, hysterectomy for uterine cancer Social & Family History - Family History Family Medical History: No Pertinent Family History - Caffeine Use Caffeine Use: Reports: Coffee, Soda Caffeine Use Comment: 2 cups of each per day - Living Situation & Occupation Living situation: Reports: Occupation: Retired ED ROS GENERAL - Review of Systems Review Of Systems: See Below Constitutional: Reports: Fatigue, Decreased Appetite. Denies: Fever Respiratory: Reports: No Symptoms Cardiovascular: Reports: No Symptoms GI/Abdominal: Reports: Anorexia. Denies: Constipation : Reports: No Symptoms Musculoskeletal: Reports: Leg Pain Skin: Reports: No Symptoms Neurological: Reports: No Symptoms Psychiatric: Reports: No Symptoms ED EXAM, GI/ABD - Physical Exam Exam: See Below Exam Limited By: No Limitations General Appearance: Alert, Lethargic Nose: Normal Inspection Throat/Mouth: Normal Inspection, Inflammation Head: Atraumatic Respiratory/Chest: No Respiratory Distress, Lungs Clear, Prolonged Expiration GI/Abdominal Exam: Normal Bowel Sounds, Soft, Non-Tender Course - Orders/Labs/Meds Orders: Active Orders 24 hr Category Date Time Status Patient Status [ADT] Routine ADT 01/23/21 21:38 Active Bedrest Bathroom Privileges [RC] ASDIRECTED Care 01/23/21 21:38 Active Height and Weight [RC] DAILY Care 01/23/21 21:38 Active Oxygen Therapy [RC] PRN Care 01/23/21 21:38 Active Up With Assistance [RC] ASDIRECTED Care 01/23/21 21:38 Active VTE/DVT Education [RC] Per Unit Routine Care 01/23/21 21:38 Active Vital Signs [RC] Q4H Care 01/23/21 21:38 Active OT Evaluation and Treatment [CONS] Routine Cons 01/23/21 21:38 Active PT Evaluation and Treatment [CONS] Routine Cons 01/23/21 21:38 Active Clear Liquid Diet [DIET] Diet 01/23/21 Breakfast Ordered C-REACTIVE PROTEIN [CHEM] Stat Lab 01/23/21 21:42 Received CBC WITH AUTO DIFF [HEME] AM Lab 01/24/21 05:11 Ordered CBC WITH AUTO DIFF [HEME] Stat Lab 01/23/21 21:42 Received COMPREHENSIVE METABOLIC PN,CMP [CHEM] AM Lab 01/24/21 05:11 Ordered COMPREHENSIVE METABOLIC PN,CMP [CHEM] Stat Lab 01/23/21 21:42 Received LIPASE [CHEM] Stat Lab 01/23/21 21:42 Received HYDROmorphone [Dilaudid] Med 01/23/21 21:38 Active 0.5 mg IVPUSH Q2H PRN Ketorolac [Toradol] Med 01/23/21 21:38 Active 15 mg IVPUSH Q6H PRN Ondansetron [Zofran] Med 01/23/21 21:38 Active 8 mg IV Q6H PRN Sodium Chloride 0.9% [Normal Saline] 1,000 ml Med 01/23/21 21:45 Active IV ASDIRECTED Sodium Chloride 0.9% [Saline Flush] Med 01/23/21 21:38 Active 10 ml FLUSH ASDIRECTED PRN Peripheral IV Insertion Adult [OM.PC] Routine Oth 01/23/21 21:38 Ordered Resuscitation Status Routine Resus Stat 01/23/21 21:38 Ordered Medication Orders Hydromorphone HCl (Hydromorphone 2 Mg/Ml Sdv) 0.5 mg IVPUSH Q2H PRN PRN Reason: Pain (severe 7-10) Sodium Chloride (Normal Saline) 1,000 mls @ 125 mls/hr IV ASDIRECTED [facility] Ketorolac Tromethamine (Ketorolac 30 Mg/Ml Sdv) 15 mg IVPUSH Q6H PRN PRN Reason: Pain (moderate 4-6) Ondansetron HCl (Ondansetron 4 Mg/2 Ml Sdv) 8 mg IV Q6H PRN PRN Reason: Nausea/Vomiting Sodium Chloride (Sodium Chloride 0.9% 10 Ml Syringe) 10 ml FLUSH ASDIRECTED PRN PRN Reason: Keep Vein Open Meds: Medications Generic Name Dose Route Start Last Admin Trade Name Freq PRN Reason Stop Dose Admin Hydromorphone HCl 0.5 mg 01/23/21 21:38 Hydromorphone 2 Mg/Ml Sdv IVPUSH Q2H PRN Pain (severe 7-10) Sodium Chloride 1,000 mls @ 125 mls/hr 01/23/21 21:45 Normal Saline IV ASDIRECTED [facility] Ketorolac Tromethamine 15 mg 01/23/21 21:38 Ketorolac 30 Mg/Ml Sdv IVPUSH Q6H PRN Pain (moderate 4-6) Ondansetron HCl 8 mg 01/23/21 21:38 Ondansetron 4 Mg/2 Ml Sdv IV Q6H PRN Nausea/Vomiting Sodium Chloride 10 ml 01/23/21 21:38 Sodium Chloride 0.9% 10 Ml Syringe FLUSH ASDIRECTED PRN Keep Vein Open Departure - Departure Time of Disposition: 21:54 Disposition: Refer to Observation Clinical Impression: Weakness, Nausea - Discharge Information - Problem List & Annotations (1) 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 SNOMED Code(s): 80004053, 962612313 Code(s): C79.82 - SECONDARY MALIGNANT NEOPLASM OF GENITAL ORGANS Status: Acute (2) Intractable pain SNOMED Code(s): 83540569 Code(s): R52 - PAIN, UNSPECIFIED Status: Acute (3) Feeling poorly SNOMED Code(s): 87417902 Code(s): R68.89 - OTHER GENERAL SYMPTOMS AND SIGNS Status: Acute (4) Nausea SNOMED Code(s): 187255848 Code(s): R11.0 - NAUSEA Status: Acute (5) Weakness SNOMED Code(s): 36285609 Code(s): R53.1 - WEAKNESS Status: Acute (6) Diabetes type 2, controlled SNOMED Code(s): 20892232, 402593489 Code(s): E11.9 - TYPE 2 DIABETES MELLITUS WITHOUT COMPLICATIONS Status: Chronic - Problem List Review Problem List Initiated/Reviewed/Updated: Yes - My Orders Last 24 Hours: My Active Orders 01/23/21 Breakfast Clear Liquid Diet [DIET] 01/23/21 21:38 Patient Status [ADT] Routine Bedrest Bathroom Privileges [RC] ASDIRECTED Height and Weight [RC] DAILY Oxygen Therapy [RC] PRN Up With Assistance [RC] ASDIRECTED VTE/DVT Education [RC] Per Unit Routine Vital Signs [RC] Q4H OT Evaluation and Treatment [CONS] Routine PT Evaluation and Treatment [CONS] Routine HYDROmorphone [Dilaudid] 0.5 mg IVPUSH Q2H PRN Ketorolac [Toradol] 15 mg IVPUSH Q6H PRN Ondansetron [Zofran] 8 mg IV Q6H PRN Sodium Chloride 0.9% [Saline Flush] 10 ml FLUSH ASDIRECTED PRN Peripheral IV Insertion Adult [OM.PC] Routine Resuscitation Status Routine 01/23/21 21:42 C-REACTIVE PROTEIN [CHEM] Stat CBC WITH AUTO DIFF [HEME] Stat COMPREHENSIVE METABOLIC PN,CMP [CHEM] Stat LIPASE [CHEM] Stat 01/23/21 21:45 Sodium Chloride 0.9% [Normal Saline] 1,000 ml IV ASDIRECTED 01/24/21 05:11 CBC WITH AUTO DIFF [HEME] AM COMPREHENSIVE METABOLIC PN,CMP [CHEM] AM - Assessment/Plan Last 24 Hours: My Active Orders 01/23/21 Breakfast Clear Liquid Diet [DIET] 01/23/21 21:38 Patient Status [ADT] Routine Bedrest Bathroom Privileges [RC] ASDIRECTED Height and Weight [RC] DAILY Oxygen Therapy [RC] PRN Up With Assistance [RC] ASDIRECTED VTE/DVT Education [RC] Per Unit Routine Vital Signs [RC] Q4H OT Evaluation and Treatment [CONS] Routine PT Evaluation and Treatment [CONS] Routine HYDROmorphone [Dilaudid] 0.5 mg IVPUSH Q2H PRN Ketorolac [Toradol] 15 mg IVPUSH Q6H PRN Ondansetron [Zofran] 8 mg IV Q6H PRN Sodium Chloride 0.9% [Saline Flush] 10 ml FLUSH ASDIRECTED PRN Peripheral IV Insertion Adult [OM.PC] Routine Resuscitation Status Routine 01/23/21 21:42 C-REACTIVE PROTEIN [CHEM] Stat CBC WITH AUTO DIFF [HEME] Stat COMPREHENSIVE METABOLIC PN,CMP [CHEM] Stat LIPASE [CHEM] Stat 01/23/21 21:45 Sodium Chloride 0.9% [Normal Saline] 1,000 ml IV ASDIRECTED 01/24/21 05:11 CBC WITH AUTO DIFF [HEME] AM COMPREHENSIVE METABOLIC PN,CMP [CHEM] AM Plan: Obtain IV access,start IVF supplementation,IV Zofran and IV Dilaudid. Admit for rehydration,PT,pain control.
[2021-01-23] MEDS: Ondansetron 4 MG/2 ML SDV IV PRN (22:15)
[2021-01-23] MEDS: Sodium Chloride 0.9% 1,000 ML IV SCH ×2 (22:17→22:43)
[2021-01-24] MEDS: Ondansetron 4 MG/2 ML SDV IV PRN ×3 (04:16→17:14)
[2021-01-24] MEDS: Sodium Chloride 0.9% 1,000 ML IV SCH (06:39)
[2021-01-24] MEDS ORDERED: Magnesium Sulfate/Water 50 ML IV ONE (08:30)
[2021-01-24] MEDS ORDERED: PROPYLENE GLYCOL EYEBOTH PRN (08:33)
[2021-01-24] MEDS ORDERED: PEG EYEBOTH PRN (08:33)
[2021-01-24] MEDS ORDERED: [UNRECOGNIZED DRUG - OTHER] EYEBOTH PRN (08:33)
[2021-01-24] MEDS ORDERED: TRAZODONE 50 MG PO PRN (08:33)
[2021-01-24] MEDS ORDERED: Acetaminophen/HYDROcodone 325-5 MG Tab PO PRN (08:41)
--- NOTE | 2021-01-24 08:54 | PCM.HP.2 ---
H&P History of Present Illness - General Date of Service: 01/24/21 Admit Problem/Dx: Admission Diagnosis/Problem Admission Diagnosis/Problem Weakness Source of Information: Patient, Old Records, Provider History Limitations: Reports: No Limitations - History of Present Illness Initial Comments - Free Text/Narative: 81-year-old lady with past medical history significant for metastatic cancer with history of breast cancer, colon cancer, and uterine cancer came to the emergency department due to nausea, diarrhea, weakness. She was treated as an inpatient in [place] for her metastatic cancer and pathologic fracture of sacral vertebrae and discharged to swing bed here for rehabilitation. She was sent home approximately 1 week ago to assisted living at [facility]. She was seen in her primary care physician's office on Thursday and was doing well. On Thursday, approximately 3 days ago, she began to experience nausea. She has had reduced oral intake over the last 3 days and had at least 2 bouts of significant diarrhea. Onset of Symptoms: Reports: Sudden Bilateral Back Pain Score (Numeric/FACES): 5 - Related Data Allergies/Adverse Reactions: Allergies Allergy/AdvReac Type Severity Reaction Status Date / Time cephalexin [From Keflex] Allergy Hives Verified 01/08/21 16:06 oxycodone [From Tylox] Allergy Shortness Verified 01/08/21 16:06 of Breath Home Medications: Home Meds Multivit-Min/Iron/Folic/Lutein [Centrum Silver Women Tablet] 1 tab PO DAILY 10/16/19 [History] Simvastatin 40 mg PO BEDTIME 10/16/19 [History] allopurinoL [Zyloprim] 300 mg PO DAILY 10/16/19 [History] metOLazone [Metolazone] 2.5 mg PO MOWEFR@0800 10/16/19 [History] polyethylene glycoL 3350 [MiraLAX] 17 gm PO DAILY PRN 10/16/19 [History] Ferrous Sulfate 325 mg PO DAILY 10/17/19 [History] Furosemide 80 mg PO DAILY 07/23/20 [History] Aspirin [Halfprin] 81 mg PO BEDTIME 12/20/20 [History] Cholecalciferol (Vitamin D3) [Vitamin D3] 2,000 unit PO DAILY 12/20/20 [History] Nystatin [Nystatin Crm] 1 applic TOP TID PRN 12/20/20 [History] PEG 400/Propylene Glycol [Systane Lubricant] 1 drop EYEBOTH Q4H PRN 12/20/20 [History] metFORMIN [Glucophage] 500 mg PO BIDMEALS 12/20/20 [History] Celecoxib [CeleBREX] 200 mg PO BID 01/08/21 [History] Insulin Aspart [NovoLOG] 2 - 8 unit SQ TIDMEALS 01/08/21 [History] Magnesium Chloride [Mag Delay] 64 mg PO DAILY 01/08/21 [History] Megestrol [Megace 40 MG/ML Susp] 80 mg PO QID 01/08/21 [History] Potassium Chloride 40 meq PO QID 01/08/21 [History] fentaNYL [Fentanyl] 25 mcg TD Q72H 01/08/21 [History] traZODone 50 mg PO BEDTIME PRN 01/08/21 [History] Dextrose [Glucose] 16 gm PO ONETIME PRN 01/09/21 [History] Hydrocodone/Acetaminophen [Hydrocodon-Acetaminophn 10-325] 1 each PO Q6H PRN #120 tablet 01/15/21 [Rx] dexAMETHasone [Dexamethasone] 4 mg PO TID #90 tablet 01/15/21 [Rx] fentaNYL [Duragesic] 1 patch TD Q72H #3 patch 01/15/21 [Rx] fentaNYL [Duragesic] 25 mcg TRDERM Q72H #3 patch 01/15/21 [Rx] Past Medical History Cardiovascular History: Reports: Heart Murmur, High Cholesterol, Other (See Below) Other Cardiovascular History: cardiolyte stress test positive but angiogram that followed was negative. Gastrointestinal History: Reports: Other (See Below) Other Gastrointestinal History: Colon Ca with mets to spinal column Genitourinary History: Reports: Urinary Incontinence [employer] History: Reports: Dysfunctional Uterine Bleeding, Other OB/BYN History: Musculoskeletal History: Reports: Arthritis, Fracture, Gout, Other (See Below) Other Musculoskeletal History: Lymphedema, back compression fracture. Neurological History: Reports: Neuropathy, Diabetic, Neuropathy, Peripheral Endocrine/Metabolic History: Reports: Diabetes, Type II, Hypothyroidism, Obesity/BMI 30+ Hematologic History: Reports: Blood Transfusion(s), Iron Deficiency Oncologic (Cancer) History: Reports: Breast, Colon, Uterine - Infectious Disease History Infectious Disease History: Reports: Chicken Pox, Measles, Mumps, Shingles - Past Surgical History HEENT Surgical History: Reports: Eye Surgery, Tonsillectomy Other HEENT Surgeries/Procedures: bilat cataract, thyroidectomy. Sees best with left eye. Other Cardiovascular Surgeries/Procedures: angiogram [place] 10-15yrs ago GI Surgical History: Reports: Colon, Colonoscopy Female Surgical History: Reports: Hysterectomy Other Female Surgeries/Procedures: ovarian cyst Endocrine Surgical History: Reports: Thyroidectomy Musculoskeletal Surgical History: Reports: Knee Replacement Other Musculoskeletal Surgeries/Procedures:: bilat knee replacement Oncologic Surgical History: Reports: Other (See Below) Other Oncologic Surgeries/Procedures: colon resection, bilat mastectomy, hysterectomy for uterine cancer Social & Family History - Family History Family Medical History: No Pertinent Family History - Tobacco Use Tobacco Use Status *Q: Never Tobacco User Second Hand Smoke Exposure: No - Caffeine Use Caffeine Use: Reports: None Caffeine Use Comment: unable to taste for last 2 weeks - Recreational Drug Use Recreational Drug Use: No - Living Situation & Occupation Living situation: Reports: Occupation: Retired H&P Review of Systems - Review of Systems: Review Of Systems: See Below General: Reports: Malaise, Weakness, Fatigue HEENT: Reports: No Symptoms Pulmonary: Reports: No Symptoms Cardiovascular: Reports: No Symptoms Gastrointestinal: Reports: Diarrhea, Decreased Appetite, Nausea Genitourinary: Reports: No Symptoms Musculoskeletal: Reports: Leg Pain Skin: Reports: No Symptoms Psychiatric: Reports: No Symptoms Neurological: Reports: No Symptoms Hematologic/Lymphatic: Reports: No Symptoms Immunologic: Reports: No Symptoms Exam - Exam Exam: See Below - Vital Signs Vital Signs: Last Vital Signs Temp 36.6 C 01/24/21 04:55 Pulse 80 01/24/21 04:55 Resp 18 01/24/21 04:55 BP 152/81 H 01/24/21 04:55 Pulse Ox 95 01/24/21 04:55 Weight: 118.388 kg - Exam Quality Assessment: Supplemental Oxygen, DVT Prophylaxis, Skin Breakdown General: Alert, Oriented, Cooperative HEENT: EOMI Lungs: Decreased Breath Sounds, Crackles, Other (Bilateral lower lobe crackles) Cardiovascular: Regular Rate, Regular Rhythm GI/Abdominal Exam: Abnormal Bowel Sounds Extremities: Pedal Edema, Other (Bilateral lower extremity chronic swelling with 1+ pitting edema) Peripheral Pulses: 2+: Radial (L), Radial (R), Dorsalis Pedis (L), Dorsalis Pedis (R) Skin: Warm, Dry Neurological: Cranial Nerves Intact Neuro Extensive - Mental Status: Alert, Oriented x3, Normal Mood/Affect Psychiatric: Alert, Normal Affect, Normal Mood - Patient Data Lab Results Last 24 hrs: Laboratory Results - last 24 hr 01/23/21 01/23/21 01/23/21 Range/Units 21:42 21:42 21:42 WBC 13.5 H (3.0-10.3) x10-3/uL RBC 3.82 (3.60-5.20) x10(6)uL Hgb 13.8 (11.4-15.5) g/dL Hct 38.8 (34.2-48.2) % MCV 101.4 H (76.7-100.5) fL MCH 36.1 H (23.9-33.9) pg MCHC 35.6 H (31.9-34.8) g/dL RDW 15.0 (12.3-16.5) % Plt Count 122 L (151-488) x10(3)uL MPV 11.1 (7.1-12.4) fL Neut % (Auto) 95.6 H (30.8-76.2) % Lymph % (Auto) 1.7 L (18.4-52.1) % Starke % (Auto) 2.5 L (4.4-15.7) % Eos % (Auto) 0.1 L (0.6-8.1) % Baso % (Auto) 0.1 L (0.2-1.5) % Neut # (Auto) 12.9 H (1.5-6.3) x10-3/uL Lymph # (Auto) 0.2 L (1.0-4.4) x10-3/uL Starke # (Auto) 0.3 (0.3-1.0) x10-3/uL Eos # (Auto) 0.0 (0.0-0.8) x10-3/uL Baso # (Auto) 0.0 (0.0-0.1) x10-3/uL Sodium 140 (135-145) mmol/L Potassium 3.8 (3.5-5.3) mmol/L Chloride 103 (100-110) mmol/L Carbon Dioxide 26 (21-32) mmol/L BUN 36 H D (7-18) mg/dL Creatinine 1.2 H (0.55-1.02) mg/dL Est Cr Clr Drug Dosing TNP Estimated GFR (MDRD) 43 L (>60) BUN/Creatinine Ratio 30.0 H (9-20) Glucose 293 H (80-116) mg/dL Calcium 8.1 L (8.6-10.2) mg/dL Magnesium (1.8-2.5) mg/dL Total Bilirubin 0.8 (0.1-1.3) mg/dL AST 25 (5-25) IU/L ALT 38 H D (12-36) U/L Alkaline Phosphatase 108 (56-112) IU/L C-Reactive Protein 0.3 L (0.5-0.9) mg/dL Total Protein 6.3 (6.0-8.0) g/dL Albumin 2.9 L (3.2-4.6) g/dL Globulin 3.4 g/dL Albumin/Globulin Ratio 0.9 Lipase 125 (73-393) U/L 01/23/21 01/24/21 01/24/21 Range/Units 21:42 06:15 06:15 WBC 11.4 H (3.0-10.3) x10-3/uL RBC 3.33 L (3.60-5.20) x10(6)uL Hgb 11.9 (11.4-15.5) g/dL Hct 34.0 L (34.2-48.2) % MCV 102.0 H (76.7-100.5) fL MCH 35.6 H (23.9-33.9) pg MCHC 34.9 H (31.9-34.8) g/dL RDW 15.1 (12.3-16.5) % Plt Count 102 L (151-488) x10(3)uL MPV 11.1 (7.1-12.4) fL Neut % (Auto) 94.6 H (30.8-76.2) % Lymph % (Auto) 1.7 L (18.4-52.1) % Starke % (Auto) 3.4 L (4.4-15.7) % Eos % (Auto) 0.0 L (0.6-8.1) % Baso % (Auto) 0.3 (0.2-1.5) % Neut # (Auto) 10.8 H (1.5-6.3) x10-3/uL Lymph # (Auto) 0.2 L (1.0-4.4) x10-3/uL Starke # (Auto) 0.4 (0.3-1.0) x10-3/uL Eos # (Auto) 0.0 (0.0-0.8) x10-3/uL Baso # (Auto) 0.0 (0.0-0.1) x10-3/uL Sodium 144 (135-145) mmol/L Potassium 3.9 (3.5-5.3) mmol/L Chloride 108 D (100-110) mmol/L Carbon Dioxide 26 (21-32) mmol/L BUN 36 H (7-18) mg/dL Creatinine 0.9 (0.55-1.02) mg/dL Est Cr Clr Drug Dosing 45.12 Estimated GFR (MDRD) 60 (>60) BUN/Creatinine Ratio 40.0 H (9-20) Glucose 273 H (80-116) mg/dL Calcium 7.5 L (8.6-10.2) mg/dL Magnesium 1.5 L (1.8-2.5) mg/dL Total Bilirubin 0.6 (0.1-1.3) mg/dL AST 23 (5-25) IU/L ALT 34 D (12-36) U/L Alkaline Phosphatase 80 (56-112) IU/L C-Reactive Protein (0.5-0.9) mg/dL Total Protein 5.0 L (6.0-8.0) g/dL Albumin 2.3 L (3.2-4.6) g/dL Globulin 2.7 g/dL Albumin/Globulin Ratio 0.9 Lipase (73-393) U/L Result Diagrams: 01/24/21 06:15 01/24/21 06:15 Sepsis Event Note - Evaluation Sepsis Screening Result: No Definite Risk - Focused Exam Vital Signs: Vital Signs Temp Pulse Resp BP Pulse Ox 01/24/21 04:55 36.6 C 80 18 152/81 H 95 01/24/21 03:00 36.8 C 81 18 151/72 H 95 01/23/21 23:00 36.2 C 86 18 148/82 H 95 01/23/21 22:25 36.2 C 87 20 157/82 H 96 01/23/21 21:35 36.7 C 101 H 20 136/81 96 - Problem List (1) Gout SNOMED Code(s): 04375467 ICD Code: M10.9 - GOUT, UNSPECIFIED Status: Chronic Current Visit: No (2) Hypomagnesemia SNOMED Code(s): 400144043 ICD Code: E83.42 - HYPOMAGNESEMIA Status: Chronic Current Visit: No (3) Intractable pain SNOMED Code(s): 75668072 ICD Code: R52 - PAIN, UNSPECIFIED Status: Chronic Current Visit: No (4) Nausea vomiting and diarrhea SNOMED Code(s): 7987344 ICD Code: R11.2 - NAUSEA WITH VOMITING, UNSPECIFIED; R19.7 - DIARRHEA, UNSPECIFIED Status: Acute Current Visit: No (5) Palliative care encounter SNOMED Code(s): 895506694, 066423443 ICD Code: Z51.5 - ENCOUNTER FOR PALLIATIVE CARE Status: Acute Current Visit: No (6) Pathological fracture of sacral vertebra SNOMED Code(s): 81016884408297620 ICD Code: M84.48XA - PATHOLOGICAL FRACTURE, OTHER SITE, INIT ENCNTR FOR FRACTURE Status: Chronic Current Visit: No Problem Details: MRI Lumbar without contrast: Aggressive appearing lesion involving the S1 & S2 segments with ventral epidural soft tissue component causing sever canal & right subarticular recess stenosis. Differential includes metastatic disease & primary neoplasm such as sarcoma. Hematology oncology consultation recommended. (7) Weakness SNOMED Code(s): 15184167 ICD Code: R53.1 - WEAKNESS Status: Acute Current Visit: No (8) DDD (degenerative disc disease) SNOMED Code(s): 07502354 ICD Code: BNL4738 - Status: Chronic Current Visit: No (9) Diabetes type 2, controlled SNOMED Code(s): 81244565, 980589843 ICD Code: E11.9 - TYPE 2 DIABETES MELLITUS WITHOUT COMPLICATIONS Status: Chronic Current Visit: No (10) HLD (hyperlipidemia) SNOMED Code(s): 77476267 ICD Code: E78.5 - HYPERLIPIDEMIA, UNSPECIFIED Status: Chronic Current Visit: No (11) History of breast cancer SNOMED Code(s): 224238141 ICD Code: Z85.3 - PERSONAL HISTORY OF MALIGNANT NEOPLASM OF BREAST Status: Chronic Current Visit: No (12) History of colon cancer SNOMED Code(s): 467782015 ICD Code: Z85.038 - PERSONAL HISTORY OF MALIGNANT NEOPLASM OF LARGE INTESTINE Status: Chronic Current Visit: No (13) History of uterine cancer SNOMED Code(s): 821276368 ICD Code: Z85.42 - PERSONAL HISTORY OF MALIGNANT NEOPLASM OF OTH PRT UTERUS Status: Chronic Current Visit: No (14) Obesity SNOMED Code(s): 059634678, 236448114 ICD Code: E66.9 - OBESITY, UNSPECIFIED Status: Chronic Current Visit: No Qualifiers: Body mass index: BMI 45.0-49.9 (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 SNOMED Code(s): 586022601 ICD Code: G62.0 - DRUG-INDUCED POLYNEUROPATHY; T45.1X5A - ADVERSE EFFECT OF ANTINEOPLASTIC AND IMMUNOSUP DRUGS, INIT Status: Chronic Current Visit: No (16) Spinal stenosis SNOMED Code(s): 85730982 ICD Code: M48.00 - SPINAL STENOSIS, SITE UNSPECIFIED Status: Chronic Current Visit: No Problem List Initiated/Reviewed/Updated: Yes Orders Last 24hrs: Active Orders 24 hr Category Date Time Status Patient Status [ADT] Routine ADT 01/23/21 21:38 Active Bedrest Bathroom Privileges [RC] ASDIRECTED Care 01/23/21 21:38 Active Height and Weight [RC] DAILY Care 01/23/21 21:38 Active Oxygen Therapy [RC] PRN Care 01/23/21 21:38 Active Supplement (Dietary) [Dietary Supplements] [RC] Care 01/24/21 08:26 Ordered WITHMEALSANDBED Up With Assistance [RC] ASDIRECTED Care 01/23/21 21:38 Active VTE/DVT Education [RC] Per Unit Routine Care 01/23/21 21:38 Active Vital Signs [RC] Q4H Care 01/23/21 21:38 Active OT Evaluation and Treatment [CONS] Routine Cons 01/23/21 21:38 Active PT Evaluation and Treatment [CONS] Routine Cons 01/23/21 21:38 Active Consistent Carbohydrate Diet [DIET] Diet 01/24/21 Lunch Ordered MONIK PREP [MYC] Routine Lab 01/24/21 08:25 Ordered Aspirin [Halfprin] Med 01/24/21 21:00 Ordered 81 mg PO BEDTIME Celecoxib [CeleBREX] Med 01/24/21 09:00 Ordered 200 mg PO BID Cholecalciferol (Vitamin D3) [Vitamin D3] Med 01/24/21 09:00 Ordered 2,000 unit PO DAILY Enoxaparin [Lovenox] Med 01/24/21 09:00 Active 40 mg SUBCUT DAILY Ferrous Sulfate [Ferrous Sulfate] Med 01/24/21 09:00 Ordered 325 mg PO DAILY Furosemide [Furosemide] Med 01/24/21 09:00 Ordered 80 mg PO DAILY HYDROmorphone [Dilaudid] Med 01/23/21 21:38 Active 0.5 mg IVPUSH Q2H PRN Hydrocodone/Acetaminophen [Hydrocodon-Acetaminophn 10- Med 01/24/21 08:33 Ordered 325] 1 each PO Q6H PRN Insulin Aspart [NovoLOG] Med 01/24/21 12:00 Ordered See Dose Instructions SQ TIDMEALS Ketorolac [Toradol] Med 01/24/21 10:20 Active 15 mg IVPUSH Q6H PRN Magnesium Sulfate/Water [Magnesium Sulfate in Water 4 Med 01/24/21 08:30 Active GM/50 ML] 50 ml IV ONETIME Megestrol [Megace 40 MG/ML Susp] Med 01/24/21 09:00 Ordered 80 mg PO QID Multivit-Min/Iron/Folic/Lutein [Centrum Silver Women Med 01/24/21 09:00 Ordered Tablet] 1 tab PO DAILY Ondansetron [Zofran] Med 01/23/21 21:38 Active 8 mg IV Q6H PRN PEG 400/Propylene Glycol [Systane Lubricant] Med 01/24/21 08:33 Ordered 1 drop EYEBOTH Q4H PRN Potassium Chloride [Potassium Chloride] Med 01/24/21 09:00 Ordered 40 meq PO QID Simvastatin [Simvastatin] Med 01/24/21 21:00 Ordered 40 mg PO BEDTIME Sodium Chloride 0.9% [Saline Flush] Med 01/23/21 21:38 Active 10 ml FLUSH ASDIRECTED PRN allopurinoL [Zyloprim] Med 01/24/21 09:00 Ordered 300 mg PO DAILY dexAMETHasone [Dexamethasone] Med 01/24/21 09:00 Ordered 4 mg PO DAILY fentaNYL [Duragesic] Med 01/24/21 08:45 Ordered 1 patch TD Q72H fentaNYL [Duragesic] Med 01/24/21 08:45 Ordered 25 mcg TRDERM Q72H metFORMIN [Glucophage] Med 01/24/21 18:00 Ordered 500 mg PO BIDMEALS metOLazone [Metolazone] Med 01/25/21 08:00 Ordered 2.5 mg PO MOWEFR@0800 polyethylene glycoL 3350 [MiraLAX] Med 01/24/21 08:33 Ordered 17 gm PO DAILY PRN traZODone [traZODone] Med 01/24/21 08:33 Ordered 50 mg PO BEDTIME PRN Peripheral IV Insertion Adult [OM.PC] Routine Oth 01/23/21 21:38 Ordered Resuscitation Status Routine Resus Stat 01/23/21 21:38 Ordered Medication Orders Hydrocodone Bitart/Acetaminophen (Acetaminophen/Hydrocodone 325-5 Mg Tab) 1 tab PO Q6H PRN PRN Reason: Pain Enoxaparin Sodium (Enoxaparin 40 Mg/0.4 Ml Syringe) 40 mg SUBCUT DAILY GABBY Hydromorphone HCl (Hydromorphone 2 Mg/Ml Sdv) 0.5 mg IVPUSH Q2H PRN PRN Reason: Pain (severe 7-10) Magnesium Sulfate (Magnesium Sulfate In Water 4 Gm/50 Ml) 50 mls @ 12.5 mls/hr IV ONETIME ONE Stop: 01/24/21 12:29 Ketorolac Tromethamine (Ketorolac 15 Mg/Ml Sdv) 15 mg IVPUSH Q6H PRN PRN Reason: Pain (moderate 4-6) Non-Formulary Medication (Allopurinol [Zyloprim]) 300 mg PO DAILY GABBY Non-Formulary Medication (Aspirin [Halfprin]) 81 mg PO BEDTIME GABBY Non-Formulary Medication (Celecoxib [Celebrex]) 200 mg PO BID GABBY Non-Formulary Medication (Cholecalciferol (Vitamin D3) [Vitamin D3]) 2,000 unit PO DAILY GABBY Non-Formulary Medication (Dexamethasone [Dexamethasone]) 4 mg PO DAILY GABBY Non-Formulary Medication (Fentanyl [Duragesic]) 1 patch TD Q72H GABBY Non-Formulary Medication (Fentanyl [Duragesic]) 25 mcg TRDERM Q72H [facility] Non-Formulary Medication (Ferrous Sulfate [Ferrous Sulfate]) 325 mg PO DAILY GABBY Non-Formulary Medication (Furosemide [Furosemide]) 80 mg PO DAILY GABBY Non-Formulary Medication (Megestrol [Megace 40 Mg/Ml Susp]) 80 mg PO QID GABBY Non-Formulary Medication (Metformin [Glucophage]) 500 mg PO BIDMEALS GABBY Non-Formulary Medication (Metolazone [Metolazone]) 2.5 mg PO MOWEFR@0800 GABBY Non-Formulary Medication (Multivit-Min/Iron/Folic/Lutein [Centrum Silver Women Tablet]) 1 tab PO DAILY GABBY Non-Formulary Medication (Peg 400/Propylene Glycol [Systane Lubricant]) 1 drop EYEBOTH Q4H PRN PRN Reason: Dry Eyes Non-Formulary Medication (Polyethylene Glycol 3350 [Miralax]) 17 gm PO DAILY PRN PRN Reason: Constipation Non-Formulary Medication (Potassium Chloride [Potassium Chloride]) 40 meq PO QID GABBY Non-Formulary Medication (Simvastatin [Simvastatin]) 40 mg PO BEDTIME GABBY Non-Formulary Medication (Trazodone [Trazodone]) 50 mg PO BEDTIME PRN PRN Reason: Insomnia Non-Formulary Medication (Insulin Aspart [Novolog]) 0 unit SQ TIDMEALS [facility] Ondansetron HCl (Ondansetron 4 Mg/2 Ml Sdv) 8 mg IV Q6H PRN PRN Reason: Nausea/Vomiting Last Admin: 01/24/21 04:16 Dose: 8 mg Documented by: Admin: 01/23/21 22:15 Dose: 8 mg Documented by: DUANE Sodium Chloride (Sodium Chloride 0.9% 10 Ml Syringe) 10 ml FLUSH ASDIRECTED PRN PRN Reason: Keep Vein Open Assessment/Plan Comment:: 1. Admit to observation. Continue home medications. 2. Consistent carbohydrate diet with supplemental nutrition. Patient encouraged to take supplemental depression secondary to dehydration on presentation to the emergency department. Patient was treated with fluid bolus and normal saline at 125 mL/h. Fluids have been stopped and patient's diet advanced as above. We will continue to take home medication including diuretics 3. Patient's pain is, according to the patient, unchanged since discharge from swing bed/rehabilitation. Her pain is well controlled when at rest but has significant left hip and leg pain when ambulating. 4. MONIK prep from oral specimen to determine if the patient has thrush. If thrush is confirmed patient will continue with nystatin oral swish and spit, home medication 5. DVT prophylaxis: Lovenox. Patient does have decreased platelets at 102,000 today but this appears to be at least partially dilutional secondary to IV fluids. Patient has significant risk factors due to immobility, history of cancer, obesity 6. Disposition: Patient states that she began to feel nauseous and this had reduced appetite and diarrhea and possibly some vomiting approximately 3 days ago. She is likely experiencing significant weakness secondary to dehydration and possible viral gastroenteritis. Patient's diet will be advanced as above. If she continues to improve she will likely be discharged back to [facility] [place] tomorrow
[2021-01-24] MEDS ORDERED: Ketorolac 15 MG/ML SDV IVPUSH PRN (10:20)
[2021-01-24] MEDS: CHOLECALCIFEROL 2000 UNIT PO SCH (11:04)
[2021-01-24] MEDS: FERROUS SULFATE 325 MG PO SCH (11:04)
[2021-01-24] MEDS: FUROSEMIDE 80 MG PO SCH (11:05)
[2021-01-24] MEDS: MULTIVIT MIN PO SCH (11:06)
[2021-01-24] MEDS: FOLIC PO SCH (11:06)
[2021-01-24] MEDS: IRON PO SCH (11:06)
[2021-01-24] MEDS: LUTEIN PO SCH (11:06)
[2021-01-24] MEDS: MEGESTROL PO SCH ×4 (11:07→20:13)
[2021-01-24] MEDS: Potassium Chloride 20 MEQ Tab.ER *PTOM PO SCH (11:10)
[2021-01-24] MEDS: Enoxaparin 40 MG/0.4 ML Syringe SUBCUT SCH (11:11)
[2021-01-24] MEDS: Sodium Chloride 0.9% 10 ML Syringe FLUSH PRN ×4 (11:15→20:22)
[2021-01-24] MEDS ORDERED: Non-Formulary Medication 1 Each (Insulin Aspart [Novolog] 100 UNIT/ML Pen) SQ SCH (12:00)
[2021-01-24] MEDS: METFORMIN 500 MG PO SCH (17:35)
[2021-01-24] MEDS: Metoclopramide 10 MG/2 ML SDV IVPUSH PRN (20:21)
[2021-01-24] MEDS ORDERED: ASPIRIN 81 MG PO SCH (21:00)
[2021-01-24] MEDS ORDERED: [UNRECOGNIZED DRUG - OTHER] PO SCH (21:00)
[2021-01-25] MEDS: Ondansetron 4 MG/2 ML SDV IV PRN ×2 (00:21→07:53)
[2021-01-25] MEDS: Sodium Chloride 0.9% 10 ML Syringe FLUSH PRN ×3 (00:23→07:55)
[2021-01-25] MEDS: Metoclopramide 10 MG/2 ML SDV IVPUSH PRN ×2 (04:01→14:34)
[2021-01-25] MEDS: METFORMIN 500 MG PO SCH ×2 (08:05→11:00)
[2021-01-25] MEDS: CHOLECALCIFEROL 2000 UNIT PO SCH ×2 (08:07→11:00)
[2021-01-25] MEDS: FERROUS SULFATE 325 MG PO SCH ×2 (08:08→11:01)
[2021-01-25] MEDS: FUROSEMIDE 80 MG PO SCH ×2 (08:08→11:01)
[2021-01-25] MEDS: MEGESTROL PO SCH ×3 (08:09→14:20)
[2021-01-25] MEDS: Potassium Chloride 20 MEQ Tab.ER *PTOM PO SCH ×2 (08:09→11:01)
[2021-01-25] MEDS: FOLIC PO SCH ×2 (08:11→11:01)
[2021-01-25] MEDS: MULTIVIT MIN PO SCH ×2 (08:11→11:01)
[2021-01-25] MEDS: LUTEIN PO SCH ×2 (08:11→11:01)
[2021-01-25] MEDS: IRON PO SCH ×2 (08:11→11:01)
[2021-01-25] MEDS: Enoxaparin 40 MG/0.4 ML Syringe SUBCUT SCH (08:15)
[2021-01-25] MEDS ORDERED: hydrOXYzine HCl 50 MG/ML SDV IM ONE (08:31)
[2021-01-25] MEDS ORDERED: Pantoprazole 40 MG in Sodium Chloride 0.9% 100 ML IV ONE (14:05)
[2021-01-25] MEDS ORDERED: Scopolamine 1.5 MG Transdermal Patch TOP ONE (14:05)
[2021-01-25] MEDS ORDERED: Pantoprazole 40 MG Vial IVPUSH ONE (14:15)
[2021-01-25] MEDS ORDERED: Sodium Chloride 0.9% 1,000 ML IV SCH (14:15)
--- NOTE | 2021-01-25 18:38 | DISCH ---
DISCHARGE DATE: 01/25/2021 REASON FOR ADMISSION: 1. Weakness. 2. Intractable nausea. 3. Leg pain. 4. Metastatic cancer of the uterus. DISCHARGE DIAGNOSES: 1. Weakness. 2. Intractable nausea. 3. Leg pain. 4. Metastatic cancer of the uterus. SECONDARY DIAGNOSES: 1. Obesity. 2. Type 2 diabetes. CONSULTATIONS: None. BRIEF HISTORY: An 81-year-old who came in on the with pain in the left leg and nausea, dehydration. She was admitted for pain control and IV fluid supplementation. However, she has made no progress. She feels very sick to the stomach, unable to keep anything down, feels very poorly. I discussed this with the hospitalist at [facility] and the decision was made to transfer her for further treatment. I spent more than 35 minutes in the transfer of this patient. /[id number] SABAS/DILCIA
[2021-01-26] MEDS ORDERED: fentaNYL 12 MCG/HR Transdermal Patch TRDERM SCH (18:00)
[2021-01-26] MEDS ORDERED: fentaNYL 25 MCG/HR Transdermal Patch TRDERM SCH (18:00)
== END 2021-01-25 15:45 | disposition designated cancer center or children's hospital (05) ==
LOC: FB.ED 21:29 → FB.MS 21:38
PROVIDERS: ADMIT Family Medicine; ATTEND Family Medicine
DX: E86.0 Dehydration (principal); R53.1 Weakness; Z51.5 Encounter for palliative care; M79.605 Pain in left leg; R68.89 Other general symptoms and signs; E11.9 Type 2 diabetes mellitus without complications; E78.00 Pure hypercholesterolemia, unspecified; M10.9 Gout, unspecified; E03.9 Hypothyroidism, unspecified; E83.42 Hypomagnesemia; R19.7 Diarrhea, unspecified; M84.48XA Pathological fracture, other site, initial encounter for fracture; E78.5 Hyperlipidemia, unspecified; M48.00 Spinal stenosis, site unspecified; G62.0 Drug-induced polyneuropathy; T45.1X5A Adverse effect of antineoplastic and immunosuppressive drugs, initial encounter; E66.9 Obesity, unspecified; Z68.42 Body mass index [BMI] 45.0-49.9, adult; Z20.822 Contact with and (suspected) exposure to COVID-19; Z88.1 Allergy status to other antibiotic agents; Z88.8 Allergy status to other drugs, medicaments and biological substances; Z79.82 Long term (current) use of aspirin; Z79.4 Long term (current) use of insulin; Z79.899 Other long term (current) drug therapy; Z85.42 Personal history of malignant neoplasm of other parts of uterus; Z85.3 Personal history of malignant neoplasm of breast; Z85.038 Personal history of other malignant neoplasm of large intestine; Z98.890 Other specified postprocedural states
CPT/HCPCS: 36415; 80053; 82947; 83690; 83735; 85025; 86140; 87220; 99284; A9270; C9113; J1650; J1885; J2405; J2765; J3410; J3475; J7030; U0002; 96365; 96366; 96372; 96375; 96376; G0378

== ENCOUNTER 2021-02-15 11:59 | Inpatient (IN) | payer MEDICARE, BC ==
[2021-02-15] MEDS ORDERED: DIPHENHYDRAMINE PO PRN ×3 (16:29)
[2021-02-15] MEDS ORDERED: ALUM HYDROXIDE PO PRN ×3 (16:29)
[2021-02-15] MEDS ORDERED: LIDOCAINE PO PRN ×3 (16:29)
[2021-02-15] MEDS ORDERED: MAG HYDROXIDE PO PRN ×3 (16:29)
[2021-02-15] MEDS ORDERED: Naloxone 0.4 MG/ML SDV IM PRN (16:32)
[2021-02-15] MEDS ORDERED: Ondansetron 4 MG Tab.DIS PO PRN (16:32)
[2021-02-15] MEDS ORDERED: Acetaminophen 325 MG Tab PO PRN (16:32)
[2021-02-15] MEDS ORDERED: Nystatin Crm 30 GM Tube TOP PRN (16:32)
[2021-02-15] MEDS ORDERED: Glucagon,Human Recombinant 1 MG Vial IM PRN (16:37)
[2021-02-15] MEDS ORDERED: 50% Dextrose in Water 50 ML Syringe IVPUSH PRN (16:37)
[2021-02-15] MEDS ORDERED: Polyvinyl Alcohol 1.4% Ophth Soln 15 ML Bottle EYEBOTH PRN (16:45)
[2021-02-15] MEDS ORDERED: Nystatin Crm 15 GM Tube TOP PRN (17:00)
[2021-02-15] MEDS ORDERED: Insulin Lispro 100 Unit/ML 3 ML KwikPen SUBCUT ONE (17:21)
[2021-02-15] MEDS: Insulin Lispro 100 Unit/ML 3 ML KwikPen SUBCUT SCH (17:29)
[2021-02-15] MEDS: metFORMIN 1,000 MG Tab PO SCH (17:30)
--- NOTE | 2021-02-15 17:37 | PCM.HP.2 ---
H&P History of Present Illness - General Date of Service: 02/15/21 Admit Problem/Dx: Admission Diagnosis/Problem Admission Diagnosis/Problem Weakness Source of Information: Patient, Family, Old Records History Limitations: Reports: No Limitations - History of Present Illness Initial Comments - Free Text/Narative: Tali presents for swing bed admission for further rehab therapy. She was found to have aggressive bone lesion November 2020, sent up to [place] for treatment. She underwent biopsy which showed metastatic endometrial carcinoma, her initial endometrial cancer was diagnosed last year. She had radiation therapy, helped with her bone pain but had radiation neuropathy & gastritis. She was on Dexamethasone 4mg bid and just had dose decreased to 1 mg bid yesterday. She has had multiple admissions for nausea, vomiting over the past 2 months. She has been at [facility] getting intensive therapy for past 3 weeks. Had negative EKG & echocardiogram for chest pain, elevated troponin. She was taken off Lasix last week per family, and they were using [place]arrow lymphedema wraps there. She has had increased edema since Lasix was discontinued. Family is concerned since she has been on that for years but understand that it was discontinued due to dehydration and Tali was not keeping up on her water intake. She states she still has nausea but no vomiting, or diarrhea. Has not used Zofran since February 02 or Trazodone since January 28. She was started on Zoloft in addition to her Cymbalta about 2 weeks ago. Megace was started 3 weeks ago but at 80 mg bid not at the 400 mg dose for appetite stimulation. Family state that she has lost about 30 lbs in the last 3 weeks. They had changed her therapy to 1.5 hours at a time as she was getting more fatigued. She was 20 days at [facility], she had anticipated going back to [facility] yesterday but given the assistance she would require she would not be able to go back to her apartment so continues to require further inpatient therapy. 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 Her children have been helping with their father while she has been in the hospital. - Related Data Allergies/Adverse Reactions: Allergies Allergy/AdvReac Type Severity Reaction Status Date / Time cephalexin [From Keflex] Allergy Hives Verified 01/08/21 16:06 oxycodone [From Tylox] Allergy Shortness Verified 01/08/21 16:06 of Breath Home Medications: Home Meds allopurinoL [Zyloprim] 300 mg PO DAILY 10/16/19 [History] polyethylene glycoL 3350 [MiraLAX] 17 gm PO DAILY PRN 10/16/19 [History] Ferrous Sulfate 325 mg PO DAILY 10/17/19 [History] Aspirin [Halfprin] 81 mg PO BEDTIME 12/20/20 [History] Cholecalciferol (Vitamin D3) [Vitamin D3] 2,000 unit PO DAILY 12/20/20 [History] Nystatin [Nystatin Crm] 1 applic TOP TID PRN 12/20/20 [History] metFORMIN [Glucophage] 1,000 mg PO BIDMEALS 12/20/20 [History] Acetaminophen [Tylenol] 650 mg PO Q6H PRN 02/15/21 [History] Benadryl/Maalox/Lidocaine 1:1:1 30 ml PO Q6H PRN 02/15/21 [History] Celecoxib [CeleBREX] 200 mg PO BID 02/15/21 [History] DULoxetine [Cymbalta] 60 mg PO DAILY 02/15/21 [History] Docusate Sodium 100 mg PO BID 02/15/21 [History] HYDROmorphone [Dilaudid] 2 mg PO Q4H PRN 02/15/21 [History] Insulin Lispro [HumaLOG] 0 - 15 units SUBCUT TIDMEALS 02/15/21 [History] LORazepam [Ativan] 0.25 mg PO BID PRN 02/15/21 [History] Magnesium Chloride [Mag-64] 64 mg PO DAILY 02/15/21 [History] Megestrol [Megace] 80 mg PO BID 02/15/21 [History] Naloxone [Narcan] 0.4 mg IM ASDIRECTED PRN 02/15/21 [History] Nystatin 5 ml PO TID 02/15/21 [History] Ondansetron [Zofran ODT] 4 mg PO Q4H PRN 02/15/21 [History] PEG 400/Hypromellose/Glycerin [Dry Eye Relief Eye Drops] 1 drop EYEBOTH Q4H PRN 02/15/21 [History] Pantoprazole Sodium [Protonix] 40 mg PO DAILY 02/15/21 [History] Sertraline [Zoloft] 50 mg PO DAILY 02/15/21 [History] dexAMETHasone [Dexamethasone] 1 mg PO BIDMEALS 02/15/21 [History] fentaNYL [Duragesic] 50 mcg TD Q72H 02/15/21 [History] traZODone 50 mg PO BEDTIME PRN 02/15/21 [History] Past Medical History Cardiovascular History: Reports: Heart Murmur, High Cholesterol, Other (See Below) Other Cardiovascular History: cardiolyte stress test positive but angiogram that followed was negative. 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 Neurological History: Reports: Neuropathy, Diabetic, Neuropathy, Peripheral Psychiatric History: Reports: Depression Endocrine/Metabolic History: Reports: Diabetes, Type II, Hypothyroidism, Obesity/BMI 30+ Hematologic History: Reports: Blood Transfusion(s), Iron Deficiency Oncologic (Cancer) History: Reports: Breast, Colon, Uterine - Infectious Disease History Infectious Disease History: Reports: Chicken Pox, Measles, Mumps, Shingles - Past Surgical History HEENT Surgical History: Reports: Eye Surgery, Tonsillectomy Other HEENT Surgeries/Procedures: bilat cataract, thyroidectomy. Sees best with left eye. Other Cardiovascular Surgeries/Procedures: angiogram OK 10-15yrs ago GI Surgical History: Reports: Colon, Colonoscopy Female Surgical History: Reports: Hysterectomy Other Female Surgeries/Procedures: ovarian cyst Endocrine Surgical History: Reports: Thyroidectomy Musculoskeletal Surgical History: Reports: Knee Replacement Other Musculoskeletal Surgeries/Procedures:: bilat knee replacement Oncologic Surgical History: Reports: Other (See Below) Other Oncologic Surgeries/Procedures: colon resection, bilat mastectomy, hysterectomy for uterine cancer Social & Family History - Family History Family Medical History: No Pertinent Family History - Tobacco Use Tobacco Use Status *Q: Never Tobacco User - Caffeine Use Caffeine Use: Reports: Coffee Caffeine Use Comment: unable to taste for last 2 weeks - Recreational Drug Use Recreational Drug Use: No - Living Situation & Occupation Living situation: Reports: Occupation: Retired H&P Review of Systems - Review of Systems: Review Of Systems: See Below General: Reports: Weakness, Decreased Appetite, Weight Loss. Denies: Fever, Chills HEENT: Reports: No Symptoms Pulmonary: Reports: No Symptoms Cardiovascular: Reports: Dyspnea on Exertion, Edema. Denies: Chest Pain Gastrointestinal: Reports: Abdominal Pain (epigastric, mild), Decreased Appetite, Nausea. Denies: Constipation, Diarrhea Genitourinary: Reports: No Symptoms Musculoskeletal: Reports: Back Pain Skin: Reports: Bruising (left arm) Psychiatric: Reports: Depression Neurological: Reports: No Symptoms Hematologic/Lymphatic: Reports: Easy Bruising Exam - Exam Exam: See Below - Vital Signs Vital Signs: Last Vital Signs Temp 98.1 F 02/15/21 14:15 Pulse Resp 16 02/15/21 14:15 BP 133/81 02/15/21 14:15 Pulse Ox 95 02/15/21 14:15 Weight: 253 lb - Exam General: Alert, Oriented, Cooperative. No: Mild Distress HEENT: PERRLA, Conjunctiva Clear, Hearing Intact Neck: Trachea Midline Lungs: Clear to Auscultation, Normal Respiratory Effort Cardiovascular: Regular Rate, Regular Rhythm, Systolic Murmur GI/Abdominal Exam: Normal Bowel Sounds, Soft, No Distention, Guarding, Tender (epigastric). No: Rigid, Rebound (Female) Exam: Deferred Rectal (Female) Exam: Deferred Extremities: Pedal Edema (2+ BLE, no dermatosclerosis) Peripheral Pulses: 2+: Radial (L), Radial (R) - Patient Data Lab Results Last 24 hrs: Laboratory Results - last 24 hr 02/15/21 Range/Units 17:15 POC Glucose 116 D (80-116) mg/dL Sepsis Event Note - Evaluation Sepsis Screening Result: No Definite Risk - Focused Exam Vital Signs: Vital Signs Temp Resp BP Pulse Ox 02/15/21 14:15 98.1 F 16 133/81 95 - Problem List (1) Cancer, metastatic to bone Status: Acute Current Visit: Yes Onset Date: ~11/2020 (2) Weakness SNOMED Code(s): 52636678 ICD Code: R53.1 - WEAKNESS Status: Acute Current Visit: No (3) Diabetes type 2, controlled SNOMED Code(s): 26970554, 319249007 ICD Code: E11.9 - TYPE 2 DIABETES MELLITUS WITHOUT COMPLICATIONS Status: Chronic Current Visit: No (4) History of breast cancer SNOMED Code(s): 976743607 ICD Code: Z85.3 - PERSONAL HISTORY OF MALIGNANT NEOPLASM OF BREAST Status: Chronic Current Visit: No (5) History of colon cancer SNOMED Code(s): 469879502 ICD Code: Z85.038 - PERSONAL HISTORY OF MALIGNANT NEOPLASM OF LARGE INTESTINE Status: Chronic Current Visit: No (6) History of uterine cancer SNOMED Code(s): 709995649 ICD Code: Z85.42 - PERSONAL HISTORY OF MALIGNANT NEOPLASM OF OTH PRT UTERUS Status: Chronic Current Visit: No Onset Date: ~2019 (7) Obesity SNOMED Code(s): 735983468, 915849809 ICD Code: E66.9 - OBESITY, UNSPECIFIED Status: Chronic Current Visit: No Qualifiers: Body mass index: BMI 45.0-49.9 (8) Pathological fracture of sacral vertebra SNOMED Code(s): 15445026784004174 ICD Code: M84.48XA - PATHOLOGICAL FRACTURE, OTHER SITE, INIT ENCNTR FOR FRACTURE Status: Chronic Current Visit: No Problem Details: MRI Lumbar without contrast: Aggressive appearing lesion involving the S1 & S2 segments with ventral epidural soft tissue component causing sever canal & right subarticular recess stenosis. Biopsy showed metastatic endometrial cancer, received radiation therapy, complicated by radiation neuropathy & radiation gastritis. 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 SNOMED Code(s): 835485236 ICD Code: G62.0 - DRUG-INDUCED POLYNEUROPATHY; T45.1X5A - ADVERSE EFFECT OF ANTINEOPLASTIC AND IMMUNOSUP DRUGS, INIT Status: Chronic Current Visit: No (10) Spinal stenosis SNOMED Code(s): 67226315 ICD Code: M48.00 - SPINAL STENOSIS, SITE UNSPECIFIED Status: Chronic Current Visit: No Problem List Initiated/Reviewed/Updated: Yes Orders Last 24hrs: Active Orders 24 hr Category Date Time Status Patient Status [ADT] Routine ADT 02/15/21 14:57 Active Blood Glucose Check, Bedside [RC] 07,11,17,21 Care 02/15/21 14:57 Active Height and Weight [RC] FR Care 02/15/21 14:57 Active Oxygen Therapy [RC] .PRN Care 02/15/21 14:57 Active Up With Assistance [RC] ASDIRECTED Care 02/15/21 14:57 Active Up to Chair [RC] TIDMEALS Care 02/15/21 14:57 Active Vital Signs [RC] 08 Care 02/15/21 14:57 Active OT Evaluation and Treatment [CONS] Routine Cons 02/15/21 14:57 Active PT Evaluation and Treatment [CONS] Routine Cons 02/15/21 14:57 Active Consistent Carbohydrate Diet [DIET] Diet 02/15/21 Dinner Active Acetaminophen [TylenoL] Med 02/15/21 16:32 Active 650 mg PO Q6H PRN Alum Hydroxide/Mag Hydroxide [Mag-Al Susp] 10 ml Med 02/15/21 16:29 Active Lidocaine 2% [Xylocaine 2% Viscous] 10 ml diphenhydrAMINE [Benadryl] 25 mg PO Q6H Aspirin [Halfprin] Med 02/15/21 21:00 Active 81 mg PO BEDTIME Cholecalciferol (Vitamin D3) [Vitamin D3] Med 02/16/21 09:00 Active 50 mcg PO DAILY DULoxetine [Cymbalta] Med 02/16/21 09:00 Active 60 mg PO DAILY Dextrose 50% in Water Med 02/15/21 16:37 Active 50 ml IVPUSH ASDIRECTED PRN Docusate Sodium [Colace] Med 02/15/21 21:00 Active 100 mg PO BID Ferrous Sulfate Med 02/16/21 09:00 Active 325 mg PO DAILY Furosemide [Lasix] Med 02/18/21 09:00 Active 40 mg PO MOWEFR Furosemide [Lasix] Med 02/16/21 08:00 Once 40 mg PO ONETIME ONE Glucagon,Human Recombinant [GlucaGen] Med 02/15/21 16:37 Active 1 mg IM ASDIRECTED PRN HYDROmorphone [Dilaudid] Med 02/15/21 16:32 Active 2 mg PO Q4H PRN Insulin Lispro [HumaLOG] Med 02/15/21 18:00 Active See Protocol SUBCUT TIDMEALS Magnesium Chloride [Mag-64] Med 02/16/21 09:00 Active 64 mg PO DAILY Megestrol [Megace] Med 02/15/21 21:00 Active 80 mg PO BID Naloxone [Narcan] Med 02/15/21 16:32 Active 0.4 mg IM ASDIRECTED PRN Nystatin [Mycostatin] Med 02/15/21 21:00 Active 5 ml PO TID Nystatin [Nystatin Crm] Med 02/15/21 17:00 Active 0 gm TOP TID PRN Ondansetron [Zofran ODT] Med 02/15/21 16:32 Active 4 mg PO Q4H PRN Pantoprazole [ProTONIX] Med 02/16/21 06:00 Active 40 mg PO DAILY@0600 Polyvinyl Alcohol [LiquiTears 1.4% Ophth Soln] Med 02/15/21 16:45 Active 0 ml EYEBOTH Q4H PRN Sertraline [Zoloft] Med 02/16/21 09:00 Active 50 mg PO DAILY allopurinoL [Zyloprim] Med 02/16/21 09:00 Active 300 mg PO DAILY dexAMETHasone Med 02/15/21 18:00 Active 1 mg PO BIDMEALS fentaNYL [Duragesic] Med 02/18/21 08:00 Active 50 mcg TRDERM Q72H metFORMIN [Glucophage] Med 02/15/21 18:00 Active 1,000 mg PO BIDMEALS polyethylene glycoL 3350 [MiraLAX] Med 02/15/21 16:32 Active 17 gm PO DAILY PRN Resuscitation Status Routine Resus Stat 02/15/21 14:57 Ordered Medication Orders Acetaminophen (Acetaminophen 325 Mg Tab) 650 mg PO Q6H PRN PRN Reason: MILD PAIN (1-3/10) Allopurinol (Allopurinol 300 Mg Tab) 300 mg PO DAILY [facility] Artificial Tears (Polyvinyl Alcohol 1.4% Ophth Soln 15 Ml Bottle) 0 ml EYEBOTH Q4H PRN PRN Reason: Dry Eyes Aspirin (Aspirin 81 Mg Tab.Ec) 81 mg PO BEDTIME [facility]ABBY Cholecalciferol (Cholecalciferol (Vitamin D3) 25 Mcg Tab) 50 mcg PO DAILY GABBY Al Hydroxide/Mg Hydroxide 10 ml/ Lidocaine HCl 10 ml/Diphenhydramine HCl 25 mg 0 ml PO Q6H PRN PRN Reason: ORAL DISCOMFORT Dexamethasone (Dexamethasone 1 Mg Tab) 1 mg PO BIDMEALS [facility] Dextrose/Water (50% Dextrose In Water 50 Ml Syringe) 50 ml IVPUSH ASDIRECTED PRN PRN Reason: Hypoglycemia Docusate Sodium (Docusate Sodium 100 Mg Cap) 100 mg PO BID [facility] Duloxetine HCl (Duloxetine 60 Mg Cap) 60 mg PO DAILY [facility] Fentanyl (Fentanyl 50 Mcg/Hr Transdermal Patch) 50 mcg TRDERM Q72H [facility] Ferrous Sulfate (Ferrous Sulfate 325 Mg Tab) 325 mg PO DAILY [facility] Furosemide (Furosemide 40 Mg Tab) 40 mg PO ONETIME ONE Stop: 02/16/21 08:01 Furosemide (Furosemide 40 Mg Tab) 40 mg PO MOWEFR [facility] Glucagon (Glucagon,Human Recombinant 1 Mg Vial) 1 mg IM ASDIRECTED PRN PRN Reason: Hypoglycemia Hydromorphone HCl (Hydromorphone 2 Mg Tab) 2 mg PO Q4H PRN PRN Reason: PAIN 6-10/10 Insulin Human Lispro (Insulin Lispro 100 Unit/Ml 3 Ml Kwikpen) 0 unit SUBCUT TIDMEALS [facility]; Protocol Magnesium Chloride (Magnesium Chloride 64 Mg Tab.Er) 64 mg PO DAILY [facility] Megestrol Acetate (Megestrol 40 Mg Tab) 80 mg PO BID [facility] Metformin HCl (Metformin 1,000 Mg Tab) 1,000 mg PO BIDMEALS [facility] Naloxone HCl (Naloxone 0.4 Mg/Ml Sdv) 0.4 mg IM ASDIRECTED PRN PRN Reason: Respiratory Depression Nystatin (Nystatin Susp 100,000 Unit/Ml 5 Ml Ud Cup) 5 ml PO TID [facility] Stop: 02/22/21 21:01 Nystatin (Nystatin Crm 15 Gm Tube) 0 gm TOP TID PRN PRN Reason: Rash Ondansetron HCl (Ondansetron 4 Mg Tab.Dis) 4 mg PO Q4H PRN PRN Reason: Nausea/Vomiting Pantoprazole Sodium (Pantoprazole 40 Mg Tab.Cr) 40 mg PO DAILY@0600 [facility] Polyethylene Glycol (Polyethylene Glycol 3350 Powder 17 Gm Packet) 17 gm PO DAILY PRN PRN Reason: Constipation Sertraline HCl (Sertraline 50 Mg Tab) 50 mg PO DAILY [facility] Assessment/Plan Comment:: 1. Swing bed admission for further rehab services secondary to weakness, metastatic endometrial cancer diagnosed 11/2020. 2. Weakness: PT/OT evaluate & treat on Thursday. 3. Metastatic endometrial cancer to bone: pain control Fentanyl patch q72h, changed today. Hydromorphone 2 mg q4h as needed. Dexamethasone 1 mg bid. Discontinue Celebrex as has not been helping and has only been on since November for her back pain prior to finding bone mets since she is already on steroid for bone pain. 4. Peripheral edema/lymphedema: Family will bring in her [place] wraps for her lymphedema. Given her decreased appetite, will restart Lasix Mon, Wed, Fri and give her a dose tomorrow, recheck her potassium next week to see if need to replace potassium. 5. DM: Accuchecks qidac&hs. Humalog high dose sliding scale, metformin. Will monitor her BS as her dexamethasone dose was decreased and adjust her meds accordingly. 6. Diet: Consistent carb diet, family may bring in snacks/meals to help with her appetite. She is on Megace but at chemo dose not appetite dose, will adjust if needed. Discontinue Trazodone since she has not used since January 28 and recently had Zoloft started to avoid serotonin syndrome. 7. Activity: up with assistance & to chair. 8. CODE STATUS: FULL. 9. Discharge planning: Plan to continue therapy and transition her back to her [facility] apartment with her . - Mortality Measure Prognosis:: Poor
[2021-02-15] MEDS: Nystatin Susp 100,000 Unit/ML 5 ML UD Cup PO SCH (21:01)
[2021-02-15] MEDS: Megestrol 40 MG Tab PO SCH (21:01)
[2021-02-15] MEDS: Docusate Sodium 100 MG Cap PO SCH (21:01)
[2021-02-15] MEDS: Aspirin 81 MG Tab.EC PO SCH (21:01)
[2021-02-16] MEDS: Pantoprazole 40 MG Tab.CR PO SCH (05:01)
[2021-02-16] MEDS: HYDROmorphone 2 MG Tab PO PRN (06:35)
[2021-02-16] MEDS ORDERED: Furosemide 40 MG Tab PO ONE (08:00)
[2021-02-16] MEDS: Insulin Lispro 100 Unit/ML 3 ML KwikPen SUBCUT SCH ×3 (08:26→17:29)
[2021-02-16] MEDS: metFORMIN 1,000 MG Tab PO SCH ×2 (08:31→17:27)
[2021-02-16] MEDS: Docusate Sodium 100 MG Cap PO SCH ×2 (08:33→20:34)
[2021-02-16] MEDS: Allopurinol 300 MG Tab PO SCH (08:35)
[2021-02-16] MEDS: Cholecalciferol (Vitamin D3) 25 MCG Tab PO SCH (08:35)
[2021-02-16] MEDS: Nystatin Susp 100,000 Unit/ML 5 ML UD Cup PO SCH ×3 (08:36→20:35)
[2021-02-16] MEDS: Sertraline 50 MG Tab PO SCH (08:37)
[2021-02-16] MEDS: Magnesium Chloride 64 MG Tab.ER PO SCH (08:38)
[2021-02-16] MEDS: Ferrous Sulfate 325 MG Tab PO SCH (08:39)
[2021-02-16] MEDS: Megestrol 40 MG Tab PO SCH ×2 (08:39→20:35)
[2021-02-16] MEDS: DULoxetine 60 MG Cap PO SCH (08:40)
[2021-02-16] MEDS: Aspirin 81 MG Tab.EC PO SCH (20:35)
[2021-02-17] MEDS: Pantoprazole 40 MG Tab.CR PO SCH ×2 (05:40→20:31)
[2021-02-17] MEDS: Nystatin Susp 100,000 Unit/ML 5 ML UD Cup PO SCH ×3 (08:07→20:27)
[2021-02-17] MEDS: metFORMIN 1,000 MG Tab PO SCH ×2 (08:08→17:49)
[2021-02-17] MEDS: Insulin Lispro 100 Unit/ML 3 ML KwikPen SUBCUT SCH ×3 (08:09→17:44)
[2021-02-17] MEDS: Docusate Sodium 100 MG Cap PO SCH ×2 (08:10→20:31)
[2021-02-17] MEDS: DULoxetine 60 MG Cap PO SCH (08:11)
[2021-02-17] MEDS: Ferrous Sulfate 325 MG Tab PO SCH (08:11)
[2021-02-17] MEDS: Magnesium Chloride 64 MG Tab.ER PO SCH (08:12)
[2021-02-17] MEDS: Megestrol 40 MG Tab PO SCH ×2 (08:12→20:28)
[2021-02-17] MEDS: Cholecalciferol (Vitamin D3) 25 MCG Tab PO SCH (08:13)
[2021-02-17] MEDS: Allopurinol 300 MG Tab PO SCH (08:14)
[2021-02-17] MEDS: Sertraline 50 MG Tab PO SCH ×2 (08:14→08:21)
[2021-02-17] MEDS: HYDROmorphone 2 MG Tab PO PRN (09:49)
--- NOTE | 2021-02-17 14:53 | PCM.PN ---
- General Info Date of Service: 02/17/21 Subjective Update: Tali has been more sleepy the last few days, her daughter feels that it has been increasing since Zoloft was started. Tali and family don't feel that it has helped and would like discontinued. They understand that it has to be weaned off. She has not required any Zofran so far since admission and had not used it at [facility] since Feb 02. States her stomach feels "icky", also having some hoarseness of her upper throat, she had gotten thrush after Dexamethasone was started and wonder if it has gotten into her throat. Feels like pills are sticking in her throat. Tali and her daughter both stated that she was moving more when they had her on scheduled Dilaudid at both facilities in [place] rather than doing PRN dosing. She had not used prn much toward the end of her [facility] stay. She has used a couple doses here but then sleeps after getting. She has been on iron, been having dark stools with this, we do not have Hemosure testing so fecal occult we do have would likely be positive due to iron supplements. - Patient Data Vitals - Most Recent: Last Vital Signs Temp 98.8 F 02/17/21 08:00 Pulse 93 02/17/21 08:00 Resp 15 02/17/21 08:00 BP 128/61 02/17/21 08:00 Pulse Ox 94 L 02/17/21 08:00 Weight - Most Recent: 253 lb Lab Results Last 24 Hours: Laboratory Results - last 24 hr 02/16/21 02/16/21 02/17/21 Range/Units 17:01 20:42 06:05 POC Glucose 144 H 162 H 124 H (80-116) mg/dL 02/17/21 Range/Units 11:52 POC Glucose 128 H (80-116) mg/dL Med Orders - Current: Current Medications Acetaminophen (Acetaminophen 325 Mg Tab) 650 mg PO Q6H PRN PRN Reason: MILD PAIN (1-11/07) Allopurinol (Allopurinol 300 Mg Tab) 300 mg PO DAILY [facility] Last Admin: 02/17/21 08:14 Dose: 300 mg Documented by: Artificial Tears (Polyvinyl Alcohol 1.4% Ophth Soln 15 Ml Bottle) 0 ml EYEBOTH Q4H PRN PRN Reason: Dry Eyes Aspirin (Aspirin 81 Mg Tab.Ec) 81 mg PO BEDTIME [facility] Last Admin: 02/16/21 20:35 Dose: 81 mg Documented by: Cholecalciferol (Cholecalciferol (Vitamin D3) 25 Mcg Tab) 50 mcg PO DAILY [facility] Last Admin: 02/17/21 08:13 Dose: 50 mcg Documented by: Al Hydroxide/Mg Hydroxide 10 ml/ Lidocaine HCl 10 ml/Diphenhydramine HCl 25 mg 0 ml PO Q6H PRN PRN Reason: ORAL DISCOMFORT Dexamethasone (Dexamethasone 1 Mg Tab) 1 mg PO BIDMEALS [facility] Last Admin: 02/17/21 08:07 Dose: 1 mg Documented by: Dextrose/Water (50% Dextrose In Water 50 Ml Syringe) 50 ml IVPUSH ASDIRECTED PRN PRN Reason: Hypoglycemia Docusate Sodium (Docusate Sodium 100 Mg Cap) 100 mg PO BID [facility] Last Admin: 02/17/21 08:10 Dose: 100 mg Documented by: Duloxetine HCl (Duloxetine 60 Mg Cap) 60 mg PO DAILY [facility] Last Admin: 02/17/21 08:11 Dose: 60 mg Documented by: Fentanyl (Fentanyl 50 Mcg/Hr Transdermal Patch) 50 mcg TRDERM Q72H [facility] Ferrous Sulfate (Ferrous Sulfate 325 Mg Tab) 325 mg PO DAILY [facility] Last Admin: 02/17/21 08:11 Dose: 325 mg Documented by: Furosemide (Furosemide 40 Mg Tab) 40 mg PO MOWEFR [facility] Glucagon (Glucagon,Human Recombinant 1 Mg Vial) 1 mg IM ASDIRECTED PRN PRN Reason: Hypoglycemia Hydromorphone HCl (Hydromorphone 2 Mg Tab) 2 mg PO Q4H PRN PRN Reason: PAIN 6-10/10 Last Admin: 02/17/21 09:49 Dose: 2 mg Documented by: Hydromorphone HCl (Hydromorphone 2 Mg Tab) 1 mg PO Q12H [facility] Insulin Human Lispro (Insulin Lispro 100 Unit/Ml 3 Ml Kwikpen) 0 unit SUBCUT TIDMEALS [facility]; Protocol Last Admin: 02/17/21 12:22 Dose: Not Given Documented by: Magnesium Chloride (Magnesium Chloride 64 Mg Tab.Er) 64 mg PO DAILY [facility] Last Admin: 02/17/21 08:12 Dose: 64 mg Documented by: Megestrol Acetate (Megestrol 40 Mg Tab) 80 mg PO BID [facility] Last Admin: 02/17/21 08:12 Dose: 80 mg Documented by: Metformin HCl (Metformin 1,000 Mg Tab) 1,000 mg PO BIDMEALS [facility] Last Admin: 02/17/21 08:08 Dose: 1,000 mg Documented by: Naloxone HCl (Naloxone 0.4 Mg/Ml Sdv) 0.4 mg IM ASDIRECTED PRN PRN Reason: Respiratory Depression Nystatin (Nystatin Susp 100,000 Unit/Ml 5 Ml Ud Cup) 5 ml PO TID [facility] Stop: 02/22/21 21:01 Last Admin: 02/17/21 13:07 Dose: 5 ml Documented by: Nystatin (Nystatin Crm 15 Gm Tube) 0 gm TOP TID PRN PRN Reason: Rash Ondansetron HCl (Ondansetron 4 Mg Tab.Dis) 4 mg PO Q4H PRN PRN Reason: Nausea/Vomiting Pantoprazole Sodium (Pantoprazole 40 Mg Tab.Cr) 40 mg PO BID@0730,2100 [facility] Polyethylene Glycol (Polyethylene Glycol 3350 Powder 17 Gm Packet) 17 gm PO DAILY PRN PRN Reason: Constipation Sertraline HCl (Sertraline 50 Mg Tab) 50 mg PO Q48H [facility] Stop: 02/21/21 20:01 Discontinued Medications Furosemide (Furosemide 40 Mg Tab) 40 mg PO ONETIME ONE Stop: 02/16/21 08:01 Last Admin: 02/16/21 08:31 Dose: 40 mg Documented by: Nystatin (Nystatin Crm 30 Gm Tube) 0 gm TOP TID PRN PRN Reason: Rash Pantoprazole Sodium (Pantoprazole 40 Mg Tab.Cr) 40 mg PO DAILY@0600 [facility] Last Admin: 02/17/21 05:40 Dose: 40 mg Documented by: Sertraline HCl (Sertraline 50 Mg Tab) 50 mg PO DAILY [facility] Last Admin: 02/17/21 08:21 Dose: Not Given Documented by: Sertraline HCl (Sertraline 50 Mg Tab) 50 mg PO BEDTIME [facility] - Exam General: Alert, Oriented, Cooperative, No Acute Distress Lungs: Clear to Auscultation, Normal Respiratory Effort, Decreased Breath Sounds (bibasilar). No: Crackles, Wheezing Cardiovascular: Regular Rate, Regular Rhythm GI/Abdominal Exam: Normal Bowel Sounds, Soft, No Distention, Guarding, Tender (epigastrium). No: Rigid, Rebound Extremities: Pedal Edema (2+ BLE), Pallor Peripheral Pulses: 2+: Radial (L), Radial (R) - Patient Data Lab Results Last 24 hrs: Laboratory Results - last 24 hr 02/16/21 02/16/21 02/17/21 Range/Units 17:01 20:42 06:05 POC Glucose 144 H 162 H 124 H (80-116) mg/dL 02/17/21 Range/Units 11:52 POC Glucose 128 H (80-116) mg/dL Sepsis Event Note - Evaluation Sepsis Screening Result: No Definite Risk - Focused Exam Vital Signs: Vital Signs Temp Pulse Resp BP Pulse Ox 02/17/21 08:00 98.8 F 93 15 128/61 94 L - Problem List & Annotations (1) Cancer, metastatic to bone Status: Acute Current Visit: Yes Onset Date: ~11/2020 (2) Weakness SNOMED Code(s): 64796418 Code(s): R53.1 - WEAKNESS Status: Acute Current Visit: No (3) Diabetes type 2, controlled SNOMED Code(s): 39427620, 254963578 Code(s): E11.9 - TYPE 2 DIABETES MELLITUS WITHOUT COMPLICATIONS Status: Chronic Current Visit: No (4) History of breast cancer SNOMED Code(s): 000425676 Code(s): Z85.3 - PERSONAL HISTORY OF MALIGNANT NEOPLASM OF BREAST Status: Chronic Current Visit: No (5) History of colon cancer SNOMED Code(s): 033594664 Code(s): Z85.038 - PERSONAL HISTORY OF MALIGNANT NEOPLASM OF LARGE INTESTINE Status: Chronic Current Visit: No (6) History of uterine cancer SNOMED Code(s): 305226714 Code(s): Z85.42 - PERSONAL HISTORY OF MALIGNANT NEOPLASM OF OTH PRT UTERUS Status: Chronic Current Visit: No Onset Date: ~2019 (7) Obesity SNOMED Code(s): 674466775, 760600043 Code(s): E66.9 - OBESITY, UNSPECIFIED Status: Chronic Current Visit: No Qualifiers: Body mass index: BMI 45.0-49.9 (8) Pathological fracture of sacral vertebra SNOMED Code(s): 63762735617154912 Code(s): M84.48XA - PATHOLOGICAL FRACTURE, OTHER SITE, INIT ENCNTR FOR FRACTURE Status: Chronic Current Visit: No Annotation/Comment:: MRI Lumbar without contrast: Aggressive appearing lesion involving the S1 & S2 segments with ventral epidural soft tissue component causing sever canal & right subarticular recess stenosis. Biopsy showed metastatic endometrial cancer, received radiation therapy, complicated by radiation neuropathy & radiation gastritis. 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 SNOMED Code(s): 120774640 Code(s): G62.0 - DRUG-INDUCED POLYNEUROPATHY; T45.1X5A - ADVERSE EFFECT OF ANTINEOPLASTIC AND IMMUNOSUP DRUGS, INIT Status: Chronic Current Visit: No (10) Spinal stenosis SNOMED Code(s): 23007596 Code(s): M48.00 - SPINAL STENOSIS, SITE UNSPECIFIED Status: Chronic Current Visit: No (11) Peripheral edema SNOMED Code(s): 169955789 Code(s): R60.9 - EDEMA, UNSPECIFIED Status: Chronic Current Visit: Yes - Problem List Review Problem List Initiated/Reviewed/Updated: Yes - My Orders Last 24 Hours: My Active Orders 02/17/21 20:00 Sertraline [Zoloft] 50 mg PO Q48H 02/17/21 21:00 HYDROmorphone [Dilaudid] 1 mg PO Q12H Pantoprazole [ProTONIX] 40 mg PO BID@0730,2100 02/18/21 08:00 fentaNYL [Duragesic] 50 mcg TRDERM Q72H 02/18/21 09:00 Furosemide [Lasix] 40 mg PO MOWEFR - Plan Plan:: 1. Weakness: PT/OT evaluate & treat on Thursday. 2. Metastatic endometrial cancer to bone: pain control Fentanyl patch q72h, changed today. Add Hydromorphone 1 mg q12h, Hydromorphone 2 mg q4h as needed, if she is not using as needed doses after 3 days then will discontinue. Dexamethas one 1 mg bid. Stated Celebrex didn't help and hasn't noticed any change to the pain since it was stopped. 3. Peripheral edema/lymphedema: Family will bring in her Farrow wraps for her lymphedema. Lasix dose yesterday, then Mon, Wed, Thu. If her eating and drinking lemon picker then will consider going to daily dosing with supplemental potassium. 4. DM: Accuchecks qidac&hs. Humalog low dose sliding scale, metformin. Has not needed Humalog sliding scale, if continues to not utilize this will discontinue. 5. Oversedation: family would like to wean her off the Zoloft feels it is making things worse, she received dose yesterday morning, refused this am dose, in agreement to move to bedtime tonight and will give every 48 h x 3 doses then discontinue. 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 7. Discharge planning: Plan to continue therapy and transition her back to her [facility] apartment with her .
[2021-02-17] MEDS ORDERED: Sertraline 50 MG Tab PO SCH ×2 (20:00→21:00)
[2021-02-17] MEDS: HYDROmorphone 2 MG Tab PO SCH (20:27)
[2021-02-17] MEDS: Aspirin 81 MG Tab.EC PO SCH (20:28)
[2021-02-18] MEDS: Pantoprazole 40 MG Tab.CR PO SCH ×2 (06:30→20:55)
[2021-02-18] MEDS: Insulin Lispro 100 Unit/ML 3 ML KwikPen SUBCUT SCH ×3 (08:00→17:38)
[2021-02-18] MEDS: Magnesium Chloride 64 MG Tab.ER PO SCH (08:08)
[2021-02-18] MEDS: Allopurinol 300 MG Tab PO SCH (08:08)
[2021-02-18] MEDS: Furosemide 40 MG Tab PO SCH (08:08)
[2021-02-18] MEDS: Cholecalciferol (Vitamin D3) 25 MCG Tab PO SCH (08:09)
[2021-02-18] MEDS: Megestrol 40 MG Tab PO SCH ×2 (08:09→21:00)
[2021-02-18] MEDS: metFORMIN 1,000 MG Tab PO SCH ×2 (08:09→17:55)
[2021-02-18] MEDS: Ferrous Sulfate 325 MG Tab PO SCH (08:10)
[2021-02-18] MEDS: DULoxetine 60 MG Cap PO SCH (08:11)
[2021-02-18] MEDS: Nystatin Susp 100,000 Unit/ML 5 ML UD Cup PO SCH ×3 (08:22→21:00)
[2021-02-18] MEDS: HYDROmorphone 2 MG Tab PO SCH ×2 (08:36→20:57)
[2021-02-18] MEDS: fentaNYL 50 MCG/HR Transdermal Patch TRDERM SCH (09:57)
[2021-02-18] MEDS: Potassium Chloride 20 MEQ Tab.ER PO SCH (09:59)
[2021-02-18] MEDS: Docusate Sodium 100 MG Cap PO SCH ×2 (10:05→20:56)
[2021-02-18] MEDS: Acetaminophen 500 MG Tab PO SCH ×2 (11:08→20:56)
[2021-02-18] MEDS: Dexamethasone 2 MG Tab PO SCH (17:56)
[2021-02-18] MEDS: Aspirin 81 MG Tab.EC PO SCH (20:55)
[2021-02-19] MEDS: Pantoprazole 40 MG Tab.CR PO SCH ×2 (07:30→20:30)
[2021-02-19] MEDS: Nystatin Susp 100,000 Unit/ML 5 ML UD Cup PO SCH ×3 (09:18→20:30)
[2021-02-19] MEDS: Magnesium Chloride 64 MG Tab.ER PO SCH (09:19)
[2021-02-19] MEDS: DULoxetine 60 MG Cap PO SCH (09:21)
[2021-02-19] MEDS: Ferrous Sulfate 325 MG Tab PO SCH (09:21)
[2021-02-19] MEDS: Allopurinol 300 MG Tab PO SCH (09:21)
[2021-02-19] MEDS: Acetaminophen 500 MG Tab PO SCH ×2 (09:23→20:30)
[2021-02-19] MEDS: Dexamethasone 2 MG Tab PO SCH ×2 (09:23→17:55)
[2021-02-19] MEDS: Cholecalciferol (Vitamin D3) 25 MCG Tab PO SCH (09:24)
[2021-02-19] MEDS: Insulin Lispro 100 Unit/ML 3 ML KwikPen SUBCUT SCH ×3 (09:24→17:24)
[2021-02-19] MEDS: metFORMIN 1,000 MG Tab PO SCH ×2 (09:24→17:54)
[2021-02-19] MEDS: Megestrol 40 MG Tab PO SCH ×2 (09:25→20:29)
[2021-02-19] MEDS: HYDROmorphone 2 MG Tab PO PRN (09:30)
[2021-02-19] MEDS: HYDROmorphone 2 MG Tab PO SCH ×2 (09:36→20:30)
[2021-02-19] MEDS: Docusate Sodium 100 MG Cap PO SCH ×2 (09:42→20:30)
[2021-02-19] MEDS ORDERED: Sertraline 25 MG Tab PO ONE (18:00)
[2021-02-19] MEDS: Aspirin 81 MG Tab.EC PO SCH (20:30)
[2021-02-20] MEDS: Pantoprazole 40 MG Tab.CR PO SCH ×2 (06:32→20:18)
[2021-02-20] MEDS: HYDROmorphone 2 MG Tab PO SCH ×2 (08:27→20:18)
[2021-02-20] MEDS: Allopurinol 300 MG Tab PO SCH (08:29)
[2021-02-20] MEDS: Megestrol 40 MG Tab PO SCH ×2 (08:30→20:18)
[2021-02-20] MEDS: Nystatin Susp 100,000 Unit/ML 5 ML UD Cup PO SCH ×3 (08:30→20:17)
[2021-02-20] MEDS: DULoxetine 60 MG Cap PO SCH (08:30)
[2021-02-20] MEDS: Docusate Sodium 100 MG Cap PO SCH ×2 (08:31→20:18)
[2021-02-20] MEDS: Potassium Chloride 20 MEQ Tab.ER PO SCH (08:31)
[2021-02-20] MEDS: Magnesium Chloride 64 MG Tab.ER PO SCH (08:32)
[2021-02-20] MEDS: metFORMIN 1,000 MG Tab PO SCH ×2 (08:32→18:15)
[2021-02-20] MEDS: Cholecalciferol (Vitamin D3) 25 MCG Tab PO SCH (08:32)
[2021-02-20] MEDS: Acetaminophen 500 MG Tab PO SCH ×2 (08:32→20:17)
[2021-02-20] MEDS: Ferrous Sulfate 325 MG Tab PO SCH (08:33)
[2021-02-20] MEDS: Furosemide 40 MG Tab PO SCH (08:33)
[2021-02-20] MEDS: Dexamethasone 2 MG Tab PO SCH ×2 (08:33→18:15)
[2021-02-20] MEDS: Insulin Lispro 100 Unit/ML 3 ML KwikPen SUBCUT SCH ×3 (08:45→18:07)
[2021-02-20] MEDS: Aspirin 81 MG Tab.EC PO SCH (20:18)
[2021-02-21] MEDS: Pantoprazole 40 MG Tab.CR PO SCH (06:32)
[2021-02-21] MEDS: Insulin Lispro 100 Unit/ML 3 ML KwikPen SUBCUT SCH ×3 (08:13→17:30)
[2021-02-21] MEDS: Nystatin Susp 100,000 Unit/ML 5 ML UD Cup PO SCH ×2 (08:14→14:56)
[2021-02-21] MEDS: HYDROmorphone 2 MG Tab PO SCH (08:15)
[2021-02-21] MEDS: fentaNYL 50 MCG/HR Transdermal Patch TRDERM SCH (08:28)
[2021-02-21] MEDS: Dexamethasone 2 MG Tab PO SCH ×2 (08:33→18:52)
[2021-02-21] MEDS: metFORMIN 1,000 MG Tab PO SCH ×2 (08:34→18:53)
[2021-02-21] MEDS: Ferrous Sulfate 325 MG Tab PO SCH (08:35)
[2021-02-21] MEDS: Megestrol 40 MG Tab PO SCH (08:35)
[2021-02-21] MEDS: Magnesium Chloride 64 MG Tab.ER PO SCH (08:36)
[2021-02-21] MEDS: DULoxetine 60 MG Cap PO SCH (08:36)
[2021-02-21] MEDS: Allopurinol 300 MG Tab PO SCH (08:36)
[2021-02-21] MEDS: Docusate Sodium 100 MG Cap PO SCH (08:37)
[2021-02-21] MEDS: Acetaminophen 500 MG Tab PO SCH (08:38)
[2021-02-21] MEDS: Cholecalciferol (Vitamin D3) 25 MCG Tab PO SCH (08:38)
[2021-02-22] MEDS: Docusate Sodium 100 MG Cap PO SCH ×3 (07:23→21:21)
[2021-02-22] MEDS: Aspirin 81 MG Tab.EC PO SCH ×2 (07:23→21:21)
[2021-02-22] MEDS: Megestrol 40 MG Tab PO SCH ×3 (07:23→21:22)
[2021-02-22] MEDS: Pantoprazole 40 MG Tab.CR PO SCH ×3 (07:23→21:21)
[2021-02-22] MEDS: Acetaminophen 500 MG Tab PO SCH ×3 (07:23→21:22)
[2021-02-22] MEDS: HYDROmorphone 2 MG Tab PO SCH ×3 (07:23→21:21)
[2021-02-22] MEDS: Nystatin Susp 100,000 Unit/ML 5 ML UD Cup PO SCH ×4 (07:23→21:22)
[2021-02-22] MEDS: Potassium Chloride 20 MEQ Tab.ER PO SCH (08:05)
[2021-02-22] MEDS: Insulin Lispro 100 Unit/ML 3 ML KwikPen SUBCUT SCH ×3 (08:06→18:09)
[2021-02-22] MEDS: metFORMIN 1,000 MG Tab PO SCH ×2 (08:06→18:09)
[2021-02-22] MEDS: Dexamethasone 2 MG Tab PO SCH ×2 (08:06→18:09)
[2021-02-22] MEDS: Cholecalciferol (Vitamin D3) 25 MCG Tab PO SCH (10:00)
[2021-02-22] MEDS: Magnesium Chloride 64 MG Tab.ER PO SCH (10:00)
[2021-02-22] MEDS: Allopurinol 300 MG Tab PO SCH (10:01)
[2021-02-22] MEDS: Furosemide 40 MG Tab PO SCH (10:01)
[2021-02-22] MEDS: DULoxetine 60 MG Cap PO SCH (10:01)
[2021-02-22] MEDS: Ferrous Sulfate 325 MG Tab PO SCH (10:01)
[2021-02-22] MEDS: Metoprolol Succinate 25 MG Tab.ER PO SCH (10:33)
[2021-02-23] MEDS: Pantoprazole 40 MG Tab.CR PO SCH ×2 (06:29→21:04)
[2021-02-23] MEDS: Insulin Lispro 100 Unit/ML 3 ML KwikPen SUBCUT SCH ×3 (09:07→17:53)
[2021-02-23] MEDS: HYDROmorphone 2 MG Tab PO SCH ×2 (09:26→21:02)
[2021-02-23] MEDS: Acetaminophen 500 MG Tab PO SCH ×2 (09:27→21:05)
[2021-02-23] MEDS: Ferrous Sulfate 325 MG Tab PO SCH (09:28)
[2021-02-23] MEDS: Magnesium Chloride 64 MG Tab.ER PO SCH (09:28)
[2021-02-23] MEDS: DULoxetine 60 MG Cap PO SCH (09:28)
[2021-02-23] MEDS: Dexamethasone 2 MG Tab PO SCH ×2 (09:29→17:54)
[2021-02-23] MEDS: Metoprolol Succinate 25 MG Tab.ER PO SCH (09:30)
[2021-02-23] MEDS: Allopurinol 300 MG Tab PO SCH (09:30)
[2021-02-23] MEDS: Docusate Sodium 100 MG Cap PO SCH ×2 (09:31→21:01)
[2021-02-23] MEDS: Cholecalciferol (Vitamin D3) 25 MCG Tab PO SCH (09:31)
[2021-02-23] MEDS: Megestrol 40 MG Tab PO SCH ×2 (09:32→21:04)
[2021-02-23] MEDS: metFORMIN 1,000 MG Tab PO SCH ×2 (09:32→17:54)
[2021-02-23] MEDS: Enoxaparin 40 MG/0.4 ML Syringe SUBCUT SCH (12:48)
[2021-02-23] MEDS: Aspirin 81 MG Tab.EC PO SCH (21:04)
[2021-02-24] MEDS: Pantoprazole 40 MG Tab.CR PO SCH ×2 (06:29→21:16)
[2021-02-24] MEDS: HYDROmorphone 2 MG Tab PO SCH ×2 (08:38→21:13)
[2021-02-24] MEDS: Dexamethasone 2 MG Tab PO SCH ×2 (08:39→18:18)
[2021-02-24] MEDS: metFORMIN 1,000 MG Tab PO SCH ×2 (08:39→18:18)
[2021-02-24] MEDS: Insulin Lispro 100 Unit/ML 3 ML KwikPen SUBCUT SCH ×3 (08:40→18:14)
[2021-02-24] MEDS: Docusate Sodium 100 MG Cap PO SCH ×2 (08:41→21:12)
[2021-02-24] MEDS: DULoxetine 60 MG Cap PO SCH (08:41)
[2021-02-24] MEDS: Magnesium Chloride 64 MG Tab.ER PO SCH (08:42)
[2021-02-24] MEDS: Ferrous Sulfate 325 MG Tab PO SCH (08:42)
[2021-02-24] MEDS: Metoprolol Succinate 25 MG Tab.ER PO SCH (08:43)
[2021-02-24] MEDS: Megestrol 40 MG Tab PO SCH ×2 (08:43→21:16)
[2021-02-24] MEDS: Acetaminophen 500 MG Tab PO SCH ×2 (08:44→21:16)
[2021-02-24] MEDS: Cholecalciferol (Vitamin D3) 25 MCG Tab PO SCH (08:44)
[2021-02-24] MEDS: Allopurinol 300 MG Tab PO SCH (08:45)
[2021-02-24] MEDS: fentaNYL 50 MCG/HR Transdermal Patch TRDERM SCH (08:50)
[2021-02-24] MEDS: Enoxaparin 40 MG/0.4 ML Syringe SUBCUT SCH (08:50)
--- NOTE | 2021-02-24 13:27 | PCM.PN ---
- General Info Date of Service: 02/24/21 Subjective Update: Tali had some brief confusion yesterday morning. States she feels better today, but thought she had a oncology appt tomorrow. Family reports that it is not until March 18 at 1015am. She is short of breath with exertion which nursing report is not new. Daughter Grisel would like her hemoglobin checked as it was 8.6 in [place]. Oncology stated they were not going to do chemo right now, would discuss at her next appointment which Tali is all anxious about. Grisel asked it they should be asking about prognosis, risks/benefits when they go, agreed that they should so they can make an informed decision. She has not used Tylenol prn since admission and last dose of Dilaudid prn was 02/19. She urinated small amount yesterday, not a good sample as there were many epithelial cells present so will get cath specimen today. Did show Ketone & protein. She had large volume urine this morning, had some overflow incontinence. Working with therapy has been hit and miss over the past week. States she coughs when she takes a deep breath. No fevers or chills. Functional Status: Reports: Pain Controlled, Tolerating Diet, Ambulating, Urinating, Incentive Spirometry - Patient Data Vitals - Most Recent: Last Vital Signs Temp 98.0 F 02/24/21 07:50 Pulse 95 02/24/21 08:43 Resp 22 H 02/24/21 07:50 BP 142/77 H 02/24/21 08:43 Pulse Ox 93 L 02/24/21 07:50 Orthostatic Blood Pressure [ 134/86 Standing] Orthostatic Blood Pressure [ 140/92 Sitting] Weight - Most Recent: 247 lb 3.2 oz Lab Results Last 24 Hours: Laboratory Results - last 24 hr 02/23/21 02/23/21 02/23/21 Range/Units 17:37 17:45 20:04 POC Glucose 195 H 197 H (80-116) mg/dL Urine Color [place] (YELLOW) Urine Appearance Slightly cloudy (CLEAR) Urine pH 5.0 (5.0-6.5) Ur Specific [place] 1.020 (1.010-1.025) Urine Protein 30 H (NEGATIVE) mg/dL Urine Glucose (UA) Normal (NORMAL) mg/dL Urine Ketones 15 H (NEGATIVE) mg/dL Urine Occult Blood Large H (NEGATIVE) Urine Nitrite Negative (NEGATIVE) Urine Bilirubin Small H (NEGATIVE) Urine Urobilinogen Normal (NEGATIVE) mg/dL Ur Leukocyte Esterase Large H (NEGATIVE) Urine RBC 40-50 H (0-5) Urine WBC 30-40 H (0-5) Ur Squamous Epith Cells Moderate H (NS,R,O) Urine Bacteria Many H (NS) 02/24/21 02/24/21 Range/Units 06:40 11:36 POC Glucose 160 H 188 H (80-116) mg/dL Urine Color (YELLOW) Urine Appearance (CLEAR) Urine pH (5.0-6.5) Ur Specific [place] (1.010-1.025) Urine Protein (NEGATIVE) mg/dL Urine Glucose (UA) (NORMAL) mg/dL Urine Ketones (NEGATIVE) mg/dL Urine Occult Blood (NEGATIVE) Urine Nitrite (NEGATIVE) Urine Bilirubin (NEGATIVE) Urine Urobilinogen (NEGATIVE) mg/dL Ur Leukocyte Esterase (NEGATIVE) Urine RBC (0-5) Urine WBC (0-5) Ur Squamous Epith Cells (NS,R,O) Urine Bacteria (NS) Med Orders - Current: Current Medications Acetaminophen (Acetaminophen 500 Mg Tab) 500 mg PO BID [facility] Last Admin: 02/24/21 08:44 Dose: 500 mg Documented by: Allopurinol (Allopurinol 300 Mg Tab) 300 mg PO DAILY [facility] Last Admin: 02/24/21 08:45 Dose: 300 mg Documented by: Artificial Tears (Polyvinyl Alcohol 1.4% Ophth Soln 15 Ml Bottle) 0 ml EYEBOTH Q4H PRN PRN Reason: Dry Eyes Aspirin (Aspirin 81 Mg Tab.Ec) 81 mg PO BEDTIME [facility] Last Admin: 02/23/21 21:04 Dose: 81 mg Documented by: Cholecalciferol (Cholecalciferol (Vitamin D3) 25 Mcg Tab) 50 mcg PO DAILY [facility] Last Admin: 02/24/21 08:44 Dose: 50 mcg Documented by: Al Hydroxide/Mg Hydroxide 10 ml/ Lidocaine HCl 10 ml/Diphenhydramine HCl 25 mg 0 ml PO Q6H PRN PRN Reason: ORAL DISCOMFORT Dexamethasone (Dexamethasone 2 Mg Tab) 2 mg PO BIDMEALS [facility] Last Admin: 02/24/21 08:39 Dose: 2 mg Documented by: Dextrose/Water (50% Dextrose In Water 50 Ml Syringe) 50 ml IVPUSH ASDIRECTED PRN PRN Reason: Hypoglycemia Docusate Sodium (Docusate Sodium 100 Mg Cap) 100 mg PO BID [facility] Last Admin: 02/24/21 08:41 Dose: 100 mg Documented by: Duloxetine HCl (Duloxetine 60 Mg Cap) 60 mg PO DAILY [facility] Last Admin: 02/24/21 08:41 Dose: 60 mg Documented by: Enoxaparin Sodium (Enoxaparin 40 Mg/0.4 Ml Syringe) 40 mg SUBCUT DAILY [facility] Last Admin: 02/24/21 08:50 Dose: 40 mg Documented by: Fentanyl (Fentanyl 50 Mcg/Hr Transdermal Patch) 50 mcg TRDERM Q72H [facility] Last Admin: 02/24/21 08:50 Dose: 50 mcg Documented by: Ferrous Sulfate (Ferrous Sulfate 325 Mg Tab) 325 mg PO DAILY [facility] Last Admin: 02/24/21 08:42 Dose: 325 mg Documented by: Furosemide (Furosemide 40 Mg Tab) 40 mg PO MOWEFR [facility] Last Admin: 02/22/21 10:01 Dose: 40 mg Documented by: Glucagon (Glucagon,Human Recombinant 1 Mg Vial) 1 mg IM ASDIRECTED PRN PRN Reason: Hypoglycemia Hydromorphone HCl (Hydromorphone 2 Mg Tab) 2 mg PO Q4H PRN PRN Reason: PAIN 6-1010 Last Admin: 02/19/21 09:30 Dose: 2 mg Documented by: Hydromorphone HCl (Hydromorphone 2 Mg Tab) 1 mg PO Q12H [facility] Last Admin: 02/24/21 08:38 Dose: 1 mg Documented by: Insulin Human Lispro (Insulin Lispro 100 Unit/Ml 3 Ml Kwikpen) 0 unit SUBCUT TIDMEALS [facility]; Protocol Last Admin: 02/24/21 12:36 Dose: 1 units Documented by: Magnesium Chloride (Magnesium Chloride 64 Mg Tab.Er) 64 mg PO DAILY [facility] Last Admin: 02/24/21 08:42 Dose: 64 mg Documented by: Megestrol Acetate (Megestrol 40 Mg Tab) 80 mg PO BID [facility] Last Admin: 02/24/21 08:43 Dose: 80 mg Documented by: Metformin HCl (Metformin 1,000 Mg Tab) 1,000 mg PO BIDMEALS [facility] Last Admin: 02/24/21 08:39 Dose: 1,000 mg Documented by: Metoprolol Succinate (Metoprolol Succinate 25 Mg Tab.Er) 12.5 mg PO DAILY [facility] Last Admin: 02/24/21 08:43 Dose: 12.5 mg Documented by: Naloxone HCl (Naloxone 0.4 Mg/Ml Sdv) 0.4 mg IM ASDIRECTED PRN PRN Reason: Respiratory Depression Nystatin (Nystatin Crm 15 Gm Tube) 0 gm TOP TID PRN PRN Reason: Rash Ondansetron HCl (Ondansetron 4 Mg Tab.Dis) 4 mg PO Q4H PRN PRN Reason: Nausea/Vomiting Pantoprazole Sodium (Pantoprazole 40 Mg Tab.Cr) 40 mg PO BID@0730,2100 [facility] Last Admin: 02/24/21 06:29 Dose: 40 mg Documented by: Polyethylene Glycol (Polyethylene Glycol 3350 Powder 17 Gm Packet) 17 gm PO DAILY PRN PRN Reason: Constipation Potassium Chloride (Potassium Chloride 20 Meq Tab.Er) 20 meq PO MOWEFR [facility] Last Admin: 02/22/21 08:05 Dose: 20 meq Documented by: Discontinued Medications Acetaminophen (Acetaminophen 325 Mg Tab) 650 mg PO Q6H PRN PRN Reason: MILD PAIN (-310) Dexamethasone (Dexamethasone 1 Mg Tab) 1 mg PO BIDMEALS [facility] Last Admin: 02/18/21 08:08 Dose: 1 mg Documented by: Dexamethasone (Dexamethasone 1 Mg Tab) 1 mg PO ONETIME ONE Stop: 02/18/21 09:46 Last Admin: 02/18/21 11:07 Dose: 1 mg Documented by: Furosemide (Furosemide 40 Mg Tab) 40 mg PO ONETIME ONE Stop: 02/16/21 08:01 Last Admin: 02/16/21 08:31 Dose: 40 mg Documented by: Nystatin (Nystatin Susp 100,000 Unit/Ml 5 Ml Ud Cup) 5 ml PO TID [facility] Stop: 02/22/21 21:01 Last Admin: 02/22/21 21:22 Dose: 5 ml Documented by: Nystatin (Nystatin Crm 30 Gm Tube) 0 gm TOP TID PRN PRN Reason: Rash Pantoprazole Sodium (Pantoprazole 40 Mg Tab.Cr) 40 mg PO DAILY@0600 [facility] Last Admin: 02/17/21 05:40 Dose: 40 mg Documented by: Sertraline HCl (Sertraline 50 Mg Tab) 50 mg PO DAILY [facility] Last Admin: 02/17/21 08:21 Dose: Not Given Documented by: Sertraline HCl (Sertraline 50 Mg Tab) 50 mg PO BEDTIME [facility] Sertraline HCl (Sertraline 50 Mg Tab) 50 mg PO Q48H [facility] Stop: 02/21/21 20:01 Last Admin: 02/17/21 20:28 Dose: 50 mg Documented by: Sertraline HCl (Sertraline 25 Mg Tab) 25 mg PO ONETIME ONE Stop: 02/19/21 18:01 Last Admin: 02/19/21 18:31 Dose: 25 mg Documented by: - Exam Quality Assessment: DVT Prophylaxis. No: Supplemental Oxygen General: Alert, Oriented (person, place, time, confused with specific questions), Cooperative, No Acute Distress Lungs: Clear to Auscultation, Normal Respiratory Effort, Decreased Breath Sounds (RLL). No: Crackles, Wheezing Cardiovascular: Regular Rate, Regular Rhythm GI/Abdominal Exam: Normal Bowel Sounds, Soft, Non-Tender, No Distention Extremities: Pedal Edema (AMINA wraps in place) Peripheral Pulses: 2+: Radial (L), Radial (R) Psy/Mental Status: Anxious - Patient Data Lab Results Last 24 hrs: Laboratory Results - last 24 hr 02/23/21 02/23/21 02/23/21 Range/Units 17:37 17:45 20:04 POC Glucose 195 H 197 H (80-116) mg/dL Urine Color [place] (YELLOW) Urine Appearance Slightly cloudy (CLEAR) Urine pH 5.0 (5.0-6.5) Ur Specific [place] 1.020 (1.010-1.025) Urine Protein 30 H (NEGATIVE) mg/dL Urine Glucose (UA) Normal (NORMAL) mg/dL Urine Ketones 15 H (NEGATIVE) mg/dL Urine Occult Blood Large H (NEGATIVE) Urine Nitrite Negative (NEGATIVE) Urine Bilirubin Small H (NEGATIVE) Urine Urobilinogen Normal (NEGATIVE) mg/dL Ur Leukocyte Esterase Large H (NEGATIVE) Urine RBC 40-50 H (0-5) Urine WBC 30-40 H (0-5) Ur Squamous Epith Cells Moderate H (NS,R,O) Urine Bacteria Many H (NS) 02/24/21 02/24/21 Range/Units 06:40 11:36 POC Glucose 160 H 188 H (80-116) mg/dL Urine Color (YELLOW) Urine Appearance (CLEAR) Urine pH (5.0-6.5) Ur Specific [place] (1.010-1.025) Urine Protein (NEGATIVE) mg/dL Urine Glucose (UA) (NORMAL) mg/dL Urine Ketones (NEGATIVE) mg/dL Urine Occult Blood (NEGATIVE) Urine Nitrite (NEGATIVE) Urine Bilirubin (NEGATIVE) Urine Urobilinogen (NEGATIVE) mg/dL Ur Leukocyte Esterase (NEGATIVE) Urine RBC (0-5) Urine WBC (0-5) Ur Squamous Epith Cells (NS,R,O) Urine Bacteria (NS) Result Diagrams: 02/23/21 06:35 Sepsis Event Note - Evaluation Sepsis Screening Result: No Definite Risk - Focused Exam Vital Signs: Vital Signs Temp Pulse Pulse Resp BP BP Pulse Ox 02/24/21 08:43 95 142/77 H 02/24/21 07:50 98.0 F 95 22 H 142/77 H 93 L - Problem List & Annotations (1) Confusion SNOMED Code(s): 142366269 Code(s): R41.0 - DISORIENTATION, UNSPECIFIED Status: Acute Current Visit: Yes (2) Cancer, metastatic to bone Status: Acute Current Visit: Yes Onset Date: ~11/2020 (3) Weakness SNOMED Code(s): 84665614 Code(s): R53.1 - WEAKNESS Status: Acute Current Visit: No (4) Diabetes type 2, controlled SNOMED Code(s): 96139281, 654348592 Code(s): E11.9 - TYPE 2 DIABETES MELLITUS WITHOUT COMPLICATIONS Status: Chronic Current Visit: No (5) History of breast cancer SNOMED Code(s): 535448702 Code(s): Z85.3 - PERSONAL HISTORY OF MALIGNANT NEOPLASM OF BREAST Status: Chronic Current Visit: No (6) History of colon cancer SNOMED Code(s): 023455284 Code(s): Z85.038 - PERSONAL HISTORY OF MALIGNANT NEOPLASM OF LARGE INTESTINE Status: Chronic Current Visit: No (7) History of uterine cancer SNOMED Code(s): 291157637 Code(s): Z85.42 - PERSONAL HISTORY OF MALIGNANT NEOPLASM OF OTH PRT UTERUS Status: Chronic Current Visit: No Onset Date: ~2019 (8) Obesity SNOMED Code(s): 851178498, 403797232 Code(s): E66.9 - OBESITY, UNSPECIFIED Status: Chronic Current Visit: No Qualifiers: Body mass index: BMI 45.0-49.9 (9) Pathological fracture of sacral vertebra SNOMED Code(s): 16069687126104900 Code(s): M84.48XA - PATHOLOGICAL FRACTURE, OTHER SITE, INIT ENCNTR FOR FRACTURE Status: Chronic Current Visit: No Annotation/Comment:: MRI Lumbar without contrast: Aggressive appearing lesion involving the S1 & S2 segments with ventral epidural soft tissue component causing sever canal & right subarti cular recess stenosis. Biopsy showed metastatic endometrial cancer, received radiation therapy, complicated by radiation neuropathy & radiation gastritis. (10) Peripheral neuropathy due to chemotherapy SNOMED Code(s): 268993341 Code(s): G62.0 - DRUG-INDUCED POLYNEUROPATHY; T45.1X5A - ADVERSE EFFECT OF ANTINEOPLASTIC AND IMMUNOSUP DRUGS, INIT Status: Chronic Current Visit: No (11) Spinal stenosis SNOMED Code(s): 51620562 Code(s): M48.00 - SPINAL STENOSIS, SITE UNSPECIFIED Status: Chronic Current Visit: No (12) Peripheral edema SNOMED Code(s): 419055628 Code(s): R60.9 - EDEMA, UNSPECIFIED Status: Chronic Current Visit: Yes - Problem List Review Problem List Initiated/Reviewed/Updated: Yes - My Orders Last 24 Hours: My Active Orders 02/23/21 12:45 Enoxaparin [Lovenox] 40 mg SUBCUT DAILY 02/23/21 17:45 CULTURE URINE [RM] Routine 02/23/21 18:09 Encourage Fluids [OM.PC] Routine 02/24/21 12:01 CBC WITH AUTO DIFF [HEME] Routine 02/24/21 12:03 Incentive Spirometry [RT Incentive Spirometry] [RC] Q1HWA 02/24/21 12:05 UA W/MICROSCOPIC [URIN] Routine - Plan Plan:: 1. Confusion: will get cath specimen to rule out UTI. Incentive spirometry to help with deep breathing and pulmonary endurance. Family requested recheck of her Hgb so will get CBC today. 2. Weakness: PT/OT for strengthening & ADLs, Care conference Thursday. Her progress has been sporadic, most likely will need jail placement to get stronger. 3. Metastatic endometrial cancer to bone: Fentanyl patch 50 mcg q72h. Hydromorphone 1 mg q12h, discontinue Hydromorphone 2 mg q4h as needed as she has not used since 02/19. Dexamethasone 2 mg bid. Tylenol 500 mg bid. 4. Peripheral edema/lymphedema: AMINA wraps BLE(Farrow wraps never brought in by family), Lasix Mon, Wed, Fri with potassium. BMP was within normal range ye . 5. Exertional tachycardia: most likely secondary to deconditioning. Only occurred during therapy, at rest she was in 90s. Started low dose Metoprolol to help her participate in therapy. 6. Anxiety: more anxious about her upcoming oncology appt though it is 3 weeks away. Will adjust her medications. 6. DM: Accuchecks qidac&hs. Humalog low dose sliding scale, metformin. Uses 1-2 units a day. 7. Discharge planning: Plan to continue therapy, care conference Thursday, if she is not meeting goals she would need [facility] placement for further strengthening.
[2021-02-24] MEDS ORDERED: Sulfamethoxazole/Trimethoprim 800-160 MG Tab PO SCH (21:15)
[2021-02-24] MEDS: Aspirin 81 MG Tab.EC PO SCH (21:15)
[2021-02-25] MEDS: Pantoprazole 40 MG Tab.CR PO SCH ×2 (06:44→20:00)
[2021-02-25] MEDS: Insulin Lispro 100 Unit/ML 3 ML KwikPen SUBCUT SCH ×3 (09:29→17:24)
[2021-02-25] MEDS: metFORMIN 1,000 MG Tab PO SCH ×2 (09:29→17:27)
[2021-02-25] MEDS: Dexamethasone 2 MG Tab PO SCH ×2 (09:29→17:26)
[2021-02-25] MEDS: Furosemide 40 MG Tab PO SCH (09:30)
[2021-02-25] MEDS: Docusate Sodium 100 MG Cap PO SCH ×2 (09:30→19:59)
[2021-02-25] MEDS: Potassium Chloride 20 MEQ Tab.ER PO SCH (09:30)
[2021-02-25] MEDS: DULoxetine 60 MG Cap PO SCH (09:30)
[2021-02-25] MEDS: Ferrous Sulfate 325 MG Tab PO SCH (09:30)
[2021-02-25] MEDS: Megestrol 40 MG Tab PO SCH ×2 (09:31→20:00)
[2021-02-25] MEDS: Enoxaparin 40 MG/0.4 ML Syringe SUBCUT SCH (09:31)
[2021-02-25] MEDS: Metoprolol Succinate 25 MG Tab.ER PO SCH (09:31)
[2021-02-25] MEDS: Magnesium Chloride 64 MG Tab.ER PO SCH (09:31)
[2021-02-25] MEDS: Allopurinol 300 MG Tab PO SCH (09:32)
[2021-02-25] MEDS: Acetaminophen 500 MG Tab PO SCH ×2 (09:32→20:00)
[2021-02-25] MEDS: Cholecalciferol (Vitamin D3) 25 MCG Tab PO SCH (09:32)
[2021-02-25] MEDS: HYDROmorphone 2 MG Tab PO SCH ×2 (10:24→20:04)
[2021-02-25] MEDS: Nystatin Susp 100,000 Unit/ML 5 ML UD Cup PO SCH ×4 (10:26→20:00)
[2021-02-25] MEDS: Aspirin 81 MG Tab.EC PO SCH (19:59)
[2021-02-26] MEDS: Pantoprazole 40 MG Tab.CR PO SCH ×3 (06:17→20:07)
[2021-02-26] MEDS ORDERED: Iopamidol 755 Mg/ML 100 ML Bottle IV ONE (08:26)
[2021-02-26] MEDS: Megestrol 40 MG Tab PO SCH ×2 (09:40→20:06)
[2021-02-26] MEDS: Nystatin Susp 100,000 Unit/ML 5 ML UD Cup PO SCH ×4 (09:41→20:06)
[2021-02-26] MEDS: Cholecalciferol (Vitamin D3) 25 MCG Tab PO SCH (09:41)
[2021-02-26] MEDS: Enoxaparin 40 MG/0.4 ML Syringe SUBCUT SCH (09:41)
[2021-02-26] MEDS: Acetaminophen 500 MG Tab PO SCH ×2 (09:43→20:07)
[2021-02-26] MEDS: Metoprolol Succinate 25 MG Tab.ER PO SCH (09:43)
[2021-02-26] MEDS: Dexamethasone 2 MG Tab PO SCH ×2 (09:45→17:17)
[2021-02-26] MEDS: Allopurinol 300 MG Tab PO SCH (09:45)
[2021-02-26] MEDS: Ferrous Sulfate 325 MG Tab PO SCH (09:46)
[2021-02-26] MEDS: Docusate Sodium 100 MG Cap PO SCH ×2 (09:46→20:06)
[2021-02-26] MEDS: DULoxetine 60 MG Cap PO SCH (09:46)
[2021-02-26] MEDS: Magnesium Chloride 64 MG Tab.ER PO SCH (09:46)
[2021-02-26] MEDS: Insulin Lispro 100 Unit/ML 3 ML KwikPen SUBCUT SCH ×3 (09:49→17:15)
[2021-02-26] MEDS: HYDROmorphone 2 MG Tab PO SCH ×2 (09:53→20:06)
[2021-02-26] MEDS ORDERED: Enoxaparin 60 MG/0.6 ML Syringe SUBCUT ONE (10:30)
[2021-02-26] MEDS ORDERED: Rivaroxaban 15 MG Tab PO SCH (10:30)
[2021-02-26] MEDS: Rivaroxaban 15 MG Tab PO SCH ×2 (11:49→20:06)
--- NOTE | 2021-02-26 12:42 | PCM.PN ---
- General Info Date of Service: 02/26/21 Subjective Update: Tali has been progressively declining, shortness of breath and right lower chest pain has been present since she was in [place]. She had EKG, ECHO and CTA negative for PE during her [facility] stay. She has remained afebrile, O2 saturations in the upper 90s. Dry cough which has been present prior to admission. Her Hgb on Thursday was 9.4, 9.7 today. UA 1st one was contaminated, many epithelials cells; repeat cathed sample was negative for infection. Her reflexed urine culture from 1st sample grew a staph and E. coli but the second sample which was negative was collected prior to results of culture so no treatment needed. She did not report chest pain on Thursday but reports today and again states its been there since [place]. She has been having confusion on and off since admission. MME 22 on admission. Repeated CTA this morning since she has been dizzy, tachycardic and worsening shortness of breath on exertion with PT. CTA showed RLL pulmonary embolism, also bilateral upper lobe ground glass opacities, Dr Cheng felt were infectious in nature. WBC 10.2. - Patient Data Vitals - Most Recent: Last Vital Signs Temp 99.2 F 02/26/21 08:00 Pulse 111 H 02/26/21 09:43 Resp 15 02/26/21 08:00 BP 131/73 02/26/21 09:43 Pulse Ox 95 02/26/21 08:00 Orthostatic Blood Pressure [ 134/86 Standing] Orthostatic Blood Pressure [ 140/92 Sitting] Weight - Most Recent: 246 lb 9.6 oz Lab Results Last 24 Hours: Laboratory Results - last 24 hr 02/25/21 02/25/21 02/26/21 Range/Units 17:22 20:09 06:17 WBC (3.0-10.3) x10-3/uL RBC (3.60-5.20) x10(6)uL Hgb (11.4-15.5) g/dL Hct (34.2-48.2) % MCV (76.7-100.5) fL MCH (23.9-33.9) pg MCHC (31.9-34.8) g/dL RDW (12.3-16.5) % Plt Count (151-488) x10(3)uL MPV (7.1-12.4) fL Add Manual Diff Neutrophils % (Manual) (46-82) % Band Neutrophils % (0-6) % Lymphocytes % (Manual) (13-37) % Monocytes % (Manual) (4-12) % Macrocytosis POC Glucose 158 H 181 H 134 H (80-116) mg/dL 02/26/21 02/26/21 Range/Units 11:14 11:38 WBC 10.2 (3.0-10.3) x10-3/uL RBC 2.28 L (3.60-5.20) x10(6)uL Hgb 9.7 L (11.4-15.5) g/dL Hct 26.9 L (34.2-48.2) % MCV 118.0 H (76.7-100.5) fL MCH 42.5 H (23.9-33.9) pg MCHC 36.1 H (31.9-34.8) g/dL RDW 22.7 H (12.3-16.5) % Plt Count 151 (151-488) x10(3)uL MPV 9.8 (7.1-12.4) fL Add Manual Diff Yes Neutrophils % (Manual) 91 H (46-82) % Band Neutrophils % 2 (0-6) % Lymphocytes % (Manual) 4 L (13-37) % Monocytes % (Manual) 3 L (4-12) % Macrocytosis Few POC Glucose 149 H (80-116) mg/dL Ar Results Last 24 Hours: Microbiology 02/23/21 17:45 Urine Culture - Final Urine, Voided Escherichia Coli Staphylococcus Simulans Med Orders - Current: Current Medications Acetaminophen (Acetaminophen 500 Mg Tab) 500 mg PO BID [facility] Last Admin: 02/26/21 09:43 Dose: 500 mg Documented by: Allopurinol (Allopurinol 300 Mg Tab) 300 mg PO DAILY [facility] Last Admin: 02/26/21 09:45 Dose: 300 mg Documented by: Artificial Tears (Polyvinyl Alcohol 1.4% Ophth Soln 15 Ml Bottle) 0 ml EYEBOTH Q4H PRN PRN Reason: Dry Eyes Aspirin (Aspirin 81 Mg Tab.Ec) 81 mg PO BEDTIME [facility] Last Admin: 02/25/21 19:59 Dose: 81 mg Documented by: Cholecalciferol (Cholecalciferol (Vitamin D3) 25 Mcg Tab) 50 mcg PO DAILY [facility] Last Admin: 02/26/21 09:41 Dose: 50 mcg Documented by: Al Hydroxide/Mg Hydroxide 10 ml/ Lidocaine HCl 10 ml/Diphenhydramine HCl 25 mg 0 ml PO Q6H PRN PRN Reason: ORAL DISCOMFORT Dexamethasone (Dexamethasone 2 Mg Tab) 2 mg PO BIDMEALS [facility] Last Admin: 02/26/21 09:45 Dose: 2 mg Documented by: Dextrose/Water (50% Dextrose In Water 50 Ml Syringe) 50 ml IVPUSH ASDIRECTED PRN PRN Reason: Hypoglycemia Docusate Sodium (Docusate Sodium 100 Mg Cap) 100 mg PO BID [facility] Last Admin: 02/26/21 09:46 Dose: 100 mg Documented by: Duloxetine HCl (Duloxetine 60 Mg Cap) 60 mg PO DAILY [facility] Last Admin: 02/26/21 09:46 Dose: 60 mg Documented by: Fentanyl (Fentanyl 50 Mcg/Hr Transdermal Patch) 50 mcg TRDERM Q72H [facility] Last Admin: 02/24/21 08:50 Dose: 50 mcg Documented by: Ferrous Sulfate (Ferrous Sulfate 325 Mg Tab) 325 mg PO DAILY [facility] Last Admin: 02/26/21 09:46 Dose: 325 mg Documented by: Furosemide (Furosemide 40 Mg Tab) 40 mg PO MOWEFR [facility] Last Admin: 02/25/21 09:30 Dose: 40 mg Documented by: Glucagon (Glucagon,Human Recombinant 1 Mg Vial) 1 mg IM ASDIRECTED PRN PRN Reason: Hypoglycemia Hydromorphone HCl (Hydromorphone 2 Mg Tab) 2 mg PO Q4H PRN PRN Reason: PAIN 6-10/10 Last Admin: 02/19/21 09:30 Dose: 2 mg Documented by: Hydromorphone HCl (Hydromorphone 2 Mg Tab) 1 mg PO Q12H [facility] Last Admin: 02/26/21 09:53 Dose: 1 mg Documented by: Insulin Human Lispro (Insulin Lispro 100 Unit/Ml 3 Ml Kwikpen) 0 unit SUBCUT TIDMEALS [facility]; Protocol Last Admin: 02/26/21 11:46 Dose: Not Given Documented by: Magnesium Chloride (Magnesium Chloride 64 Mg Tab.Er) 64 mg PO DAILY [facility] Last Admin: 02/26/21 09:46 Dose: 64 mg Documented by: Megestrol Acetate (Megestrol 40 Mg Tab) 80 mg PO BID [facility] Last Admin: 02/26/21 09:40 Dose: 80 mg Documented by: Metformin HCl (Metformin 1,000 Mg Tab) 1,000 mg PO BIDMEALS [facility] Last Admin: 02/25/21 17:27 Dose: 1,000 mg Documented by: Metoprolol Succinate (Metoprolol Succinate 25 Mg Tab.Er) 12.5 mg PO DAILY [facility] Last Admin: 02/26/21 09:43 Dose: 12.5 mg Documented by: Naloxone HCl (Naloxone 0.4 Mg/Ml Sdv) 0.4 mg IM ASDIRECTED PRN PRN Reason: Respiratory Depression Nystatin (Nystatin Crm 15 Gm Tube) 0 gm TOP TID PRN PRN Reason: Rash Nystatin (Nystatin Susp 100,000 Unit/Ml 5 Ml Ud Cup) 5 ml PO QID [facility] Last Admin: 02/26/21 09:41 Dose: 5 ml Documented by: Ondansetron HCl (Ondansetron 4 Mg Tab.Dis) 4 mg PO Q4H PRN PRN Reason: Nausea/Vomiting Pantoprazole Sodium (Pantoprazole 40 Mg Tab.Cr) 40 mg PO BID@0730,2100 [facility] Last Admin: 02/26/21 09:42 Dose: 40 mg Documented by: Polyethylene Glycol (Polyethylene Glycol 3350 Powder 17 Gm Packet) 17 gm PO DAILY PRN PRN Reason: Constipation Potassium Chloride (Potassium Chloride 20 Meq Tab.Er) [facility] Last Admin: 02/25/21 09:30 Dose: 20 meq Documented by: Rivaroxaban (Rivaroxaban 20 Mg Tab) [facility] Rivaroxaban (Rivaroxaban 15 Mg Tab) 15 mg PO BIDMEALS [facility] Stop: 03/18/21 18:01 Last Admin: 02/26/21 11:49 Dose: 15 mg Documented by: Discontinued Medications Acetaminophen (Acetaminophen 325 Mg Tab) 650 mg PO Q6H PRN PRN Reason: MILD PAIN (1-3/10) Dexamethasone (Dexamethasone 1 Mg Tab) 1 mg PO BIDMEALS [facility] Last Admin: 02/18/21 08:08 Dose: 1 mg Documented by: Dexamethasone (Dexamethasone 1 Mg Tab) 1 mg PO ONETIME ONE Stop: 02/18/21 09:46 Last Admin: 02/18/21 11:07 Dose: 1 mg Documented by: Enoxaparin Sodium (Enoxaparin 40 Mg/0.4 Ml Syringe) 40 mg SUBCUT DAILY [facility] Last Admin: 02/26/21 09:41 Dose: 40 mg Documented by: Enoxaparin Sodium (Enoxaparin 40 Mg/0.4 Ml Syringe) 100 mg SUBCUT Q12H [facility] Furosemide (Furosemide 40 Mg Tab) 40 mg PO ONETIME ONE Stop: 02/16/21 08:01 Last Admin: 02/16/21 08:31 Dose: 40 mg Documented by: Iopamidol (Iopamidol 755 Mg/Ml 100 Ml Bottle) 100 ml IV . DIRECTED ONE Stop: 02/26/21 08:27 Last Admin: 02/26/21 09:15 Dose: 90 ml Documented by: Nystatin (Nystatin Susp 100,000 Unit/Ml 5 Ml Ud Cup) 5 ml PO TID [facility] Stop: 02/22/21 21:01 Last Admin: 02/22/21 21:22 Dose: 5 ml Documented by: Nystatin (Nystatin Crm 30 Gm Tube) 0 gm TOP TID PRN PRN Reason: Rash Pantoprazole Sodium (Pantoprazole 40 Mg Tab.Cr) 40 mg PO DAILY@0600 [facility] Last Admin: 02/17/21 05:40 Dose: 40 mg Documented by: Sertraline HCl (Sertraline 50 Mg Tab) 50 mg PO DAILY [facility] Last Admin: 02/17/21 08:21 Dose: Not Given Documented by: Sertraline HCl (Sertraline 50 Mg Tab) 50 mg PO BEDTIME [facility] Sertraline HCl (Sertraline 50 Mg Tab) 50 mg PO Q48H [facility] Stop: 02/21/21 20:01 Last Admin: 02/17/21 20:28 Dose: 50 mg Documented by: Sertraline HCl (Sertraline 25 Mg Tab) 25 mg PO ONETIME ONE Stop: 02/19/21 18:01 Last Admin: 02/19/21 18:31 Dose: 25 mg Documented by: Trimethoprim/Sulfamethoxazole (Sulfamethoxazole/Trimethoprim 800-160 Mg Tab) 1 tab PO BID [facility] Last Admin: 02/24/21 21:20 Dose: 1 tab Documented by: - Exam Quality Assessment: DVT Prophylaxis. No: Supplemental Oxygen General: Alert, Oriented (person, place, thought was Thursday today), Cooperative, No Acute Distress Lungs: Clear to Auscultation, Normal Respiratory Effort, Decreased Breath Sounds (bibasilar), Other (NT to right chest wall. Pt pinpoints pain to right lower chest wall.). No: Crackles, Wheezing Cardiovascular: Regular Rate, Regular Rhythm GI/Abdominal Exam: Normal Bowel Sounds, Soft, Non-Tender, No Distention Extremities: Pedal Edema (2+ BLE) Peripheral Pulses: 2+: Radial (L), Radial (R) Neurological: Normal Speech - Patient Data Lab Results Last 24 hrs: Laboratory Results - last 24 hr 02/25/21 02/25/21 02/26/21 Range/Units 17:22 20:09 06:17 WBC (3.0-10.3) x10-3/uL RBC (3.60-5.20) x10(6)uL Hgb (11.4-15.5) g/dL Hct (34.2-48.2) % MCV (76.7-100.5) fL MCH (23.9-33.9) pg MCHC (31.9-34.8) g/dL RDW (12.3-16.5) % Plt Count (151-488) x10(3)uL MPV (7.1-12.4) fL Add Manual Diff Neutrophils % (Manual) (46-82) % Band Neutrophils % (0-6) % Lymphocytes % (Manual) (13-37) % Monocytes % (Manual) (4-12) % Macrocytosis POC Glucose 158 H 181 H 134 H (80-116) mg/dL 02/26/21 02/26/21 Range/Units 11:14 11:38 WBC 10.2 (3.0-10.3) x10-3/uL RBC 2.28 L (3.60-5.20) x10(6)uL Hgb 9.7 L (11.4-15.5) g/dL Hct 26.9 L (34.2-48.2) % MCV 118.0 H (76.7-100.5) fL MCH 42.5 H (23.9-33.9) pg MCHC 36.1 H (31.9-34.8) g/dL RDW 22.7 H (12.3-16.5) % Plt Count 151 (151-488) x10(3)uL MPV 9.8 (7.1-12.4) fL Add Manual Diff Yes Neutrophils % (Manual) 91 H (46-82) % Band Neutrophils % 2 (0-6) % Lymphocytes % (Manual) 4 L (13-37) % Monocytes % (Manual) 3 L (4-12) % Macrocytosis Few POC Glucose 149 H (80-116) mg/dL Result Diagrams: 02/26/21 11:14 02/23/21 06:35 Ar Results Last 24 hrs: Microbiology 02/23/21 17:45 Urine Culture - Final Urine, Voided Escherichia Coli Staphylococcus Simulans Sepsis Event Note - Evaluation Sepsis Screening Result: No Definite Risk - Focused Exam Vital Signs: Vital Signs Temp Pulse Pulse Resp BP BP Pulse Ox 02/26/21 09:43 111 H 131/73 02/26/21 08:00 99.2 F 111 H 15 131/73 95 - Problem List & Annotations (1) Pulmonary embolism on right SNOMED Code(s): 39557829 Code(s): I26.99 - OTHER PULMONARY EMBOLISM WITHOUT ACUTE COR PULMONALE Status: Acute Current Visit: Yes Annotation/Comment:: RLL, without RV heart failure/strain; some motion artifact. (2) Infiltrate of upper lobe of lung present on imaging study SNOMED Code(s): 025145002 Code(s): R91.8 - OTHER NONSPECIFIC ABNORMAL FINDING OF LUNG FIELD Status: Acute Current Visit: Yes Annotation/Comment:: Bilateral; ground glass opacities, Dr Cheng felt more infectious in nature. I had reported she had recent radiation therapy. Did not feel was fibrous. WBC was 10.2. Unable to get procalcitonin, checking with [facility] on availablity of respiratory viral panel. Will change her vitals to every shift, repeat CBC and monitor for any signs of bacterial PNA. (3) Cancer, metastatic to bone Status: Acute Current Visit: Yes Onset Date: ~11/2020 (4) Weakness SNOMED Code(s): 14947938 Code(s): R53.1 - WEAKNESS Status: Acute Current Visit: No (5) Confusion SNOMED Code(s): 101241379 Code(s): R41.0 - DISORIENTATION, UNSPECIFIED Status: Chronic Current Visit: Yes Annotation/Comment:: MME 22 on admission (6) Diabetes type 2, controlled SNOMED Code(s): 31045056, 719871815 Code(s): E11.9 - TYPE 2 DIABETES MELLITUS WITHOUT COMPLICATIONS Status: Chronic Current Visit: No (7) History of breast cancer SNOMED Code(s): 384070802 Code(s): Z85.3 - PERSONAL HISTORY OF MALIGNANT NEOPLASM OF BREAST Status: Chronic Current Visit: No (8) History of colon cancer SNOMED Code(s): 379440210 Code(s): Z85.038 - PERSONAL HISTORY OF MALIGNANT NEOPLASM OF LARGE INTESTINE Status: Chronic Current Visit: No (9) History of uterine cancer SNOMED Code(s): 894736305 Code(s): Z85.42 - PERSONAL HISTORY OF MALIGNANT NEOPLASM OF OTH PRT UTERUS Status: Chronic Current Visit: No Onset Date: ~2019 (10) Obesity SNOMED Code(s): 881752598, 878727175 Code(s): E66.9 - OBESITY, UNSPECIFIED Status: Chronic Current Visit: No Qualifiers: Body mass index: BMI 45.0-49.9 (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 Biopsy showed metastatic endometrial cancer, received radiation therapy, complicated by radiation neuropathy & radiation gastritis. 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 SNOMED Code(s): 984044245 Code(s): G62.0 - DRUG-INDUCED POLYNEUROPATHY; T45.1X5A - ADVERSE EFFECT OF ANTINEOPLASTIC AND IMMUNOSUP DRUGS, INIT Status: Chronic Current Visit: No (13) Spinal stenosis SNOMED Code(s): 31335068 Code(s): M48.00 - SPINAL STENOSIS, SITE UNSPECIFIED Status: Chronic Current Visit: No (14) Peripheral edema SNOMED Code(s): 129341503 Code(s): R60.9 - EDEMA, UNSPECIFIED Status: Chronic Current Visit: Yes - Problem List Review Problem List Initiated/Reviewed/Updated: Yes - My Orders Last 24 Hours: My Active Orders 02/26/21 07:36 Ang Chest [CT] Routine 02/26/21 10:45 Rivaroxaban [Xarelto] 15 mg PO BIDMEALS 03/19/21 18:00 Rivaroxaban [Xarelto] 20 mg PO WITHDINNER - Plan Plan:: 1. Pulmonary embolism: Symptoms unchanged since was in [place], CTA few weeks ago was negative. Today, positive for RLL. Xarelto 15 mg bid x 21 days then 20 mg daily for 3 months. Hemodynamically stable, continue therapy as she tolerates. Lovenox discontinued. 2. Bilateral upper lobe infiltrates per CT. Clinically just having dry cough which has been present prior to admission. Had COVID in Jul, fully vaccinated. WBC 10.2, afebrile, oxygen 95% RA. Blood pressures well controlled. Change vitals to every shift. Repeat CBC tomorrow. Lab is checking on [facility] respiratory viral panel from [facility] as likely viral pneumonia at this time. 3. Weakness: PT/OT for strengthening & ADLs, Care conference Thursday, looking at continuing PT/OT at [place], dependent on if she is going to do chemotherapy or not. No chemo is planned at this time but not meeting with Dr Gilbert until March 18. 4. Metastatic endometrial cancer to bone: Fentanyl patch 50 mcg q72h. Hydromorphone 1 mg q12h, Dexamethasone 2 mg bid. Tylenol 500 mg bid. 5. Peripheral edema/lymphedema: AMINA wraps BLE(Farrow wraps never brought in by family), Lasix Mon, Wed, Fri with potassium. BMP was within normal range yesterday. 6. DM: Accuchecks qidac&hs. Humalog low dose sliding scale, metformin. Uses 1-2 units a day. 7. Discharge planning: Plan to continue therapy, care conference Thursday, will need continued PT/OT in [place] as most likely will have slower progress with having PE.
[2021-02-26] MEDS: Aspirin 81 MG Tab.EC PO SCH (20:06)
[2021-02-26] MEDS ORDERED: Enoxaparin 40 MG/0.4 ML Syringe SUBCUT SCH (21:00)
[2021-02-27] MEDS: Dexamethasone 2 MG Tab PO SCH ×2 (07:50→17:06)
[2021-02-27] MEDS: Potassium Chloride 20 MEQ Tab.ER PO SCH (07:51)
[2021-02-27] MEDS: Insulin Lispro 100 Unit/ML 3 ML KwikPen SUBCUT SCH ×3 (07:58→17:06)
[2021-02-27] MEDS: Pantoprazole 40 MG Tab.CR PO SCH ×2 (08:00→20:24)
[2021-02-27] MEDS: Docusate Sodium 100 MG Cap PO SCH ×2 (08:04→20:23)
[2021-02-27] MEDS: HYDROmorphone 2 MG Tab PO SCH (08:07)
[2021-02-27] MEDS: fentaNYL 50 MCG/HR Transdermal Patch TRDERM SCH (08:17)
[2021-02-27] MEDS: Furosemide 40 MG Tab PO SCH (08:18)
[2021-02-27] MEDS: DULoxetine 60 MG Cap PO SCH (08:18)
[2021-02-27] MEDS: Ferrous Sulfate 325 MG Tab PO SCH (08:18)
[2021-02-27] MEDS: Magnesium Chloride 64 MG Tab.ER PO SCH (08:19)
[2021-02-27] MEDS: Megestrol 40 MG Tab PO SCH ×2 (08:19→20:24)
[2021-02-27] MEDS: Nystatin Susp 100,000 Unit/ML 5 ML UD Cup PO SCH ×4 (08:20→20:24)
[2021-02-27] MEDS: Metoprolol Succinate 25 MG Tab.ER PO SCH (08:20)
[2021-02-27] MEDS: Acetaminophen 500 MG Tab PO SCH ×2 (08:21→20:24)
[2021-02-27] MEDS: Cholecalciferol (Vitamin D3) 25 MCG Tab PO SCH (08:21)
[2021-02-27] MEDS: Allopurinol 300 MG Tab PO SCH (08:22)
[2021-02-27] MEDS: Rivaroxaban 15 MG Tab PO SCH ×2 (08:22→17:07)
[2021-02-27] MEDS: Aspirin 81 MG Tab.EC PO SCH (20:23)
[2021-02-27] MEDS: HYDROmorphone 2 MG Tab PO PRN (23:22)
[2021-02-28] MEDS: Pantoprazole 40 MG Tab.CR PO SCH ×2 (06:33→20:19)
[2021-02-28] MEDS: Insulin Lispro 100 Unit/ML 3 ML KwikPen SUBCUT SCH ×3 (08:27→17:18)
[2021-02-28] MEDS: Megestrol 40 MG Tab PO SCH ×2 (09:10→20:19)
[2021-02-28] MEDS: Allopurinol 300 MG Tab PO SCH (09:11)
[2021-02-28] MEDS: DULoxetine 60 MG Cap PO SCH (09:12)
[2021-02-28] MEDS: Magnesium Chloride 64 MG Tab.ER PO SCH (09:12)
[2021-02-28] MEDS: Docusate Sodium 100 MG Cap PO SCH ×2 (09:12→20:19)
[2021-02-28] MEDS: Rivaroxaban 15 MG Tab PO SCH ×2 (09:13→17:24)
[2021-02-28] MEDS: Ferrous Sulfate 325 MG Tab PO SCH (09:13)
[2021-02-28] MEDS: Nystatin Susp 100,000 Unit/ML 5 ML UD Cup PO SCH ×4 (09:14→20:16)
[2021-02-28] MEDS: Cholecalciferol (Vitamin D3) 25 MCG Tab PO SCH (09:14)
[2021-02-28] MEDS: Dexamethasone 2 MG Tab PO SCH ×2 (09:15→17:23)
[2021-02-28] MEDS: Potassium Chloride 20 MEQ Tab.ER PO SCH (09:18)
[2021-02-28] MEDS: Furosemide 40 MG Tab PO SCH (09:19)
[2021-02-28] MEDS: Acetaminophen 500 MG Tab PO SCH ×2 (09:21→21:20)
[2021-02-28] MEDS: metFORMIN 1,000 MG Tab PO SCH ×2 (09:22→17:23)
[2021-02-28] MEDS: Metoprolol Succinate 25 MG Tab.ER PO SCH (09:24)
--- NOTE | 2021-02-28 15:40 | PCM.SN.2 ---
- Free Text/Narrative Note: DOS: 02/27/21 Patient discussion: Respiratory viral panel that was ordered came back negative for all virus & bacteria(see scanned report for more details). WBC 7.9. Afebrile. No clinical signs of pneumonia. Will continue to monitor, continue Incentive spirometry q1hWA. Reviewed results with Tali & her daughter. Advised Tali that she can use the yellow hand weight that was provided by therapy to do arm exercises and do leg exercises while she is in bed or her chair to keep up her muscle strength. Stressed that if she just lays in bed or sits in her chair she will continue to lose muscle strength as well as muscle bulk from lack of use. So far [facility] has declined admission due to possibility of I mmunotherapy for her Endometrial cancer with mets to the bone though this is not chemotherapy. [facility] also declined patient. Continue present cares, therapy as patient tolerates. Decreased her Dilaudid from 1 mg bid scheduled to 1 mg q8h as needed to help with brain fog from the narcotics. May need to continue to adjust. Spent 15 minutes with patient and her daughter, reviewing test results, answering questions and discussion of discharge plans.
[2021-02-28] MEDS: HYDROmorphone 2 MG Tab PO PRN (20:17)
[2021-02-28] MEDS: Aspirin 81 MG Tab.EC PO SCH (20:19)
[2021-03-01] MEDS: Pantoprazole 40 MG Tab.CR PO SCH ×2 (06:36→20:05)
[2021-03-01] MEDS: Nystatin Susp 100,000 Unit/ML 5 ML UD Cup PO SCH ×4 (08:24→20:04)
[2021-03-01] MEDS: Cholecalciferol (Vitamin D3) 25 MCG Tab PO SCH (08:25)
[2021-03-01] MEDS: Metoprolol Succinate 25 MG Tab.ER PO SCH (08:25)
[2021-03-01] MEDS: Rivaroxaban 15 MG Tab PO SCH ×2 (08:25→17:45)
[2021-03-01] MEDS: Dexamethasone 2 MG Tab PO SCH ×2 (08:25→17:45)
[2021-03-01] MEDS: Acetaminophen 500 MG Tab PO SCH ×2 (08:25→20:05)
[2021-03-01] MEDS: Allopurinol 300 MG Tab PO SCH (08:26)
[2021-03-01] MEDS: Megestrol 40 MG Tab PO SCH ×2 (08:26→20:04)
[2021-03-01] MEDS: DULoxetine 60 MG Cap PO SCH (08:27)
[2021-03-01] MEDS: Docusate Sodium 100 MG Cap PO SCH ×2 (08:27→20:04)
[2021-03-01] MEDS: Ferrous Sulfate 325 MG Tab PO SCH (08:27)
[2021-03-01] MEDS: Magnesium Chloride 64 MG Tab.ER PO SCH (08:27)
[2021-03-01] MEDS: Insulin Lispro 100 Unit/ML 3 ML KwikPen SUBCUT SCH ×3 (09:17→17:24)
[2021-03-01] MEDS: Potassium Chloride 20 MEQ Tab.ER PO SCH (09:20)
[2021-03-01] MEDS: metFORMIN 1,000 MG Tab PO SCH ×2 (09:21→17:45)
[2021-03-01] MEDS: Furosemide 40 MG Tab PO SCH (09:40)
--- NOTE | 2021-03-01 10:42 | PN ---
DATE SEEN: 03/01/2021 SUBJECTIVE: Tali Fink is a delightful 81-year-old female, had been living in [facility]. She has had some complicating health issues. Upon report, her health has been in great difficulty dating by last years duration. She was diagnosed with endometrial carcinoma about a year ago, has been dealing with biopsy-proven metastatic endometrial carcinoma, bone involvement. Has lengthy interventions, care treatments in [place], rehab at [facility]. Medications, care and treatment appropriate. Here for rehab purposes. [facility] may be a considered opportunity. MEDICATIONS: We reviewed her medications, all seem to be appropriate. 1. Dexamethasone 4 mg b.i.d. bone pain. 2. Cymbalta 60 mg daily neuropathic pain. 3. 50 mcg Duragesic patch q.72 hours. 4. Lasix Thursday, Thursday, Thursday, limited use due to dehydration. 5. Dilaudid p.o. q.8 hours p.r.n. for pain. 6. Appropriate insulin therapy. 7. Metformin. 8. Metoprolol. 9. Pantoprazole and GI intervention. RECENT LABORATORY STUDIES: 02/28/2021: White count 6.3, hemoglobin 8.6, hematocrit 24.4, macrocytic indices, platelet count 144,000. Glucose 144, 210, 183, and 158. PHYSICAL EXAMINATION: VITAL SIGNS: 36.6, 94, 117/59, O2 saturation 92%, and a rate of 18. GENERAL: Sitting on a wheelchair, eating her breakfast, appears comfortable. NECK: Benign. Thyroid small. CHEST: Clear in all lung arellano. No adventitious sounds. HEART: No ectopy or murmur. ABDOMEN: Benign. ASSESSMENT: Complicated health issues, rehab in place. PLAN: Medications, care, and treatment appropriate. Xarelto therapy for PE management. Pain control with Duragesic patch and oral Dilaudid. /[id number] 1031 [place]/[facility]ILC[facility]
[2021-03-01] MEDS: HYDROmorphone 2 MG Tab PO PRN (15:39)
[2021-03-01] MEDS: Aspirin 81 MG Tab.EC PO SCH (20:04)
[2021-03-02] MEDS: HYDROmorphone 2 MG Tab PO PRN ×2 (01:43→09:43)
[2021-03-02] MEDS: Pantoprazole 40 MG Tab.CR PO SCH ×2 (06:36→20:00)
[2021-03-02] MEDS: Insulin Lispro 100 Unit/ML 3 ML KwikPen SUBCUT SCH ×3 (08:08→18:53)
[2021-03-02] MEDS: Dexamethasone 2 MG Tab PO SCH ×2 (08:12→18:49)
[2021-03-02] MEDS: metFORMIN 1,000 MG Tab PO SCH ×2 (08:12→18:49)
[2021-03-02] MEDS: Rivaroxaban 15 MG Tab PO SCH ×2 (08:13→18:50)
[2021-03-02] MEDS: Magnesium Chloride 64 MG Tab.ER PO SCH (08:13)
[2021-03-02] MEDS: Ferrous Sulfate 325 MG Tab PO SCH (08:13)
[2021-03-02] MEDS: Megestrol 40 MG Tab PO SCH ×2 (08:13→20:00)
[2021-03-02] MEDS: Docusate Sodium 100 MG Cap PO SCH ×2 (08:13→20:00)
[2021-03-02] MEDS: DULoxetine 60 MG Cap PO SCH (08:13)
[2021-03-02] MEDS: Nystatin Susp 100,000 Unit/ML 5 ML UD Cup PO SCH ×4 (08:13→20:00)
[2021-03-02] MEDS: Metoprolol Succinate 25 MG Tab.ER PO SCH (08:14)
[2021-03-02] MEDS: Acetaminophen 500 MG Tab PO SCH ×2 (08:14→20:00)
[2021-03-02] MEDS: Cholecalciferol (Vitamin D3) 25 MCG Tab PO SCH (08:14)
[2021-03-02] MEDS: Allopurinol 300 MG Tab PO SCH (08:15)
[2021-03-02] MEDS: fentaNYL 50 MCG/HR Transdermal Patch TRDERM SCH (08:27)
[2021-03-02] MEDS: Aspirin 81 MG Tab.EC PO SCH (20:00)
[2021-03-03] MEDS: Pantoprazole 40 MG Tab.CR PO SCH ×2 (06:39→20:08)
[2021-03-03] MEDS: Megestrol 40 MG Tab PO SCH ×2 (08:45→20:08)
[2021-03-03] MEDS: metFORMIN 1,000 MG Tab PO SCH ×2 (08:45→17:58)
[2021-03-03] MEDS: Metoprolol Succinate 25 MG Tab.ER PO SCH (08:45)
[2021-03-03] MEDS: Acetaminophen 500 MG Tab PO SCH ×2 (08:46→20:08)
[2021-03-03] MEDS: Rivaroxaban 15 MG Tab PO SCH ×2 (08:46→17:58)
[2021-03-03] MEDS: Dexamethasone 2 MG Tab PO SCH ×2 (08:46→17:59)
[2021-03-03] MEDS: Allopurinol 300 MG Tab PO SCH (08:46)
[2021-03-03] MEDS: DULoxetine 60 MG Cap PO SCH (08:47)
[2021-03-03] MEDS: Docusate Sodium 100 MG Cap PO SCH ×2 (08:47→20:08)
[2021-03-03] MEDS: Insulin Lispro 100 Unit/ML 3 ML KwikPen SUBCUT SCH ×3 (08:47→17:59)
[2021-03-03] MEDS: Ferrous Sulfate 325 MG Tab PO SCH (08:47)
[2021-03-03] MEDS: Magnesium Chloride 64 MG Tab.ER PO SCH (08:47)
[2021-03-03] MEDS: Cholecalciferol (Vitamin D3) 25 MCG Tab PO SCH (08:52)
[2021-03-03] MEDS: Nystatin Susp 100,000 Unit/ML 5 ML UD Cup PO SCH ×4 (08:52→20:07)
--- NOTE | 2021-03-03 12:36 | PN ---
DATE SEEN: 03/03/2021 SUBJECTIVE: Tali Fink is an 81-year-old female in swing bed. She has had intermittent care and hospitalization in rehab over the last several months duration. Discharge planning under consideration. Nursing notes, clinical data, medications reviewed and appropriate. PHYSICAL EXAMINATION: VITAL SIGNS: 126/64, pulse 86, respirations 16, O2 saturation 94%. GENERAL: Recumbent in a recliner. Speech was fluent. Conduct appropriate. NECK: Benign. Thyroid small. CHEST: Clear in all lung arellano. HEART: No ectopy or murmur. ABDOMEN: Benign. ASSESSMENT: Multiple health problems, deconditioning and ability to care for self in question. PLAN: Discharge planning as appropriate. /[id number] 1225 [place]/[facility]IL[facility]
--- NOTE | 2021-03-03 12:40 | PN ---
DATE SEEN: 03/02/2021 SUBJECTIVE: Tali Fink is an 81-year-old female in swing bed. Complicated health issues. Rehab process is low. [facility] transfer under consideration, but extenuating factors. Nursing notes, medications, clinical data reviewed, updated, and signed. Sugars 191, 221. MEDICATIONS: Reported. PHYSICAL EXAMINATION: VITAL SIGNS: 36 degrees, 123/66, pulse 86, O2 saturation 95% on room air. GENERAL: Recumbent in her easy chair. NECK: Benign. Thyroid small. CHEST: Clear in all lung arellano. HEART: No ectopy or murmur. ABDOMEN: Rotund. ASSESSMENT: Complicated health issues. PLAN: Medications, care, and treatment appropriate. PT, OT on board. /[id number] 1226 [place]/DILCIA
[2021-03-03] MEDS: Aspirin 81 MG Tab.EC PO SCH (20:08)
[2021-03-04] MEDS: Pantoprazole 40 MG Tab.CR PO SCH ×2 (06:30→20:33)
[2021-03-04] MEDS: Nystatin Susp 100,000 Unit/ML 5 ML UD Cup PO SCH ×4 (08:05→20:32)
[2021-03-04] MEDS: DULoxetine 60 MG Cap PO SCH (08:05)
[2021-03-04] MEDS: Docusate Sodium 100 MG Cap PO SCH ×2 (08:05→20:31)
[2021-03-04] MEDS: Magnesium Chloride 64 MG Tab.ER PO SCH (08:05)
[2021-03-04] MEDS: Ferrous Sulfate 325 MG Tab PO SCH (08:05)
[2021-03-04] MEDS: Dexamethasone 2 MG Tab PO SCH ×2 (08:06→17:28)
[2021-03-04] MEDS: Allopurinol 300 MG Tab PO SCH (08:06)
[2021-03-04] MEDS: Cholecalciferol (Vitamin D3) 25 MCG Tab PO SCH (08:06)
[2021-03-04] MEDS: Potassium Chloride 20 MEQ Tab.ER PO SCH (08:07)
[2021-03-04] MEDS: Rivaroxaban 15 MG Tab PO SCH ×2 (08:07→17:28)
[2021-03-04] MEDS: Insulin Lispro 100 Unit/ML 3 ML KwikPen SUBCUT SCH ×3 (08:08→17:26)
[2021-03-04] MEDS: Furosemide 40 MG Tab PO SCH (08:09)
[2021-03-04] MEDS: metFORMIN 1,000 MG Tab PO SCH ×2 (08:09→17:27)
[2021-03-04] MEDS: Megestrol 40 MG Tab PO SCH ×2 (08:10→20:32)
[2021-03-04] MEDS: Metoprolol Succinate 25 MG Tab.ER PO SCH (08:10)
[2021-03-04] MEDS: Acetaminophen 500 MG Tab PO SCH ×2 (08:10→20:33)
--- NOTE | 2021-03-04 10:33 | PN ---
DATE SEEN: 03/04/2021 SUBJECTIVE: Tali Fink is a delightful 81-year-old female seen today for review. Long-term interval care, rehab, and intervention. Return to [facility] unlikely. Caregiving significant. She voices no particular complaints or concerns. Pain is controlled. OBJECTIVE: VITAL SIGNS: 36.6, pulse 105, 115/64, respiratory rate 20, and 91%. GENERAL: Cooperative, conversant. Speech is fluent. NECK: Benign. No JVD. CHEST: Decreased breath sounds but clear in all lung arellano. HEART: Distant heart sounds. Occasional ectopy. Soft murmur. ASSESSMENT: Complicated health issues. PLAN: Continue rehab and intervention. Assisted stay likely sometime. /[id number] 1016 [place]/DILCIA
[2021-03-04] MEDS: Aspirin 81 MG Tab.EC PO SCH (20:32)
[2021-03-04] MEDS: HYDROmorphone 2 MG Tab PO PRN (20:33)
[2021-03-05] MEDS: Pantoprazole 40 MG Tab.CR PO SCH ×2 (06:38→21:06)
[2021-03-05] MEDS: Dexamethasone 2 MG Tab PO SCH ×2 (07:58→17:57)
[2021-03-05] MEDS: Insulin Lispro 100 Unit/ML 3 ML KwikPen SUBCUT SCH ×3 (07:59→17:58)
[2021-03-05] MEDS: metFORMIN 1,000 MG Tab PO SCH ×2 (07:59→17:57)
[2021-03-05] MEDS: Rivaroxaban 15 MG Tab PO SCH ×2 (08:00→17:57)
[2021-03-05] MEDS: Docusate Sodium 100 MG Cap PO SCH ×2 (08:08→21:06)
[2021-03-05] MEDS: Metoprolol Succinate 25 MG Tab.ER PO SCH (08:09)
[2021-03-05] MEDS: Ferrous Sulfate 325 MG Tab PO SCH (08:09)
[2021-03-05] MEDS: Magnesium Chloride 64 MG Tab.ER PO SCH (08:09)
[2021-03-05] MEDS: Megestrol 40 MG Tab PO SCH ×2 (08:09→21:06)
[2021-03-05] MEDS: Nystatin Susp 100,000 Unit/ML 5 ML UD Cup PO SCH ×4 (08:09→21:10)
[2021-03-05] MEDS: DULoxetine 60 MG Cap PO SCH (08:09)
[2021-03-05] MEDS: Acetaminophen 500 MG Tab PO SCH ×2 (08:10→21:06)
[2021-03-05] MEDS: Allopurinol 300 MG Tab PO SCH (08:10)
[2021-03-05] MEDS: Cholecalciferol (Vitamin D3) 25 MCG Tab PO SCH (08:10)
[2021-03-05] MEDS: fentaNYL 50 MCG/HR Transdermal Patch TRDERM SCH (08:27)
--- NOTE | 2021-03-05 10:43 | PN ---
DATE SEEN: 03/05/2021 SUBJECTIVE: Tali Fink is an 81-year-old female in today for inpatient review. Host of health issues, hospitalizations, intervention, rehabs. Continues to be needing aggressive care issues and independence is compromised. Hemoglobin during her hospital stay had been 8.6. We will check a hemoglobin today. Therapy in place. Discharge planning: [facility] likely, care of cancer and immunotherapy under consideration. OBJECTIVE: VITAL SIGNS: 36.6, 69, 101/61, 95%, 18 is the respirations. GENERAL: Appears comfortable, sitting in a recliner. NECK: Benign. CHEST: Clear. HEART: Regular. ABDOMEN: Benign. Rehab therapy in place. PLAN: Medications, care, and treatment noted. /[id number] 1037 [place]/[facility]IL[facility]
[2021-03-05] MEDS ORDERED: Sodium Chloride 0.9% 250 ML IV SCH (14:00)
[2021-03-05] MEDS: Aspirin 81 MG Tab.EC PO SCH (21:06)
[2021-03-06] MEDS: Pantoprazole 40 MG Tab.CR PO SCH ×2 (06:32→20:49)
[2021-03-06] MEDS: Potassium Chloride 20 MEQ Tab.ER PO SCH (08:04)
[2021-03-06] MEDS: Dexamethasone 2 MG Tab PO SCH ×2 (08:04→17:53)
[2021-03-06] MEDS: metFORMIN 1,000 MG Tab PO SCH ×2 (08:04→17:53)
[2021-03-06] MEDS: DULoxetine 60 MG Cap PO SCH (08:05)
[2021-03-06] MEDS: Docusate Sodium 100 MG Cap PO SCH ×2 (08:05→20:48)
[2021-03-06] MEDS: Rivaroxaban 15 MG Tab PO SCH ×2 (08:05→18:21)
[2021-03-06] MEDS: Furosemide 40 MG Tab PO SCH (08:06)
[2021-03-06] MEDS: Ferrous Sulfate 325 MG Tab PO SCH (08:06)
[2021-03-06] MEDS: Magnesium Chloride 64 MG Tab.ER PO SCH (08:06)
[2021-03-06] MEDS: Megestrol 40 MG Tab PO SCH ×2 (08:08→20:49)
[2021-03-06] MEDS: Insulin Lispro 100 Unit/ML 3 ML KwikPen SUBCUT SCH ×3 (08:10→17:52)
[2021-03-06] MEDS: Metoprolol Succinate 25 MG Tab.ER PO SCH (08:12)
[2021-03-06] MEDS: Cholecalciferol (Vitamin D3) 25 MCG Tab PO SCH (08:13)
[2021-03-06] MEDS: Acetaminophen 500 MG Tab PO SCH ×2 (08:13→20:48)
[2021-03-06] MEDS: Allopurinol 300 MG Tab PO SCH (08:13)
[2021-03-06] MEDS: Nystatin Susp 100,000 Unit/ML 5 ML UD Cup PO SCH ×4 (09:53→20:49)
--- NOTE | 2021-03-06 10:58 | PN ---
DATE SEEN: 03/06/2021 SUBJECTIVE: Tali Fink is an 81-year-old female in swing bed. Has had a convoluted inpatient/outpatient rehab and present level of care. Improvement is not occurring. Has known bony metastatic endometrial cancer. Had a lengthy discussion with her daughter, Henny, from [place]. We will continue with present care, hospice, intervention, discharge planning with likely limited intervention from terms of oncological intervention or chemotherapy. Presently on Duragesic patch, Dilaudid, and Decadron for management of her bone mets. She otherwise appears to be comfortable. PHYSICAL EXAMINATION: VITAL SIGNS: Stable. Medications, care, and treatment in place. /[id number] 1049 [place]/[facility]IL[facility]
[2021-03-06] MEDS: Aspirin 81 MG Tab.EC PO SCH (20:48)
[2021-03-07] MEDS: Pantoprazole 40 MG Tab.CR PO SCH ×2 (06:34→20:17)
[2021-03-07] MEDS: Dexamethasone 2 MG Tab PO SCH ×2 (08:12→17:31)
[2021-03-07] MEDS: metFORMIN 1,000 MG Tab PO SCH ×2 (08:12→17:31)
[2021-03-07] MEDS: DULoxetine 60 MG Cap PO SCH (08:13)
[2021-03-07] MEDS: Docusate Sodium 100 MG Cap PO SCH ×2 (08:13→20:17)
[2021-03-07] MEDS: Rivaroxaban 15 MG Tab PO SCH ×2 (08:13→17:31)
[2021-03-07] MEDS: Metoprolol Succinate 25 MG Tab.ER PO SCH (08:14)
[2021-03-07] MEDS: Ferrous Sulfate 325 MG Tab PO SCH (08:14)
[2021-03-07] MEDS: Megestrol 40 MG Tab PO SCH ×2 (08:14→20:17)
[2021-03-07] MEDS: Magnesium Chloride 64 MG Tab.ER PO SCH (08:14)
[2021-03-07] MEDS: Cholecalciferol (Vitamin D3) 25 MCG Tab PO SCH (08:15)
[2021-03-07] MEDS: Allopurinol 300 MG Tab PO SCH (08:15)
[2021-03-07] MEDS: Acetaminophen 500 MG Tab PO SCH ×2 (08:15→20:17)
[2021-03-07] MEDS: Insulin Lispro 100 Unit/ML 3 ML KwikPen SUBCUT SCH ×3 (08:15→17:34)
[2021-03-07] MEDS: Nystatin Susp 100,000 Unit/ML 5 ML UD Cup PO SCH ×5 (08:21→20:20)
--- NOTE | 2021-03-07 13:18 | PN ---
DATE SEEN: 03/07/2021 Tali Fink is an 81-year-old female admitted for rehab services. She has complicated medical issues with a bony metastatic endometrial cancer. Pain appears to be well controlled with Duragesic patch, p.r.n. Dilantin, and low-dose Decadron. After lengthy discussion of treatment plans and avoidance of chemotherapy, we will make transfer to [facility] on 03/11/2021, for long-term care. Intervention and care treatment as appropriate. She was transfused with 2 units of blood. Hemoglobin was 7.4, emerson to 9.6 after 2 units on 03/06/2021. Requesting recheck hemoglobin prior to discharge. Vital signs are stable today. She appeared to be comfortable. No complicating issues. Pain is controlled. /[id number] 1230 [place]/[facility]ILCIA
[2021-03-07] MEDS: Aspirin 81 MG Tab.EC PO SCH (20:17)
[2021-03-08] MEDS: Pantoprazole 40 MG Tab.CR PO SCH ×2 (06:42→20:10)
[2021-03-08] MEDS: Dexamethasone 2 MG Tab PO SCH ×2 (08:31→17:36)
[2021-03-08] MEDS: metFORMIN 1,000 MG Tab PO SCH ×2 (08:31→17:35)
[2021-03-08] MEDS: Potassium Chloride 20 MEQ Tab.ER PO SCH (08:32)
[2021-03-08] MEDS: Insulin Lispro 100 Unit/ML 3 ML KwikPen SUBCUT SCH ×3 (08:33→17:35)
[2021-03-08] MEDS: Rivaroxaban 15 MG Tab PO SCH ×2 (08:33→17:36)
[2021-03-08] MEDS: Nystatin Susp 100,000 Unit/ML 5 ML UD Cup PO SCH ×5 (08:39→20:11)
[2021-03-08] MEDS: Docusate Sodium 100 MG Cap PO SCH ×2 (08:40→20:11)
[2021-03-08] MEDS: Cholecalciferol (Vitamin D3) 25 MCG Tab PO SCH (08:40)
[2021-03-08] MEDS: Metoprolol Succinate 25 MG Tab.ER PO SCH (08:40)
[2021-03-08] MEDS: Acetaminophen 500 MG Tab PO SCH ×2 (08:40→20:11)
[2021-03-08] MEDS: DULoxetine 60 MG Cap PO SCH (08:41)
[2021-03-08] MEDS: Furosemide 40 MG Tab PO SCH (08:41)
[2021-03-08] MEDS: Allopurinol 300 MG Tab PO SCH (08:41)
[2021-03-08] MEDS: Megestrol 40 MG Tab PO SCH ×2 (08:41→20:11)
[2021-03-08] MEDS: Ferrous Sulfate 325 MG Tab PO SCH (08:42)
[2021-03-08] MEDS: Magnesium Chloride 64 MG Tab.ER PO SCH (08:42)
[2021-03-08] MEDS: fentaNYL 50 MCG/HR Transdermal Patch TRDERM SCH (08:49)
--- NOTE | 2021-03-08 09:13 | PCM.PN ---
- General Info Date of Service: 03/08/21 Admission Dx/Problem (Free Text): Admission Diagnosis/Problem Admission Diagnosis/Problem Weakness Subjective Update: Patient states that she is having difficulty with weakness and balance. She states her pain is well controlled at this time Functional Status: Reports: Pain Controlled, Tolerating Diet, Ambulating, Urinating - Review of Systems General: Reports: Weakness, Fatigue, Malaise HEENT: Reports: No Symptoms Pulmonary: Reports: No Symptoms Cardiovascular: Reports: No Symptoms Gastrointestinal: Reports: No Symptoms Genitourinary: Reports: No Symptoms Musculoskeletal: Reports: Joint Pain Skin: Reports: No Symptoms Neurological: Reports: Dizziness, Difficulty Walking, Weakness, Gait Disturbance Psychiatric: Reports: Depression, Anxiety - Patient Data Vitals - Most Recent: Last Vital Signs Temp 36.6 C 03/08/21 08:00 Pulse 97 03/08/21 08:40 Resp 18 03/08/21 08:00 BP 108/69 03/08/21 08:40 Pulse Ox 97 03/08/21 08:00 Orthostatic Blood Pressure [ 134/86 Standing] Orthostatic Blood Pressure [ 140/92 Sitting] Weight - Most Recent: 108.59 kg Lab Results Last 24 Hours: Laboratory Results - last 24 hr 03/07/21 03/07/21 03/07/21 Range/Units 11:08 17:24 20:05 POC Glucose 179 H 188 H 184 H (80-116) mg/dL 03/08/21 Range/Units 05:57 POC Glucose 158 H (80-116) mg/dL Med Orders - Current: Current Medications Acetaminophen (Acetaminophen 500 Mg Tab) 500 mg PO BID [facility] Last Admin: 03/08/21 08:40 Dose: 500 mg Documented by: Allopurinol (Allopurinol 300 Mg Tab) 300 mg PO DAILY [facility] Last Admin: 03/08/21 08:41 Dose: 300 mg Documented by: Artificial Tears (Polyvinyl Alcohol 1.4% Ophth Soln 15 Ml Bottle) 0 ml EYEBOTH Q4H PRN PRN Reason: Dry Eyes Aspirin (Aspirin 81 Mg Tab.Ec) 81 mg PO BEDTIME [facility] Last Admin: 03/07/21 20:17 Dose: 81 mg Documented by: Cholecalciferol (Cholecalciferol (Vitamin D3) 25 Mcg Tab) 50 mcg PO DAILY [facility] Last Admin: 03/08/21 08:40 Dose: 50 mcg Documented by: Al Hydroxide/Mg Hydroxide 10 ml/ Lidocaine HCl 10 ml/Diphenhydramine HCl 25 mg 0 ml PO Q6H PRN PRN Reason: ORAL DISCOMFORT Dexamethasone (Dexamethasone 2 Mg Tab) 2 mg PO BIDMEALS [facility] Last Admin: 03/08/21 08:31 Dose: 2 mg Documented by: Dextrose/Water (50% Dextrose In Water 50 Ml Syringe) 50 ml IVPUSH ASDIRECTED PRN PRN Reason: Hypoglycemia Docusate Sodium (Docusate Sodium 100 Mg Cap) 100 mg PO BID [facility] Last Admin: 03/08/21 08:40 Dose: 100 mg Documented by: Duloxetine HCl (Duloxetine 60 Mg Cap) 60 mg PO DAILY [facility] Last Admin: 03/08/21 08:41 Dose: 60 mg Documented by: Fentanyl (Fentanyl 50 Mcg/Hr Transdermal Patch) 50 mcg TRDERM Q72H [facility] Last Admin: 03/08/21 08:49 Dose: 50 mcg Documented by: Ferrous Sulfate (Ferrous Sulfate 325 Mg Tab) 325 mg PO DAILY [facility] Last Admin: 03/08/21 08:42 Dose: 325 mg Documented by: Furosemide (Furosemide 40 Mg Tab) 40 mg PO MOWEFR [facility] Last Admin: 03/08/21 08:41 Dose: 40 mg Documented by: Glucagon (Glucagon,Human Recombinant 1 Mg Vial) 1 mg IM ASDIRECTED PRN PRN Reason: Hypoglycemia Hydromorphone HCl (Hydromorphone 2 Mg Tab) 1 mg PO Q8H PRN PRN Reason: PAIN Last Admin: 03/04/21 20:33 Dose: 1 mg Documented by: Sodium Chloride (Normal Saline) 250 mls @ 100 mls/hr IV ASDIRECTED [facility] Insulin Human Lispro (Insulin Lispro 100 Unit/Ml 3 Ml Kwikpen) 0 unit SUBCUT TIDMEALS [facility]; Protocol Last Admin: 03/08/21 08:33 Dose: 1 units Documented by: Magnesium Chloride (Magnesium Chloride 64 Mg Tab.Er) 64 mg PO DAILY [facility] Last Admin: 03/08/21 08:42 Dose: 64 mg Documented by: Megestrol Acetate (Megestrol 40 Mg Tab) 80 mg PO BID [facility] Last Admin: 03/08/21 08:41 Dose: 80 mg Documented by: Metformin HCl (Metformin 1,000 Mg Tab) 1,000 mg PO BIDMEALS [facility] Last Admin: 03/08/21 08:31 Dose: 1,000 mg Documented by: Metoprolol Succinate (Metoprolol Succinate 25 Mg Tab.Er) 12.5 mg PO DAILY [facility] Last Admin: 03/08/21 08:40 Dose: 12.5 mg Documented by: Naloxone HCl (Naloxone 0.4 Mg/Ml Sdv) 0.4 mg IM ASDIRECTED PRN PRN Reason: Respiratory Depression Nystatin (Nystatin Crm 15 Gm Tube) 0 gm TOP TID PRN PRN Reason: Rash Nystatin (Nystatin Susp 100,000 Unit/Ml 5 Ml Ud Cup) 5 ml PO QID [facility] Last Admin: 03/08/21 09:00 Dose: Not Given Documented by: Ondansetron HCl (Ondansetron 4 Mg Tab.Dis) 4 mg PO Q4H PRN PRN Reason: Nausea/Vomiting Last Admin: 03/05/21 13:27 Dose: 4 mg Documented by: Pantoprazole Sodium (Pantoprazole 40 Mg Tab.Cr) 40 mg PO BID@0730,2100 [facility] Last Admin: 03/08/21 06:42 Dose: 40 mg Documented by: Polyethylene Glycol (Polyethylene Glycol 3350 Powder 17 Gm Packet) 17 gm PO DAILY PRN PRN Reason: Constipation Potassium Chloride (Potassium Chloride 20 Meq Tab.Er) 20 meq PO MOWEFR [facility] Last Admin: 03/08/21 08:32 Dose: 20 meq Documented by: Rivaroxaban (Rivaroxaban 20 Mg Tab) [facility] [place] Rivaroxaban (Rivaroxaban 15 Mg Tab) 15 mg PO BIDMEALS [facility] Stop: 03/18/21 18:01 Last Admin: 03/08/21 08:33 Dose: 15 mg Documented by: Discontinued Medications Acetaminophen (Acetaminophen 325 Mg Tab) 650 mg PO Q6H PRN PRN Reason: MILD PAIN (1-3/10) Dexamethasone (Dexamethasone 1 Mg Tab) 1 mg PO BIDMEALS [facility] Last Admin: 02/18/21 08:08 Dose: 1 mg Documented by: Dexamethasone (Dexamethasone 1 Mg Tab) 1 mg PO ONETIME ONE Stop: 02/18/21 09:46 Last Admin: 02/18/21 11:07 Dose: 1 mg Documented by: Enoxaparin Sodium (Enoxaparin 40 Mg/0.4 Ml Syringe) 40 mg SUBCUT DAILY [facility] Last Admin: 02/26/21 09:41 Dose: 40 mg Documented by: Enoxaparin Sodium (Enoxaparin 40 Mg/0.4 Ml Syringe) 100 mg SUBCUT Q12H [facility] Furosemide (Furosemide 40 Mg Tab) 40 mg PO ONETIME ONE Stop: 02/16/21 08:01 Last Admin: 02/16/21 08:31 Dose: 40 mg Documented by: Hydromorphone HCl (Hydromorphone 2 Mg Tab) 2 mg PO Q4H PRN PRN Reason: PAIN 6-10/10 Last Admin: 02/19/21 09:30 Dose: 2 mg Documented by: Hydromorphone HCl (Hydromorphone 2 Mg Tab) 1 mg PO Q12H [facility] Last Admin: 02/27/21 08:07 Dose: 1 mg Documented by: Insulin Human Lispro (Insulin Lispro 100 Unit/Ml 3 Ml Kwikpen) 300 unit SUBCUT .STK-MED ONE Stop: 02/15/21 17:22 Iopamidol (Iopamidol 755 Mg/Ml 100 Ml Bottle) 100 ml IV . DIRECTED ONE Stop: 02/26/21 08:27 Last Admin: 02/26/21 09:15 Dose: 90 ml Documented by: Nystatin (Nystatin Susp 100,000 Unit/Ml 5 Ml Ud Cup) 5 ml PO TID [facility] Stop: 02/22/21 21:01 Last Admin: 02/22/21 21:22 Dose: 5 ml Documented by: Nystatin (Nystatin Crm 30 Gm Tube) 0 gm TOP TID PRN PRN Reason: Rash Pantoprazole Sodium (Pantoprazole 40 Mg Tab.Cr) 40 mg PO DAILY@0600 [facility] Last Admin: 02/17/21 05:40 Dose: 40 mg Documented by: Sertraline HCl (Sertraline 50 Mg Tab) 50 mg PO DAILY [facility] Last Admin: 02/17/21 08:21 Dose: Not Given Documented by: Sertraline HCl (Sertraline 50 Mg Tab) 50 mg PO BEDTIME [facility] Sertraline HCl (Sertraline 50 Mg Tab) 50 mg PO Q48H [facility] Stop: 02/21/21 20:01 Last Admin: 02/17/21 20:28 Dose: 50 mg Documented by: Sertraline HCl (Sertraline 25 Mg Tab) 25 mg PO ONETIME ONE Stop: 02/19/21 18:01 Last Admin: 02/19/21 18:31 Dose: 25 mg Documented by: Trimethoprim/Sulfamethoxazole (Sulfamethoxazole/Trimethoprim 800-160 Mg Tab) 1 tab PO BID [facility] Last Admin: 02/24/21 21:20 Dose: 1 tab Documented by: Comments:: I was asked to see the patient this morning after she fell trying to go to the bathroom. Patient stated that she lost her balance and fell to her knees. She has some knee pain but is able to flex and extend the knees without any significant increase in pain. She was lying in bed resting at the time that I entered the room, pleasant, alert - Exam General: Alert, Oriented, Cooperative, No Acute Distress HEENT: EOMI Lungs: Clear to Auscultation Cardiovascular: Regular Rate, Regular Rhythm GI/Abdominal Exam: Normal Bowel Sounds Extremities: Pedal Edema, Joint Swelling, Leg Pain Peripheral Pulses: 2+: Radial (L), Radial (R) Skin: Warm, Dry, Intact Neurological: No New Focal Deficit Psy/Mental Status: Alert, Normal Affect, Normal Mood - Patient Data Lab Results Last 24 hrs: Laboratory Results - last 24 hr 03/07/21 03/07/21 03/07/21 Range/Units 11:08 17:24 20:05 POC Glucose 179 H 188 H 184 H (80-116) mg/dL 03/08/21 Range/Units 05:57 POC Glucose 158 H (80-116) mg/dL Result Diagrams: 03/06/21 17:10 02/23/21 06:35 Sepsis Event Note - Evaluation Sepsis Screening Result: No Definite Risk - Focused Exam Vital Signs: Vital Signs Temp Pulse Pulse Resp BP BP Pulse Ox 03/08/21 08:40 97 108/69 03/08/21 08:00 36.6 C 97 18 108/69 97 03/08/21 06:00 36.8 C 96 18 109/64 91 L - Problem List & Annotations (1) Cancer, metastatic to bone Status: Chronic Current Visit: Yes Onset Date: ~11/2020 (2) Peripheral edema SNOMED Code(s): 367999819 Code(s): R60.9 - EDEMA, UNSPECIFIED Status: Chronic Current Visit: Yes (3) Anemia SNOMED Code(s): 729276773 Code(s): D64.9 - ANEMIA, UNSPECIFIED Status: Chronic Current Visit: No Qualifiers: Anemia type: unspecified type Qualified Code(s): D64.9 - Anemia, unspecified (4) Anxiety SNOMED Code(s): 57296665 Code(s): F41.9 - ANXIETY DISORDER, UNSPECIFIED Status: Chronic Current Vi sit: No (5) Constipation due to opioid therapy SNOMED Code(s): 825295651175922 Code(s): K59.03 - DRUG INDUCED CONSTIPATION; T40.2X5A - ADVERSE EFFECT OF OTHER OPIOIDS, INITIAL ENCOUNTER Status: Chronic Current Visit: No (6) Fall SNOMED Code(s): 2821267, 248801291 Code(s): W19.XXXA - UNSPECIFIED FALL, INITIAL ENCOUNTER Status: Acute Current Visit: No Onset Date: ~12/10/20 (7) 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 SNOMED Code(s): 21466612, 162128934 Code(s): C79.82 - SECONDARY MALIGNANT NEOPLASM OF GENITAL ORGANS Status: Chronic Current Visit: No (8) Palliative care encounter SNOMED Code(s): 897254987, 307526149 Code(s): Z51.5 - ENCOUNTER FOR PALLIATIVE CARE Status: Acute Current Visit: No (9) Weakness SNOMED Code(s): 49717458 Code(s): R53.1 - WEAKNESS Status: Acute Current Visit: No (10) Diabetes type 2, controlled SNOMED Code(s): 21716102, 087065772 Code(s): E11.9 - TYPE 2 DIABETES MELLITUS WITHOUT COMPLICATIONS Status: Chronic Current Visit: No (11) Gout SNOMED Code(s): 63906353 Code(s): M10.9 - GOUT, UNSPECIFIED Status: Chronic Current Visit: No (12) HLD (hyperlipidemia) SNOMED Code(s): 59038596 Code(s): E78.5 - HYPERLIPIDEMIA, UNSPECIFIED Status: Chronic Current Visit: No (13) History of breast cancer SNOMED Code(s): 559504813 Code(s): Z85.3 - PERSONAL HISTORY OF MALIGNANT NEOPLASM OF BREAST Status: Chronic Current Visit: No (14) History of colon cancer SNOMED Code(s): 111862133 Code(s): Z85.038 - PERSONAL HISTORY OF MALIGNANT NEOPLASM OF LARGE INTESTINE Status: Chronic Current Visit: No (15) Obesity SNOMED Code(s): 421966128, 585404016 Code(s): E66.9 - OBESITY, UNSPECIFIED Status: Chronic Current Visit: No Qualifiers: Body mass index: BMI 45.0-49.9 (16) Pathological fracture of sacral vertebra SNOMED Code(s): 01378103690817661 Code(s): M84.48XA - PATHOLOGICAL FRACTURE, OTHER SITE, INIT ENCNTR FOR FRACTURE Status: Chronic Current Visit: No Annotation/Comment:: MRI Lumbar without contrast: Aggressive appearing lesion involving the S1 & S2 segments with ventral epidural soft tissue component causing sever canal & right subarticular recess stenosis. Biopsy showed metastatic endometrial cancer, received radiation therapy, complicated by radiation neuropathy & radiation gastritis. 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 She has multiple cancers in her past medical history and now has metastatic endometrial cancer causing pathological fracture to the sacrum. Pain control and treatment as above. Continue treatment for chronic conditions including pain, diabetes, anxiety. Patient has had difficulty with anemia and received blood transfusion, 1 unit of packed red blood cells on 7 6 and 1 unit on 7 7. This position: Patient will likely be transferred to [facility] on 03/11/2021. She did have a fall from weakness and loss of balance this morning. Physical exam the room shows that she has some mild ecchymosis of the bilateral knees but she is able to flex and extend the knees without any significant discomfort.
[2021-03-08] MEDS: Polyethylene Glycol 3350 Powder 17 GM Packet PO PRN (11:46)
[2021-03-08] MEDS: Aspirin 81 MG Tab.EC PO SCH (20:11)
[2021-03-09] MEDS: Pantoprazole 40 MG Tab.CR PO SCH ×2 (06:32→20:20)
[2021-03-09] MEDS: Insulin Lispro 100 Unit/ML 3 ML KwikPen SUBCUT SCH ×3 (08:40→17:25)
[2021-03-09] MEDS: Rivaroxaban 15 MG Tab PO SCH ×2 (08:44→18:18)
[2021-03-09] MEDS: metFORMIN 1,000 MG Tab PO SCH ×2 (08:44→17:24)
[2021-03-09] MEDS: Dexamethasone 2 MG Tab PO SCH ×2 (08:45→17:25)
[2021-03-09] MEDS: DULoxetine 60 MG Cap PO SCH (08:46)
[2021-03-09] MEDS: Metoprolol Succinate 25 MG Tab.ER PO SCH (08:46)
[2021-03-09] MEDS: Megestrol 40 MG Tab PO SCH ×2 (08:47→20:20)
[2021-03-09] MEDS: Cholecalciferol (Vitamin D3) 25 MCG Tab PO SCH (08:47)
[2021-03-09] MEDS: Magnesium Chloride 64 MG Tab.ER PO SCH (08:47)
[2021-03-09] MEDS: Acetaminophen 500 MG Tab PO SCH ×2 (08:48→20:20)
[2021-03-09] MEDS: Docusate Sodium 100 MG Cap PO SCH ×2 (08:48→20:20)
[2021-03-09] MEDS: Allopurinol 300 MG Tab PO SCH (08:48)
[2021-03-09] MEDS: Ferrous Sulfate 325 MG Tab PO SCH (08:49)
[2021-03-09] MEDS: Polyethylene Glycol 3350 Powder 17 GM Packet PO PRN (09:07)
[2021-03-09] MEDS: Nystatin Susp 100,000 Unit/ML 5 ML UD Cup PO SCH ×4 (09:59→20:19)
[2021-03-09] MEDS: Ciprofloxacin 500 MG Tab PO SCH (20:19)
[2021-03-09] MEDS: Aspirin 81 MG Tab.EC PO SCH (20:20)
[2021-03-09] MEDS ORDERED: Sodium Phosphate,Monobasic/Sodium Phosphate,Dibasic Enema 133 ML Bottle RECTAL ONE (20:41)
[2021-03-10] MEDS: Pantoprazole 40 MG Tab.CR PO SCH ×2 (06:39→20:21)
[2021-03-10] MEDS: Insulin Lispro 100 Unit/ML 3 ML KwikPen SUBCUT SCH ×3 (08:00→17:45)
[2021-03-10] MEDS: metFORMIN 1,000 MG Tab PO SCH ×2 (08:04→17:45)
[2021-03-10] MEDS: Rivaroxaban 15 MG Tab PO SCH ×2 (08:04→19:10)
[2021-03-10] MEDS: Megestrol 40 MG Tab PO SCH ×2 (08:04→20:20)
[2021-03-10] MEDS: Dexamethasone 2 MG Tab PO SCH ×2 (08:04→17:45)
[2021-03-10] MEDS: Nystatin Susp 100,000 Unit/ML 5 ML UD Cup PO SCH ×5 (08:05→20:19)
[2021-03-10] MEDS: Metoprolol Succinate 25 MG Tab.ER PO SCH (08:05)
[2021-03-10] MEDS: Cholecalciferol (Vitamin D3) 25 MCG Tab PO SCH (08:05)
[2021-03-10] MEDS: Magnesium Chloride 64 MG Tab.ER PO SCH (08:06)
[2021-03-10] MEDS: Docusate Sodium 100 MG Cap PO SCH ×2 (08:06→20:20)
[2021-03-10] MEDS: Acetaminophen 500 MG Tab PO SCH ×2 (08:06→20:22)
[2021-03-10] MEDS: Ferrous Sulfate 325 MG Tab PO SCH (08:07)
[2021-03-10] MEDS: DULoxetine 60 MG Cap PO SCH (08:09)
[2021-03-10] MEDS: Allopurinol 300 MG Tab PO SCH (08:09)
[2021-03-10] MEDS: Ciprofloxacin 500 MG Tab PO SCH ×2 (08:11→20:27)
[2021-03-10] MEDS: Polyethylene Glycol 3350 Powder 17 GM Packet PO PRN (12:05)
[2021-03-10] MEDS ORDERED: Acetaminophen 500 MG Tab PO PRN (12:44)
[2021-03-10] MEDS: Aspirin 81 MG Tab.EC PO SCH (20:19)
[2021-03-11] MEDS: Pantoprazole 40 MG Tab.CR PO SCH (06:45)
[2021-03-11] MEDS: metFORMIN 1,000 MG Tab PO SCH (07:35)
[2021-03-11] MEDS: Dexamethasone 2 MG Tab PO SCH (07:35)
[2021-03-11] MEDS: Potassium Chloride 20 MEQ Tab.ER PO SCH (07:36)
[2021-03-11] MEDS: Rivaroxaban 15 MG Tab PO SCH (07:36)
[2021-03-11] MEDS: fentaNYL 50 MCG/HR Transdermal Patch TRDERM SCH (07:42)
[2021-03-11] MEDS: Insulin Lispro 100 Unit/ML 3 ML KwikPen SUBCUT SCH (09:11)
[2021-03-11] MEDS: Docusate Sodium 100 MG Cap PO SCH (09:16)
[2021-03-11] MEDS: Ciprofloxacin 500 MG Tab PO SCH (09:16)
[2021-03-11] MEDS: DULoxetine 60 MG Cap PO SCH (09:16)
[2021-03-11] MEDS: Ferrous Sulfate 325 MG Tab PO SCH (09:16)
[2021-03-11] MEDS: Furosemide 40 MG Tab PO SCH (09:16)
[2021-03-11] MEDS: Metoprolol Succinate 25 MG Tab.ER PO SCH (09:17)
[2021-03-11] MEDS: Magnesium Chloride 64 MG Tab.ER PO SCH (09:17)
[2021-03-11] MEDS: Megestrol 40 MG Tab PO SCH (09:17)
[2021-03-11] MEDS: Nystatin Susp 100,000 Unit/ML 5 ML UD Cup PO SCH (09:17)
[2021-03-11] MEDS: Cholecalciferol (Vitamin D3) 25 MCG Tab PO SCH (09:18)
[2021-03-11] MEDS: Acetaminophen 500 MG Tab PO SCH (09:18)
[2021-03-11] MEDS: Allopurinol 300 MG Tab PO SCH (09:19)
[2021-03-11] MEDS: HYDROmorphone 2 MG Tab PO PRN (10:08)
--- NOTE | 2021-03-11 12:10 | PCM.DCSUM1 ---
Discharge Summary - Hospital Course Free Text/Narrative:: 81-year-old lady has medical history for multiple cancers now with metastatic endometrial cancer. Patient was in assisted living but returned to swing bed status for further therapy. Patient will be discharged to correction. Patient will see oncology on March 18, 2021 and has been in discussions with hospice. Future decisions based on expert recommendations and patient status. Diagnosis: Stroke: No - Discharge Data Discharge Date: 03/11/21 Discharge Disposition: DC/Tfer to [facility] Condition: Poor - Referral to Home Health Primary Care Physician: Lg Duenas MD - Discharge Diagnosis/Problem(s) (1) Cancer, metastatic to bone Status: Chronic Current Visit: Yes Onset Date: ~11/2020 (2) Peripheral edema SNOMED Code(s): 971045708 ICD Code: R60.9 - EDEMA, UNSPECIFIED Status: Chronic Current Visit: Yes (3) Anemia SNOMED Code(s): 347801894 ICD Code: D64.9 - ANEMIA, UNSPECIFIED Status: Chronic Current Visit: No Qualifiers: Anemia type: unspecified type Qualified Code(s): D64.9 - Anemia, unspecified (4) Anxiety SNOMED Code(s): 24075084 ICD Code: F41.9 - ANXIETY DISORDER, UNSPECIFIED Status: Chronic Current Visit: No (5) Constipation due to opioid therapy SNOMED Code(s): 194964460304683 ICD Code: K59.03 - DRUG INDUCED CONSTIPATION; T40.2X5A - ADVERSE EFFECT OF OTHER OPIOIDS, INITIAL ENCOUNTER Status: Chronic Current Visit: No (6) Fall SNOMED Code(s): 8827198, 239651454 ICD Code: W19.XXXA - UNSPECIFIED FALL, INITIAL ENCOUNTER Status: Acute Current Visit: No Onset Date: ~12/10/20 (7) 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 SNOMED Code(s): 07259511, 756841536 ICD Code: C79.82 - SECONDARY MALIGNANT NEOPLASM OF GENITAL ORGANS Status: Chronic Current Visit: No (8) Palliative care encounter SNOMED Code(s): 507390177, 114583290 ICD Code: Z51.5 - ENCOUNTER FOR PALLIATIVE CARE Status: Acute Current Visit: No (9) Weakness SNOMED Code(s): 18832838 ICD Code: R53.1 - WEAKNESS Status: Acute Current Visit: No (10) Diabetes type 2, controlled SNOMED Code(s): 44924170, 688471310 ICD Code: E11.9 - TYPE 2 DIABETES MELLITUS WITHOUT COMPLICATIONS Status: Chronic Current Visit: No (11) Gout SNOMED Code(s): 25127771 ICD Code: M10.9 - GOUT, UNSPECIFIED Status: Chronic Current Visit: No (12) HLD (hyperlipidemia) SNOMED Code(s): 67677468 ICD Code: E78.5 - HYPERLIPIDEMIA, UNSPECIFIED Status: Chronic Current Visit: No (13) History of breast cancer SNOMED Code(s): 617557334 ICD Code: Z85.3 - PERSONAL HISTORY OF MALIGNANT NEOPLASM OF BREAST Status: Chronic Current Visit: No (14) History of colon cancer SNOMED Code(s): 668340070 ICD Code: Z85.038 - PERSONAL HISTORY OF MALIGNANT NEOPLASM OF LARGE INTESTINE Status: Chronic Current Visit: No (15) Obesity SNOMED Code(s): 714065889, 692567157 ICD Code: E66.9 - OBESITY, UNSPECIFIED Status: Chronic Current Visit: No Qualifiers: Body mass index: BMI 45.0-49.9 (16) Pathological fracture of sacral vertebra SNOMED Code(s): 41453256596898252 ICD Code: M84.48XA - PATHOLOGICAL FRACTURE, OTHER SITE, INIT ENCNTR FOR FRACTURE Status: Chronic Current Visit: No Problem Details: MRI Lumbar without contrast: Aggressive appearing lesion involving the S1 & S2 segments with ventral epidural soft tissue component causing sever canal & right subarticular recess stenosis. Biopsy showed metastatic endometrial cancer, received radiation therapy, complicated by radiation neuropathy & radiation gastritis. 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 OT Reason for Consult: ADL's This query below is only for informational purposes and is not editable. PT Evaluation and Treatment [CONS] Routine Please Evaluate and Treat. PT Reason for Consult: Ambulation This query below is only for informational purposes and is not editable. 03/05/21 19:00 Consult to Hospice [CONS] Routine Comment: Physician Instructions: - Discharge Plan *PRESCRIPTION DRUG MONITORING PROGRAM REVIEWED*: Not Applicable *COPY OF PRESCRIPTION DRUG MONITORING REPORT IN PATIENT TYRONE: Not Applicable Prescriptions/Med Rec: Ciprofloxacin [Ciprofloxacin HCl] 500 mg PO BID #3 tablet HYDROmorphone [Dilaudid] 1 mg PO Q8H PRN #15 tablet PRN Reason: PAIN fentaNYL [Duragesic] 50 mcg TD Q72H #2 patch Potassium Chloride [Klor-Con M20] 20 meq PO MOWEFR #15 tab.er Nystatin [Mycostatin] 5 ml PO QID #200 ml Pantoprazole [ProTONIX] 40 mg PO BID@0730,2100 #60 tab.cr Rivaroxaban [Xarelto] 15 mg PO BIDMEALS #15 tablet Rivaroxaban [Xarelto] 20 mg PO WITHDINNER #30 tablet Home Medications: Home Meds allopurinoL [Zyloprim] 300 mg PO DAILY 10/16/19 [History] polyethylene glycoL 3350 [MiraLAX] 17 gm PO DAILY PRN 10/16/19 [History] Ferrous Sulfate 325 mg PO DAILY 10/17/19 [History] Aspirin [Halfprin] 81 mg PO BEDTIME 12/20/20 [History] Cholecalciferol (Vitamin D3) [Vitamin D3] 2,000 unit PO DAILY 12/20/20 [History] Nystatin [Nystatin Crm] 1 applic TOP TID PRN 12/20/20 [History] metFORMIN [Glucophage] 1,000 mg PO BIDMEALS 12/20/20 [History] DULoxetine [Cymbalta] 60 mg PO DAILY 02/15/21 [History] Docusate Sodium 100 mg PO BID 02/15/21 [History] Magnesium Chloride [Mag-64] 64 mg PO DAILY 02/15/21 [History] Megestrol [Megace] 80 mg PO BID 02/15/21 [History] Naloxone [Narcan] 0.4 mg IM ASDIRECTED PRN 02/15/21 [History] Ondansetron [Zofran ODT] 4 mg PO Q4H PRN 02/15/21 [History] PEG 400/Hypromellose/Glycerin [Dry Eye Relief Eye Drops] 1 drop EYEBOTH Q4H PRN 02/15/21 [History] Acetaminophen [Tylenol Extra Strength] 500 mg PO BID tablet 03/11/21 [Rx] Ciprofloxacin [Ciprofloxacin HCl] 500 mg PO BID #3 tablet 03/11/21 [Rx] Furosemide [Lasix] 40 mg PO MOWEFR tablet 03/11/21 [Rx] HYDROmorphone [Dilaudid] 1 mg PO Q8H PRN #15 tablet 03/11/21 [Rx] Metoprolol Succinate [Toprol XL] 12.5 mg PO DAILY tab.er 03/11/21 [Rx] Nystatin [Mycostatin] 5 ml PO QID #200 ml 03/11/21 [Rx] Pantoprazole [ProTONIX] 40 mg PO BID@0730,2100 #60 tab.cr 03/11/21 [Rx] Potassium Chloride [Klor-Con M20] 20 meq PO MOWEFR #15 tab.er 03/11/21 [Rx] Rivaroxaban [Xarelto] 15 mg PO BIDMEALS #15 tablet 03/11/21 [Rx] Rivaroxaban [Xarelto] 20 mg PO WITHDINNER #30 tablet 03/11/21 [Rx] dexAMETHasone [Dexamethasone] 2 mg PO BIDMEALS tablet 03/11/21 [Rx] fentaNYL [Duragesic] 50 mcg TD Q72H #2 patch 03/11/21 [Rx] - Discharge Summary/Plan Comment DC Time >30 min.: No - General Info Date of Service: 03/11/21 Admission Dx/Problem (Free Text: Admission Diagnosis/Problem Admission Diagnosis/Problem Weakness Subjective Update: Patient states that she continues to be have significant weakness and fatigue but she has no new specific concerns today - Review of Systems General: Reports: Weakness, Fatigue, Malaise HEENT: Reports: No Symptoms Pulmonary: Reports: No Symptoms Cardiovascular: Reports: No Symptoms Gastrointestinal: Reports: No Symptoms Genitourinary: Reports: Dysuria Musculoskeletal: Reports: Leg Pain Skin: Reports: No Symptoms Neurological: Reports: Difficulty Walking, Weakness Psychiatric: Reports: Depression - Patient Data Vitals - Most Recent: Last Vital Signs Temp 37.1 C 03/11/21 08:00 Pulse 100 03/11/21 09:17 Resp 14 03/11/21 08:00 BP 121/61 03/11/21 09:17 Pulse Ox 94 L 03/11/21 08:00 Orthostatic Blood Pressure [ 134/86 Standing] Orthostatic Blood Pressure [ 140/92 Sitting] Weight - Most Recent: 108.182 kg I&O - Last 24 hours: Intake & Output 03/10/21 03/11/21 03/11/21 22:59 06:59 14:59 Intake Total 60 Balance 60 Lab Results - Last 24 hrs: Laboratory Results - last 24 hr 03/10/21 03/10/21 03/10/21 Range/Units 11:55 17:01 22:00 Hgb (11.4-15.5) g/dL Hct (34.2-48.2) % POC Glucose 152 H 158 H 149 H (80-116) mg/dL 03/11/21 03/11/21 Range/Units 07:05 07:23 Hgb 7.5 L (11.4-15.5) g/dL Hct 22.4 L (34.2-48.2) % POC Glucose 115 (80-116) mg/dL LEIGH Results - Last 24 hrs: Microbiology 03/09/21 17:24 Urine Culture - Final Urine, Catheterized MIXED POSITIVE TIGIST DAY 2 Med Orders - Current: Current Medications Acetaminophen (Acetaminophen 500 Mg Tab) 500 mg PO BID [facility] Last Admin: 03/11/21 09:18 Dose: 500 mg Documented by: Acetaminophen (Acetaminophen 500 Mg Tab) 500 mg PO Q4H PRN PRN Reason: Pain Last Admin: 03/10/21 12:56 Dose: 500 mg Documented by: Allopurinol (Allopurinol 300 Mg Tab) 300 mg PO DAILY [facility] Last Admin: 03/11/21 09:19 Dose: 300 mg Documented by: Artificial Tears (Polyvinyl Alcohol 1.4% Ophth Soln 15 Ml Bottle) 0 ml EYEBOTH Q4H PRN PRN Reason: Dry Eyes Aspirin (Aspirin 81 Mg Tab.Ec) 81 mg PO BEDTIME [facility] Last Admin: 03/10/21 20:19 Dose: 81 mg Documented by: Cholecalciferol (Cholecalciferol (Vitamin D3) 25 Mcg Tab) 50 mcg PO DAILY [facility] Last Admin: 03/11/21 09:18 Dose: 50 mcg Documented by: Ciprofloxacin (Ciprofloxacin 500 Mg Tab) 500 mg PO BID [facility] Stop: 03/12/21 09:01 Last Admin: 03/11/21 09:16 Dose: 500 mg Documented by: Al Hydroxide/Mg Hydroxide 10 ml/ Lidocaine HCl 10 ml/Diphenhydramine HCl 25 mg 0 ml PO Q6H PRN PRN Reason: ORAL DISCOMFORT Dexamethasone (Dexamethasone 2 Mg Tab) 2 mg PO BIDMEALS [facility] Last Admin: 03/11/21 07:35 Dose: 2 mg Documented by: Dextrose/Water (50% Dextrose In Water 50 Ml Syringe) 50 ml IVPUSH ASDIRECTED PRN PRN Reason: Hypoglycemia Docusate Sodium (Docusate Sodium 100 Mg Cap) 100 mg PO BID [facility] Last Admin: 03/11/21 09:16 Dose: 100 mg Documented by: Duloxetine HCl (Duloxetine 60 Mg Cap) 60 mg PO DAILY [facility] Last Admin: 03/11/21 09:16 Dose: 60 mg Documented by: Fentanyl (Fentanyl 50 Mcg/Hr Transdermal Patch) 50 mcg TRDERM Q72H [facility] Last Admin: 03/11/21 07:42 Dose: 50 mcg Documented by: Ferrous Sulfate (Ferrous Sulfate 325 Mg Tab) 325 mg PO DAILY [facility] Last Admin: 03/11/21 09:16 Dose: 325 mg Documented by: Furosemide (Furosemide 40 Mg Tab) 40 mg PO MOWEFR [facility] Last Admin: 03/11/21 09:16 Dose: 40 mg Documented by: Glucagon (Glucagon,Human Recombinant 1 Mg Vial) 1 mg IM ASDIRECTED PRN PRN Reason: Hypoglycemia Hydromorphone HCl (Hydromorphone 2 Mg Tab) 1 mg PO Q8H PRN PRN Reason: PAIN Last Admin: 03/11/21 10:08 Dose: 1 mg Documented by: Sodium Chloride (Normal Saline) 250 mls @ 100 mls/hr IV ASDIRECTED [facility] Insulin Human Lispro (Insulin Lispro 100 Unit/Ml 3 Ml Kwikpen) 0 unit SUBCUT TIDMEALS [facility]; Protocol Last Admin: 03/11/21 09:11 Dose: Not Given Documented by: Magnesium Chloride (Magnesium Chloride 64 Mg Tab.Er) 64 mg PO DAILY [facility] Last Admin: 03/11/21 09:17 Dose: 64 mg Documented by: Megestrol Acetate (Megestrol 40 Mg Tab) 80 mg PO BID [facility] Last Admin: 03/11/21 09:17 Dose: 80 mg Documented by: Metformin HCl (Metformin 1,000 Mg Tab) 1,000 mg PO BIDMEALS [facility] Last Admin: 03/11/21 07:35 Dose: 1,000 mg Documented by: Metoprolol Succinate (Metoprolol Succinate 25 Mg Tab.Er) 12.5 mg PO DAILY [facility] Last Admin: 03/11/21 09:17 Dose: 12.5 mg Documented by: Naloxone HCl (Naloxone 0.4 Mg/Ml Sdv) 0.4 mg IM ASDIRECTED PRN PRN Reason: Respiratory Depression Nystatin (Nystatin Crm 15 Gm Tube) 0 gm TOP TID PRN PRN Reason: Rash Nystatin (Nystatin Susp 100,000 Unit/Ml 5 Ml Ud Cup) 5 ml PO QID [facility] Last Admin: 03/11/21 09:17 Dose: 5 ml Documented by: Ondansetron HCl (Ondansetron 4 Mg Tab.Dis) 4 mg PO Q4H PRN PRN Reason: Nausea/Vomiting Last Admin: 03/05/21 13:27 Dose: 4 mg Documented by: Pantoprazole Sodium (Pantoprazole 40 Mg Tab.Cr) 40 mg PO BID@0730,2100 [facility] Last Admin: 03/11/21 06:45 Dose: 40 mg Documented by: Polyethylene Glycol (Polyethylene Glycol 3350 Powder 17 Gm Packet) 17 gm PO DAILY PRN PRN Reason: Constipation Last Admin: 03/09/21 09:07 Dose: 17 gm Documented by: Potassium Chloride (Potassium Chloride 20 Meq Tab.Er) 20 meq PO MOWEFR [facility] Last Admin: 03/11/21 07:36 Dose: 20 meq Documented by: Rivaroxaban (Rivaroxaban 20 Mg Tab) 20 mg PO WITHDINNER [facility] Rivaroxaban (Rivaroxaban 15 Mg Tab) 15 mg PO BIDMEALS [facility] Stop: 03/18/21 18:01 Last Admin: 03/11/21 07:36 Dose: 15 mg Documented by: Discontinued Medications Acetaminophen (Acetaminophen 325 Mg Tab) 650 mg PO Q6H PRN PRN Reason: MILD PAIN (1-3/10) Dexamethasone (Dexamethasone 1 Mg Tab) 1 mg PO BIDMEALS [facility] Last Admin: 02/18/21 08:08 Dose: 1 mg Documented by: Dexamethasone (Dexamethasone 1 Mg Tab) 1 mg PO ONETIME ONE Stop: 02/18/21 09:46 Last Admin: 02/18/21 11:07 Dose: 1 mg Documented by: Enoxaparin Sodium (Enoxaparin 40 Mg/0.4 Ml Syringe) 40 mg SUBCUT DAILY [facility] Last Admin: 02/26/21 09:41 Dose: 40 mg Documented by: Enoxaparin Sodium (Enoxaparin 40 Mg/0.4 Ml Syringe) 100 mg SUBCUT Q12H [facility] Furosemide (Furosemide 40 Mg Tab) 40 mg PO ONETIME ONE Stop: 02/16/21 08:01 Last Admin: 02/16/21 08:31 Dose: 40 mg Documented by: Hydromorphone HCl (Hydromorphone 2 Mg Tab) 2 mg PO Q4H PRN PRN Reason: PAIN 6-10/10 Last Admin: 02/19/21 09:30 Dose: 2 mg Documented by: Hydromorphone HCl (Hydromorphone 2 Mg Tab) 1 mg PO Q12H [facility] Last Admin: 02/27/21 08:07 Dose: 1 mg Documented by: Insulin Human Lispro (Insulin Lispro 100 Unit/Ml 3 Ml Kwikpen) 300 unit SUBCUT .STK-MED ONE Stop: 02/15/21 17:22 Iopamidol (Iopamidol 755 Mg/Ml 100 Ml Bottle) 100 ml IV . DIRECTED ONE Stop: 02/26/21 08:27 Last Admin: 02/26/21 09:15 Dose: 90 ml Documented by: Nystatin (Nystatin Susp 100,000 Unit/Ml 5 Ml Ud Cup) 5 ml PO TID [facility] Stop: 02/22/21 21:01 Last Admin: 02/22/21 21:22 Dose: 5 ml Documented by: Nystatin (Nystatin Crm 30 Gm Tube) 0 gm TOP TID PRN PRN Reason: Rash Pantoprazole Sodium (Pantoprazole 40 Mg Tab.Cr) 40 mg PO DAILY@0600 [facility] Last Admin: 02/17/21 05:40 Dose: 40 mg Documented by: Sertraline HCl (Sertraline 50 Mg Tab) 50 mg PO DAILY [facility] Last Admin: 02/17/21 08:21 Dose: Not Given Documented by: Sertraline HCl (Sertraline 50 Mg Tab) 50 mg PO BEDTIME [facility] Sertraline HCl (Sertraline 50 Mg Tab) 50 mg PO Q48H [facility] Stop: 02/21/21 20:01 Last Admin: 02/17/21 20:28 Dose: 50 mg Documented by: Sertraline HCl (Sertraline 25 Mg Tab) 25 mg PO ONETIME ONE Stop: 02/19/21 18:01 Last Admin: 02/19/21 18:31 Dose: 25 mg Documented by: Sodium Biphosphate/Sodium Phosphate (Sodium Phosphate,Monobasic/Sodium Phosphate,Dibasic Enema 133 Ml Bottle) 133 ml RECTAL ONETIME ONE Stop: 03/09/21 20:42 Last Admin: 03/09/21 21:58 Dose: 133 ml Documented by: Trimethoprim/Sulfamethoxazole (Sulfamethoxazole/Trimethoprim 800-160 Mg Tab) 1 tab PO BID [facility] Last Admin: 02/24/21 21:20 Dose: 1 tab Documented by: Comments:: Patient was lying in bed resting, awake, alert - Exam Quality Assessment: Reports: Supplemental Oxygen, DVT Prophylaxis General: Reports: Alert, Oriented, Cooperative, No Acute Distress HEENT: Reports: EOMI Lungs: Reports: Clear to Auscultation Cardiovascular: Reports: Regular Rate, Regular Rhythm, No Murmurs, Other (Heart sounds are distant and difficult to auscultate) GI/Abdominal Exam: Normal Bowel Sounds, Non-Tender Extremities: Pedal Edema Skin: Reports: Warm, Dry, Intact Neurological: Reports: No New Focal Deficit Psy/Mental Status: Reports: Alert, Depressed
== END 2021-03-11 10:45 | DRG 947 ==
LOC: FB.MS 14:48
PROVIDERS: ADMIT Family Medicine; ATTEND Student in an Organized Health Care Education/Training Program
PROC: 30233N1 Transfusion of Nonautologous Red Blood Cells into Peripheral Vein, Percutaneous Approach (ICD-10-PCS; principal; 2021-03-07)
DX: R53.1 Weakness (principal); I26.99 Other pulmonary embolism without acute cor pulmonale; C79.51 Secondary malignant neoplasm of bone; C79.82 Secondary malignant neoplasm of genital organs; M84.48XA Pathological fracture, other site, initial encounter for fracture; Z68.41 Body mass index [BMI] 40.0-44.9, adult; C54.1 Malignant neoplasm of endometrium; R60.9 Edema, unspecified; D64.9 Anemia, unspecified; F41.9 Anxiety disorder, unspecified; K59.03 Drug induced constipation; T40.2X5A Adverse effect of other opioids, initial encounter; W19.XXXA Unspecified fall, initial encounter; Z51.5 Encounter for palliative care; E11.9 Type 2 diabetes mellitus without complications; M10.9 Gout, unspecified; E78.5 Hyperlipidemia, unspecified; G62.0 Drug-induced polyneuropathy; T45.1X5A Adverse effect of antineoplastic and immunosuppressive drugs, initial encounter; F32.9 Major depressive disorder, single episode, unspecified; E78.00 Pure hypercholesterolemia, unspecified; R32 Unspecified urinary incontinence; E11.42 Type 2 diabetes mellitus with diabetic polyneuropathy; Z96.653 Presence of artificial knee joint, bilateral; E03.9 Hypothyroidism, unspecified; E66.9 Obesity, unspecified; Z98.41 Cataract extraction status, right eye; Z98.42 Cataract extraction status, left eye; Z85.3 Personal history of malignant neoplasm of breast; Z79.82 Long term (current) use of aspirin; Z79.899 Other long term (current) drug therapy; Z79.01 Long term (current) use of anticoagulants; Z90.710 Acquired absence of both cervix and uterus; Z90.13 Acquired absence of bilateral breasts and nipples; Z85.42 Personal history of malignant neoplasm of other parts of uterus; R91.8 Other nonspecific abnormal finding of lung field; Z79.4 Long term (current) use of insulin
CPT/HCPCS: 36415; 36430; 71275; 80048; 81001; 82947; 84439; 84443; 84481; 85014; 85018; 85025; 85027; 86850; 86900; 86901; 86920; 86922; 87086; 87088; 87186; 94150; 97110-GO; 97116-GP; 97162-GP; 97166-GO; 97530-GO; 97530-GP; 97535-GO; A9270-GY; J1650; J1815; J8540; P9016; Q9967